=== PATIENT | male | born 1950 | race Hispanic/Latino ===

== ENCOUNTER 2024-12-04 06:41 | Inpatient (IN) | payer MEDICARE ==
[2024-12-04] VITALS (21 sets, daily range): BP systolic 90–146; BP diastolic 42–70; PULSE 75–103; RESP 10–21; TEMP 98.2–99.1; O2SAT 97
[~2024-12-04] VITALS: Ht 172.7 cm; Wt 82.6 kg
[2024-12-04 07:22] LABS: IMMATURE GRANULOCYTE ABSOLUTE 0.03 K/uL (0-1); NUCLEATED RED BLOOD CELLS 0.0 % (0.0-0.19); PLATELET COUNT (AUTO) 145 K/uL (130-400); RED BLOOD CELL COUNT(AUTO) 4.32 MIL/uL (4.50-6.20); RED CELL DISTRIBUTION WIDTH 12.6 % (11.0-15.5); WHITE BLOOD COUNT (AUTO) 7.9 K/uL (4.8-10.8)
--- NOTE | 2024-12-04 07:23 | ERN ---
General Chief Complaint: Hypotension Stated Complaint: C/O WEAKNESS,DIZZINESS,LEFT FLANK PAIN, N X V Time Seen by MD: 06:57 Source: patient, family History of Present Illness Initial Comments 74-year-old male with no past medical history comes in with a history of vomiting for four days and is now hypotensive. Per patient these symptoms began three days ago. Patient felt very weak and has been having nauseousness as well Allergies: Coded Allergies: No Known Allergies (Unverified Allergy, Unknown, 12/04/24) Past Medical History Past Medical History: No Pertinent History Past Surgical History: Other Surgical History Other: POLYP REMOVED Constitutional: (-) chills, (-) diaphoresis, (-) fever, (-) malaise, (-) weakness, (-) other documentation EENTM: (-) eye pain, (-) blurred vision, (-) tearing, (-) double vision, (-) ear pain, (-) ear discharge, (-) nose pain, (-) nose congestion, (-) throat pain, (-) Throat swelling, (-) mouth pain, (-) tooth pain, (-) mouth swelling, (-) other documentation Respiratory: (-) cough, (-) orthopnea, (-) short of breath, (-) stridor, (-) wheezing, (-) other documentation Cardiovascular: (-) chest pain, (-) edema, (-) palpitations, (-) syncope, (-) dyspnea on exertion, (-) other documentation Gastrointestinal/Abdominal: (+) nausea, (+) diarrhea Genitourinary: (-) penile discharge, (-) dysuria, (-) frequency, (-) hematuria, (-) pain, (-) other documentation Musculoskeletal: (-) Neck pain, (-) back pain, (-) Flank Pain, (-) joint pain, (-) joint swelling, (-) muscle pain, (-) muscle stiffness, (-) gout, (-) other documentation Skin: (-) laceration, (-) contusion, (-) abrasion, (-) abscess, (-) rash, (-) change in color, (-) change in hair, (-) change in nails, (-) diaphoresis, (-) dryness, (-) other documentation Neuro: (+) syncope Physical Exam General Appearance: (+) mild distress Orientation: (+) alert, (+) oriented x 3 Head/Face Trauma: No Eye: bilateral eye normal inspection, bilateral eye PERRL, bilateral eye EOMI Ear, Nose, Throat: (+) hearing grossly normal, (+) normal ENT inspection, (+) moist mucous membraine Neck: (+) normal inspection, (+) supple Respiratory: (+) chest non-tender, (+) lungs clear, (+) well ventilated Heart: (+) regular, (+) no gallop Vascular: (+) no edema, (+) normal peripheral pulse, (+) no JVD Gastrointestinal: (+) soft, (+) non-tender, (+) no organomegaly, (+) bowel sound present Results Laboratory and Microbiology Lab and Micro Result Laboratory Tests Test 12/04/24 07:14 12/04/24 08:22 White Blood Count 7.9 K/uL (4.8-10.8) Red Blood Count 4.32 MIL/uL (4.50-6.20) L Hemoglobin 14.2 g/dL (14.0-18.0) Hematocrit 38.7 % (42-54) L Mean Corpuscular Volume 89.6 fL (79-99) Mean Corpuscular Hemoglobin 32.9 pg (27.0-33.0) Mean Corpuscular Hemoglobin Concent 36.7 g/dL (32.0-36.0) H Red Cell Distribution Width 12.6 % (11.0-15.5) Platelet Count 145 K/uL (130-400) Mean Platelet Volume 10.1 fL (7.5-10.5) Immature Granulocyte % (Auto) 0.4 % (0-1) Neutrophils (%) (Auto) 96.6 % (40.0-77.0) H Lymphocytes (%) (Auto) 2.5 % (21.0-51.0) L Monocytes (%) (Auto) 0.3 % (3.0-13.0) L Eosinophils (%) (Auto) 0.1 % (0.0-8.0) Basophils (%) (Auto) 0.1 % (0.0-5.0) Neutrophils # (Auto) 7.6 K/uL (1.8-7.7) Lymphocytes # (Auto) 0.2 K/uL (1.0-4.8) L Monocytes # (Auto) 0.0 K/uL (0.1-1.0) L Eosinophils # (Auto) 0.01 K/uL (0.00-0.70) Basophils # (Auto) 0.01 K/uL (0.00-0.20) Absolute Immature Granulocyte (auto 0.03 K/uL (0-1) Nucleated Red Blood Cells 0.0 % (0.0-0.19) White Cell Morphology Comment See comments Red Blood Cell Morphology See comments Sodium Level 139 mmol/L (136-145) Potassium Level 3.2 mmol/L (3.5-5.1) L Chloride Level 106 mmol/L (101-111) Carbon Dioxide Level 18 mmol/L (21-32) L Blood Urea Nitrogen 23 mg/dL (7-18) H Creatinine 1.7 mg/dL (0.5-1.3) H Glomerular Filtration Rate Calc 42 mL/min (>90) Random Glucose 137 mg/dL (70-105) H Lactic Acid Level 5.3 mmol/L (0.8-2.5) H Total Calcium 8.6 mg/dL (8.5-10.1) Total Bilirubin 3.7 mg/dL (0.2-1.0) H Aspartate Amino Transf (AST/SGOT) 129 U/L (10-37) H Alanine Aminotransferase (ALT/SGPT) 82 U/L (12-78) H Alkaline Phosphatase 157 U/L (50-136) H Troponin I High Sensitivity 99 ng/L (4-75) *H 148 ng/L (4-75) *H B-Type Natriuretic Peptide 78 pg/mL (0-100) Total Protein 6.6 g/dL (6.0-8.3) Albumin 2.8 g/dL (3.5-5.0) L Lipase 94 U/L (16-77) H Procalcitonin 11.63 ng/mL (0.05-0.5) H Labs Reviewed?: Yes EKG/XRAY/US/CT/MRI EKG Comment 12/04/2024 time 7:05 a.m. Ventricular rate 106 Sinus tachycardia ID [id number] wave elevation or depression Ultrasound Comment IMAGING REPORT Signed PATIENT: OSITO MONTEZ MR#: [id number] : 1950 SEX: M AGE: 74 LOCATION: [facility] ORDER 4 STATUS: REG ER REPORT#: [id number] SERVICE [id number] REASON: ruq pain ORDERING PHYSICIAN: SUSIE ARNDT MD PROCEDURE: ABDRUQLTD - US ABDOMINAL RUQ\LTD EXAM: US Abdomen, Right Upper Quadrant. CLINICAL HISTORY: ruq pain TECHNIQUE: Right upper quadrant sonography performed with image documentation. COMPARISON: None provided. FINDINGS: Moderate LIVER: Within normal limits in size( 15 cm) and echogenicity. No mass. GALLBLADDER: Calculi noted within gall bladder lumen. No gallbladder wall thickening (2mm) seen. COMMON BILE DUCT: Within normal limits in size (4 mm). Prominent left intrahepatic biliary duct, measuring 3mm. PANCREAS: The distal pancreas is obscured by bowel gas. The visualized portion of the pancreas appears within normal limits. RIGHT KIDNEY: Unremarkable, measuring 10.3 x 5.2 x 4.2 cm.. Normal renal contours. No renal mass or calculus. No hydronephrosis. IMPRESSION: Cholelithiasis. Prominent left intrahepatic biliary duct, measuring 3mm. MRI/MRCP recommended for further evaluation. /[place] DICTATED BY: FARIDEH FINN MD DATE: 12/04/24922 ELECTRONICALLY SIGNED BY: FARIDEH FINN MD DATE: 12/04/249[address] [place] [id number] IMAGING REPORT Signed PATIENT: OSITO MONTEZ MR#: [id number] : 1950 SEX: M AGE: 74 LOCATION: ED ORDER 3 STATUS: REG ER REPORT#: [id number] SERVICE 2 REASON: left flank pain ORDERING PHYSICIAN: SUSIE ARNDT MD PROCEDURE: ABD PEL WO - CT ABDOMEN/PELVIS W/O CONTRAST EXAM: CT Abdomen and Pelvis Without IV contrast CLINICAL HISTORY: left flank pain TECHNIQUE: Axial computed tomography images of the abdomen and pelvis without intravenous contrast. CONTRAST: No IV contrast. COMPARISON: None provided. FINDINGS: LUNG BASES: The lung bases appear clear. No pleural effusions are seen. LIVER: Fatty liver. GALLBLADDER AND BILE DUCTS: Cholelithiasis. Cholelithiasis. PANCREAS: Unremarkable. SPLEEN: Unremarkable. ADRENAL GLANDS: Unremarkable. KIDNEYS, URETERS, AND BLADDER: The kidneys appear within normal limits. There is no hydronephrosis or hydroureter. No urinary calculi are seen. STOMACH AND BOWEL: Status post extended right colectomy with ileocolic anastomosis. APPENDIX: No evidence of acute appendicitis on CT examination. PERITONEUM: No free fluid. No free air. LYMPH NODES: No lymphadenopathy is evident. REPRODUCTIVE: Unremarkable as visualized. VASCULATURE: No evidence of abdominal aortic aneurysm. BONES: Moderate degenerative disc of the spine. MISCELLANEOUS: Fat-containing umbilical hernia. IMPRESSION: 1. No acute intraabdominal or pelvic pathology. 2. Fatty liver. 3. Cholelithiasis. 4. Status post extended right colectomy with ileocolic anastomosis. 5. Fat-containing umbilical hernia. 6. Moderate degenerative disc disease of the spine. /[place] DICTATED BY: FARIDEH FINN MD DATE: 12/04/24 100 ELECTRONICALLY SIGNED BY: FARIDEH FINN MD DATE: 12/04/24 1003 [facility] MDM: Differential diagnosis: Gastroenteritis, dehydration, DKA, acute CA, UTI, cholecystitis, sepsis Rationale: Tests considered and ordered secondary to shared decision making include: Previous outside records reviewed: Old ER visits. Risk of complication and/or morbidity or mortality of patient management: None Medications-Per medication reconciliation Need for hospitalization: Patient does meet criteria for hospitalization. Need for emergency major/minor surgery: No There are no social concerns with this patient. Prescription drug management Prescriptions will include symptomatic care Patient's prior external medical records from other ER visits were reviewed by me as indicated. Prior testing and results from previous visits were reviewed. Prior tests were taken into account with medical decision making and resource utilization, independent historian/historians were used to obtain complete medical history. I independently interpreted the test that were performed, results were reviewed by me and considered findings on radiology if ordered. PATIENT WILL BE ADMITTED UNDER THE CARE OF HOSPITALIST GROUP ED Course Orders Procedure Category Date Status Time Comprehensive LAB 12/04/24 Complete Metabolic Panel 07:07 Cbc With Differential LAB 12/04/24 Complete 07:07 Urinalysis Profile LAB 12/04/24 Logged 07:07 Troponin I High LAB 12/04/24 Complete Sensitivity 07:07 Lactic Acid LAB 12/04/24 Complete 07:07 Procalcitonin LAB 12/04/24 Complete 07:07 12 Lead Ekg Tracing- EKG 12/04/24 Logged Technical 07:07 Ondansetron 4mg Inj PHA 12/04/24 Complete (Zofran 4mg Inj) 07:30 Lactated Ringers PHA 12/04/24 Complete 1000ml (Lactated 07:07 Lipase LAB 12/04/24 Complete 07:43 Us Abdominal Ruq\Ltd US 12/04/24 Resulted 07:44 Troponin I High LAB 12/04/24 Complete Sensitivity 07:46 B-Type Natriuretic LAB 12/04/24 Complete Peptide 07:52 Ct Abdomen/Pelvis W/O CT 12/04/24 Resulted Contrast 07:53 Acetaminophen 500mg PHA 12/04/24 Complete Tab (Tylenol 500mg T 08:30 Zosyn 3.375gm+Ns 50ml PHA 12/04/24 In Process (Zosyn 3.375gm+Ns 09:30 Ns 1000ml @___Ml/Hr X1 PHA 12/04/24 Verified 09:30 Current Medications Medications (Trade) Dose Ordered Sig/Panchito Route PRN Reason Start Time Stop Time Status Last Admin Dose Admin Acetaminophen (TYLenol 500MG TAB) 1,000 mg ONCE ONCE PO 12/04/24 08:30 12/04/24 08:31 DC 12/04/24 08:29 Lactated Ringer's (Lactated Ringers 1000ml) 1,000 ml BOLUS STAT IV 12/04/24 07:07 12/04/24 07:14 DC 12/04/24 07:40 Ondansetron HCl (zoFRAN 4MG INJ) 4 mg ONCE ONCE IVP 12/04/24 07:30 12/04/24 07:31 DC 12/04/24 07:40 Piperacillin Sod/ Tazobactam Sod (Zosyn 3.375gm+NS 50ml) 3.375 gm ONCE ONCE IV 12/04/24 09:30 12/04/24 09:31 Vital Signs Date Time Temp Pulse Resp B/P (MAP) Pulse Ox O2 Delivery O2 Flow Rate FiO2 12/04/24 08:49 98.4 89 19 95/48 99 Room Air* 0 21 12/04/24 08:29 100.0 12/04/24 07:48 100.0 95 18 93/40 99 Room Air* 0 21 12/04/24 07:34 100.0 102 18 87/47 99 Room Air* 0 21 12/04/24 07:17 102 18 82/48 97 Room Air* 0 21 12/04/24 06:47 100.8 74 20 89/47 96 Room Air Critical Care Note Comments CRITICAL CARE PROCEDURE NOTE AUTHORIZED AND PERFORMED BY: ME TOTAL CRITICAL CARE TIME: APPROXIMATELY 36 MINUTES DUE TO A HIGH PROBABILITY OF CLINICALLY SIGNIFICANT, LIFE THREATENING DETERIORATION, THE PATIENT REQUIRED MY HIGHEST LEVEL OF PREPAREDNESS TO INTERVEN E EMERGENTLY AND I PERSONALLY SPENT THIS CRITICAL CARE TIME DIRECTLY AND PERSONALLY MANAGING THE PATIENT. THIS CRITICAL CARE TIME INCLUDED OBTAINING A HISTORY; EXAMINING THE PATIENT; PULSE OXIMETRY; ORDERING AND REVIEW OF STUDIES; ARRANGING URGENT TREATMENT WITH DEVELOPMENT OF A MANAGEMENT PLAN; EVALUATION OF PATIENT'S RESPONSE TO TREATMENT; FREQUENT REASSESSMENT; AND, DISCUSSIONS WITH OTHER PROVIDERS. THIS CRITICAL CARE TIME WAS PERFORMED TO ASSESS AND MANAGE THE HIGH PROBABILITY OF IMMINENT, LIFE-THREATENING DETERIORATION THAT COULD RESULT IN MULTI-ORGAN FAILURE. IT WAS EXCLUSIVE OF SEPARATELY BILLABLE PROCEDURES AND TREATING OTHER PATIENTS AND TEACHING TIME. PLEASE SEE MDM SECTION AND THE REST OF THE NOTE FOR FURTHER INFORMATION ON PATIENT ASSESSMENT AND TREATMENT. DX & DISP Disposition: Inpatient Decision to Admit Time: 09:19 Departure Impression: Primary Impression: Cholecystitis Additional Impressions: Lactic acidosis, ACS (acute coronary syndrome), SHAHRIAR (acute kidney injury), Hypotension, Sepsis Condition: Stable Referrals: NONE (PCP) JC DIALLO MD Dec 04, 2024 07:23 SUSIE ARNDT MD Dec 04, 2024 09:09
[2024-12-04 07:35] LABS: ASPARTATE AMINOTRANSFERASE 129.0 U/L (10-37); CREATININE 1.7 mg/dL (0.5-1.3); GLOMERULAR FILTR. RATE CALC 42.0 mL/min (>90); GLUCOSE,RANDOM 137.0 mg/dL (70-105); SODIUM SERUM 139.0 mmol/L (136-145); TOTAL PROTEIN, SERUM 6.6 g/dL (6.0-8.3); UREA NITROGEN, BLOOD 23.0 mg/dL (7-18)
[2024-12-04] MEDS: LACTATED RINGERS 1000ML IV STA (07:40)
--- NOTE | 2024-12-04 08:25 | HMCIMG ---
EXAM: US Abdomen, Right Upper Quadrant. CLINICAL HISTORY: ruq pain TECHNIQUE: Right upper quadrant sonography performed with image documentation. COMPARISON: None provided. FINDINGS: Moderate LIVER: Within normal limits in size( 15 cm) and echogenicity. No mass. GALLBLADDER: Calculi noted within gall bladder lumen. No gallbladder wall thickening (2mm) seen. COMMON BILE DUCT: Within normal limits in size (4 mm). Prominent left intrahepatic biliary duct, measuring 3mm. PANCREAS: The distal pancreas is obscured by bowel gas. The visualized portion of the pancreas appears within normal limits. RIGHT KIDNEY: Unremarkable, measuring 10.3 x 5.2 x 4.2 cm.. Normal renal contours. No renal mass or calculus. No hydronephrosis. IMPRESSION: Cholelithiasis. Prominent left intrahepatic biliary duct, measuring 3mm. MRI/MRCP recommended for further evaluation. /[place]
--- NOTE | 2024-12-04 09:05 | HMCIMG ---
EXAM: CT Abdomen and Pelvis Without IV contrast CLINICAL HISTORY: left flank pain TECHNIQUE: Axial computed tomography images of the abdomen and pelvis without intravenous contrast. CONTRAST: No IV contrast. COMPARISON: None provided. FINDINGS: LUNG BASES: The lung bases appear clear. No pleural effusions are seen. LIVER: Fatty liver. GALLBLADDER AND BILE DUCTS: Cholelithiasis. Cholelithiasis. PANCREAS: Unremarkable. SPLEEN: Unremarkable. ADRENAL GLANDS: Unremarkable. KIDNEYS, URETERS, AND BLADDER: The kidneys appear within normal limits. There is no hydronephrosis or hydroureter. No urinary calculi are seen. STOMACH AND BOWEL: Status post extended right colectomy with ileocolic anastomosis. APPENDIX: No evidence of acute appendicitis on CT examination. PERITONEUM: No free fluid. No free air. LYMPH NODES: No lymphadenopathy is evident. REPRODUCTIVE: Unremarkable as visualized. VASCULATURE: No evidence of abdominal aortic aneurysm. BONES: Moderate degenerative disc of the spine. MISCELLANEOUS: Fat-containing umbilical hernia. IMPRESSION: 1. No acute intraabdominal or pelvic pathology. 2. Fatty liver. 3. Cholelithiasis. 4. Status post extended right colectomy with ileocolic anastomosis. 5. Fat-containing umbilical hernia. 6. Moderate degenerative disc disease of the spine. /[place]
[2024-12-04 09:30] LABS: APPEARANCE,URINE CLOUDY (CLEAR); GLUCOSE, URINE (UA) 30 mg/dL (NEGATIVE); LEUKOCYTE ESTERASE ,URINE 500 Leu/uL (NEGATIVE); NITRATE,URINE NEGATIVE (NEGATIVE); OCCULT BLOOD,URINE +- (TRACE) (NEGATIVE)
[2024-12-04] MEDS: 0.9%NACL 1000ML 1,000 ML IV ONE (09:35)
[2024-12-04] MEDS: ZOSYN 3.375GM +NS 50ML IV ONE (09:35)
[2024-12-04 09:39] LABS: ADD UA MICROSCOPIC YES
[2024-12-04 09:46] LABS: NON-SQUAMOUS EPITHELIAL CELL 3 /HPF (0-2); SQUAMOUS EPITHELIAL CELL,UR MANY /HPF (0-2); WBC CLUMP RARE /HPF (0-1)
[2024-12-04] MEDS ORDERED: NITROGLYCERIN 0.4 MG SL TAB SL PRN (11:00)
[2024-12-04] MEDS ORDERED: DEXTROSE 50%-WATER 50 ML DISP.SYRIN IV PRN (11:00)
[2024-12-04] MEDS ORDERED: PoTASSium chloRIDE 20MEQ ER 20 MEQ ERTAB PO PRN (11:00)
[2024-12-04] MEDS ORDERED: guaiFENesin-DM 200/20MG 10ML PO PRN (11:00)
[2024-12-04] MEDS ORDERED: FAMOTIDINE 20MG VIAL IV PRN (11:00)
[2024-12-04] MEDS ORDERED: GLUCAGON 1MG KIT 1 MG ML IM PRN (11:00)
[2024-12-04] MEDS: VANCOMYCIN 1G/250ML KIT 250 ML IV SCH (11:00)
[2024-12-04] MEDS ORDERED: LACTULOSE 20 GM/30 ML UDCUP PO PRN (11:00)
[2024-12-04] MEDS ORDERED: MAG/ALUM/SIMETH 30 ML UDCUP PO PRN (11:00)
--- NOTE | 2024-12-04 11:03 | HP ---
[facility] HISTORY [facility] PHYSICAL Date of Service: Dec 04, 2024 Time of Service: 10:52 PCP:Dr Edgar Villela Admitting: Dr Ruiz, Allergies: No Allergy Information Available, No Known Drug Allergies HISTORY OF PRESENT ILLNESS: [ Patient is 74 years old male with a past medical history of diabetes, hyperlipidemia, obesity, polyp removed, resection of the colon, who came to em ergency department with a complaint of generalized body weakness with the nausea and vomiting that started about five days ago. Family members/sister at the bedside stated that about five days ago patient become very weak up to the point when today he could barely get up from the bed. Patient complains of having a fever but he never checked a temperature so was not able to tell how high it was. Patient stated that his head and body felt very hot. Last bowel movement was yesterday. Ultrasound abdomen showed cholelithiasis. Prominent left intrahepatic biliary duct measuring 3 mm. MRCP recommended for further evaluation. CT abdo men/pelvis was performed as well and showed no acute intra-abdominal or pelvic pathology. Fatty liver. Cholelithiasis, s/p extended right colectomy with ileocolic anastomosis. Fat containing umbilical hernia. Moderate degenerative disc disease of the spine. Most recent vital signs temperature 98.4 pulse 95 respiration 24 blood pressure 88/45 patient is on room air satting 99%. WBC 7.9 hemoglobin 14.2 hematocrit 38.7 platelets 145. Sodium 139 potassium 3.2 CO2 18 BUN 23 creatinine 1.7 GFR 42 lactic 5.3 total bilirubin 3.7 AST 129 ALT 82 troponin 99 and then 148. BNP 78 lipase 94 procalcitonin 11.63. Patient will be admitted under hospitalist care for further evaluation/recommendation. A.m. labs.] REVIEW OF SYSTEMS CONSTITUTIONAL: Denies fevers, chills, or night sweats. No unintentional weight loss reported. Complains of generalized body weakness NEUROLOGICAL: Denies headache, amaurosis fugax, motor weakness, sensory d eficit, vertigo/spinning sensation, gait abnormalities, or tremors. ENT: No hearing loss, otalgia, otorrhea, rhinitis, rhinorrhea, hoarseness, or sore throat. CARDIOVASCULAR: Denies any exertional angina, dyspnea on exertion, orthopnea, paroxysmal nocturnal dyspnea, palpitations, life-threatening arrhythmias, claudication. PULMONARY: Denies any shortness of breath, cough, phlegm/sputum, hemoptysis, pleuritic chest pain. SLEEP: Denies morning headaches, daytime somnolence or napping. Denies difficulty falling asleep, staying asleep, waking from sleep. Denies knowledge of snoring. GASTROINTESTINAL: Denies any type of dysphagia to either liquids or solids. Denies , pyrosis, early satiety, abdominal pain, diarrhea, constipation, or changes in stool consistency or caliber. Denies coffee-ground emesis, hematemesis, hematochezia, or melanotic stools. Complains of nausea and vomiting GENITOURINARY: Denies frequency, urgency, nocturia, hematuria or incontinence (Storage/Irritative symptoms.) Low urinary stream, straining to void, urinary intermittency or hesitancy, splitting of the voiding stream, terminal dribbling. ENDOCRINOLOGIC: Denies polyuria, polydipsia, polyphagia or heat/cold intol erances. HEMATOLOGIC: Denies thrombophilia/previous clots, or coagulopathy/bleeding disorders. ONCOLOGIC: Denies personal history of malignancy. DERMATOLOGIC: Denies rashes or pruritus. PSYCHIATRIC: Denies any suicidal or homicidal ideation. Denies hallucinations. PAST MEDICAL HISTORY: [ Diabetes, hyperlipidemia, obesity] PAST SURGICAL HISTORY: [ Polyps removed, suction] PAST SOCIAL HISTORY: [ Patient denies smoking. Patient drinks occasionally alcohol. Patient denies any drug illicit ] FAMILY HISTORY: [ Patient just moved from another state to [facility] and he lives there with his girlfriend. Patient is independent.] Coded Allergies: No Known Allergies (Unverified Allergy, Unknown, 12/04/24) PHYSICAL EXAM GENERAL APPEARANCE: The patient is awake, alert, and oriented, in no acute cardiopulmonary distress. NEUROLOGICAL: Cranial nerves II-XII grossly intact. Motor is 5/5 in bilateral upper and lower extremities proximal to distal. No sensory deficits. HEENT: Face is symmetric. Pupils are equal and reactive. Extraocular movements are intact. NECK: Supple. No JVD. No thyromegaly. No submental, submandibular, pre- /postauricular, occipital or supraclavicular lymphadenopathy. CHEST: Normal chest expansion. No Telemetry. LUNGS: Absence of any rales, rhonchi or any wheezing. CARDIOVASCULAR: Regular. S1 and S2 normal. No appreciable rubs, murmurs or gallops. ABDOMEN: Soft, nontender, and nondistended. There is no rebound, voluntary guarding, or rigidity. : Deferred. No Mariano. EXTREMITIES: Non-edematous and not cyanotic. No clubbing. Good capillary refill. SKIN: No skin breakdown. Vital Sign (Last 24 Hours) 12/04/24 10:19 Temp 98.4 Pulse 95 Resp 24 B/P (MAP) 88/45 Pulse Ox 99 O2 Delivery Room Air* O2 Flow Rate 0 FiO2 21 LABS: Laboratory: Test 12/04/24 08:30 12/04/24 08:22 12/04/24 07:14 Range/Units Urine Color BROWN YELLOW Urine Appearance CLOUDY H CLEAR Urine pH 5.5 5.0-8.0 Urine Specific [place] 1.025 1.001-1.031 Urine Protein 50 H NEGATIVE mg/dL Urine Glucose (UA) 30 H NEGATIVE mg/dL Urine Ketones NEGATIVE NEGATIVE mg/dL Urine Occult Blood +- (TRACE) H NEGATIVE Urine Nitrate NEGATIVE NEGATIVE Urine Bilirubin 1 H NEGATIVE mg/dL Urine Urobilinogen 12 H 0.2-1.0 mg/dL Urine Leukocyte Esterase 500 H NEGATIVE Karon/uL Urine RBC 2-5 H 0-1 /HPF Urine WBC 26-50 H 0-1 /HPF Urine WBC Clumps (Auto) RARE 0-1 /HPF Urine Squamous Epithelial Cells MANY 0-2 /HPF Urine Non-Squamous Epithelial Cells 3 0-2 /HPF Urine Bacteria RARE None Seen /HPF Urine Cellular Casts (Auto) 6-10 H None Seen /LPF Troponin I High Sensitivity 148 *H 4-75 ng/L White Blood Count 7.9 4.8-10.8 K/uL Red Blood Count 4.32 L 4.50-6.20 MIL/uL Hemoglobin 14.2 14.0-18.0 g/dL Hematocrit 38.7 L 42-54 % Mean Corpuscular Volume 89.6 79-99 fL Mean Corpuscular Hemoglobin 32.9 27.0-33.0 pg Mean Corpuscular Hemoglobin Concent 36.7 H 32.0-36.0 g/dL Red Cell Distribution Width 12.6 11.0-15.5 % Platelet Count 145 130-400 K/uL Mean Platelet Volume 10.1 7.5-10.5 fL Immature Granulocyte % (Auto) 0.4 0-1 % Neutrophils (%) (Auto) 96.6 H 40.0-77.0 % Lymphocytes (%) (Auto) 2.5 L 21.0-51.0 % Monocytes (%) (Auto) 0.3 L 3.0-13.0 % Eosinophils (%) (Auto) 0.1 0.0-8.0 % Basophils (%) (Auto) 0.1 0.0-5.0 % Neutrophils # (Auto) 7.6 1.8-7.7 K/uL Lymphocytes # (Auto) 0.2 L 1.0-4.8 K/uL Monocytes # (Auto) 0.0 L 0.1-1.0 K/uL Eosinophils # (Auto) 0.01 0.00-0.70 K/uL Basophils # (Auto) 0.01 0.00-0.20 K/uL Absolute Immature Granulocyte (auto 0.03 0-1 K/uL Nucleated Red Blood Cells 0.0 0.0-0.19 % White Cell Morphology Comment See comments Red Blood Cell Morphology See comments Sodium Level 139 136-145 mmol/L Potassium Level 3.2 L 3.5-5.1 mmol/L Chloride Level 106 101-111 mmol/L Carbon Dioxide Level 18 L 21-32 mmol/L Blood Urea Nitrogen 23 H 7-18 mg/dL Creatinine 1.7 H 0.5-1.3 mg/dL Glomerular Filtration Rate Calc 42 >90 mL/min Random Glucose 137 H 70-105 mg/dL Lactic Acid Level 5.3 H 0.8-2.5 mmol/L Total Calcium 8.6 8.5-10.1 mg/dL Total Bilirubin 3.7 H 0.2-1.0 mg/dL Aspartate Amino Transf (AST/SGOT) 129 H 10-37 U/L Alanine Aminotransferase (ALT/SGPT) 82 H 12-78 U/L Alkaline Phosphatase 157 H 50-136 U/L B-Type Natriuretic Peptide 78 0-100 pg/mL Total Protein 6.6 6.0-8.3 g/dL Albumin 2.8 L 3.5-5.0 g/dL Lipase 94 H 16-77 U/L Procalcitonin 11.63 H 0.05-0.5 ng/mL Current Medications Medications (Trade) Dose Ordered Sig/Panchito Route PRN Reason Start Time Stop Time Status Last Admin Dose Admin Dextrose (D50w) 50 ml AD PRN IV HYPOGLYCEMIA PROTOCOL 12/04/24 11:00 01/03/25 10:59 Glucagon (Glucagon 1mg Kit) 1 mg AD PRN IM HYPOGLYCEMIA PROTOCOL 12/04/24 11:00 01/03/25 10:59 Insulin Human Regular (humuLIN R 100 UNIT/ML 3ML) INSULIN SLIDING SCAL... ACHS SQ 12/04/24 11:30 01/03/25 11:29 Lactated Ringer's (Lactated Ringers 1000ml) 1,000 ml BOLUS STAT IV 12/04/24 07:07 12/04/24 07:14 DC 12/04/24 07:40 1,000 ML Magnesium Sulfate 50 ml @ 0 mls/hr PROTOCOL PRN IV OTHER [SEE ORDER COMMENTS] 12/04/24 11:00 01/03/25 10:59 Potassium Chloride 100 ml @ 100 mls/hr AD PRN IV POTASSIUM PROTOCOL 12/04/24 11:00 01/03/25 10:59 Potassium Chloride (K-Dur/Klor-Con 20meq) 10 meq AD PRN PO POTASSIUM PROTOCOL 12/04/24 11:00 01/03/25 10:59 Potassium Chloride (KCl 10% Elixir 20meq/15ml) 10 meq AD PRN PO POTASSIUM PROTOCOL 12/04/24 11:00 01/03/25 10:59 DIAGNOSTICS / RADIOLOGY: [ ] ASSESSMENT: [ Sepsis POA Generalized body weakness POA Intractable nausea and vomiting POA Acute kidney injury POA Acute dehydration POA Right flank pain POA Left intrahepatic biliary duct measuring [address] ultrasound abdomen POA Cholelithiasis per ultrasound abdomen POA Fatty liver per CT abdomen/pelvis POA Umbilical hernia per CT abdomen/pelvis POA Moderate degenerative disc disease of the spine per CT abdomen/pelvis POA Uncontrolled diabetes mellitus type 2 with hypoglycemia POA Hypotension POA Acute complicated cystitis POA Acute multifactorial anemia POA Hyperlipidemia POA Obesity POA History of polyp removal History of extended right colectomy with ileocolic anastomosis ] PLAN: [ Patient admitted to PCCU GI consulted Vancomycin and Zosyn antibiotic for sepsis Normal saline at 100 mL/hour Blood culture pending Urine culture pending 2D echo pending Chest x-ray pending MRCP pending HIDA scan pending PT ordered Case management for disposition ordered Urinalysis positive for leukocytosis Patient denies taking any medications at home. Ultrasound abdomen showed cholelithiasis. Prominent left intrahepatic biliary duct measuring 3 mm. MRCP recommended for further evaluation. CT abdomen/pelvis was performed as well and showed no acute intra-abdominal or pelvic pathology. Fatty liver. Cholelithiasis, s/p extended right colectomy with ileocolic anastomosis. Fat containing umbilical hernia. Moderate degenerative disc disease of the spine. ] ADVANCED CARE PLANNING 1. Which of the following were discussed? Hospice Care - Yes / No Therapeutic options - Yes / No Advance Directives - Yes / No Other discussions - 2. Discussed with who? Patient and family members/sister at the bedside 3. Voluntary nature of this service was explained to the patient? Yes / No 4. Amount of time spent - __ more than 35 minutes 5. Reviewed by Physician? (if this service was performed by NPP) Yes / No ATTESTATION BY PHYSICIAN I have seen and examined the patient. I reviewed the documentation, medical decision making, and treatment plan as noted by the mid-level provider above. I agree with the findings and plan of care. LINDA RUIZ MD, [employer] Dec 04, 2024 11:03
[2024-12-04] MEDS: 0.9%NACL 1000ML 1,000 ML IV SCH (11:42)
--- NOTE | 2024-12-04 11:57 | HMCIMG ---
CHEST 1VW REASON: congestion COMPARISON: None. FINDINGS: Single view of the chest was obtained. Lungs are clear. Heart size is normal. There is no pulmonary vascular congestion. Mediastinum and bony thorax appear unremarkable. IMPRESSION: 1. Normal single view chest x-ray.
[2024-12-04 11:58] LABS: INFLUENZA TYPE A Negative For Type A (NEGATIVE); INFLUENZA TYPE B Negative For Type B (NEGATIVE)
--- NOTE | 2024-12-04 12:18 | EKG ---
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
--- NOTE | 2024-12-04 12:23 | NUR ---
PT UPGRADED TO ICU PER DR RUIZ
--- NOTE | 2024-12-04 12:52 | NUR ---
PT CURRENTLY STILL HAVING OR HAS HIS ONGOING ERCP DONE.
[2024-12-04] MEDS ORDERED: GADOTERATE MEGLUMINE 10 MMOL/20 ML VIAL IV ONE (12:59)
--- NOTE | 2024-12-04 13:03 | NUR ---
PT JUST RETURNED FROM HIS ERCP AND IS BACK IN ED 17. TOD ABOUT TO START THE LEVOPHED AT 0.1MCG/KG/MIN
[2024-12-04 13:06] LABS: ABG BASE EXCESS -4.5 mmol/L (-2.0-3.0); ABG HCO3 17.6 mmol/L (21.0-28.0); ABG OXYGEN SATURATION 96.8 % (94.0-98.0); ABG PCO2 26 mmHg (35-48); ABG PH 7.453 (7.350-7.450); DEVICE COMMENT RR VERO; PO2, ARTERIAL BG 82.3 mmHg (83.0-108.0); TEMPERATURE, CELSIUS BG 37.0 CELSIUS (35.5-37.0); VENT MODE, BG ROOM AIR (ROOM AIR)
[2024-12-04] MEDS: NOREPINEPHRIN 4MG/NS 250ML 250 ML IV STA (13:12)
[2024-12-04 13:22] LABS: INR 1.13 (0.85-1.15)
[2024-12-04 13:27] LABS: LDL DIRECT 72 mg/dL (0-99)
[2024-12-04 13:54] LABS: NUCLEATED RED BLOOD CELLS 0.0 % (0.0-0.19); PLATELET COUNT (AUTO) 110.0 K/uL (130-400); RED BLOOD CELL COUNT(AUTO) 3.75 MIL/uL (4.50-6.20); RED CELL DISTRIBUTION WIDTH 13.1 % (11.0-15.5); WHITE BLOOD COUNT (AUTO) 14.0 K/uL (4.8-10.8)
[2024-12-04 13:58] LABS: CREATININE 1.6 mg/dL (0.5-1.3); GLOMERULAR FILTR. RATE CALC 45.0 mL/min (>90); GLUCOSE,RANDOM 159.0 mg/dL (70-105); SODIUM SERUM 140.0 mmol/L (136-145); UREA NITROGEN, BLOOD 21.0 mg/dL (7-18)
[2024-12-04 14:02] LABS: ASPARTATE AMINOTRANSFERASE 101.0 U/L (10-37); TOTAL PROTEIN, SERUM 5.5 g/dL (6.0-8.3)
[2024-12-04 14:25] LABS: AMPHET/METH SCREEN,URINE NEGATIVE (NEGATIVE); BARBITURATE SCREEN, URINE NEGATIVE (NEGATIVE); CANNABINOID SCREEN,URINE NEGATIVE (NEGATIVE); COCAINE SCREEN,URINE NEGATIVE (NEGATIVE)
--- NOTE | 2024-12-04 14:25 | NUR ---
PT TAKEN TO [place] FOR MRCP BY Audience AT 1425, LEVO AND DARRELL CAMARILLONTLY RUNNING.
--- NOTE | 2024-12-04 15:50 | NUR ---
PT ARRIVED FROM [place] DEPT AT 1540 WILL CONTINUE TO MONITOR BP.
--- NOTE | 2024-12-04 15:58 | CONS ---
CONSULT NOTE: Consulting physician: Dr. Solano Consulting service: General surgery Reason for consultation: Cholelithiasis History of present illness: This is a 74-year-old male with a medical history listed below that has been co nsulted to surgery after presenting to the hospital with generalized body weakness with nausea and vomiting that began roughly five days prior. Patient is seen in the ER resting. At no point has patient reporting any abdominal discomfort. Upon initial workup concerns for cholelithiasis noted. WBCs 7.9 with a hemoglobin 14. Patient with a bilirubin of 3.7. Lipase slightly elev ated but under 100. Patient also elevated troponins. Patient's ER however blood pressure was noted to be low when patient is now requiring Levophed. Patient is currently NPO. Patient has gone for HIDA scan currently pending MRCP Medical history: Diabetes, hyperlipidemia, obesity PAST SURGICAL HISTORY: Polyps removed, suction PAST SOCIAL HISTORY: Patient denies smoking. Patient drinks occasionally alcohol. Patient denies any drug illicit FAMILY HISTORY: Patient just moved from another state to [facility] and he lives there with his girlfriend. Patient is independent. Coded Allergies: No Known Allergies (Unverified Allergy, Unknown, 12/04/24) Review of systems: General: No Fever, No Chills, No Night Sweats, No Fatigue, No Malaise, No Appetite, No Other HEENT: No Head Aches, No Visual Changes, No Eye Pain, No Ear Pain, No Dysphasia, No Sinus Congestion, No Post Nasal Drip, No Sore Throat, No Other Pulmonary: No Dyspnea, No Cough, No Pleuritic Chest Pain, No Other Cardiovascular: No: Chest Pain, Palpitations, Orthopnea, Paroxysmal No Dyspnea, Edema, Lt Headedness, Other Gastrointestinal: No: Nausea, Vomiting, Diarrhea, Constipation, Melena, Hematochezia, Other Genitourinary: No Dysuria, No Frequency, No Incontinence, No Hematuria, No Retention, No Other Musculoskeletal: No: other, neck pain, shoulder pain, arm pain, back pain, hand pain, leg pain, foot pain Skin: No Urticaria, No Rash, No Other Neurological: No: Weakness, Numbness, Incoordination, Change in speech, Confusion, Seizures, Other Physical exam: General: Awake alert and oriented Heart: Regular rate and rhythm} Lungs: Clear to auscultation no distress Abdomen: [Soft, nontender, nondistended Assessment: This is a 74-year-old male with concerns of cholelithiasis Plan: At this point in time we will await HIDA scan and MRCP findings If concerns of choledocholithiasis noted GI team to be consulted If patient will need surgery this hospitalization he will likely need cardiac clearance due to elevated troponins For now continue with conservative management Patient to be allowed clear liquids after all imaging complete Doctor Henry to be updated in patient's status and surgical team to follow patient closely Surgical case has been discussed with my supervising physician in the above plan was formulated and agreed upon Supervising physicians evaluation the patient be done within next 24 hours We appreciate the hospitalist team for us to participate in patient's care. Greater than 55 minutes of time spent patient, reviewing chart, working on documentation ALAINA VOGEL Jr. Dec 04, 2024 15:58
--- NOTE | 2024-12-04 16:14 | NUR ---
DCP:HOME Pt states that he moved down to the [place] from [place] less than a year ago. Pt states that he currently lives with his girlfriend Joyce Garcia [phone]. pt does not have any DME, home health, or provider services. Pt states that he can complete ADLs independently. PCP is going to be Edgar Villela. At [place] pt will want to go home and family can assist with transportation. Addendum: 12/04/24 at 1617 by SNEHAL SHOOK SS Amended: Links added.
--- NOTE | 2024-12-04 16:19 | HMCSR ---
APPROVED REPORT EXAM: Two-dimensional and M-mode echocardiogram with Doppler and color Doppler. INDICATION ICD: Congestive heart failure 2D Dimensions RVDd3.5 cmLVEF(%)50.6 (>50%)LVED Vol(simp.)73.0 mL IVSd1.0 (0.7-1.1cm)FS(%)26 %LVES Vol(simp.)31.0 mL LVDd4.4 (3.8-5.6cm)LA (2D)3.4 (1.6-4.0cm)LVEF(%, simp.)57 % PWd1.0 (0.7-1.1cm)Ao Root(2D)2.5 (2.0-3.7cm)LA ESV INDEX (BP)25.56 mL/m2 LVDs3.3 (2.5-4.0cm)LVOT diam2.2 (1.8-2.4cm) IVC diam1.7 cm Deformation Strain Apical 4-8.9 % Apical 2-16.1 % Apical 3-14.8 % Global Strain-13.3 % M-Mode Dimensions EPSS0.8 cm LA (MM)3.3 (1.6-4.0cm) Ao Root(MM)2.3 (2.0-3.7cm) Aortic Valve AoV Vmax2.0 m/Wilfredo Peak GR15.5 mmHgLVOT Vmax1.0 m/s AoV VTI0.4 mAo Mean GR8.2 mmHgLVOT VTI0.19 m VIJI (VMAX)1.91 cm2AVA (VTI) 2.1 cm2 Mitral Valve MV E Vmax76.1 cm/sDECEL Hoqi698 ms MV A Vmax94.7 cm/sP 1/2 T36 ms E/A ratio0.8MVA (PHT)6.1 cm2 TDI E/E' Izpkhy73.2E/E' Lateral7.7 Medial E' Peak V3.97 cm/sLateral E' Peak V9.88 cm/s Pulmonary Valve PV Vmax1.3 m/sPV VTI0.23 mPV Mean GR3.4 mmHg PV Peak GR6.3 mmHg Tricuspid Valve RAP (EST) 3 mmHgRVSP3.0 mmHg Left Ventricle The left ventricle is normal size. GLS -13.0% There is normal LV segmental wall motion. There is norm al left ventricular wall thickness. The LVEF is > 55%. The left ventricular diastolic function is nor mal. Right Ventricle The right ventricle is normal size. The right ventricular systolic function is normal. Atria The left atrium size is normal. The right atrium size is normal. Aortic Valve Aortic valve is trileaflet, mildly sclerotic and opens well. No aortic regurgitation is present. Ther e is no aortic valvular stenosis. Mitral Valve The mitral valve is normal in structure. There is no mitral valve regurgitation noted. There is no mi tral valve stenosis. Tricuspid Valve The tricuspid valve is normal in structure. There is no tricuspid valve regurgitation noted. Pulmonic Valve Pulmonic valve is not well visualized. There is no pulmonic valvular regurgitation. Great Vessels The aortic root is normal in size. The IVC is normal in size and collapses >50% with inspiration. Pericardium There is no pericardial effusion. Other Information Quality : Technically difficult study due to body habitus Conclusion The left ventricle is normal size. The LVEF is > 55% with normal LV segmental wall motion. The left ventricular diastolic function is normal. The right ventricular systolic function is normal. Both atria are normal in size. No hemodynamically significant valvular abnormalities. There is no pericardial effusion.
[2024-12-04] MEDS: MAGNESIUM 2GM PREMIX 50ML 50 ML IV PRN (17:09)
[2024-12-04] MEDS: ZOSYN 3.375GM+NS 50ML 50 ML IV SCH (17:09)
--- NOTE | 2024-12-04 17:19 | NUR ---
PER PT STATES HE DOES NOT TAKE ANY HOME MEDICATIONS.
[2024-12-04] MEDS: NOREPINEPHRIN 4MG/NS 250ML 250 ML IV SCH (17:23)
--- NOTE | 2024-12-04 17:46 | NUR ---
CALLED TO GIVE REPORT AT 1720, CALLED STATION SPOKE TO HERMAN, CALL DROPPED. CALLED BACK AGAIN 1734 CALLED SPOKE TO STATED NURSE WILL CALL ME BACK. PENDING CALL BACK.
--- NOTE | 2024-12-04 18:38 | NUR ---
REPORT GIVEN TO EVA ALVARENGA AT 1835 PT STABLE NO DISTRESS VITALS WNL NO C/O PAIN. PT TRANSFERRED VIA STRETCHER WITH PERSONAL BELONGINGS GIRLFRIEND AT BEDSIDE.
--- NOTE | 2024-12-04 18:48 | NUR ---
pt arrived to unit at this time, vitals as charted, pt aaox3. no distress noted, pt running levophed drip at 0.1mcg/kg/min. family at bedside.
--- NOTE | 2024-12-04 21:19 | HMCIMG ---
EXAM: HIDA scan INDICATION: Severe RUQ Pain to rule out cholecystitis. REFERENCE EXAMINATION: MRI dated December 04, 2024 TECHNIQUE: Sequential images of the abdomen were obtained in the anterior projection after IV administration of Tc99m Mebrofenin. FINDINGS: Tracer activity throughout the liver is homogeneous without focal defects. There is prompt excretion of the pharmaceutical into the bile ducts and into the small bowel, without evidence of obstruction. There is visualization of the gallbladder at the conclusion of the examination. IMPRESSION: No acute cholecystitis. /[place]
--- NOTE | 2024-12-04 21:23 | HMCIMG ---
EXAM: MRCP MRI Abdomen without Intravenous Contrast. CLINICAL HISTORY: Cholecystitis. TECHNIQUE: Multisequence, multiplanar magnetic resonance images of the abdomen. CONTRAST: None. COMPARISON: CT abdomen and pelvis dated 12/04/2024. FINDINGS: Volume redistribution of the liver with a lobulated hepatic contour, concerning chronic liver parenchymal disease. Mild hepatic steatosis. Cholelithiasis without abnormal wall thickening or pericholecystic fluid. The largest gallstone measures up to 0.5 cm. The CBD, common hepatic duct, right and left hepatic ducts, and cystic duct are normal in caliber. The CBD measures up to 0.4 cm in diameter. There is separate termination of the main pancreatic duct and the common bile duct, suggesting pancreatic divisum, which is a normal variant. The main pancreatic duct is normal in caliber. Mild splenomegaly measures 4.4 cm in the long axis. No focal abnormality within the pancreas or adrenals. 0.6 cm cortical cyst around the left renal upper pole. No abdominal aortic aneurysm. No pathological lymphadenopathy in the abdomen. No ascites. No acute bony abnormality. IMPRESSIONS: Cholelithiasis without acute cholecystitis. No biliary obstruction. Incidental pancreatic divisum. Liver cirrhosis. Mild hepatic steatosis. Mild splenomegaly. Left renal cortical cyst. No gross changes within the limits of cross-modality comparison. /[place]
--- NOTE | 2024-12-04 21:34 | CONS ---
[facility] CONSULTATION NOTE Date Patient Seen: Dec 04, 2024 Time of Visit: 21:34 Supervising Physician: Dr. Bradford Phillips Reason for Consultation: Sepsis, hypotension Primary Care Physician: Attending: Gregorio Hospitalist Team Outpatient Specialists: Inpatient Consults: [facility], critical care team PROBLEM LIST: Sepsis with septic shock, POA, in need of pressors Hypotension POA, not responsive to IV fluids Acute complicated cystitis POA Generalized body weakness POA Intractable nausea and vomiting POA Acute kidney injury POA Acute dehydration POA Right flank pain POA Left intrahepatic biliary duct measuring [address] ultrasound abdomen POA Cholelithiasis per ultrasound abdomen POA Fatty liver per CT abdomen/pelvis POA Umbilical hernia per CT abdomen/pelvis POA Moderate degenerative disc disease of the spine per CT abdomen/pelvis POA Uncontrolled diabetes mellitus type 2 with hypoglycemia POA Acute multifactorial anemia POA Hyperlipidemia POA Obesity POA History of polyp removal History of extended right colectomy with ileocolic anastomosis HPI: Mr. Oreilly is 74 years old male with a past medical history of diabetes, hyperlipidemia, obesity, polyp removed, and resection of the colon who presented to [facility] ED for evaluation of generalized body weakness with the nausea and vomiting onset five days ago. Family members/sister at the bedside stated that about five days ago patient become very weak up to the point when today he could barely get up from the bed. Patient complains of having a fever but he never checked a temperature so was not able to tell how high it was. Patient stated that his head and body felt very hot. Last bowel movement was yesterday. Ultrasound abdomen showed cholelithiasis. Prominent left intrahepatic biliary duct measuring 3 mm. MRCP recommended for further evaluation. CT abdomen/pelvis was performed as well and showed no acute intra-abdominal or pelvic pathology. Fatty liver. Cholelithiasis, s/p extended right colectomy with ileocolic anastomosis. Fat containing umbilical hernia. Moderate de generative disc disease of the spine. Most recent vital signs temperature 98.4 pulse 95 respiration 24 blood pressure 88/45 patient is on room air satting 99%. WBC 7.9 hemoglobin 14.2 hematocrit 38.7 platelets 145. Sodium 139 potassium 3.2 CO2 18 BUN 23 creatinine 1.7 GFR 42 lactic 5.3 total bilirubin 3.7 AST 129 ALT 82 troponin 99 and then 148. BNP 78 lipase 94 procalcitonin 11.63. Patient will be admitted under hospitalist care for further evaluation/recommendation. [facility] critical care team was consulted for sepsis and hypotension. I assessed the patient at bedside in 215. The patient appeared weak, breathing was even and unlabored, in no distress. I informed him of labs, diagnostics and plan of care. The patient denied chest pain, SOB, any other pain, problem or concern. Plan and assessment are listed below. PAST MEDICAL HX: see above PAST SURGICAL HX: Polyps removed, suction SOCIAL HISTORY: No tobacco, ETOH, or illicit drug use Coded Allergies: No Known Allergies (Unverified Allergy, Unknown, 12/04/24) REVIEW OF SYSTEMS: 12 point ROS reviewed with patient. Pertinent positives mentioned above. Otherwise negative. PHYSICAL EXAM: GENERAL: Alert, weak, awake oriented x 3 HEENT: EOMI, Sclera non icteric, moist mucosa NECK: Supple, no JVD, trachea midline LUNGS: Clear breath sounds bilaterally. No wheezes HEART: Regular rate and rhythm. Normal S1 and S2, without murmurs ABD: Abdomen soft, nontender. Bowel sounds present EXT: No clubbing cyanosis or edema NEURO: Alert and oriented X3, follows commands Vital Signs (last 8hr) Date Time Temp Pulse Resp B/P (MAP) Pulse Ox O2 Delivery O2 Flow Rate FiO2 12/04/24 18:48 98.2 78 18 124/60 99 Room Air 12/04/24 18:13 98.4 66 19 160/73 99 Room Air* 0 12/04/24 18:08 98.4 74 21 154/74 96 Room Air* 0 12/04/24 17:45 98.4 74 21 154/74 96 Room Air* 0 12/04/24 17:44 98.4 74 21 154/74 96 Room Air* 0 12/04/24 17:23 136/48 12/04/24 17:04 98.4 74 21 158/64 99 Room Air* 0 12/04/24 16:13 98.4 83 17 103/52 99 Room Air* 0 12/04/24 15:50 98.4 81 21 159/67 99 Room Air* 0 12/04/24 14:25 98.4 84 20 132/64 98 Room Air* 0 12/04/24 14:15 98.4 81 20 156/60 96 Room Air* 0 12/04/24 13:38 98.4 78 10 145/64 22 Room Air* 0 21 LABS: Hematology Labs: Test 12/04/24 13:38 12/04/24 07:14 Range/Units White Blood Count 14.0 #H 4.8-10.8 K/uL Red Blood Count 3.75 L 4.50-6.20 MIL/uL Hemoglobin 12.3 L 14.0-18.0 g/dL Hematocrit 34.9 L 42-54 % Mean Corpuscular Volume 93.1 79-99 fL Mean Corpuscular Hemoglobin 32.8 27.0-33.0 pg Mean Corpuscular Hemoglobin Concent 35.2 32.0-36.0 g/dL Red Cell Distribution Width 13.1 11.0-15.5 % Platelet Count 110 L 130-400 K/uL Mean Platelet Volume 10.2 7.5-10.5 fL Nucleated Red Blood Cells 0.0 0.0-0.19 % Immature Granulocyte % (Auto) 0.4 0-1 % Neutrophils (%) (Auto) 96.6 H 40.0-77.0 % Lymphocytes (%) (Auto) 2.5 L 21.0-51.0 % Monocytes (%) (Auto) 0.3 L 3.0-13.0 % Eosinophils (%) (Auto) 0.1 0.0-8.0 % Basophils (%) (Auto) 0.1 0.0-5.0 % Neutrophils # (Auto) 7.6 1.8-7.7 K/uL Lymphocytes # (Auto) 0.2 L 1.0-4.8 K/uL Monocytes # (Auto) 0.0 L 0.1-1.0 K/uL Eosinophils # (Auto) 0.01 0.00-0.70 K/uL Basophils # (Auto) 0.01 0.00-0.20 K/uL Absolute Immature Granulocyte (auto 0.03 0-1 K/uL White Cell Morphology Comment See comments Red Blood Cell Morphology See comments Chemistry Labs: Test 12/04/24 17:01 12/04/24 16:34 12/04/24 13:38 12/04/24 08:22 Range/Units Lactic Acid Level 3.6 H 0.8-2.5 mmol/L Whole Blood Glucose 169 H 70-110 MG/DL Sodium Level 140 136-145 mmol/L Potassium Level 4.5 3.5-5.1 mmol/L Chloride Level 108 101-111 mmol/L Carbon Dioxide Level 21 21-32 mmol/L Blood Urea Nitrogen 21 H 7-18 mg/dL Creatinine 1.6 H 0.5-1.3 mg/dL Glomerular Filtration Rate Calc 45 >90 mL/min Random Glucose 159 H 70-105 mg/dL Total Calcium 7.7 L 8.5-10.1 mg/dL Magnesium Level 1.50 L 1.80-2.40 mg/dL Total Bilirubin 5.2 #H 0.2-1.0 mg/dL Aspartate Amino Transf (AST/SGOT) 101 H 10-37 U/L Alanine Aminotransferase (ALT/SGPT) 84 H 12-78 U/L Alkaline Phosphatase 112 # 50-136 U/L Total Protein 5.5 L 6.0-8.3 g/dL Albumin 2.2 #L 3.5-5.0 g/dL Troponin I High Sensitivity 148 *H 4-75 ng/L Test 12/04/24 07:14 Range/Units Hemoglobin A1c 7.9 H 4.0-6.0 % Estimated Average Glucose (eAG) 180 H 70-126 mg/dL B-Type Natriuretic Peptide 78 0-100 pg/mL Triglycerides Level 83 30-200 mg/dL Cholesterol Level 100 <200 mg/dL LDL Cholesterol 72 0-99 mg/dL HDL Cholesterol 23 L 29-71 mg/dL Amylase Level 32 25-115 U/L Lipase 82 H 16-77 U/L Procalcitonin 11.63 H 0.05-0.5 ng/mL Coagulation Labs: Test 12/04/24 07:14 Range/Units Prothrombin Time 11.8 H 9.6-11.6 SEC Prothromb Time International Ratio 1.13 0.85-1.15 DIAGNOSTICS / RADIOLOGY RESULTS: [ ] PLAN Patient admitted ICU with continuous cardiac and pulse oxymetry monitoring under the [facility] Hospitalist team and [facility] as critical care consults. Start Levophed IV drip. V/S per ICU. Vancomycin and Zosyn antibiotic for sepsis Normal saline at 100 mL/hour Blood culture pending Urine culture pending 2D echo pending Chest x-ray pending GI consulted MRCP pending HIDA scan pending PT to evaluate and treat Case management for disposition Urinalysis positive for leukocytosis Patient denies taking any medications at home. NEURO: Minimize central acting medications as possible. Fall Precautions. Well lighted room through the day and minimize interruptions through the night to prevent acute delirium. PULMONARY: Supplemental 02 as needed Titrate Fio2 to keep Spo2 > or = 90% DuoNebs and CPT as needed IS hourly while awake for pulmonary hygiene Out of bed to chair as tolerated VAP Bundle CARDIOVASCULAR: Follow hemodynamics. Titrate vasopressor to keep MAP >65 or systolic blood pressure >95mmHg GI & NUTRITION: Continue nutritional support Aspirations precautions Prokinetic agents and laxatives as needed KIDNEYS & ELECTROLYTES: Strict monitoring of intake and output Daily weights Avoid nephrotoxic agents Monitor electrolytes and replace as needed Goal urine output of 30mL/hr or 0.5mL/kg/hr ENDOCRINE: Maintain blood glucose between 100-180 at all times. Insulin sliding scale for blood glucose management INFECTIOUS DISEASE: Trend temperature. Galvan-culture if febrile. HEMATOLOGY & COAGULATION: Monitor H&H. Keep Hgb > 7 Transfuse 1 unit of PRBC for Hgb < 7 Transfuse 1 pack of platelets of platelets < 20, 000 Watch for any signs and symptoms of bleeding SKIN: Pressure ulcer prevention per facility protocol Rehab: PT/OT Code Status: Full Resuscitation Other: Total patient critical care time exceeds 45 minutes excluding all procedures. ATTESTATION BY PHYSICIAN I reviewed the documentation, medical decision making, and treatment plan as noted by the mid-level provider above. I agree with the findings and plan of care. Bradford Phillips MD, [facility] Dec 04, 2024 21:34
[2024-12-04] MEDS: FAMOTIDINE 20MG VIAL IV SCH (22:16)
[2024-12-05] VITALS (106 sets, daily range): BP systolic 90–142; BP diastolic 35–118; PULSE 68–135; RESP 5–44; TEMP 98.1–99.5; O2SAT 94–97
[2024-12-05 05:44] LABS: IMMATURE GRANULOCYTE ABSOLUTE 0.21 K/uL (0-1); NUCLEATED RED BLOOD CELLS 0.0 % (0.0-0.19); PLATELET COUNT (AUTO) 76 K/uL (130-400); RED BLOOD CELL COUNT(AUTO) 3.80 MIL/uL (4.50-6.20); RED CELL DISTRIBUTION WIDTH 13.2 % (11.0-15.5); WHITE BLOOD COUNT (AUTO) 12.3 K/uL (4.8-10.8)
[2024-12-05 06:08] LABS: ASPARTATE AMINOTRANSFERASE 65 U/L (10-37); CREATINE KINASE, TOTAL 49 U/L (21-232); CREATININE 1.5 mg/dL (0.5-1.3); GLOMERULAR FILTR. RATE CALC 49 mL/min (>90); GLUCOSE,RANDOM 102 mg/dL (70-105); LACTATE DEHYDROGENASE 207 U/L (81-234); SODIUM SERUM 144 mmol/L (136-145); TOTAL PROTEIN, SERUM 5.9 g/dL (6.0-8.3); UREA NITROGEN, BLOOD 24 mg/dL (7-18)
--- NOTE | 2024-12-05 11:23 | CONS ---
GASTROENTEROLOGY CONSULTATION REASON FOR CONSULTATION: Nausea with vomiting, weight loss, jaundice, acute anemia, elevated liver chemistries, hemoccult positive stool, hepatic cirrhosis, and cholelithiasis, fatty liver. HISTORY OF PRESENT ILLNESS: The patient is a 74-year-old male with history of hyperlipidemia, diabetes mellitus, obesity, and colon resection for large colon polyp, who was admitted with generalized weakness, nausea, vomiting, who has acute anemia in labs, weight loss, jaundice with elevated liver chemistries, hemoccult positive stool, and abdominal imaging which showed cholelithiasis, hepatic cirrhosis, and fatty liver . According to the patient, he has been having nausea and vomiting, which started 5 days ago. He has lost 12 pounds unintentionally over this time. He denies any melena, hematochezia, constipation, diarrhea, history of PUD, or NSAID use. He denies any abdominal trauma. He was noted to have elevated liver chemistries on recent labs and he is anemic also. Ultrasound and MRCP showed hepatic cirrhosis and cholelithiasis with no evidence of biliary ductal dilation, stricture or mass lesion. The patient was noted to have fatty liver also on MRCP. He has no family history of colon cancer, stomach cancer, gallbladder disease or IBD. The patient himself had colon polyps removed years ago. ALLERGIES: No known drug allergies. PAST MEDICAL AND PAST SURGICAL HISTORY: See above. Also hyperlipidemia, DM, obesity, colon polyp but no CAD, MA, CVA, seizure disorder, PUD, or asthma. MEDICATIONS: Vancomycin, subcutaneous heparin, IV Zosyn, norepinephrine, cefepime, insulin, hydralazine, morphine, ketorolac, famotidine, calcium chloride supplement. SOCIAL HISTORY: The patient denies alcohol use, tobacco use, or illicit drug use. FAMILY HISTORY: No family history of colon cancer, stomach cancer or IBD. He denies family history of DM, hypertension, CAD, MA, and CVA also. Sister had colon polyps though. REVIEW OF SYSTEMS: CONSTITUTIONAL: The patient reports generalized weakness has improved since hospitalization. Nausea and vomiting has subsided. He has no gross GI bleed or abdominal pain. OPHTHALMOLOGY: No recent vision, change, eye pain, periorbital swelling, redness or drainage. ENT: No ear pain, tinnitus, hearing loss, nasal congestion, rhinorrhea, sore throat, or voice changes. RESPIRATORY: No wheeze, rhinorrhea, epistaxis, chest congestion, or cough. CARDIOVASCULAR: No chest pain, palpitations, or leg swelling. GENITOURINARY: No dysuria, hematuria, or urinary frequency. MUSCULOSKELETAL: No joint pain, joint swelling, or backache. NEUROLOGY: No tingling, numbness, vision changes, hearing loss. PSYCHIATRY: No history of depression, anxiety, suicidal plan or ideation. HEMATOLOGY/LYMPHATICS: The patient denies any inherited bleeding disorders, easy bruising, swollen, tender or palpable lymph node. ENDOCRINOLOGY: Positive for diabetes, hyperlipidemia, but no known thyroid disease. PHYSICAL EXAMINATION: GENERAL: The patient is a 74-year-old male with high body mass index resting in bed in no acute respiratory distress. VITAL SIGNS: Blood pressure 124/60, heart rate 78, respirations 18, temperature 98.2 degrees Fahrenheit. SKIN: Warm and dry with no active dermatosis. HEENT: Head was normocephalic, atraumatic. Pupils reactive. Sclerae are nonicteric. Oral mucosa was moist. No obvious lesions. No blood noted. Nasal mucosa showed no epistaxis, septal deviation or perforation. NECK: No obvious mass. No jugular venous distention. No lymphadenopathy. No thyromegaly. LUNGS: Clear to auscultation bilaterally. HEART: S1, S2. No obvious murmurs, rubs, or gallops auscultated. ABDOMEN: Symmetric, soft with active bowel sounds. No obvious hepatomegaly. No masses. Tenderness noted in the epigastrium and right upper abdominal quadrant, also right mid abdomen. No rebound tenderness. No guarding. EXTREMITIES: No cyanosis, clubbing, or edema. RECTAL: Deferred. NEUROLOGICAL: The patient was awake, alert. Light touch, pain and temperature grossly intact bilaterally. LABORATORY DATA: WBC 14, hemoglobin 12.3, hematocrit 34.9, MCV of 93.1, platelet count of 110. PT 11.8, INR 1.13. Serum chemistry revealed sodium 140, potassium 4.5, chloride 108, CO2 of 21, BUN of 21, creatinine of 1.6, GFR of 45, blood glucose 146, random glucose 159, lactic acid 4.7, total calcium 7.7, magnesium 1.5, bilirubin 5.2 total, AST 101, ALT 84, alkaline phosphatase 112, total protein 5.5, albumin 2.2. UA showed brown, cloudy, urine pH 5.5, specific gravity 1.025, protein 50, glucose 30, ketone negative, trace of occult blood, negative nitrates, bilirubin 1, urobilinogen 12, leukocyte esterase 500, RBC 2-5, WBC 26-50, clumps are rare, WBC clumps rare, many squamous epithelial cells seen, non-squamous epithelial cells 3. Urine bacteria rare. Cellular casts 6-10. Stool occult blood was positive. Group A strep rapid was positive. DIAGNOSTIC DATA: MRCP done showed cholelithiasis without acute cholecystitis, no biliary obstruction, incidental pancreas divisum, liver cirrhosis, myelopathic steatosis, and mild splenomegaly noted. Also left renal cortical cyst. Ultrasound of the abdomen done earlier today showed cholelithiasis, prominent left intrahepatic biliary duct measuring 3 mm within normal limits in size and echogenicity. No masses. HIDA scan showed no acute cholecystitis. CT scan of the abdomen and pelvis done earlier today showed fatty liver cholelithiasis. No acute intraabdominal or pelvic pathology. Evidence of prior right colectomy with ileocolic anastomosis, fat-containing umbilical hernia, moderate degenerative disk disease of the spine. IMPRESSION: 1. Nausea, vomiting, hemoccult positive stool, suggests possible peptic ulcer disease. 2. Acute anemia, likely from peptic ulcer disease as above, but colon polyp colon ulcers, colon cancer to be excluded. 3. Jaundice with elevated liver chemistries, possible from infectious process and less likely biliary obstruction with imaging studies as above. 4. Fatty liver and evidence of hepatic cirrhosis. 5. Cholelithiasis. 6. Obesity. 7. Diabetes mellitus. 8. Hyperlipidemia. 9. History of colon polyp with heme-positive stool and anemia suggests possible colon ulcers, colon polyps or colon cancer. PLAN: 1. Recommend EGD for further evaluation and management. 2. Follow up with a.m. labs including liver chemistries, CBC. 3. Check urine culture. 4. Recommend colonoscopy also. 5. Continue to monitor CBC and transfuse PRBC as needed for hemoglobin of 7. Thank you for allowing me to participate in the care of this patient. TID: [id number] RECEIPT: [id number] cc: Dr. Solano
[2024-12-05] MEDS: VANCOMYCIN 1G/250ML KIT 250 ML IV SCH (11:57)
--- NOTE | 2024-12-05 12:02 | PN ---
[facility] PROGRESS NOTE Date of Service: Dec 05, 2024 Time of Service: 11:57 SUBJECTIVE: 12/05 the patient has been seen and examined at bedside, case discussed with the RN, patient admitted to the ICU, remains on Levophed for blood pressure support, BP 105/44, afebrile, saturating normal on room air. During my visit the patient is alert and oriented x3, he denies chest pain, no shortness a breath, no nausea, no vomiting, no abdominal pain, no diarrhea. WBC slowly trending down, today 12.3, hemoglobin 12.4, hematocrit 34.8, with a platelet count of 76. Stool occult blood positive. Group A strep a rapid test is positive. Total bilirubin of 7.2. MRCP showing cholelithiasis without acute cholecystitis, no biliary obstruction, incidental pancreatic divisum, he per cirrhosis, hepatic steatosis, mild splenomegaly, left renal cortical cyst. HIDA scan no acute cholecystitis. Echocardiogram showing LVEF 55%, left ventricle diastolic function is normal, the right ventricular systolic function is normal, the atria are normal in size, no hemodynamically significant valvular abnormalities, how pericardial effusion. Blood culture positive for Gram-negative rods 2/2 blood sets. Urine culture [id number] CFU, identification and susceptibilities in process. Patient evaluated by GI, recommended EGD for further evaluation. Recommended also colonoscopy. REVIEW OF SYSTEMS CONSTITUTIONAL: Denies fevers, chills, or night sweats. No unintentional weight loss reported. Complains of generalized body weakness NEUROLOGICAL: Denies headache, amaurosis fugax, motor weakness, sensory deficit, vertigo/spinning sensation, gait abnormalities, or tremors. ENT: No hearing loss, otalgia, otorrhea, rhinitis, rhinorrhea, hoarseness, or sore throat. CARDIOVASCULAR: Denies any exertional angina, dyspnea on exertion, orthopnea, paroxysmal nocturnal dyspnea, palpitations, life-threatening arrhythmias, claudication. PULMONARY: Denies any shortness of breath, cough, phlegm/sputum, hemoptysis, pleuritic chest pain. SLEEP: Denies morning headaches, daytime somnolence or napping. Denies difficulty falling asleep, staying asleep, waking from sleep. Denies knowledge of snoring. GASTROINTESTINAL: Denies any type of dysphagia to either liquids or solids. Denies , pyrosis, early satiety, abdominal pain, diarrhea, constipation, or changes in stool consistency or caliber. Denies coffee-ground emesis, hematemesis, hematochezia, or melanotic stools. Complains of nausea and vomiting GENITOURINARY: Denies frequency, urgency, nocturia, hematuria or incontinence (Storage/Irritative symptoms.) Low urinary stream, straining to void, urinary intermittency or hesitancy, splitting of the voiding stream, terminal dribbling. ENDOCRINOLOGIC: Denies polyuria, polydipsia, polyphagia or heat/cold intolerances. HEMATOLOGIC: Denies thrombophilia/previous clots, or coagulopathy/bleeding disorders. ONCOLOGIC: Denies personal history of malignancy. DERMATOLOGIC: Denies rashes or pruritus. PSYCHIATRIC: Denies any suicidal or homicidal ideation. Denies hallucinations. PHYSICAL EXAM GENERAL APPEARANCE: The patient is awake, alert, and oriented, in no acute cardiopulmonary distress. NEUROLOGICAL: Cranial nerves II-XII grossly intact. Motor is 5/5 in bilateral upper and lower extremities proximal to distal. No sensory deficits. HEENT: Face is symmetric. Pupils are equal and reactive. Extraocular movements are intact. NECK: Supple. No JVD. No thyromegaly. No submental, submandibular, pre- /postauricular, occipital or supraclavicular lymphadenopathy. CHEST: Normal chest expansion. No Telemetry. LUNGS: Absence of any rales, rhonchi or any wheezing. CARDIOVASCULAR: Regular. S1 and S2 normal. No appreciable rubs, murmurs or gallops. ABDOMEN: Soft, nontender, and nondistended. There is no rebound, voluntary guarding, or rigidity. : Deferred. No Mariano. EXTREMITIES: Non-edematous and not cyanotic. No clubbing. Good capillary refill. SKIN: No skin breakdown. Vital Signs (last 8hr) Date Time Temp Pulse Resp B/P (MAP) Pulse Ox O2 Delivery O2 Flow Rate FiO2 12/05/24 10:00 84 18 105/44 (64) 97 21 12/05/24 09:45 90 6 99/57 (71) 98 21 12/05/24 09:30 83 16 90/46 (61) 98 21 12/05/24 09:15 87 13 100/50 (67) 99 21 12/05/24 09:00 86 22 104/55 (71) 97 21 12/05/24 08:45 90 17 106/52 (70) 98 21 12/05/24 08:30 93 20 98/55 (69) 98 21 12/05/24 08:15 91 9 99/43 (61) 97 21 12/05/24 08:02 97 Room Air* 0 21 12/05/24 08:00 96 8 101/55 (70) 98 21 12/05/24 08:00 98.1 Room Air 21 12/05/24 07:45 95 6 92/55 (67) 97 12/05/24 07:30 98 18 105/58 (74) 97 12/05/24 07:15 95 20 105/47 (66) 97 12/05/24 07:00 99 21 100/51 (67) 97 21 12/05/24 06:45 98 15 96/48 (64) 97 12/05/24 06:30 99 18 96/49 (65) 97 12/05/24 06:15 101 17 116/53 (74) 97 12/05/24 06:00 103 24 104/54 (71) 96 21 12/05/24 05:45 95 25 105/57 (73) 95 12/05/24 05:30 94 20 111/49 (69) 95 12/05/24 05:15 96 15 110/57 (74) 96 12/05/24 05:00 82 16 111/49 (69) 95 21 12/05/24 04:45 92 15 117/58 (77) 96 12/05/24 04:30 96 18 133/65 (87) 98 12/05/24 04:15 94 20 127/98 (108) 96 12/05/24 04:00 98.2 Room Air 21 12/05/24 04:00 98.2 82 24 115/59 (77) 98 21 12/05/24 04:00 97 Room Air* 0 21 LABS: Laboratory: Test 12/05/24 09:46 12/05/24 05:27 12/04/24 22:27 12/04/24 14:22 Range/Units Lactic Acid Level 2.3 0.8-2.5 mmol/L White Blood Count 12.3 H 4.8-10.8 K/uL Red Blood Count 3.80 L 4.50-6.20 MIL/uL Hemoglobin 12.4 L 14.0-18.0 g/dL Hematocrit 34.8 L 42-54 % Mean Corpuscular Volume 91.6 79-99 fL Mean Corpuscular Hemoglobin 32.6 27.0-33.0 pg Mean Corpuscular Hemoglobin Concent 35.6 32.0-36.0 g/dL Red Cell Distribution Width 13.2 11.0-15.5 % Platelet Count 76 #L 130-400 K/uL Mean Platelet Volume 10.4 7.5-10.5 fL Immature Granulocyte % (Auto) 1.7 H 0-1 % Neutrophils (%) (Auto) 90.4 H 40.0-77.0 % Lymphocytes (%) (Auto) 4.5 L 21.0-51.0 % Monocytes (%) (Auto) 2.8 L 3.0-13.0 % Eosinophils (%) (Auto) 0.4 0.0-8.0 % Basophils (%) (Auto) 0.2 0.0-5.0 % Neutrophils # (Auto) 11.1 H 1.8-7.7 K/uL Lymphocytes # (Auto) 0.6 L 1.0-4.8 K/uL Monocytes # (Auto) 0.3 0.1-1.0 K/uL Eosinophils # (Auto) 0.05 0.00-0.70 K/uL Basophils # (Auto) 0.03 0.00-0.20 K/uL Absolute Immature Granulocyte (auto 0.21 0-1 K/uL Nucleated Red Blood Cells 0.0 0.0-0.19 % Sodium Level 144 136-145 mmol/L Potassium Level 4.6 3.5-5.1 mmol/L Chloride Level 111 101-111 mmol/L Carbon Dioxide Level 22 21-32 mmol/L Blood Urea Nitrogen 24 H 7-18 mg/dL Creatinine 1.5 H 0.5-1.3 mg/dL Glomerular Filtration Rate Calc 49 >90 mL/min Random Glucose 102 70-105 mg/dL Hemoglobin A1c 7.3 H 4.0-6.0 % Estimated Average Glucose (eAG) 163 H 70-126 mg/dL Total Calcium 7.9 L 8.5-10.1 mg/dL Magnesium Level 2.10 1.80-2.40 mg/dL Total Bilirubin 7.2 #H 0.2-1.0 mg/dL Direct Bilirubin 6.0 H 0.0-0.3 mg/dL Aspartate Amino Transf (AST/SGOT) 65 H 10-37 U/L Alanine Aminotransferase (ALT/SGPT) 64 # 12-78 U/L Alkaline Phosphatase 108 50-136 U/L Ammonia < 10 L 11-32 umol/L Lactate Dehydrogenase 207 81-234 U/L Total Creatine Kinase 49 21-232 U/L Troponin I High Sensitivity 534 *H 4-75 ng/L B-Type Natriuretic Peptide 412 H 0-100 pg/mL Total Protein 5.9 L 6.0-8.3 g/dL Albumin 2.2 L 3.5-5.0 g/dL Amylase Level 15 #L 25-115 U/L Lipase 25 16-77 U/L Procalcitonin 38.56 H 0.05-0.5 ng/mL Thyroid Stimulating Hormone (TSH) 0.74 0.36-3.74 uIU/mL Free Thyroxine (T4) Direct 1.18 0.76-1.46 ng/dL Free Triiodothyronine (T3) pg/mL 0.95 L 2.18-3.98 pg/mL Whole Blood Glucose 131 H 70-110 MG/DL Stool Occult Blood POSITIVE H NEGATIVE Test 12/04/24 14:10 12/04/24 13:30 12/04/24 13:04 12/04/24 11:25 Range/Units Group A Streptococcus Rapid positive *A NEGATIVE SARS-CoV-2 Antigen (Rapid) PRESUMPTIVE NEGATIVE NEGATIVE Blood Gas Specimen Type Arterial Arterial Blood pH 7.453 H 7.350-7.450 Arterial Blood Partial Pressure CO2 26 L 35-48 mmHg Arterial Blood Partial Pressure O2 82.3 L 83.0-108.0 mmHg Arterial Blood HCO3 17.6 L 21.0-28.0 mmol/L Arterial Blood Oxygen Saturation 96.8 94.0-98.0 % Arterial Blood Base Excess -4.5 L -2.0-3.0 mmol/L Blood Gas Temperature 37.0 35.5-37.0 CELSIUS Blood Gas Vent Mode ROOM AIR ROOM AIR FiO2 21.0 % Blood Gas Specimen Comment RR VASILE Influenza Type A Antigen Negative For Type A NEGATIVE Influenza Type B Antigen Negative For Type B NEGATIVE Test 12/04/24 08:30 12/04/24 07:14 Range/Units Urine Color BROWN YELLOW Urine Appearance CLOUDY H CLEAR Urine pH 5.5 5.0-8.0 Urine Specific [place] 1.025 1.001-1.031 Urine Protein 50 H NEGATIVE mg/dL Urine Glucose (UA) 30 H NEGATIVE mg/dL Urine Ketones NEGATIVE NEGATIVE mg/dL Urine Occult Blood +- (TRACE) H NEGATIVE Urine Nitrate NEGATIVE NEGATIVE Urine Bilirubin 1 H NEGATIVE mg/dL Urine Urobilinogen 12 H 0.2-1.0 mg/dL Urine Leukocyte Esterase 500 H NEGATIVE Karon/uL Urine RBC 2-5 H 0-1 /HPF Urine WBC 26-50 H 0-1 /HPF Urine WBC Clumps (Auto) RARE 0-1 /HPF Urine Squamous Epithelial Cells MANY 0-2 /HPF Urine Non-Squamous Epithelial Cells 3 0-2 /HPF Urine Bacteria RARE None Seen /HPF Urine Cellular Casts (Auto) 6-10 H None Seen /LPF Urine Opiates Screen NEGATIVE NEGATIVE Urine Barbiturates Screen NEGATIVE NEGATIVE Urine Phencyclidine Screen NEGATIVE NEGATIVE Urine Amphetamines Screen NEGATIVE NEGATIVE Urine Benzodiazepines Screen NEGATIVE NEGATIVE Urine Cocaine Screen NEGATIVE NEGATIVE Urine Marijuana (THC) Screen NEGATIVE NEGATIVE White Cell Morphology Comment See comments Red Blood Cell Morphology See comments Prothrombin Time 11.8 H 9.6-11.6 SEC Prothromb Time International Ratio 1.13 0.85-1.15 Triglycerides Level 83 30-200 mg/dL Cholesterol Level 100 <200 mg/dL LDL Cholesterol 72 0-99 mg/dL HDL Cholesterol 23 L 29-71 mg/dL Current Medications Medications (Trade) Dose Ordered Sig/Panchito Route PRN Reason Start Time Stop Time Status Last Admin Dose Admin Acetaminophen (TYLenol 325MG TAB) 650 mg Q4H PRN PO MILD PAIN (1-3) 12/04/24 11:00 12/04/24 10:57 DC Acetaminophen (TYLenol 325MG TAB) 650 mg Q6H PRN PO MILD PAIN (1-3) 12/04/24 11:00 01/03/25 10:59 Acetaminophen (TYLenol 325MG TAB) 650 mg Q6H PRN PO TEMPERATURE GREATER THAN 101.5 12/04/24 11:00 01/03/25 10:59 Al Hydroxide/Mg Hydroxide (MAALox PLUS 30ML) 30 ml Q6H PRN PO INDIGESTION 12/04/24 11:00 01/03/25 10:59 Cefepime HCl (MAXipime 1 GM vial) 1 gm Q12H IVPB 12/05/24 12:00 12/14/24 15:59 Cefepime HCl (MAXipime 1 GM vial) 1 gm Q8H IVPB 12/04/24 16:00 12/05/24 06:31 DC 12/05/24 00:15 1 GM Dextrose (D50w) 50 ml AD PRN IV HYPOGLYCEMIA PROTOCOL 12/04/24 11:00 01/03/25 10:59 Diphenhydramine HCl (BENAdryl CAP) 25 mg Q4H PRN PO MILD ITCHING/RASH 12/04/24 11:00 01/03/25 10:59 Famotidine (Pepcid 20mg Vial) 20 mg BID PRN IV NAUSEA/VOMITING 12/04/24 11:00 12/04/24 10:57 DC Famotidine (Pepcid 20mg Vial) 20 mg Q24H IV 12/04/24 21:00 01/03/25 20:59 12/04/24 22:16 20 MG Glucagon (Glucagon 1mg Kit) 1 mg AD PRN IM HYPOGLYCEMIA PROTOCOL 12/04/24 11:00 01/03/25 10:59 Guaifenesin/ Dextromethorphan (RobiTUSSin DM 200/20MG 10ML) 10 ml Q4H PRN PO COUGH 12/04/24 11:00 01/03/25 10:59 Heparin Sodium (Porcine) (HEParin 5,000 UNIT VIAL) 5,000 unit BID SQ 12/04/24 21:00 01/03/25 20:59 12/04/24 22:19 5,000 UNIT Hydralazine HCl (APRESOLine 20MG INJ) 10 mg Q6H PRN IV For:SBP above 160;DBP above 90 12/04/24 11:00 12/04/24 13:13 DC Insulin Human Regular (humuLIN R 100 UNIT/ML 3ML) INSULIN SLIDING SCAL... ACHS SQ 12/04/24 11:30 01/03/25 11:29 Ketorolac Tromethamine (toRADol) 15 mg Q8H PRN IV MODERATE PAIN (4-6) 12/04/24 11:00 12/09/24 10:59 12/04/24 22:17 15 MG Lactated Ringer's (Lactated Ringers 1000ml) 1,000 ml BOLUS STAT IV 12/04/24 07:07 12/04/24 07:14 DC 12/04/24 07:40 1,000 ML Lactulose (Constulose 20gm/ 30ml Udcup) 20 gm BID PRN PO CONSTIPATION 12/04/24 11:00 01/03/25 10:59 Magnesium Sulfate 50 ml @ 0 mls/hr PROTOCOL PRN IV OTHER [SEE ORDER COMMENTS] 12/04/24 11:00 01/03/25 10:59 12/04/24 17:09 50 MLS/HR Morphine Sulfate (morPHINE 4MG SYG) 1 mg Q4H PRN IVP SEVERE PAIN (7-10) 12/04/24 11:00 12/11/24 10:59 Nitroglycerin (Nitrostat) 0.4 mg PROTOCOL PRN SL CHEST PAIN 12/04/24 11:00 01/03/25 10:59 Norepinephrine 250 ml @ 0 mls/hr PROTOCOL IV 12/04/24 17:17 01/03/25 17:16 12/04/24 17:23 1 MLS/HR Norepinephrine 250 ml @ 0 mls/hr PROTOCOL STAT IV 12/04/24 12:14 12/04/24 12:18 DC 12/04/24 13:12 0.1 MLS/HR Ondansetron HCl (zoFRAN 4MG INJ) 4 mg Q6H PRN IV NAUSEA/VOMITING 12/04/24 11:00 01/03/25 10:59 Piperacillin Sod/ Tazobactam Sod 50 ml @ 12.5 mls/hr Q8H IV 12/04/24 17:30 12/04/24 21:34 DC 12/04/24 17:09 12.5 MLS/HR Potassium Chloride 100 ml @ 100 mls/hr AD PRN IV POTASSIUM PROTOCOL 12/04/24 11:00 01/03/25 10:59 Potassium Chloride (K-Dur 10meq Sr Tab) 10 meq AD PRN PO POTASSIUM PROTOCOL 12/05/24 07:00 01/03/25 10:59 Potassium Chloride (K-Dur/Klor-Con 20meq) 10 meq AD PRN PO POTASSIUM PROTOCOL 12/04/24 11:00 12/05/24 06:30 DC Potassium Chloride (KCl 10% Elixir 20meq/15ml) 10 meq AD PRN PO POTASSIUM PROTOCOL 12/04/24 11:00 01/03/25 10:59 Sodium Chloride 1,000 ml @ 100 mls/hr Q10H IV 12/04/24 11:00 01/03/25 10:59 12/04/24 22:17 100 MLS/HR Vancomycin HCl 250 ml @ 125 mls/hr ONCE IV 12/04/24 11:00 12/04/24 12:59 DC 12/04/24 11:00 125 MLS/HR Vancomycin HCl 250 ml @ 125 mls/hr Q24H IV 12/05/24 11:00 12/15/24 10:59 Zolpidem Tartrate (AmbIEN) 5 mg HS PRN PO INSOMNIA 12/04/24 11:00 01/03/25 10:59 DIAGNOSTICS / RADIOLOGY: [ ] ASSESSMENT: Septic shock, POA Gram-negative bacteremia, POA UTI, POA Generalized body weakness POA Intractable nausea and vomiting POA Acute kidney injury POA Acute dehydration POA Right flank pain POA Left intrahepatic biliary duct measuring [address] ultrasound abdomen POA Cholelithiasis per ultrasound abdomen POA Fatty liver per CT abdomen/pelvis POA Umbilical hernia per CT abdomen/pelvis POA 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 During my visit the patient is alert and oriented x3, he denies chest pain, no shortness a breath, no nausea, no vomiting, no abdominal pain, no diarrhea. WBC slowly trending down, today 12.3, hemoglobin 12.4, hematocrit 34.8, with a platelet count of 76. Stool occult blood positive. Group A strep a rapid test is positive. Total bilirubin of 7.2. MRCP showing cholelithiasis without acute cholecystitis, no biliary obstruction, incidental pancreatic divisum, he per cirrhosis, hepatic steatosis, mild splenomegaly, left renal cortical cyst. HIDA scan no acute cholecystitis. Echocardiogram showing LVEF 55%, left ventricle diastolic function is normal, the right ventricular systolic function is normal, the atria are normal in size, no hemodynamically significant valvular abnormalities, how pericardial effusion. Blood culture positive for Gram-negative rods 2/2 blood sets. Urine culture [id number] CFU, identification and susceptibilities in process. Patient evaluated by GI, recommended EGD for further evaluation. Recommended also colonoscopy. NEURO: Minimize central acting medications as possible. Fall Precautions. Well lighted room through the day and minimize interruptions through the night to prevent acute delirium. PULMONARY: Supplemental 02 as needed BiPAP as necessary, for respiratory distress Titrate Fio2 to keep Spo2 > or = 90% DuoNebs and CPT as needed IS hourly while awake for pulmonary hygiene prn Out of bed to chair as tolerated Maintain aspiration precautions at all times CARDIOVASCULAR: Follow hemodynamics. Vital signs per facility protocol GI & NUTRITION: Continue nutritional support Aspirations precautions Prokinetic agents and laxatives as needed KIDNEYS & ELECTROLYTES: Strict monitoring of intake and output Daily weights Avoid nephrotoxic agents Monitor electrolytes and replace as needed Goal urine output of 30mL/hr or 0.5mL/kg/hr Medications to be dosed according to renal function. Avoid contrast if possible ENDOCRINE: Maintain blood glucose between 100-180 at all times. Insulin sliding scale for blood glucose management Hypoglycemia and hyperglycemia protocol in place INFECTIOUS DISEASE: Trend temperature, WBC and procalcitonin level Follow cultures, deescalate antibiotics as soon as possible. Panculture if new onset fever HEMATOLOGY & COAGULATION: Monitor H&H. Keep Hgb > 7 Transfuse 1 unit of PRBC for Hgb < 7 Transfuse 1 pack of platelets of platelets < 20, 000 Watch for any signs and symptoms of bleeding SKIN: Pressure ulcer prevention per facility protocol Specialty mattress as needed ORTHO/REHAB Continue PT/OT PRN: MEDICATIONS Tylenol 650 mg po every 4 hrs for fever zofran 4 mg IV every 6 hrs for n/v Hydralazine 5 mg IV every 4 hrs systolic pressure > 160 bowel regiment: lactulose 20 gm PO BID PRN constipation Supportive measures: Continue GI and DVT prophylaxis All questions answered time spent: > 35 min LINDA RUIZ MD Dec 05, 2024 12:02
--- NOTE | 2024-12-05 12:21 | CONS ---
INFECTIOUS DISEASE CONSULTATION NOTE DATE OF SERVICE: 12/04/2024 REQUESTING PHYSICIAN: Rossy Marley NP REASON FOR CONSULTATION: Cholecystitis. HISTORY OF PRESENT ILLNESS: A 74-year-old male with diabetes mellitus, hypertension, obesity, presented to the hospital with nausea and vomiting and mild body weakness. The patient also complained of fever. T-max in the emergency room was 100.8. Imaging has been done. The patient's gallbladder is dilated_. The patient is scheduled to undergo MRCP which has been done but pending official report. The patient also found positive for Streptococcal pharyngitis. He has been started on vancomycin. Calcitonin is elevated at 11.63. No dysuria, no frequency. PAST MEDICAL HISTORY: * Diabetes mellitus. * Hypertension. * Morbid obesity. * Colonic polyps. PAST SURGICAL HISTORY: * Right colectomy. * Colonoscopy. ALLERGIES: No known drug allergies. MEDICATIONS: Reviewed. SOCIAL HISTORY: No alcohol, tobacco, or illicit drugs. FAMILY HISTORY: Positive for diabetes mellitus. REVIEW OF SYSTEMS: Greater than 10 systems were reviewed and negative other than documented above. PHYSICAL EXAMINATION: VITAL SIGNS: There is no fever. Temperature 98.4, pulse 85, respiratory rate 18, blood pressure . EYES: No icterus. No conjunctival hemorrhage. HENT: No oral thrush seen. Moist oral mucosa. NECK: Supple. No JVD or thyromegaly. LUNGS: Good air entry. No rales, no rhonchi. CARDIOVASCULAR: S1 and S2. Regular. No murmur heard. ABDOMEN: Soft. Bowel sound is present. CENTRAL NERVOUS SYSTEM: Awake, alert, oriented x3. No focal deficits. SKIN: No rashes. LYMPHATIC: No peripheral lymphadenopathy. MUSCULOSKELETAL: No joint swelling. There is mild tenderness. LABORATORY DATA: Procalcitonin 11.63. Troponin 148. Sodium 139, potassium 3.2, BUN 23, creatinine 1.7. WBC 7.9, hemoglobin 14.2, platelets 145. Urinalysis, WBC 50, leukocyte esterase 500. ASSESSMENT: A 74-year-old male presenting with fever, abdominal pain, nausea, vomiting. CURRENT PROBLEMS: Include: . * Gram negative sepsis. * Urinary tract infection. * Possible cholecystitis. * Acute renal failure. * Dehydration. * Hypokalemia. * Hypertension. * Diabetes mellitus. PLAN: * Continue antibiotics. * Continue vancomycin. * Start the patient on cefepime.. * Followup cultures. * Followup MRI and CT results. * Continue pain management. * Continue DVT prophylaxis. * Monitor electrolytes and correct as needed. Thank you for allowing me to participate in the care of this patient. TID: [id number] RECEIPT: [id number] [facility]
--- NOTE | 2024-12-05 12:31 | PN ---
[facility] PROGRESS NOTE Date Patient Seen: Dec 05, 2024 Time of Visit: 12:26 Supervising Physician: Dr Bradford Phillips Primary Care Physician: Attending: Gregorio Hospitalist Team Outpatient Specialists: Inpatient Consults: BIS, critical care team PROBLEM LIST: Sepsis with septic shock, Acute complicated cystitis Acute kidney injury POA Left intrahepatic biliary duct stone Fatty liver per CT abdomen/pelvis Umbilical hernia per CT abdomen/pelvis Uncontrolled diabetes mellitus type 2 with hypoglycemia Generalized body weakness POA Intractable nausea and vomiting POA History of extended right colectomy with ileocolic anastomosis INTERVAL HISTORY: Patient seen and examined, all labs and imaging has been reviewed, patient's CT and ultrasound concerning for cholecystitis, started on vancomycin and Zosyn, MRCP is pending Patient is awake alert and oriented, we have him on low-dose levo, we have started midodrine 10 mg t.i.d. Patient receiving fluids, his bilirubin is 7.2, pro count is 38, initial troponin is 534. We are trending Patient reporting near resolution in nausea. Afebrile Plan: Follow GI recs, MRCP, Weaning pressors GI recommending EGD, drop in hemoglobin from 14-12 Daily labs Trending troponin Telemetry Total critical care time 48 minutes, this time excludes any procedures or educational time. Patient remains on pressor, we are trending his hemoglobin, monitoring for signs of bleeding High-risk for decompensation REVIEW OF SYSTEMS: 12 point ROS reviewed with patient. Pertinent positives mentioned above. Otherwise negative. PHYSICAL EXAM: GENERAL: Alert, weak, awake oriented x 3 HEENT: EOMI, Sclera non icteric, moist mucosa NECK: Supple, no JVD, trachea midline LUNGS: Clear breath sounds bilaterally. No wheezes HEART: Regular rate and rhythm. Normal S1 and S2, without murmurs ABD: Abdomen soft, nontender. Bowel sounds present EXT: No clubbing cyanosis or edema NEURO: Alert and oriented X3, follows commands Vital Signs (last 8hr) Date Time Temp Pulse Resp B/P (MAP) Pulse Ox O2 Delivery O2 Flow Rate FiO2 12/05/24 10:00 84 18 105/44 (64) 97 21 12/05/24 09:45 90 6 99/57 (71) 98 21 12/05/24 09:30 83 16 90/46 (61) 98 21 12/05/24 09:15 87 13 100/50 (67) 99 21 12/05/24 09:00 86 22 104/55 (71) 97 21 12/05/24 08:45 90 17 106/52 (70) 98 21 12/05/24 08:30 93 20 98/55 (69) 98 21 12/05/24 08:15 91 9 99/43 (61) 97 21 12/05/24 08:02 97 Room Air* 0 21 12/05/24 08:00 96 8 101/55 (70) 98 21 12/05/24 08:00 98.1 Room Air 21 12/05/24 07:45 95 6 92/55 (67) 97 12/05/24 07:30 98 18 105/58 (74) 97 12/05/24 07:15 95 20 105/47 (66) 97 12/05/24 07:00 99 21 100/51 (67) 97 21 12/05/24 06:45 98 15 96/48 (64) 97 12/05/24 06:30 99 18 96/49 (65) 97 12/05/24 06:15 101 17 116/53 (74) 97 12/05/24 06:00 103 24 104/54 (71) 96 21 12/05/24 05:45 95 25 105/57 (73) 95 12/05/24 05:30 94 20 111/49 (69) 95 12/05/24 05:15 96 15 110/57 (74) 96 12/05/24 05:00 82 16 111/49 (69) 95 21 12/05/24 04:45 92 15 117/58 (77) 96 12/05/24 04:30 96 18 133/65 (87) 98 LABS: Hematology Labs: Test 12/05/24 05:27 12/04/24 07:14 Range/Units White Blood Count 12.3 H 4.8-10.8 K/uL Red Blood Count 3.80 L 4.50-6.20 MIL/uL Hemoglobin 12.4 L 14.0-18.0 g/dL Hematocrit 34.8 L 42-54 % Mean Corpuscular Volume 91.6 79-99 fL Mean Corpuscular Hemoglobin 32.6 27.0-33.0 pg Mean Corpuscular Hemoglobin Concent 35.6 32.0-36.0 g/dL Red Cell Distribution Width 13.2 11.0-15.5 % Platelet Count 76 #L 130-400 K/uL Mean Platelet Volume 10.4 7.5-10.5 fL Immature Granulocyte % (Auto) 1.7 H 0-1 % Neutrophils (%) (Auto) 90.4 H 40.0-77.0 % Lymphocytes (%) (Auto) 4.5 L 21.0-51.0 % Monocytes (%) (Auto) 2.8 L 3.0-13.0 % Eosinophils (%) (Auto) 0.4 0.0-8.0 % Basophils (%) (Auto) 0.2 0.0-5.0 % Neutrophils # (Auto) 11.1 H 1.8-7.7 K/uL Lymphocytes # (Auto) 0.6 L 1.0-4.8 K/uL Monocytes # (Auto) 0.3 0.1-1.0 K/uL Eosinophils # (Auto) 0.05 0.00-0.70 K/uL Basophils # (Auto) 0.03 0.00-0.20 K/uL Absolute Immature Granulocyte (auto 0.21 0-1 K/uL Nucleated Red Blood Cells 0.0 0.0-0.19 % White Cell Morphology Comment See comments Red Blood Cell Morphology See comments Chemistry Labs: Test 12/05/24 12:11 12/05/24 09:46 12/05/24 05:27 12/04/24 07:14 Range/Units Whole Blood Glucose 98 70-110 MG/DL Lactic Acid Level 2.3 0.8-2.5 mmol/L Sodium Level 144 136-145 mmol/L Potassium Level 4.6 3.5-5.1 mmol/L Chloride Level 111 101-111 mmol/L Carbon Dioxide Level 22 21-32 mmol/L Blood Urea Nitrogen 24 H 7-18 mg/dL Creatinine 1.5 H 0.5-1.3 mg/dL Glomerular Filtration Rate Calc 49 >90 mL/min Random Glucose 102 70-105 mg/dL Hemoglobin A1c 7.3 H 4.0-6.0 % Estimated Average Glucose (eAG) 163 H 70-126 mg/dL Total Calcium 7.9 L 8.5-10.1 mg/dL Magnesium Level 2.10 1.80-2.40 mg/dL Total Bilirubin 7.2 #H 0.2-1.0 mg/dL Direct Bilirubin 6.0 H 0.0-0.3 mg/dL Aspartate Amino Transf (AST/SGOT) 65 H 10-37 U/L Alanine Aminotransferase (ALT/SGPT) 64 # 12-78 U/L Alkaline Phosphatase 108 50-136 U/L Ammonia < 10 L 11-32 umol/L Lactate Dehydrogenase 207 81-234 U/L Total Creatine Kinase 49 21-232 U/L Troponin I High Sensitivity 534 *H 4-75 ng/L B-Type Natriuretic Peptide 412 H 0-100 pg/mL Total Protein 5.9 L 6.0-8.3 g/dL Albumin 2.2 L 3.5-5.0 g/dL Amylase Level 15 #L 25-115 U/L Lipase 25 16-77 U/L Procalcitonin 38.56 H 0.05-0.5 ng/mL Thyroid Stimulating Hormone (TSH) 0.74 0.36-3.74 uIU/mL Free Thyroxine (T4) Direct 1.18 0.76-1.46 ng/dL Free Triiodothyronine (T3) pg/mL 0.95 L 2.18-3.98 pg/mL Triglycerides Level 83 30-200 mg/dL Cholesterol Level 100 <200 mg/dL LDL Cholesterol 72 0-99 mg/dL HDL Cholesterol 23 L 29-71 mg/dL Coagulation Labs: Test 12/04/24 07:14 Range/Units Prothrombin Time 11.8 H 9.6-11.6 SEC Prothromb Time International Ratio 1.13 0.85-1.15 DIAGNOSTICS / RADIOLOGY RESULTS: [ ] PLAN NEURO: Minimize central acting medications as possible. Fall Precautions. Well lighted room through the day and minimize interruptions through the night to prevent acute delirium. PULMONARY: Supplemental 02 as needed Titrate Fio2 to keep Spo2 > or = 90% DuoNebs and CPT as needed IS hourly while awake for pulmonary hygiene Out of bed to chair as tolerated VAP Bundle CARDIOVASCULAR: Follow hemodynamics. Titrate vasopressor to keep MAP >65 or systolic blood pressure >95mmHg GI & NUTRITION: Continue nutritional support Aspirations precautions Prokinetic agents and laxatives as needed KIDNEYS & ELECTROLYTES: Strict monitoring of intake and output Daily weights Avoid nephrotoxic agents Monitor electrolytes and replace as needed Goal urine output of 30mL/hr or 0.5mL/kg/hr ENDOCRINE: Maintain blood glucose between 100-180 at all times. Insulin sliding scale for blood glucose management INFECTIOUS DISEASE: Trend temperature. Galvan-culture if febrile. HEMATOLOGY & COAGULATION: Monitor H&H. Keep Hgb > 7 Transfuse 1 unit of PRBC for Hgb < 7 Transfuse 1 pack of platelets of platelets < 20, 000 Watch for any signs and symptoms of bleeding SKIN: Pressure ulcer prevention per facility protocol Rehab: PT/OT Code Status: Full Resuscitation SOFIA CRUZ Dec 05, 2024 12:31
[2024-12-05] MEDS ORDERED: PHARMACY COMMUNICATION MISC SCH (14:00)
[2024-12-05] MEDS: MEROPENEM 1GM 1 GM VIAL IVPB SCH (14:04)
--- NOTE | 2024-12-05 16:59 | PN ---
This is a 74-year-old male consulted to surgery with concerns of possible cholecystitis Interval history: This 74-year-old male seen in his room resting Patient testing positive for strep HIDA scan and MRCP both negative No abdominal pain reported Patient is scheduled for endoscopy by canceled due to patient's positive strep test Patient is being followed by Cardiology at this time with the elevation in troponins noted Physical exam General: Awake alert and oriented Heart: Regular rate and rhythm} Lungs: Clear to auscultation no distress Abdomen: [Soft, nontender, nondistended Assessment : This is a 74-year-old male with concerns for cholecystitis ruled out with imaging Plan: From surgical standpoint no further intervention planned Patient to continue with current medical management in ICU management Patient is allowed diet when cleared by medical team Doctor Figueroa to be updated in patient's status and surgical team to sign off at this time. Thank you Surgical case has been discussed with my supervising physician in the above plan was formulated and agreed upon We appreciate the hospitalist team for us to participate in patient's care. Greater than 45 minutes of time spent patient, reviewing chart, working on documentation Vitals/Labs Vital Signs Date Time Temp Pulse Resp B/P (MAP) Pulse Ox O2 Delivery O2 Flow Rate FiO2 12/05/24 16:00 98.6 Room Air 21 12/05/24 15:45 115 22 96 12/05/24 12:00 0 Laboratory Tests 12/05/24 05:27 Medications Current Medications Ondansetron HCl 4 mg ONCE ONCE IVP Last administered on 12/04/24at 07:40; Start 12/04/24 at 07:30; Stop 12/04/24 at 07:31; Status DC Lactated Ringer's 1,000 ml BOLUS STAT IV Last administered on 12/04/24at 07:40; Start 12/04/24 at 07:07; Stop 12/04/24 at 07:14; Status DC Acetaminophen 1,000 mg ONCE ONCE PO Last administered on 12/04/24at 08:29; Start 12/04/24 at 08:30; Stop 12/04/24 at 08:31; Status DC Piperacillin Sod/ Tazobactam Sod 3.375 gm ONCE ONCE IV Last administered on 12/04/24at 09:35; Start 12/04/24 at 09:30; Stop 12/04/24 at 09:31; Status DC Sodium Chloride 1,000 ml @ 125 mls/hr ONCE ONCE IV Last administered on 12/04/24at 09:35; Start 12/04/24 at 09:30; Stop 12/04/24 at 17:29; Status DC Insulin Human Regular INSULIN SLIDING SCAL... ACHS SQ; Start 12/04/24 at 11:30; Stop 01/03/25 at 11:29 Dextrose 50 ml AD PRN IV; Start 12/04/24 at 11:00; Stop 01/03/25 at 10:59 Glucagon 1 mg AD PRN IM; Start 12/04/24 at 11:00; Stop 01/03/25 at 10:59 Potassium Chloride 100 ml @ 100 mls/hr AD PRN IV; Start 12/04/24 at 11:00; Stop 01/03/25 at 10:59 Potassium Chloride 10 meq AD PRN PO; Start 12/04/24 at 11:00; Stop 01/03/25 at 10:59 Potassium Chloride 10 meq AD PRN PO; Start 12/04/24 at 11:00; Stop 12/05/24 at 06:30; Status DC Magnesium Sulfate 50 ml @ 0 mls/hr PROTOCOL PRN IV Last administered on 12/04/24at 17:09; Start 12/04/24 at 11:00; Stop 01/03/25 at 10:59 Diphenhydramine HCl 25 mg Q4H PRN PO; Start 12/04/24 at 11:00; Stop 01/03/25 at 10:59 Acetaminophen 650 mg Q6H PRN PO; Start 12/04/24 at 11:00; Stop 01/03/25 at 10:59 Acetaminophen 650 mg Q4H PRN PO; Start 12/04/24 at 11:00; Stop 12/04/24 at 10:57; Status DC Ondansetron HCl 4 mg Q6H PRN IV; Start 12/04/24 at 11:00; Stop 01/03/25 at 10:59 Zolpidem Tartrate 5 mg HS PRN PO; Start 12/04/24 at 11:00; Stop 01/03/25 at 10:59 Al Hydroxide/Mg Hydroxide 30 ml Q6H PRN PO; Start 12/04/24 at 11:00; Stop 01/03/25 at 10:59 Lactulose 20 gm BID PRN PO; Start 12/04/24 at 11:00; Stop 01/03/25 at 10:59 Nitroglycerin 0.4 mg PROTOCOL PRN SL; Start 12/04/24 at 11:00; Stop 01/03/25 at 10:59 Guaifenesin/ Dextromethorphan 10 ml Q4H PRN PO; Start 12/04/24 at 11:00; Stop 01/03/25 at 10:59 Famotidine 20 mg BID PRN IV; Start 12/04/24 at 11:00; Stop 12/04/24 at 10:57; Status DC Heparin Sodium (Porcine) 5,000 unit BID SQ Last administered on 12/04/24at 22:19; Start 12/04/24 at 21:00; Stop 01/03/25 at 20:59 Acetaminophen 650 mg Q6H PRN PO; Start 12/04/24 at 11:00; Stop 01/03/25 at 10:59 Ketorolac Tromethamine 15 mg Q8H PRN IV Last administered on 12/04/24at 22:17; Start 12/04/24 at 11:00; Stop 12/09/24 at 10:59 Morphine Sulfate 1 mg Q4H PRN IVP; Start 12/04/24 at 11:00; Stop 12/11/24 at 10:59 Vancomycin HCl 250 ml @ 125 mls/hr ONCE IV Last administered on 12/04/24at 11:00; Start 12/04/24 at 11:00; Stop 12/04/24 at 12:59; Status DC Piperacillin Sod/ Tazobactam Sod 50 ml @ 12.5 mls/hr Q8H IV Last administered on 12/04/24at 17:09; Start 12/04/24 at 17:30; Stop 12/04/24 at 21:34; Status DC Sodium Chloride 1,000 ml @ 100 mls/hr Q10H IV Last administered on 12/05/24at 12:01; Start 12/04/24 at 11:00; Stop 01/03/25 at 10:59 Hydralazine HCl 10 mg Q6H PRN IV; Start 12/04/24 at 11:00; Stop 12/04/24 at 13:13; Status DC Famotidine 20 mg Q24H IV Last administered on 12/04/24at 22:16; Start 12/04/24 at 21:00; Stop 01/03/25 at 20:59 Vancomycin HCl 250 ml @ 125 mls/hr Q24H IV Last administered on 12/05/24at 11:57; Start 12/05/24 at 11:00; Stop 12/05/24 at 13:42; Status DC Norepinephrine 250 ml @ 0 mls/hr PROTOCOL STAT IV Last administered on 12/04/24at 13:12; Start 12/04/24 at 12:14; Stop 12/04/24 at 12:18; Status DC Gadoterate Meglumine 10 mmol STK-MED ONCE IV; Start 12/04/24 at 12:59; Stop 12/04/24 at 12:59; Status DC Cefepime HCl 1 gm Q8H IVPB Last administered on 12/05/24at 00:15; Start 12/04/24 at 16:00; Stop 12/05/24 at 06:31; Status DC Norepinephrine 250 ml @ 0 mls/hr PROTOCOL IV Last administered on 12/05/24at 14:03; Start 12/04/24 at 17:17; Stop 01/03/25 at 17:16 Potassium Chloride 10 meq AD PRN PO; Start 12/05/24 at 07:00; Stop 01/03/25 at 10:59 Cefepime HCl 1 gm Q12H IVPB; Start 12/05/24 at 12:00; Stop 12/05/24 at 13:42; Status DC Pharmacy Profile Note 1 each ONCE MISC; Start 12/05/24 at 14:00; Stop 12/05/24 at 13:51; Status DC Meropenem 1 gm Q12H IVPB Last administered on 12/05/24at 14:04; Start 12/05/24 at 14:00; Stop 12/15/24 at 13:59 ALAINA VOGEL Jr. Dec 05, 2024 16:59
--- NOTE | 2024-12-05 21:23 | PN ---
INFECTIOUS DISEASE PROGRESS NOTE Date of Service: Dec 05, 2024 SUBJECTIVE: This is a 74-year-old male patient who was admitted for nausea or vomiting and generalized body weakness. Patient is in the ICU and scheduled for EGD for today. No vomiting during our visit today . The preliminary blood cultures is growing Gram-negative rods, a urinalysis was positive and a rapid strep is positive. Patient on renal failure with a BUN of 24 and creatinine of 1.5. No fever reported within the last 48 hours and the WBC trended down to 12.3. We will discontinue cefepime and vancomycin and start patient on Meropenem 1 g IV every 8 hours. We will continue to monitor patient. PHYSICAL EXAM EYES: Anicteric. Pupils equal and reactive. HENT: No oral thrush seen, moist Oral mucosa NECK: Supple, no JVD or thyromegaly. LUNGS: Good air entry. No rales, no rhonchi. CARDIOVASCULAR: S1, S2 regular. No murmur heard. ABDOMEN: Soft and normal bowel sounds. CENTRAL NERVOUS SYSTEM: Awake, alert, oriented x 3. SKIN: No rashes, no swelling. LYMPHATICS: No peripheral lymphadenopathy. MUSCULOSKELETAL: No joint swelling, erythema or tenderness. EXTREMITIES: No cyanosis or clubbing. Generalized weakness. BACK: No deformity, no pressure ulcer. GENITOURINARY: No dysuria or hematuria. Vital Sign (Last 12 Hours) 12/05/24 12/05/24 12/05/24 12/05/24 09:30 09:45 10:00 10:15 Pulse 83 90 84 84 Resp 16 6 18 5 B/P (MAP) 90/46 (61) 99/57 (71) 105/44 (64) 100/54 (69) Pulse Ox 98 98 97 98 FiO2 21 21 21 12/05/24 12/05/24 12/05/24 12/05/24 10:30 10:45 11:00 11:15 Pulse 81 97 82 85 Resp 22 18 18 8 B/P (MAP) 102/45 (64) 109/39 (62) 102/54 (70) 122/64 (83) Pulse Ox 97 99 97 99 FiO2 21 21 21 21 12/05/24 12/05/24 12/05/24 12/05/24 11:30 11:40 11:45 12:00 Pulse 81 80 86 133 Resp 16 12 18 44 B/P (MAP) 111/60 (77) 97/35 (55) 117/59 (78) 102/65 (77) Pulse Ox 100 98 97 89 FiO2 21 12/05/24 12/05/24 12/05/24 12/05/24 12:00 12:02 12:15 12:30 Temp 99.5 Pulse 135 116 Resp 35 34 B/P (MAP) 135/118 (124) 114/46 (68) Pulse Ox 97 93 95 O2 Delivery Room Air* Room Air O2 Flow Rate 0 FiO2 21 12/05/24 12/05/24 12/05/24 12/05/24 12:45 13:00 13:15 13:30 Pulse 109 114 112 110 Resp 28 27 27 B/P (MAP) 111/40 (63) 106/41 (62) 108/42 (64) 95/42 (59) Pulse Ox 93 94 94 94 FiO2 12/05/24 12/05/24 12/05/24 12/05/24 13:45 14:00 14:03 14:15 Pulse 110 108 108 Resp 17 16 27 B/P (MAP) 109/47 (67) 108/41 (63) 95/42 110/53 (72) Pulse Ox 93 95 96 FiO2 12/05/24 12/05/24 12/05/24 12/05/24 14:30 14:45 15:00 15:15 Pulse 109 106 110 107 Resp 22 22 16 28 B/P (MAP) 103/46 (65) 110/46 (67) 111/49 (69) 111/46 (67) Pulse Ox 95 95 96 96 FiO2 21 21 12/05/24 12/05/24 12/05/24 12/05/24 15:30 15:45 16:00 16:00 Temp 98.6 Pulse 111 115 106 Resp 22 14 B/P (MAP) 102/51 (68) 106/55 (72) Pulse Ox 96 96 93 O2 Delivery Room Air FiO2 21 21 21 21 12/05/24 12/05/24 12/05/24 12/05/24 16:00 16:15 16:30 16:45 Pulse 112 94 92 Resp 25 14 B/P (MAP) 134/40 (71) 117/55 (75) 116/41 (66) Pulse Ox 97 96 95 97 O2 Delivery Room Air* O2 Flow Rate 0 FiO2 21 21 21 21 12/05/24 12/05/24 12/05/24 12/05/24 17:00 17:15 17:30 17:40 Pulse 89 101 101 106 Resp 5 32 32 25 B/P (MAP) 119/52 (74) 131/77 (95) 131/77 (95) 142/79 (100) Pulse Ox 96 97 97 96 FiO2 21 21 21 21 12/05/24 12/05/24 12/05/24 12/05/24 17:55 18:00 18:15 18:30 Pulse 100 106 106 106 Resp 26 6 6 29 B/P (MAP) 130/65 (86) 124/43 (70) 124/43 (70) 119/45 (69) Pulse Ox 97 95 95 94 FiO2 21 21 21 21 12/05/24 12/05/24 12/05/24 12/05/24 18:45 19:00 19:22 19:24 Temp 98.8 Pulse 101 104 Resp 26 22 B/P (MAP) 103/43 (63) 119/49 (72) Pulse Ox 93 93 94 O2 Delivery Room Air Room Air* O2 Flow Rate 0 FiO2 21 21 21 21 Intake & Output (last 24hrs) 12/04/24 12/04/24 12/05/24 15:00 23:00 07:00 Intake Total 589.9 ml 821.3 ml Output Total 850 ml Balance 589.9 ml -28.7 ml LABS: Laboratory: Test 12/05/24 20:26 12/05/24 09:46 12/05/24 05:27 12/04/24 14:22 Range/Units Whole Blood Glucose 145 H 70-110 MG/DL Lactic Acid Level 2.3 0.8-2.5 mmol/L White Blood Count 12.3 H 4.8-10.8 K/uL Red Blood Count 3.80 L 4.50-6.20 MIL/uL Hemoglobin 12.4 L 14.0-18.0 g/dL Hematocrit 34.8 L 42-54 % Mean Corpuscular Volume 91.6 79-99 fL Mean Corpuscular Hemoglobin 32.6 27.0-33.0 pg Mean Corpuscular Hemoglobin Concent 35.6 32.0-36.0 g/dL Red Cell Distribution Width 13.2 11.0-15.5 % Platelet Count 76 #L 130-400 K/uL Mean Platelet Volume 10.4 7.5-10.5 fL Immature Granulocyte % (Auto) 1.7 H 0-1 % Neutrophils (%) (Auto) 90.4 H 40.0-77.0 % Lymphocytes (%) (Auto) 4.5 L 21.0-51.0 % Monocytes (%) (Auto) 2.8 L 3.0-13.0 % Eosinophils (%) (Auto) 0.4 0.0-8.0 % Basophils (%) (Auto) 0.2 0.0-5.0 % Neutrophils # (Auto) 11.1 H 1.8-7.7 K/uL Lymphocytes # (Auto) 0.6 L 1.0-4.8 K/uL Monocytes # (Auto) 0.3 0.1-1.0 K/uL Eosinophils # (Auto) 0.05 0.00-0.70 K/uL Basophils # (Auto) 0.03 0.00-0.20 K/uL Absolute Immature Granulocyte (auto 0.21 0-1 K/uL Nucleated Red Blood Cells 0.0 0.0-0.19 % Sodium Level 144 136-145 mmol/L Potassium Level 4.6 3.5-5.1 mmol/L Chloride Level 111 101-111 mmol/L Carbon Dioxide Level 22 21-32 mmol/L Blood Urea Nitrogen 24 H 7-18 mg/dL Creatinine 1.5 H 0.5-1.3 mg/dL Glomerular Filtration Rate Calc 49 >90 mL/min Random Glucose 102 70-105 mg/dL Hemoglobin A1c 7.3 H 4.0-6.0 % Estimated Average Glucose (eAG) 163 H 70-126 mg/dL Total Calcium 7.9 L 8.5-10.1 mg/dL Magnesium Level 2.10 1.80-2.40 mg/dL Total Bilirubin 7.2 #H 0.2-1.0 mg/dL Direct Bilirubin 6.0 H 0.0-0.3 mg/dL Aspartate Amino Transf (AST/SGOT) 65 H 10-37 U/L Alanine Aminotransferase (ALT/SGPT) 64 # 12-78 U/L Alkaline Phosphatase 108 50-136 U/L Ammonia < 10 L 11-32 umol/L Lactate Dehydrogenase 207 81-234 U/L Total Creatine Kinase 49 21-232 U/L Troponin I High Sensitivity 534 *H 4-75 ng/L B-Type Natriuretic Peptide 412 H 0-100 pg/mL Total Protein 5.9 L 6.0-8.3 g/dL Albumin 2.2 L 3.5-5.0 g/dL Amylase Level 15 #L 25-115 U/L Lipase 25 16-77 U/L Procalcitonin 38.56 H 0.05-0.5 ng/mL Thyroid Stimulating Hormone (TSH) 0.74 0.36-3.74 uIU/mL Free Thyroxine (T4) Direct 1.18 0.76-1.46 ng/dL Free Triiodothyronine (T3) pg/mL 0.95 L 2.18-3.98 pg/mL Stool Occult Blood POSITIVE H NEGATIVE Test 12/04/24 14:10 12/04/24 13:30 12/04/24 13:04 12/04/24 11:25 Range/Units Group A Streptococcus Rapid positive *A NEGATIVE SARS-CoV-2 Antigen (Rapid) PRESUMPTIVE NEGATIVE NEGATIVE Blood Gas Specimen Type Arterial Arterial Blood pH 7.453 H 7.350-7.450 Arterial Blood Partial Pressure CO2 26 L 35-48 mmHg Arterial Blood Partial Pressure O2 82.3 L 83.0-108.0 mmHg Arterial Blood HCO3 17.6 L 21.0-28.0 mmol/L Arterial Blood Oxygen Saturation 96.8 94.0-98.0 % Arterial Blood Base Excess -4.5 L -2.0-3.0 mmol/L Blood Gas Temperature 37.0 35.5-37.0 CELSIUS Blood Gas Vent Mode ROOM AIR ROOM AIR FiO2 21.0 % Blood Gas Specimen Comment RR VASILE Influenza Type A Antigen Negative For Type A NEGATIVE Influenza Type B Antigen Negative For Type B NEGATIVE Test 12/04/24 08:30 12/04/24 07:14 Range/Units Urine Color BROWN YELLOW Urine Appearance CLOUDY H CLEAR Urine pH 5.5 5.0-8.0 Urine Specific [place] 1.025 1.001-1.031 Urine Protein 50 H NEGATIVE mg/dL Urine Glucose (UA) 30 H NEGATIVE mg/dL Urine Ketones NEGATIVE NEGATIVE mg/dL Urine Occult Blood +- (TRACE) H NEGATIVE Urine Nitrate NEGATIVE NEGATIVE Urine Bilirubin 1 H NEGATIVE mg/dL Urine Urobilinogen 12 H 0.2-1.0 mg/dL Urine Leukocyte Esterase 500 H NEGATIVE [place]/uL Urine RBC 2-5 H 0-1 /HPF Urine WBC 26-50 H 0-1 /HPF Urine WBC Clumps (Auto) RARE 0-1 /HPF Urine Squamous Epithelial Cells MANY 0-2 /HPF Urine Non-Squamous Epithelial Cells 3 0-2 /HPF Urine Bacteria RARE None Seen /HPF Urine Cellular Casts (Auto) 6-10 H None Seen /LPF Urine Opiates Screen NEGATIVE NEGATIVE Urine Barbiturates Screen NEGATIVE NEGATIVE Urine Phencyclidine Screen NEGATIVE NEGATIVE Urine Amphetamines Screen NEGATIVE NEGATIVE Urine Benzodiazepines Screen NEGATIVE NEGATIVE Urine Cocaine Screen NEGATIVE NEGATIVE Urine Marijuana (THC) Screen NEGATIVE NEGATIVE White Cell Morphology Comment See comments Red Blood Cell Morphology See comments Prothrombin Time 11.8 H 9.6-11.6 SEC Prothromb Time International Ratio 1.13 0.85-1.15 Triglycerides Level 83 30-200 mg/dL Cholesterol Level 100 <200 mg/dL LDL Cholesterol 72 0-99 mg/dL HDL Cholesterol 23 L 29-71 mg/dL DIAGNOSTICS / RADIOLOGY: PATIENT: OSITO MONTEZ ACCT: [id number] LOC: [facility] U: [id number] AGE/SX: 74/M ROOM: [facility] RE12/04/[address]: LINDA RUIZ MD : 1950 BED: 1 DIS: STATUS: ADM IN TLOC: SPEC: [id number] LADARIUS: 12/04/24 STATUS: RES REQ: [id number] RECD: 12/04/[address]: LEIGH ANN KYLE APRN SOURCE: BLOOD ENTR: 12/04/24-[address]: WEI MCCLELLAND MD SPDESC: SUSIE ARNDT MD SELF,REFERRAL ORDERED: BLOOD CULTURE COMMENTS: What is the Source? BLOOD Procedure Result María Date-Time BLOOD CULT Preliminary 12/05/24-1150 GRAM STAIN: GRAM NEGATIVE RODS 2 OF 2 BLOOD CULTURES AEROBIC BOTTLES ONLY NOTIFIED NURSE FRANCISCO WANG AT 1018 ON 12/05/24 BY SANTIAGO CULTURE REPORT: IDENTIFICATION In Progress. SEE [id number] FOR CULTURE RESULTS PATIENT: OSITO MONTEZ ACCT: [id number] LOC: [facility] U: [id number] AGE/SX: 74/M ROOM: 215 RE12/04/[address]: LINDA RUIZ MD : 1950 BED: 1 DIS: STATUS: ADM IN TLOC: SPEC: [id number] LADARIUS: 12/04/24 STATUS: RES REQ: [id number] RECD: 12/05/[address]: JC DIALLO MD SOURCE: [facility] ENTR: 12/05/[address]: SUSIE ARNDT MD SPDESC: CLEAN CAT SELF,REFERRAL ORDERED: AERO ID & SENS Procedure Result María Date-Time AEROBIC ID & SENSITIVITIES Preliminary 12/05/24-1243 MRL COLONY DESCRIPTION: DAY 1: COLONY COUNT: 10,000 - 20,000 CFU/ML GRAM NEGATIVE RODS IDENTIFICATION AND SENSITIVITY TO FOLLOW ASSESSMENT: Gram-negative bacteremia. Urinary tract infection. Sepsis. Streptococcus pharyngitis. Possible cholecystitis. Leukocytosis. Thrombocytopenia. Acute renal failure. Dehydration. Diabetes mellitus. PLAN: Discontinue cefepime. Discontinue vancomycin. Start Meropenem IV every 8 hours. Continue GI prophylaxis. Continue vasopressor support. Continue antidiabetics. Avoid nephrotoxic medications. We will follow up on the final culture results. This case was reviewed and discussed with my supervising physician Dr. Espinosa and the above assessment and plan was formulated and agreed upon. ATTESTATION BY PHYSICIAN I have seen and examined the patient. I reviewed the documentation, medical decision making, and treatment plan as noted by the mid-level provider above. I agree with the findings and plan of care. MAURICIO ESPINOSA MD, [facility]TA [facility] Dec 05, 2024 21:23
--- NOTE | 2024-12-05 23:48 | NUR ---
2124 - pt converted to a. flutter, ekg obtained at this time. 2146 - paged [facility] for change in pt condition 2214- second paged to [facility] for change in pt condition 2231 - notified danny maldonado np of pt new onset of a flutter in the 100-110s. orders to consult firer kiln.
--- NOTE | 2024-12-05 23:48 | NUR ---
report obtained by camryn zelaya
[2024-12-06] VITALS (45 sets, daily range): BP systolic 92–127; BP diastolic 39–66; PULSE 75–94; RESP 5–29; TEMP 97.6–98.7; O2SAT 94–97
[2024-12-06 04:19] LABS: NUCLEATED RED BLOOD CELLS 0.0 % (0.0-0.19); PLATELET COUNT (AUTO) 52 K/uL (130-400); RED BLOOD CELL COUNT(AUTO) 3.40 MIL/uL (4.50-6.20); RED CELL DISTRIBUTION WIDTH 13.3 % (11.0-15.5); WHITE BLOOD COUNT (AUTO) 9.2 K/uL (4.8-10.8)
[2024-12-06 04:52] LABS: ASPARTATE AMINOTRANSFERASE 65.0 U/L (10-37); CREATININE 1.0 mg/dL (0.5-1.3); GLOMERULAR FILTR. RATE CALC 79.0 mL/min (>90); GLUCOSE,RANDOM 157.0 mg/dL (70-105); SODIUM SERUM 140.0 mmol/L (136-145); TOTAL PROTEIN, SERUM 5.3 g/dL (6.0-8.3); UREA NITROGEN, BLOOD 26.0 mg/dL (7-18)
--- NOTE | 2024-12-06 05:19 | EKG ---
[facility] Test Date: 2024-12-05 Test Time: 21:45:19 Pat Name: OSITO MONTEZ Department: [facility] Room: 215 1 Gender: M Low Vision Therapist: FRANKIE ALVARENGA : 1950 Requested By: KACY INGRAM Order Number: [id number] Reading MD: Magno Gottlieb Measurements Intervals [place] Rate: 113 P: 0 DC: 0 QRS: 45 QRSD: 84 T: 34 QT: 370 QTc: 507 Interpretive Statements Atrial flutter with variable AV block Compared to ECG 12/04/2024 07:05:16 Sinus tachycardia no longer present Ventricular premature complex(es) no longer present Electronically Signed On 12-06-2024 12:00:49 CDT by Magno Gottlieb Please click the below link to view image of tracing.
--- NOTE | 2024-12-06 11:10 | PN ---
[facility] PROGRESS NOTE Date of Service: Dec 06, 2024 Time of Service: 11:09 SUBJECTIVE: 12/05 the patient has been seen and examined at bedside, case discussed with the RN, patient admitted to the ICU, remains on Levophed for blood pressure support, BP 105/44, afebrile, saturating normal on room air. During my visit the patient is alert and oriented x3, he denies chest pain, no shortness a breath, no nausea, no vomiting, no abdominal pain, no diarrhea. WBC slowly trending down, today 12.3, hemoglobin 12.4, hematocrit 34.8, with a platelet count of 76. Stool occult blood positive. Group A strep a rapid test is positive. Total bilirubin of 7.2. MRCP showing cholelithiasis without acute cholecystitis, no biliary obstruction, incidental pancreatic divisum, he per cirrhosis, hepatic steatosis, mild splenomegaly, left renal cortical cyst. HIDA scan no acute cholecystitis. Echocardiogram showing LVEF 55%, left ventricle diastolic function is normal, the right ventricular systolic function is normal, the atria are normal in size, no hemodynamically significant valvular abnormalities, how pericardial effusion. Blood culture positive for Gram-negative rods 2/2 blood sets. Urine culture [id number] CFU, identification and susceptibilities in process. Patient evaluated by GI, recommended EGD for further evaluation. Recommended also colonoscopy. 12/06 patient is seen and examined at bedside, case discussed with the RN, no acute events overnight, the patient off Levophed, hemodynamically stable, afebrile, saturating normal on room air. Results of urine culture positive for E coli. Blood culture positive for Gram-negative rods, pending final identification. Patient to continue broad-spectrum IV antibiotics. HIDA scan no acute cholecystitis. Echocardiogram showing LVEF 55%, left ventricle diastolic function is normal, the right ventricular systolic function is normal, the atria are normal in size, no hemodynamically significant valvular abnormalities, how pericardial effusion. Blood culture positive for Gram-negative rods 2/2 blood sets. Urine culture [id number] CFU, identification and susceptibilities in process. Patient evaluated by GI, recommended EGD for further evaluation. Recommended also colonoscopy. Patient to be downgraded to PCU. REVIEW OF SYSTEMS CONSTITUTIONAL: Denies fevers, chills, or night sweats. No unintentional weight loss reported. Complains of generalized body weakness NEUROLOGICAL: Denies headache, amaurosis fugax, motor weakness, sensory deficit, vertigo/spinning sensation, gait abnormalities, or tremors. ENT: No hearing loss, otalgia, otorrhea, rhinitis, rhinorrhea, hoarseness, or sore throat. CARDIOVASCULAR: Denies any exertional angina, dyspnea on exertion, orthopnea, paroxysmal nocturnal dyspnea, palpitations, life-threatening arrhythmias, claudication. PULMONARY: Denies any shortness of breath, cough, phlegm/sputum, hemoptysis, pleuritic chest pain. SLEEP: Denies morning headaches, daytime somnolence or napping. Denies difficul ty falling asleep, staying asleep, waking from sleep. Denies knowledge of snoring. GASTROINTESTINAL: Denies any type of dysphagia to either liquids or solids. Denies , pyrosis, early satiety, abdominal pain, diarrhea, constipation, or changes in stool consistency or caliber. Denies coffee-ground emesis, hematemesis, hematochezia, or melanotic stools. Complains of nausea and vomiting GENITOURINARY: Denies frequency, urgency, nocturia, hematuria or incontinence (Storage/Irritative symptoms.) Low urinary stream, straining to void, urinary intermittency or hesitancy, splitting of the voiding stream, terminal dribbling. ENDOCRINOLOGIC: Denies polyuria, polydipsia, polyphagia or heat/cold intolerances. HEMATOLOGIC: Denies thrombophilia/previous clots, or coagulopathy/bleeding disorders. ONCOLOGIC: Denies personal history of malignancy. DERMATOLOGIC: Denies rashes or pruritus. PSYCHIATRIC: Denies any suicidal or homicidal ideation. Denies hallucinations. PHYSICAL EXAM GENERAL APPEARANCE: The patient is awake, alert, and oriented, in no acute cardiopulmonary distress. NEUROLOGICAL: Cranial nerves II-XII grossly intact. Motor is 5/5 in bilateral upper and lower extremities proximal to distal. No sensory deficits. HEENT: Face is symmetric. Pupils are equal and reactive. Extraocular movements are intact. NECK: Supple. No JVD. No thyromegaly. No submental, submandibular, pre- /postauricular, occipital or supraclavicular lymphadenopathy. CHEST: Normal chest expansion. No Telemetry. LUNGS: Absence of any rales, rhonchi or any wheezing. CARDIOVASCULAR: Regular. S1 and S2 normal. No appreciable rubs, murmurs or gallops. ABDOMEN: Soft, nontender, and nondistended. There is no rebound, voluntary guarding, or rigidity. : Deferred. No Mariano. EXTREMITIES: Non-edematous and not cyanotic. No clubbing. Good capillary refill. SKIN: No skin breakdown. Vital Signs (last 8hr) Date Time Temp Pulse Resp B/P (MAP) Pulse Ox O2 Delivery O2 Flow Rate FiO2 12/06/24 06:10 85 29 110/52 95 Room Air 12/06/24 06:00 89 18 93 12/06/24 05:55 86 18 104/51 94 Room Air 12/06/24 05:40 87 21 115/60 92 Room Air 12/06/24 05:30 84 9 92 Room Air 12/06/24 05:25 90 16 103/56 94 Room Air 12/06/24 05:10 87 8 114/56 93 Room Air 12/06/24 05:00 86 12 93 12/06/24 04:55 89 8 99/45 94 Room Air 12/06/24 04:40 88 11 110/57 97 Room Air 12/06/24 04:30 84 5 95 12/06/24 04:00 80 94 Room Air 12/06/24 04:00 95 Room Air* 0 21 12/06/24 03:55 81 6 105/47 94 Room Air 12/06/24 03:30 89 19 95 12/06/24 03:25 91 17 100/53 94 Room Air 12/06/24 03:10 92 17 110/51 94 LABS: Laboratory: Test 12/06/24 05:45 12/06/24 03:52 12/05/24 09:46 12/05/24 05:27 Range/Units Whole Blood Glucose 145 H 70-110 MG/DL White Blood Count 9.2 # 4.8-10.8 K/uL Red Blood Count 3.40 L 4.50-6.20 MIL/uL Hemoglobin 11.1 L 14.0-18.0 g/dL Hematocrit 31.2 L 42-54 % Mean Corpuscular Volume 91.8 79-99 fL Mean Corpuscular Hemoglobin 32.6 27.0-33.0 pg Mean Corpuscular Hemoglobin Concent 35.6 32.0-36.0 g/dL Red Cell Distribution Width 13.3 11.0-15.5 % Platelet Count 52 #L 130-400 K/uL Mean Platelet Volume 10.8 H 7.5-10.5 fL Nucleated Red Blood Cells 0.0 0.0-0.19 % Platelet Morphology Comment See comments Sodium Level 140 136-145 mmol/L Potassium Level 3.3 L 3.5-5.1 mmol/L Chloride Level 111 101-111 mmol/L Carbon Dioxide Level 20 L 21-32 mmol/L Blood Urea Nitrogen 26 H 7-18 mg/dL Creatinine 1.0 0.5-1.3 mg/dL Glomerular Filtration Rate Calc 79 >90 mL/min Random Glucose 157 #H 70-105 mg/dL Total Calcium 7.6 L 8.5-10.1 mg/dL Magnesium Level 2.20 1.80-2.40 mg/dL Total Bilirubin 4.7 #H 0.2-1.0 mg/dL Aspartate Amino Transf (AST/SGOT) 65 H 10-37 U/L Alanine Aminotransferase (ALT/SGPT) 47 # 12-78 U/L Alkaline Phosphatase 92 50-136 U/L Total Protein 5.3 L 6.0-8.3 g/dL Albumin 1.8 L 3.5-5.0 g/dL Lactic Acid Level 2.3 0.8-2.5 mmol/L Immature Granulocyte % (Auto) 1.7 H 0-1 % Neutrophils (%) (Auto) 90.4 H 40.0-77.0 % Lymphocytes (%) (Auto) 4.5 L 21.0-51.0 % Monocytes (%) (Auto) 2.8 L 3.0-13.0 % Eosinophils (%) (Auto) 0.4 0.0-8.0 % Basophils (%) (Auto) 0.2 0.0-5.0 % Neutrophils # (Auto) 11.1 H 1.8-7.7 K/uL Lymphocytes # (Auto) 0.6 L 1.0-4.8 K/uL Monocytes # (Auto) 0.3 0.1-1.0 K/uL Eosinophils # (Auto) 0.05 0.00-0.70 K/uL Basophils # (Auto) 0.03 0.00-0.20 K/uL Absolute Immature Granulocyte (auto 0.21 0-1 K/uL Hemoglobin A1c 7.3 H 4.0-6.0 % Estimated Average Glucose (eAG) 163 H 70-126 mg/dL Direct Bilirubin 6.0 H 0.0-0.3 mg/dL Ammonia < 10 L 11-32 umol/L Lactate Dehydrogenase 207 81-234 U/L Total Creatine Kinase 49 21-232 U/L Troponin I High Sensitivity 534 *H 4-75 ng/L B-Type Natriuretic Peptide 412 H 0-100 pg/mL Amylase Level 15 #L 25-115 U/L Lipase 25 16-77 U/L Procalcitonin 38.56 H 0.05-0.5 ng/mL Thyroid Stimulating Hormone (TSH) 0.74 0.36-3.74 uIU/mL Free Thyroxine (T4) Direct 1.18 0.76-1.46 ng/dL Free Triiodothyronine (T3) pg/mL 0.95 L 2.18-3.98 pg/mL Test 12/04/24 14:22 12/04/24 14:10 12/04/24 13:30 12/04/24 13:04 Range/Units Stool Occult Blood POSITIVE H NEGATIVE Group A Streptococcus Rapid positive *A NEGATIVE SARS-CoV-2 Antigen (Rapid) PRESUMPTIVE NEGATIVE NEGATIVE Blood Gas Specimen Type Arterial Arterial Blood pH 7.453 H 7.350-7.450 Arterial Blood Partial Pressure CO2 26 L 35-48 mmHg Arterial Blood Partial Pressure O2 82.3 L 83.0-108.0 mmHg Arterial Blood HCO3 17.6 L 21.0-28.0 mmol/L Arterial Blood Oxygen Saturation 96.8 94.0-98.0 % Arterial Blood Base Excess -4.5 L -2.0-3.0 mmol/L Blood Gas Temperature 37.0 35.5-37.0 CELSIUS Blood Gas Vent Mode ROOM AIR ROOM AIR FiO2 21.0 % Blood Gas Specimen Comment RR VASILE Test 12/04/24 11:25 Range/Units Influenza Type A Antigen Negative For Type A NEGATIVE Influenza Type B Antigen Negative For Type B NEGATIVE Current Medications Medications (Trade) Dose Ordered Sig/Panchito Route PRN Reason Start Time Stop Time Status Last Admin Dose Admin Acetaminophen (TYLenol 325MG TAB) 650 mg Q4H PRN PO MILD PAIN (1-3) 12/04/24 11:00 12/04/24 10:57 DC Acetaminophen (TYLenol 325MG TAB) 650 mg Q6H PRN PO MILD PAIN (1-3) 12/04/24 11:00 01/03/25 10:59 Acetaminophen (TYLenol 325MG TAB) 650 mg Q6H PRN PO TEMPERATURE GREATER THAN 101.5 12/04/24 11:00 01/03/25 10:59 Al Hydroxide/Mg Hydroxide (MAALox PLUS 30ML) 30 ml Q6H PRN PO INDIGESTION 12/04/24 11:00 01/03/25 10:59 Cefepime HCl (MAXipime 1 GM vial) 1 gm Q12H IVPB 12/05/24 12:00 12/05/24 13:42 DC Cefepime HCl (MAXipime 1 GM vial) 1 gm Q8H IVPB 12/04/24 16:00 12/05/24 06:31 DC 12/05/24 00:15 1 GM Dextrose (D50w) 50 ml AD PRN IV HYPOGLYCEMIA PROTOCOL 12/04/24 11:00 01/03/25 10:59 Diphenhydramine HCl (BENAdryl CAP) 25 mg Q4H PRN PO MILD ITCHING/RASH 12/04/24 11:00 01/03/25 10:59 Famotidine (Pepcid 20mg Vial) 20 mg BID PRN IV NAUSEA/VOMITING 12/04/24 11:00 12/04/24 10:57 DC Famotidine (Pepcid 20mg Vial) 20 mg Q24H IV 12/04/24 21:00 01/03/25 20:59 12/05/24 20:28 20 MG Glucagon (Glucagon 1mg Kit) 1 mg AD PRN IM HYPOGLYCEMIA PROTOCOL 12/04/24 11:00 01/03/25 10:59 Guaifenesin/ Dextromethorphan (RobiTUSSin DM 200/20MG 10ML) 10 ml Q4H PRN PO COUGH 12/04/24 11:00 01/03/25 10:59 Heparin Sodium (Porcine) (HEParin 5,000 UNIT VIAL) 5,000 unit BID SQ 12/04/24 21:00 12/06/24 08:45 DC 12/04/24 22:19 5,000 UNIT Hydralazine HCl (APRESOLine 20MG INJ) 10 mg Q6H PRN IV For:SBP above 160;DBP above 90 12/04/24 11:00 12/04/24 13:13 DC Insulin Human Regular (humuLIN R 100 UNIT/ML 3ML) INSULIN SLIDING SCAL... ACHS SQ 12/04/24 11:30 01/03/25 11:29 Ketorolac Tromethamine (toRADol) 15 mg Q8H PRN IV MODERATE PAIN (4-6) 12/04/24 11:00 12/09/24 10:59 12/04/24 22:17 15 MG Lactated Ringer's (Lactated Ringers 1000ml) 1,000 ml BOLUS STAT IV 12/04/24 07:07 12/04/24 07:14 DC 12/04/24 07:40 1,000 ML Lactulose (Constulose 20gm/ 30ml Udcup) 20 gm BID PRN PO CONSTIPATION 12/04/24 11:00 01/03/25 10:59 Magnesium Sulfate 50 ml @ 0 mls/hr PROTOCOL PRN IV OTHER [SEE ORDER COMMENTS] 12/04/24 11:00 01/03/25 10:59 12/04/24 17:09 50 MLS/HR Meropenem (Merrem 1gm) 1 gm Q12H IVPB 12/05/24 14:00 12/15/24 13:59 12/06/24 02:39 1 GM Morphine Sulfate (morPHINE 4MG SYG) 1 mg Q4H PRN IVP SEVERE PAIN (7-10) 12/04/24 11:00 12/11/24 10:59 Nitroglycerin (Nitrostat) 0.4 mg PROTOCOL PRN SL CHEST PAIN 12/04/24 11:00 01/03/25 10:59 Norepinephrine 250 ml @ 0 mls/hr PROTOCOL IV 12/04/24 17:17 01/03/25 17:16 12/05/24 14:03 3.09 MLS/HR Norepinephrine 250 ml @ 0 mls/hr PROTOCOL STAT IV 12/04/24 12:14 12/04/24 12:18 DC 12/04/24 13:12 0.1 MLS/HR Ondansetron HCl (zoFRAN 4MG INJ) 4 mg Q6H PRN IV NAUSEA/VOMITING 12/04/24 11:00 01/03/25 10:59 Pharmacy Profile Note (Pharmacy Communication) 1 each ONCE MISC 12/05/24 14:00 12/05/24 13:51 DC Piperacillin Sod/ Tazobactam Sod 50 ml @ 12.5 mls/hr Q8H IV 12/04/24 17:30 12/04/24 21:34 DC 12/04/24 17:09 12.5 MLS/HR Potassium Chloride 100 ml @ 100 mls/hr AD PRN IV POTASSIUM PROTOCOL 12/04/24 11:00 01/03/25 10:59 Potassium Chloride (K-Dur 10meq Sr Tab) 10 meq AD PRN PO POTASSIUM PROTOCOL 12/05/24 07:00 01/03/25 10:59 Potassium Chloride (K-Dur/Klor-Con 20meq) 10 meq AD PRN PO POTASSIUM PROTOCOL 12/04/24 11:00 12/05/24 06:30 DC Potassium Chloride (KCl 10% Elixir 20meq/15ml) 10 meq AD PRN PO POTASSIUM PROTOCOL 12/04/24 11:00 01/03/25 10:59 Sodium Chloride 1,000 ml @ 100 mls/hr Q10H IV 12/04/24 11:00 01/03/25 10:59 12/06/24 02:46 100 MLS/HR Vancomycin HCl 250 ml @ 125 mls/hr ONCE IV 12/04/24 11:00 12/04/24 12:59 DC 12/04/24 11:00 125 MLS/HR Vancomycin HCl 250 ml @ 125 mls/hr Q24H IV 12/05/24 11:00 12/05/24 13:42 DC 12/05/24 11:57 125 MLS/HR Zolpidem Tartrate (AmbIEN) 5 mg HS PRN PO INSOMNIA 12/04/24 11:00 01/03/25 10:59 DIAGNOSTICS / RADIOLOGY: [ ] ASSESSMENT: Septic shock, POA Gram-negative bacteremia, POA UTI, POA Generalized body weakness POA Intractable nausea and vomiting POA Acute kidney injury POA Acute dehydration POA Right flank pain POA Left intrahepatic biliary duct measuring [address] ultrasound abdomen POA Cholelithiasis per ultrasound abdomen POA Fatty liver per CT abdomen/pelvis POA Umbilical hernia per CT abdomen/pelvis POA Moderate degenerative disc disease of the spine per CT abdomen/pelvis POA Uncontrolled diabetes mellitus type 2 with hypoglycemia POA Hypotension POA Acute complicated cystitis POA Acute multifactorial anemia POA Hyperlipidemia POA Obesity POA History of polyp removal History of extended right colectomy with ileocolic anastomosis PLAN: patient is seen and examined at bedside, case discussed with the RN, no acute events overnight, the patient off Levophed, hemodynamically stable, afebrile, saturating normal on room air. Results of urine culture positive for E coli. Blood culture positive for Gram-negative rods, pending final identification. Patient to continue broad-spectrum IV antibiotics. HIDA scan no acute cholecystitis. Echocardiogram showing LVEF 55%, left ventricle diastolic function is normal, the right ventricular systolic function is normal, the atria are normal in size, no hemodynamically significant valvular abnormalities, how pericardial effusion. Blood culture positive for Gram-negative rods 2/2 blood sets. Urine culture [id number] CFU, identification and susceptibilities in process. Patient evaluated by GI, recommended EGD for further evaluation. Recommended also colonoscopy. Patient to be downgraded to PCU. NEURO: Minimize central acting medications as possible. Fall Precautions. Well lighted room through the day and minimize interruptions through the night to prevent acute delirium. PULMONARY: Supplemental 02 as needed BiPAP as necessary, for respiratory distress Titrate Fio2 to keep Spo2 > or = 90% DuoNebs and CPT as needed IS hourly while awake for pulmonary hygiene prn Out of bed to chair as tolerated Maintain aspiration precautions at all times CARDIOVASCULAR: Follow hemodynamics. Vital signs per facility protocol GI & NUTRITION: Continue nutritional support Aspirations precautions Prokinetic agents and laxatives as needed KIDNEYS & ELECTROLYTES: Strict monitoring of intake and output Daily weights Avoid nephrotoxic agents Monitor electrolytes and replace as needed Goal urine output of 30mL/hr or 0.5mL/kg/hr Medications to be dosed according to renal function. Avoid contrast if possible ENDOCRINE: Maintain blood glucose between 100-180 at all times. Insulin sliding scale for blood glucose management Hypoglycemia and hyperglycemia protocol in place INFECTIOUS DISEASE: Trend temperature, WBC and procalcitonin level Follow cultures, deescalate antibiotics as soon as possible. Panculture if new onset fever HEMATOLOGY & COAGULATION: Monitor H&H. Keep Hgb > 7 Transfuse 1 unit of PRBC for Hgb < 7 Transfuse 1 pack of platelets of platelets < 20, 000 Watch for any signs and symptoms of bleeding SKIN: Pressure ulcer prevention per facility protocol Specialty mattress as needed ORTHO/REHAB Continue PT/OT PRN: MEDICATIONS Tylenol 650 mg po every 4 hrs for fever zofran 4 mg IV every 6 hrs for n/v Hydralazine 5 mg IV every 4 hrs systolic pressure > 160 bowel regiment: lactulose 20 gm PO BID PRN constipation Supportive measures: Continue GI and DVT prophylaxis All questions answered time spent: > 35 min LINDA RUIZ MD Dec 06, 2024 11:10
[2024-12-06] MEDS: PoTASSium chl 10% ELIXIR 20MEQ 20 MEQ/15 ML UDCUP PO PRN (11:26)
--- NOTE | 2024-12-06 11:40 | NUR ---
Hand off report given via telephone to COLETTE Higgins in med surg. Patient being transferred to [facility] as downgrade for Med Tele. All questions answered for Gisela. Made aware of pending 3rd dose of potassium protocol. patient stable at time of transfer, accompanied by RN and his family.
--- NOTE | 2024-12-06 12:00 | PN ---
[facility] PROGRESS NOTE Date Patient Seen: Dec 06, 2024 Time of Visit: 11:57 Supervising Physician: Dr Bradfodr Phillips Primary Care Physician: Attending: Gregorio Hospitalist Team Outpatient Specialists: Inpatient Consults: BIS, critical care team PROBLEM LIST: Sepsis with septic shock, Acute complicated cystitis Thrombocytopenia Strep throat Acute kidney injury POA Left intrahepatic biliary duct stone Fatty liver per CT abdomen/pelvis Umbilical hernia per CT abdomen/pelvis Uncontrolled diabetes mellitus type 2 with hypoglycemia Generalized body weakness POA Intractable nausea and vomiting POA History of extended right colectomy with ileocolic anastomosis INTERVAL HISTORY: Patient seen and examined, all labs and imaging has been reviewed, patient's EGD was held, he was on low-dose levo and screening revealed positive strep throat. Currently on antibiotics, this morning he is off any pressors His hemoglobin is 11.1, his platelets are down to 52. Nursing reports no acute events overnight, he is afebrile. No obvious signs of bleeding Good saturations on nasal cannula 2 L Vitals are stable Awake alert and oriented Plan: Follow GI recs, possible EGD on Sunday Continuing monitor for signs of bleeding, trend hemoglobin, transfuse if needed Daily labs Telemetry Follow Hematology recommendations, follow platelets and monitoring for bleeding Total care time 46 minutes minutes, this time excludes any procedures or educational time. Patient remains on pressor, we are trending his hemoglobin, monitoring for signs of bleeding REVIEW OF SYSTEMS: 12 point ROS reviewed with patient. Pertinent positives mentioned above. Otherwise negative. PHYSICAL EXAM: GENERAL: Alert, weak, awake oriented x 3 HEENT: EOMI, Sclera non icteric, moist mucosa NECK: Supple, no JVD, trachea midline LUNGS: Clear breath sounds bilaterally. No wheezes HEART: Regular rate and rhythm. Normal S1 and S2, without murmurs ABD: Abdomen soft, nontender. Bowel sounds present EXT: No clubbing cyanosis or edema NEURO: Alert and oriented X3, follows commands Vital Signs (last 8hr) Date Time Temp Pulse Resp B/P (MAP) Pulse Ox O2 Delivery O2 Flow Rate FiO2 12/06/24 11:00 93 16 122/57 97 Room Air 12/06/24 10:00 78 17 118/66 96 Room Air 12/06/24 09:00 77 20 127/62 98 Room Air 12/06/24 08:00 97 Room Air* 0 21 12/06/24 08:00 98.1 79 23 111/64 97 Room Air 12/06/24 07:00 94 17 116/59 94 Room Air 12/06/24 06:10 85 29 110/52 95 Room Air 12/06/24 06:00 89 18 93 12/06/24 05:55 86 18 104/51 94 Room Air 12/06/24 05:40 87 21 115/60 92 Room Air 12/06/24 05:30 84 9 92 Room Air 12/06/24 05:25 90 16 103/56 94 Room Air 12/06/24 05:10 87 8 114/56 93 Room Air 12/06/24 05:00 86 12 93 12/06/24 04:55 89 8 99/45 94 Room Air 12/06/24 04:40 88 11 110/57 97 Room Air 12/06/24 04:30 84 5 95 12/06/24 04:00 80 94 Room Air 12/06/24 04:00 95 Room Air* 0 21 LABS: Hematology Labs: Test 12/06/24 03:52 12/05/24 05:27 Range/Units White Blood Count 9.2 # 4.8-10.8 K/uL Red Blood Count 3.40 L 4.50-6.20 MIL/uL Hemoglobin 11.1 L 14.0-18.0 g/dL Hematocrit 31.2 L 42-54 % Mean Corpuscular Volume 91.8 79-99 fL Mean Corpuscular Hemoglobin 32.6 27.0-33.0 pg Mean Corpuscular Hemoglobin Concent 35.6 32.0-36.0 g/dL Red Cell Distribution Width 13.3 11.0-15.5 % Platelet Count 52 #L 130-400 K/uL Mean Platelet Volume 10.8 H 7.5-10.5 fL Nucleated Red Blood Cells 0.0 0.0-0.19 % Platelet Morphology Comment See comments Immature Granulocyte % (Auto) 1.7 H 0-1 % Neutrophils (%) (Auto) 90.4 H 40.0-77.0 % Lymphocytes (%) (Auto) 4.5 L 21.0-51.0 % Monocytes (%) (Auto) 2.8 L 3.0-13.0 % Eosinophils (%) (Auto) 0.4 0.0-8.0 % Basophils (%) (Auto) 0.2 0.0-5.0 % Neutrophils # (Auto) 11.1 H 1.8-7.7 K/uL Lymphocytes # (Auto) 0.6 L 1.0-4.8 K/uL Monocytes # (Auto) 0.3 0.1-1.0 K/uL Eosinophils # (Auto) 0.05 0.00-0.70 K/uL Basophils # (Auto) 0.03 0.00-0.20 K/uL Absolute Immature Granulocyte (auto 0.21 0-1 K/uL Chemistry Labs: Test 12/06/24 05:45 12/06/24 03:52 12/05/24 09:46 12/05/24 05:27 Range/Units Whole Blood Glucose 145 H 70-110 MG/DL Sodium Level 140 136-145 mmol/L Potassium Level 3.3 L 3.5-5.1 mmol/L Chloride Level 111 101-111 mmol/L Carbon Dioxide Level 20 L 21-32 mmol/L Blood Urea Nitrogen 26 H 7-18 mg/dL Creatinine 1.0 0.5-1.3 mg/dL Glomerular Filtration Rate Calc 79 >90 mL/min Random Glucose 157 #H 70-105 mg/dL Total Calcium 7.6 L 8.5-10.1 mg/dL Magnesium Level 2.20 1.80-2.40 mg/dL Total Bilirubin 4.7 #H 0.2-1.0 mg/dL Aspartate Amino Transf (AST/SGOT) 65 H 10-37 U/L Alanine Aminotransferase (ALT/SGPT) 47 # 12-78 U/L Alkaline Phosphatase 92 50-136 U/L Total Protein 5.3 L 6.0-8.3 g/dL Albumin 1.8 L 3.5-5.0 g/dL Lactic Acid Level 2.3 0.8-2.5 mmol/L Hemoglobin A1c 7.3 H 4.0-6.0 % Estimated Average Glucose (eAG) 163 H 70-126 mg/dL Direct Bilirubin 6.0 H 0.0-0.3 mg/dL Ammonia < 10 L 11-32 umol/L Lactate Dehydrogenase 207 81-234 U/L Total Creatine Kinase 49 21-232 U/L Troponin I High Sensitivity 534 *H 4-75 ng/L B-Type Natriuretic Peptide 412 H 0-100 pg/mL Amylase Level 15 #L 25-115 U/L Lipase 25 16-77 U/L Procalcitonin 38.56 H 0.05-0.5 ng/mL Thyroid Stimulating Hormone (TSH) 0.74 0.36-3.74 uIU/mL Free Thyroxine (T4) Direct 1.18 0.76-1.46 ng/dL Free Triiodothyronine (T3) pg/mL 0.95 L 2.18-3.98 pg/mL DIAGNOSTICS / RADIOLOGY RESULTS: [ ] PLAN NEURO: Minimize central acting medications as possible. Maintain fall precautions, adequate lighting during the day PULMONARY: Supplemental 02 as needed. Maintain aspiration precautions at all times CARDIOVASCULAR: Follow hemodynamics. Vital signs per facility protocol GI & NUTRITION: Continue with nutritional support. Continue stool softeners and laxatives as needed. KIDNEYS & ELECTROLYTES: Strict monitoring of intake, output and overall fluid balance. Avoid nephrotoxic medications to the extent possible. Medications to be dosed according to renal function. Monitor electrolytes and replace as needed ENDOCRINE: Maintain blood glucose between 100-180 at all times. Hypoglycemia protocol in place INFECTIOUS DISEASE: Trend temperature, WBC and procalcitonin level Follow cultures, deescalate antibiotics as soon as possible. Panculture if new onset fever ONCOLOGY/HEMATOLOGY/COAGULATION: Monitor for s/s of bleeding Monitor hemoglobin, coagulation studies as needed SKIN: Pressure ulcer prevention per facility protocol Specialty mattress ORTHO/REHAB: Continue PT/OT Prophylaxis: Continue GI and DVT prophylaxis Code Status: Full Resuscitation Disposition: SOFIA TORRES Dec 06, 2024 12:00
[2024-12-06] MEDS: LACTATED RINGERS 1000ML 1,000 ML IV SCH (13:03)
--- NOTE | 2024-12-06 15:35 | CONS ---
CONSULT NOTE: CARDIOLOGY Reason for consult: Atrial flutter HPI/story at presentation: This is a pleasant 74 male with past medical history as below presents with complaints of gram-negative bacteremia sepsis and is currently, s/p pressors and resolution of sepsis, moved to the floor. Had another atrial flutter and therefore, cardiology was consulted for evaluation and management Past medical history: See below Allergies, Meds See chart Review of systems Review of Systems Constitutional: Negative for chills and fever. HENT: Negative for ear discharge and ear pain. Eyes: Negative for photophobia and discharge. Respiratory: Negative for cough, sputum production and stridor. Cardiovascular: Negative for chest pain and palpitations. Gastrointestinal: Negative for diarrhea and vomiting. Genitourinary: Negative for frequency. Musculoskeletal: Negative for myalgias. Skin: Negative for rash. Neurological: Negative for focal weakness and seizures. Endo/Heme/Allergies: Negative for polydipsia. Psychiatric/Behavioral: Negative for hallucinations. Vitals see chart PHYSICAL EXAMINATION GENERAL: The patient is alert and oriented*3 HEENT: Nonicteric sclerae, non traumatic HEART: Regular rate and rhythm with no murmurs LUNGS: Clear to auscultation bilaterally ABDOMEN: No acute issues, non tender GENITAL, RECTAL: deferred SKIN: No rash NEUROLOGIC: NFND EXTREMITIES: No edema ASSESSMENT ATRIAL FLUTTER newly diagnosed, 12/27 Rate controlled, 12/2024 SEPSIS, CYSTITIS At presentation, Resolved Associated gram-negative bacteremia THROMBOCYTOPENIA Anticoagulation on hold in the setting ACUTE KIDNEY INJURY At presentation Resolved DIABETES CORE MEASURES OTHER MEDICAL PROBLEMS Biliary stones, fatty liver, umbilical hernia, history of right colectomy, ileocolonic anastomosis, cholelithiasis Moderate degenerative disc disease PLAN 12/06/2024 no active cardiac complaints at this time, has returned to normal sinus rhythm. May continue anticoagulation if platelets improve. On rate control. Seen and examined 12/06/2024 at around 3:30 PM. ATTESTATION I was involved substantially in the care of this patient Number and complexity of problems addressed: 1 acute illness with systemic features Amount and or complexity of data Review of prior external note(s) from each unique source: 2+ Ordering of each unique test : 0 Review of the result(s) of each unique test: 2+ Assessment requiring an independent historian(s): No Independent interpretation of test performed by another MD/QHCP/appropriate so urce (not separately reported) : No Discussion of management or test interpretation with external MD/QHCP/appropriate source (not separately reported) : No Risk status (cardiac, billing related): Moderate KENIA JOHNSON MD Dec 06, 2024 15:35
[2024-12-07] VITALS (8 sets, daily range): BP systolic 99–166; BP diastolic 53–92; PULSE 74–91; RESP 16–20; TEMP 94.5–98.5; O2SAT 97–99
[2024-12-07 04:58] LABS: NUCLEATED RED BLOOD CELLS 0.0 % (0.0-0.19); PLATELET COUNT (AUTO) 41.0 K/uL (130-400); RED BLOOD CELL COUNT(AUTO) 3.16 MIL/uL (4.50-6.20); RED CELL DISTRIBUTION WIDTH 13.2 % (11.0-15.5); WHITE BLOOD COUNT (AUTO) 7.0 K/uL (4.8-10.8)
[2024-12-07 05:31] LABS: ASPARTATE AMINOTRANSFERASE 48.0 U/L (10-37); CREATININE 0.8 mg/dL (0.5-1.3); GLOMERULAR FILTR. RATE CALC 93.0 mL/min (>90); GLUCOSE,RANDOM 114.0 mg/dL (70-105); SODIUM SERUM 142.0 mmol/L (136-145); TOTAL PROTEIN, SERUM 4.9 g/dL (6.0-8.3); UREA NITROGEN, BLOOD 25.0 mg/dL (7-18)
[2024-12-07] MEDS: PoTASSium chloRIDE 10MEQ SR 10 MEQ/TAB TAB.SR.24H PO PRN (06:26)
--- NOTE | 2024-12-07 06:50 | PN ---
A 74-year-old male with diabetes mellitus, hypertension, obesity, presented to the hospital with nausea and vomiting and mild body weakness. The patient also complained of fever. T-max in the emergency room was 100.8. Imaging has been done. The patient's gallbladder is dilated. The patient is scheduled to undergo MRCP which has been done but pending official report. The patient also found positive for Streptococcal pharyngitis. PAST MEDICAL HISTORY: * Diabetes mellitus. * Hypertension. * Morbid obesity. * Colonic polyps. PAST SURGICAL HISTORY: * Right colectomy. * Colonoscopy. ALLERGIES: No known drug allergies. MEDICATIONS: Reviewed. SOCIAL HISTORY: No alcohol, tobacco, or illicit drugs. FAMILY HISTORY: Positive for diabetes mellitus. REVIEW OF SYSTEMS: Greater than 10 systems were reviewed and negative other than documented above. PHYSICAL EXAMINATION: VITAL SIGNS: There is no fever. Temperature 98.4, pulse 85, respiratory rate 18, blood pressure 130/86. EYES: No icterus. No conjunctival hemorrhage. HENT: No oral thrush seen. Moist oral mucosa. NECK: Supple. No JVD or thyromegaly. LUNGS: Good air entry. No rales, no rhonchi. CARDIOVASCULAR: S1 and S2. Regular. No murmur heard. ABDOMEN: Soft. Bowel sound is present. CENTRAL NERVOUS SYSTEM: Awake, alert, oriented x3. No focal deficits. SKIN: No rashes. LYMPHATIC: No peripheral lymphadenopathy. MUSCULOSKELETAL: No joint swelling. There is mild tenderness. ASSESSMENT: 1. Anemia 2. Gram negative sepsis. 3. Urinary tract infection. 4. Possible cholecystitis. 5. Acute renal failure. 6. Hypertension. 7. betes mellitus. 8. Thrombocytopenia Plan 1. Peripheral blood smear showed red blood cells to be normocytic normochromic. There was no fragment cell or schistocyte. There is no teardrop cell. There is no rouleaux phenomena. There is no pelger-Huet cell. White blood cell with no blasts. There is decreased platelet number. There is large platelet consistent with peripheral consumption of the platelet. 2. There was hypersegmented neutrophils. This patient to be started on folic acid 1 mg p.o. daily and vitamin B12 1000 mcg p.o. daily. 3. This patient platelet most likely due to cirrhosis of the liver and splenomegaly. Platelet count is 52K. There is no need for platelet transfusion. 4. Will ask for iron study to be done. If the iron study is low this patient will need EGD and colonoscopy 5. Will follow-up with the result. Vitals/Labs Vital Signs Date Time Temp Pulse Resp B/P (MAP) Pulse Ox O2 Delivery O2 Flow Rate FiO2 12/07/24 04:00 97.9 78 20 106/58 94 Room Air 12/06/24 20:13 0 21 Laboratory Tests 12/07/24 04:37 Medications Current Medications Ondansetron HCl 4 mg ONCE ONCE IVP Last administered on 12/04/24at 07:40; Start 12/04/24 at 07:30; Stop 12/04/24 at 07:31; Status DC Lactated Ringer's 1,000 ml BOLUS STAT IV Last administered on 12/04/24at 07:40; Start 12/04/24 at 07:07; Stop 12/04/24 at 07:14; Status DC Acetaminophen 1,000 mg ONCE ONCE PO Last administered on 12/04/24at 08:29; Start 12/04/24 at 08:30; Stop 12/04/24 at 08:31; Status DC Piperacillin Sod/ Tazobactam Sod 3.375 gm ONCE ONCE IV Last administered on 12/04/24at 09:35; Start 12/04/24 at 09:30; Stop 12/04/24 at 09:31; Status DC Sodium Chloride 1,000 ml @ 125 mls/hr ONCE ONCE IV Last administered on 12/04/24at 09:35; Start 12/04/24 at 09:30; Stop 12/04/24 at 17:29; Status DC Insulin Human Regular INSULIN SLIDING SCAL... ACHS SQ; Start 12/04/24 at 11:30; Stop 01/03/25 at 11:29 Dextrose 50 ml AD PRN IV; Start 12/04/24 at 11:00; Stop 01/03/25 at 10:59 Glucagon 1 mg AD PRN IM; Start 12/04/24 at 11:00; Stop 01/03/25 at 10:59 Potassium Chloride 100 ml @ 100 mls/hr AD PRN IV; Start 12/04/24 at 11:00; Stop 01/03/25 at 10:59 Potassium Chloride 10 meq AD PRN PO Last administered on 12/06/24at 11:45; Start 12/04/24 at 11:00; Stop 01/03/25 at 10:59 Potassium Chloride 10 meq AD PRN PO; Start 12/04/24 at 11:00; Stop 12/05/24 at 06:30; Status DC Magnesium Sulfate 50 ml @ 0 mls/hr PROTOCOL PRN IV Last administered on 12/04/24at 17:09; Start 12/04/24 at 11:00; Stop 01/03/25 at 10:59 Diphenhydramine HCl 25 mg Q4H PRN PO; Start 12/04/24 at 11:00; Stop 01/03/25 at 10:59 Acetaminophen 650 mg Q6H PRN PO; Start 12/04/24 at 11:00; Stop 01/03/25 at 10:59 Acetaminophen 650 mg Q4H PRN PO; Start 12/04/24 at 11:00; Stop 12/04/24 at 10:57; Status DC Ondansetron HCl 4 mg Q6H PRN IV; Start 12/04/24 at 11:00; Stop 01/03/25 at 10:59 Zolpidem Tartrate 5 mg HS PRN PO; Start 12/04/24 at 11:00; Stop 01/03/25 at 10:59 Al Hydroxide/Mg Hydroxide 30 ml Q6H PRN PO; Start 12/04/24 at 11:00; Stop 01/03/25 at 10:59 Lactulose 20 gm BID PRN PO; Start 12/04/24 at 11:00; Stop 01/03/25 at 10:59 Nitroglycerin 0.4 mg PROTOCOL PRN SL; Start 12/04/24 at 11:00; Stop 01/03/25 at 10:59 Guaifenesin/ Dextromethorphan 10 ml Q4H PRN PO; Start 12/04/24 at 11:00; Stop 01/03/25 at 10:59 Famotidine 20 mg BID PRN IV; Start 12/04/24 at 11:00; Stop 12/04/24 at 10:57; Status DC Heparin Sodium (Porcine) 5,000 unit BID SQ Last administered on 12/04/24at 22:19; Start 12/04/24 at 21:00; Stop 12/06/24 at 08:45; Status DC Acetaminophen 650 mg Q6H PRN PO; Start 12/04/24 at 11:00; Stop 01/03/25 at 10:59 Ketorolac Tromethamine 15 mg Q8H PRN IV Last administered on 12/07/24at 03:28; Start 12/04/24 at 11:00; Stop 12/09/24 at 10:59 Morphine Sulfate 1 mg Q4H PRN IVP; Start 12/04/24 at 11:00; Stop 12/11/24 at 10:59 Vancomycin HCl 250 ml @ 125 mls/hr ONCE IV Last administered on 12/04/24at 11:00; Start 12/04/24 at 11:00; Stop 12/04/24 at 12:59; Status DC Piperacillin Sod/ Tazobactam Sod 50 ml @ 12.5 mls/hr Q8H IV Last administered on 12/04/24at 17:09; Start 12/04/24 at 17:30; Stop 12/04/24 at 21:34; Status DC Sodium Chloride 1,000 ml @ 100 mls/hr Q10H IV Last administered on 12/06/24at 02:46; Start 12/04/24 at 11:00; Stop 12/06/24 at 12:47; Status DC Hydralazine HCl 10 mg Q6H PRN IV; Start 12/04/24 at 11:00; Stop 12/04/24 at 13:13; Status DC Famotidine 20 mg Q24H IV Last administered on 12/06/24at 20:06; Start 12/04/24 at 21:00; Stop 01/03/25 at 20:59 Vancomycin HCl 250 ml @ 125 mls/hr Q24H IV Last administered on 12/05/24at 11:57; Start 12/05/24 at 11:00; Stop 12/05/24 at 13:42; Status DC Norepinephrine 250 ml @ 0 mls/hr PROTOCOL STAT IV Last administered on 12/04/24at 13:12; Start 12/04/24 at 12:14; Stop 12/04/24 at 12:18; Status DC Gadoterate Meglumine 10 mmol STK-MED ONCE IV; Start 12/04/24 at 12:59; Stop 12/04/24 at 12:59; Status DC Cefepime HCl 1 gm Q8H IVPB Last administered on 12/05/24at 00:15; Start 12/04/24 at 16:00; Stop 12/05/24 at 06:31; Status DC Norepinephrine 250 ml @ 0 mls/hr PROTOCOL IV Last administered on 12/05/24at 14:03; Start 12/04/24 at 17:17; Stop 01/03/25 at 17:16 Potassium Chloride 10 meq AD PRN PO Last administered on 12/07/24at 06:26; Start 12/05/24 at 07:00; Stop 01/03/25 at 10:59 Cefepime HCl 1 gm Q12H IVPB; Start 12/05/24 at 12:00; Stop 12/05/24 at 13:42; Status DC Pharmacy Profile Note 1 each ONCE MISC; Start 12/05/24 at 14:00; Stop 12/05/24 at 13:51; Status DC Meropenem 1 gm Q12H IVPB Last administered on 12/07/24at 03:25; Start 12/05/24 at 14:00; Stop 12/15/24 at 13:59 Lactated Ringer's 1,000 ml @ 75 mls/hr [id number] IV Last administered on 12/07/24at 03:26; Start 12/06/24 at 13:00; Stop 01/05/25 at 12:59 Acetaminophen 650 mg ONCE ONCE PO Last administered on 12/06/24at 13:02; Start 12/06/24 at 13:00; Stop 12/06/24 at 13:01; Status DC Metoprolol Tartrate 12.5 mg BID PO; Start 12/06/24 at 21:00; Stop 01/05/25 at 20:59 STEVEN SINCLAIR MD Dec 07, 2024 06:50
[2024-12-07] MEDS: PoTASSium chloRIDE 20MEQ ER 20 MEQ ERTAB PO ONE (08:45)
--- NOTE | 2024-12-07 10:01 | PN ---
[facility] PROGRESS NOTE Date of Service: Dec 07, 2024 Time of Service: 09:55 SUBJECTIVE: 12/05 the patient has been seen and examined at bedside, case discussed with the RN, patient admitted to the ICU, remains on Levophed for blood pressure support, BP 105/44, afebrile, saturating normal on room air. During my visit the patient is alert and oriented x3, he denies chest pain, no shortness a breath, no nausea, no vomiting, no abdominal pain, no diarrhea. WBC slowly trending down, today 12.3, hemoglobin 12.4, hematocrit 34.8, with a platelet count of 76. Stool occult blood positive. Group A strep a rapid test is positive. Total bilirubin of 7.2. MRCP showing cholelithiasis without acute cholecystitis, no biliary obstruction, incidental pancreatic divisum, he per cirrhosis, hepatic steatosis, mild splenomegaly, left renal cortical cyst. HIDA scan no acute cholecystitis. Echocardiogram showing LVEF 55%, left ventricle diastolic function is normal, the right ventricular systolic function is normal, the atria are normal in size, no hemodynamically significant valvular abnormalities, how pericardial effusion. Blood culture positive for Gram-negative rods 2/2 blood sets. Urine culture [id number] CFU, identification and susceptibilities in process. Patient evaluated by GI, recommended EGD for further evaluation. Recommended also colonoscopy. 12/06 patient is seen and examined at bedside, case discussed with the RN, no acute events overnight, the patient off Levophed, hemodynamically stable, afebrile, saturating normal on room air. Results of urine culture positive for E coli. Blood culture positive for Gram-negative rods, pending final identification. Patient to continue broad-spectrum IV antibiotics. HIDA scan no acute cholecystitis. Echocardiogram showing LVEF 55%, left ventricle diastolic function is normal, the right ventricular systolic function is normal, the atria are normal in size, no hemodynamically significant valvular abnormalities, how pericardial effusion. Blood culture positive for Gram-negative rods 2/2 blood sets. Urine culture [id number] CFU, identification and susceptibilities in process. Patient evaluated by GI, recommended EGD for further evaluation. Recommended also colonoscopy. Patient to be downgraded to PCU. 12/07 patient is seen and examined at bedside, downgraded to the medical floor, alert oriented x3 at the time of my visit, he is getting broad-spectrum IV antibiotics, denies chest pain, shortness shortness for breath, no nausea, no vomit. Results of blood culture positive for E coli, urine culture positive for E coli. Continue the patient on broad-spectrum IV antibiotics. Patient with thrombocytopenia, Hematology consultation requested, recommended to transfuse 1 unit of platelets prior to EGD tomorrow by GI. Patient also with a atrial flutter, cardiology consulted, continue the patient on metoprolol tartrate 12.5 mg p.o. b.i.d..May continue anticoagulation if platelets improve. REVIEW OF SYSTEMS CONSTITUTIONAL: Denies fevers, chills, or night sweats. No unintentional weight loss reported. Complains of generalized body weakness NEUROLOGICAL: Denies headache, amaurosis fugax, motor weakness, sensory deficit, vertigo/spinning sensation, gait abnormalities, or tremors. ENT: No hearing loss, otalgia, otorrhea, rhinitis, rhinorrhea, hoarseness, or sore throat. CARDIOVASCULAR: Denies any exertional angina, dyspnea on exertion, orthopnea, paroxysmal nocturnal dyspnea, palpitations, life-threatening arrhythmias, claudication. PULMONARY: Denies any shortness of breath, cough, phlegm/sputum, hemoptysis, pleuritic chest pain. SLEEP: Denies morning headaches, daytime somnolence or napping. Denies difficulty falling asleep, staying asleep, waking from sleep. Denies knowledge of snoring. GASTROINTESTINAL: Denies any type of dysphagia to either liquids or solids. Denies , pyrosis, early satiety, abdominal pain, diarrhea, constipation, or changes in stool consistency or caliber. Denies coffee-ground emesis, hematemesis, hematochezia, or melanotic stools. Complains of nausea and vomiting GENITOURINARY: Denies frequency, urgency, nocturia, hematuria or incontinence (Storage/Irritative symptoms.) Low urinary stream, straining to void, urinary intermittency or hesitancy, splitting of the voiding stream, terminal dribbling. ENDOCRINOLOGIC: Denies polyuria, polydipsia, polyphagia or heat/cold intolerances. HEMATOLOGIC: Denies thrombophilia/previous clots, or coagulopathy/bleeding disorders. ONCOLOGIC: Denies personal history of malignancy. DERMATOLOGIC: Denies rashes or pruritus. PSYCHIATRIC: Denies any suicidal or homicidal ideation. Denies hallucinations. PHYSICAL EXAM GENERAL APPEARANCE: The patient is awake, alert, and oriented, in no acute cardiopulmonary distress. NEUROLOGICAL: Cranial nerves II-XII grossly intact. Motor is 5/5 in bilateral upper and lower extremities proximal to distal. No sensory deficits. HEENT: Face is symmetric. Pupils are equal and reactive. Extraocular movements are intact. NECK: Supple. No JVD. No thyromegaly. No submental, submandibular, pre- /postauricular, occipital or supraclavicular lymphadenopathy. CHEST: Normal chest expansion. No Telemetry. LUNGS: Absence of any rales, rhonchi or any wheezing. CARDIOVASCULAR: Regular. S1 and S2 normal. No appreciable rubs, murmurs or gallops. ABDOMEN: Soft, nontender, and nondistended. There is no rebound, voluntary guarding, or rigidity. : Deferred. No Mariano. EXTREMITIES: Non-edematous and not cyanotic. No clubbing. Good capillary refill. SKIN: No skin breakdown. Vital Signs (last 8hr) Date Time Temp Pulse Resp B/P (MAP) Pulse Ox O2 Delivery O2 Flow Rate FiO2 12/07/24 08:13 94.5 76 16 100/72 99 Room Air 105/ 12/07/24 08:10 98.4 20 166/92 Room Air 12/07/24 04:00 97.9 78 20 106/58 94 Room Air LABS: Laboratory: Test 12/07/24 05:34 12/07/24 04:37 12/06/24 03:52 Range/Units Whole Blood Glucose 105 70-110 MG/DL White Blood Count 7.0 4.8-10.8 K/uL Red Blood Count 3.16 L 4.50-6.20 MIL/uL Hemoglobin 10.3 L 14.0-18.0 g/dL Hematocrit 28.8 L 42-54 % Mean Corpuscular Volume 91.1 79-99 fL Mean Corpuscular Hemoglobin 32.6 27.0-33.0 pg Mean Corpuscular Hemoglobin Concent 35.8 32.0-36.0 g/dL Red Cell Distribution Width 13.2 11.0-15.5 % Platelet Count 41 L 130-400 K/uL Mean Platelet Volume 10.9 H 7.5-10.5 fL Nucleated Red Blood Cells 0.0 0.0-0.19 % Sodium Level 142 136-145 mmol/L Potassium Level 3.2 L 3.5-5.1 mmol/L Chloride Level 110 101-111 mmol/L Carbon Dioxide Level 22 21-32 mmol/L Blood Urea Nitrogen 25 H 7-18 mg/dL Creatinine 0.8 0.5-1.3 mg/dL Glomerular Filtration Rate Calc 93 >90 mL/min Random Glucose 114 H 70-105 mg/dL Total Calcium 7.5 L 8.5-10.1 mg/dL Magnesium Level 1.90 1.80-2.40 mg/dL Total Bilirubin 3.9 H 0.2-1.0 mg/dL Aspartate Amino Transf (AST/SGOT) 48 H 10-37 U/L Alanine Aminotransferase (ALT/SGPT) 39 12-78 U/L Alkaline Phosphatase 93 50-136 U/L Total Protein 4.9 L 6.0-8.3 g/dL Albumin 1.6 L 3.5-5.0 g/dL Platelet Morphology Comment See comments Current Medications Medications (Trade) Dose Ordered Sig/Panchito Route PRN Reason Start Time Stop Time Status Last Admin Dose Admin Acetaminophen (TYLenol 325MG TAB) 650 mg Q4H PRN PO MILD PAIN (1-3) 12/04/24 11:00 12/04/24 10:57 DC Acetaminophen (TYLenol 325MG TAB) 650 mg Q6H PRN PO MILD PAIN (1-3) 12/04/24 11:00 01/03/25 10:59 Acetaminophen (TYLenol 325MG TAB) 650 mg Q6H PRN PO TEMPERATURE GREATER THAN 101.5 12/04/24 11:00 01/03/25 10:59 Al Hydroxide/Mg Hydroxide (MAALox PLUS 30ML) 30 ml Q6H PRN PO INDIGESTION 12/04/24 11:00 01/03/25 10:59 Cefepime HCl (MAXipime 1 GM vial) 1 gm Q12H IVPB 12/05/24 12:00 12/05/24 13:42 DC Cefepime HCl (MAXipime 1 GM vial) 1 gm Q8H IVPB 12/04/24 16:00 12/05/24 06:31 DC 12/05/24 00:15 1 GM Dextrose (D50w) 50 ml AD PRN IV HYPOGLYCEMIA PROTOCOL 12/04/24 11:00 111/25 10:59 Diphenhydramine HCl (BENAdryl CAP) 25 mg Q4H PRN PO MILD ITCHING/RASH 12/04/24 11:00 01/03/25 10:59 Famotidine (Pepcid 20mg Vial) 20 mg BID PRN IV NAUSEA/VOMITING 12/04/24 11:00 12/04/24 10:57 DC Famotidine (Pepcid 20mg Vial) 20 mg Q24H IV 12/04/24 21:00 01/03/25 20:59 12/06/24 20:06 20 MG Glucagon (Glucagon 1mg Kit) 1 mg AD PRN IM HYPOGLYCEMIA PROTOCOL 12/04/24 11:00 01/03/25 10:59 Guaifenesin/ Dextromethorphan (RobiTUSSin DM 200/20MG 10ML) 10 ml Q4H PRN PO COUGH 12/04/24 11:00 01/03/25 10:59 Heparin Sodium (Porcine) (HEParin 5,000 UNIT VIAL) 5,000 unit BID SQ 12/04/24 21:00 12/06/24 08:45 DC 12/04/24 22:19 5,000 UNIT Hydralazine HCl (APRESOLine 20MG INJ) 10 mg Q6H PRN IV For:SBP above 160;DBP above 90 12/04/24 11:00 12/04/24 13:13 DC Insulin Human Regular (humuLIN R 100 UNIT/ML 3ML) INSULIN SLIDING SCAL... ACHS SQ 12/04/24 11:30 01/03/25 11:29 Ketorolac Tromethamine (toRADol) 15 mg Q8H PRN IV MODERATE PAIN (4-6) 12/04/24 11:00 12/09/24 10:59 12/07/24 03:28 15 MG Lactated Ringer's 1,000 ml @ 75 mls/hr [id number] IV 12/06/24 13:00 01/05/25 12:59 12/07/24 03:26 75 MLS/HR Lactated Ringer's (Lactated Ringers 1000ml) 1,000 ml BOLUS STAT IV 12/04/24 07:07 12/04/24 07:14 DC 12/04/24 07:40 1,000 ML Lactulose (Constulose 20gm/ 30ml Udcup) 20 gm BID PRN PO CONSTIPATION 12/04/24 11:00 01/03/25 10:59 Magnesium Sulfate 50 ml @ 0 mls/hr PROTOCOL PRN IV OTHER [SEE ORDER COMMENTS] 12/04/24 11:00 01/03/25 10:59 12/04/24 17:09 50 MLS/HR Meropenem (Merrem 1gm) 1 gm Q12H IVPB 12/05/24 14:00 12/15/24 13:59 12/07/24 03:25 1 GM Metoprolol Tartrate (loprESSOR) 12.5 mg BID PO 12/06/24 21:00 01/05/25 20:59 12/07/24 08:44 12.5 MG Morphine Sulfate (morPHINE 4MG SYG) 1 mg Q4H PRN IVP SEVERE PAIN (7-10) 12/04/24 11:00 12/11/24 10:59 Nitroglycerin (Nitrostat) 0.4 mg PROTOCOL PRN SL CHEST PAIN 12/04/24 11:00 01/03/25 10:59 Norepinephrine 250 ml @ 0 mls/hr PROTOCOL IV 12/04/24 17:17 01/03/25 17:16 12/05/24 14:03 3.09 MLS/HR Norepinephrine 250 ml @ 0 mls/hr PROTOCOL STAT IV 12/04/24 12:14 12/04/24 12:18 DC 12/04/24 13:12 0.1 MLS/HR Ondansetron HCl (zoFRAN 4MG INJ) 4 mg Q6H PRN IV NAUSEA/VOMITING 12/04/24 11:00 01/03/25 10:59 Pharmacy Profile Note (Pharmacy Communication) 1 each ONCE MISC 12/05/24 14:00 12/05/24 13:51 DC Piperacillin Sod/ Tazobactam Sod 50 ml @ 12.5 mls/hr Q8H IV 12/04/24 17:30 12/04/24 21:34 DC 12/04/24 17:09 12.5 MLS/HR Potassium Chloride 100 ml @ 100 mls/hr AD PRN IV POTASSIUM PROTOCOL 12/04/24 11:00 01/03/25 10:59 Potassium Chloride (K-Dur 10meq Sr Tab) 10 meq AD PRN PO POTASSIUM PROTOCOL 12/05/24 07:00 01/03/25 10:59 12/07/24 06:26 10 MEQ Potassium Chloride (K-Dur/Klor-Con 20meq) 10 meq AD PRN PO POTASSIUM PROTOCOL 12/04/24 11:00 12/05/24 06:30 DC Potassium Chloride (KCl 10% Elixir 20meq/15ml) 10 meq AD PRN PO POTASSIUM PROTOCOL 12/04/24 11:00 01/03/25 10:59 12/06/24 11:45 10 MEQ Sodium Chloride 1,000 ml @ 100 mls/hr Q10H IV 12/04/24 11:00 12/06/24 12:47 DC 12/06/24 02:46 100 MLS/HR Vancomycin HCl 250 ml @ 125 mls/hr ONCE IV 12/04/24 11:00 12/04/24 12:59 DC 12/04/24 11:00 125 MLS/HR Vancomycin HCl 250 ml @ 125 mls/hr Q24H IV 12/05/24 11:00 12/05/24 13:42 DC 12/05/24 11:57 125 MLS/HR Zolpidem Tartrate (AmbIEN) 5 mg HS PRN PO INSOMNIA 12/04/24 11:00 01/03/25 10:59 DIAGNOSTICS / RADIOLOGY: [ ] ASSESSMENT: Septic shock, POA Gram-negative bacteremia, POA UTI, POA Generalized body weakness POA Intractable nausea and vomiting POA Acute kidney injury POA Acute dehydration POA Right flank pain POA Left intrahepatic biliary duct measuring [address] ultrasound abdomen POA Cholelithiasis per ultrasound abdomen POA Fatty liver per CT abdomen/pelvis POA Umbilical hernia per CT abdomen/pelvis POA Moderate degenerative disc disease of the spine per CT abdomen/pelvis POA Uncontrolled diabetes mellitus type 2 with hypoglycemia POA Hypotension POA Acute complicated cystitis POA Acute multifactorial anemia POA Hyperlipidemia POA Obesity POA History of polyp removal History of extended right colectomy with ileocolic anastomosis thrombocytopenia PLAN: patient is seen and examined at bedside, downgraded to the medical floor, alert oriented x3 at the time of my visit, he is getting broad-spectrum IV antibiotics, denies chest pain, shortness shortness for breath, no nausea, no vomit. Results of blood culture positive for E coli, urine culture positive for E coli. Continue the patient on broad-spectrum IV antibiotics. Patient with thrombocytopenia, Hematology consultation requested, recommended to transfuse 1 unit of platelets prior to EGD tomorrow by GI. Patient also with a atrial flutter, cardiology consulted, continue the patient on metoprolol tartrate 12.5 mg p.o. b.i.d..May continue anticoagulation if platelets improve. NEURO: Minimize central acting medications as possible. Fall Precautions. Well lighted room through the day and minimize interruptions through the night to prevent acute delirium. PULMONARY: Supplemental 02 as needed BiPAP as necessary, for respiratory distress Titrate Fio2 to keep Spo2 > or = 90% DuoNebs and CPT as needed IS hourly while awake for pulmonary hygiene prn Out of bed to chair as tolerated Maintain aspiration precautions at all times CARDIOVASCULAR: Follow hemodynamics. Vital signs per facility protocol GI & NUTRITION: Continue nutritional support Aspirations precautions Prokinetic agents and laxatives as needed KIDNEYS & ELECTROLYTES: Strict monitoring of intake and output Daily weights Avoid nephrotoxic agents Monitor electrolytes and replace as needed Goal urine output of 30mL/hr or 0.5mL/kg/hr Medications to be dosed according to renal function. Avoid contrast if possible ENDOCRINE: Maintain blood glucose between 100-180 at all times. Insulin sliding scale for blood glucose management Hypoglycemia and hyperglycemia protocol in place INFECTIOUS DISEASE: Trend temperature, WBC and procalcitonin level Follow cultures, deescalate antibiotics as soon as possible. Panculture if new onset fever HEMATOLOGY & COAGULATION: Monitor H&H. Keep Hgb > 7 Transfuse 1 unit of PRBC for Hgb < 7 Transfuse 1 pack of platelets of platelets < 20, 000 Watch for any signs and symptoms of bleeding SKIN: Pressure ulcer prevention per facility protocol Specialty mattress as needed ORTHO/REHAB Continue PT/OT PRN: MEDICATIONS Tylenol 650 mg po every 4 hrs for fever zofran 4 mg IV every 6 hrs for n/v Hydralazine 5 mg IV every 4 hrs systolic pressure > 160 bowel regiment: lactulose 20 gm PO BID PRN constipation Supportive measures: Continue GI and DVT prophylaxis All questions answered time spent: > 35 min LINDA RUIZ MD Dec 07, 2024 10:01
--- NOTE | 2024-12-07 12:35 | EKG ---
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: sue quiros : 1950 Requested By: LINDA RUIZ Order Number: [id number] Reading MD: Magno Gottlieb Measurements Intervals [place] Rate: 107 P: 46 AR: 218 QRS: 11 QRSD: 60 T: 38 QT: 330 QTc: 440 Interpretive Statements Sinus tachycardia with 1st degree AV block with occasional premature ventricular complex Early R wave transition Compared to ECG 12/05/2024 21:45:19 Ventricular premature complex(es) now present First degree AV block now present Atrial flutter no longer present Electronically Signed On 12-07-2024 14:26:43 CDT by Magno Gottlieb Please click the below link to view image of tracing.
--- NOTE | 2024-12-07 20:16 | PN ---
CARDIOLOGY Reason for consult: Atrial flutter HPI/story at presentation: This is a pleasant 74 male with past medical history as below presents with complaints of gram-negative bacteremia sepsis and is currently, s/p pressors and resolution of sepsis, moved to the floor. Had another atrial flutter and therefore, cardiology was consulted for evaluation and management Past medical history: See below Allergies, Meds See chart Review of systems Review of Systems Constitutional: Negative for chills and fever. HENT: Negative for ear discharge and ear pain. Eyes: Negative for photophobia and discharge. Respiratory: Negative for cough, sputum production and stridor. Cardiovascular: Negative for chest pain and palpitations. Gastrointestinal: Negative for diarrhea and vomiting. Genitourinary: Negative for frequency. Musculoskeletal: Negative for myalgias. Skin: Negative for rash. Neurological: Negative for focal weakness and seizures. Endo/Heme/Allergies: Negative for polydipsia. Psychiatric/Behavioral: Negative for hallucinations. Vitals see chart PHYSICAL EXAMINATION GENERAL: The patient is alert and oriented*3 HEENT: Nonicteric sclerae, non traumatic HEART: Regular rate and rhythm with no murmurs LUNGS: Clear to auscultation bilaterally ABDOMEN: No acute issues, non tender GENITAL, RECTAL: deferred SKIN: No rash NEUROLOGIC: NFND EXTREMITIES: No edema ASSESSMENT ATRIAL FLUTTER newly diagnosed, 12/27 Rate controlled, 12/2024 SEPSIS, CYSTITIS At presentation, Resolved Associated gram-negative bacteremia THROMBOCYTOPENIA Anticoagulation on hold in the setting ACUTE KIDNEY INJURY At presentation Resolved DIABETES CORE MEASURES OTHER MEDICAL PROBLEMS Biliary stones, fatty liver, umbilical hernia, history of right colectomy, ileocolonic anastomosis, cholelithiasis Moderate degenerative disc disease PLAN 12/06/2024 no active cardiac complaints at this time, has returned to normal sinus rhythm. May continue anticoagulation if platelets improve. On rate control. Seen and examined 12/06/2024 at around 3:30 PM. 12/07/2024 No active cardiac complaints at this time, blood cultures are positive for E. coli are currently on IV antibiotics, ongoing issues with thrombocytopenia, platelets being provided prior to EGD. On beta-blockers, not on anticoagulation at this time until platelets improve. Will follow perioperatively. Echocardiogram was previously with normal ejection fraction. Seen and examined 12/07/2024 around 8 PM. ATTESTATION I was involved substantially in the care of this patient Number and complexity of problems addressed: 1 acute illness with systemic features Amount and or complexity of data Review of prior external note(s) from each unique source: 2+ Ordering of each unique test : 0 Review of the result(s) of each unique test: 2+ Assessment requiring an independent historian(s): No Independent interpretation of test performed by another MD/QHCP/appropriate source (not separately reported) : No Discussion of management or test interpretation with external MD/QHCP/appropriate source (not separately reported) : No Risk status (cardiac, billing related): Moderate Vitals/Labs Vital Signs Date Time Temp Pulse Resp B/P (MAP) Pulse Ox O2 Delivery O2 Flow Rate FiO2 12/07/24 16:16 97.3 75 20 112/53 95 Room Air 12/07/24 08:00 0 21 Laboratory Tests 12/07/24 04:37 Medications Current Medications Ondansetron HCl 4 mg ONCE ONCE IVP Last administered on 12/04/24at 07:40; Start 12/04/24 at 07:30; Stop 12/04/24 at 07:31; Status DC Lactated Ringer's 1,000 ml BOLUS STAT IV Last administered on 12/04/24at 07:40; Start 12/04/24 at 07:07; Stop 12/04/24 at 07:14; Status DC Acetaminophen 1,000 mg ONCE ONCE PO Last administered on 12/04/24at 08:29; Start 12/04/24 at 08:30; Stop 12/04/24 at 08:31; Status DC Piperacillin Sod/ Tazobactam Sod 3.375 gm ONCE ONCE IV Last administered on 12/04/24at 09:35; Start 12/04/24 at 09:30; Stop 12/04/24 at 09:31; Status DC Sodium Chloride 1,000 ml @ 125 mls/hr ONCE ONCE IV Last administered on 12/04/24at 09:35; Start 12/04/24 at 09:30; Stop 12/04/24 at 17:29; Status DC Insulin Human Regular INSULIN SLIDING SCAL... ACHS SQ Last administered on 12/07/24at 12:39; Start 12/04/24 at 11:30; Stop 01/03/25 at 11:29 Dextrose 50 ml AD PRN IV; Start 12/04/24 at 11:00; Stop 01/03/25 at 10:59 Glucagon 1 mg AD PRN IM; Start 12/04/24 at 11:00; Stop 01/03/25 at 10:59 Potassium Chloride 100 ml @ 100 mls/hr AD PRN IV; Start 12/04/24 at 11:00; Stop 01/03/25 at 10:59 Potassium Chloride 10 meq AD PRN PO Last administered on 12/06/24at 11:45; Start 12/04/24 at 11:00; Stop 01/03/25 at 10:59 Potassium Chloride 10 meq AD PRN PO; Start 12/04/24 at 11:00; Stop 12/05/24 at 06:30; Status DC Magnesium Sulfate 50 ml @ 0 mls/hr PROTOCOL PRN IV Last administered on 12/07/24at 12:30; Start 12/04/24 at 11:00; Stop 01/03/25 at 10:59 Diphenhydramine HCl 25 mg Q4H PRN PO; Start 12/04/24 at 11:00; Stop 01/03/25 at 10:59 Acetaminophen 650 mg Q6H PRN PO; Start 12/04/24 at 11:00; Stop 01/03/25 at 10:59 Acetaminophen 650 mg Q4H PRN PO; Start 12/04/24 at 11:00; Stop 12/04/24 at 10:57; Status DC Ondansetron HCl 4 mg Q6H PRN IV; Start 12/04/24 at 11:00; Stop 01/03/25 at 10:59 Zolpidem Tartrate 5 mg HS PRN PO; Start 12/04/24 at 11:00; Stop 01/03/25 at 10:59 Al Hydroxide/Mg Hydroxide 30 ml Q6H PRN PO; Start 12/04/24 at 11:00; Stop 01/03/25 at 10:59 Lactulose 20 gm BID PRN PO; Start 12/04/24 at 11:00; Stop 01/03/25 at 10:59 Nitroglycerin 0.4 mg PROTOCOL PRN SL; Start 12/04/24 at 11:00; Stop 01/03/25 at 10:59 Guaifenesin/ Dextromethorphan 10 ml Q4H PRN PO; Start 12/04/24 at 11:00; Stop 01/03/25 at 10:59 Famotidine 20 mg BID PRN IV; Start 12/04/24 at 11:00; Stop 12/04/24 at 10:57; Status DC Heparin Sodium (Porcine) 5,000 unit BID SQ Last administered on 12/04/24at 22:19; Start 12/04/24 at 21:00; Stop 12/06/24 at 08:45; Status DC Acetaminophen 650 mg Q6H PRN PO; Start 12/04/24 at 11:00; Stop 01/03/25 at 10:59 Ketorolac Tromethamine 15 mg Q8H PRN IV Last administered on 12/07/24at 03:28; Start 12/04/24 at 11:00; Stop 12/09/24 at 10:59 Morphine Sulfate 1 mg Q4H PRN IVP; Start 12/04/24 at 11:00; Stop 12/11/24 at 10:59 Vancomycin HCl 250 ml @ 125 mls/hr ONCE IV Last administered on 12/04/24at 11:00; Start 12/04/24 at 11:00; Stop 12/04/24 at 12:59; Status DC Piperacillin Sod/ Tazobactam Sod 50 ml @ 12.5 mls/hr Q8H IV Last administered on 12/04/24at 17:09; Start 12/04/24 at 17:30; Stop 12/04/24 at 21:34; Status DC Sodium Chloride 1,000 ml @ 100 mls/hr Q10H IV Last administered on 12/06/24at 02:46; Start 12/04/24 at 11:00; Stop 12/06/24 at 12:47; Status DC Hydralazine HCl 10 mg Q6H PRN IV; Start 12/04/24 at 11:00; Stop 12/04/24 at 13:13; Status DC Famotidine 20 mg Q24H IV Last administered on 12/06/24at 20:06; Start 12/04/24 at 21:00; Stop 01/03/25 at 20:59 Vancomycin HCl 250 ml @ 125 mls/hr Q24H IV Last administered on 12/05/24at 11:57; Start 12/05/24 at 11:00; Stop 12/05/24 at 13:42; Status DC Norepinephrine 250 ml @ 0 mls/hr PROTOCOL STAT IV Last administered on 12/04/24at 13:12; Start 12/04/24 at 12:14; Stop 12/04/24 at 12:18; Status DC Gadoterate Meglumine 10 mmol STK-MED ONCE IV; Start 12/04/24 at 12:59; Stop 12/04/24 at 12:59; Status DC Cefepime HCl 1 gm Q8H IVPB Last administered on 12/05/24at 00:15; Start 12/04/24 at 16:00; Stop 12/05/24 at 06:31; Status DC Norepinephrine 250 ml @ 0 mls/hr PROTOCOL IV Last administered on 12/05/24at 14:03; Start 12/04/24 at 17:17; Stop 01/03/25 at 17:16 Potassium Chloride 10 meq AD PRN PO Last administered on 12/07/24at 06:26; Start 12/05/24 at 07:00; Stop 01/03/25 at 10:59 Cefepime HCl 1 gm Q12H IVPB; Start 12/05/24 at 12:00; Stop 12/05/24 at 13:42; Status DC Pharmacy Profile Note 1 each ONCE MISC; Start 12/05/24 at 14:00; Stop 12/05/24 at 13:51; Status DC Meropenem 1 gm Q12H IVPB Last administered on 12/07/24at 15:40; Start 12/05/24 at 14:00; Stop 12/15/24 at 13:59 Lactated Ringer's 1,000 ml @ 75 mls/hr [id number] IV Last administered on 12/07/24at 15:40; Start 12/06/24 at 13:00; Stop 01/05/25 at 12:59 Acetaminophen 650 mg ONCE ONCE PO Last administered on 12/06/24at 13:02; Start 12/06/24 at 13:00; Stop 12/06/24 at 13:01; Status DC Metoprolol Tartrate 12.5 mg BID PO Last administered on 12/07/24at 08:44; Start 12/06/24 at 21:00; Stop 01/05/25 at 20:59 Potassium Chloride 40 meq ONCE ONCE PO Last administered on 12/07/24at 08:45; Start 12/07/24 at 08:00; Stop 12/07/24 at 08:01; Status DC Potassium Chloride 100 ml @ 50 mls/hr ONCE ONCE IV Last administered on 12/07/24at 08:45; Start 12/07/24 at 08:00; Stop 12/07/24 at 09:59; Status DC KENIA JOHNSON MD Dec 07, 2024 20:15
[2024-12-08] VITALS (21 sets, daily range): BP systolic 101–150; BP diastolic 50–74; PULSE 66–86; RESP 16–24; TEMP 97.8–98.5; O2SAT 96
--- NOTE | 2024-12-08 00:58 | PN ---
INFECTIOUS DISEASE FOLLOWUP NOTE DATE OF SERVICE: 12/07/2024 SUBJECTIVE: The patient is seen and examined at bedside today. The patient denies fever or chills. Tolerating antibiotics. No nausea or vomiting. No sore throat or rhinorrhea. No depression. No suicidal ideation. ____. PHYSICAL EXAMINATION: VITAL SIGNS: ____. EYES: No icterus. Pupils are equal and reactive. HENT: No oral thrush seen. Moist oral mucosa. NECK: Supple. No JVD or thyromegaly. LUNGS: Good air entry. No rales. No rhonchi. CARDIOVASCULAR: S1 and S2, regular. No murmur heard. ABDOMEN: Soft, nontender. Bowel sound is present. CENTRAL NERVOUS SYSTEM: Awake, alert, oriented x3. No focal deficits. SKIN: No rashes. No itchiness. LYMPHATIC: No peripheral lymphadenopathy. BACK: No deformity. No pressure ulcers. HEMATOLOGIC: No bleeding or petechial lesions seen. MUSCULOSKELETAL: No joint swelling, erythema, or tenderness. ASSESSMENT: A 74-year-old woman. * Gram negative sepsis. * Urinary tract infection. * Possible cholecystitis. * Acute renal failure. * Dehydration. * Hypokalemia. * Hypertension. * Diabetes mellitus. PLAN: * Continue ____. * Continue nutritional support. * Continue GI prophylaxis. * Continue pain management. * Continue diabetes. * Continue DVT prophylaxis. Thank you for allowing me to participate in the care of this patient. TID: [id number] RECEIPT: [id number]
[2024-12-08 04:40] LABS: NUCLEATED RED BLOOD CELLS 0.0 % (0.0-0.19); PLATELET COUNT (AUTO) 44.0 K/uL (130-400); RED BLOOD CELL COUNT(AUTO) 3.2 MIL/uL (4.50-6.20); RED CELL DISTRIBUTION WIDTH 13.3 % (11.0-15.5); WHITE BLOOD COUNT (AUTO) 7.9 K/uL (4.8-10.8)
[2024-12-08 05:08] LABS: ASPARTATE AMINOTRANSFERASE 44.0 U/L (10-37); CREATININE 1.0 mg/dL (0.5-1.3); GLOMERULAR FILTR. RATE CALC 79.0 mL/min (>90); GLUCOSE,RANDOM 105.0 mg/dL (70-105); SODIUM SERUM 142.0 mmol/L (136-145); TOTAL PROTEIN, SERUM 4.9 g/dL (6.0-8.3); UREA NITROGEN, BLOOD 26.0 mg/dL (7-18)
--- NOTE | 2024-12-08 09:32 | PN ---
INFECTIOUS DISEASE FOLLOWUP NOTE DATE OF SERVICE: 12/06/2024 SUBJECTIVE: The patient is seen and examined at bedside today. The patient denies fever or chills. Tolerating antibiotics. No nausea or vomiting. No sore throat or rhinorrhea. No depression. No suicidal ideation. No bleeding tendency. No rashes are seen. PHYSICAL EXAMINATION: VITAL SIGNS: Temperature 98.2. EYES: No icterus. Pupils are equal and reactive. HENT: No oral thrush seen. Moist oral mucosa. NECK: Supple. No JVD or thyromegaly. LUNGS: Good air entry. No rales. No rhonchi. CARDIOVASCULAR: S1 and S2, regular. No murmur heard. ABDOMEN: Soft, nontender. Bowel sound is present. CENTRAL NERVOUS SYSTEM: Awake, alert, oriented x3. No focal deficits. SKIN: No rashes. No itchiness. LYMPHATIC: No peripheral lymphadenopathy. BACK: No deformity. No pressure ulcers. HEMATOLOGIC: No bleeding or petechial lesions seen. MUSCULOSKELETAL: No joint swelling, erythema, or tenderness. ASSESSMENT: A 74-year-old male with multiple problems including, * Gram negative sepsis. * Urinary tract infection. * Obesity. * Dehydration. * Hypertension. * Diabetes mellitus. PLAN: * Continue meropenem. * Continue nutritional support. * Continue GI prophylaxis. * Continue pain management. * Continue antiemetic. * Continue DVT prophylaxis. * Monitor renal function. TID: [id number] RECEIPT: [id number] [facility]
--- NOTE | 2024-12-08 13:31 | PN ---
[facility] PROGRESS NOTE Date of Service: Dec 08, 2024 Time of Service: 13:26 SUBJECTIVE: 12/05 the patient has been seen and examined at bedside, case discussed with the RN, patient admitted to the ICU, remains on Levophed for blood pressure support, BP 105/44, afebrile, saturating normal on room air. During my visit the patient is alert and oriented x3, he denies chest pain, no shortness a breath, no nausea, no vomiting, no abdominal pain, no diarrhea. WBC slowly trending down, today 12.3, hemoglobin 12.4, hematocrit 34.8, with a platelet count of 76. Stool occult blood positive. Group A strep a rapid test is positive. Total bilirubin of 7.2. MRCP showing cholelithiasis without acute cholecystitis, no biliary obstruction, incidental pancreatic divisum, he per cirrhosis, hepatic steatosis, mild splenomegaly, left renal cortical cyst. HIDA scan no acute cholecystitis. Echocardiogram showing LVEF 55%, left ventricle diastolic function is normal, the right ventricular systolic function is normal, the atria are normal in size, no hemodynamically significant valvular abnormalities, how pericardial effusion. Blood culture positive for Gram-negative rods 2/2 blood sets. Urine culture [id number] CFU, identification and susceptibilities in process. Patient evaluated by GI, recommended EGD for further evaluation. Recommended also colonoscopy. 12/06 patient is seen and examined at bedside, case discussed with the RN, no acute events overnight, the patient off Levophed, hemodynamically stable, afebrile, saturating normal on room air. Results of urine culture positive for E coli. Blood culture positive for Gram-negative rods, pending final identification. Patient to continue broad-spectrum IV antibiotics. HIDA scan no acute cholecystitis. Echocardiogram showing LVEF 55%, left ventricle diastolic function is normal, the right ventricular systolic function is normal, the atria are normal in size, no hemodynamically significant valvular abnormalities, how pericardial effusion. Blood culture positive for Gram-negative rods 2/2 blood sets. Urine culture [id number] CFU, identification and susceptibilities in process. Patient evaluated by GI, recommended EGD for further evaluation. Recommended also colonoscopy. Patient to be downgraded to PCU. 12/07 patient is seen and examined at bedside, downgraded to the medical floor, alert oriented x3 at the time of my visit, he is getting broad-spectrum IV antibiotics, denies chest pain, shortness shortness for breath, no nausea, no vomit. Results of blood culture positive for E coli, urine culture positive for E coli. Continue the patient on broad-spectrum IV antibiotics. Patient with thrombocytopenia, Hematology consultation requested, recommended to transfuse 1 unit of platelets prior to EGD tomorrow by GI. Patient also with a atrial flutter, cardiology consulted, continue the patient on metoprolol tartrate 12.5 mg p.o. b.i.d..May continue anticoagulation if platelets improve. 12/08 patient is undergoing EGD. No new complaints or concerns. No acute events reported overnight. Patient is receiving 1 unit PRBCs due to thrombocytopenia. REVIEW OF SYSTEMS CONSTITUTIONAL: Denies fevers, chills, or night sweats. No unintentional weight loss reported. Complains of generalized body weakness NEUROLOGICAL: Denies headache, amaurosis fugax, motor weakness, sensory deficit, vertigo/spinning sensation, gait abnormalities, or tremors. ENT: No hearing loss, otalgia, otorrhea, rhinitis, rhinorrhea, hoarseness, or sore throat. CARDIOVASCULAR: Denies any exertional angina, dyspnea on exertion, orthopnea, paroxysmal nocturnal dyspnea, palpitations, life-threatening arrhythmias, claudication. PULMONARY: Denies any shortness of breath, cough, phlegm/sputum, hemoptysis, pleuritic chest pain. SLEEP: Denies morning headaches, daytime somnolence or napping. Denies difficulty falling asleep, staying asleep, waking from sleep. Denies knowledge of snoring. GASTROINTESTINAL: Denies any type of dysphagia to either liquids or solids. Denies , pyrosis, early satiety, abdominal pain, diarrhea, constipation, or changes in stool consistency or caliber. Denies coffee-ground emesis, hematemesis, hematochezia, or melanotic stools. Complains of nausea and vomiting GENITOURINARY: Denies frequency, urgency, nocturia, hematuria or incontinence (Storage/Irritative symptoms.) Low urinary stream, straining to void, urinary intermittency or hesitancy, splitting of the voiding stream, terminal dribbling. ENDOCRINOLOGIC: Denies polyuria, polydipsia, polyphagia or heat/cold intolerances. HEMATOLOGIC: Denies thrombophilia/previous clots, or coagulopathy/bleeding disorders. ONCOLOGIC: Denies personal history of malignancy. DERMATOLOGIC: Denies rashes or pruritus. PSYCHIATRIC: Denies any suicidal or homicidal ideation. Denies hallucinations. PHYSICAL EXAM GENERAL APPEARANCE: The patient is awake, alert, and oriented, in no acute cardiopulmonary distress. NEUROLOGICAL: Cranial nerves II-XII grossly intact. Motor is 5/5 in bilateral upper and lower extremities proximal to distal. No sensory deficits. HEENT: Face is symmetric. Pupils are equal and reactive. Extraocular movements are intact. NECK: Supple. No JVD. No thyromegaly. No submental, submandibular, pre- /postauricular, occipital or supraclavicular lymphadenopathy. CHEST: Normal chest expansion. No Telemetry. LUNGS: Absence of any rales, rhonchi or any wheezing. CARDIOVASCULAR: Regular. S1 and S2 normal. No appreciable rubs, murmurs or gallops. ABDOMEN: Soft, nontender, and nondistended. There is no rebound, voluntary guarding, or rigidity. : Deferred. No Mariano. EXTREMITIES: Non-edematous and not cyanotic. No clubbing. Good capillary refill. SKIN: No skin breakdown. Vital Signs (last 8hr) Date Time Temp Pulse Resp B/P (MAP) Pulse Ox O2 Delivery O2 Flow Rate FiO2 12/08/24 11:02 Room Air* 0 21 12/08/24 10:58 98.2 71 20 119/62 100 Room Air 12/08/24 07:47 97.9 71 18 118/59 97 Room Air LABS: Laboratory: Test 12/08/24 10:40 12/08/24 04:26 Range/Units Whole Blood Glucose 102 70-110 MG/DL White Blood Count 7.9 4.8-10.8 K/uL Red Blood Count 3.20 L 4.50-6.20 MIL/uL Hemoglobin 10.3 L 14.0-18.0 g/dL Hematocrit 29.5 L 42-54 % Mean Corpuscular Volume 92.2 79-99 fL Mean Corpuscular Hemoglobin 32.2 27.0-33.0 pg Mean Corpuscular Hemoglobin Concent 34.9 32.0-36.0 g/dL Red Cell Distribution Width 13.3 11.0-15.5 % Platelet Count 44 L 130-400 K/uL Mean Platelet Volume 11.3 H 7.5-10.5 fL Nucleated Red Blood Cells 0.0 0.0-0.19 % Sodium Level 142 136-145 mmol/L Potassium Level 3.8 3.5-5.1 mmol/L Chloride Level 111 101-111 mmol/L Carbon Dioxide Level 23 21-32 mmol/L Blood Urea Nitrogen 26 H 7-18 mg/dL Creatinine 1.0 0.5-1.3 mg/dL Glomerular Filtration Rate Calc 79 >90 mL/min Random Glucose 105 70-105 mg/dL Total Calcium 7.5 L 8.5-10.1 mg/dL Magnesium Level 1.90 1.80-2.40 mg/dL Total Bilirubin 3.2 H 0.2-1.0 mg/dL Aspartate Amino Transf (AST/SGOT) 44 H 10-37 U/L Alanine Aminotransferase (ALT/SGPT) 39 12-78 U/L Alkaline Phosphatase 111 50-136 U/L Total Protein 4.9 L 6.0-8.3 g/dL Albumin 1.5 L 3.5-5.0 g/dL Current Medications Medications (Trade) Dose Ordered Sig/Panchito Route PRN Reason Start Time Stop Time Status Last Admin Dose Admin Acetaminophen (TYLenol 325MG TAB) 650 mg Q4H PRN PO MILD PAIN (1-3) 12/04/24 11:00 12/04/24 10:57 DC Acetaminophen (TYLenol 325MG TAB) 650 mg Q6H PRN PO MILD PAIN (1-3) 12/04/24 11:00 01/03/25 10:59 Acetaminophen (TYLenol 325MG TAB) 650 mg Q6H PRN PO TEMPERATURE GREATER THAN 101.5 12/04/24 11:00 01/03/25 10:59 Al Hydroxide/Mg Hydroxide (MAALox PLUS 30ML) 30 ml Q6H PRN PO INDIGESTION 12/04/24 11:00 01/03/25 10:59 Cefepime HCl (MAXipime 1 GM vial) 1 gm Q12H IVPB 12/05/24 12:00 12/05/24 13:42 DC Cefepime HCl (MAXipime 1 GM vial) 1 gm Q8H IVPB 12/04/24 16:00 12/05/24 06:31 DC 12/05/24 00:15 1 GM Dextrose (D50w) 50 ml AD PRN IV HYPOGLYCEMIA PROTOCOL 12/04/24 11:00 01/03/25 10:59 Diphenhydramine HCl (BENAdryl CAP) 25 mg Q4H PRN PO MILD ITCHING/RASH 12/04/24 11:00 01/03/25 10:59 Famotidine (Pepcid 20mg Vial) 20 mg BID PRN IV NAUSEA/VOMITING 12/04/24 11:00 12/04/24 10:57 DC Famotidine (Pepcid 20mg Vial) 20 mg Q24H IV 12/04/24 21:00 01/03/25 20:59 12/07/24 21:32 20 MG Glucagon (Glucagon 1mg Kit) 1 mg AD PRN IM HYPOGLYCEMIA PROTOCOL 12/04/24 11:00 01/03/25 10:59 Guaifenesin/ Dextromethorphan (RobiTUSSin DM 200/20MG 10ML) 10 ml Q4H PRN PO COUGH 12/04/24 11:00 01/03/25 10:59 Heparin Sodium (Porcine) (HEParin 5,000 UNIT VIAL) 5,000 unit BID SQ 12/04/24 21:00 12/06/24 08:45 DC 12/04/24 22:19 5,000 UNIT Hydralazine HCl (APRESOLine 20MG INJ) 10 mg Q6H PRN IV For:SBP above 160;DBP above 90 12/04/24 11:00 12/04/24 13:13 DC Insulin Human Regular (humuLIN R 100 UNIT/ML 3ML) INSULIN SLIDING SCAL... ACHS SQ 12/04/24 11:30 01/03/25 11:29 12/07/24 12:39 4 UNIT Ketorolac Tromethamine (toRADol) 15 mg Q8H PRN IV MODERATE PAIN (4-6) 12/04/24 11:00 12/09/24 10:59 12/07/24 22:51 15 MG Lactated Ringer's 1,000 ml @ 75 mls/hr [id number] IV 12/06/24 13:00 01/05/25 12:59 12/08/24 08:40 75 MLS/HR Lactated Ringer's (Lactated Ringers 1000ml) 1,000 ml BOLUS STAT IV 12/04/24 07:07 12/04/24 07:14 DC 10/2/25 07:40 1,000 ML Lactulose (Constulose 20gm/ 30ml Udcup) 20 gm BID PRN PO CONSTIPATION 12/04/24 11:00 01/03/25 10:59 Magnesium Sulfate 50 ml @ 0 mls/hr PROTOCOL PRN IV OTHER [SEE ORDER COMMENTS] 12/04/24 11:00 01/03/25 10:59 12/07/24 12:30 20 MLS/HR Meropenem (Merrem 1gm) 1 gm Q12H IVPB 12/05/24 14:00 12/15/24 13:59 12/08/24 02:08 1 GM Metoprolol Tartrate (loprESSOR) 12.5 mg BID PO 12/06/24 21:00 01/05/25 20:59 12/07/24 21:32 12.5 MG Morphine Sulfate (morPHINE 4MG SYG) 1 mg Q4H PRN IVP SEVERE PAIN (7-10) 12/04/24 11:00 12/11/24 10:59 Nitroglycerin (Nitrostat) 0.4 mg PROTOCOL PRN SL CHEST PAIN 12/04/24 11:00 01/03/25 10:59 Norepinephrine 250 ml @ 0 mls/hr PROTOCOL IV 12/04/24 17:17 01/03/25 17:16 12/05/24 14:03 3.09 MLS/HR Norepinephrine 250 ml @ 0 mls/hr PROTOCOL STAT IV 12/04/24 12:14 12/04/24 12:18 DC 12/04/24 13:12 0.1 MLS/HR Ondansetron HCl (zoFRAN 4MG INJ) 4 mg Q6H PRN IV NAUSEA/VOMITING 12/04/24 11:00 01/03/25 10:59 Pharmacy Profile Note (Pharmacy Communication) 1 each ONCE MISC 12/05/24 14:00 12/05/24 13:51 DC Piperacillin Sod/ Tazobactam Sod 50 ml @ 12.5 mls/hr Q8H IV 12/04/24 17:30 12/04/24 21:34 DC 12/04/24 17:09 12.5 MLS/HR Potassium Chloride 100 ml @ 100 mls/hr AD PRN IV POTASSIUM PROTOCOL 12/04/24 11:00 01/03/25 10:59 Potassium Chloride (K-Dur 10meq Sr Tab) 10 meq AD PRN PO POTASSIUM PROTOCOL 12/05/24 07:00 01/03/25 10:59 12/07/24 06:26 10 MEQ Potassium Chloride (K-Dur/Klor-Con 20meq) 10 meq AD PRN PO POTASSIUM PROTOCOL 12/04/24 11:00 12/05/24 06:30 DC Potassium Chloride (KCl 10% Elixir 20meq/15ml) 10 meq AD PRN PO POTASSIUM PROTOCOL 12/04/24 11:00 01/03/25 10:59 12/06/24 11:45 10 MEQ Sodium Chloride 1,000 ml @ 100 mls/hr Q10H IV 12/04/24 11:00 12/06/24 12:47 DC 12/06/24 02:46 100 MLS/HR Vancomycin HCl 250 ml @ 125 mls/hr ONCE IV 12/04/24 11:00 12/04/24 12:59 DC 12/04/24 11:00 125 MLS/HR Vancomycin HCl 250 ml @ 125 mls/hr Q24H IV 12/05/24 11:00 12/05/24 13:42 DC 12/05/24 11:57 125 MLS/HR Zolpidem Tartrate (AmbIEN) 5 mg HS PRN PO INSOMNIA 12/04/24 11:00 01/03/25 10:59 DIAGNOSTICS / RADIOLOGY: [ ] ASSESSMENT: Septic shock, POA bacteremia due to E coli, POA UTI due to E coli, POA Generalized body weakness POA Intractable nausea and vomiting POA Acute kidney injury POA Acute dehydration POA Right flank pain POA Left intrahepatic biliary duct measuring [address] ultrasound abdomen POA Cholelithiasis per ultrasound abdomen POA Fatty liver per CT abdomen/pelvis POA Umbilical hernia per CT abdomen/pelvis POA Moderate degenerative disc disease of the spine per CT abdomen/pelvis POA Uncontrolled diabetes mellitus type 2 with hypoglycemia POA Hypotension POA Acute complicated cystitis POA Acute multifactorial anemia POA Hyperlipidemia POA Obesity POA History of polyp removal History of extended right colectomy with ileocolic anastomosis thrombocytopenia PLAN: Results of blood culture positive for E coli, urine culture positive for E coli. Continue the patient on broad-spectrum IV antibiotics. Patient with thrombocytopenia, Hematology consultation requested, recommended to transfuse 1 unit of platelets prior to EGD tomorrow by GI. Patient also with a atrial flutter, cardiology consulted, continue the patient on metoprolol tartrate 12.5 mg p.o. b.i.d..May continue anticoagulation if platelets improve. NEURO: Minimize central acting medications as possible. Fall Precautions. Well lighted room through the day and minimize interruptions through the night to prevent acute delirium. PULMONARY: Supplemental 02 as needed BiPAP as necessary, for respiratory distress Titrate Fio2 to keep Spo2 > or = 90% DuoNebs and CPT as needed IS hourly while awake for pulmonary hygiene prn Out of bed to chair as tolerated Maintain aspiration precautions at all times CARDIOVASCULAR: Follow hemodynamics. Vital signs per facility protocol Follow up with Cardiology, appreciate recommendations -continue beta-raheel -anticoagulation once platelets improved GI & NUTRITION: Continue nutritional support Aspirations precautions Prokinetic agents and laxatives as needed Follow up with GI post EGD KIDNEYS & ELECTROLYTES: Strict monitoring of intake and output Daily weights Avoid nephrotoxic agents Monitor electrolytes and replace as needed Goal urine output of 30mL/hr or 0.5mL/kg/hr Medications to be dosed according to renal function. Avoid contrast if possible ENDOCRINE: Maintain blood glucose between 100-180 at all times. Insulin sliding scale for blood glucose management Hypoglycemia and hyperglycemia protocol in place INFECTIOUS DISEASE: Trend temperature, WBC Follow cultures, deescalate antibiotics as soon as possible. Follow up With the Infectious Disease regarding antibiotic disposition HEMATOLOGY & COAGULATION: Monitor H&H. Keep Hgb > 7 Transfuse 1 unit of PRBC for Hgb < 7 Transfuse 1 pack of platelets of platelets < 20, 000 Watch for any signs and symptoms of bleeding SKIN: Pressure ulcer prevention per facility protocol Specialty mattress as needed ORTHO/REHAB Continue PT/OT PRN: MEDICATIONS Tylenol 650 mg po every 4 hrs for fever zofran 4 mg IV every 6 hrs for n/v Hydralazine 5 mg IV every 4 hrs systolic pressure > 160 bowel regiment: lactulose 20 gm PO BID PRN constipation Supportive measures: Continue GI and DVT prophylaxis All questions answered time spent: > 35 min ADALBERTO WHARTON IV, MD Dec 08, 2024 13:31
[2024-12-08] MEDS ORDERED: LIDOCAINE PF 100MG/5ML (2%) SYRINGE 5ML ONE (14:19)
--- NOTE | 2024-12-08 14:59 | PN ---
INFECTIOUS DISEASE PROGRESS NOTE Date of Service: Dec 08, 2024 SUBJECTIVE: This is a 74-year-old male patient who was seen and examined at bedside in room 314. No fever this morning, temperature is 98.2. Patient is scheduled for EGD for today. We will continue on Meropenem for bacteremia urinary tract infection. No reports of nausea or vomiting. We will continue to follow patient's care. PHYSICAL EXAM EYES: Anicteric. Pupils equal and reactive. HENT: No oral thrush seen, moist Oral mucosa NECK: Supple, no JVD or thyromegaly. LUNGS: Good air entry. No rales, no rhonchi. CARDIOVASCULAR: S1, S2 regular. No murmur heard. ABDOMEN: Soft and normal bowel sounds. CENTRAL NERVOUS SYSTEM: Awake, alert, oriented x 3. SKIN: No rashes, no swelling. LYMPHATICS: No peripheral lymphadenopathy. MUSCULOSKELETAL: No joint swelling, erythema or tenderness. EXTREMITIES: No cyanosis or clubbing. Generalized weakness. BACK: No deformity, no pressure ulcer. GENITOURINARY: No dysuria or hematuria. Vital Sign (Last 12 Hours) 12/08/24 12/08/24 12/08/24 12/08/24 04:00 07:47 10:58 11:02 Temp 97.9 97.9 98.2 Pulse 73 71 71 Resp 20 18 20 B/P (MAP) 119/64 118/59 119/62 Pulse Ox 95 97 100 O2 Delivery Room Air Room Air Room Air Room Air* O2 Flow Rate 0 FiO2 21 12/08/24 12/08/24 12/08/24 14:40 14:45 14:50 Temp 97.9 Pulse 85 82 85 Resp 20 18 20 B/P (MAP) 101/50 105/54 109/56 Pulse Ox 99 99 99 O2 Delivery Nasal Cannula Nasal Cannula Nasal Cannula O2 Flow Rate 3.0 3.0 3.0 Intake & Output (last 24hrs) 12/07/24 12/07/24 12/08/24 15:00 23:00 07:00 Intake Total 700.0 ml Output Total 125 ml 625 ml Balance -125 ml -625 ml 700.0 ml LABS: Laboratory: Test 12/08/24 10:40 12/08/24 04:26 Range/Units Whole Blood Glucose 102 70-110 MG/DL White Blood Count 7.9 4.8-10.8 K/uL Red Blood Count 3.20 L 4.50-6.20 MIL/uL Hemoglobin 10.3 L 14.0-18.0 g/dL Hematocrit 29.5 L 42-54 % Mean Corpuscular Volume 92.2 79-99 fL Mean Corpuscular Hemoglobin 32.2 27.0-33.0 pg Mean Corpuscular Hemoglobin Concent 34.9 32.0-36.0 g/dL Red Cell Distribution Width 13.3 11.0-15.5 % Platelet Count 44 L 130-400 K/uL Mean Platelet Volume 11.3 H 7.5-10.5 fL Nucleated Red Blood Cells 0.0 0.0-0.19 % Sodium Level 142 136-145 mmol/L Potassium Level 3.8 3.5-5.1 mmol/L Chloride Level 111 101-111 mmol/L Carbon Dioxide Level 23 21-32 mmol/L Blood Urea Nitrogen 26 H 7-18 mg/dL Creatinine 1.0 0.5-1.3 mg/dL Glomerular Filtration Rate Calc 79 >90 mL/min Random Glucose 105 70-105 mg/dL Total Calcium 7.5 L 8.5-10.1 mg/dL Magnesium Level 1.90 1.80-2.40 mg/dL Total Bilirubin 3.2 H 0.2-1.0 mg/dL Aspartate Amino Transf (AST/SGOT) 44 H 10-37 U/L Alanine Aminotransferase (ALT/SGPT) 39 12-78 U/L Alkaline Phosphatase 111 50-136 U/L Total Protein 4.9 L 6.0-8.3 g/dL Albumin 1.5 L 3.5-5.0 g/dL DIAGNOSTICS / RADIOLOGY: PATIENT: OSITO MONTEZ ACCT: [id number] LOC: [facility] U: [id number] AGE/SX: 74/M ROOM: [facility] RE12/04/[address]: LINDA RUIZ MD : 1950 BED: 1 DIS: STATUS: ADM IN TLOC: SPEC: [id number] LADARIUS: 12/04/24 STATUS: COMP REQ: [id number] RECD: 12/05/[address] [facility] [address]: JC DIALLO MD SOURCE: [facility] [place] ENTR: 12/05/[address] [facility] [address]: SUSIE ARNDT MD SPDESC: CLEAN CAT SELF,REFERRAL ORDERED: AERO ID & SENS ----- ------- Procedure Result María Date-Time AEROBIC ID & SENSITIVITIES Final 12/06/24 [facility] COLONY DESCRIPTION: DAY 1: COLONY COUNT: 10,000 - 20,000 CFU/ML GRAM NEGATIVE RODS IDENTIFICATION AND SENSITIVITY TO FOLLOW DAY 2: NO FURTHER WORK-UP DONE ESCHERICHIA COLI E COLI M.I.C. RX --------- ---- AMPICILLIN <=8 S AZTREONAM <=4 S CEFAZOLIN <=2 S CEFTAZIDIME/AVIBACTAM <=8 S GENTAMICIN <=2 S LEVOFLOXACIN <=0.5 S NITROFURANTOIN <=32 S MEROPENEM <=1 S PIPERACILLIN/TAZOBACTAM <=8 S TRIMETHOPRIM/SUFLAMETHOXAZOLE <=2/38 S PATIENT: OSITO MONTEZ ACCT: [id number] LOC: [facility] U: [id number] AGE/SX: 74/M ROOM: [facility] RE12/04/[address]: LINDA RUIZ MD : 1950 BED: 1 DIS: STATUS: ADM IN TLOC: SPEC: [id number] LADARIUS: 12/04/24 STATUS: COMP REQ: [id number] RECD: 12/05/[address]: LEIGH ANN KYLE APRN SOURCE: BLOOD ENTR: 12/05/[address]: WEI MCCLELLAND MD SPDC: BLOOD SUSIE ARNDT MD SELF,REFERRAL ORDERED: AERO ID & SENS Procedure Result María Date-Time AEROBIC ID & SENSITIVITIES Final 12/07/24-617 [facility] COLONY DESCRIPTION: DAY 1: GRAM NEGATIVE RODS AEROBIC BOTTLE IDENTIFICATION AND SENSITIVITY TO FOLLOW DAY 2: NO FURTHER WORK-UP DONE ESCHERICHIA COLI E COLI M.I.C. RX --------- ---- AMPICILLIN <=8 S AZTREONAM <=4 S CEFAZOLIN <=2 S CEFTAZIDIME/AVIBACTAM <=8 S GENTAMICIN <=2 S LEVOFLOXACIN <=0.5 S MEROPENEM <=1 S PIPERACILLIN/TAZOBACTAM <=8 S TRIMETHOPRIM/SUFLAMETHOXAZOLE <=2/38 S ASSESSMENT: E Coli bacteremia. Urinary tract infection with E coli. Sepsis. Streptococcus pharyngitis. Cholecystitis, ruled out. Leukocytosis, resolved. Thrombocytopenia. Acute renal failure, resolved. Dehydration. Diabetes mellitus. PLAN: Continue Meropenem. Continue GI prophylaxis. Continue pain management. Continue antidiabetics. Avoid nephrotoxic medications. This case was reviewed and discussed with my supervising physician Dr. Espinosa and the above assessment and plan was formulated and agreed upon. ATTESTATION BY PHYSICIAN I have seen and examined the patient. I reviewed the documentation, medical deci andrew making, and treatment plan as noted by the mid-level provider above. I agree with the findings and plan of care. MAURICIO ESPINOSA MD, [facility]TA [facility] Dec 08, 2024 14:59
--- NOTE | 2024-12-08 15:15 | NUR ---
arrived from recovery vitals stable, alert and oriented, family at bedside, room air, denies pain at this time
--- NOTE | 2024-12-08 16:14 | PN ---
A 74-year-old male with diabetes mellitus, hypertension, obesity, presented to the hospital with nausea and vomiting and mild body weakness. The patient also complained of fever. T-max in the emergency room was 100.8. Imaging has been done. The patient's gallbladder is dilated. The patient is scheduled to undergo MRCP which has been done but pending official report. The patient also found positive for Streptococcal pharyngitis. PHYSICAL EXAMINATION: VITAL SIGNS: There is no fever. Temperature 98.4, pulse 85, respiratory rate 18, blood pressure 130/86. EYES: No icterus. No conjunctival hemorrhage. HENT: No oral thrush seen. Moist oral mucosa. NECK: Supple. No JVD or thyromegaly. LUNGS: Good air entry. No rales, no rhonchi. CARDIOVASCULAR: S1 and S2. Regular. No murmur heard. ABDOMEN: Soft. Bowel sound is present. CENTRAL NERVOUS SYSTEM: Awake, alert, oriented x3. No focal deficits. SKIN: No rashes. LYMPHATIC: No peripheral lymphadenopathy. MUSCULOSKELETAL: No joint swelling. There is mild tenderness. ASSESSMENT: 1. Anemia. Hemoglobin level 10.3 g/deciliter 2. Gram negative sepsis. 3. Urinary tract infection. 4. Possible cholecystitis. 5. Acute renal failure. 6. Hypertension. 7. betes mellitus. 8. Thrombocytopenia Plan 1. Peripheral blood smear showed red blood cells to be normocytic normochromic. There was no fragment cell or schistocyte. There is no teardrop cell. There is no rouleaux phenomena. There is no pelger-Huet cell. White blood cell with no blasts. There is decreased platelet number. There is large platelet consistent with peripheral consumption of the platelet. 2. There was hypersegmented neutrophils. This patient to be started on folic acid 1 mg p.o. daily and vitamin B12 1000 mcg p.o. daily. 3. This patient platelet most likely due to cirrhosis of the liver and splenomegaly. Platelet count is 52K. There is no need for platelet transfusion. 4. Patient is going for EGD. We will give her 1 unit of single donor platelet before procedure 5. Will follow-up with the result. Vitals/Labs Vital Signs Date Time Temp Pulse Resp B/P (MAP) Pulse Ox O2 Delivery O2 Flow Rate FiO2 12/08/24 15:15 98.1 84 16 129/69 94 Room Air 12/08/24 14:50 3.0 12/08/24 11:02 21 Laboratory Tests 12/08/24 04:26 Medications Current Medications Ondansetron HCl 4 mg ONCE ONCE IVP Last administered on 12/04/24at 07:40; Start 12/04/24 at 07:30; Stop 12/04/24 at 07:31; Status DC Lactated Ringer's 1,000 ml BOLUS STAT IV Last administered on 12/04/24at 07:40; Start 12/04/24 at 07:07; Stop 12/04/24 at 07:14; Status DC Acetaminophen 1,000 mg ONCE ONCE PO Last administered on 12/04/24at 08:29; Start 12/04/24 at 08:30; Stop 12/04/24 at 08:31; Status DC Piperacillin Sod/ Tazobactam Sod 3.375 gm ONCE ONCE IV Last administered on 12/04/24at 09:35; Start 12/04/24 at 09:30; Stop 12/04/24 at 09:31; Status DC Sodium Chloride 1,000 ml @ 125 mls/hr ONCE ONCE IV Last administered on 12/04/24at 09:35; Start 12/04/24 at 09:30; Stop 12/04/24 at 17:29; Status DC Insulin Human Regular INSULIN SLIDING SCAL... ACHS SQ Last administered on 12/07/24at 12:39; Start 12/04/24 at 11:30; Stop 01/03/25 at 11:29 Dextrose 50 ml AD PRN IV; Start 12/04/24 at 11:00; Stop 01/03/25 at 10:59 Glucagon 1 mg AD PRN IM; Start 12/04/24 at 11:00; Stop 01/03/25 at 10:59 Potassium Chloride 100 ml @ 100 mls/hr AD PRN IV; Start 12/04/24 at 11:00; Stop 01/03/25 at 10:59 Potassium Chloride 10 meq AD PRN PO Last administered on 12/06/24at 11:45; Start 12/04/24 at 11:00; Stop 01/03/25 at 10:59 Potassium Chloride 10 meq AD PRN PO; Start 12/04/24 at 11:00; Stop 12/05/24 at 06:30; Status DC Magnesium Sulfate 50 ml @ 0 mls/hr PROTOCOL PRN IV Last administered on 12/07/24at 12:30; Start 12/04/24 at 11:00; Stop 01/03/25 at 10:59 Diphenhydramine HCl 25 mg Q4H PRN PO; Start 12/04/24 at 11:00; Stop 01/03/25 at 10:59 Acetaminophen 650 mg Q6H PRN PO; Start 12/04/24 at 11:00; Stop 01/03/25 at 10:59 Acetaminophen 650 mg Q4H PRN PO; Start 12/04/24 at 11:00; Stop 12/04/24 at 10:57; Status DC Ondansetron HCl 4 mg Q6H PRN IV; Start 12/04/24 at 11:00; Stop 01/03/25 at 10:59 Zolpidem Tartrate 5 mg HS PRN PO; Start 12/04/24 at 11:00; Stop 01/03/25 at 10:59 Al Hydroxide/Mg Hydroxide 30 ml Q6H PRN PO; Start 12/04/24 at 11:00; Stop 01/03/25 at 10:59 Lactulose 20 gm BID PRN PO; Start 12/04/24 at 11:00; Stop 01/03/25 at 10:59 Nitroglycerin 0.4 mg PROTOCOL PRN SL; Start 12/04/24 at 11:00; Stop 01/03/25 at 10:59 Guaifenesin/ Dextromethorphan 10 ml Q4H PRN PO; Start 12/04/24 at 11:00; Stop 01/03/25 at 10:59 Famotidine 20 mg BID PRN IV; Start 12/04/24 at 11:00; Stop 12/04/24 at 10:57; Status DC Heparin Sodium (Porcine) 5,000 unit BID SQ Last administered on 12/04/24at 22:19; Start 12/04/24 at 21:00; Stop 12/06/24 at 08:45; Status DC Acetaminophen 650 mg Q6H PRN PO; Start 12/04/24 at 11:00; Stop 01/03/25 at 10:59 Ketorolac Tromethamine 15 mg Q8H PRN IV Last administered on 12/07/24at 22:51; Start 12/04/24 at 11:00; Stop 12/09/24 at 10:59 Morphine Sulfate 1 mg Q4H PRN IVP; Start 12/04/24 at 11:00; Stop 12/11/24 at 10:59 Vancomycin HCl 250 ml @ 125 mls/hr ONCE IV Last administered on 12/04/24at 11:00; Start 12/04/24 at 11:00; Stop 12/04/24 at 12:59; Status DC Piperacillin Sod/ Tazobactam Sod 50 ml @ 12.5 mls/hr Q8H IV Last administered on 12/04/24at 17:09; Start 12/04/24 at 17:30; Stop 12/04/24 at 21:34; Status DC Sodium Chloride 1,000 ml @ 100 mls/hr Q10H IV Last administered on 12/06/24at 02:46; Start 12/04/24 at 11:00; Stop 12/06/24 at 12:47; Status DC Hydralazine HCl 10 mg Q6H PRN IV; Start 12/04/24 at 11:00; Stop 12/04/24 at 13:13; Status DC Famotidine 20 mg Q24H IV Last administered on 12/07/24at 21:32; Start 12/04/24 at 21:00; Stop 12/08/24 at 15:45; Status DC Vancomycin HCl 250 ml @ 125 mls/hr Q24H IV Last administered on 12/05/24at 11:57; Start 12/05/24 at 11:00; Stop 12/05/24 at 13:42; Status DC Norepinephrine 250 ml @ 0 mls/hr PROTOCOL STAT IV Last administered on 12/04/24at 13:12; Start 12/04/24 at 12:14; Stop 12/04/24 at 12:18; Status DC Gadoterate Meglumine 10 mmol STK-MED ONCE IV; Start 12/04/24 at 12:59; Stop 12/04/24 at 12:59; Status DC Cefepime HCl 1 gm Q8H IVPB Last administered on 12/05/24at 00:15; Start 12/04/24 at 16:00; Stop 12/05/24 at 06:31; Status DC Norepinephrine 250 ml @ 0 mls/hr PROTOCOL IV Last administered on 12/05/24at 14:03; Start 12/04/24 at 17:17; Stop 01/03/25 at 17:16 Potassium Chloride 10 meq AD PRN PO Last administered on 12/07/24at 06:26; Start 12/05/24 at 07:00; Stop 01/03/25 at 10:59 Cefepime HCl 1 gm Q12H IVPB; Start 12/05/24 at 12:00; Stop 12/05/24 at 13:42; Status DC Pharmacy Profile Note 1 each ONCE MISC; Start 12/05/24 at 14:00; Stop 12/05/24 at 13:51; Status DC Meropenem 1 gm Q12H IVPB Last administered on 12/08/24at 02:08; Start 12/05/24 at 14:00; Stop 12/15/24 at 13:59 Lactated Ringer's 1,000 ml @ 75 mls/hr [id number] IV Last administered on 12/08/24at 08:40; Start 12/06/24 at 13:00; Stop 01/05/25 at 12:59 Acetaminophen 650 mg ONCE ONCE PO Last administered on 12/06/24at 13:02; Start 12/06/24 at 13:00; Stop 12/06/24 at 13:01; Status DC Metoprolol Tartrate 12.5 mg BID PO Last administered on 12/07/24at 21:32; Start 12/06/24 at 21:00; Stop 01/05/25 at 20:59 Potassium Chloride 40 meq ONCE ONCE PO Last administered on 12/07/24at 08:45; Start 12/07/24 at 08:00; Stop 12/07/24 at 08:01; Status DC Potassium Chloride 100 ml @ 50 mls/hr ONCE ONCE IV Last administered on 12/07/24at 08:45; Start 12/07/24 at 08:00; Stop 12/07/24 at 09:59; Status DC Propofol 200 mg STK-MED ONCE IV; Start 12/08/24 at 14:19; Stop 12/08/24 at 14:19; Status DC Lidocaine HCl 100 mg STK-MED ONCE .ROUTE; Start 12/08/24 at 14:19; Stop 12/08/24 at 14:20; Status DC Pantoprazole Sodium 40 mg DAILY PO; Start 12/09/24 at 09:00; Stop 01/08/25 at 08:59 STEVEN SINCLAIR MD Dec 08, 2024 16:14
[2024-12-09] VITALS (7 sets, daily range): BP systolic 124–146; BP diastolic 62–80; PULSE 62–105; RESP 16–22; TEMP 98.1–99.6; O2SAT 97–98
[2024-12-09 05:37] LABS: NUCLEATED RED BLOOD CELLS 0.0 % (0.0-0.19); PLATELET COUNT (AUTO) 70.0 K/uL (130-400); RED BLOOD CELL COUNT(AUTO) 3.14 MIL/uL (4.50-6.20); RED CELL DISTRIBUTION WIDTH 13.2 % (11.0-15.5); WHITE BLOOD COUNT (AUTO) 7.1 K/uL (4.8-10.8)
[2024-12-09 06:03] LABS: CREATININE 0.8 mg/dL (0.5-1.3); GLOMERULAR FILTR. RATE CALC 93.0 mL/min (>90); GLUCOSE,RANDOM 84.0 mg/dL (70-105); SODIUM SERUM 141.0 mmol/L (136-145); UREA NITROGEN, BLOOD 23.0 mg/dL (7-18)
--- NOTE | 2024-12-09 11:07 | PN ---
[facility] PROGRESS NOTE Date of Service: Dec 09, 2024 Time of Service: 11:00 SUBJECTIVE: 12/05 the patient has been seen and examined at bedside, case discussed with the RN, patient admitted to the ICU, remains on Levophed for blood pressure support, BP 105/44, afebrile, saturating normal on room air. During my visit the patient is alert and oriented x3, he denies chest pain, no shortness a breath, no nausea, no vomiting, no abdominal pain, no diarrhea. WBC slowly trending down, today 12.3, hemoglobin 12.4, hematocrit 34.8, with a platelet count of 76. Stool occult blood positive. Group A strep a rapid test is positive. Total bilirubin of 7.2. MRCP showing cholelithiasis without acute cholecystitis, no biliary obstruction, incidental pancreatic divisum, he per cirrhosis, hepatic steatosis, mild splenomegaly, left renal cortical cyst. HIDA scan no acute cholecystitis. Echocardiogram showing LVEF 55%, left ventricle diastolic function is normal, the right ventricular systolic function is normal, the atria are normal in size, no hemodynamically significant valvular abnormalities, how pericardial effusion. Blood culture positive for Gram-negative rods 2/2 blood sets. Urine culture [id number] CFU, identification and susceptibilities in process. Patient evaluated by GI, recommended EGD for further evaluation. Recommended also colonoscopy. 12/06 patient is seen and examined at bedside, case discussed with the RN, no acute events overnight, the patient off Levophed, hemodynamically stable, afebrile, saturating normal on room air. Results of urine culture positive for E coli. Blood culture positive for Gram-negative rods, pending final identification. Patient to continue broad-spectrum IV antibiotics. HIDA scan no acute cholecystitis. Echocardiogram showing LVEF 55%, left ventricle diastolic function is normal, the right ventricular systolic function is normal, the atria are normal in size, no hemodynamically significant valvular abnormalities, how pericardial effusion. Blood culture positive for Gram-negative rods 2/2 blood sets. Urine culture [id number] CFU, identification and susceptibilities in process. Patient evaluated by GI, recommended EGD for further evaluation. Recommended also colonoscopy. Patient to be downgraded to PCU. 12/07 patient is seen and examined at bedside, downgraded to the medical floor, alert oriented x3 at the time of my visit, he is getting broad-spectrum IV antibiotics, denies chest pain, shortness shortness for breath, no nausea, no vomit. Results of blood culture positive for E coli, urine culture positive for E coli. Continue the patient on broad-spectrum IV antibiotics. Patient with thrombocytopenia, Hematology consultation requested, recommended to transfuse 1 unit of platelets prior to EGD tomorrow by GI. Patient also with a atrial flutter, cardiology consulted, continue the patient on metoprolol tartrate 12.5 mg p.o. b.i.d. May continue anticoagulation if platelets improve. 12/08 patient is undergoing EGD. No new complaints or concerns. No acute events reported overnight. Patient is receiving 1 unit PRBCs due to thrombocytopenia. 12/09 patient underwent EGD yesterday gastritis and small esophageal varice. Complications reported. No new complaints or concerns. This morning the alexander ramírez began to shaver in his temperature began to rise and was given Tylenol. He was also pancultured. REVIEW OF SYSTEMS CONSTITUTIONAL: Denies fevers, chills, or night sweats. No unintentional weight loss reported. Complains of generalized body weakness NEUROLOGICAL: Denies headache, amaurosis fugax, motor weakness, sensory deficit, vertigo/spinning sensation, gait abnormalities, or tremors. ENT: No hearing loss, otalgia, otorrhea, rhinitis, rhinorrhea, hoarseness, or sore throat. CARDIOVASCULAR: Denies any exertional angina, dyspnea on exertion, orthopnea, paroxysmal nocturnal dyspnea, palpitations, life-threatening arrhythmias, claudication. PULMONARY: Denies any shortness of breath, cough, phlegm/sputum, hemoptysis, pl euritic chest pain. SLEEP: Denies morning headaches, daytime somnolence or napping. Denies difficulty falling asleep, staying asleep, waking from sleep. Denies knowledge of snoring. GASTROINTESTINAL: Denies any type of dysphagia to either liquids or solids. Denies , pyrosis, early satiety, abdominal pain, diarrhea, constipation, or changes in stool consistency or caliber. Denies coffee-ground emesis, hematemesis, hematochezia, or melanotic stools. Complains of nausea and vomiting GENITOURINARY: Denies frequency, urgency, nocturia, hematuria or incontinence (Storage/Irritative symptoms.) Low urinary stream, straining to void, urinary intermittency or hesitancy, splitting of the voiding stream, terminal dribbling. ENDOCRINOLOGIC: Denies polyuria, polydipsia, polyphagia or heat/cold intolerances. HEMATOLOGIC: Denies thrombophilia/previous clots, or coagulopathy/bleeding disorders. ONCOLOGIC: Denies personal history of malignancy. DERMATOLOGIC: Denies rashes or pruritus. PSYCHIATRIC: Denies any suicidal or homicidal ideation. Denies hallucinations. PHYSICAL EXAM GENERAL APPEARANCE: The patient is awake, alert, and oriented, in no acute cardiopulmonary distress. NEUROLOGICAL: Cranial nerves II-XII grossly intact. Motor is 5/5 in bilateral upper and lower extremities proximal to distal. No sensory deficits. HEENT: Face is symmetric. Pupils are equal and reactive. Extraocular movements are intact. NECK: Supple. No JVD. No thyromegaly. No submental, submandibular, pre- /postauricular, occipital or supraclavicular lymphadenopathy. CHEST: Normal chest expansion. No Telemetry. LUNGS: Absence of any rales, rhonchi or any wheezing. CARDIOVASCULAR: Regular. S1 and S2 normal. No appreciable rubs, murmurs or gallops. ABDOMEN: Soft, nontender, and nondistended. There is no rebound, voluntary guarding, or rigidity. : Deferred. No Mariano. EXTREMITIES: Non-edematous and not cyanotic. No clubbing. Good capillary refill. SKIN: No skin breakdown. Vital Signs (last 8hr) Date Time Temp Pulse Resp B/P (MAP) Pulse Ox O2 Delivery O2 Flow Rate FiO2 12/09/24 08:14 98 Room Air* 0 21 12/09/24 07:53 98.1 69 18 135/65 98 Room Air 12/09/24 03:59 98.2 62 20 132/62 98 Room Air LABS: Laboratory: Test 12/09/24 05:24 12/09/24 05:20 12/08/24 04:26 Range/Units Whole Blood Glucose 83 70-110 MG/DL White Blood Count 7.1 4.8-10.8 K/uL Red Blood Count 3.14 L 4.50-6.20 MIL/uL Hemoglobin 10.5 L 14.0-18.0 g/dL Hematocrit 28.7 L 42-54 % Mean Corpuscular Volume 91.4 79-99 fL Mean Corpuscular Hemoglobin 33.4 H 27.0-33.0 pg Mean Corpuscular Hemoglobin Concent 36.6 H 32.0-36.0 g/dL Red Cell Distribution Width 13.2 11.0-15.5 % Platelet Count 70 #L 130-400 K/uL Mean Platelet Volume 10.6 H 7.5-10.5 fL Nucleated Red Blood Cells 0.0 0.0-0.19 % Sodium Level 141 136-145 mmol/L Potassium Level 3.6 3.5-5.1 mmol/L Chloride Level 110 101-111 mmol/L Carbon Dioxide Level 22 21-32 mmol/L Blood Urea Nitrogen 23 H 7-18 mg/dL Creatinine 0.8 0.5-1.3 mg/dL Glomerular Filtration Rate Calc 93 >90 mL/min Random Glucose 84 70-105 mg/dL Total Calcium 7.4 L 8.5-10.1 mg/dL Magnesium Level 1.90 1.80-2.40 mg/dL Total Bilirubin 3.2 H 0.2-1.0 mg/dL Aspartate Amino Transf (AST/SGOT) 44 H 10-37 U/L Alanine Aminotransferase (ALT/SGPT) 39 12-78 U/L Alkaline Phosphatase 111 50-136 U/L Total Protein 4.9 L 6.0-8.3 g/dL Albumin 1.5 L 3.5-5.0 g/dL Current Medications Medications (Trade) Dose Ordered Sig/Panchito Route PRN Reason Start Time Stop Time Status Last Admin Dose Admin Acetaminophen (TYLenol 325MG TAB) 650 mg Q4H PRN PO MILD PAIN (1-3) 12/04/24 11:00 12/04/24 10:57 DC Acetaminophen (TYLenol 325MG TAB) 650 mg Q6H PRN PO MILD PAIN (1-3) 12/04/24 11:00 01/03/25 10:59 12/09/24 10:16 650 MG Acetaminophen (TYLenol 325MG TAB) 650 mg Q6H PRN PO TEMPERATURE GREATER THAN 101.5 12/04/24 11:00 01/03/25 10:59 Al Hydroxide/Mg Hydroxide (MAALox PLUS 30ML) 30 ml Q6H PRN PO INDIGESTION 12/04/24 11:00 01/03/25 10:59 Cefepime HCl (MAXipime 1 GM vial) 1 gm Q12H IVPB 10/3/25 12:00 12/05/24 13:42 DC Cefepime HCl (MAXipime 1 GM vial) 1 gm Q8H IVPB 12/04/24 16:00 12/05/24 06:31 DC 12/05/24 00:15 1 GM Dextrose (D50w) 50 ml AD PRN IV HYPOGLYCEMIA PROTOCOL 12/04/24 11:00 01/03/25 10:59 Diphenhydramine HCl (BENAdryl CAP) 25 mg Q4H PRN PO MILD ITCHING/RASH 12/04/24 11:00 01/03/25 10:59 Famotidine (Pepcid 20mg Vial) 20 mg BID PRN IV NAUSEA/VOMITING 12/04/24 11:00 12/04/24 10:57 DC Famotidine (Pepcid 20mg Vial) 20 mg Q24H IV 12/04/24 21:00 12/08/24 15:45 DC 12/07/24 21:32 20 MG Glucagon (Glucagon 1mg Kit) 1 mg AD PRN IM HYPOGLYCEMIA PROTOCOL 12/04/24 11:00 01/03/25 10:59 Guaifenesin/ Dextromethorphan (RobiTUSSin DM 200/20MG 10ML) 10 ml Q4H PRN PO COUGH 12/04/24 11:00 01/03/25 10:59 Heparin Sodium (Porcine) (HEParin 5,000 UNIT VIAL) 5,000 unit BID SQ 12/04/24 21:00 12/06/24 08:45 DC 12/04/24 22:19 5,000 UNIT Hydralazine HCl (APRESOLine 20MG INJ) 10 mg Q6H PRN IV For:SBP above 160;DBP above 90 12/04/24 11:00 12/04/24 13:13 DC Insulin Human Regular (humuLIN R 100 UNIT/ML 3ML) INSULIN SLIDING SCAL... ACHS SQ 12/04/24 11:30 01/03/25 11:29 12/07/24 12:39 4 UNIT Ketorolac Tromethamine (toRADol) 15 mg Q8H PRN IV MODERATE PAIN (4-6) 12/04/24 11:00 12/09/24 10:59 DC 12/08/24 20:20 15 MG Lactated Ringer's 1,000 ml @ 75 mls/hr [id number] IV 12/06/24 13:00 01/05/25 12:59 12/09/24 08:10 75 MLS/HR Lactated Ringer's (Lactated Ringers 1000ml) 1,000 ml BOLUS STAT IV 12/04/24 07:07 12/04/24 07:14 DC 12/04/24 07:40 1,000 ML Lactulose (Constulose 20gm/ 30ml Udcup) 20 gm BID PRN PO CONSTIPATION 12/04/24 11:00 01/03/25 10:59 Magnesium Sulfate 50 ml @ 0 mls/hr PROTOCOL PRN IV OTHER [SEE ORDER COMMENTS] 12/04/24 11:00 01/03/25 10:59 12/07/24 12:30 20 MLS/HR Meropenem (Merrem 1gm) 1 gm Q12H IVPB 12/05/24 14:00 12/15/24 13:59 12/09/24 02:32 1 GM Metoprolol Tartrate (loprESSOR) 12.5 mg BID PO 12/06/24 21:00 01/05/25 20:59 12/09/24 08:09 12.5 MG Morphine Sulfate (morPHINE 4MG SYG) 1 mg Q4H PRN IVP SEVERE PAIN (7-10) 12/04/24 11:00 12/11/24 10:59 12/08/24 17:34 1 MG Nitroglycerin (Nitrostat) 0.4 mg PROTOCOL PRN SL CHEST PAIN 12/04/24 11:00 01/03/25 10:59 Norepinephrine 250 ml @ 0 mls/hr PROTOCOL IV 12/04/24 17:17 01/03/25 17:16 12/05/24 14:03 3.09 MLS/HR Norepinephrine 250 ml @ 0 mls/hr PROTOCOL STAT IV 12/04/24 12:14 12/04/24 12:18 DC 12/04/24 13:12 0.1 MLS/HR Ondansetron HCl (zoFRAN 4MG INJ) 4 mg Q6H PRN IV NAUSEA/VOMITING 12/04/24 11:00 01/03/25 10:59 Pantoprazole Sodium (PROTonix 40MG TAB) 40 mg DAILY PO 12/09/24 09:00 01/08/25 08:59 12/09/24 08:09 40 MG Pharmacy Profile Note (Pharmacy Communication) 1 each ONCE MISC 12/05/24 14:00 12/05/24 13:51 DC Piperacillin Sod/ Tazobactam Sod 50 ml @ 12.5 mls/hr Q8H IV 12/04/24 17:30 12/04/24 21:34 DC 12/04/24 17:09 12.5 MLS/HR Potassium Chloride 100 ml @ 100 mls/hr AD PRN IV POTASSIUM PROTOCOL 12/04/24 11:00 01/03/25 10:59 Potassium Chloride (K-Dur 10meq Sr Tab) 10 meq AD PRN PO POTASSIUM PROTOCOL 12/05/24 07:00 01/03/25 10:59 12/09/24 08:09 10 MEQ Potassium Chloride (K-Dur/Klor-Con 20meq) 10 meq AD PRN PO POTASSIUM PROTOCOL 12/04/24 11:00 12/05/24 06:30 DC Potassium Chloride (KCl 10% Elixir 20meq/15ml) 10 meq AD PRN PO POTASSIUM PROTOCOL 12/04/24 11:00 01/03/25 10:59 12/09/24 06:48 10 MEQ Sodium Chloride 1,000 ml @ 100 mls/hr Q10H IV 12/04/24 11:00 12/06/24 12:47 DC 12/06/24 02:46 100 MLS/HR Vancomycin HCl 250 ml @ 125 mls/hr ONCE IV 12/04/24 11:00 12/04/24 12:59 DC 12/04/24 11:00 125 MLS/HR Vancomycin HCl 250 ml @ 125 mls/hr Q24H IV 12/05/24 11:00 12/05/24 13:42 DC 12/05/24 11:57 125 MLS/HR Zolpidem Tartrate (AmbIEN) 5 mg HS PRN PO INSOMNIA 12/04/24 11:00 01/03/25 10:59 DIAGNOSTICS / RADIOLOGY: [ ] ASSESSMENT: Septic shock, POA bacteremia due to E coli, POA UTI due to E coli, POA Generalized body weakness POA Intractable nausea and vomiting POA Acute kidney injury POA Acute dehydration POA Right flank pain POA Left intrahepatic biliary duct measuring [address] ultrasound abdomen POA Cholelithiasis per ultrasound abdomen POA Fatty liver per CT abdomen/pelvis POA Umbilical hernia per CT abdomen/pelvis POA Moderate degenerative disc disease of the spine per CT abdomen/pelvis POA Uncontrolled diabetes mellitus type 2 with hypoglycemia POA Hypotension POA Acute complicated cystitis POA Acute multifactorial anemia POA Hyperlipidemia POA Obesity POA History of polyp removal History of extended right colectomy with ileocolic anastomosis thrombocytopenia PLAN: NEURO: Minimize central acting medications as possible. Fall Precautions. Well lighted room through the day and minimize interruptions through the night to prevent acute delirium. PULMONARY: Supplemental 02 as needed Titrate Fio2 to keep Spo2 > or = 92% Out of bed to chair as tolerated Maintain aspiration precautions at all times CARDIOVASCULAR: Follow hemodynamics. Vital signs per facility protocol Follow up with Cardiology, appreciate recommendations -continue beta-raheel -anticoagulation once platelets improved GI & NUTRITION: Continue nutritional support Aspirations precautions Prokinetic agents and laxatives as needed Follow up with GI, appreciate assistance KIDNEYS & ELECTROLYTES: Strict monitoring of intake and output Daily weights Avoid nephrotoxic agents Monitor electrolytes and replace as needed Goal urine output of 30mL/hr or 0.5mL/kg/hr Medications to be dosed according to renal function. Avoid contrast if possible ENDOCRINE: Maintain blood glucose between 100-180 at all times. Insulin sliding scale for blood glucose management Hypoglycemia and hyperglycemia protocol in place INFECTIOUS DISEASE: Trend temperature, WBC Follow cultures, deescalate antibiotics as soon as possible. Follow up With the Infectious Disease -repeat urinalysis, urine and blood cultures, also obtain flu a and B HEMATOLOGY & COAGULATION: Monitor H&H. Keep Hgb > 7 Transfuse 1 unit of PRBC for Hgb < 7 Transfuse 1 pack of platelets of platelets < 20, 000 Watch for any signs and symptoms of bleeding Hematology, appreciate assistance SKIN: Pressure ulcer prevention per facility protocol Specialty mattress as needed ORTHO/REHAB Continue PT/OT PRN: MEDICATIONS Tylenol 650 mg po every 4 hrs for fever zofran 4 mg IV every 6 hrs for n/v Hydralazine 5 mg IV every 4 hrs systolic pressure > 160 bowel regiment: lactulose 20 gm PO BID PRN constipation Supportive measures: Continue GI and DVT prophylaxis All questions answered time spent: > 35 min ADALBERTO WHARTON IV, MD Dec 09, 2024 11:07
[2024-12-09 12:22] LABS: APPEARANCE,URINE CLEAR (CLEAR); GLUCOSE, URINE (UA) NEGATIVE (NEGATIVE); LEUKOCYTE ESTERASE ,URINE 250 Leu/uL (NEGATIVE); NITRATE,URINE NEGATIVE (NEGATIVE); OCCULT BLOOD,URINE NEGATIVE (NEGATIVE)
[2024-12-09 12:28] LABS: ADD UA MICROSCOPIC YES
[2024-12-09 12:35] LABS: SQUAMOUS EPITHELIAL CELL,UR RARE /HPF (0-2)
[2024-12-09 13:30] LABS: INFLUENZA TYPE A Negative For Type A (NEGATIVE); INFLUENZA TYPE B Negative For Type B (NEGATIVE)
--- NOTE | 2024-12-09 13:35 | PN ---
A 74-year-old male with diabetes mellitus, hypertension, obesity, presented to the hospital with nausea and vomiting and mild body weakness. The patient also complained of fever. T-max in the emergency room was 100.8. Imaging has been done. The patient's gallbladder is dilated. The patient is scheduled to undergo MRCP which has been done but pending official report. EGD was done. There is plan for colonoscopy to be done PHYSICAL EXAMINATION: VITAL SIGNS: There is no fever. Temperature 98.4, pulse 85, respiratory rate 18, blood pressure 130/86. EYES: No icterus. No conjunctival hemorrhage. HENT: No oral thrush seen. Moist oral mucosa. NECK: Supple. No JVD or thyromegaly. LUNGS: Good air entry. No rales, no rhonchi. CARDIOVASCULAR: S1 and S2. Regular. No murmur heard. ABDOMEN: Soft. Bowel sound is present. CENTRAL NERVOUS SYSTEM: Awake, alert, oriented x3. No focal deficits. SKIN: No rashes. LYMPHATIC: No peripheral lymphadenopathy. MUSCULOSKELETAL: No joint swelling. There is mild tenderness. ASSESSMENT: 1. Anemia. Hemoglobin level 10.5 g/deciliter 2. Gram negative sepsis. 3. Urinary tract infection. 4. Possible cholecystitis. 5. Acute renal failure. 6. Hypertension. 7. betes mellitus. 8. Thrombocytopenia Plan 1. Peripheral blood smear showed red blood cells to be normocytic normochromic. There was no fragment cell or schistocyte. There is no teardrop cell. There is no rouleaux phenomena. There is no pelger-Huet cell. White blood cell with no blasts. There is decreased platelet number. There is large platelet consistent with peripheral consumption of the platelet. 2. continue on folic acid 1 mg p.o. daily and vitamin B12 1000 mcg p.o. daily. 3. Thrombocytopenia most likely due to cirrhosis of the liver and splenomegaly. Platelet count is 70K. There is no need for platelet transfusion. 4. Patient have EGD done. There is plan for colonoscopy to be done today. There is no need for transfusion of platelet Vitals/Labs Vital Signs Date Time Temp Pulse Resp B/P (MAP) Pulse Ox O2 Delivery O2 Flow Rate FiO2 12/09/24 11:06 99.7 105 22 137/80 97 Room Air 12/09/24 08:14 0 21 Laboratory Tests 12/09/24 05:20 Medications Current Medications Ondansetron HCl 4 mg ONCE ONCE IVP Last administered on 12/04/24at 07:40; Start 12/04/24 at 07:30; Stop 12/04/24 at 07:31; Status DC Lactated Ringer's 1,000 ml BOLUS STAT IV Last administered on 12/04/24at 07:40; Start 12/04/24 at 07:07; Stop 12/04/24 at 07:14; Status DC Acetaminophen 1,000 mg ONCE ONCE PO Last administered on 12/04/24at 08:29; Start 12/04/24 at 08:30; Stop 12/04/24 at 08:31; Status DC Piperacillin Sod/ Tazobactam Sod 3.375 gm ONCE ONCE IV Last administered on 12/04/24at 09:35; Start 12/04/24 at 09:30; Stop 12/04/24 at 09:31; Status DC Sodium Chloride 1,000 ml @ 125 mls/hr ONCE ONCE IV Last administered on 12/04/24at 09:35; Start 12/04/24 at 09:30; Stop 12/04/24 at 17:29; Status DC Insulin Human Regular INSULIN SLIDING SCAL... ACHS SQ Last administered on 12/07/24at 12:39; Start 12/04/24 at 11:30; Stop 01/03/25 at 11:29 Dextrose 50 ml AD PRN IV; Start 12/04/24 at 11:00; Stop 01/03/25 at 10:59 Glucagon 1 mg AD PRN IM; Start 12/04/24 at 11:00; Stop 01/03/25 at 10:59 Potassium Chloride 100 ml @ 100 mls/hr AD PRN IV; Start 12/04/24 at 11:00; Stop 01/03/25 at 10:59 Potassium Chloride 10 meq AD PRN PO Last administered on 12/09/24at 06:48; Start 12/04/24 at 11:00; Stop 01/03/25 at 10:59 Potassium Chloride 10 meq AD PRN PO; Start 12/04/24 at 11:00; Stop 12/05/24 at 06:30; Status DC Magnesium Sulfate 50 ml @ 0 mls/hr PROTOCOL PRN IV Last administered on 12/07/24at 12:30; Start 12/04/24 at 11:00; Stop 01/03/25 at 10:59 Diphenhydramine HCl 25 mg Q4H PRN PO; Start 12/04/24 at 11:00; Stop 01/03/25 at 10:59 Acetaminophen 650 mg Q6H PRN PO; Start 12/04/24 at 11:00; Stop 01/03/25 at 10:59 Acetaminophen 650 mg Q4H PRN PO; Start 12/04/24 at 11:00; Stop 12/04/24 at 10:57; Status DC Ondansetron HCl 4 mg Q6H PRN IV; Start 12/04/24 at 11:00; Stop 01/03/25 at 10:59 Zolpidem Tartrate 5 mg HS PRN PO; Start 12/04/24 at 11:00; Stop 01/03/25 at 10:59 Al Hydroxide/Mg Hydroxide 30 ml Q6H PRN PO; Start 12/04/24 at 11:00; Stop 01/03/25 at 10:59 Lactulose 20 gm BID PRN PO; Start 12/04/24 at 11:00; Stop 01/03/25 at 10:59 Nitroglycerin 0.4 mg PROTOCOL PRN SL; Start 12/04/24 at 11:00; Stop 01/03/25 at 10:59 Guaifenesin/ Dextromethorphan 10 ml Q4H PRN PO; Start 12/04/24 at 11:00; Stop 01/03/25 at 10:59 Famotidine 20 mg BID PRN IV; Start 12/04/24 at 11:00; Stop 12/04/24 at 10:57; Status DC Heparin Sodium (Porcine) 5,000 unit BID SQ Last administered on 12/04/24at 22:19; Start 12/04/24 at 21:00; Stop 12/06/24 at 08:45; Status DC Acetaminophen 650 mg Q6H PRN PO Last administered on 12/09/24at 10:16; Start 12/04/24 at 11:00; Stop 01/03/25 at 10:59 Ketorolac Tromethamine 15 mg Q8H PRN IV Last administered on 12/08/24at 20:20; Start 12/04/24 at 11:00; Stop 12/09/24 at 10:59; Status DC Morphine Sulfate 1 mg Q4H PRN IVP Last administered on 12/08/24at 17:34; Start 12/04/24 at 11:00; Stop 12/11/24 at 10:59 Vancomycin HCl 250 ml @ 125 mls/hr ONCE IV Last administered on 12/04/24at 11:00; Start 12/04/24 at 11:00; Stop 12/04/24 at 12:59; Status DC Piperacillin Sod/ Tazobactam Sod 50 ml @ 12.5 mls/hr Q8H IV Last administered on 12/04/24at 17:09; Start 12/04/24 at 17:30; Stop 12/04/24 at 21:34; Status DC Sodium Chloride 1,000 ml @ 100 mls/hr Q10H IV Last administered on 12/06/24at 02:46; Start 12/04/24 at 11:00; Stop 12/06/24 at 12:47; Status DC Hydralazine HCl 10 mg Q6H PRN IV; Start 12/04/24 at 11:00; Stop 12/04/24 at 13:13; Status DC Famotidine 20 mg Q24H IV Last administered on 12/07/24at 21:32; Start 12/04/24 at 21:00; Stop 12/08/24 at 15:45; Status DC Vancomycin HCl 250 ml @ 125 mls/hr Q24H IV Last administered on 12/05/24at 11:57; Start 12/05/24 at 11:00; Stop 12/05/24 at 13:42; Status DC Norepinephrine 250 ml @ 0 mls/hr PROTOCOL STAT IV Last administered on 12/04/24at 13:12; Start 12/04/24 at 12:14; Stop 12/04/24 at 12:18; Status DC Gadoterate Meglumine 10 mmol STK-MED ONCE IV; Start 12/04/24 at 12:59; Stop 12/04/24 at 12:59; Status DC Cefepime HCl 1 gm Q8H IVPB Last administered on 12/05/24at 00:15; Start 12/04/24 at 16:00; Stop 12/05/24 at 06:31; Status DC Norepinephrine 250 ml @ 0 mls/hr PROTOCOL IV Last administered on 12/05/24at 14:03; Start 12/04/24 at 17:17; Stop 01/03/25 at 17:16 Potassium Chloride 10 meq AD PRN PO Last administered on 12/09/24at 08:09; Start 12/05/24 at 07:00; Stop 01/03/25 at 10:59 Cefepime HCl 1 gm Q12H IVPB; Start 12/05/24 at 12:00; Stop 12/05/24 at 13:42; Status DC Pharmacy Profile Note 1 each ONCE MISC; Start 12/05/24 at 14:00; Stop 12/05/24 at 13:51; Status DC Meropenem 1 gm Q12H IVPB Last administered on 12/09/24at 13:16; Start 12/05/24 at 14:00; Stop 12/15/24 at 13:59 Lactated Ringer's 1,000 ml @ 75 mls/hr [id number] IV Last administered on 12/09/24at 08:10; Start 12/06/24 at 13:00; Stop 01/05/25 at 12:59 Acetaminophen 650 mg ONCE ONCE PO Last administered on 12/06/24at 13:02; Start 12/06/24 at 13:00; Stop 12/06/24 at 13:01; Status DC Metoprolol Tartrate 12.5 mg BID PO Last administered on 12/09/24at 08:09; Start 12/06/24 at 21:00; Stop 01/05/25 at 20:59 Potassium Chloride 40 meq ONCE ONCE PO Last administered on 12/07/24at 08:45; Start 12/07/24 at 08:00; Stop 12/07/24 at 08:01; Status DC Potassium Chloride 100 ml @ 50 mls/hr ONCE ONCE IV Last administered on 12/07/24at 08:45; Start 12/07/24 at 08:00; Stop 12/07/24 at 09:59; Status DC Propofol 200 mg STK-MED ONCE IV; Start 12/08/24 at 14:19; Stop 12/08/24 at 14:19; Status DC Lidocaine HCl 100 mg STK-MED ONCE .ROUTE; Start 12/08/24 at 14:19; Stop 12/08/24 at 14:20; Status DC Pantoprazole Sodium 40 mg DAILY PO Last administered on 12/09/24at 08:09; Start 12/09/24 at 09:00; Stop 01/08/25 at 08:59 STEVEN SINCLAIR MD Dec 09, 2024 13:35
[2024-12-09] MEDS: PEG 3350/NA SULF,BICARB,CL/KCL 4000 ML SOLN PO ONE (19:21)
--- NOTE | 2024-12-09 22:05 | PN ---
CARDIOLOGY Reason for consult: Atrial flutter HPI/story at presentation: This is a pleasant 74 male with past medical history as below presents with complaints of gram-negative bacteremia sepsis and is currently, s/p pressors and resolution of sepsis, moved to the floor. Had another atrial flutter and therefore, cardiology was consulted for evaluation and management Past medical history: See below Allergies, Meds See chart Review of systems Review of Systems Constitutional: Negative for chills and fever. HENT: Negative for ear discharge and ear pain. Eyes: Negative for photophobia and discharge. Respiratory: Negative for cough, sputum production and stridor. Cardiovascular: Negative for chest pain and palpitations. Gastrointestinal: Negative for diarrhea and vomiting. Genitourinary: Negative for frequency. Musculoskeletal: Negative for myalgias. Skin: Negative for rash. Neurological: Negative for focal weakness and seizures. Endo/Heme/Allergies: Negative for polydipsia. Psychiatric/Behavioral: Negative for hallucinations. Vitals see chart PHYSICAL EXAMINATION GENERAL: The patient is alert and oriented*3 HEENT: Nonicteric sclerae, non traumatic HEART: Regular rate and rhythm with no murmurs LUNGS: Clear to auscultation bilaterally ABDOMEN: No acute issues, non tender GENITAL, RECTAL: deferred SKIN: No rash NEUROLOGIC: NFND EXTREMITIES: No edema ASSESSMENT ATRIAL FLUTTER newly diagnosed, 12/27 Rate controlled, 12/2024 SEPSIS, CYSTITIS At presentation, Resolved Associated gram-negative bacteremia THROMBOCYTOPENIA Anticoagulation on hold in the setting ACUTE KIDNEY INJURY At presentation Resolved DIABETES CORE MEASURES OTHER MEDICAL PROBLEMS Biliary stones, fatty liver, umbilical hernia, history of right colectomy, ileocolonic anastomosis, cholelithiasis Moderate degenerative disc disease PLAN 12/06/2024 no active cardiac complaints at this time, has returned to normal sinus rhythm. May continue anticoagulation if platelets improve. On rate control. Seen and examined 12/06/2024 at around 3:30 PM. 12/07/2024 No active cardiac complaints at this time, blood cultures are positive for E. coli are currently on IV antibiotics, ongoing issues with thrombocytopenia, platelets being provided prior to EGD. On beta-blockers, not on anticoagulation at this time until platelets improve. Will follow perioperatively. Echocardiogram was previously with normal ejection fraction. Seen and examined 12/07/2024 around 8 PM. 12/09/2024 Doing well, patient underwent EGD with evidence of gastritis and varices, plans for colonoscopy noted. Seen and examined 12/09/2024 at around 8 PM ATTESTATION I was involved substantially in the care of this patient Number and complexity of problems addressed: 1 acute illness with systemic features Amount and or complexity of data Review of prior external note(s) from each unique source: 2+ Ordering of each unique test : 0 Review of the result(s) of each unique test: 2+ Assessment requiring an independent historian(s): No Independent interpretation of test performed by another MD/QHCP/appropriate source (not separately reported) : No Discussion of management or test interpretation with external MD/QHCP/appropriate source (not separately reported) : No Risk status (cardiac, billing related): Moderate Vitals/Labs Vital Signs Date Time Temp Pulse Resp B/P (MAP) Pulse Ox O2 Delivery O2 Flow Rate FiO2 12/09/24 20:00 98.2 71 16 144/69 97 Room Air 12/09/24 08:14 0 21 Laboratory Tests 12/09/24 05:20 Medications Current Medications Ondansetron HCl 4 mg ONCE ONCE IVP Last administered on 12/04/24at 07:40; Start 12/04/24 at 07:30; Stop 12/04/24 at 07:31; Status DC Lactated Ringer's 1,000 ml BOLUS STAT IV Last administered on 12/04/24at 07:40; Start 12/04/24 at 07:07; Stop 12/04/24 at 07:14; Status DC Acetaminophen 1,000 mg ONCE ONCE PO Last administered on 12/04/24at 08:29; Start 12/04/24 at 08:30; Stop 12/04/24 at 08:31; Status DC Piperacillin Sod/ Tazobactam Sod 3.375 gm ONCE ONCE IV Last administered on 12/04/24at 09:35; Start 12/04/24 at 09:30; Stop 12/04/24 at 09:31; Status DC Sodium Chloride 1,000 ml @ 125 mls/hr ONCE ONCE IV Last administered on 12/04/24at 09:35; Start 12/04/24 at 09:30; Stop 12/04/24 at 17:29; Status DC Insulin Human Regular INSULIN SLIDING SCAL... ACHS SQ Last administered on 12/07/24at 12:39; Start 12/04/24 at 11:30; Stop 01/03/25 at 11:29 Dextrose 50 ml AD PRN IV; Start 12/04/24 at 11:00; Stop 01/03/25 at 10:59 Glucagon 1 mg AD PRN IM; Start 12/04/24 at 11:00; Stop 01/03/25 at 10:59 Potassium Chloride 100 ml @ 100 mls/hr AD PRN IV; Start 12/04/24 at 11:00; Stop 01/03/25 at 10:59 Potassium Chloride 10 meq AD PRN PO Last administered on 12/09/24at 06:48; Start 12/04/24 at 11:00; Stop 01/03/25 at 10:59 Potassium Chloride 10 meq AD PRN PO; Start 12/04/24 at 11:00; Stop 12/05/24 at 06:30; Status DC Magnesium Sulfate 50 ml @ 0 mls/hr PROTOCOL PRN IV Last administered on 12/07/24at 12:30; Start 12/04/24 at 11:00; Stop 01/03/25 at 10:59 Diphenhydramine HCl 25 mg Q4H PRN PO; Start 12/04/24 at 11:00; Stop 01/03/25 at 10:59 Acetaminophen 650 mg Q6H PRN PO; Start 12/04/24 at 11:00; Stop 01/03/25 at 10:59 Acetaminophen 650 mg Q4H PRN PO; Start 12/04/24 at 11:00; Stop 12/04/24 at 10:57; Status DC Ondansetron HCl 4 mg Q6H PRN IV; Start 12/04/24 at 11:00; Stop 01/03/25 at 10:59 Zolpidem Tartrate 5 mg HS PRN PO; Start 12/04/24 at 11:00; Stop 01/03/25 at 10:59 Al Hydroxide/Mg Hydroxide 30 ml Q6H PRN PO; Start 12/04/24 at 11:00; Stop 01/03/25 at 10:59 Lactulose 20 gm BID PRN PO; Start 12/04/24 at 11:00; Stop 01/03/25 at 10:59 Nitroglycerin 0.4 mg PROTOCOL PRN SL; Start 12/04/24 at 11:00; Stop 01/03/25 at 10:59 Guaifenesin/ Dextromethorphan 10 ml Q4H PRN PO; Start 12/04/24 at 11:00; Stop 01/03/25 at 10:59 Famotidine 20 mg BID PRN IV; Start 12/04/24 at 11:00; Stop 12/04/24 at 10:57; Status DC Heparin Sodium (Porcine) 5,000 unit BID SQ Last administered on 12/04/24at 22:19; Start 12/04/24 at 21:00; Stop 12/06/24 at 08:45; Status DC Acetaminophen 650 mg Q6H PRN PO Last administered on 12/09/24at 10:16; Start 12/04/24 at 11:00; Stop 01/03/25 at 10:59 Ketorolac Tromethamine 15 mg Q8H PRN IV Last administered on 12/08/24at 20:20; Start 12/04/24 at 11:00; Stop 12/09/24 at 10:59; Status DC Morphine Sulfate 1 mg Q4H PRN IVP Last administered on 12/08/24at 17:34; Start 12/04/24 at 11:00; Stop 12/09/24 at 13:59; Status DC Vancomycin HCl 250 ml @ 125 mls/hr ONCE IV Last administered on 12/04/24at 11:00; Start 12/04/24 at 11:00; Stop 12/04/24 at 12:59; Status DC Piperacillin Sod/ Tazobactam Sod 50 ml @ 12.5 mls/hr Q8H IV Last administered on 12/04/24at 17:09; Start 12/04/24 at 17:30; Stop 12/04/24 at 21:34; Status DC Sodium Chloride 1,000 ml @ 100 mls/hr Q10H IV Last administered on 12/06/24at 02:46; Start 12/04/24 at 11:00; Stop 12/06/24 at 12:47; Status DC Hydralazine HCl 10 mg Q6H PRN IV; Start 12/04/24 at 11:00; Stop 12/04/24 at 13:13; Status DC Famotidine 20 mg Q24H IV Last administered on 12/07/24at 21:32; Start 12/04/24 at 21:00; Stop 12/08/24 at 15:45; Status DC Vancomycin HCl 250 ml @ 125 mls/hr Q24H IV Last administered on 12/05/24at 11:57; Start 12/05/24 at 11:00; Stop 12/05/24 at 13:42; Status DC Norepinephrine 250 ml @ 0 mls/hr PROTOCOL STAT IV Last administered on 12/04/24at 13:12; Start 12/04/24 at 12:14; Stop 12/04/24 at 12:18; Status DC Gadoterate Meglumine 10 mmol STK-MED ONCE IV; Start 12/04/24 at 12:59; Stop 12/04/24 at 12:59; Status DC Cefepime HCl 1 gm Q8H IVPB Last administered on 12/05/24at 00:15; Start 12/04/24 at 16:00; Stop 12/05/24 at 06:31; Status DC Norepinephrine 250 ml @ 0 mls/hr PROTOCOL IV Last administered on 12/05/24at 14:03; Start 12/04/24 at 17:17; Stop 01/03/25 at 17:16 Potassium Chloride 10 meq AD PRN PO Last administered on 12/09/24at 08:09; Start 12/05/24 at 07:00; Stop 01/03/25 at 10:59 Cefepime HCl 1 gm Q12H IVPB; Start 12/05/24 at 12:00; Stop 12/05/24 at 13:42; Status DC Pharmacy Profile Note 1 each ONCE MISC; Start 12/05/24 at 14:00; Stop 12/05/24 at 13:51; Status DC Meropenem 1 gm Q12H IVPB Last administered on 12/09/24at 13:16; Start 12/05/24 at 14:00; Stop 12/15/24 at 13:59 Lactated Ringer's 1,000 ml @ 75 mls/hr [id number] IV Last administered on 12/09/24at 08:10; Start 12/06/24 at 13:00; Stop 01/05/25 at 12:59 Acetaminophen 650 mg ONCE ONCE PO Last administered on 12/06/24at 13:02; Start 12/06/24 at 13:00; Stop 12/06/24 at 13:01; Status DC Metoprolol Tartrate 12.5 mg BID PO Last administered on 12/09/24at 21:37; Start 12/06/24 at 21:00; Stop 01/05/25 at 20:59 Potassium Chloride 40 meq ONCE ONCE PO Last administered on 12/07/24at 08:45; Start 12/07/24 at 08:00; Stop 12/07/24 at 08:01; Status DC Potassium Chloride 100 ml @ 50 mls/hr ONCE ONCE IV Last administered on 12/07/24at 08:45; Start 12/07/24 at 08:00; Stop 12/07/24 at 09:59; Status DC Propofol 200 mg STK-MED ONCE IV; Start 12/08/24 at 14:19; Stop 12/08/24 at 14:19; Status DC Lidocaine HCl 100 mg STK-MED ONCE .ROUTE; Start 12/08/24 at 14:19; Stop 12/08/24 at 14:20; Status DC Pantoprazole Sodium 40 mg DAILY PO Last administered on 12/09/24at 08:09; Start 12/09/24 at 09:00; Stop 01/08/25 at 08:59 Polyethylene Glycol/ Electrolytes 4,000 ml ONCE ONCE PO Last administered on 12/09/24at 19:21; Start 12/09/24 at 19:00; Stop 12/09/24 at 19:02; Status DC KENIA JOHNSON MD Dec 09, 2024 22:05
--- NOTE | 2024-12-09 22:45 | PN ---
INFECTIOUS DISEASE PROGRESS NOTE Date of Service: Dec 09, 2024 SUBJECTIVE: This is a 74-year-old male patient who was seen and examined at bedside in room 314. Patient had a low-grade fever of 99.7 this morning. No nausea or vomiting. We will continue on Meropenem. Platelets level improved to 70. Patient is s/p EGD we will findings of acute gastritis, small esophageal varices and portal hypertensive gastropathy. No other issues reported by nursing. PHYSICAL EXAM EYES: Anicteric. Pupils equal and reactive. HENT: No oral thrush seen, moist Oral mucosa NECK: Supple, no JVD or thyromegaly. LUNGS: Good air entry. No rales, no rhonchi. CARDIOVASCULAR: S1, S2 regular. No murmur heard. ABDOMEN: Soft and normal bowel sounds. CENTRAL NERVOUS SYSTEM: Awake, alert, oriented x 3. SKIN: No rashes, no swelling. LYMPHATICS: No peripheral lymphadenopathy. MUSCULOSKELETAL: No joint swelling, erythema or tenderness. EXTREMITIES: No cyanosis or clubbing. Generalized weakness. BACK: No deformity, no pressure ulcer. GENITOURINARY: No dysuria or hematuria. Vital Sign (Last 12 Hours) 12/09/24 12/09/24 12/09/24 11:06 16:02 20:00 Temp 99.7 98.4 98.2 Pulse 105 72 71 Resp 22 16 16 B/P (MAP) 137/80 124/62 144/69 Pulse Ox 97 97 97 O2 Delivery Room Air Room Air Room Air Intake & Output (last 24hrs) 12/08/24 12/08/24 12/09/24 15:00 23:00 07:00 Output Total 200 ml Balance -200 ml LABS: Laboratory: Test 12/09/24 19:20 12/09/24 12:41 12/09/24 11:50 12/09/24 05:20 Range/Units Whole Blood Glucose 85 70-110 MG/DL Influenza Type A Antigen Negative For Type A NEGATIVE Influenza Type B Antigen Negative For Type B NEGATIVE Urine Color YELLOW YELLOW Urine Appearance CLEAR CLEAR Urine pH 5.5 5.0-8.0 Urine Specific Squires 1.022 1.001-1.031 Urine Protein 10 H NEGATIVE mg/dL Urine Glucose (UA) NEGATIVE NEGATIVE mg/dL Urine Ketones NEGATIVE NEGATIVE mg/dL Urine Occult Blood NEGATIVE NEGATIVE Urine Nitrate NEGATIVE NEGATIVE Urine Bilirubin 0.5 H NEGATIVE mg/dL Urine Urobilinogen 6 H 0.2-1.0 mg/dL Urine Leukocyte Esterase 250 H NEGATIVE Karon/uL Urine RBC 2-5 H 0-1 /HPF Urine WBC 11-25 H 0-1 /HPF Urine Squamous Epithelial Cells RARE 0-2 /HPF Urine Bacteria None None Seen /HPF White Blood Count 7.1 4.8-10.8 K/uL Red Blood Count 3.14 L 4.50-6.20 MIL/uL Hemoglobin 10.5 L 14.0-18.0 g/dL Hematocrit 28.7 L 42-54 % Mean Corpuscular Volume 91.4 79-99 fL Mean Corpuscular Hemoglobin 33.4 H 27.0-33.0 pg Mean Corpuscular Hemoglobin Concent 36.6 H 32.0-36.0 g/dL Red Cell Distribution Width 13.2 11.0-15.5 % Platelet Count 70 #L 130-400 K/uL Mean Platelet Volume 10.6 H 7.5-10.5 fL Nucleated Red Blood Cells 0.0 0.0-0.19 % Sodium Level 141 136-145 mmol/L Potassium Level 3.6 3.5-5.1 mmol/L Chloride Level 110 101-111 mmol/L Carbon Dioxide Level 22 21-32 mmol/L Blood Urea Nitrogen 23 H 7-18 mg/dL Creatinine 0.8 0.5-1.3 mg/dL Glomerular Filtration Rate Calc 93 >90 mL/min Random Glucose 84 70-105 mg/dL Total Calcium 7.4 L 8.5-10.1 mg/dL Test 12/08/24 04:26 Range/Units Magnesium Level 1.90 1.80-2.40 mg/dL Total Bilirubin 3.2 H 0.2-1.0 mg/dL Aspartate Amino Transf (AST/SGOT) 44 H 10-37 U/L Alanine Aminotransferase (ALT/SGPT) 39 12-78 U/L Alkaline Phosphatase 111 50-136 U/L Total Protein 4.9 L 6.0-8.3 g/dL Albumin 1.5 L 3.5-5.0 g/dL DIAGNOSTICS / RADIOLOGY: PATIENT: OSITO MONTEZ ACCT: [id number] LOC: 2C U: [id number] AGE/SX: 74/M ROOM: [facility] RE12/04/[address]: LINDA RUIZ MD : 1950 BED: 1 DIS: STATUS: ADM IN TLOC: SPEC: [id number] LADARIUS: 12/04/24 STATUS: RES REQ: [id number] RECD: 12/04/[address]: LEIGH ANN KYLE APRN SOURCE: BLOOD ENTR: 12/04/24-[address] [facility] [address]: WEI MCCLELLAND MD [facility]: SUSIE ARNDT MD SELF,REFERRAL ORDERED: BLOOD CULTURE COMMENTS: What is the Source? BLOOD Procedure Result María Date-Time BLOOD CULT Preliminary 12/05/24-1150 GRAM STAIN: GRAM NEGATIVE RODS 2 OF 2 BLOOD CULTURES AEROBIC BOTTLES ONLY NOTIFIED NURSE FRANCISCO WANG AT 1018 ON 12/05/24 BY SANTIAGO CULTURE REPORT: IDENTIFICATION In Progress. SEE [id number] FOR CULTURE RESULTS PATIENT: OSITO MONTEZ ACCT: [id number] LOC: [facility] U: [id number] AGE/SX: 74/M ROOM: 215 RE12/04/[address]: LINDA RUIZ MD : 1950 BED: 1 DIS: STATUS: ADM IN TLOC: SPEC: [id number] LADARIUS: 12/04/24 STATUS: RES REQ: [id number] RECD: 12/05/[address]: JC DIALLO MD SOURCE: [facility] [place] ENTR: 12/05/[address]: SUSIE ARNDT MD SPDESC: CLEAN CAT SELF,REFERRAL ORDERED: AERO ID & SENS Procedure Result María Date-Time AEROBIC ID & SENSITIVITIES Preliminary 12/05/24-1243 MRL COLONY DESCRIPTION: DAY 1: COLONY COUNT: 10,000 - 20,000 CFU/ML GRAM NEGATIVE RODS IDENTIFICATION AND SENSITIVITY TO FOLLOW ASSESSMENT: E Coli bacteremia. Urinary tract infection with E coli. Sepsis. Streptococcus pharyngitis. Abdominal pain, s/p EGD we will findings of acute gastritis, small esophageal varices and portal hypertensive gastropathy.. Thrombocytopenia. Acute renal failure, resolved. Dehydration. Diabetes mellitus. PLAN: Continue Meropenem. Continue GI prophylaxis. Continue antidiabetics. Avoid nephrotoxic medications. Continue nutritional support. This case was reviewed and discussed with my supervising physician Dr. Espinosa and the above assessment and plan was formulated and agreed upon. ATTESTATION BY PHYSICIAN I have seen and examined the patient. I reviewed the documentation, medical decision making, and treatment plan as noted by the mid-level provider above. I agree with the findings and plan of care. MAURICIO ESPINOSA MD, M[facility]TA [facility] Dec 09, 2024 22:45
[2024-12-10] VITALS (21 sets, daily range): BP systolic 116–152; BP diastolic 55–97; PULSE 71–84; RESP 15–20; TEMP 97.7–98.6; O2SAT 93–96
--- NOTE | 2024-12-10 11:15 | NUR ---
FEELS WEAK, PENDING COLONOSCOPY. Addendum: 12/10/24 at 1136 by KEVAN RANGEL PT Amended: Links added.
--- NOTE | 2024-12-10 14:01 | PN ---
[facility] PROGRESS NOTE Date of Service: Dec 10, 2024 Time of Service: 13:58 SUBJECTIVE: 12/05 the patient has been seen and examined at bedside, case discussed with the RN, patient admitted to the ICU, remains on Levophed for blood pressure support, BP 105/44, afebrile, saturating normal on room air. During my visit the patient is alert and oriented x3, he denies chest pain, no shortness a breath, no nausea, no vomiting, no abdominal pain, no diarrhea. WBC slowly trending down, today 12.3, hemoglobin 12.4, hematocrit 34.8, with a platelet count of 76. Stool occult blood positive. Group A strep a rapid test is positive. Total bilirubin of 7.2. MRCP showing cholelithiasis without acute cholecystitis, no biliary obstruction, incidental pancreatic divisum, he per cirrhosis, hepatic steatosis, mild splenomegaly, left renal cortical cyst. HIDA scan no acute cholecystitis. Echocardiogram showing LVEF 55%, left ventricle diastolic function is normal, the right ventricular systolic function is normal, the atria are normal in size, no hemodynamically significant valvular abnormalities, how pericardial effusion. Blood culture positive for Gram-negative rods 2/2 blood sets. Urine culture [id number] CFU, identification and susceptibilities in process. Patient evaluated by GI, recommended EGD for further evaluation. Recommended also colonoscopy. 12/06 patient is seen and examined at bedside, case discussed with the RN, no acute events overnight, the patient off Levophed, hemodynamically stable, afebrile, saturating normal on room air. Results of urine culture positive for E coli. Blood culture positive for Gram-negative rods, pending final identification. Patient to continue broad-spectrum IV antibiotics. HIDA scan no acute cholecystitis. Echocardiogram showing LVEF 55%, left ventricle diastolic function is normal, the right ventricular systolic function is normal, the atria are normal in size, no hemodynamically significant valvular abnormalities, how pericardial effusion. Blood culture positive for Gram-negative rods 2/2 blood sets. Urine culture [id number] CFU, identification and susceptibilities in process. Patient evaluated by GI, recommended EGD for further evaluation. Recommended also colonoscopy. Patient to be downgraded to PCU. 12/07 patient is seen and examined at bedside, downgraded to the medical floor, alert oriented x3 at the time of my visit, he is getting broad-spectrum IV antibiotics, denies chest pain, shortness shortness for breath, no nausea, no vomit. Results of blood culture positive for E coli, urine culture positive for E coli. Continue the patient on broad-spectrum IV antibiotics. Patient with thrombocytopenia, Hematology consultation requested, recommended to transfuse 1 unit of platelets prior to EGD tomorrow by GI. Patient also with a atrial flutter, cardiology consulted, continue the patient on metoprolol tartrate 12.5 mg p.o. b.i.d. May continue anticoagulation if platelets improve. 12/08 patient is undergoing EGD. No new complaints or concerns. No acute events reported overnight. Patient is receiving 1 unit PRBCs due to thrombocytopenia. 12/09 patient underwent EGD yesterday gastritis and small esophageal varice. Complications reported. No new complaints or concerns. This morning the alexander ramírez began to shaver in his temperature began to rise and was given Tylenol. He was also pancultured. 12/10 units NPO pending colonoscopy. No new complaints or concerns. No acute events reported overnight. REVIEW OF SYSTEMS CONSTITUTIONAL: Denies fevers, chills, or night sweats. No unintentional weight loss reported. Complains of generalized body weakness NEUROLOGICAL: Denies headache, amaurosis fugax, motor weakness, sensory deficit, vertigo/spinning sensation, gait abnormalities, or tremors. ENT: No hearing loss, otalgia, otorrhea, rhinitis, rhinorrhea, hoarseness, or sore throat. CARDIOVASCULAR: Denies any exertional angina, dyspnea on exertion, orthopnea, paroxysmal nocturnal dyspnea, palpitations, life-threatening arrhythmias, claudication. PULMONARY: Denies any shortness of breath, cough, phlegm/sputum, hemoptysis, pleuritic chest pain. SLEEP: Denies morning headaches, daytime somnolence or napping. Denies difficulty falling asleep, staying asleep, waking from sleep. Denies knowledge of snoring. GASTROINTESTINAL: Denies any type of dysphagia to either liquids or solids. Denies , pyrosis, early satiety, abdominal pain, diarrhea, constipation, or changes in stool consistency or caliber. Denies coffee-ground emesis, hematemesis, hematochezia, or melanotic stools. Complains of nausea and vomiting GENITOURINARY: Denies frequency, urgency, nocturia, hematuria or incontinence (Storage/Irritative symptoms.) Low urinary stream, straining to void, urinary intermittency or hesitancy, splitting of the voiding stream, terminal dribbling. ENDOCRINOLOGIC: Denies polyuria, polydipsia, polyphagia or heat/cold intolerances. HEMATOLOGIC: Denies thrombophilia/previous clots, or coagulopathy/bleeding disorders. ONCOLOGIC: Denies personal history of malignancy. DERMATOLOGIC: Denies rashes or pruritus. PSYCHIATRIC: Denies any suicidal or homicidal ideation. Denies hallucinations. PHYSICAL EXAM GENERAL APPEARANCE: The patient is awake, alert, and oriented, in no acute cardiopulmonary distress. NEUROLOGICAL: Cranial nerves II-XII grossly intact. Motor is 5/5 in bilateral upper and lower extremities proximal to distal. No sensory deficits. HEENT: Face is symmetric. Pupils are equal and reactive. Extraocular movements are intact. NECK: Supple. No JVD. No thyromegaly. No submental, submandibular, pre- /postauricular, occipital or supraclavicular lymphadenopathy. CHEST: Normal chest expansion. No Telemetry. LUNGS: Absence of any rales, rhonchi or any wheezing. CARDIOVASCULAR: Regular. S1 and S2 normal. No appreciable rubs, murmurs or gallops. ABDOMEN: Soft, nontender, and nondistended. There is no rebound, voluntary guarding, or rigidity. : Deferred. No Mariano. EXTREMITIES: Non-edematous and not cyanotic. No clubbing. Good capillary refill. SKIN: No skin breakdown. Vital Signs (last 8hr) Date Time Temp Pulse Resp B/P (MAP) Pulse Ox O2 Delivery O2 Flow Rate FiO2 12/10/24 08:00 98.2 74 15 128/68 95 Room Air LABS: Laboratory: Test 12/10/24 11:47 12/09/24 12:41 12/09/24 11:50 12/09/24 05:20 Range/Units Whole Blood Glucose 88 70-110 MG/DL Influenza Type A Antigen Negative For Type A NEGATIVE Influenza Type B Antigen Negative For Type B NEGATIVE Urine Color YELLOW YELLOW Urine Appearance CLEAR CLEAR Urine pH 5.5 5.0-8.0 Urine Specific Graham 1.022 1.001-1.031 Urine Protein 10 H NEGATIVE mg/dL Urine Glucose (UA) NEGATIVE NEGATIVE mg/dL Urine Ketones NEGATIVE NEGATIVE mg/dL Urine Occult Blood NEGATIVE NEGATIVE Urine Nitrate NEGATIVE NEGATIVE Urine Bilirubin 0.5 H NEGATIVE mg/dL Urine Urobilinogen 6 H 0.2-1.0 mg/dL Urine Leukocyte Esterase 250 H NEGATIVE Karon/uL Urine RBC 2-5 H 0-1 /HPF Urine WBC 11-25 H 0-1 /HPF Urine Squamous Epithelial Cells RARE 0-2 /HPF Urine Bacteria None None Seen /HPF White Blood Count 7.1 4.8-10.8 K/uL Red Blood Count 3.14 L 4.50-6.20 MIL/uL Hemoglobin 10.5 L 14.0-18.0 g/dL Hematocrit 28.7 L 42-54 % Mean Corpuscular Volume 91.4 79-99 fL Mean Corpuscular Hemoglobin 33.4 H 27.0-33.0 pg Mean Corpuscular Hemoglobin Concent 36.6 H 32.0-36.0 g/dL Red Cell Distribution Width 13.2 11.0-15.5 % Platelet Count 70 #L 130-400 K/uL Mean Platelet Volume 10.6 H 7.5-10.5 fL Nucleated Red Blood Cells 0.0 0.0-0.19 % Sodium Level 141 136-145 mmol/L Potassium Level 3.6 3.5-5.1 mmol/L Chloride Level 110 101-111 mmol/L Carbon Dioxide Level 22 21-32 mmol/L Blood Urea Nitrogen 23 H 7-18 mg/dL Creatinine 0.8 0.5-1.3 mg/dL Glomerular Filtration Rate Calc 93 >90 mL/min Random Glucose 84 70-105 mg/dL Total Calcium 7.4 L 8.5-10.1 mg/dL Current Medications Medications (Trade) Dose Ordered Sig/Panchito Route PRN Reason Start Time Stop Time Status Last Admin Dose Admin Acetaminophen (TYLenol 325MG TAB) 650 mg Q4H PRN PO MILD PAIN (1-3) 12/04/24 11:00 12/04/24 10:57 DC Acetaminophen (TYLenol 325MG TAB) 650 mg Q6H PRN PO MILD PAIN (1-3) 12/04/24 11:00 01/03/25 10:59 12/10/24 01:52 650 MG Acetaminophen (TYLenol 325MG TAB) 650 mg Q6H PRN PO TEMPERATURE GREATER THAN 101.5 12/04/24 11:00 01/03/25 10:59 Al Hydroxide/Mg Hydroxide (MAALox PLUS 30ML) 30 ml Q6H PRN PO INDIGESTION 12/04/24 11:00 01/03/25 10:59 Cefepime HCl (MAXipime 1 GM vial) 1 gm Q12H IVPB 12/05/24 12:00 12/05/24 13:42 DC Cefepime HCl (MAXipime 1 GM vial) 1 gm Q8H IVPB 12/04/24 16:00 12/05/24 06:31 DC 12/05/24 00:15 1 GM Dextrose (D50w) 50 ml AD PRN IV HYPOGLYCEMIA PROTOCOL 12/04/24 11:00 01/03/25 10:59 Diphenhydramine HCl (BENAdryl CAP) 25 mg Q4H PRN PO MILD ITCHING/RASH 12/04/24 11:00 01/03/25 10:59 Famotidine (Pepcid 20mg Vial) 20 mg BID PRN IV NAUSEA/VOMITING 12/04/24 11:00 12/04/24 10:57 DC Famotidine (Pepcid 20mg Vial) 20 mg Q24H IV 12/04/24 21:00 12/08/24 15:45 DC 12/07/24 21:32 20 MG Glucagon (Glucagon 1mg Kit) 1 mg AD PRN IM HYPOGLYCEMIA PROTOCOL 12/04/24 11:00 01/03/25 10:59 Guaifenesin/ Dextromethorphan (RobiTUSSin DM 200/20MG 10ML) 10 ml Q4H PRN PO COUGH 12/04/24 11:00 01/03/25 10:59 Heparin Sodium (Porcine) (HEParin 5,000 UNIT VIAL) 5,000 unit BID SQ 12/04/24 21:00 12/06/24 08:45 DC 12/04/24 22:19 5,000 UNIT Hydralazine HCl (APRESOLine 20MG INJ) 10 mg Q6H PRN IV For:SBP above 160;DBP above 90 12/04/24 11:00 12/04/24 13:13 DC Insulin Human Regular (humuLIN R 100 UNIT/ML 3ML) INSULIN SLIDING SCAL... ACHS SQ 12/04/24 11:30 01/03/25 11:29 12/07/24 12:39 4 UNIT Ketorolac Tromethamine (toRADol) 15 mg Q8H PRN IV MODERATE PAIN (4-6) 12/04/24 11:00 12/09/24 10:59 DC 12/08/24 20:20 15 MG Lactated Ringer's 1,000 ml @ 75 mls/hr [id number] IV 12/06/24 13:00 01/05/25 12:59 12/09/24 21:00 75 MLS/HR Lactated Ringer's (Lactated Ringers 1000ml) 1,000 ml BOLUS STAT IV 12/04/24 07:07 12/04/24 07:14 DC 12/04/24 07:40 1,000 ML Lactulose (Constulose 20gm/ 30ml Udcup) 20 gm BID PRN PO CONSTIPATION 12/04/24 11:00 01/03/25 10:59 Magnesium Sulfate 50 ml @ 0 mls/hr PROTOCOL PRN IV OTHER [SEE ORDER COMMENTS] 12/04/24 11:00 01/03/25 10:59 12/07/24 12:30 20 MLS/HR Meropenem (Merrem 1gm) 1 gm Q12H IVPB 12/05/24 14:00 12/15/24 13:59 12/10/24 03:41 1 GM Metoprolol Tartrate (loprESSOR) 12.5 mg BID PO 12/06/24 21:00 01/05/25 20:59 12/09/24 21:37 12.5 MG Morphine Sulfate (morPHINE 4MG SYG) 1 mg Q4H PRN IVP SEVERE PAIN (7-10) 12/04/24 11:00 12/09/24 13:59 DC 12/08/24 17:34 1 MG Nitroglycerin (Nitrostat) 0.4 mg PROTOCOL PRN SL CHEST PAIN 12/04/24 11:00 01/03/25 10:59 Norepinephrine 250 ml @ 0 mls/hr PROTOCOL IV 12/04/24 17:17 01/03/25 17:16 12/05/24 14:03 3.09 MLS/HR Norepinephrine 250 ml @ 0 mls/hr PROTOCOL STAT IV 12/04/24 12:14 12/04/24 12:18 DC 12/04/24 13:12 0.1 MLS/HR Ondansetron HCl (zoFRAN 4MG INJ) 4 mg Q6H PRN IV NAUSEA/VOMITING 12/04/24 11:00 01/03/25 10:59 Pantoprazole Sodium (PROTonix 40MG TAB) 40 mg DAILY PO 12/09/24 09:00 01/08/25 08:59 12/09/24 08:09 40 MG Pharmacy Profile Note (Pharmacy Communication) 1 each ONCE MISC 12/05/24 14:00 12/05/24 13:51 DC Piperacillin Sod/ Tazobactam Sod 50 ml @ 12.5 mls/hr Q8H IV 12/04/24 17:30 12/04/24 21:34 DC 12/04/24 17:09 12.5 MLS/HR Potassium Chloride 100 ml @ 100 mls/hr AD PRN IV POTASSIUM PROTOCOL 12/04/24 11:00 01/03/25 10:59 Potassium Chloride (K-Dur 10meq Sr Tab) 10 meq AD PRN PO POTASSIUM PROTOCOL 12/05/24 07:00 01/03/25 10:59 12/09/24 08:09 10 MEQ Potassium Chloride (K-Dur/Klor-Con 20meq) 10 meq AD PRN PO POTASSIUM PROTOCOL 12/04/24 11:00 12/05/24 06:30 DC Potassium Chloride (KCl 10% Elixir 20meq/15ml) 10 meq AD PRN PO POTASSIUM PROTOCOL 12/04/24 11:00 01/03/25 10:59 12/09/24 06:48 10 MEQ Sodium Chloride 1,000 ml @ 100 mls/hr Q10H IV 12/04/24 11:00 12/06/24 12:47 DC 12/06/24 02:46 100 MLS/HR Vancomycin HCl 250 ml @ 125 mls/hr ONCE IV 12/04/24 11:00 12/04/24 12:59 DC 12/04/24 11:00 125 MLS/HR Vancomycin HCl 250 ml @ 125 mls/hr Q24H IV 12/05/24 11:00 12/05/24 13:42 DC 12/05/24 11:57 125 MLS/HR Zolpidem Tartrate (AmbIEN) 5 mg HS PRN PO INSOMNIA 12/04/24 11:00 01/03/25 10:59 DIAGNOSTICS / RADIOLOGY: [ ] ASSESSMENT: Septic shock, POA bacteremia due to E coli, POA UTI due to E coli, POA Generalized body weakness POA Intractable nausea and vomiting POA Acute kidney injury POA Acute dehydration POA Right flank pain POA Left intrahepatic biliary duct measuring [address] ultrasound abdomen POA Cholelithiasis per ultrasound abdomen POA Fatty liver per CT abdomen/pelvis POA Umbilical hernia per CT abdomen/pelvis POA Moderate degenerative disc disease of the spine per CT abdomen/pelvis POA Uncontrolled diabetes mellitus type 2 with hypoglycemia POA Hypotension POA Acute complicated cystitis POA Acute multifactorial anemia POA Hyperlipidemia POA Obesity POA History of polyp removal History of extended right colectomy with ileocolic anastomosis thrombocytopenia PLAN: NEURO: Minimize central acting medications as possible. Fall Precautions. Well lighted room through the day and minimize interruptions through the night to prevent acute delirium. PULMONARY: Supplemental 02 as needed Titrate Fio2 to keep Spo2 > or = 92% Out of bed to chair as tolerated Maintain aspiration precautions at all times CARDIOVASCULAR: Follow hemodynamics. Vital signs per facility protocol Follow up with Cardiology, appreciate recommendations -continue beta-raheel -anticoagulation once platelets improved GI & NUTRITION: NPO for now Follow up with GI -colonoscopy today KIDNEYS & ELECTROLYTES: Strict monitoring of intake and output Daily weights Avoid nephrotoxic agents Monitor electrolytes and replace as needed ENDOCRINE: Maintain blood glucose between 100-180 at all times. Insulin sliding scale for blood glucose management Hypoglycemia and hyperglycemia protocol in place INFECTIOUS DISEASE: Trend temperature, WBC Follow cultures, deescalate antibiotics as soon as possible. Follow up With the Infectious Disease -repeat urinalysis, urine and blood cultures, also obtain flu a and B HEMATOLOGY & COAGULATION: Monitor H&H. Keep Hgb > 7 Transfuse 1 unit of PRBC for Hgb < 7 Transfuse 1 pack of platelets of platelets < 20, 000 Watch for any signs and symptoms of bleeding Hematology, appreciate assistance SKIN: Pressure ulcer prevention per facility protocol Specialty mattress as needed ORTHO/REHAB Continue PT/OT PRN: MEDICATIONS Tylenol 650 mg po every 4 hrs for fever zofran 4 mg IV every 6 hrs for n/v Hydralazine 5 mg IV every 4 hrs systolic pressure > 160 bowel regiment: lactulose 20 gm PO BID PRN constipation Supportive measures: Continue GI and DVT prophylaxis All questions answered time spent: > 35 min ADALBERTO WHARTON IV, MD Dec 10, 2024 14:01
--- NOTE | 2024-12-10 14:41 | PN ---
PROGRESS NOTE Date of Service: Dec 10, 2024 Time of Service: 14:26 SUBJECTIVE: A 74-year-old male with diabetes mellitus, hypertension, and obesity, presented to the hospital with nausea and vomiting and mild body weakness. The patient also complained of fever. T-max in the emergency room was 100.8. Imaging has been done which showed the patient's gallbladder is dilated. 12/10 - Patient seen at bedside. Afebrile with no new complaints or concerns. No overnight acute events reported. EGD results from yesterday (12/09) show yanni ritis and small esophageal varices. Patient is currently NPO for pending colonoscopy. Patient pending physical therapy. REVIEW OF SYSTEMS CONSTITUTIONAL: Denies fever, chills, or fatigue. HEAD/FACE: No signs of trauma. EENT: Denies eye pain, blurred vision, double vision, or light sensitivity. RESPIRATORY: Denies shortness of breath, cough, wheezing CARDIOVASCULAR: Denies chest pain, palpitation, syncope GASTROINTESTINAL/ABDOMINAL: Denies abdominal pain, constipation, diarrhea, naus ea or vomiting GENITOURINARY: Denies dysuria or hematuria. MUSCULOSKELETAL: Denies joint pain, tenderness, or trauma. INTEGUMENTARY: Denies rash or itchiness NEUROLOGICAL/PSYCH: Denies anxiety, depression, heat or cold intolerance. PHYSICAL EXAM EYES: Anicteric. Pupils equal and reactive. HENT: No oral thrush seen, moist Oral mucosa NECK: Supple, no JVD or thyromegaly. LUNGS: No rales, no rhonchi. CARDIOVASCULAR: No murmur heard. ABDOMEN: Soft, non tender, bowel sounds present, no organomegaly CENTRAL NERVOUS SYSTEM: Awake, alert, oriented x 3. No focal deficits. SKIN: No rashes, no swelling. LYMPHATICS: No peripheral lymphadenopathy MUSCULOSKELETAL: No joint swelling, erythema, Mild tenderness. EXTREMITIES: No cyanosis or clubbing BACK: No deformity, no pressure ulcer. Vital Signs (last 8hr) Date Time Temp Pulse Resp B/P (MAP) Pulse Ox O2 Delivery O2 Flow Rate FiO2 12/10/24 08:00 98.2 74 15 128/68 95 Room Air LABS: Laboratory: Test 12/10/24 11:47 12/09/24 12:41 12/09/24 11:50 12/09/24 05:20 Range/Units Whole Blood Glucose 88 70-110 MG/DL Influenza Type A Antigen Negative For Type A NEGATIVE Influenza Type B Antigen Negative For Type B NEGATIVE Urine Color YELLOW YELLOW Urine Appearance CLEAR CLEAR Urine pH 5.5 5.0-8.0 Urine Specific [place] 1.022 1.001-1.031 Urine Protein 10 H NEGATIVE mg/dL Urine Glucose (UA) NEGATIVE NEGATIVE mg/dL Urine Ketones NEGATIVE NEGATIVE mg/dL Urine Occult Blood NEGATIVE NEGATIVE Urine Nitrate NEGATIVE NEGATIVE Urine Bilirubin 0.5 H NEGATIVE mg/dL Urine Urobilinogen 6 H 0.2-1.0 mg/dL Urine Leukocyte Esterase 250 H NEGATIVE Karon/uL Urine RBC 2-5 H 0-1 /HPF Urine WBC 11-25 H 0-1 /HPF Urine Squamous Epithelial Cells RARE 0-2 /HPF Urine Bacteria None None Seen /HPF White Blood Count 7.1 4.8-10.8 K/uL Red Blood Count 3.14 L 4.50-6.20 MIL/uL Hemoglobin 10.5 L 14.0-18.0 g/dL Hematocrit 28.7 L 42-54 % Mean Corpuscular Volume 91.4 79-99 fL Mean Corpuscular Hemoglobin 33.4 H 27.0-33.0 pg Mean Corpuscular Hemoglobin Concent 36.6 H 32.0-36.0 g/dL Red Cell Distribution Width 13.2 11.0-15.5 % Platelet Count 70 #L 130-400 K/uL Mean Platelet Volume 10.6 H 7.5-10.5 fL Nucleated Red Blood Cells 0.0 0.0-0.19 % Sodium Level 141 136-145 mmol/L Potassium Level 3.6 3.5-5.1 mmol/L Chloride Level 110 101-111 mmol/L Carbon Dioxide Level 22 21-32 mmol/L Blood Urea Nitrogen 23 H 7-18 mg/dL Creatinine 0.8 0.5-1.3 mg/dL Glomerular Filtration Rate Calc 93 >90 mL/min Random Glucose 84 70-105 mg/dL Total Calcium 7.4 L 8.5-10.1 mg/dL DIAGNOSTICS / RADIOLOGY: [ ] ASSESSMENT: 1. Anemia. Hemoglobin level 10.5 g/dL 2. Gram negative sepsis. 3. Urinary tract infection. 4. Possible cholecystitis. 5. Acute renal failure. 6. Hypertension. 7. Diabetes mellitus. 8. Thrombocytopenia 1. Peripheral blood smear showed red blood cells to be normocytic normochromic. There was no fragment cell or schistocyte. There is no teardrop cell. There is no rouleaux phenomena. There is no pelger-Huet cell. White blood cell with no blasts. There is decreased platelet number. There is large platelet consistent with peripheral consumption of the platelet. 2. continue on folic acid 1 mg p.o. daily and vitamin B12 1000 mcg p.o. daily. 3. Thrombocytopenia most likely due to cirrhosis of the liver and splenomegaly. Platelet count is 70K. There is no need for platelet transfusion. 4. Patient have EGD done. There is plan for colonoscopy to be done today. There is no need for transfusion of platelet Vitals/Labs PLAN: 1. Peripheral blood smear showed red blood cells to be normocytic normochromic. There was no fragment cell or schistocyte. There is no teardrop cell. There is no rouleaux phenomena. There is no pelger-Huet cell. White blood cell with no blasts. There is decreased platelet number. There is large platelet consistent with peripheral consumption of the platelet. 2. Continue on folic acid 1 mg p.o. daily and vitamin B12 1000 mcg p.o. daily. 3. Thrombocytopenia most likely due to cirrhosis of the liver and splenomegaly. Platelet count is 70K. There is no need for platelet transfusion. 4. Pending colonoscopy results. There is no need for transfusion of platelet 5. Recommend patient follow up in 6 weeks outpatient. Vitals/Labs ATTESTATION BY PHYSICIAN I have seen and examined the patient. I reviewed the documentation, medical decision making, and treatment plan as noted by the resident above. I agree with the findings and plan of care. Roque Pink MD, PRIYA N Dec 10, 2024 14:41
[2024-12-10] MEDS ORDERED: LIDOCAINE PF 100MG/5ML (2%) SYRINGE 5ML ONE (14:45)
[2024-12-10 16:36] LABS: NUCLEATED RED BLOOD CELLS 0.0 % (0.0-0.19); PLATELET COUNT (AUTO) 99.0 K/uL (130-400); RED BLOOD CELL COUNT(AUTO) 3.25 MIL/uL (4.50-6.20); RED CELL DISTRIBUTION WIDTH 13.2 % (11.0-15.5); WHITE BLOOD COUNT (AUTO) 6.2 K/uL (4.8-10.8)
[2024-12-10 16:48] LABS: CREATININE 0.7 mg/dL (0.5-1.3); GLOMERULAR FILTR. RATE CALC 97.0 mL/min (>90); GLUCOSE,RANDOM 81.0 mg/dL (70-105); SODIUM SERUM 143.0 mmol/L (136-145); UREA NITROGEN, BLOOD 17.0 mg/dL (7-18)
--- NOTE | 2024-12-10 20:19 | PN ---
INFECTIOUS DISEASE PROGRESS NOTE Date of Service: Dec 10, 2024 SUBJECTIVE: This is a 74-year-old male patient who is NPO for a scheduled for a colonoscopy for today. No nausea or vomiting during visit today. Family member present at bedside. No fever. We will continue on Meropenem. No other issues reported by nursing. PHYSICAL EXAM EYES: Anicteric. Pupils equal and reactive. HENT: No oral thrush seen, moist Oral mucosa NECK: Supple, no JVD or thyromegaly. LUNGS: Good air entry. No rales, no rhonchi. CARDIOVASCULAR: S1, S2 regular. No murmur heard. ABDOMEN: Soft and normal bowel sounds. CENTRAL NERVOUS SYSTEM: Awake, alert, oriented x 3. SKIN: No rashes, no swelling. LYMPHATICS: No peripheral lymphadenopathy. MUSCULOSKELETAL: No joint swelling, erythema or tenderness. EXTREMITIES: No cyanosis or clubbing. Generalized weakness. BACK: No deformity, no pressure ulcer. GENITOURINARY: No dysuria or hematuria. Vital Sign (Last 12 Hours) 12/10/24 12/10/24 12/10/24 12/10/24 09:00 14:52 14:52 15:16 Temp 97.9 Pulse 80 Resp 15 B/P (MAP) 116/58 Pulse Ox 96 100 O2 Delivery Room Air* Mask Mask Nonrebreathing Mask O2 Flow Rate 0 10.0 10.0 FiO2 21 100 12/10/24 12/10/24 12/10/24 12/10/24 15:21 15:26 15:31 15:36 Pulse 81 79 81 80 Resp 15 18 20 18 B/P (MAP) 119/63 118/64 127/60 130/56 Pulse Ox 100 100 96 94 O2 Delivery Nonrebreathing Mask Nonrebreathing Mask Room Air Room Air O2 Flow Rate 10.0 10.0 FiO2 100 100 21 21 12/10/24 12/10/24 12/10/24 12/10/24 15:41 15:46 15:50 16:05 Temp 97.9 97.7 97.7 Pulse 77 81 78 80 Resp 18 16 16 16 B/P (MAP) 132/60 128/62 140/97 125/70 Pulse Ox 94 94 95 95 O2 Delivery Room Air Room Air Room Air Room Air FiO2 21 21 12/10/24 12/10/24 12/10/24 12/10/24 16:20 16:40 17:10 17:40 Temp 97.7 Pulse 75 76 74 77 Resp 16 16 16 16 B/P (MAP) 147/68 149/71 152/67 150/74 Pulse Ox 95 95 95 95 O2 Delivery Room Air Room Air Room Air Room Air 12/10/24 12/10/24 18:40 20:18 Temp 97.7 98.6 Pulse 83 84 Resp 16 18 B/P (MAP) 128/55 121/55 Pulse Ox 95 93 O2 Delivery Room Air Room Air Intake & Output (last 24hrs) 12/09/24 12/09/24 12/10/24 15:00 23:00 07:00 Intake Total 30 ml 875 ml Balance 30 ml 875 ml LABS: Laboratory: Test 12/10/24 19:28 12/10/24 16:32 12/09/24 12:41 12/09/24 11:50 Range/Units Whole Blood Glucose 95 70-110 MG/DL White Blood Count 6.2 4.8-10.8 K/uL Red Blood Count 3.25 L 4.50-6.20 MIL/uL Hemoglobin 10.3 L 14.0-18.0 g/dL Hematocrit 30.2 L 42-54 % Mean Corpuscular Volume 92.9 79-99 fL Mean Corpuscular Hemoglobin 31.7 27.0-33.0 pg Mean Corpuscular Hemoglobin Concent 34.1 32.0-36.0 g/dL Red Cell Distribution Width 13.2 11.0-15.5 % Platelet Count 99 #L 130-400 K/uL Mean Platelet Volume 10.1 7.5-10.5 fL Nucleated Red Blood Cells 0.0 0.0-0.19 % Sodium Level 143 136-145 mmol/L Potassium Level 3.6 3.5-5.1 mmol/L Chloride Level 110 101-111 mmol/L Carbon Dioxide Level 25 21-32 mmol/L Blood Urea Nitrogen 17 7-18 mg/dL Creatinine 0.7 0.5-1.3 mg/dL Glomerular Filtration Rate Calc 97 >90 mL/min Random Glucose 81 70-105 mg/dL Total Calcium 7.8 L 8.5-10.1 mg/dL Influenza Type A Antigen Negative For Type A NEGATIVE Influenza Type B Antigen Negative For Type B NEGATIVE Urine Color YELLOW YELLOW Urine Appearance CLEAR CLEAR Urine pH 5.5 5.0-8.0 Urine Specific [place] 1.022 1.001-1.031 Urine Protein 10 H NEGATIVE mg/dL Urine Glucose (UA) NEGATIVE NEGATIVE mg/dL Urine Ketones NEGATIVE NEGATIVE mg/dL Urine Occult Blood NEGATIVE NEGATIVE Urine Nitrate NEGATIVE NEGATIVE Urine Bilirubin 0.5 H NEGATIVE mg/dL Urine Urobilinogen 6 H 0.2-1.0 mg/dL Urine Leukocyte Esterase 250 H NEGATIVE [place]/uL Urine RBC 2-5 H 0-1 /HPF Urine WBC 11-25 H 0-1 /HPF Urine Squamous Epithelial Cells RARE 0-2 /HPF Urine Bacteria None None Seen /HPF ASSESSMENT: E Coli bacteremia. Urinary tract infection with E coli. Sepsis. Streptococcus pharyngitis. Abdominal pain, s/p EGD with findings of acute gastritis, small esophageal varices and portal hypertensive gastropathy.. Thrombocytopenia. Dehydration. Diabetes mellitus. Acute renal failure, resolved. PLAN: Continue Meropenem. Continue GI prophylaxis. Continue antidiabetics. Avoid nephrotoxic medications. Patient is NPO for a scheduled for colonoscopy for today. This case was reviewed and discussed with my supervising physician Dr. Gandhi and the above assessment and plan was formulated and agreed upon. ATTESTATION BY PHYSICIAN I have seen and examined the patient. I reviewed the documentation, medical decision making, and treatment plan as noted by the mid-level provider above. I agree with the findings and plan of care. MAURICIO GANDHI MD, [facility] Dec 10, 2024 20:19
--- NOTE | 2024-12-10 22:22 | PN ---
CARDIOLOGY Reason for consult: Atrial flutter HPI/story at presentation: This is a pleasant 74 male with past medical history as below presents with complaints of gram-negative bacteremia sepsis and is currently, s/p pressors and resolution of sepsis, moved to the floor. Had another atrial flutter and therefore, cardiology was consulted for evaluation and management Past medical history: See below Allergies, Meds See chart Review of systems Review of Systems Constitutional: Negative for chills and fever. HENT: Negative for ear discharge and ear pain. Eyes: Negative for photophobia and discharge. Respiratory: Negative for cough, sputum production and stridor. Cardiovascular: Negative for chest pain and palpitations. Gastrointestinal: Negative for diarrhea and vomiting. Genitourinary: Negative for frequency. Musculoskeletal: Negative for myalgias. Skin: Negative for rash. Neurological: Negative for focal weakness and seizures. Endo/Heme/Allergies: Negative for polydipsia. Psychiatric/Behavioral: Negative for hallucinations. Vitals see chart PHYSICAL EXAMINATION GENERAL: The patient is alert and oriented*3 HEENT: Nonicteric sclerae, non traumatic HEART: Regular rate and rhythm with no murmurs LUNGS: Clear to auscultation bilaterally ABDOMEN: No acute issues, non tender GENITAL, RECTAL: deferred SKIN: No rash NEUROLOGIC: NFND EXTREMITIES: No edema ASSESSMENT ATRIAL FLUTTER newly diagnosed, 12/27 Rate controlled, 12/2024 SEPSIS, CYSTITIS At presentation, Resolved Associated gram-negative bacteremia THROMBOCYTOPENIA Anticoagulation on hold in the setting ACUTE KIDNEY INJURY At presentation Resolved DIABETES CORE MEASURES OTHER MEDICAL PROBLEMS Biliary stones, fatty liver, umbilical hernia, history of right colectomy, ileocolonic anastomosis, cholelithiasis Moderate degenerative disc disease PLAN 12/06/2024 no active cardiac complaints at this time, has returned to normal sinus rhythm. May continue anticoagulation if platelets improve. On rate control. Seen and examined 12/06/2024 at around 3:30 PM. 12/07/2024 No active cardiac complaints at this time, blood cultures are positive for E. coli are currently on IV antibiotics, ongoing issues with thrombocytopenia, platelets being provided prior to EGD. On beta-blockers, not on anticoagulation at this time until platelets improve. Will follow perioperatively. Echocardiogram was previously with normal ejection fraction. Seen and examined 12/07/2024 around 8 PM. 12/09/2024 Doing well, patient underwent EGD with evidence of gastritis and varices, plans for colonoscopy noted. Seen and examined 12/09/2024 at around 8 PM 12/10/2024 Colonoscopy with evidence of multiple polyps, appreciate primary team and being followed by GI as well. Currently, no active cardiovascular issues. Currently also on metoprolol for rate control. Not on anticoagulation at this time. MRCP being evaluated as well. Seen and examined 12/10/2024 around 8 PM. ATTESTATION I was involved substantially in the care of this patient Number and complexity of problems addressed: 1 acute illness with systemic features Amount and or complexity of data Review of prior external note(s) from each unique source: 2+ Ordering of each unique test : 0 Review of the result(s) of each unique test: 2+ Assessment requiring an independent historian(s): No Independent interpretation of test performed by another MD/QHCP/appropriate source (not separately reported) : No Discussion of management or test interpretation with external MD/QHCP/appropriate source (not separately reported) : No Risk status (cardiac, billing related): Moderate Vitals/Labs Vital Signs Date Time Temp Pulse Resp B/P (MAP) Pulse Ox O2 Delivery O2 Flow Rate FiO2 12/10/24 20:18 98.6 84 18 121/55 93 Room Air 12/10/24 15:46 21 12/10/24 15:26 10.0 Laboratory Tests 12/10/24 16:32 Medications Current Medications Ondansetron HCl 4 mg ONCE ONCE IVP Last administered on 12/04/24at 07:40; Start 12/04/24 at 07:30; Stop 12/04/24 at 07:31; Status DC Lactated Ringer's 1,000 ml BOLUS STAT IV Last administered on 12/04/24at 07:40; Start 12/04/24 at 07:07; Stop 12/04/24 at 07:14; Status DC Acetaminophen 1,000 mg ONCE ONCE PO Last administered on 12/04/24at 08:29; Start 12/04/24 at 08:30; Stop 12/04/24 at 08:31; Status DC Piperacillin Sod/ Tazobactam Sod 3.375 gm ONCE ONCE IV Last administered on 12/04/24at 09:35; Start 12/04/24 at 09:30; Stop 12/04/24 at 09:31; Status DC Sodium Chloride 1,000 ml @ 125 mls/hr ONCE ONCE IV Last administered on 12/04/24at 09:35; Start 12/04/24 at 09:30; Stop 12/04/24 at 17:29; Status DC Insulin Human Regular INSULIN SLIDING SCAL... ACHS SQ Last administered on 12/07/24at 12:39; Start 12/04/24 at 11:30; Stop 01/03/25 at 11:29 Dextrose 50 ml AD PRN IV; Start 12/04/24 at 11:00; Stop 01/03/25 at 10:59 Glucagon 1 mg AD PRN IM; Start 12/04/24 at 11:00; Stop 01/03/25 at 10:59 Potassium Chloride 100 ml @ 100 mls/hr AD PRN IV; Start 12/04/24 at 11:00; Stop 01/03/25 at 10:59 Potassium Chloride 10 meq AD PRN PO Last administered on 12/09/24at 06:48; Start 12/04/24 at 11:00; Stop 01/03/25 at 10:59 Potassium Chloride 10 meq AD PRN PO; Start 12/04/24 at 11:00; Stop 12/05/24 at 06:30; Status DC Magnesium Sulfate 50 ml @ 0 mls/hr PROTOCOL PRN IV Last administered on 12/07/24at 12:30; Start 12/04/24 at 11:00; Stop 01/03/25 at 10:59 Diphenhydramine HCl 25 mg Q4H PRN PO; Start 12/04/24 at 11:00; Stop 01/03/25 at 10:59 Acetaminophen 650 mg Q6H PRN PO; Start 12/04/24 at 11:00; Stop 01/03/25 at 10:59 Acetaminophen 650 mg Q4H PRN PO; Start 12/04/24 at 11:00; Stop 12/04/24 at 10:57; Status DC Ondansetron HCl 4 mg Q6H PRN IV; Start 12/04/24 at 11:00; Stop 01/03/25 at 10:59 Zolpidem Tartrate 5 mg HS PRN PO; Start 12/04/24 at 11:00; Stop 01/03/25 at 10:59 Al Hydroxide/Mg Hydroxide 30 ml Q6H PRN PO; Start 12/04/24 at 11:00; Stop 01/03/25 at 10:59 Lactulose 20 gm BID PRN PO; Start 12/04/24 at 11:00; Stop 01/03/25 at 10:59 Nitroglycerin 0.4 mg PROTOCOL PRN SL; Start 12/04/24 at 11:00; Stop 01/03/25 at 10:59 Guaifenesin/ Dextromethorphan 10 ml Q4H PRN PO; Start 12/04/24 at 11:00; Stop 01/03/25 at 10:59 Famotidine 20 mg BID PRN IV; Start 12/04/24 at 11:00; Stop 12/04/24 at 10:57; Status DC Heparin Sodium (Porcine) 5,000 unit BID SQ Last administered on 12/04/24at 22:19; Start 12/04/24 at 21:00; Stop 12/06/24 at 08:45; Status DC Acetaminophen 650 mg Q6H PRN PO Last administered on 12/10/24at 01:52; Start 12/04/24 at 11:00; Stop 01/03/25 at 10:59 Ketorolac Tromethamine 15 mg Q8H PRN IV Last administered on 12/08/24at 20:20; Start 12/04/24 at 11:00; Stop 12/09/24 at 10:59; Status DC Morphine Sulfate 1 mg Q4H PRN IVP Last administered on 12/08/24at 17:34; Start 12/04/24 at 11:00; Stop 12/09/24 at 13:59; Status DC Vancomycin HCl 250 ml @ 125 mls/hr ONCE IV Last administered on 12/04/24at 11:00; Start 12/04/24 at 11:00; Stop 12/04/24 at 12:59; Status DC Piperacillin Sod/ Tazobactam Sod 50 ml @ 12.5 mls/hr Q8H IV Last administered on 12/04/24at 17:09; Start 12/04/24 at 17:30; Stop 12/04/24 at 21:34; Status DC Sodium Chloride 1,000 ml @ 100 mls/hr Q10H IV Last administered on 12/06/24at 02:46; Start 12/04/24 at 11:00; Stop 12/06/24 at 12:47; Status DC Hydralazine HCl 10 mg Q6H PRN IV; Start 12/04/24 at 11:00; Stop 12/04/24 at 13:13; Status DC Famotidine 20 mg Q24H IV Last administered on 12/07/24at 21:32; Start 12/04/24 at 21:00; Stop 12/08/24 at 15:45; Status DC Vancomycin HCl 250 ml @ 125 mls/hr Q24H IV Last administered on 12/05/24at 11:57; Start 12/05/24 at 11:00; Stop 12/05/24 at 13:42; Status DC Norepinephrine 250 ml @ 0 mls/hr PROTOCOL STAT IV Last administered on 12/04/24at 13:12; Start 12/04/24 at 12:14; Stop 12/04/24 at 12:18; Status DC Gadoterate Meglumine 10 mmol STK-MED ONCE IV; Start 12/04/24 at 12:59; Stop 12/04/24 at 12:59; Status DC Cefepime HCl 1 gm Q8H IVPB Last administered on 12/05/24at 00:15; Start 12/04/24 at 16:00; Stop 12/05/24 at 06:31; Status DC Norepinephrine 250 ml @ 0 mls/hr PROTOCOL IV Last administered on 12/05/24at 14:03; Start 12/04/24 at 17:17; Stop 01/03/25 at 17:16 Potassium Chloride 10 meq AD PRN PO Last administered on 12/09/24at 08:09; Start 12/05/24 at 07:00; Stop 01/03/25 at 10:59 Cefepime HCl 1 gm Q12H IVPB; Start 12/05/24 at 12:00; Stop 12/05/24 at 13:42; Status DC Pharmacy Profile Note 1 each ONCE MISC; Start 12/05/24 at 14:00; Stop 12/05/24 at 13:51; Status DC Meropenem 1 gm Q12H IVPB Last administered on 12/10/24at 16:53; Start 12/05/24 at 14:00; Stop 12/15/24 at 13:59 Lactated Ringer's 1,000 ml @ 75 mls/hr [id number] IV Last administered on 12/09/24at 21:00; Start 12/06/24 at 13:00; Stop 01/05/25 at 12:59 Acetaminophen 650 mg ONCE ONCE PO Last administered on 12/06/24at 13:02; Start 12/06/24 at 13:00; Stop 12/06/24 at 13:01; Status DC Metoprolol Tartrate 12.5 mg BID PO Last administered on 12/10/24at 20:28; Start 12/06/24 at 21:00; Stop 01/05/25 at 20:59 Potassium Chloride 40 meq ONCE ONCE PO Last administered on 12/07/24at 08:45; Start 12/07/24 at 08:00; Stop 12/07/24 at 08:01; Status DC Potassium Chloride 100 ml @ 50 mls/hr ONCE ONCE IV Last administered on 12/07/24at 08:45; Start 12/07/24 at 08:00; Stop 12/07/24 at 09:59; Status DC Propofol 200 mg STK-MED ONCE IV; Start 12/08/24 at 14:19; Stop 12/08/24 at 14:19; Status DC Lidocaine HCl 100 mg STK-MED ONCE .ROUTE; Start 12/08/24 at 14:19; Stop 12/08/24 at 14:20; Status DC Pantoprazole Sodium 40 mg DAILY PO Last administered on 12/09/24at 08:09; Start 12/09/24 at 09:00; Stop 01/08/25 at 08:59 Polyethylene Glycol/ Electrolytes 4,000 ml ONCE ONCE PO Last administered on 12/09/24at 19:21; Start 12/09/24 at 19:00; Stop 12/09/24 at 19:02; Status DC Propofol 200 mg STK-MED ONCE IV; Start 12/10/24 at 14:43; Stop 12/10/24 at 14:42; Status DC Lidocaine HCl 100 mg STK-MED ONCE .ROUTE; Start 12/10/24 at 14:45; Stop 12/10/24 at 14:45; Status DC KENIA JOHNSON MD Dec 10, 2024 22:22
[2024-12-11] VITALS (8 sets, daily range): BP systolic 119–147; BP diastolic 56–70; PULSE 70–94; RESP 15–18; TEMP 97.9–98.3; O2SAT 96–97
--- NOTE | 2024-12-11 10:19 | PN ---
[facility] PROGRESS NOTE Date of Service: Dec 11, 2024 Time of Service: 10:19 SUBJECTIVE: Patient evaluated in the room today. He is status post EGD and colonoscopy. No new complaints or concerns reported. Denies chest pain, shortness of breath, nausea, vomiting, or abdominal pain. REVIEW OF SYSTEMS CONSTITUTIONAL: Denies fevers, chills, or night sweats. No unintentional weight loss reported. Complains of generalized body weakness NEUROLOGICAL: Denies headache, amaurosis fugax, motor weakness, sensory deficit, vertigo/spinning sensation, gait abnormalities, or tremors. ENT: No hearing loss, otalgia, otorrhea, rhinitis, rhinorrhea, hoarseness, or sore throat. CARDIOVASCULAR: Denies any exertional angina, dyspnea on exertion, orthopnea, paroxysmal nocturnal dyspnea, palpitations, life-threatening arrhythmias, claudication. PULMONARY: Denies any shortness of breath, cough, phlegm/sputum, hemoptysis, pleuritic chest pain. SLEEP: Denies morning headaches, daytime somnolence or napping. Denies difficulty falling asleep, staying asleep, waking from sleep. Denies knowledge of snoring. GASTROINTESTINAL: Denies any type of dysphagia to either liquids or solids. Denies , pyrosis, early satiety, abdominal pain, diarrhea, constipation, or changes in stool consistency or caliber. Denies coffee-ground emesis, hematemes is, hematochezia, or melanotic stools. Complains of nausea and vomiting GENITOURINARY: Denies frequency, urgency, nocturia, hematuria or incontinence (Storage/Irritative symptoms.) Low urinary stream, straining to void, urinary intermittency or hesitancy, splitting of the voiding stream, terminal dribbling. ENDOCRINOLOGIC: Denies polyuria, polydipsia, polyphagia or heat/cold intolerances. HEMATOLOGIC: Denies thrombophilia/previous clots, or coagulopathy/bleeding disorders. ONCOLOGIC: Denies personal history of malignancy. DERMATOLOGIC: Denies rashes or pruritus. PSYCHIATRIC: Denies any suicidal or homicidal ideation. Denies hallucinations. PHYSICAL EXAM GENERAL APPEARANCE: The patient is awake, alert, and oriented, in no acute cardiopulmonary distress. NEUROLOGICAL: Cranial nerves II-XII grossly intact. Motor is 5/5 in bilateral upper and lower extremities proximal to distal. No sensory deficits. HEENT: Face is symmetric. Pupils are equal and reactive. Extraocular movements are intact. NECK: Supple. No JVD. No thyromegaly. No submental, submandibular, pre- /postauricular, occipital or supraclavicular lymphadenopathy. CHEST: Normal chest expansion. No Telemetry. LUNGS: Absence of any rales, rhonchi or any wheezing. CARDIOVASCULAR: Regular. S1 and S2 normal. No appreciable rubs, murmurs or g allops. ABDOMEN: Soft, nontender, and nondistended. There is no rebound, voluntary gua rding, or rigidity. : Deferred. No Mariano. EXTREMITIES: Non-edematous and not cyanotic. No clubbing. Good capillary refill. SKIN: No skin breakdown. Vital Signs (last 8hr) Date Time Temp Pulse Resp B/P (MAP) Pulse Ox O2 Delivery O2 Flow Rate FiO2 12/11/24 08:00 98.2 71 16 139/65 97 Room Air 12/11/24 04:17 98.2 73 18 119/60 95 Room Air LABS: Laboratory: Test 12/11/24 05:25 12/10/24 16:32 12/09/24 12:41 12/09/24 11:50 Range/Units Whole Blood Glucose 79 70-110 MG/DL White Blood Count 6.2 4.8-10.8 K/uL Red Blood Count 3.25 L 4.50-6.20 MIL/uL Hemoglobin 10.3 L 14.0-18.0 g/dL Hematocrit 30.2 L 42-54 % Mean Corpuscular Volume 92.9 79-99 fL Mean Corpuscular Hemoglobin 31.7 27.0-33.0 pg Mean Corpuscular Hemoglobin Concent 34.1 32.0-36.0 g/dL Red Cell Distribution Width 13.2 11.0-15.5 % Platelet Count 99 #L 130-400 K/uL Mean Platelet Volume 10.1 7.5-10.5 fL Nucleated Red Blood Cells 0.0 0.0-0.19 % Sodium Level 143 136-145 mmol/L Potassium Level 3.6 3.5-5.1 mmol/L Chloride Level 110 101-111 mmol/L Carbon Dioxide Level 25 21-32 mmol/L Blood Urea Nitrogen 17 7-18 mg/dL Creatinine 0.7 0.5-1.3 mg/dL Glomerular Filtration Rate Calc 97 >90 mL/min Random Glucose 81 70-105 mg/dL Total Calcium 7.8 L 8.5-10.1 mg/dL Influenza Type A Antigen Negative For Type A NEGATIVE Influenza Type B Antigen Negative For Type B NEGATIVE Urine Color YELLOW YELLOW Urine Appearance CLEAR CLEAR Urine pH 5.5 5.0-8.0 Urine Specific [place] 1.022 1.001-1.031 Urine Protein 10 H NEGATIVE mg/dL Urine Glucose (UA) NEGATIVE NEGATIVE mg/dL Urine Ketones NEGATIVE NEGATIVE mg/dL Urine Occult Blood NEGATIVE NEGATIVE Urine Nitrate NEGATIVE NEGATIVE Urine Bilirubin 0.5 H NEGATIVE mg/dL Urine Urobilinogen 6 H 0.2-1.0 mg/dL Urine Leukocyte Esterase 250 H NEGATIVE Karon/uL Urine RBC 2-5 H 0-1 /HPF Urine WBC 11-25 H 0-1 /HPF Urine Squamous Epithelial Cells RARE 0-2 /HPF Urine Bacteria None None Seen /HPF Current Medications Medications (Trade) Dose Ordered Sig/Panchito Route PRN Reason Start Time Stop Time Status Last Admin Dose Admin Acetaminophen (TYLenol 325MG TAB) 650 mg Q4H PRN PO MILD PAIN (1-3) 12/04/24 11:00 12/04/24 10:57 DC Acetaminophen (TYLenol 325MG TAB) 650 mg Q6H PRN PO MILD PAIN (1-3) 12/04/24 11:00 01/03/25 10:59 12/11/24 01:26 650 MG Acetaminophen (TYLenol 325MG TAB) 650 mg Q6H PRN PO TEMPERATURE GREATER THAN 101.5 12/04/24 11:00 01/03/25 10:59 Al Hydroxide/Mg Hydroxide (MAALox PLUS 30ML) 30 ml Q6H PRN PO INDIGESTION 12/04/24 11:00 01/03/25 10:59 Cefepime HCl (MAXipime 1 GM vial) 1 gm Q12H IVPB 12/05/24 12:00 12/05/24 13:42 DC Cefepime HCl (MAXipime 1 GM vial) 1 gm Q8H IVPB 12/04/24 16:00 12/05/24 06:31 DC 12/05/24 00:15 1 GM Dextrose (D50w) 50 ml AD PRN IV HYPOGLYCEMIA PROTOCOL 12/04/24 11:00 01/03/25 10:59 Diphenhydramine HCl (BENAdryl CAP) 25 mg Q4H PRN PO MILD ITCHING/RASH 12/04/24 11:00 01/03/25 10:59 Famotidine (Pepcid 20mg Vial) 20 mg BID PRN IV NAUSEA/VOMITING 12/04/24 11:00 12/04/24 10:57 DC Famotidine (Pepcid 20mg Vial) 20 mg Q24H IV 12/04/24 21:00 12/08/24 15:45 DC 12/07/24 21:32 20 MG Glucagon (Glucagon 1mg Kit) 1 mg AD PRN IM HYPOGLYCEMIA PROTOCOL 12/04/24 11:00 01/03/25 10:59 Guaifenesin/ Dextromethorphan (RobiTUSSin DM 200/20MG 10ML) 10 ml Q4H PRN PO COUGH 12/04/24 11:00 01/03/25 10:59 Heparin Sodium (Porcine) (HEParin 5,000 UNIT VIAL) 5,000 unit BID SQ 12/04/24 21:00 12/06/24 08:45 DC 12/04/24 22:19 5,000 UNIT Hydralazine HCl (APRESOLine 20MG INJ) 10 mg Q6H PRN IV For:SBP above 160;DBP above 90 12/04/24 11:00 12/04/24 13:13 DC Insulin Human Regular (humuLIN R 100 UNIT/ML 3ML) INSULIN SLIDING SCAL... ACHS SQ 12/04/24 11:30 01/03/25 11:29 12/07/24 12:39 4 UNIT Ketorolac Tromethamine (toRADol) 15 mg Q8H PRN IV MODERATE PAIN (4-6) 12/04/24 11:00 12/09/24 10:59 DC 12/08/24 20:20 15 MG Lactated Ringer's 1,000 ml @ 75 mls/hr [id number] IV 12/06/24 13:00 01/05/25 12:59 12/09/24 21:00 75 MLS/HR Lactated Ringer's (Lactated Ringers 1000ml) 1,000 ml BOLUS STAT IV 12/04/24 07:07 12/04/24 07:14 DC 12/04/24 07:40 1,000 ML Lactulose (Constulose 20gm/ 30ml Udcup) 20 gm BID PRN PO CONSTIPATION 12/04/24 11:00 01/03/25 10:59 Magnesium Sulfate 50 ml @ 0 mls/hr PROTOCOL PRN IV OTHER [SEE ORDER COMMENTS] 12/04/24 11:00 01/03/25 10:59 12/07/24 12:30 20 MLS/HR Meropenem (Merrem 1gm) 1 gm Q12H IVPB 12/05/24 14:00 12/15/24 13:59 12/11/24 01:16 1 GM Metoprolol Tartrate (loprESSOR) 12.5 mg BID PO 12/06/24 21:00 01/05/25 20:59 12/11/24 09:30 12.5 MG Morphine Sulfate (morPHINE 4MG SYG) 1 mg Q4H PRN IVP SEVERE PAIN (7-10) 12/04/24 11:00 12/09/24 13:59 DC 12/08/24 17:34 1 MG Nitroglycerin (Nitrostat) 0.4 mg PROTOCOL PRN SL CHEST PAIN 12/04/24 11:00 01/03/25 10:59 Norepinephrine 250 ml @ 0 mls/hr PROTOCOL IV 12/04/24 17:17 01/03/25 17:16 12/05/24 14:03 3.09 MLS/HR Norepinephrine 250 ml @ 0 mls/hr PROTOCOL STAT IV 12/04/24 12:14 12/04/24 12:18 DC 12/04/24 13:12 0.1 MLS/HR Ondansetron HCl (zoFRAN 4MG INJ) 4 mg Q6H PRN IV NAUSEA/VOMITING 12/04/24 11:00 01/03/25 10:59 Pantoprazole Sodium (PROTonix 40MG TAB) 40 mg DAILY PO 12/09/24 09:00 01/08/25 08:59 12/11/24 09:30 40 MG Pharmacy Profile Note (Pharmacy Communication) 1 each ONCE MISC 12/05/24 14:00 12/05/24 13:51 DC Piperacillin Sod/ Tazobactam Sod 50 ml @ 12.5 mls/hr Q8H IV 12/04/24 17:30 12/04/24 21:34 DC 12/04/24 17:09 12.5 MLS/HR Potassium Chloride 100 ml @ 100 mls/hr AD PRN IV POTASSIUM PROTOCOL 12/04/24 11:00 01/03/25 10:59 Potassium Chloride (K-Dur 10meq Sr Tab) 10 meq AD PRN PO POTASSIUM PROTOCOL 12/05/24 07:00 01/03/25 10:59 12/11/24 09:31 10 MEQ Potassium Chloride (K-Dur/Klor-Con 20meq) 10 meq AD PRN PO POTASSIUM PROTOCOL 12/04/24 11:00 12/05/24 06:30 DC Potassium Chloride (KCl 10% Elixir 20meq/15ml) 10 meq AD PRN PO POTASSIUM PROTOCOL 12/04/24 11:00 01/03/25 10:59 12/09/24 06:48 10 MEQ Sodium Chloride 1,000 ml @ 100 mls/hr Q10H IV 12/04/24 11:00 12/06/24 12:47 DC 12/06/24 02:46 100 MLS/HR Vancomycin HCl 250 ml @ 125 mls/hr ONCE IV 12/04/24 11:00 12/04/24 12:59 DC 12/04/24 11:00 125 MLS/HR Vancomycin HCl 250 ml @ 125 mls/hr Q24H IV 12/05/24 11:00 12/05/24 13:42 DC 12/05/24 11:57 125 MLS/HR Zolpidem Tartrate (AmbIEN) 5 mg HS PRN PO INSOMNIA 12/04/24 11:00 01/03/25 10:59 DIAGNOSTICS / RADIOLOGY: [ ] ASSESSMENT: Septic shock, POA bacteremia due to E coli, POA UTI due to E coli, POA Generalized body weakness POA Intractable nausea and vomiting POA Acute kidney injury POA Acute dehydration POA Right flank pain POA Left intrahepatic biliary duct measuring [address] ultrasound abdomen POA Cholelithiasis per ultrasound abdomen POA Fatty liver per CT abdomen/pelvis POA Umbilical hernia per CT abdomen/pelvis POA Moderate degenerative disc disease of the spine per CT abdomen/pelvis POA Uncontrolled diabetes mellitus type 2 with hypoglycemia POA Hypotension POA Acute complicated cystitis POA Acute multifactorial anemia POA Hyperlipidemia POA Obesity POA History of polyp removal 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 Monitor for any new symptoms or complications. Await colonoscopy results. Continue to monitor labs, including platelets. Maintain NPO status as indicated. Not a candidate for discharge at this time due to ongoing need for IV antibiotics. Continue supportive care and monitoring. Case seen and examined with Dr. Pulido above plan was formulated ATTESTATION BY PHYSICIAN I have seen and examined the patient. I reviewed the documentation, medical decision making, and treatment plan as noted by the mid-level provider above. I agree with the findings and plan of care. Amanda Pulido MD, [facility] Dec 11, 2024 10:19
[2024-12-11 11:11] LABS: NUCLEATED RED BLOOD CELLS 0.0 % (0.0-0.19); PLATELET COUNT (AUTO) 127.0 K/uL (130-400); RED BLOOD CELL COUNT(AUTO) 3.42 MIL/uL (4.50-6.20); RED CELL DISTRIBUTION WIDTH 13.2 % (11.0-15.5); WHITE BLOOD COUNT (AUTO) 6.9 K/uL (4.8-10.8)
[2024-12-11 11:17] LABS: CREATININE 0.7 mg/dL (0.5-1.3); GLOMERULAR FILTR. RATE CALC 97.0 mL/min (>90); GLUCOSE,RANDOM 102.0 mg/dL (70-105); SODIUM SERUM 142.0 mmol/L (136-145); UREA NITROGEN, BLOOD 17.0 mg/dL (7-18)
--- NOTE | 2024-12-11 12:26 | PN ---
INFECTIOUS DISEASE PROGRESS NOTE Date of Service: Dec 11, 2024 SUBJECTIVE: This is a 74-year-old male patient who is status post a colonoscopy with findings of polyps, diverticulosis and internal hemorrhoids. We will start hemorrhoids suppository as recommended by GI. Hemoglobin is stable at 11.1. No fever, temperature is 98.2. We will continue on Meropenem. No other issues reported by nursing. PHYSICAL EXAM EYES: Anicteric. Pupils equal and reactive. HENT: No oral thrush seen, moist Oral mucosa NECK: Supple, no JVD or thyromegaly. LUNGS: Good air entry. No rales, no rhonchi. CARDIOVASCULAR: S1, S2 regular. No murmur heard. ABDOMEN: Soft and normal bowel sounds. CENTRAL NERVOUS SYSTEM: Awake, alert, oriented x 3. SKIN: No rashes, no swelling. LYMPHATICS: No peripheral lymphadenopathy. MUSCULOSKELETAL: No joint swelling, erythema or tenderness. EXTREMITIES: No cyanosis or clubbing. Generalized weakness. BACK: No deformity, no pressure ulcer. GENITOURINARY: No dysuria or hematuria. Vital Sign (Last 12 Hours) 12/11/24 12/11/24 04:17 08:00 Temp 98.2 98.2 Pulse 73 71 Resp 18 16 B/P (MAP) 119/60 139/65 Pulse Ox 95 97 O2 Delivery Room Air Room Air Intake & Output (last 24hrs) 12/10/24 12/10/24 12/11/24 15:00 23:00 07:00 Intake Total 400 ml 240 ml Output Total 800 ml Balance -400 ml 240 ml LABS: Laboratory: Test 12/11/24 11:04 12/11/24 10:51 12/09/24 12:41 Range/Units Whole Blood Glucose 111 H 70-110 MG/DL White Blood Count 6.9 4.8-10.8 K/uL Red Blood Count 3.42 L 4.50-6.20 MIL/uL Hemoglobin 11.1 L 14.0-18.0 g/dL Hematocrit 31.3 L 42-54 % Mean Corpuscular Volume 91.5 79-99 fL Mean Corpuscular Hemoglobin 32.5 27.0-33.0 pg Mean Corpuscular Hemoglobin Concent 35.5 32.0-36.0 g/dL Red Cell Distribution Width 13.2 11.0-15.5 % Platelet Count 127 #L 130-400 K/uL Mean Platelet Volume 10.1 7.5-10.5 fL Nucleated Red Blood Cells 0.0 0.0-0.19 % Sodium Level 142 136-145 mmol/L Potassium Level 3.8 3.5-5.1 mmol/L Chloride Level 109 101-111 mmol/L Carbon Dioxide Level 25 21-32 mmol/L Blood Urea Nitrogen 17 7-18 mg/dL Creatinine 0.7 0.5-1.3 mg/dL Glomerular Filtration Rate Calc 97 >90 mL/min Random Glucose 102 70-105 mg/dL Total Calcium 7.9 L 8.5-10.1 mg/dL Influenza Type A Antigen Negative For Type A NEGATIVE Influenza Type B Antigen Negative For Type B NEGATIVE ASSESSMENT: E Coli bacteremia. Urinary tract infection with E coli. Sepsis. Streptococcus pharyngitis. Abdominal pain, s/p colonoscopy with findings of polyps, diverticulosis and internal hemorrhoids. Thrombocytopenia, resolving. Dehydration. Diabetes mellitus. PLAN: Continue Meropenem. Continue GI prophylaxis. Continue antidiabetics. Continue pain management. Start Anusol suppositories as recommended by GI. This case was reviewed and discussed with my supervising physician Dr. Gandhi and the above assessment and plan was formulated and agreed upon. ATTESTATION BY PHYSICIAN I have seen and examined the patient. I reviewed the documentation, medical decision making, and treatment plan as noted by the mid-level provider above. I agree with the findings and plan of care. MAURICIO GANDHI MD, [facility] Dec 11, 2024 12:26
--- NOTE | 2024-12-11 13:25 | PN ---
A 74-year-old male with diabetes mellitus, hypertension, obesity, presented to the hospital with nausea and vomiting and mild body weakness. The patient also complained of fever. T-max in the emergency room was 100.8. Imaging has been done. The patient's gallbladder is dilated. The patient is scheduled to undergo MRCP which has been done but pending official report. EGD was done. Colonoscopy was done with the patient have significant number of polypectomy. Patient is stable and he want to be discharged home. PHYSICAL EXAMINATION: VITAL SIGNS: There is no fever. Temperature 98.4, pulse 85, respiratory rate 18, blood pressure 130/86. EYES: No icterus. No conjunctival hemorrhage. HENT: No oral thrush seen. Moist oral mucosa. NECK: Supple. No JVD or thyromegaly. LUNGS: Good air entry. No rales, no rhonchi. CARDIOVASCULAR: S1 and S2. Regular. No murmur heard. ABDOMEN: Soft. Bowel sound is present. CENTRAL NERVOUS SYSTEM: Awake, alert, oriented x3. No focal deficits. SKIN: No rashes. LYMPHATIC: No peripheral lymphadenopathy. MUSCULOSKELETAL: No joint swelling. There is mild tenderness. ASSESSMENT: 1. Anemia. Hemoglobin level 10.5 g/deciliter 2. Gram negative sepsis. 3. Urinary tract infection. 4. Possible cholecystitis. 5. Acute renal failure. 6. Hypertension. 7. betes mellitus. 8. Thrombocytopenia Plan 1. Peripheral blood smear showed red blood cells to be normocytic normochromic. There was no fragment cell or schistocyte. There is no teardrop cell. There is no rouleaux phenomena. There is no pelger-Huet cell. White blood cell with no blasts. There is decreased platelet number. There is large platelet consistent with peripheral consumption of the platelet. 2. continue on folic acid 1 mg p.o. daily and vitamin B12 1000 mcg p.o. daily. 3. Thrombocytopenia most likely due to cirrhosis of the liver and splenomegaly. Platelet count is 70K. There is no need for platelet transfusion. 4. Patient have EGD done. This patient have colonoscopy done which showed multiple polyps status post polypectomy. Will follow-up with the result of the pathology. 5. This patient stable and he could be discharged from my point of view on iron 325mg 1 tablet every other day Vitals/Labs Vital Signs Date Time Temp Pulse Resp B/P (MAP) Pulse Ox O2 Delivery O2 Flow Rate FiO2 12/11/24 12:00 98.2 70 15 130/56 96 Room Air 12/10/24 20:00 0 21 Laboratory Tests 12/10/24 16:32 12/11/24 10:51 Medications Current Medications Ondansetron HCl 4 mg ONCE ONCE IVP Last administered on 12/04/24at 07:40; Start 12/04/24 at 07:30; Stop 12/04/24 at 07:31; Status DC Lactated Ringer's 1,000 ml BOLUS STAT IV Last administered on 12/04/24at 07:40; Start 12/04/24 at 07:07; Stop 12/04/24 at 07:14; Status DC Acetaminophen 1,000 mg ONCE ONCE PO Last administered on 12/04/24at 08:29; Start 12/04/24 at 08:30; Stop 12/04/24 at 08:31; Status DC Piperacillin Sod/ Tazobactam Sod 3.375 gm ONCE ONCE IV Last administered on 12/04/24at 09:35; Start 12/04/24 at 09:30; Stop 12/04/24 at 09:31; Status DC Sodium Chloride 1,000 ml @ 125 mls/hr ONCE ONCE IV Last administered on 12/04/24at 09:35; Start 12/04/24 at 09:30; Stop 12/04/24 at 17:29; Status DC Insulin Human Regular INSULIN SLIDING SCAL... ACHS SQ Last administered on 12/07/24at 12:39; Start 12/04/24 at 11:30; Stop 01/03/25 at 11:29 Dextrose 50 ml AD PRN IV; Start 12/04/24 at 11:00; Stop 01/03/25 at 10:59 Glucagon 1 mg AD PRN IM; Start 12/04/24 at 11:00; Stop 01/03/25 at 10:59 Potassium Chloride 100 ml @ 100 mls/hr AD PRN IV; Start 12/04/24 at 11:00; Stop 01/03/25 at 10:59 Potassium Chloride 10 meq AD PRN PO Last administered on 12/09/24at 06:48; Start 12/04/24 at 11:00; Stop 01/03/25 at 10:59 Potassium Chloride 10 meq AD PRN PO; Start 12/04/24 at 11:00; Stop 12/05/24 at 06:30; Status DC Magnesium Sulfate 50 ml @ 0 mls/hr PROTOCOL PRN IV Last administered on 12/07/24at 12:30; Start 12/04/24 at 11:00; Stop 01/03/25 at 10:59 Diphenhydramine HCl 25 mg Q4H PRN PO; Start 12/04/24 at 11:00; Stop 01/03/25 at 10:59 Acetaminophen 650 mg Q6H PRN PO; Start 12/04/24 at 11:00; Stop 01/03/25 at 10:59 Acetaminophen 650 mg Q4H PRN PO; Start 12/04/24 at 11:00; Stop 12/04/24 at 10:57; Status DC Ondansetron HCl 4 mg Q6H PRN IV; Start 12/04/24 at 11:00; Stop 01/03/25 at 10:59 Zolpidem Tartrate 5 mg HS PRN PO; Start 12/04/24 at 11:00; Stop 01/03/25 at 10:59 Al Hydroxide/Mg Hydroxide 30 ml Q6H PRN PO; Start 12/04/24 at 11:00; Stop 01/03/25 at 10:59 Lactulose 20 gm BID PRN PO; Start 12/04/24 at 11:00; Stop 01/03/25 at 10:59 Nitroglycerin 0.4 mg PROTOCOL PRN SL; Start 12/04/24 at 11:00; Stop 01/03/25 at 10:59 Guaifenesin/ Dextromethorphan 10 ml Q4H PRN PO; Start 12/04/24 at 11:00; Stop 01/03/25 at 10:59 Famotidine 20 mg BID PRN IV; Start 12/04/24 at 11:00; Stop 12/04/24 at 10:57; Status DC Heparin Sodium (Porcine) 5,000 unit BID SQ Last administered on 12/04/24at 22:19; Start 12/04/24 at 21:00; Stop 12/06/24 at 08:45; Status DC Acetaminophen 650 mg Q6H PRN PO Last administered on 12/11/24at 01:26; Start 12/04/24 at 11:00; Stop 01/03/25 at 10:59 Ketorolac Tromethamine 15 mg Q8H PRN IV Last administered on 12/08/24at 20:20; Start 12/04/24 at 11:00; Stop 12/09/24 at 10:59; Status DC Morphine Sulfate 1 mg Q4H PRN IVP Last administered on 12/08/24at 17:34; Start 12/04/24 at 11:00; Stop 12/09/24 at 13:59; Status DC Vancomycin HCl 250 ml @ 125 mls/hr ONCE IV Last administered on 12/04/24at 11:00; Start 12/04/24 at 11:00; Stop 12/04/24 at 12:59; Status DC Piperacillin Sod/ Tazobactam Sod 50 ml @ 12.5 mls/hr Q8H IV Last administered on 12/04/24at 17:09; Start 12/04/24 at 17:30; Stop 12/04/24 at 21:34; Status DC Sodium Chloride 1,000 ml @ 100 mls/hr Q10H IV Last administered on 12/06/24at 02:46; Start 12/04/24 at 11:00; Stop 12/06/24 at 12:47; Status DC Hydralazine HCl 10 mg Q6H PRN IV; Start 12/04/24 at 11:00; Stop 12/04/24 at 13:13; Status DC Famotidine 20 mg Q24H IV Last administered on 12/07/24at 21:32; Start 12/04/24 at 21:00; Stop 12/08/24 at 15:45; Status DC Vancomycin HCl 250 ml @ 125 mls/hr Q24H IV Last administered on 12/05/24at 11:57; Start 12/05/24 at 11:00; Stop 12/05/24 at 13:42; Status DC Norepinephrine 250 ml @ 0 mls/hr PROTOCOL STAT IV Last administered on 12/04/24at 13:12; Start 12/04/24 at 12:14; Stop 12/04/24 at 12:18; Status DC Gadoterate Meglumine 10 mmol STK-MED ONCE IV; Start 12/04/24 at 12:59; Stop 12/04/24 at 12:59; Status DC Cefepime HCl 1 gm Q8H IVPB Last administered on 12/05/24at 00:15; Start 12/04/24 at 16:00; Stop 12/05/24 at 06:31; Status DC Norepinephrine 250 ml @ 0 mls/hr PROTOCOL IV Last administered on 12/05/24at 14:03; Start 12/04/24 at 17:17; Stop 01/03/25 at 17:16 Potassium Chloride 10 meq AD PRN PO Last administered on 12/11/24at 09:31; Start 12/05/24 at 07:00; Stop 01/03/25 at 10:59 Cefepime HCl 1 gm Q12H IVPB; Start 12/05/24 at 12:00; Stop 12/05/24 at 13:42; Status DC Pharmacy Profile Note 1 each ONCE MIS; Start 12/05/24 at 14:00; Stop 12/05/24 at 13:51; Status DC Meropenem 1 gm Q12H IVPB Last administered on 12/11/24at 01:16; Start 12/05/24 at 14:00; Stop 12/15/24 at 13:59 Lactated Ringer's 1,000 ml @ 75 mls/hr [id number] IV Last administered on 12/09/24at 21:00; Start 12/06/24 at 13:00; Stop 01/05/25 at 12:59 Acetaminophen 650 mg ONCE ONCE PO Last administered on 12/06/24at 13:02; Start 12/06/24 at 13:00; Stop 12/06/24 at 13:01; Status DC Metoprolol Tartrate 12.5 mg BID PO Last administered on 12/11/24at 09:30; Start 12/06/24 at 21:00; Stop 01/05/25 at 20:59 Potassium Chloride 40 meq ONCE ONCE PO Last administered on 12/07/24at 08:45; Start 12/07/24 at 08:00; Stop 12/07/24 at 08:01; Status DC Potassium Chloride 100 ml @ 50 mls/hr ONCE ONCE IV Last administered on 12/07/24at 08:45; Start 12/07/24 at 08:00; Stop 12/07/24 at 09:59; Status DC Propofol 200 mg STK-MED ONCE IV; Start 12/08/24 at 14:19; Stop 12/08/24 at 14:19; Status DC Lidocaine HCl 100 mg STK-MED ONCE .ROUTE; Start 12/08/24 at 14:19; Stop 12/08/24 at 14:20; Status DC Pantoprazole Sodium 40 mg DAILY PO Last administered on 12/11/24at 09:30; Start 12/09/24 at 09:00; Stop 01/08/25 at 08:59 Polyethylene Glycol/ Electrolytes 4,000 ml ONCE ONCE PO Last administered on 12/09/24at 19:21; Start 12/09/24 at 19:00; Stop 12/09/24 at 19:02; Status DC Propofol 200 mg STK-MED ONCE IV; Start 12/10/24 at 14:43; Stop 12/10/24 at 14:42; Status DC Lidocaine HCl 100 mg STK-MED ONCE .ROUTE; Start 12/10/24 at 14:45; Stop 12/10/24 at 14:45; Status DC Hydrocortisone Acetate 1 supp DAILY NC; Start 12/11/24 at 21:00; Stop 01/10/25 at 20:59 STEVEN SINCLAIR MD Dec 11, 2024 13:25
--- NOTE | 2024-12-11 21:31 | PN ---
CARDIOLOGY Reason for consult: Atrial flutter HPI/story at presentation: This is a pleasant 74 male with past medical history as below presents with complaints of gram-negative bacteremia sepsis and is currently, s/p pressors and resolution of sepsis, moved to the floor. Had another atrial flutter and therefore, cardiology was consulted for evaluation and management Past medical history: See below Allergies, Meds See chart Review of systems Review of Systems Constitutional: Negative for chills and fever. HENT: Negative for ear discharge and ear pain. Eyes: Negative for photophobia and discharge. Respiratory: Negative for cough, sputum production and stridor. Cardiovascular: Negative for chest pain and palpitations. Gastrointestinal: Negative for diarrhea and vomiting. Genitourinary: Negative for frequency. Musculoskeletal: Negative for myalgias. Skin: Negative for rash. Neurological: Negative for focal weakness and seizures. Endo/Heme/Allergies: Negative for polydipsia. Psychiatric/Behavioral: Negative for hallucinations. Vitals see chart PHYSICAL EXAMINATION GENERAL: The patient is alert and oriented*3 HEENT: Nonicteric sclerae, non traumatic HEART: Regular rate and rhythm with no murmurs LUNGS: Clear to auscultation bilaterally ABDOMEN: No acute issues, non tender GENITAL, RECTAL: deferred SKIN: No rash NEUROLOGIC: NFND EXTREMITIES: No edema ASSESSMENT ATRIAL FLUTTER newly diagnosed, 12/27 Rate controlled, 12/2024 SEPSIS, CYSTITIS At presentation, Resolved Associated gram-negative bacteremia THROMBOCYTOPENIA Anticoagulation on hold in the setting ACUTE KIDNEY INJURY At presentation Resolved DIABETES CORE MEASURES OTHER MEDICAL PROBLEMS Biliary stones, fatty liver, umbilical hernia, history of right colectomy, ileocolonic anastomosis, cholelithiasis Moderate degenerative disc disease PLAN 12/06/2024 no active cardiac complaints at this time, has returned to normal sinus rhythm. May continue anticoagulation if platelets improve. On rate control. Seen and examined 12/06/2024 at around 3:30 PM. 12/07/2024 No active cardiac complaints at this time, blood cultures are positive for E. coli are currently on IV antibiotics, ongoing issues with thrombocytopenia, platelets being provided prior to EGD. On beta-blockers, not on anticoagulation at this time until platelets improve. Will follow perioperatively. Echocardiogram was previously with normal ejection fraction. Seen and examined 12/07/2024 around 8 PM. 12/09/2024 Doing well, patient underwent EGD with evidence of gastritis and varices, plans for colonoscopy noted. Seen and examined 12/09/2024 at around 8 PM 12/10/2024 Colonoscopy with evidence of multiple polyps, appreciate primary team and being followed by GI as well. Currently, no active cardiovascular issues. Currently also on metoprolol for rate control. Not on anticoagulation at this time. MRCP being evaluated as well. Seen and examined 12/10/2024 around 8 PM. 12/11/2024 Doing well, eventually, will need to consider restarting antithrombotics when able and okay with primary team given atrial fibrillation at presentation. This can be initiated when okay with GI. Anemia at presentation being followed by GI and hematology. Seen and examined 12/11/2024 at around 8 PM. ATTESTATION I was involved substantially in the care of this patient Number and complexity of problems addressed: 1 acute illness with systemic features Amount and or complexity of data Review of prior external note(s) from each unique source: 2+ Ordering of each unique test : 0 Review of the result(s) of each unique test: 2+ Assessment requiring an independent historian(s): No Independent interpretation of test performed by another MD/QHCP/appropriate source (not separately reported) : No Discussion of management or test interpretation with external MD/QHCP/appropriate source (not separately reported) : No Risk status (cardiac, billing related): Moderate Vitals/Labs Vital Signs Date Time Temp Pulse Resp B/P (MAP) Pulse Ox O2 Delivery O2 Flow Rate FiO2 12/11/24 20:00 98.1 78 18 143/70 96 Room Air 21 12/11/24 09:30 0 Laboratory Tests 12/11/24 10:51 Medications Current Medications Ondansetron HCl 4 mg ONCE ONCE IVP Last administered on 12/04/24at 07:40; Start 12/04/24 at 07:30; Stop 12/04/24 at 07:31; Status DC Lactated Ringer's 1,000 ml BOLUS STAT IV Last administered on 12/04/24at 07:40; Start 12/04/24 at 07:07; Stop 12/04/24 at 07:14; Status DC Acetaminophen 1,000 mg ONCE ONCE PO Last administered on 12/04/24at 08:29; Start 12/04/24 at 08:30; Stop 12/04/24 at 08:31; Status DC Piperacillin Sod/ Tazobactam Sod 3.375 gm ONCE ONCE IV Last administered on 12/04/24at 09:35; Start 12/04/24 at 09:30; Stop 12/04/24 at 09:31; Status DC Sodium Chloride 1,000 ml @ 125 mls/hr ONCE ONCE IV Last administered on 12/04/24at 09:35; Start 12/04/24 at 09:30; Stop 12/04/24 at 17:29; Status DC Insulin Human Regular INSULIN SLIDING SCAL... ACHS SQ Last administered on 12/07/24at 12:39; Start 12/04/24 at 11:30; Stop 01/03/25 at 11:29 Dextrose 50 ml AD PRN IV; Start 12/04/24 at 11:00; Stop 01/03/25 at 10:59 Glucagon 1 mg AD PRN IM; Start 12/04/24 at 11:00; Stop 01/03/25 at 10:59 Potassium Chloride 100 ml @ 100 mls/hr AD PRN IV; Start 12/04/24 at 11:00; Stop 01/03/25 at 10:59 Potassium Chloride 10 meq AD PRN PO Last administered on 12/09/24at 06:48; Start 12/04/24 at 11:00; Stop 01/03/25 at 10:59 Potassium Chloride 10 meq AD PRN PO; Start 12/04/24 at 11:00; Stop 12/05/24 at 06:30; Status DC Magnesium Sulfate 50 ml @ 0 mls/hr PROTOCOL PRN IV Last administered on 12/07/24at 12:30; Start 12/04/24 at 11:00; Stop 01/03/25 at 10:59 Diphenhydramine HCl 25 mg Q4H PRN PO; Start 12/04/24 at 11:00; Stop 01/03/25 at 10:59 Acetaminophen 650 mg Q6H PRN PO; Start 12/04/24 at 11:00; Stop 01/03/25 at 10:59 Acetaminophen 650 mg Q4H PRN PO; Start 12/04/24 at 11:00; Stop 12/04/24 at 10:57; Status DC Ondansetron HCl 4 mg Q6H PRN IV; Start 12/04/24 at 11:00; Stop 01/03/25 at 10:59 Zolpidem Tartrate 5 mg HS PRN PO; Start 12/04/24 at 11:00; Stop 01/03/25 at 10:59 Al Hydroxide/Mg Hydroxide 30 ml Q6H PRN PO; Start 12/04/24 at 11:00; Stop 01/03/25 at 10:59 Lactulose 20 gm BID PRN PO; Start 12/04/24 at 11:00; Stop 01/03/25 at 10:59 Nitroglycerin 0.4 mg PROTOCOL PRN SL; Start 12/04/24 at 11:00; Stop 01/03/25 at 10:59 Guaifenesin/ Dextromethorphan 10 ml Q4H PRN PO; Start 12/04/24 at 11:00; Stop 01/03/25 at 10:59 Famotidine 20 mg BID PRN IV; Start 12/04/24 at 11:00; Stop 12/04/24 at 10:57; Status DC Heparin Sodium (Porcine) 5,000 unit BID SQ Last administered on 12/04/24at 22:19; Start 12/04/24 at 21:00; Stop 12/06/24 at 08:45; Status DC Acetaminophen 650 mg Q6H PRN PO Last administered on 12/11/24at 01:26; Start 12/04/24 at 11:00; Stop 01/03/25 at 10:59 Ketorolac Tromethamine 15 mg Q8H PRN IV Last administered on 12/08/24at 20:20; Start 12/04/24 at 11:00; Stop 12/09/24 at 10:59; Status DC Morphine Sulfate 1 mg Q4H PRN IVP Last administered on 12/08/24at 17:34; Start 12/04/24 at 11:00; Stop 12/09/24 at 13:59; Status DC Vancomycin HCl 250 ml @ 125 mls/hr ONCE IV Last administered on 12/04/24at 11:00; Start 12/04/24 at 11:00; Stop 12/04/24 at 12:59; Status DC Piperacillin Sod/ Tazobactam Sod 50 ml @ 12.5 mls/hr Q8H IV Last administered on 12/04/24at 17:09; Start 12/04/24 at 17:30; Stop 12/04/24 at 21:34; Status DC Sodium Chloride 1,000 ml @ 100 mls/hr Q10H IV Last administered on 12/06/24at 02:46; Start 12/04/24 at 11:00; Stop 12/06/24 at 12:47; Status DC Hydralazine HCl 10 mg Q6H PRN IV; Start 12/04/24 at 11:00; Stop 12/04/24 at 13:13; Status DC Famotidine 20 mg Q24H IV Last administered on 12/07/24at 21:32; Start 12/04/24 at 21:00; Stop 12/08/24 at 15:45; Status DC Vancomycin HCl 250 ml @ 125 mls/hr Q24H IV Last administered on 12/05/24at 11:57; Start 12/05/24 at 11:00; Stop 12/05/24 at 13:42; Status DC Norepinephrine 250 ml @ 0 mls/hr PROTOCOL STAT IV Last administered on 12/04/24at 13:12; Start 12/04/24 at 12:14; Stop 12/04/24 at 12:18; Status DC Gadoterate Meglumine 10 mmol STK-MED ONCE IV; Start 12/04/24 at 12:59; Stop 12/04/24 at 12:59; Status DC Cefepime HCl 1 gm Q8H IVPB Last administered on 12/05/24at 00:15; Start 12/04/24 at 16:00; Stop 12/05/24 at 06:31; Status DC Norepinephrine 250 ml @ 0 mls/hr PROTOCOL IV Last administered on 12/05/24at 14:03; Start 12/04/24 at 17:17; Stop 01/03/25 at 17:16 Potassium Chloride 10 meq AD PRN PO Last administered on 12/11/24at 09:31; Start 12/05/24 at 07:00; Stop 01/03/25 at 10:59 Cefepime HCl 1 gm Q12H IVPB; Start 12/05/24 at 12:00; Stop 12/05/24 at 13:42; Status DC Pharmacy Profile Note 1 each ONCE MISC; Start 12/05/24 at 14:00; Stop 12/05/24 at 13:51; Status DC Meropenem 1 gm Q12H IVPB Last administered on 12/11/24at 15:30; Start 12/05/24 at 14:00; Stop 12/15/24 at 13:59 Lactated Ringer's 1,000 ml @ 75 mls/hr [id number] IV Last administered on 12/11/24at 15:31; Start 12/06/24 at 13:00; Stop 01/05/25 at 12:59 Acetaminophen 650 mg ONCE ONCE PO Last administered on 12/06/24at 13:02; Start 12/06/24 at 13:00; Stop 12/06/24 at 13:01; Status DC Metoprolol Tartrate 12.5 mg BID PO Last administered on 12/11/24at 20:42; Start 12/06/24 at 21:00; Stop 01/05/25 at 20:59 Potassium Chloride 40 meq ONCE ONCE PO Last administered on 12/07/24at 08:45; Start 12/07/24 at 08:00; Stop 12/07/24 at 08:01; Status DC Potassium Chloride 100 ml @ 50 mls/hr ONCE ONCE IV Last administered on 12/07/24at 08:45; Start 12/07/24 at 08:00; Stop 12/07/24 at 09:59; Status DC Propofol 200 mg STK-MED ONCE IV; Start 12/08/24 at 14:19; Stop 12/08/24 at 14:19; Status DC Lidocaine HCl 100 mg STK-MED ONCE .ROUTE; Start 12/08/24 at 14:19; Stop 12/08/24 at 14:20; Status DC Pantoprazole Sodium 40 mg DAILY PO Last administered on 12/11/24at 09:30; Start 12/09/24 at 09:00; Stop 01/08/25 at 08:59 Polyethylene Glycol/ Electrolytes 4,000 ml ONCE ONCE PO Last administered on 12/09/24at 19:21; Start 12/09/24 at 19:00; Stop 12/09/24 at 19:02; Status DC Propofol 200 mg STK-MED ONCE IV; Start 12/10/24 at 14:43; Stop 12/10/24 at 14:42; Status DC Lidocaine HCl 100 mg STK-MED ONCE .ROUTE; Start 12/10/24 at 14:45; Stop 12/10/24 at 14:45; Status DC Hydrocortisone Acetate 1 supp DAILY [place] Last administered on 12/11/24at 20:42; Start 12/11/24 at 21:00; Stop 01/10/25 at 20:59 KENIA JOHNSON MD Dec 11, 2024 21:31
[2024-12-12] VITALS (8 sets, daily range): BP systolic 120–147; BP diastolic 61–80; PULSE 71–85; RESP 17–20; TEMP 97.8–98.6; O2SAT 97
[2024-12-12 04:54] LABS: NUCLEATED RED BLOOD CELLS 0.0 % (0.0-0.19); PLATELET COUNT (AUTO) 146.0 K/uL (130-400); RED BLOOD CELL COUNT(AUTO) 3.2 MIL/uL (4.50-6.20); RED CELL DISTRIBUTION WIDTH 13.2 % (11.0-15.5); WHITE BLOOD COUNT (AUTO) 7.3 K/uL (4.8-10.8)
[2024-12-12 05:18] LABS: CREATININE 0.6 mg/dL (0.5-1.3); GLOMERULAR FILTR. RATE CALC 102.0 mL/min (>90); GLUCOSE,RANDOM 90.0 mg/dL (70-105); SODIUM SERUM 141.0 mmol/L (136-145); UREA NITROGEN, BLOOD 13.0 mg/dL (7-18)
--- NOTE | 2024-12-12 12:14 | PN ---
[facility] PROGRESS NOTE Date of Service: Dec 12, 2024 Time of Service: 12:11 SUBJECTIVE: Patient evaluated in the room today. He is status post EGD and colonoscopy. No new complaints or concerns reported. Denies chest pain, shortness of breath, nausea, vomiting, or abdominal pain. REVIEW OF SYSTEMS CONSTITUTIONAL: Denies fevers, chills, or night sweats. No unintentional weight loss reported. Complains of generalized body weakness NEUROLOGICAL: Denies headache, amaurosis fugax, motor weakness, sensory deficit, vertigo/spinning sensation, gait abnormalities, or tremors. ENT: No hearing loss, otalgia, otorrhea, rhinitis, rhinorrhea, hoarseness, or sore throat. CARDIOVASCULAR: Denies any exertional angina, dyspnea on exertion, orthopnea, paroxysmal nocturnal dyspnea, palpitations, life-threatening arrhythmias, claudication. PULMONARY: Denies any shortness of breath, cough, phlegm/sputum, hemoptysis, pleuritic chest pain. SLEEP: Denies morning headaches, daytime somnolence or napping. Denies difficulty falling asleep, staying asleep, waking from sleep. Denies knowledge of snoring. GASTROINTESTINAL: Denies any type of dysphagia to either liquids or solids. Denies , pyrosis, early satiety, abdominal pain, diarrhea, constipation, or changes in stool consistency or caliber. Denies coffee-ground emesis, hemateme sis, hematochezia, or melanotic stools. Complains of nausea and vomiting GENITOURINARY: Denies frequency, urgency, nocturia, hematuria or incontinence (Storage/Irritative symptoms.) Low urinary stream, straining to void, urinary intermittency or hesitancy, splitting of the voiding stream, terminal dribbling. ENDOCRINOLOGIC: Denies polyuria, polydipsia, polyphagia or heat/cold intolerances. HEMATOLOGIC: Denies thrombophilia/previous clots, or coagulopathy/bleeding disorders. ONCOLOGIC: Denies personal history of malignancy. DERMATOLOGIC: Denies rashes or pruritus. PSYCHIATRIC: Denies any suicidal or homicidal ideation. Denies hallucinations. PHYSICAL EXAM GENERAL APPEARANCE: The patient is awake, alert, and oriented, in no acute cardiopulmonary distress. NEUROLOGICAL: Cranial nerves II-XII grossly intact. Motor is 5/5 in bilateral upper and lower extremities proximal to distal. No sensory deficits. HEENT: Face is symmetric. Pupils are equal and reactive. Extraocular movements are intact. NECK: Supple. No JVD. No thyromegaly. No submental, submandibular, pre- /postauricular, occipital or supraclavicular lymphadenopathy. CHEST: Normal chest expansion. No Telemetry. LUNGS: Absence of any rales, rhonchi or any wheezing. CARDIOVASCULAR: Regular. S1 and S2 normal. No appreciable rubs, murmurs or gallops. ABDOMEN: Soft, nontender, and nondistended. There is no rebound, voluntary gu arding, or rigidity. : Deferred. No Mariano. EXTREMITIES: Non-edematous and not cyanotic. No clubbing. Good capillary refill. SKIN: No skin breakdown. Vital Signs (last 8hr) Date Time Temp Pulse Resp B/P (MAP) Pulse Ox O2 Delivery O2 Flow Rate FiO2 12/12/24 08:00 98.2 85 19 147/80 97 Room Air LABS: Laboratory: Test 12/12/24 11:44 12/12/24 04:49 Range/Units Whole Blood Glucose 88 70-110 MG/DL White Blood Count 7.3 4.8-10.8 K/uL Red Blood Count 3.20 L 4.50-6.20 MIL/uL Hemoglobin 10.4 L 14.0-18.0 g/dL Hematocrit 29.2 L 42-54 % Mean Corpuscular Volume 91.3 79-99 fL Mean Corpuscular Hemoglobin 32.5 27.0-33.0 pg Mean Corpuscular Hemoglobin Concent 35.6 32.0-36.0 g/dL Red Cell Distribution Width 13.2 11.0-15.5 % Platelet Count 146 130-400 K/uL Mean Platelet Volume 9.6 7.5-10.5 fL Nucleated Red Blood Cells 0.0 0.0-0.19 % Sodium Level 141 136-145 mmol/L Potassium Level 3.5 3.5-5.1 mmol/L Chloride Level 109 101-111 mmol/L Carbon Dioxide Level 25 21-32 mmol/L Blood Urea Nitrogen 13 7-18 mg/dL Creatinine 0.6 0.5-1.3 mg/dL Glomerular Filtration Rate Calc 102 >90 mL/min Random Glucose 90 70-105 mg/dL Total Calcium 7.4 L 8.5-10.1 mg/dL Current Medications Medications (Trade) Dose Ordered Sig/Panchito Route PRN Reason Start Time Stop Time Status Last Admin Dose Admin Acetaminophen (TYLenol 325MG TAB) 650 mg Q4H PRN PO MILD PAIN (1-3) 12/04/24 11:00 12/04/24 10:57 DC Acetaminophen (TYLenol 325MG TAB) 650 mg Q6H PRN PO MILD PAIN (1-3) 12/04/24 11:00 01/03/25 10:59 12/12/24 09:08 650 MG Acetaminophen (TYLenol 325MG TAB) 650 mg Q6H PRN PO TEMPERATURE GREATER THAN 101.5 12/04/24 11:00 01/03/25 10:59 Al Hydroxide/Mg Hydroxide (MAALox PLUS 30ML) 30 ml Q6H PRN PO INDIGESTION 12/04/24 11:00 01/03/25 10:59 Cefepime HCl (MAXipime 1 GM vial) 1 gm Q12H IVPB 12/05/24 12:00 12/05/24 13:42 DC Cefepime HCl (MAXipime 1 GM vial) 1 gm Q8H IVPB 12/04/24 16:00 12/05/24 06:31 DC 12/05/24 00:15 1 GM Dextrose (D50w) 50 ml AD PRN IV HYPOGLYCEMIA PROTOCOL 12/04/24 11:00 01/03/25 10:59 Diphenhydramine HCl (BENAdryl CAP) 25 mg Q4H PRN PO MILD ITCHING/RASH 12/04/24 11:00 01/03/25 10:59 Famotidine (Pepcid 20mg Vial) 20 mg BID PRN IV NAUSEA/VOMITING 12/04/24 11:00 12/04/24 10:57 DC Famotidine (Pepcid 20mg Vial) 20 mg Q24H IV 12/04/24 21:00 12/08/24 15:45 DC 12/07/24 21:32 20 MG Glucagon (Glucagon 1mg Kit) 1 mg AD PRN IM HYPOGLYCEMIA PROTOCOL 12/04/24 11:00 01/03/25 10:59 Guaifenesin/ Dextromethorphan (RobiTUSSin DM 200/20MG 10ML) 10 ml Q4H PRN PO COUGH 12/04/24 11:00 01/03/25 10:59 Heparin Sodium (Porcine) (HEParin 5,000 UNIT VIAL) 5,000 unit BID SQ 12/04/24 21:00 12/06/24 08:45 DC 12/04/24 22:19 5,000 UNIT Hydralazine HCl (APRESOLine 20MG INJ) 10 mg Q6H PRN IV For:SBP above 160;DBP above 90 12/04/24 11:00 12/04/24 13:13 DC Hydrocortisone Acetate (anuSOL-HC 25MG SUPP) 1 supp DAILY [place] 12/11/24 21:00 01/10/25 20:59 12/12/24 09:10 1 SUPP Insulin Human Regular (humuLIN R 100 UNIT/ML 3ML) INSULIN SLIDING SCAL... ACHS SQ 12/04/24 11:30 01/03/25 11:29 12/07/24 12:39 4 UNIT Ketorolac Tromethamine (toRADol) 15 mg Q8H PRN IV MODERATE PAIN (4-6) 12/04/24 11:00 12/09/24 10:59 DC 12/08/24 20:20 15 MG Lactated Ringer's 1,000 ml @ 75 mls/hr [id number] IV 12/06/24 13:00 01/05/25 12:59 12/11/24 15:31 75 MLS/HR Lactated Ringer's (Lactated Ringers 1000ml) 1,000 ml BOLUS STAT IV 12/04/24 07:07 12/04/24 07:14 DC 12/04/24 07:40 1,000 ML Lactulose (Constulose 20gm/ 30ml Udcup) 20 gm BID PRN PO CONSTIPATION 12/04/24 11:00 01/03/25 10:59 Magnesium Sulfate 50 ml @ 0 mls/hr PROTOCOL PRN IV OTHER [SEE ORDER COMMENTS] 12/04/24 11:00 01/03/25 10:59 12/07/24 12:30 20 MLS/HR Meropenem (Merrem 1gm) 1 gm Q12H IVPB 12/05/24 14:00 12/15/24 13:59 12/12/24 01:45 1 GM Metoprolol Tartrate (loprESSOR) 12.5 mg BID PO 12/06/24 21:00 01/05/25 20:59 12/12/24 09:01 12.5 MG Morphine Sulfate (morPHINE 4MG SYG) 1 mg Q4H PRN IVP SEVERE PAIN (7-10) 12/04/24 11:00 12/09/24 13:59 DC 12/08/24 17:34 1 MG Nitroglycerin (Nitrostat) 0.4 mg PROTOCOL PRN SL CHEST PAIN 12/04/24 11:00 01/03/25 10:59 Norepinephrine 250 ml @ 0 mls/hr PROTOCOL IV 12/04/24 17:17 01/03/25 17:16 12/05/24 14:03 3.09 MLS/HR Norepinephrine 250 ml @ 0 mls/hr PROTOCOL STAT IV 12/04/24 12:14 12/04/24 12:18 DC 12/04/24 13:12 0.1 MLS/HR Ondansetron HCl (zoFRAN 4MG INJ) 4 mg Q6H PRN IV NAUSEA/VOMITING 12/04/24 11:00 01/03/25 10:59 Pantoprazole Sodium (PROTonix 40MG TAB) 40 mg DAILY PO 12/09/24 09:00 01/08/25 08:59 12/12/24 09:00 40 MG Pharmacy Profile Note (Pharmacy Communication) 1 each ONCE MISC 12/05/24 14:00 12/05/24 13:51 DC Piperacillin Sod/ Tazobactam Sod 50 ml @ 12.5 mls/hr Q8H IV 12/04/24 17:30 12/04/24 21:34 DC 12/04/24 17:09 12.5 MLS/HR Potassium Chloride 100 ml @ 100 mls/hr AD PRN IV POTASSIUM PROTOCOL 12/04/24 11:00 01/03/25 10:59 Potassium Chloride (K-Dur 10meq Sr Tab) 10 meq AD PRN PO POTASSIUM PROTOCOL 12/05/24 07:00 01/03/25 10:59 12/12/24 09:01 10 MEQ Potassium Chloride (K-Dur/Klor-Con 20meq) 10 meq AD PRN PO POTASSIUM PROTOCOL 12/04/24 11:00 12/05/24 06:30 DC Potassium Chloride (KCl 10% Elixir 20meq/15ml) 10 meq AD PRN PO POTASSIUM PROTOCOL 12/04/24 11:00 01/03/25 10:59 12/09/24 06:48 10 MEQ Sodium Chloride 1,000 ml @ 100 mls/hr Q10H IV 12/04/24 11:00 12/06/24 12:47 DC 12/06/24 02:46 100 MLS/HR Vancomycin HCl 250 ml @ 125 mls/hr ONCE IV 12/04/24 11:00 12/04/24 12:59 DC 12/04/24 11:00 125 MLS/HR Vancomycin HCl 250 ml @ 125 mls/hr Q24H IV 12/05/24 11:00 12/05/24 13:42 DC 12/05/24 11:57 125 MLS/HR Zolpidem Tartrate (AmbIEN) 5 mg HS PRN PO INSOMNIA 12/04/24 11:00 01/03/25 10:59 DIAGNOSTICS / RADIOLOGY: [ ] ASSESSMENT: Septic shock, POA bacteremia due to E coli, POA UTI due to E coli, POA Generalized body weakness POA Intractable nausea and vomiting POA Acute kidney injury POA Acute dehydration POA Right flank pain POA Left intrahepatic biliary duct measuring [address] ultrasound abdomen POA Cholelithiasis per ultrasound abdomen POA Fatty liver per CT abdomen/pelvis POA Umbilical hernia per CT abdomen/pelvis POA Moderate degenerative disc disease of the spine per CT abdomen/pelvis POA Uncontrolled diabetes mellitus type 2 with hypoglycemia POA Hypotension POA Acute complicated cystitis POA Acute multifactorial anemia POA Hyperlipidemia POA Obesity POA History of polyp removal 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 Await colonoscopy results. Continue to monitor labs, including platelets. Maintain NPO status as indicated. Not a candidate for discharge at this time due to ongoing need for IV antibiotics. Continue supportive care and monitoring. Consult PT Start Voltaren cream for back pain Continue Tylenol p.r.n. for pain Start ibuprofen 400 mg q.6 hours for moderate pain ADALBERTO WHARTON IV, MD Dec 12, 2024 12:14
--- NOTE | 2024-12-12 12:20 | NUR ---
Discharge Planning: S/P colonoscopy. Pt. started on consistent carb diet. Tolerating so far. DCP is for home on PO ABX.
--- NOTE | 2024-12-12 13:42 | NUR ---
CONTACTED CM TO SET UP TREATMENT WITH [facility] PER HIRAM. NO ANSWER X 4.
--- NOTE | 2024-12-12 13:43 | HMCIMG ---
US VENOUS DOPPLER UNILATERAL REASON: SWELLING TO RIGHT LOWER EXTREMITY COMPARISON: None Technique: Right venous doppler ultrasound was performed with spectral analysis and color flow imaging technique. FINDINGS: There is a normal appearance of the common femoral, deep femoral, the profunda femoris and popliteal veins. Proximal calf veins appear normal as well. There is normal response to compression and augmentation. There is no evidence of deep venous thrombosis. IMPRESSION: Normal right lower extremity venous Doppler ultrasound.
--- NOTE | 2024-12-12 13:50 | NUR ---
PAGED DR MCCLELLAND TO GET RECOMMENDATIONS FOR RESTARTING ANTICOAGULATION MEDS PER DR LEBLANC REQUEST. PER DR MCCLELLAND OFFICE STAFF, DR MCCLELLAND NOTIFIED AND KRYSTIN CONTACTED DR LEBLANC DIRECTLY TO GIVE RECOMMENDATIONS.
--- NOTE | 2024-12-12 14:44 | PN ---
PROGRESS NOTE Date of Service: Dec 12, 2024 Time of Service: 14:38 SUBJECTIVE: A 74-year-old male with diabetes mellitus, hypertension, and obesity, presented to the hospital with nausea and vomiting and mild body weakness. The patient also complained of fever. T-max in the emergency room was 100.8. Imaging has been done which showed the patient's gallbladder is dilated. 12/10 - Patient seen at bedside. Afebrile with no new complaints or concerns. No overnight acute events reported. EGD results from yesterday (12/09) show gas tritis and small esophageal varices. Patient is currently NPO for pending colonoscopy. Patient pending physical therapy. 12/12 - Patient seen at bedside. Afebrile with no new complaints or concerns, No overnight events reported. Patient receiving IV antibiotics. Recommend patient follow up outpatient in 3-4 weeks. Recommend patient discharged on iron 325 mg tablet once every other day. REVIEW OF SYSTEMS CONSTITUTIONAL: Denies fever, chills, or fatigue. HEAD/FACE: No signs of trauma. EENT: Denies eye pain, blurred vision, double vision, or light sensitivity. RESPIRATORY: Denies shortness of breath, cough, wheezing CARDIOVASCULAR: Denies chest pain, palpitation, syncope GASTROINTESTINAL/ABDOMINAL: Denies abdominal pain, constipation, diarrhea, nausea or vomiting GENITOURINARY: Denies dysuria or hematuria. MUSCULOSKELETAL: Denies joint pain, tenderness, or trauma. INTEGUMENTARY: Denies rash or itchiness NEUROLOGICAL/PSYCH: Denies anxiety, depression, heat or cold intolerance. PHYSICAL EXAM EYES: Anicteric. Pupils equal and reactive. HENT: No oral thrush seen, moist Oral mucosa NECK: Supple, no JVD or thyromegaly. LUNGS: No rales, no rhonchi. CARDIOVASCULAR: No murmur heard. ABDOMEN: Soft, non tender, bowel sounds present, no organomegaly CENTRAL NERVOUS SYSTEM: Awake, alert, oriented x 3. No focal deficits. SKIN: No rashes, no swelling. LYMPHATICS: No peripheral lymphadenopathy MUSCULOSKELETAL: No joint swelling, erythema, Mild tenderness. EXTREMITIES: No cyanosis or clubbing BACK: No deformity, no pressure ulcer. Vital Signs (last 8hr) Date Time Temp Pulse Resp B/P (MAP) Pulse Ox O2 Delivery O2 Flow Rate FiO2 12/12/24 12:00 98.1 73 18 120/61 91 Room Air 12/12/24 08:00 98.2 85 19 147/80 97 Room Air LABS: Laboratory: Test 12/12/24 11:44 12/12/24 04:49 Range/Units Whole Blood Glucose 88 70-110 MG/DL White Blood Count 7.3 4.8-10.8 K/uL Red Blood Count 3.20 L 4.50-6.20 MIL/uL Hemoglobin 10.4 L 14.0-18.0 g/dL Hematocrit 29.2 L 42-54 % Mean Corpuscular Volume 91.3 79-99 fL Mean Corpuscular Hemoglobin 32.5 27.0-33.0 pg Mean Corpuscular Hemoglobin Concent 35.6 32.0-36.0 g/dL Red Cell Distribution Width 13.2 11.0-15.5 % Platelet Count 146 130-400 K/uL Mean Platelet Volume 9.6 7.5-10.5 fL Nucleated Red Blood Cells 0.0 0.0-0.19 % Sodium Level 141 136-145 mmol/L Potassium Level 3.5 3.5-5.1 mmol/L Chloride Level 109 101-111 mmol/L Carbon Dioxide Level 25 21-32 mmol/L Blood Urea Nitrogen 13 7-18 mg/dL Creatinine 0.6 0.5-1.3 mg/dL Glomerular Filtration Rate Calc 102 >90 mL/min Random Glucose 90 70-105 mg/dL Total Calcium 7.4 L 8.5-10.1 mg/dL DIAGNOSTICS / RADIOLOGY: [ ] ASSESSMENT: 1. Anemia. Hemoglobin level 10.5 g/dL 2. Gram negative sepsis. 3. Urinary tract infection. 4. Possible cholecystitis. 5. Acute renal failure. 6. Hypertension. 7. Diabetes mellitus. 8. Thrombocytopenia 1. Peripheral blood smear showed red blood cells to be normocytic normochromic. There was no fragment cell or schistocyte. There is no teardrop cell. There is no rouleaux phenomena. There is no pelger-Huet cell. White blood cell with no blasts. There is decreased platelet number. There is large platelet consistent with peripheral consumption of the platelet. 2. continue on folic acid 1 mg p.o. daily and vitamin B12 1000 mcg p.o. daily. 3. Thrombocytopenia most likely due to cirrhosis of the liver and splenomegaly. Platelet count is 70K. There is no need for platelet transfusion. 4. Patient have EGD done. There is plan for colonoscopy to be done today. There is no need for transfusion of platelet Vitals/Labs PLAN: 1. Peripheral blood smear showed red blood cells to be normocytic normochromic. There was no fragment cell or schistocyte. There is no teardrop cell. There is no rouleaux phenomena. There is no pelger-Huet cell. White blood cell with no blasts. There is decreased platelet number. There is large platelet con sistent with peripheral consumption of the platelet. 2. Continue on folic acid 1 mg p.o. daily and vitamin B12 1000 mcg p.o. daily. 3. Thrombocytopenia most likely due to cirrhosis of the liver and splenomegaly. Platelet count is 70K. There is no need for platelet transfusion. 4. Recommend patient follow up in 3-4 weeks outpatient. 5. Discharge recommendation of iron tablets 325 mg every other day. We will sign off. ATTESTATION BY PHYSICIAN I have seen and examined the patient. I reviewed the documentation, medical decision making, and treatment plan as noted by the resident physician above. I agree with the findings and plan of care. ISAIAH Elizalde MD Dec 12, 2024 14:44
--- NOTE | 2024-12-12 16:09 | PN ---
INFECTIOUS DISEASE PROGRESS NOTE Date of Service: Dec 12, 2024 SUBJECTIVE: This 74 year old male patient is being seen today at bedside. NO fever or chills. NO nausea or vomiting. Patient denies chest pain or shortness of breath. Orders for midline to be placed and case management to arrange outpatient antibiotics at [facility]. Went over plan of care with patient and family at bedside. stated understanding. PHYSICAL EXAM EYES: Anicteric. Pupils equal and reactive. HENT: No oral thrush seen, moist Oral mucosa NECK: Supple, no JVD or thyromegaly. LUNGS: Good air entry. No rales, no rhonchi. CARDIOVASCULAR: S1, S2 regular. No murmur heard. ABDOMEN: Soft and normal bowel sounds. CENTRAL NERVOUS SYSTEM: Awake, alert, oriented x 3. SKIN: No rashes, no swelling. LYMPHATICS: No peripheral lymphadenopathy. MUSCULOSKELETAL: No joint swelling, erythema or tenderness. EXTREMITIES: No cyanosis or clubbing. Generalized weakness. BACK: No deformity, no pressure ulcer. GENITOURINARY: No dysuria or hematuria. Vital Sign (Last 12 Hours) 12/12/24 12/12/24 12/12/24 08:00 08:00 12:00 Temp 98.2 98.1 Pulse 85 73 Resp 19 18 B/P (MAP) 147/80 120/61 Pulse Ox 97 97 91 O2 Delivery Room Air* Room Air Room Air O2 Flow Rate 0 FiO2 21 Intake & Output (last 24hrs) 12/11/24 12/11/24 12/12/24 15:00 23:00 07:00 Intake Total 300 ml 240 ml 700.0 ml Output Total 600 ml Balance -300 ml 240 ml 700.0 ml LABS: Laboratory: Test 12/12/24 11:44 12/12/24 04:49 Range/Units Whole Blood Glucose 88 70-110 MG/DL White Blood Count 7.3 4.8-10.8 K/uL Red Blood Count 3.20 L 4.50-6.20 MIL/uL Hemoglobin 10.4 L 14.0-18.0 g/dL Hematocrit 29.2 L 42-54 % Mean Corpuscular Volume 91.3 79-99 fL Mean Corpuscular Hemoglobin 32.5 27.0-33.0 pg Mean Corpuscular Hemoglobin Concent 35.6 32.0-36.0 g/dL Red Cell Distribution Width 13.2 11.0-15.5 % Platelet Count 146 130-400 K/uL Mean Platelet Volume 9.6 7.5-10.5 fL Nucleated Red Blood Cells 0.0 0.0-0.19 % Sodium Level 141 136-145 mmol/L Potassium Level 3.5 3.5-5.1 mmol/L Chloride Level 109 101-111 mmol/L Carbon Dioxide Level 25 21-32 mmol/L Blood Urea Nitrogen 13 7-18 mg/dL Creatinine 0.6 0.5-1.3 mg/dL Glomerular Filtration Rate Calc 102 >90 mL/min Random Glucose 90 70-105 mg/dL Total Calcium 7.4 L 8.5-10.1 mg/dL ASSESSMENT: E Coli bacteremia. Urinary tract infection with E coli. Sepsis. Streptococcus pharyngitis. Abdominal pain, s/p colonoscopy with findings of polyps, diverticulosis and internal hemorrhoids. Thrombocytopenia, resolving. Dehydration. Diabetes mellitus. PLAN: d/c Meropenem. Continue GI prophylaxis. Continue antidiabetics. Continue pain management. Start Anusol suppositories as recommended by GI. start ceftriaxone place midline case management to refer to [facility] This case was reviewed and discussed with my supervising physician Dr. Espinosa and the above assessment and plan was formulated and agreed upon. SOWMYA SALDANA Dec 12, 2024 16:09
[2024-12-12 16:18] LABS: INR 1.21 (0.85-1.15)
--- NOTE | 2024-12-12 18:55 | DS ---
Discharge Summary Hospital Course Summary: Disregard this note entered in error Assessment/Plan: ASSESSMENT: Septic shock, POA bacteremia due to E coli, POA UTI due to E coli, POA Generalized body weakness POA Intractable nausea and vomiting POA Acute kidney injury POA Acute dehydration POA Right flank pain POA Left intrahepatic biliary duct measuring [address] ultrasound abdomen POA Cholelithiasis per ultrasound abdomen POA Fatty liver per CT abdomen/pelvis POA Umbilical hernia per CT abdomen/pelvis POA Moderate degenerative disc disease of the spine per CT abdomen/pelvis POA Uncontrolled diabetes mellitus type 2 with hypoglycemia POA Hypotension POA Acute complicated cystitis POA Acute multifactorial anemia POA Hyperlipidemia POA Obesity POA History of polyp removal 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 Await colonoscopy results. Continue to monitor labs, including platelets. Maintain NPO status as indicated. Not a candidate for discharge at this time due to ongoing need for IV antib iotics. Continue supportive care and monitoring. Consult PT Start Voltaren cream for back pain Continue Tylenol p.r.n. for pain Start ibuprofen 400 mg q.6 hours for moderate pain Time spent arranging discharge: 31-60 minutes ADALBERTO WHARTON IV, MD Dec 12, 2024 18:55
[2024-12-12] MEDS ORDERED: HYDR25SU11 PR (19:00)
[2024-12-12] MEDS ORDERED: METO25 PO (19:00)
[2024-12-13 04:00] VITALS: BP 135/63; PULSE 70; RESP 17; TEMP 98
[2024-12-13 07:58] VITALS: BP 139/64; PULSE 77; RESP 18; TEMP 98.8
[2024-12-13 08:00] VITALS: O2SAT 95
--- NOTE | 2024-12-13 11:30 | NUR ---
PER DR LEBLANC, SPOKE TO DR MCCLELLAND AND RECOMMENDED TO WAIT A FEW DAYS PRIOR TO RESTARTING ANTICOAGULATION MEDS. DR LEBLANC GAVE VERBAL ORDER OF ELIQUIS 5 MG BID TO START ON SUNDAY. DR WHARTON TO INPUT D/C ORDERS
--- NOTE | 2024-12-13 11:38 | DS ---
Discharge Summary Hospital Course Summary: Patient is 74 years old male with a past medical history of diabetes, hyperlipidemia, obesity, polyp removed, resection of the colon, who came to emergency department with a complaint of generalized body weakness with the nausea and vomiting that started about five days ago. Family members/sister at the bedside stated that about five days ago patient become very weak up to the point when today he could barely get up from the bed. Patient complains of having a fever but he never checked a temperature so was not able to tell how high it was. Patient stated that his head and body felt very hot. Last bowel movement was yesterday. Ultrasound abdomen showed cholelithiasis. Prominent left intrahepatic biliary duct measuring 3 mm. MRCP recommended for further evaluation. CT abdomen/pelvis was performed as well and showed no acute intra-abdominal or pelvic pathology. Fatty liver. Cholelithiasis, s/p extended right colectomy with ileocolic anastomosis. Fat containing umbilical hernia. Moderate degenerative disc disease of the spine. Most recent vital signs temperature 98.4 pulse 95 respiration 24 blood pressure 88/45 patient is on room air satting 99%. WBC 7.9 hemoglobin 14.2 hematocrit 38.7 platelets 145. Sodium 139 potassium 3.2 CO2 18 BUN 23 creatinine 1.7 GFR 42 lactic 5.3 total bilirubin 3.7 AST 129 ALT 82 troponin 99 and then 148. BNP 78 lipase 94 procalcitonin 11.63. Patient will be admitted under hospitalist care for further evaluation/recommendation. A.m. labs. 12/05 the patient has been seen and examined at bedside, case discussed with the RN, patient admitted to the ICU, remains on Levophed for blood pressure support, BP 105/44, afebrile, saturating normal on room air. During my visit the patient is alert and oriented x3, he denies chest pain, no shortness a breath, no nausea, no vomiting, no abdominal pain, no diarrhea. WBC slowly trending down, today 12.3, hemoglobin 12.4, hematocrit 34.8, with a platelet count of 76. Stool occult blood positive. Group A strep a rapid test is positive. Total bilirubin of 7.2. MRCP showing cholelithiasis without acute cholecystitis, no biliary obstruction, incidental pancreatic divisum, he per cirrhosis, hepatic steatosis, mild splenomegaly, left renal cortical cyst. HIDA scan no acute cholecystitis. Echocardiogram showing LVEF 55%, left ventricle diastolic function is normal, the right ventricular systolic function is normal, the atria are normal in size, no hemodynamically significant valvular abnormalities, how pericardial effusion. Blood culture positive for Gram-negative rods 2/2 blood sets. Urine culture [id number] CFU, identification and susceptibilities in process. Patient evaluated by GI, recommended EGD for further evaluation. Recommended also colonoscopy. 12/06 patient is seen and examined at bedside, case discussed with the RN, no acute events overnight, the patient off Levophed, hemodynamically stable, afebrile, saturating normal on room air. Results of urine culture positive for E coli. Blood culture positive for Gram-negative rods, pending final identification. Patient to continue broad-spectrum IV antibiotics. HIDA scan no acute cholecystitis. Echocardiogram showing LVEF 55%, left ventricle diastolic function is normal, the right ventricular systolic function is normal, the atria are normal in size, no hemodynamically significant valvular abnormalities, how pericardial effusion. Blood culture positive for Gram- negative rods 2/2 blood sets. Urine culture [id number] CFU, identification and susceptibilities in process. Patient evaluated by GI, recommended EGD for further evaluation. Recommended also colonoscopy. Patient to be downgraded to PCU. 12/07 patient is seen and examined at bedside, downgraded to the medical floor, alert oriented x3 at the time of my visit, he is getting broad-spectrum IV antibiotics, denies chest pain, shortness shortness for breath, no nausea, no vomit. Results of blood culture positive for E coli, urine culture positive for E coli. Continue the patient on broad-spectrum IV antibiotics. Patient with thrombocytopenia, Hematology consultation requested, recommended to transfuse 1 unit of platelets prior to EGD tomorrow by GI. Patient also with a atrial flutter, cardiology consulted, continue the patient on metoprolol tartrate 12.5 mg p.o. b.i.d. May continue anticoagulation if platelets improve. 12/08 patient is undergoing EGD. No new complaints or concerns. No acute events reported overnight. Patient is receiving 1 unit PRBCs due to thrombocytopenia. 12/09 patient underwent EGD yesterday gastritis and small esophageal varice. Complications reported. No new complaints or concerns. This morning the patient began to shaver in his temperature began to rise and was given Tylenol. He was also pancultured. 12/10 units NPO pending colonoscopy. No new complaints or concerns. No acute events reported overnight. EGD and colonoscopy have been performed. GI cleared the patient to restart anticoagulation three days after discharge. Per Cardiology patient is to start anticoagulation and follow up in clinic on Sunday. IV antibiotics as outpatient has been established. The decision was made to discharge the patient to follow up with PCP, GI, Cardiology, Infectious Disease. Medications as per med rec. Assessment/Plan: ASSESSMENT: Septic shock, POA bacteremia due to E coli, POA UTI due to E coli, POA Generalized body weakness POA Intractable nausea and vomiting POA Acute kidney injury POA Acute dehydration POA Right flank pain POA Left intrahepatic biliary duct measuring [address] ultrasound abdomen POA Cholelithiasis per ultrasound abdomen POA Fatty liver per CT abdomen/pelvis POA Umbilical hernia per CT abdomen/pelvis POA Moderate degenerative disc disease of the spine per CT abdomen/pelvis POA Uncontrolled diabetes mellitus type 2 with hypoglycemia POA Hypotension POA Acute complicated cystitis POA Acute multifactorial anemia POA Hyperlipidemia POA Obesity POA History of polyp removal 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 Await colonoscopy results. Continue to monitor labs, including platelets. Maintain NPO status as indicated. Not a candidate for discharge at this time due to ongoing need for IV antibiotics. Continue supportive care and monitoring. Consult PT Start Voltaren cream for back pain Continue Tylenol p.r.n. for pain Start ibuprofen 400 mg q.6 hours for moderate pain Home Medications: Active Scripts Apixaban (Eliquis) 5 Mg Tablet, 1 TAB PO BID for 30 Days, #60 TAB 0 Refills Prov:ADALBERTO WHARTON IV, MD 12/13/24 Metoprolol Tartrate (Lopressor) 25 Mg Tab, 12.5 MG PO BID, #30 TAB Prov:ADALBERTO WHARTON IV, MD 12/12/24 Hydrocortisone Acetate (Anucort-Hc) 25 Mg Supp.rect, 1 SUPP IN DAILY for 14 Da ys, #14 EA Prov:ADALBERTO WHARTON IV, MD 12/12/24 Time spent arranging discharge: 31-60 minutes ADALBERTO WHARTON IV, MD Dec 13, 2024 11:38
[2024-12-13] MEDS ORDERED: APIX5TAB PO (11:44)
[2024-12-13 11:51] VITALS: BP 135/66; PULSE 68; RESP 18; TEMP 98.1
--- NOTE | 2024-12-13 13:42 | PN ---
CARDIOLOGY Reason for consult: Atrial flutter HPI/story at presentation: This is a pleasant 74 male with past medical history as below presents with complaints of gram-negative bacteremia sepsis and is currently, s/p pressors and resolution of sepsis, moved to the floor. Had another atrial flutter and therefore, cardiology was consulted for evaluation and management Past medical history: See below Allergies, Meds See chart Review of systems Review of Systems Constitutional: Negative for chills and fever. HENT: Negative for ear discharge and ear pain. Eyes: Negative for photophobia and discharge. Respiratory: Negative for cough, sputum production and stridor. Cardiovascular: Negative for chest pain and palpitations. Gastrointestinal: Negative for diarrhea and vomiting. Genitourinary: Negative for frequency. Musculoskeletal: Negative for myalgias. Skin: Negative for rash. Neurological: Negative for focal weakness and seizures. Endo/Heme/Allergies: Negative for polydipsia. Psychiatric/Behavioral: Negative for hallucinations. Vitals see chart PHYSICAL EXAMINATION GENERAL: The patient is alert and oriented*3 HEENT: Nonicteric sclerae, non traumatic HEART: Regular rate and rhythm with no murmurs LUNGS: Clear to auscultation bilaterally ABDOMEN: No acute issues, non tender GENITAL, RECTAL: deferred SKIN: No rash NEUROLOGIC: NFND EXTREMITIES: No edema ASSESSMENT ATRIAL FLUTTER newly diagnosed, 12/27 Rate controlled, 12/2024 SEPSIS, CYSTITIS At presentation, Resolved Associated gram-negative bacteremia THROMBOCYTOPENIA Anticoagulation on hold in the setting ACUTE KIDNEY INJURY At presentation Resolved DIABETES CORE MEASURES OTHER MEDICAL PROBLEMS Biliary stones, fatty liver, umbilical hernia, history of right colectomy, ileocolonic anastomosis, cholelithiasis Moderate degenerative disc disease PLAN 12/06/2024 no active cardiac complaints at this time, has returned to normal sinus rhythm. May continue anticoagulation if platelets improve. On rate control. Seen and examined 12/06/2024 at around 3:30 PM. 12/07/2024 No active cardiac complaints at this time, blood cultures are positive for E. coli are currently on IV antibiotics, ongoing issues with thrombocytopenia, platelets being provided prior to EGD. On beta-blockers, not on anticoagulation at this time until platelets improve. Will follow perioperatively. Echocardiogram was previously with normal ejection fraction. Seen and examined 12/07/2024 around 8 PM. 12/09/2024 Doing well, patient underwent EGD with evidence of gastritis and nilam ices, plans for colonoscopy noted. Seen and examined 12/09/2024 at around 8 PM 12/10/2024 Colonoscopy with evidence of multiple polyps, appreciate primary team and being followed by GI as well. Currently, no active cardiovascular issues. Currently also on metoprolol for rate control. Not on anticoagulation at this time. MRCP being evaluated as well. Seen and examined 12/10/2024 around 8 PM. 12/11/2024 Doing well, eventually, will need to consider restarting antithrombotics when able and okay with primary team given atrial fibrillation at presentation. This can be initiated when okay with GI. Anemia at presentation being followed by GI and hematology. Seen and examined 12/11/2024 at around 8 PM. 12/13/2024 plan to discharge after antibiotics. No active cardiac complaints at this time. Currently, in normal sinus rhythm. Will need anticoagulation, with Eliquis. Concern for bleeding given ongoing GI issues. Spoke with GI doc, plan for number to initiate Eliquis, Sunday night. Patient was asked to watch for bleeding including dark stools bloody stools etc. Will follow-up in the office. May consider watchman as an outpatient. Seen and examined 12/13/24 at around 1:30 PM. ATTESTATION I was involved substantially in the care of this patient Number and complexity of problems addressed: 1 acute illness with systemic features Amount and or complexity of data Review of prior external note(s) from each unique source: 2+ Ordering of each unique test : 0 Review of the result(s) of each unique test: 2+ Assessment requiring an independent historian(s): No Independent interpretation of test performed by another MD/QHCP/appropriate sour ce (not separately reported) : No Discussion of management or test interpretation with external MD/QHCP/appropriate source (not separately reported) : No Risk status (cardiac, billing related): Moderate Vitals/Labs Vital Signs Date Time Temp Pulse Resp B/P (MAP) Pulse Ox O2 Delivery O2 Flow Rate FiO2 12/13/24 11:51 98.1 68 18 135/66 94 Room Air 12/13/24 08:00 0 21 Medications Current Medications Ondansetron HCl 4 mg ONCE ONCE IVP Last administered on 12/04/24at 07:40; Start 12/04/24 at 07:30; Stop 12/04/24 at 07:31; Status DC Lactated Ringer's 1,000 ml BOLUS STAT IV Last administered on 12/04/24at 07:40; Start 12/04/24 at 07:07; Stop 12/04/24 at 07:14; Status DC Acetaminophen 1,000 mg ONCE ONCE PO Last administered on 12/04/24at 08:29; Start 12/04/24 at 08:30; Stop 12/04/24 at 08:31; Status DC Piperacillin Sod/ Tazobactam Sod 3.375 gm ONCE ONCE IV Last administered on 12/04/24at 09:35; Start 12/04/24 at 09:30; Stop 12/04/24 at 09:31; Status DC Sodium Chloride 1,000 ml @ 125 mls/hr ONCE ONCE IV Last administered on 12/04/24at 09:35; Start 12/04/24 at 09:30; Stop 12/04/24 at 17:29; Status DC Insulin Human Regular INSULIN SLIDING SCAL... ACHS SQ Last administered on 12/07/24at 12:39; Start 12/04/24 at 11:30; Stop 01/03/25 at 11:29 Dextrose 50 ml AD PRN IV; Start 12/04/24 at 11:00; Stop 01/03/25 at 10:59 Glucagon 1 mg AD PRN IM; Start 12/04/24 at 11:00; Stop 01/03/25 at 10:59 Potassium Chloride 100 ml @ 100 mls/hr AD PRN IV; Start 12/04/24 at 11:00; Stop 01/03/25 at 10:59 Potassium Chloride 10 meq AD PRN PO Last administered on 12/09/24at 06:48; St art 12/04/24 at 11:00; Stop 01/03/25 at 10:59 Potassium Chloride 10 meq AD PRN PO; Start 12/04/24 at 11:00; Stop 12/05/24 at 06:30; Status DC Magnesium Sulfate 50 ml @ 0 mls/hr PROTOCOL PRN IV Last administered on 12/07/24at 12:30; Start 12/04/24 at 11:00; Stop 01/03/25 at 10:59 Diphenhydramine HCl 25 mg Q4H PRN PO; Start 12/04/24 at 11:00; Stop 01/03/25 at 10:59 Acetaminophen 650 mg Q6H PRN PO; Start 12/04/24 at 11:00; Stop 12/12/24 at 12:23; Status DC Acetaminophen 650 mg Q4H PRN PO; Start 12/04/24 at 11:00; Stop 12/04/24 at 10:57; Status DC Ondansetron HCl 4 mg Q6H PRN IV; Start 12/04/24 at 11:00; Stop 01/03/25 at 10:59 Zolpidem Tartrate 5 mg HS PRN PO; Start 12/04/24 at 11:00; Stop 01/03/25 at 10:59 Al Hydroxide/Mg Hydroxide 30 ml Q6H PRN PO; Start 12/04/24 at 11:00; Stop 01/03/25 at 10:59 Lactulose 20 gm BID PRN PO; Start 12/04/24 at 11:00; Stop 01/03/25 at 10:59 Nitroglycerin 0.4 mg PROTOCOL PRN SL; Start 12/04/24 at 11:00; Stop 01/03/25 at 10:59 Guaifenesin/ Dextromethorphan 10 ml Q4H PRN PO; Start 12/04/24 at 11:00; Stop 01/03/25 at 10:59 Famotidine 20 mg BID PRN IV; Start 12/04/24 at 11:00; Stop 12/04/24 at 10:57; Status DC Heparin Sodium (Porcine) 5,000 unit BID SQ Last administered on 12/04/24at 22:19; Start 12/04/24 at 21:00; Stop 12/06/24 at 08:45; Status DC Acetaminophen 650 mg Q6H PRN PO Last administered on 12/13/24at 05:26; Start 12/04/24 at 11:00; Stop 01/03/25 at 10:59 Ketorolac Tromethamine 15 mg Q8H PRN IV Last administered on 12/08/24at 20:20; Start 12/04/24 at 11:00; Stop 12/09/24 at 10:59; Status DC Morphine Sulfate 1 mg Q4H PRN IVP Last administered on 12/08/24at 17:34; Start 12/04/24 at 11:00; Stop 12/09/24 at 13:59; Status DC Vancomycin HCl 250 ml @ 125 mls/hr ONCE IV Last administered on 12/04/24at 11:00; Start 12/04/24 at 11:00; Stop 12/04/24 at 12:59; Status DC Piperacillin Sod/ Tazobactam Sod 50 ml @ 12.5 mls/hr Q8H IV Last administered on 12/04/24at 17:09; Start 12/04/24 at 17:30; Stop 12/04/24 at 21:34; Status DC Sodium Chloride 1,000 ml @ 100 mls/hr Q10H IV Last administered on 12/06/24at 02:46; Start 12/04/24 at 11:00; Stop 12/06/24 at 12:47; Status DC Hydralazine HCl 10 mg Q6H PRN IV; Start 12/04/24 at 11:00; Stop 12/04/24 at 13:13; Status DC Famotidine 20 mg Q24H IV Last administered on 12/07/24at 21:32; Start 12/04/24 at 21:00; Stop 12/08/24 at 15:45; Status DC Vancomycin HCl 250 ml @ 125 mls/hr Q24H IV Last administered on 12/05/24at 11:57; Start 12/05/24 at 11:00; Stop 12/05/24 at 13:42; Status DC Norepinephrine 250 ml @ 0 mls/hr PROTOCOL STAT IV Last administered on 12/04/24at 13:12; Start 12/04/24 at 12:14; Stop 12/04/24 at 12:18; Status DC Gadoterate Meglumine 10 mmol STK-MED ONCE IV; Start 12/04/24 at 12:59; Stop 12/04/24 at 12:59; Status DC Cefepime HCl 1 gm Q8H IVPB Last administered on 12/05/24at 00:15; Start 12/04/24 at 16:00; Stop 12/05/24 at 06:31; Status DC Norepinephrine 250 ml @ 0 mls/hr PROTOCOL IV Last administered on 12/05/24at 14:03; Start 12/04/24 at 17:17; Stop 01/03/25 at 17:16 Potassium Chloride 10 meq AD PRN PO Last administered on 12/12/24at 09:01; Start 12/05/24 at 07:00; Stop 01/03/25 at 10:59 Cefepime HCl 1 gm Q12H IVPB; Start 12/05/24 at 12:00; Stop 12/05/24 at 13:42; Status DC Pharmacy Profile Note 1 each ONCE MISC; Start 12/05/24 at 14:00; Stop 12/05/24 at 13:51; Status DC Meropenem 1 gm Q12H IVPB Last administered on 12/12/24at 01:45; Start 12/05/24 at 14:00; Stop 12/12/24 at 13:33; Status DC Lactated Ringer's 1,000 ml @ 75 mls/hr [id number] IV Last administered on 12/11/24at 15:31; Start 12/06/24 at 13:00; Stop 12/12/24 at 12:13; Status DC Acetaminophen 650 mg ONCE ONCE PO Last administered on 12/06/24at 13:02; Start 12/06/24 at 13:00; Stop 12/06/24 at 13:01; Status DC Metoprolol Tartrate 12.5 mg BID PO Last administered on 12/13/24at 08:42; Start 12/06/24 at 21:00; Stop 01/05/25 at 20:59 Potassium Chloride 40 meq ONCE ONCE PO Last administered on 12/07/24at 08:45; Start 12/07/24 at 08:00; Stop 12/07/24 at 08:01; Status DC Potassium Chloride 100 ml @ 50 mls/hr ONCE ONCE IV Last administered on 12/07/24at 08:45; Start 12/07/24 at 08:00; Stop 12/07/24 at 09:59; Status DC Propofol 200 mg STK-MED ONCE IV; Start 12/08/24 at 14:19; Stop 12/08/24 at 1 4:19; Status DC Lidocaine HCl 100 mg STK-MED ONCE .ROUTE; Start 12/08/24 at 14:19; Stop 12/08/24 at 14:20; Status DC Pantoprazole Sodium 40 mg DAILY PO Last administered on 12/13/24at 08:42; Start 12/09/24 at 09:00; Stop 01/08/25 at 08:59 Polyethylene Glycol/ Electrolytes 4,000 ml ONCE ONCE PO Last administered on 12/09/24at 19:21; Start 12/09/24 at 19:00; Stop 12/09/24 at 19:02; Status DC Propofol 200 mg STK-MED ONCE IV; Start 12/10/24 at 14:43; Stop 12/10/24 at 14:42; Status DC Lidocaine HCl 100 mg STK-MED ONCE .ROUTE; Start 12/10/24 at 14:45; Stop 12/10/24 at 14:45; Status DC Hydrocortisone Acetate 1 supp DAILY AZ Last administered on 12/13/24at 08:43; Start 12/11/24 at 21:00; Stop 01/10/25 at 20:59 Ibuprofen 400 mg Q6H PRN PO Last administered on 12/13/24at 08:55; Start 12/12/24 at 12:30; Stop 01/11/25 at 12:29 Ceftriaxone Sodium 2 gm Q24H IVPB Last administered on 12/12/24at 15:07; Start 12/12/24 at 13:30; Stop 12/22/24 at 13:29 KENIA JOHNSON MD Dec 13, 2024 13:42
--- NOTE | 2024-12-13 15:45 | NUR ---
PATIENT DISCHARGED. 2 IVS REMOVED INTACT. MIDLINE FLUSHED AND SALINE LOCKED. EDUCATED ON WRAPPING BEFORE SHOWERING, WHERE TO CONTINUE TREATMENT AT [facility] STARTING TOMORROW. PRESCRIPTION GIVEN TO PATIENT AND SIGNED COPY. ALL QUESTIONS AND CONCERNS ANSWERED. ALL BELONGINGS GATHERED BY SPOUSE AND PATIENT TRANSPORTED DOWN VIA WHEELCHAIR, ALERT AND ORIENTED X 4.
--- NOTE | 2024-12-13 19:12 | PN ---
INFECTIOUS DISEASE PROGRESS NOTE Date of Service: Dec 13, 2024 SUBJECTIVE: This is a 74 year old male patient who was seen today at bedside in room 314. Per report patient was pending cardiac clearance for discharge and has been cleared today and is to follow up with cylinder steamer on Sunday. Patient has been approved for outpatient IV antibiotics with [facility], a midline has been placed and will be discharged to home today. Patient understands his appointment to [facility] for his antibiotics tomorrow. PHYSICAL EXAM EYES: Anicteric. Pupils equal and reactive. HENT: No oral thrush seen, moist Oral mucosa NECK: Supple, no JVD or thyromegaly. LUNGS: Good air entry. No rales, no rhonchi. CARDIOVASCULAR: S1, S2 regular. No murmur heard. ABDOMEN: Soft and normal bowel sounds. CENTRAL NERVOUS SYSTEM: Awake, alert, oriented x 3. SKIN: No rashes, no swelling. LYMPHATICS: No peripheral lymphadenopathy. MUSCULOSKELETAL: No joint swelling, erythema or tenderness. EXTREMITIES: No cyanosis or clubbing. Generalized weakness. BACK: No deformity, no pressure ulcer. GENITOURINARY: No dysuria or hematuria. Vital Sign (Last 12 Hours) 12/13/24 12/13/24 12/13/24 07:58 08:00 11:51 Temp 98.8 98.1 Pulse 77 68 Resp 18 18 B/P (MAP) 139/64 135/66 Pulse Ox 95 95 94 O2 Delivery Room Air Room Air* Room Air O2 Flow Rate 0 FiO2 21 Intake & Output (last 24hrs) 12/12/24 12/12/24 12/13/24 15:00 23:00 07:00 Intake Total 100.0 ml Balance 100.0 ml LABS: Laboratory: Test 12/13/24 11:31 12/12/24 16:03 12/12/24 04:49 Range/Units Whole Blood Glucose 96 70-110 MG/DL Prothrombin Time 12.6 H 9.6-11.6 SEC Prothromb Time International Ratio 1.21 H 0.85-1.15 White Blood Count 7.3 4.8-10.8 K/uL Red Blood Count 3.20 L 4.50-6.20 MIL/uL Hemoglobin 10.4 L 14.0-18.0 g/dL Hematocrit 29.2 L 42-54 % Mean Corpuscular Volume 91.3 79-99 fL Mean Corpuscular Hemoglobin 32.5 27.0-33.0 pg Mean Corpuscular Hemoglobin Concent 35.6 32.0-36.0 g/dL Red Cell Distribution Width 13.2 11.0-15.5 % Platelet Count 146 130-400 K/uL Mean Platelet Volume 9.6 7.5-10.5 fL Nucleated Red Blood Cells 0.0 0.0-0.19 % Sodium Level 141 136-145 mmol/L Potassium Level 3.5 3.5-5.1 mmol/L Chloride Level 109 101-111 mmol/L Carbon Dioxide Level 25 21-32 mmol/L Blood Urea Nitrogen 13 7-18 mg/dL Creatinine 0.6 0.5-1.3 mg/dL Glomerular Filtration Rate Calc 102 >90 mL/min Random Glucose 90 70-105 mg/dL Total Calcium 7.4 L 8.5-10.1 mg/dL ASSESSMENT: E Coli bacteremia. Urinary tract infection with E coli. Sepsis. Streptococcus pharyngitis. Abdominal pain, s/p colonoscopy with findings of polyps, diverticulosis and internal hemorrhoids. Thrombocytopenia, resolving. Dehydration. Diabetes mellitus. PLAN: Continue ceftriaxone. Patient has been approved to [facility] for outpatient IV antibiotic therapy. Midline has been placed. Patient will be discharged to home today. This case was reviewed and discussed with my supervising physician Dr. Gandhi and the above assessment and plan was formulated and agreed upon. ATTESTATION BY PHYSICIAN I have seen and examined the patient. I reviewed the documentation, medical decision making, and treatment plan as noted by the mid-level provider above. I agree with the findings and plan of care. MAURICIO GANDHI MD, [facility] Dec 13, 2024 19:12
== END 2024-12-13 15:52 | disposition home or self-care (01) | DRG 871 ==
LOC: EDH 06:41 → EDHIP 10:46 → 2CH 18:41 → 3CH 12-06 12:07
PROVIDERS: ADMIT Internal Medicine; ATTEND Internal Medicine
PROC: 0DJ08ZZ Inspection of Upper Intestinal Tract, Via Natural or Artificial Opening Endoscopic (ICD-10-PCS; 2024-12-08)
PROC: 30233R1 Transfusion of Nonautologous Platelets into Peripheral Vein, Percutaneous Approach (ICD-10-PCS; 2024-12-08)
PROC: 0DBK8ZX Excision of Ascending Colon, Via Natural or Artificial Opening Endoscopic, Diagnostic (ICD-10-PCS; 2024-12-10)
PROC: 0DBP8ZX Excision of Rectum, Via Natural or Artificial Opening Endoscopic, Diagnostic (ICD-10-PCS; 2024-12-10)
PROC: 0DBM8ZZ Excision of Descending Colon, Via Natural or Artificial Opening Endoscopic (ICD-10-PCS; 2024-12-10)
PROC: 0DBC8ZX Excision of Ileocecal Valve, Via Natural or Artificial Opening Endoscopic, Diagnostic (ICD-10-PCS; 2024-12-10)
PROC: 05HY33Z Insertion of Infusion Device into Upper Vein, Percutaneous Approach (ICD-10-PCS; principal; 2024-12-12)
DX: A41.50 Gram-negative sepsis, unspecified (principal); R65.21 Severe sepsis with septic shock; K76.6 Portal hypertension; N17.9 Acute kidney failure, unspecified; N30.00 Acute cystitis without hematuria; I85.00 Esophageal varices without bleeding; I48.92 Unspecified atrial flutter; E86.0 Dehydration; K76.0 Fatty (change of) liver, not elsewhere classified; K42.9 Umbilical hernia without obstruction or gangrene; E11.649 Type 2 diabetes mellitus with hypoglycemia without coma; K80.20 Calculus of gallbladder without cholecystitis without obstruction; D64.9 Anemia, unspecified; J02.0 Streptococcal pharyngitis; D50.9 Iron deficiency anemia, unspecified; K74.60 Unspecified cirrhosis of liver; K29.00 Acute gastritis without bleeding; K31.89 Other diseases of stomach and duodenum; B96.20 Unspecified Escherichia coli [E. coli] as the cause of diseases classified elsewhere; I10 Essential (primary) hypertension; K29.70 Gastritis, unspecified, without bleeding; E87.6 Hypokalemia; E78.5 Hyperlipidemia, unspecified; E66.01 Morbid (severe) obesity due to excess calories; K64.0 First degree hemorrhoids; D12.8 Benign neoplasm of rectum; D12.4 Benign neoplasm of descending colon; D12.2 Benign neoplasm of ascending colon; D69.59 Other secondary thrombocytopenia; Z79.01 Long term (current) use of anticoagulants; Z80.0 Family history of malignant neoplasm of digestive organs; Z83.3 Family history of diabetes mellitus; Z83.719 Family history of colon polyps, unspecified; Z86.0100 Personal history of colon polyps, unspecified; Z90.49 Acquired absence of other specified parts of digestive tract; Z68.27 Body mass index [BMI] 27.0-27.9, adult; Z98.0 Intestinal bypass and anastomosis status
CPT/HCPCS: 36415; 36430; 36556; 36600; 43235; 45380; 45385; 71045; 74176; 74183; 76705; 78226; 80048; 80053; 80061; 80076; 80305; 81001; 82140; 82150; 82270; 82550; 82803; 82948; 83010; 83036; 83605; 83615; 83690; 83735; 83880; 84145; 84439; 84443; 84481; 84484; 85025; 85027; 85610; 86850; 86900; 86901; 87040; 87086; 87186; 87426; 87804; 87880; 88305; 93005; 93306; 93356; 93971; 99291; A4606; A9537; C1894; G0378; J0692; J0696; J1644; J1815; J1885; J2003; J2185; J2270; J2405; J2543; J2704; J3373; J3475; J3480; J3490; J7030; P9034; A4215; A4222; A4223; A4620; A9575; C1750; J1308

== ENCOUNTER 2025-01-27 13:51 | Inpatient (IN) | payer MEDICARE ==
[2025-01-27] VITALS (13 sets, daily range): BP systolic 95–125; BP diastolic 51–66; PULSE 59–89; RESP 7–23; TEMP 97.6; O2SAT 98
[~2025-01-27] VITALS: Ht 167.6 cm; Wt 64.4 kg
[2025-01-27 14:37] LABS: IMMATURE GRANULOCYTE ABSOLUTE 0.06 K/uL (0-1); NUCLEATED RED BLOOD CELLS 0.0 % (0.0-0.19); PLATELET COUNT (AUTO) 122 K/uL (130-400); RED BLOOD CELL COUNT(AUTO) 3.16 MIL/uL (4.50-6.20); RED CELL DISTRIBUTION WIDTH 14.6 % (11.0-15.5); WHITE BLOOD COUNT (AUTO) 13.2 K/uL (4.8-10.8)
[2025-01-27] MEDS: 0.9%NACL 1000ML 2,109 ML IV ONE (14:37)
[2025-01-27] MEDS: ZOSYN 3.375GM +NS 50ML IV ONE (14:37)
[2025-01-27 14:52] LABS: CREATININE 1.1 mg/dL (0.5-1.3); GLOMERULAR FILTR. RATE CALC 71.0 mL/min (>90); GLUCOSE,RANDOM 107.0 mg/dL (70-105); SODIUM SERUM 132.0 mmol/L (136-145); UREA NITROGEN, BLOOD 34.0 mg/dL (7-18)
--- NOTE | 2025-01-27 14:53 | NUR ---
PT ASKED FOR BEDPAN BUT WAS ONLY ABLE TO PASS FLATUS. HAS NOT HAD A STOOL IN 3 DAYS WHERE HE STATES HE GENERALLY GOES DAILY
[2025-01-27 14:58] LABS: CREATINE KINASE, TOTAL 35.0 U/L (21-232)
[2025-01-27] MEDS: VANCOMYCIN KIT 1 GM/250 ML IV.KIT IV ONE (15:25)
--- NOTE | 2025-01-27 15:25 | EKG ---
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
--- NOTE | 2025-01-27 16:12 | ERN ---
General Chief Complaint: Fever Stated Complaint: FEVER Time Seen by MD: 13:59 Source: EMS History of Present Illness Initial Comments My patient, 74-year-old male, was brought to the emergency by EMS with complaint of fever and generalized weakness. On presentation, patient was noted to be febrile, hypotensive and tachycardic and he was started on sepsis protocol. He was recently admitted at [facility] last month with diagnosis of sepsis and was receiving outpatient IV antibiotics. Due to persistent infection, he was referred to [facility] where he was diagnosed with diskitis as well. He complains of lower back ache but no point tenderness is appreciated. Pain is more prominent with movement. Timing/Duration: getting worse Severity: moderate Allergies: Coded Allergies: No Known Allergies (Unverified Allergy, Unknown, 12/04/24) Home Meds Active Scripts Apixaban (Eliquis) 5 Mg Tablet, 1 TAB PO BID for 30 Days, #60 TAB 0 Refills Prov:ADALBERTO WHARTON IV, MD 12/13/24 Metoprolol Tartrate (Lopressor) 25 Mg Tab, 12.5 MG PO BID, #30 TAB Prov:ADALBERTO WHARTON IV, MD 12/12/24 Hydrocortisone Acetate (Anucort-Hc) 25 Mg Supp.rect, 1 SUPP SC DAILY for 14 Days, #14 EA Prov:ADALBERTO WHARTON IV, MD 12/12/24 Past Medical History Past Medical History: No Pertinent History Past Surgical History: Other Surgical History Other: POLYP REMOVED, SPINAL TAP Constitutional: (+) fever, (+) malaise, (+) weakness Respiratory: (-) cough, (-) orthopnea, (-) short of breath, (-) stridor, (-) wheezing, (-) other documentation Cardiovascular: (-) chest pain, (-) edema, (-) palpitations, (-) syncope, (-) dyspnea on exertion, (-) other documentation Musculoskeletal: (+) back pain Skin: (-) laceration, (-) contusion, (-) abrasion, (-) abscess, (-) rash, (-) change in color, (-) change in hair, (-) change in nails, (-) diaphoresis, (-) dryness, (-) other documentation Neuro: (+) weakness Psych: (-) depression, (-) suicidal ideation, (-) anxiety, (-) emotional problems, (-) auditory hallucinations, (-) visual hallucinations Physical Exam General Appearance: (+) moderate distress Orientation: (+) alert, (+) oriented x 3 Head/Face Trauma: No Ear, Nose, Throat: (+) hearing grossly normal, (+) normal ENT inspection Neck: (+) normal inspection, (+) supple, (+) full range of motion Respiratory: (+) chest non-tender, (+) lungs clear Heart: (+) regular, (+) no gallop, (+) tachycardia Vascular: (+) no edema Gastrointestinal: (+) soft, (+) non-tender, (+) no organomegaly Back: (+) normal inspection, (+) no CVA tenderness, (+) no vertebral tenderness , (+) decreased range of motion, (+) other Extremities: (+) normal range of motion, (+) non-tender, (+) normal inspection, (+) no pedal edema, (+) no calf tenderness Neurologic/Psychiatric: (+) normal speech Skin: (+) normal color Results Laboratory and Microbiology Lab and Micro Result Laboratory Tests Test 01/27/25 14:20 01/27/25 17:56 White Blood Count 13.2 K/uL (4.8-10.8) H Red Blood Count 3.16 MIL/uL (4.50-6.20) L Hemoglobin 10.0 g/dL (14.0-18.0) L Hematocrit 29.4 % (42-54) L Mean Corpuscular Volume 93.0 fL (79-99) Mean Corpuscular Hemoglobin 31.6 pg (27.0-33.0) Mean Corpuscular Hemoglobin Concent 34.0 g/dL (32.0-36.0) Red Cell Distribution Width 14.6 % (11.0-15.5) Platelet Count 122 K/uL (130-400) L Mean Platelet Volume 8.9 fL (7.5-10.5) Immature Granulocyte % (Auto) 0.5 % (0-1) Neutrophils (%) (Auto) 89.3 % (40.0-77.0) H Lymphocytes (%) (Auto) 5.7 % (21.0-51.0) L Monocytes (%) (Auto) 4.2 % (3.0-13.0) Eosinophils (%) (Auto) 0.1 % (0.0-8.0) Basophils (%) (Auto) 0.2 % (0.0-5.0) Neutrophils # (Auto) 11.8 K/uL (1.8-7.7) H Lymphocytes # (Auto) 0.8 K/uL (1.0-4.8) L Monocytes # (Auto) 0.6 K/uL (0.1-1.0) Eosinophils # (Auto) 0.01 K/uL (0.00-0.70) Basophils # (Auto) 0.02 K/uL (0.00-0.20) Absolute Immature Granulocyte (auto 0.06 K/uL (0-1) Nucleated Red Blood Cells 0.0 % (0.0-0.19) White Cell Morphology Comment See comments Sodium Level 132 mmol/L (136-145) L Potassium Level 3.5 mmol/L (3.5-5.1) Chloride Level 100 mmol/L (101-111) L Carbon Dioxide Level 21 mmol/L (21-32) Blood Urea Nitrogen 34 mg/dL (7-18) H Creatinine 1.1 mg/dL (0.5-1.3) Glomerular Filtration Rate Calc 71 mL/min (>90) Random Glucose 107 mg/dL (70-105) H Lactic Acid Level 3.8 mmol/L (0.8-2.5) H 2.8 mmol/L (0.8-2.5) H Total Calcium 8.5 mg/dL (8.5-10.1) Total Creatine Kinase 35 U/L (21-232) # Troponin I High Sensitivity 41 ng/L (4-75) Labs Reviewed?: Yes EKG/XRAY/US/CT/MRI EKG Comment Negative for ST elevation Sinus rhythm Rate 94 SC 221 QT 374 P 58, QRS 33, T 27 MDM MDM: Differential diagnosis: Septic shock versus bacteremia versus diskitis This patient, 74-year-old male, presented with complain of generalized weakness and fever. He was found to be hypotensive and tachycardic and was started on septic protocol. CBC was done which showed leukocytosis. BMP was taken which showed mild hyponatremia. Patient was found to be in lactic acidosis. He was started on 30 mL/kg fluid protocol, with antibiotic vancomycin and Zosyn Due to persistent hypotension, patient was started on Levophed 0.1. For back pain, patient received Zachary. Blood and Urine culture are pending. Patient will be admitted under the care of hospitalist group ED Course Orders Procedure Category Date Status Time Cbc With Differential LAB 01/27/25 Complete 14:02 Basic Metabolic Panel LAB 01/27/25 Complete 14:02 Blood Cult RICHARD 01/27/25 In Process 14:16 Urinalysis Profile LAB 01/27/25 Logged 14:16 Culture Urine RICHARD 01/27/25 Logged 14:16 Troponin I High LAB 01/27/25 Complete Sensitivity 14:16 Lactic Acid LAB 01/27/25 Complete 14:16 Acetaminophen 500mg PHA 01/27/25 Complete Tab (Tylenol 500mg T 14:30 Vancomycin 1g/250ml PHA 01/27/25 Complete Kit (Vancomycin 1g/2 14:30 Zosyn 3.375gm+Ns 50ml PHA 01/27/25 Complete (Zosyn 3.375gm+Ns 14:30 0.9%Nacl 1000ml (Ns PHA 01/27/25 Complete 1000ml) 14:30 Creatine Kinase, Total LAB 01/27/25 Complete 14:20 12 Lead Ekg Tracing- EKG 01/27/25 Complete Technical 15:11 Morphine 2mg Syg PHA 01/27/25 Complete (Morphine 2mg Syg) 15:30 Hydrocodone/Apap PHA 01/27/25 In Process 5/325 (Zachary 5/325mg) 16:00 Norepinephrin 4mg/Ns PHA 01/27/25 In Process 250ml (Levophed 4mg 17:00 Lactic Acid (Removed) LAB 01/27/25 Complete 17:40 Current Medications Medications (Trade) Dose Ordered Sig/Panchito Route PRN Reason Start Time Stop Time Status Last Admin Dose Admin Acetaminophen (TYLenol 500MG TAB) 1,000 mg ONCE ONCE PO 01/27/25 14:30 01/27/25 14:31 DC Acetaminophen/ Hydrocodone Bitart (NORco 5/325MG) 1 tab Q6H PRN PO MODERATE PAIN (4-6) 01/27/25 16:00 02/01/25 12:00 01/27/25 16:38 Morphine Sulfate (morPHINE 2MG SYG) 1 mg Q4H PRN IVP SEVERE PAIN (7-10) 01/27/25 15:30 01/27/25 15:47 DC Norepinephrine 250 ml @ 0 mls/hr PROTOCOL IV 01/27/25 17:00 02/26/25 16:59 01/27/25 17:50 Piperacillin Sod/ Tazobactam Sod (Zosyn 3.375gm+NS 50ml) 3.375 gm ONCE ONCE IV 01/27/25 14:30 01/27/25 14:31 DC 01/27/25 14:37 Sodium Chloride 2,109 ml @ 703 mls/hr ONCE ONCE IV 01/27/25 14:30 01/27/25 17:29 DC 01/27/25 14:37 Vancomycin HCl (Vancomycin 1g/ 250ml Kit) 1 gm ONCE ONCE IV 01/27/25 14:30 01/27/25 14:31 DC 01/27/25 15:25 Vital Signs Date Time Temp Pulse Resp B/P (MAP) Pulse Ox O2 Delivery O2 Flow Rate FiO2 01/27/25 18:33 70 16 130/63 99 Room Air* 0 21 01/27/25 17:30 80 19 76/31 99 Room Air* 0 21 01/27/25 16:30 83 18 80/40 98 Room Air* 0 21 01/27/25 15:30 88 18 83/37 97 Room Air* 0 21 01/27/25 14:09 99.5 119 20 70/42 96 Room Air 0 DX & DISP Disposition: Inpatient Decision to Admit Time: 18:46 Departure Impression: Primary Impression: Septic shock Additional Impressions: Lactic acidosis, Sepsis Condition: Stable Referrals: SELF,REFERRAL (PCP) I have reviewed, & agreed with my scribe's, documentation. I have reviewed the case, and I agree with, Diagnosis and Plan I have examined patient, & reviewed all documents, & agreed W/ the Diagnosis, and Plan GARFIELD MORENO MD Jan 27, 2025 16:12 SUSIE ARNDT MD Jan 27, 2025 18:46
[2025-01-27] MEDS: HYDROcodone/APAP 5/325 1 TAB TABLET PO PRN (16:38)
[2025-01-27] MEDS: NOREPINEPHRIN 4MG/NS 250ML 250 ML IV SCH (17:50)
--- NOTE | 2025-01-27 18:20 | NUR ---
LEVOPHED DOSAGE LEVOPHED WAS DECREASED TO 0.05MCG/KG/MIN FROM 0.1MCG/KG/MIN D/T BP GOING FROM SBP 83 TO SBP 155.
[2025-01-27 18:59] LABS: APPEARANCE,URINE CLEAR (CLEAR); GLUCOSE, URINE (UA) NEGATIVE (NEGATIVE); LEUKOCYTE ESTERASE ,URINE SMALL Leu/uL (NEGATIVE); NITRATE,URINE NEGATIVE (NEGATIVE); OCCULT BLOOD,URINE NEGATIVE (NEGATIVE)
[2025-01-27 19:00] LABS: ADD UA MICROSCOPIC YES
[2025-01-27 19:10] LABS: SQUAMOUS EPITHELIAL CELL,UR Few /HPF (0-2)
--- NOTE | 2025-01-27 19:10 | NUR ---
REPORT ENDORSED TO TIFFANI ALVARENGA
[2025-01-27] MEDS ORDERED: PoTASSium chl 10% ELIXIR 20MEQ 20 MEQ/15 ML UDCUP PO PRN (20:00)
[2025-01-27] MEDS ORDERED: VANCOMYCIN 1G/250ML KIT 250 ML IV SCH (20:00)
[2025-01-27] MEDS: 0.9%NACL 1000ML 1,000 ML IV SCH (20:04)
--- NOTE | 2025-01-27 20:13 | NUR ---
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 NO NEW ORDERS AT THIS TIME.
--- NOTE | 2025-01-27 20:23 | CONS ---
[facility] CONSULTATION NOTE Date Patient Seen: Jan 27, 2025 Time of Visit: 20:30 Supervising Physician: [Dr. Adarsh Villatoro ] Reason for Consultation: [ICU management ] Primary Care Physician: [ Dr. Edgar Villela] Outpatient Specialists: [ ] Inpatient Consults: [BIS team-GINETTE, Dr. Espinosa: ID] PROBLEM LIST: Septic shock requiring pressor support 2/2 discitis/osteomyelitis of L4-L5-POA Stage II pressure injury on sacral area-POA Mild hyponatremia-POA Hyperlactatemia-POA L4-L5 discitis with left psoas myositis on Daptomycin therapy-POA (+) murmurs on 4th-5th left ICS-POA Liver cirrhosis Paroxysmal Afib- completed Eliquis treatment HX of enterococcus UTI Anemia of chronic disease Prediabetes Primary HTN HLD HX of right colectomy and polyp removal PLAN: -Continue critical care management -Wean off Levophed to keep MAP >65 -Continue IV Vanco, will add Cefepime and Flagyl -Order lumbar MRI -Consult Dr. Espinosa as the patient is taking home IV antibiotic of Daptomycin as part of discharge meds for L4-L5 osteomyelitis -Multimodal pain management -Apply allevyn foam on pressure injury on sacral area, q2H turning and repositioning -12/2024: 2decho showed no hemodynamically significant valvular abnormalities. -The rest of medical management per primary team HPI: [Per hospitalist JAVA GROOVY DEVELOPER's notes: "This is a 74-year-old male past medical history of hypertension, diabetes, hyperlipidemia ,UTI due to Ecoli and obesity with past surgical history of right colectomy and polyps removal who was brought by EMS to the ED for complaints of fever and generalized body weakness.Patient was recently admitted in this facility for septic shock and was treated with ABT for E coli and was receiving IV ABT as outpatient managed by as per patient .Patient reports he was also recently admitted in [place] and was diagnosed with Diskitis and was discharged yesterday and came back here.Today he started having fever so he decided to come to the ED for evaluation.Upon ER arrival patient V/S was T99.5,HR 119,BP 70/42 and Sat 96% RA." BIS team was consulted for critical care management 2/2 septic shock requiring pressor support. On my assessment, patient is resting comfortably on bed without s/sx of distress. He denies pain. He appears jaundiced with icteric sclera. Sacral area has stage II pressure injury. He claims he was supposed to start on receiving Daptomycin IV as part of his discitis. He was diagnosed with L4-L5 osteomyelitis in [facility] but without abscess. He claims that the spinal fluid sent for microbiology was negative for bacterial growth. Vertebral palpation was negative for tenderness, negative for erythema or signs of cellulitis. His bl ood pressure is responding favorably from Levophed with MAP >65 at this time. No signs of hemodynamic instability. We will continue to follow along patient's response to treatment. On behalf of BIS team, thank you for the opportunity to participate on Mr. Oreilly's care.] PAST MEDICAL HX: see above PAST SURGICAL HX: noncontributory SOCIAL HISTORY: No tobacco, ETOH, or illicit drug use Coded Allergies: No Known Allergies (Unverified Allergy, Unknown, 12/04/24) REVIEW OF SYSTEMS: 12 point ROS reviewed with patient. Pertinent positives mentioned above. Otherwise negative. PHYSICAL EXAM: GENERAL: alert, awake oriented x 3 HEENT: EOMI, Sclera icteric, moist mucosa NECK: Supple, no JVD, trachea midline LUNGS: Clear breath sounds bilaterally. No wheezes HEART: Regular rate and rhythm. Normal S1 and S2, (+) murmurs on 4th-5th left ICS ABD: Abdomen soft, nontender. Bowel sounds present EXT: No clubbing cyanosis or edema; no tenderness on vertebrae SKIN: Jaundiced, stage II pressure injury on sacrum NEURO: Alert and oriented to person, follows commands Vital Signs (last 8hr) Date Time Temp Pulse Resp B/P (MAP) Pulse Ox O2 Delivery O2 Flow Rate FiO2 01/27/25 19:34 76 18 96/57 96 Room Air* 0 01/27/25 18:33 70 16 130/63 99 Room Air* 0 01/27/25 17:30 80 19 76/31 99 Room Air* 0 01/27/25 16:30 83 18 80/40 98 Room Air* 0 01/27/25 15:30 88 18 83/37 97 Room Air* 0 01/27/25 14:09 99.5 119 20 70/42 96 Room Air 0 LABS: Hematology Labs: Test 01/27/25 14:20 Range/Units White Blood Count 13.2 H 4.8-10.8 K/uL Red Blood Count 3.16 L 4.50-6.20 MIL/uL Hemoglobin 10.0 L 14.0-18.0 g/dL Hematocrit 29.4 L 42-54 % Mean Corpuscular Volume 93.0 79-99 fL Mean Corpuscular Hemoglobin 31.6 27.0-33.0 pg Mean Corpuscular Hemoglobin Concent 34.0 32.0-36.0 g/dL Red Cell Distribution Width 14.6 11.0-15.5 % Platelet Count 122 L 130-400 K/uL Mean Platelet Volume 8.9 7.5-10.5 fL Immature Granulocyte % (Auto) 0.5 0-1 % Neutrophils (%) (Auto) 89.3 H 40.0-77.0 % Lymphocytes (%) (Auto) 5.7 L 21.0-51.0 % Monocytes (%) (Auto) 4.2 3.0-13.0 % Eosinophils (%) (Auto) 0.1 0.0-8.0 % Basophils (%) (Auto) 0.2 0.0-5.0 % Neutrophils # (Auto) 11.8 H 1.8-7.7 K/uL Lymphocytes # (Auto) 0.8 L 1.0-4.8 K/uL Monocytes # (Auto) 0.6 0.1-1.0 K/uL Eosinophils # (Auto) 0.01 0.00-0.70 K/uL Basophils # (Auto) 0.02 0.00-0.20 K/uL Absolute Immature Granulocyte (auto 0.06 0-1 K/uL Nucleated Red Blood Cells 0.0 0.0-0.19 % White Cell Morphology Comment See comments Chemistry Labs: Test 01/27/25 17:56 01/27/25 14:20 Range/Units Lactic Acid Level 2.8 H 0.8-2.5 mmol/L Sodium Level 132 L 136-145 mmol/L Potassium Level 3.5 3.5-5.1 mmol/L Chloride Level 100 L 101-111 mmol/L Carbon Dioxide Level 21 21-32 mmol/L Blood Urea Nitrogen 34 H 7-18 mg/dL Creatinine 1.1 0.5-1.3 mg/dL Glomerular Filtration Rate Calc 71 >90 mL/min Random Glucose 107 H 70-105 mg/dL Total Calcium 8.5 8.5-10.1 mg/dL Total Creatine Kinase 35 # 21-232 U/L Troponin I High Sensitivity 41 4-75 ng/L DIAGNOSTICS / RADIOLOGY RESULTS: [ ] PLAN NEURO: Minimize central acting medications as possible. Fall Precautions. Well lighted room through the day and minimize interruptions through the night to prevent acute delirium. PULMONARY: Supplemental 02 as needed Titrate Fio2 to keep Spo2 > or = 90% DuoNebs and CPT as needed IS hourly while awake for pulmonary hygiene Out of bed to chair as tolerated VAP Bundle Vent/BIPAP Settings: [ ] Driving pressure: [ ] P Plat: [ ] Static C: [ ] Static R: [ ] P/F Ratio: [ ] CARDIOVASCULAR: Follow hemodynamics. Titrate vasopressor to keep MAP >65 or systolic blood pressure >95mmHg DRIPS: [Levophed ] LINES: [Left arm PICC ] GI & NUTRITION: Continue nutritional support Aspirations precautions Prokinetic agents and laxatives as needed KIDNEYS & ELECTROLYTES: Strict monitoring of intake and output Daily weights Avoid nephrotoxic agents Monitor electrolytes and replace as needed Goal urine output of 30mL/hr or 0.5mL/kg/hr Urine output: [ ] Fluid Balance: [ ] ENDOCRINE: Maintain blood glucose between 100-180 at all times. Insulin sliding scale for blood glucose management INFECTIOUS DISEASE: Trend temperature. Galvan-culture if febrile. Micro: [ ] Antibiotics: [IV Vancomycin: 01/26/25- IV Cefepime: 01/26/25- IV Flagyl: 01/26/25] HEMATOLOGY & COAGULATION: Monitor H&H. Keep Hgb > 7 Transfuse 1 unit of PRBC for Hgb < 7 Transfuse 1 pack of platelets of platelets < 20, 000 Watch for any signs and symptoms of bleeding SKIN: Pressure ulcer prevention per facility protocol Rehab: PT/OT Prophylaxis: GI: [Pepcid] DVT: [Heparin ] Code Status: Full Resuscitation Disposition: [ICU ] Other: Total patient care time: 45 minutes SOFIA RAUSCH AGACNP Jan 27, 2025 20:23
[2025-01-27] MEDS ORDERED: VANCOMYCIN PROTOCOL PER PHARMACY IV SCH (20:30)
[2025-01-27] MEDS: ZOSYN 3.375GM+NS 50ML 50 ML IV SCH (21:24)
--- NOTE | 2025-01-27 21:29 | HP ---
[facility] HISTORY AND PHYSICAL Date of Service: Jan 27, 2025 Time of Service: 21:29 PCP: Self Referral HISTORY OF PRESENT ILLNESS: This is a 74-year-old male past medical history of hypertension, diabetes, hyperlipidemia ,UTI due to Ecoli and obesity with past surgical history of right colectomy and polyps removal who was brought by EMS to the ED for complaints of fever and generalized body weakness.Patient was recently admitted in this facility for septic shock and was treated with ABT for E coli and was receiving IV ABT as outpatient managed by as per patient .Patient reports he was also recently admitted in [place] and was diagnosed with Diskitis and was discharged yesterday and came back here.Today he started having fever so he decided to come to the ED for evaluation.Upon ER arrival patient V/S was T99.5,HR 119,BP 70/42 and Sat 96% RA. Seen and examined patient in the ER awake,alert and coherent,states he feels much better now than when he came in he said.On further evaluation ,patient has an open wound to sacral area,and patient reports he has been having it since he was discharge home.Patient is also on Levophed drip.Patient denies,nausea,vomiting,chest pain,palpitation,cough and shortness of breath. Latest vital signs heart rate 67, blood pressure 90/50 saturation 99% on room air. Labs: WBC 13 with negative left shift of neutrophils 89, hemoglobin 10, hematocrit 29, platelet count 122. Sodium 132, chloride 100, BUN 34, lactic acid 3.8-2.8 troponin 41. Urinalysis significant for urine bilirubin small, urine urobilinogen two, small esterase, urine WBC 6-10. While in the ER patient received vancomycin 1 g IV, Zosyn 3.375 IV, Tylenol 1000 mg p.o. and fluid resuscitation of NS 30 mL/kilogram over 3 hours and morphine 1 mg IV. We will admit patient for further medical management. REVIEW OF SYSTEMS CONSTITUTIONAL: Fever and chills Denies night sweats. No unintentional weight loss reported. NEUROLOGICAL: Complain generalized body weakness Denies headache, amaurosis fugax,sensory deficit, vertigo/spinning sensation, gait abnormalities, or tremors. ENT: No hearing loss, otalgia, otorrhea, rhinitis, rhinorrhea, hoarseness, or sore throat. CARDIOVASCULAR: Denies any exertional angina, dyspnea on exertion, orthopnea, paroxysmal nocturnal dyspnea, palpitations, life-threatening arrhythmias, claudication. PULMONARY: Denies any shortness of breath, cough, phlegm/sputum, hemoptysis, pleuritic chest pain. SLEEP: Denies morning headaches, daytime somnolence or napping. Denies difficulty falling asleep, staying asleep, waking from sleep. Denies knowledge of snoring. GASTROINTESTINAL: Denies any type of dysphagia to either liquids or solids. Denies nausea, vomiting, pyrosis, early satiety, abdominal pain, diarrhea, constipation, or changes in stool consistency or caliber. Denies coffee-ground emesis, hematemesis, hematochezia, or melanotic stools. GENITOURINARY: Denies frequency, urgency, nocturia, hematuria or incontinence (Storage/Irritative symptoms.) Low urinary stream, straining to void, urinary intermittency or hesitancy, splitting of the voiding stream, terminal dribbling. ENDOCRINOLOGIC: Denies polyuria, polydipsia, polyphagia or heat/cold intolerances. HEMATOLOGIC: Denies thrombophilia/previous clots, or coagulopathy/bleeding disorders. ONCOLOGIC: Denies personal history of malignancy. DERMATOLOGIC: Denies rashes or pruritus. PSYCHIATRIC: Denies any suicidal or homicidal ideation. Denies hallucinations. PAST MEDICAL HISTORY: [ hypertension, diabetes, hyperlipidemia ,UTI due to Ecoli and obesity ] PAST SURGICAL HISTORY: [ right colectomy and polyps removal PAST SOCIAL HISTORY: [ Patient lives with significant other. Patient denies alcohol tobacco and recreational drug use ] FAMILY HISTORY: [Mother and father - diabetes ] Coded Allergies: No Known Allergies (Unverified Allergy, Unknown, 12/04/24) PHYSICAL EXAM GENERAL APPEARANCE: The patient is awake, alert, and oriented, in no acute cardiopulmonary distress. NEUROLOGICAL: Cranial nerves II-XII grossly intact. Motor is 5/5 in bilateral upper and lower extremities proximal to distal. No sensory deficits. HEENT: Face is symmetric. Pupils are equal and reactive. Extraocular movements are intact. NECK: Supple. No JVD. No thyromegaly. No submental, submandibular, pre- /postauricular, occipital or supraclavicular lymphadenopathy. CHEST: Normal chest expansion. No Telemetry. LUNGS: Absence of any rales, rhonchi or any wheezing. CARDIOVASCULAR: Regular. S1 and S2 normal. No appreciable rubs, murmurs or gallops. ABDOMEN: Soft, nontender, and nondistended. There is no rebound, voluntary guarding, or rigidity. : Deferred. No Mariano. EXTREMITIES: Non-edematous and not cyanotic. No clubbing. Good capillary refill. SKIN: open wound to sacral area Vital Sign (Last 24 Hours) 01/27/25 01/27/25 14:09 20:36 Temp 99.5 Pulse 67 Resp 18 B/P (MAP) 90/50 Pulse Ox 99 O2 Delivery Room Air* O2 Flow Rate 0 FiO2 21 LABS: Laboratory: Test 01/27/25 18:35 01/27/25 17:56 01/27/25 14:20 Range/Units Urine Color YELLOW YELLOW Urine Appearance CLEAR CLEAR Urine pH 6.0 5.0-8.0 Urine Specific Minerva 1.010 1.001-1.031 Urine Protein NEGATIVE NEGATIVE mg/dL Urine Glucose (UA) NEGATIVE NEGATIVE mg/dL Urine Ketones NEGATIVE NEGATIVE mg/dL Urine Occult Blood NEGATIVE NEGATIVE Urine Nitrate NEGATIVE NEGATIVE Urine Bilirubin SMALL H NEGATIVE mg/dL Urine Urobilinogen 2.0 H 0.2-1.0 mg/dL Urine Leukocyte Esterase SMALL H NEGATIVE Karon/uL Urine RBC 0-1 0-1 /HPF Urine WBC 6-10 H 0-1 /HPF Urine Squamous Epithelial Cells Few 0-2 /HPF Urine Bacteria Rare None Seen /HPF Lactic Acid Level 2.8 H 0.8-2.5 mmol/L White Blood Count 13.2 H 4.8-10.8 K/uL Red Blood Count 3.16 L 4.50-6.20 MIL/uL Hemoglobin 10.0 L 14.0-18.0 g/dL Hematocrit 29.4 L 42-54 % Mean Corpuscular Volume 93.0 79-99 fL Mean Corpuscular Hemoglobin 31.6 27.0-33.0 pg Mean Corpuscular Hemoglobin Concent 34.0 32.0-36.0 g/dL Red Cell Distribution Width 14.6 11.0-15.5 % Platelet Count 122 L 130-400 K/uL Mean Platelet Volume 8.9 7.5-10.5 fL Immature Granulocyte % (Auto) 0.5 0-1 % Neutrophils (%) (Auto) 89.3 H 40.0-77.0 % Lymphocytes (%) (Auto) 5.7 L 21.0-51.0 % Monocytes (%) (Auto) 4.2 3.0-13.0 % Eosinophils (%) (Auto) 0.1 0.0-8.0 % Basophils (%) (Auto) 0.2 0.0-5.0 % Neutrophils # (Auto) 11.8 H 1.8-7.7 K/uL Lymphocytes # (Auto) 0.8 L 1.0-4.8 K/uL Monocytes # (Auto) 0.6 0.1-1.0 K/uL Eosinophils # (Auto) 0.01 0.00-0.70 K/uL Basophils # (Auto) 0.02 0.00-0.20 K/uL Absolute Immature Granulocyte (auto 0.06 0-1 K/uL Nucleated Red Blood Cells 0.0 0.0-0.19 % White Cell Morphology Comment See comments Sodium Level 132 L 136-145 mmol/L Potassium Level 3.5 3.5-5.1 mmol/L Chloride Level 100 L 101-111 mmol/L Carbon Dioxide Level 21 21-32 mmol/L Blood Urea Nitrogen 34 H 7-18 mg/dL Creatinine 1.1 0.5-1.3 mg/dL Glomerular Filtration Rate Calc 71 >90 mL/min Random Glucose 107 H 70-105 mg/dL Total Calcium 8.5 8.5-10.1 mg/dL Total Creatine Kinase 35 # 21-232 U/L Troponin I High Sensitivity 41 4-75 ng/L Current Medications Medications (Trade) Dose Ordered Sig/Panchito Route PRN Reason Start Time Stop Time Status Last Admin Dose Admin Acetaminophen (TYLenol 325MG TAB) 650 mg Q4H PRN PO MILD PAIN (1-3) 01/27/25 20:00 02/26/25 19:59 Acetaminophen (TYLenol 325MG TAB) 650 mg Q6H PRN PO TEMPERATURE GREATER THAN 101.5 01/27/25 20:00 02/26/25 19:59 Acetaminophen/ Hydrocodone Bitart (NORco 5/325MG) 1 tab Q6H PRN PO MODERATE PAIN (4-6) 01/27/25 16:00 02/01/25 12:00 01/27/25 16:38 1 TAB Cefepime HCl (MAXipime 2 gm vial) 2 gm Q8H IVPB 01/27/25 21:30 02/17/25 21:29 UNV Famotidine (Pepcid 20mg Tab) 20 mg DAILY PO 01/28/25 09:00 02/27/25 08:59 Lactated Ringer's 1,000 ml @ 75 mls/hr [id number] IV 01/27/25 21:30 02/26/25 21:29 Magnesium Sulfate 50 ml @ 0 mls/hr PROTOCOL PRN IV OTHER [SEE ORDER COMMENTS] 01/27/25 20:00 02/26/25 19:59 Metronidazole/ Sodium Chloride (flaGYL) 500 mg Q8H IV 01/27/25 21:30 02/17/25 21:29 UNV Morphine Sulfate (morPHINE 2MG SYG) 1 mg Q4H PRN IVP SEVERE PAIN (7-10) 01/27/25 15:30 01/27/25 15:47 DC Norepinephrine 250 ml @ 0 mls/hr PROTOCOL IV 01/27/25 17:00 02/26/25 16:59 01/27/25 17:50 26.25 MLS/HR Ondansetron HCl (zoFRAN 4MG INJ) 4 mg Q6H PRN IV NAUSEA/VOMITING 01/27/25 20:00 02/26/25 19:59 Piperacillin Sod/ Tazobactam Sod 50 ml @ 12.5 mls/hr Q8H IV 01/27/25 22:00 02/06/25 21:59 01/27/25 21:24 12.5 MLS/HR Potassium Chloride 100 ml @ 100 mls/hr AD PRN IV POTASSIUM PROTOCOL 01/27/25 20:00 02/26/25 19:59 Potassium Chloride (K-Dur/Klor-Con 20meq) 20 meq AD PRN PO POTASSIUM PROTOCOL 01/27/25 20:00 02/26/25 19:59 Potassium Chloride (KCl 10% Elixir 20meq/15ml) 20 meq AD PRN PO POTASSIUM PROTOCOL 01/27/25 20:00 02/26/25 19:59 Sodium Chloride 1,000 ml @ 100 mls/hr Q10H IV 01/27/25 20:00 01/28/25 15:59 01/27/25 20:04 100 MLS/HR Vancomycin HCl 250 ml @ 125 mls/hr ONCE IV 01/27/25 20:00 01/27/25 20:09 DC Vancomycin HCl 250 ml @ 125 mls/hr Q24H IV 01/28/25 20:00 02/07/25 19:59 Vancomycin HCl (Vancomycin Protocol) 1 each AD IV 01/27/25 20:30 02/10/25 20:29 DIAGNOSTICS / RADIOLOGY: [ ] ASSESSMENT: Septic shock with recent diskitis POA Sacral open wound POA Acute kidney injury POA Acute normocytic normochromic anemia POA Acute thrombocytopenia Mild hyponatremia POA Mild hypochloremia POA Lactic acidosis POA Suspected acute urinary tract infection POA PLAN: We will admit patient in medical surgical We will start on heart healthy diet We will continue Levophed drip for blood pressure support per ICU protocol We will start NS @ 100 ml / hr x2 bags and re evaluate We will continue Zosyn and vancomycin for broad-spectrum coverage We will start on famotidine 20 mg p.o. daily for GI prophylaxis We will replace electrolytes as needed per protocol We will add prn medication for fever,pain,cough , nausea and vomiting We will reconcile home meds once medlist available We will request case management service We will seek Infectious Disease consultation We will seek critical care consultation We will request labs in am Further orders to follow depending on above results Case discussed with attending physician and came up with above treatment and plan of care. ADVANCED CARE PLANNING 1. Which of the following were discussed? Hospice Care - No Therapeutic options - Yes Advance Directives - No Other discussions - 2. Discussed with who? Patient 3. Voluntary nature of this service was explained to the patient? Yes 4. Amount of time spent - __26 min 5. Reviewed by Physician? (if this service was performed by NPP) Yes Patient seen and examined by me. Agree with note by [employer] SEE ADDITIONAL ORDERS PER CHART DISCUSSED WITH NURSING STAFF ALEJANDRINA BUITRAGO SOCIAL CONTACT WORKER Jan 27, 2025 21:29
[2025-01-27 21:55] LABS: ASPARTATE AMINOTRANSFERASE 172.0 U/L (10-37); TOTAL PROTEIN, SERUM 7.1 g/dL (6.0-8.3)
[2025-01-27] MEDS: LACTATED RINGERS 1000ML 1,000 ML IV SCH (23:17)
[2025-01-28] VITALS (99 sets, daily range): BP systolic 66–152; BP diastolic 29–94; PULSE 55–93; RESP 5–25; TEMP 97.7–98.4; O2SAT 97–98
[2025-01-28 04:34] LABS: IMMATURE GRANULOCYTE ABSOLUTE 0.06 K/uL (0-1); NUCLEATED RED BLOOD CELLS 0.0 % (0.0-0.19); PLATELET COUNT (AUTO) 110 K/uL (130-400); RED BLOOD CELL COUNT(AUTO) 2.89 MIL/uL (4.50-6.20); RED CELL DISTRIBUTION WIDTH 14.8 % (11.0-15.5); WHITE BLOOD COUNT (AUTO) 14.3 K/uL (4.8-10.8)
[2025-01-28 04:55] LABS: ERYTHROCYTE SEDIMENTATION RATE 36 MM/HR (0-20)
[2025-01-28 05:37] LABS: ASPARTATE AMINOTRANSFERASE 99.0 U/L (10-37); CREATININE 0.7 mg/dL (0.5-1.3); GLOMERULAR FILTR. RATE CALC 97.0 mL/min (>90); GLUCOSE,RANDOM 107.0 mg/dL (70-105); SODIUM SERUM 138.0 mmol/L (136-145); TOTAL PROTEIN, SERUM 6.2 g/dL (6.0-8.3); UREA NITROGEN, BLOOD 20.0 mg/dL (7-18)
[2025-01-28] MEDS ORDERED: PHARMACY COMMUNICATION MISC SCH (10:30)
--- NOTE | 2025-01-28 10:31 | NUR ---
[facility] Consult: Patient assessed by wound healing team. See wound assessment. Assessment and recommendations provided to primary nurse. Education provided to patient r/t to wound, and pressure ulcer prevention/management.
--- NOTE | 2025-01-28 10:33 | NUR ---
DC: MELLISA Pt reports he was discharged from [facility] in to home on Sunday. Pt came to ER with fever. Pt was discharged to [facility] for IV ABX and recd 1 treatment. Pt wanting to go to [facility] at in to complete his ABX treatments.. Pt signed consent for referral Pt lives at home with GF Joyce Garcia [phone]. Pt states at this time he requires assistance with ADLS, has a walker. No in home care services. PCP is Edgar Villela in [place] and uses [facility] for rx. CM o follow and assist as needed. Monet ALEMAN made aware
[2025-01-28] MEDS: FAMOTIDINE 20MG TAB PO SCH (11:03)
--- NOTE | 2025-01-28 12:47 | PN ---
[facility] PROGRESS NOTE Date Patient Seen: Jan 28, 2025 Time of Visit: 12:42 Supervising Physician: JOSEPHINE AMEZCUA MD Primary Care Physician: [ Dr. Edgar Villela] Outpatient Specialists: [ ] Inpatient Consults: [[facility], Dr. Espinosa: ID] PROBLEM LIST: Acute sepsis with septic shock on admission Diskitis of the L4-L5 area on admission Gram-positive cocci bacteremia Liver cirrhosis Hepatic transaminitis Atrial fibrillation Acute complicated cystitis with Enterococcus bacteria Prediabetes Primary hypertension Normocytic anemia INTERVAL HISTORY: Patient is seen in the ICU Patient remains on Levophed requiring vasopressors support Very weak, severely deconditioned, bed ridden. Systolic blood pressure in the low 90s Patient complains of fatigue and weakness, complains of low back pain Patient complains of chills, denies fevers No nausea, no vomiting Already mild abdominal pain REVIEW OF SYSTEMS: 12 point ROS reviewed with patient. Pertinent positives mentioned above. Otherwise negative. PHYSICAL EXAM: GENERAL: alert, awake oriented x 3 HEENT: EOMI, Sclera icteric, moist mucosa NECK: Supple, no JVD, trachea midline LUNGS: Clear breath sounds bilaterally. No wheezes HEART: Regular rate, regular rhythm. Systolic ejection murmur 3/4 ABD: Abdomen soft, nontender. Bowel sounds present EXT: No clubbing cyanosis or edema; no tenderness on vertebrae SKIN: Jaundiced, stage II pressure injury on sacrum NEURO: Alert and oriented to person, follows commands Vital Signs (last 8hr) Date Time Temp Pulse Resp B/P (MAP) Pulse Ox O2 Delivery O2 Flow Rate FiO2 01/28/25 06:15 69 99 01/28/25 06:08 77 13 105/65 (78) 95 01/28/25 06:00 78 10 99 01/28/25 05:52 60 15 124/54 (77) 99 01/28/25 05:45 60 15 99 01/28/25 05:37 60 15 105/52 (69) 99 01/28/25 05:30 72 98 01/28/25 05:23 58 5 152/69 (96) 98 01/28/25 05:15 58 16 99 01/28/25 05:07 60 15 103/50 (67) 98 01/28/25 05:00 59 15 98 LABS: Hematology Labs: Test 01/28/25 04:27 01/27/25 14:20 Range/Units White Blood Count 14.3 H 4.8-10.8 K/uL Red Blood Count 2.89 L 4.50-6.20 MIL/uL Hemoglobin 9.5 L 14.0-18.0 g/dL Hematocrit 26.7 L 42-54 % Mean Corpuscular Volume 92.4 79-99 fL Mean Corpuscular Hemoglobin 32.9 27.0-33.0 pg Mean Corpuscular Hemoglobin Concent 35.6 32.0-36.0 g/dL Red Cell Distribution Width 14.8 11.0-15.5 % Platelet Count 110 L 130-400 K/uL Mean Platelet Volume 8.9 7.5-10.5 fL Immature Granulocyte % (Auto) 0.4 0-1 % Neutrophils (%) (Auto) 76.9 40.0-77.0 % Lymphocytes (%) (Auto) 17.2 L 21.0-51.0 % Monocytes (%) (Auto) 5.1 3.0-13.0 % Eosinophils (%) (Auto) 0.3 0.0-8.0 % Basophils (%) (Auto) 0.1 0.0-5.0 % Neutrophils # (Auto) 11.0 H 1.8-7.7 K/uL Lymphocytes # (Auto) 2.5 1.0-4.8 K/uL Monocytes # (Auto) 0.7 0.1-1.0 K/uL Eosinophils # (Auto) 0.04 0.00-0.70 K/uL Basophils # (Auto) 0.02 0.00-0.20 K/uL Absolute Immature Granulocyte (auto 0.06 0-1 K/uL Nucleated Red Blood Cells 0.0 0.0-0.19 % Erythrocyte Sedimentation Rate 36 H 0-20 MM/HR White Cell Morphology Comment See comments Chemistry Labs: Test 01/28/25 04:27 01/27/25 17:56 01/27/25 14:20 Range/Units Sodium Level 138 136-145 mmol/L Potassium Level 3.8 3.5-5.1 mmol/L Chloride Level 109 101-111 mmol/L Carbon Dioxide Level 24 21-32 mmol/L Blood Urea Nitrogen 20 H 7-18 mg/dL Creatinine 0.7 0.5-1.3 mg/dL Glomerular Filtration Rate Calc 97 >90 mL/min Random Glucose 107 H 70-105 mg/dL Lactic Acid Level 1.2 0.8-2.5 mmol/L Total Calcium 8.1 L 8.5-10.1 mg/dL Magnesium Level 1.90 1.80-2.40 mg/dL Total Bilirubin 1.3 H 0.2-1.0 mg/dL Aspartate Amino Transf (AST/SGOT) 99 H 10-37 U/L Alanine Aminotransferase (ALT/SGPT) 95 H 12-78 U/L Alkaline Phosphatase 290 H 50-136 U/L Total Protein 6.2 6.0-8.3 g/dL Albumin 1.6 L 3.5-5.0 g/dL Procalcitonin 16.94 H 0.05-0.5 ng/mL Direct Bilirubin 0.9 H 0.0-0.3 mg/dL Total Creatine Kinase 35 # 21-232 U/L Troponin I High Sensitivity 41 4-75 ng/L DIAGNOSTICS / RADIOLOGY RESULTS: PLAN Get 2D echocardiogram if not done already Get cortisol levels Continue medical management in the ICU, patient remains with pressor support and persistent hypotension with persistent shock NEURO: Minimize central acting medications as possible. Fall Precautions. Well lighted room through the day and minimize interruptions through the night to prevent acute delirium. PULMONARY: Supplemental 02 as needed Titrate Fio2 to keep Spo2 > or = 90% DuoNebs and CPT as needed IS hourly while awake for pulmonary hygiene Out of bed to chair as tolerated VAP Bundle Vent/BIPAP Settings: [ ] Driving pressure: [ ] P Plat: [ ] Static C: [ ] Static R: [ ] P/F Ratio: [ ] CARDIOVASCULAR: Follow hemodynamics. Titrate vasopressor to keep MAP >65 or systolic blood pressure >95mmHg DRIPS: [Levophed ] LINES: [Left arm PICC ] GI & NUTRITION: Continue nutritional support Aspirations precautions Prokinetic agents and laxatives as needed KIDNEYS & ELECTROLYTES: Strict monitoring of intake and output Daily weights Avoid nephrotoxic agents Monitor electrolytes and replace as needed Goal urine output of 30mL/hr or 0.5mL/kg/hr Urine output: [ ] Fluid Balance: [ ] ENDOCRINE: Maintain blood glucose between 100-180 at all times. Insulin sliding scale for blood glucose management INFECTIOUS DISEASE: Trend temperature. Galvan-culture if febrile. Micro: [Gram-positive cocci in the blood stream ] Antibiotics: [IV Vancomycin: 01/26/25- IV Cefepime: 01/26/25- IV Flagyl: 01/26/25] HEMATOLOGY & COAGULATION: Monitor H&H. Keep Hgb > 7 Transfuse 1 unit of PRBC for Hgb < 7 Transfuse 1 pack of platelets of platelets < 20, 000 Watch for any signs and symptoms of bleeding SKIN: Pressure ulcer prevention per facility protocol Rehab: PT/OT Prophylaxis: GI: [Pepcid] DVT: [Heparin ] Code Status: Full Resuscitation Disposition: [ICU ] Other: Total patient care time: 35 minutes I personally scribed for JOSEPHINE AMEZCUA MD ([email or web address]) on 01/28/25 at 12:47. Electronically submitted by Heriberto Flood ([email or web address]). JOSEPHINE AMEZCUA MD Jan 28, 2025 12:47
--- NOTE | 2025-01-28 13:20 | PN ---
[facility] PROGRESS NOTE Date of Service: Jan 28, 2025 Time of Service: 13:20 SUBJECTIVE: This is a 74-year-old male past medical history of hypertension, diabetes, hyperlipidemia ,UTI due to Ecoli and obesity with past surgical history of right colectomy and polyps removal who was brought by EMS to the ED for complaints of fever and generalized body weakness.Patient was recently admitted in this facility for septic shock and was treated with ABT for E coli and was receiving IV ABT as outpatient managed by as per patient .Patient reports he was also recently admitted in [place] and was diagnosed with Diskitis and was discharged yesterday and came back here.Today he started having fever so he decided to come to the ED for evaluation.Upon ER arrival patient V/S was T99.5,HR 119,BP 70/42 and Sat 96% RA. Seen and examined patient in the ER awake,alert and coherent,states he feels much better now than when he came in he said.On further evaluation ,patient has an open wound to sacral area,and patient reports he has been having it since he was discharge home.Patient is also on Levophed drip.Patient denies,nausea,vomiting,chest pain,palpitation,cough and shortness of breath. Latest vital signs heart rate 67, blood pressure 90/50 saturation 99% on room air. Labs: WBC 13 with negative left shift of neutrophils 89, hemoglobin 10, hematocrit 29, platelet count 122. Sodium 132, chloride 100, BUN 34, lactic acid 3.8-2.8 troponin 41. Urinalysis significant for urine bilirubin small, urine urobilinogen two, small esterase, urine WBC 6-10. While in the ER patient received vancomycin 1 g IV, Zosyn 3.375 IV, Tylenol 1000 mg p.o. and fluid r esuscitation of NS 30 mL/kilogram over 3 hours and morphine 1 mg IV. We will admit patient for further medical management. 01/28: Patient was seen and evaluated at bedside in room 207. He was awake, alert, and oriented 3, sitting comfortably in his chair during the encounter. He denies dizziness, generalized weakness, chest pain, shortness of breath, n ausea, vomiting, or other acute complaints today. He states he is relieved that his blood pressure has been improving. He remains on norepinephrine at 0.04 mcg/kg/hr. A 2D echocardiogram obtained today revealed suspicious vegetations on the mitral valve; cardiology has been consulted and evaluation is pending. Infectious Diseases has also evaluated the patient and recommended continuing vancomycin, ceftriaxone, and metronidazole (Flagyl). Blood cultures have grown gram-positive cocci in chains; final organism identification and sensitivities are pending. The patient is also pending MRI, but current pressor support is not MRI-compatible. He will require weaning off norepinephrine prior to being transported safely for imaging. He denies any new symptoms today and remains hemodynamically stable aside from ongoing vasopressor requirement. REVIEW OF SYSTEMS CONSTITUTIONAL: Fever and chills Denies night sweats. No unintentional weight loss reported. NEUROLOGICAL: Complain generalized body weakness Denies headache, amaurosis fugax,sensory deficit, vertigo/spinning sensation, gait abnormalities, or tremors. ENT: No hearing loss, otalgia, otorrhea, rhinitis, rhinorrhea, hoarseness, or sore throat. CARDIOVASCULAR: Denies any exertional angina, dyspnea on exertion, orthopnea, paroxysmal nocturnal dyspnea, palpitations, life-threatening arrhythmias, claudication. PULMONARY: Denies any shortness of breath, cough, phlegm/sputum, hemoptysis, pleuritic chest pain. SLEEP: Denies morning headaches, daytime somnolence or napping. Denies difficulty falling asleep, staying asleep, waking from sleep. Denies knowledge of snoring. GASTROINTESTINAL: Denies any type of dysphagia to either liquids or solids. Denies nausea, vomiting, pyrosis, early satiety, abdominal pain, diarrhea, constipation, or changes in stool consistency or caliber. Denies coffee-ground emesis, hematemesis, hematochezia, or melanotic stools. GENITOURINARY: Denies frequency, urgency, nocturia, hematuria or incontinence (Storage/Irritative symptoms.) Low urinary stream, straining to void, urinary intermittency or hesitancy, splitting of the voiding stream, terminal dribbling. ENDOCRINOLOGIC: Denies polyuria, polydipsia, polyphagia or heat/cold intolerances. HEMATOLOGIC: Denies thrombophilia/previous clots, or coagulopathy/bleeding disorders. ONCOLOGIC: Denies personal history of malignancy. DERMATOLOGIC: Denies rashes or pruritus. PSYCHIATRIC: Denies any suicidal or homicidal ideation. Denies hallucinations. PHYSICAL EXAM GENERAL APPEARANCE: The patient is awake, alert, and oriented, in no acute cardiopulmonary distress. NEUROLOGICAL: Cranial nerves II-XII grossly intact. Motor is 5/5 in bilateral upper and lower extremities proximal to distal. No sensory deficits. HEENT: Face is symmetric. Pupils are equal and reactive. Extraocular movements are intact. NECK: Supple. No JVD. No thyromegaly. No submental, submandibular, pre- /postauricular, occipital or supraclavicular lymphadenopathy. CHEST: Normal chest expansion. No Telemetry. LUNGS: Absence of any rales, rhonchi or any wheezing. CARDIOVASCULAR: Regular. S1 and S2 normal. No appreciable rubs, murmurs or gallops. ABDOMEN: Soft, nontender, and nondistended. There is no rebound, voluntary guarding, or rigidity. : Deferred. No Mariano. EXTREMITIES: Non-edematous and not cyanotic. No clubbing. Good capillary re fill. SKIN: open wound to sacral area Vital Signs (last 8hr) Date Time Temp Pulse Resp B/P (MAP) Pulse Ox O2 Delivery O2 Flow Rate FiO2 01/28/25 06:15 69 99 01/28/25 06:08 77 13 105/65 (78) 95 01/28/25 06:00 78 10 99 01/28/25 05:52 60 15 124/54 (77) 99 01/28/25 05:45 60 15 99 01/28/25 05:37 60 15 105/52 (69) 99 01/28/25 05:30 72 98 01/28/25 05:23 58 5 152/69 (96) 98 LABS: Laboratory: Test 01/28/25 04:27 01/27/25 18:35 01/27/25 17:56 01/27/25 14:20 Range/Units White Blood Count 14.3 H 4.8-10.8 K/uL Red Blood Count 2.89 L 4.50-6.20 MIL/uL Hemoglobin 9.5 L 14.0-18.0 g/dL Hematocrit 26.7 L 42-54 % Mean Corpuscular Volume 92.4 79-99 fL Mean Corpuscular Hemoglobin 32.9 27.0-33.0 pg Mean Corpuscular Hemoglobin Concent 35.6 32.0-36.0 g/dL Red Cell Distribution Width 14.8 11.0-15.5 % Platelet Count 110 L 130-400 K/uL Mean Platelet Volume 8.9 7.5-10.5 fL Immature Granulocyte % (Auto) 0.4 0-1 % Neutrophils (%) (Auto) 76.9 40.0-77.0 % Lymphocytes (%) (Auto) 17.2 L 21.0-51.0 % Monocytes (%) (Auto) 5.1 3.0-13.0 % Eosinophils (%) (Auto) 0.3 0.0-8.0 % Basophils (%) (Auto) 0.1 0.0-5.0 % Neutrophils # (Auto) 11.0 H 1.8-7.7 K/uL Lymphocytes # (Auto) 2.5 1.0-4.8 K/uL Monocytes # (Auto) 0.7 0.1-1.0 K/uL Eosinophils # (Auto) 0.04 0.00-0.70 K/uL Basophils # (Auto) 0.02 0.00-0.20 K/uL Absolute Immature Granulocyte (auto 0.06 0-1 K/uL Nucleated Red Blood Cells 0.0 0.0-0.19 % Erythrocyte Sedimentation Rate 36 H 0-20 MM/HR Sodium Level 138 136-145 mmol/L Potassium Level 3.8 3.5-5.1 mmol/L Chloride Level 109 101-111 mmol/L Carbon Dioxide Level 24 21-32 mmol/L Blood Urea Nitrogen 20 H 7-18 mg/dL Creatinine 0.7 0.5-1.3 mg/dL Glomerular Filtration Rate Calc 97 >90 mL/min Random Glucose 107 H 70-105 mg/dL Lactic Acid Level 1.2 0.8-2.5 mmol/L Total Calcium 8.1 L 8.5-10.1 mg/dL Magnesium Level 1.90 1.80-2.40 mg/dL Total Bilirubin 1.3 H 0.2-1.0 mg/dL Aspartate Amino Transf (AST/SGOT) 99 H 10-37 U/L Alanine Aminotransferase (ALT/SGPT) 95 H 12-78 U/L Alkaline Phosphatase 290 H 50-136 U/L Total Protein 6.2 6.0-8.3 g/dL Albumin 1.6 L 3.5-5.0 g/dL Procalcitonin 16.94 H 0.05-0.5 ng/mL Urine Color YELLOW YELLOW Urine Appearance CLEAR CLEAR Urine pH 6.0 5.0-8.0 Urine Specific [place] 1.010 1.001-1.031 Urine Protein NEGATIVE NEGATIVE mg/dL Urine Glucose (UA) NEGATIVE NEGATIVE mg/dL Urine Ketones NEGATIVE NEGATIVE mg/dL Urine Occult Blood NEGATIVE NEGATIVE Urine Nitrate NEGATIVE NEGATIVE Urine Bilirubin SMALL H NEGATIVE mg/dL Urine Urobilinogen 2.0 H 0.2-1.0 mg/dL Urine Leukocyte Esterase SMALL H NEGATIVE Karon/uL Urine RBC 0-1 0-1 /HPF Urine WBC 6-10 H 0-1 /HPF Urine Squamous Epithelial Cells Few 0-2 /HPF Urine Bacteria Rare None Seen /HPF Direct Bilirubin 0.9 H 0.0-0.3 mg/dL White Cell Morphology Comment See comments Total Creatine Kinase 35 # 21-232 U/L Troponin I High Sensitivity 41 4-75 ng/L Current Medications Medications (Trade) Dose Ordered Sig/Panchito Route PRN Reason Start Time Stop Time Status Last Admin Dose Admin Acetaminophen (TYLenol 325MG TAB) 650 mg Q4H PRN PO MILD PAIN (1-3) 01/27/25 20:00 02/26/25 19:59 Acetaminophen (TYLenol 325MG TAB) 650 mg Q6H PRN PO TEMPERATURE GREATER THAN 101.5 01/27/25 20:00 02/26/25 19:59 Acetaminophen/ Hydrocodone Bitart (NORco 5/325MG) 1 tab Q6H PRN PO MODERATE PAIN (4-6) 01/27/25 16:00 02/01/25 12:00 01/27/25 16:38 1 TAB Cefepime HCl (MAXipime 2 gm vial) 2 gm Q12H IVPB 01/27/25 21:30 02/17/25 21:29 01/28/25 10:54 2 GM Famotidine (Pepcid 20mg Tab) 20 mg DAILY PO 01/28/25 09:00 02/27/25 08:59 01/28/25 11:03 20 MG Heparin Sodium (Porcine) (HEParin 5,000 UNIT VIAL) 5,000 unit Q12H SQ 01/28/25 09:00 02/27/25 08:59 01/28/25 11:03 5,000 UNIT Lactated Ringer's 1,000 ml @ 75 mls/hr [id number] IV 01/27/25 21:30 02/26/25 21:29 01/28/25 10:54 75 MLS/HR Magnesium Sulfate 50 ml @ 0 mls/hr PROTOCOL PRN IV OTHER [SEE ORDER COMMENTS] 01/27/25 20:00 02/26/25 19:59 Metronidazole/ Sodium Chloride (flaGYL) 500 mg Q8H IV 01/27/25 21:30 02/17/25 21:29 01/28/25 06:19 500 MG Morphine Sulfate (morPHINE 2MG SYG) 1 mg Q4H PRN IVP SEVERE PAIN (7-10) 01/27/25 15:30 01/27/25 15:47 DC Norepinephrine 250 ml @ 0 mls/hr PROTOCOL IV 01/27/25 17:00 02/26/25 16:59 01/27/25 17:50 26.25 MLS/HR Ondansetron HCl (zoFRAN 4MG INJ) 4 mg Q6H PRN IV NAUSEA/VOMITING 01/27/25 20:00 02/26/25 19:59 Pharmacy Profile Note (Pharmacy Communication) 1 each AD MISC 01/28/25 10:30 01/28/25 10:21 DC Piperacillin Sod/ Tazobactam Sod 50 ml @ 12.5 mls/hr Q8H IV 01/27/25 22:00 01/27/25 21:32 DC Potassium Chloride 100 ml @ 100 mls/hr AD PRN IV POTASSIUM PROTOCOL 01/27/25 20:00 02/26/25 19:59 Potassium Chloride (K-Dur/Klor-Con 20meq) 20 meq AD PRN PO POTASSIUM PROTOCOL 01/27/25 20:00 02/26/25 19:59 Potassium Chloride (KCl 10% Elixir 20meq/15ml) 20 meq AD PRN PO POTASSIUM PROTOCOL 01/27/25 20:00 02/26/25 19:59 Sodium Chloride 1,000 ml @ 100 mls/hr Q10H IV 01/27/25 20:00 01/28/25 15:59 01/27/25 20:04 100 MLS/HR Vancomycin HCl 250 ml @ 125 mls/hr ONCE IV 01/27/25 20:00 01/27/25 20:09 DC Vancomycin HCl 250 ml @ 125 mls/hr Q24H IV 01/28/25 20:00 02/07/25 19:59 Vancomycin HCl (Vancomycin Protocol) 1 each AD IV 01/27/25 20:30 02/10/25 20:29 Wound Care/ Dressing Products (Venelex Ointment) apply to coccyx BID TP 01/28/25 21:00 02/27/25 20:59 DIAGNOSTICS / RADIOLOGY: [facility] [id number] [place] [address] IMAGING REPORT Signed PATIENT: OSITO MONTEZ MR#: [id number] : 1950 SEX: M AGE: 74 LOCATION: 2BH ORDER 4 STATUS: ADM IN REPORT#: [id number] SERVICE 2 REASON: bacteremia with gram positive cocci r/o endocarditis ORDERING PHYSICIAN: LILIA CHIU MD PROCEDURE: ECHO FU LD - ECHO 2-D F/U-LTD APPROVED REPORT EXAM: Limited Two-dimensional echocardiogram with color Doppler. Study Details: Previous echocardiogram: 12/04/2024 INDICATION ICD: Bacteremia with gram positive cocci r/o endocarditis 2D Dimensions LVED Vol(simp.) 87.0 mL LVES Vol(simp.) 33.0 mL LVEF(%, simp.) 62 % Deformation Strain Apical 4 -17.8 % Apical 2 -17.8 % Apical 3 -15.8 % Global Strain -17.1 % Left Ventricle Left ventricular cavity size is normal. GLS -17.0% There is normal LV segmental wall motion. There is normal left ventricular wall thickness. LVEF is 60-65%. Indeterminate diastolic dysfunction. Right Ventricle The right ventricle is normal size. The right ventricular systolic function is normal. Atria The left atrium is moderately dilated. The right atrium is mildly dilated. Aortic Valve Aortic valve is trileaflet, thickened milldy calcified and opens well. No obvious vegetations noted with leaflet thickening and calcification noted. Toni recommended if clinically indicated Mitral Valve Mitral valve leaflets open well. Small anterior mitral valve tip vegetation noted vs myxomatous leaflet. Tricuspid Valve The tricuspid valve appears normal. There is no tricuspid valve vegetation. Pulmonic Valve The pulmonary valve appears normal. There is no pulmonic valve vegetaion. Pericardium No pericardial effusion. Other Information Quality : Limited/Follow-up Conclusion LVEF is 60-65%. GLS -17.0% There is normal LV segmental wall motion. Small anterior mitral valve tip vegetation noted vs myxomatous leaflet. No obvious vegetations noted with leaflet thickening and calcification noted. 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 * SOFA score of 3, lactic acid 3.8, bilirubin 1.4, creatinine 0.7, on norepinephrine 0.04 mcg/kg/min, platelet count of 122. * Lactic acid trend: 3.8> 2.8> 1.2, procalcitonin 16.94 (01/28/2025). * Currently on Flagyl 500 mg Q 8(day 1), cefepime2 g q.12 (day 1), vancomycin (day 0). * Continue pressor support with norepinephrine 0.04 mcg/kg per minute. * Critical care medicine, infectious diseases on board follow their recommendat ions. * Trend CRP to assess resolution of the infection. * MR spine pending, follow up. * Continue to monitor. Suspected infective endocarditis of the [place] valve: * Patient's blood cultures grew Gram-positive cocci in chains. * Echocardiography revealed small anterior mitral valve tip vegetation versus myxomatous leaflet. * Cardiology consulted, pending recommendations. * Patient meets2 major clinical criteria for infective endocarditis with echocardiographic findings and positive blood cultures. * Continue with the current antibiotic regimen. * Follow Cardiology recommendations. Stage II pressure ulcer on coccyx with granulation and minimal slow with mild periwound erythema and no drainage: * Patient has an open wound to the sacral area. * Wound care consulted, they recommended Venelex b.i.d. and p.r.n.. * Place the patient on a waffle mattress, keep the wounds clean and dry. * Frequent repositioning q.2 hours. * Wound culture collected, pending report. * Continue current IV antibiotic management. * Continue to serially assess the lesion. DVT prophylaxis with heparin 5000 b.i.d.. GI prophylaxis with Pepcid 20 mg p.o. daily ATTESTATION BY PHYSICIAN I have seen and examined the patient. I reviewed the documentation, medical decision making, and treatment plan as noted by the resident physician above. I agree with the findings and plan of care. DERICK JOHNSON MD, HEMA MD Jan 28, 2025 13:20
--- NOTE | 2025-01-28 13:23 | HMCSR ---
APPROVED REPORT EXAM: Limited Two-dimensional echocardiogram with color Doppler. Study Details: Previous echocardiogram: 12/04/2024 INDICATION ICD: Bacteremia with gram positive cocci r/o endocarditis 2D Dimensions LVED Vol(simp.) 87.0 mL LVES Vol(simp.) 33.0 mL LVEF(%, simp.) 62 % Deformation Strain Apical 4 -17.8 % Apical 2 -17.8 % Apical 3 -15.8 % Global Strain -17.1 % Left Ventricle Left ventricular cavity size is normal. GLS -17.0% There is normal LV segmental wall motion. There is normal left ventricular wall thickness. LVEF is 60-65%. Indeterminate diastolic dysfunction. Right Ventricle The right ventricle is normal size. The right ventricular systolic function is normal. Atria The left atrium is moderately dilated. The right atrium is mildly dilated. Aortic Valve Aortic valve is trileaflet, thickened milldy calcified and opens well. No obvious vegetations noted with leaflet thickening and calcification noted. Toni recommended if clinically indicated Mitral Valve Mitral valve leaflets open well. Small anterior mitral valve tip vegetation noted vs myxomatous leaflet. Tricuspid Valve The tricuspid valve appears normal. There is no tricuspid valve vegetation. Pulmonic Valve The pulmonary valve appears normal. There is no pulmonic valve vegetaion. Pericardium No pericardial effusion. Other Information Quality : Limited/Follow-up Conclusion LVEF is 60-65%. GLS -17.0% There is normal LV segmental wall motion. Small anterior mitral valve tip vegetation noted vs myxomatous leaflet. No obvious vegetations noted with leaflet thickening and calcification noted. Toni recommended if clinically indicated
--- NOTE | 2025-01-28 15:44 | CONS ---
CONSULTATION NOTE Date of Service: Jan 28, 2025 Reason for Consultation: [ pressure ulcer to coccyx ] Requesting Physician: [ Iris ] HISTORY OF PRESENT ILLNESS: Patient is evaluated at bedside in room 207 for initial wound care evaluation. The patient is a 74-year-old male past medical history of hypertension, diabetes, hyperlipidemia ,UTI due to Ecoli and obesity with past surgical history of right colectomy and polyps removal who was brought by EMS to the ED for complaints of fever and generalized body weakness.Patient was recently admitted in this facility for septic shock and was treated with ABT for E coli and was receiving IV ABT as outpatient managed by as per patient .Patient reports he was also recently admitted in [place] and was diagnosed with Diskitis and was discharged yesterday and came back here.Today he started having fever so he decided to come to the ED for evaluation.Upon ER arrival patient V/S was T99.5,HR 119,BP 70/42 and Sat 96% RA. Patient has an open wound to sacral area,and patient reports he has been having it since he was discharge home.Patient is also on Levophed drip.Patient denies,nausea,vomiting,chest pain,palpitation,cough and shortness of breath. Latest vital signs heart rate 67, blood pressure 90/50 saturation 99% on room air. Labs: WBC 13 with negative left shift of neutrophils 89, hemoglobin 10, hematocrit 29, platelet count 122. Sodium 132, chloride 100, BUN 34, lactic acid 3.8-2.8 troponin 41. Urinalysis significant for urine bilirubin small, urine urobilinogen two, small esterase, urine WBC 6-10. While in the ER patient received vancomycin 1 g IV, Zosyn 3.375 IV, Tylenol 1000 mg p.o. and fluid resuscitation of NS 30 mL/kilogram over 3 hours and morphine 1 mg IV. The patient was admitted for further medical management. REVIEW OF SYSTEMS CONSTITUTIONAL: Denies fever, chills, or fatigue. HEAD/FACE: No signs of trauma. EENT: Denies eye pain, blurred vision, double vision, or light sensitivity. RESPIRATORY: Denies shortness of breath, cough, wheezing CARDIOVASCULAR: Denies chest pain, palpitation, syncope GASTROINTESTINAL/ABDOMINAL: Denies abdominal pain, constipation, diarrhea, nausea or vomiting GENITOURINARY: Denies dysuria or hematuria. MUSCULOSKELETAL: Denies joint pain, tenderness, or trauma. INTEGUMENTARY: Denies rash or itchiness NEUROLOGICAL/PSYCH: Denies anxiety, depression, heat or cold intolerance. PAST MEDICAL HISTORY: [ hypertension, diabetes, hyperlipidemia ,UTI due to Ecoli and obesity ] PAST SURGICAL HISTORY: [ right colectomy and polyps removal PAST SOCIAL HISTORY: [ Patient lives with significant other. Patient denies alcohol tobacco and recreational drug use ] FAMILY HISTORY: [Mother and father - diabetes ] Coded Allergies: No Known Allergies (Unverified Allergy, Unknown, 12/04/24) PHYSICAL EXAM EYES: Anicteric. Pupils equal and reactive. HENT: No oral thrush seen, moist Oral mucosa NECK: Supple, no JVD or thyromegaly. LUNGS: Good air entry. No rales, no rhonchi. CARDIOVASCULAR: S1, S2 regular. No murmur heard. ABDOMEN: Soft, non tender, bowel sounds present, no organomegaly CENTRAL NERVOUS SYSTEM: Awake, alert, oriented x 3. No focal deficits. SKIN: Stage 2 pressure noted to coccyx with granulation and minimal slough with mild periwound erythema with no drainage noted. LYMPHATICS: No peripheral lymphadenopathy MUSCULOSKELETAL: No joint swelling, erythema or tenderness. EXTREMITIES: No cyanosis or clubbing BACK: No deformity GENITOURINARY: No dysuria or hematuria Vital Sign (Last 24 Hours) 01/28/25 01/28/25 01/28/25 04:00 06:08 06:15 Pulse 69 Resp 13 B/P (MAP) 105/65 (78) Pulse Ox 99 O2 Delivery Room Air* O2 Flow Rate 0 FiO2 21 Intake & Output (last 24hrs) 01/27/25 01/27/25 01/28/25 15:00 23:00 07:00 Intake Total 2532.8 ml 911.8 ml Output Total 200 ml 700 ml Balance 2332.8 ml 211.8 ml LABS: Laboratory: Test 01/28/25 04:27 01/27/25 18:35 01/27/25 17:56 01/27/25 14:20 Range/Units White Blood Count 14.3 H 4.8-10.8 K/uL Red Blood Count 2.89 L 4.50-6.20 MIL/uL Hemoglobin 9.5 L 14.0-18.0 g/dL Hematocrit 26.7 L 42-54 % Mean Corpuscular Volume 92.4 79-99 fL Mean Corpuscular Hemoglobin 32.9 27.0-33.0 pg Mean Corpuscular Hemoglobin Concent 35.6 32.0-36.0 g/dL Red Cell Distribution Width 14.8 11.0-15.5 % Platelet Count 110 L 130-400 K/uL Mean Platelet Volume 8.9 7.5-10.5 fL Immature Granulocyte % (Auto) 0.4 0-1 % Neutrophils (%) (Auto) 76.9 40.0-77.0 % Lymphocytes (%) (Auto) 17.2 L 21.0-51.0 % Monocytes (%) (Auto) 5.1 3.0-13.0 % Eosinophils (%) (Auto) 0.3 0.0-8.0 % Basophils (%) (Auto) 0.1 0.0-5.0 % Neutrophils # (Auto) 11.0 H 1.8-7.7 K/uL Lymphocytes # (Auto) 2.5 1.0-4.8 K/uL Monocytes # (Auto) 0.7 0.1-1.0 K/uL Eosinophils # (Auto) 0.04 0.00-0.70 K/uL Basophils # (Auto) 0.02 0.00-0.20 K/uL Absolute Immature Granulocyte (auto 0.06 0-1 K/uL Nucleated Red Blood Cells 0.0 0.0-0.19 % Erythrocyte Sedimentation Rate 36 H 0-20 MM/HR Sodium Level 138 136-145 mmol/L Potassium Level 3.8 3.5-5.1 mmol/L Chloride Level 109 101-111 mmol/L Carbon Dioxide Level 24 21-32 mmol/L Blood Urea Nitrogen 20 H 7-18 mg/dL Creatinine 0.7 0.5-1.3 mg/dL Glomerular Filtration Rate Calc 97 >90 mL/min Random Glucose 107 H 70-105 mg/dL Lactic Acid Level 1.2 0.8-2.5 mmol/L Total Calcium 8.1 L 8.5-10.1 mg/dL Magnesium Level 1.90 1.80-2.40 mg/dL Total Bilirubin 1.3 H 0.2-1.0 mg/dL Aspartate Amino Transf (AST/SGOT) 99 H 10-37 U/L Alanine Aminotransferase (ALT/SGPT) 95 H 12-78 U/L Alkaline Phosphatase 290 H 50-136 U/L Total Protein 6.2 6.0-8.3 g/dL Albumin 1.6 L 3.5-5.0 g/dL Procalcitonin 16.94 H 0.05-0.5 ng/mL Urine Color YELLOW YELLOW Urine Appearance CLEAR CLEAR Urine pH 6.0 5.0-8.0 Urine Specific [place] 1.010 1.001-1.031 Urine Protein NEGATIVE NEGATIVE mg/dL Urine Glucose (UA) NEGATIVE NEGATIVE mg/dL Urine Ketones NEGATIVE NEGATIVE mg/dL Urine Occult Blood NEGATIVE NEGATIVE Urine Nitrate NEGATIVE NEGATIVE Urine Bilirubin SMALL H NEGATIVE mg/dL Urine Urobilinogen 2.0 H 0.2-1.0 mg/dL Urine Leukocyte Esterase SMALL H NEGATIVE Karon/uL Urine RBC 0-1 0-1 /HPF Urine WBC 6-10 H 0-1 /HPF Urine Squamous Epithelial Cells Few 0-2 /HPF Urine Bacteria Rare None Seen /HPF Direct Bilirubin 0.9 H 0.0-0.3 mg/dL White Cell Morphology Comment See comments Total Creatine Kinase 35 # 21-232 U/L Troponin I High Sensitivity 41 4-75 ng/L DIAGNOSTICS / RADIOLOGY: [ ] PROBLEM LIST : Medical Problems: (1) Lactic acidosis ICD Codes: E87.20 - Acidosis, unspecified (2) Sepsis ICD Codes: A41.9 - Sepsis, unspecified organism (3) Septic shock ICD Codes: A41.9 - Sepsis, unspecified organism; R65.21 - Severe sepsis with septic shock (4) Pressure ulcer of sacral region, stage 2 ICD codes: L89.152 PLAN: Wound culture collected to coccyx wound Wound care to coccyx wound- apply Venelex BID and PRN Waffle mattress Keep wounds clean and dry Offloading/reposition q 2 hours Continue IV antibiotics per ID Comorbidities per primary care team Further Management per hospital course. Thank You for the consult and allowing us to participate in the care of this patient. ATTESTATION BY PHYSICIAN I have seen and examined the patient. I reviewed the documentation, medical decision making, and treatment plan as noted by the mid-level provider above. I agree with the findings and plan of care. SUSAN MARTELL MD, MICHELLE A [employer] Jan 28, 2025 15:44 SUSAN MARTELL MD Feb 13, 2025 13:39
--- NOTE | 2025-01-28 17:14 | NUR ---
PT CAN NOT PROCEED WITH MRI UNTIL PT IS STABLE ENOUGH TO STOP THE DRIP FOR THE DURATION OF THE PROCEDURE
[2025-01-28] MEDS: BALSAM PERU/CASTOR OIL 60 GM TUBE TP SCH (21:03)
--- NOTE | 2025-01-28 21:20 | CONS ---
INFECTIOUS DISEASE CONSULTATION DATE OF SERVICE: 01/28/2025. REQUESTING PHYSICIAN: Rossy Marley NP REASON FOR CONSULTATION: Gram positive bacteremia, sepsis. HISTORY OF PRESENT ILLNESS: A 74-year-old male with a history of hypertension and diabetes mellitus presented to the hospital with fever, general body weakness, and low blood pressure. The patient's symptoms started 1 day prior to presentation. The patient was admitted with septic shock. Blood culture on admission came back positive for gram-positive cocci in chains. The patient returned from [place] about 2 days ago. The patient was in [place] to be evaluated for chronic back pain. MRI was done, which showed lumbar spine diskitis and osteomyelitis. The patient claimed lumbar puncture was done, which I doubt. Probably IR biopsy was done. Blood culture drawn over there grew Enterococcus species. The patient was sent home on daptomycin. Unknown if 2D echocardiogram was done prior. Was evaluated by Neurosurgery while in [place] who advised antibiotic management. 2D echocardiogram has been ordered today and it is pending to be read. PAST MEDICAL HISTORY: * Hypertension. * Diabetes mellitus. * Dyslipidemia. * UTI. * Cholecystitis. * E. coli bacteremia and sepsis. PAST SURGICAL HISTORY: * Colonoscopy. * Right hemicolectomy. ALLERGIES: No known drug allergies. CURRENT MEDICATIONS: Reviewed. SOCIAL HISTORY: No alcohol or tobacco or drug use. FAMILY HISTORY: Positive for diabetes mellitus. REVIEW OF SYSTEMS: CONSTITUTIONAL: Positive for fever and chills. No weight loss. No night sweats. EYES: No eye pain. No photophobia or diplopia. HENT: No sore throat. No rhinorrhea or earache. NECK: No neck pain or neck swelling. RESPIRATORY: No cough. No hemoptysis or pleuritic pain. CARDIOVASCULAR: No chest pain. No palpitation or orthopnea. GASTROINTESTINAL: Denies nausea, vomiting, or abdominal pain. GENITOURINARY: No dysuria. No urinary frequency. CENTRAL NERVOUS SYSTEM: No headache, dyspnea, or slurred speech. PSYCHIATRY: No depression, no suicidal ideation. MUSCULOSKELETAL: No joint pain. No joint swelling. PHYSICAL EXAMINATION: GENERAL: Elderly male, awake. Not in distress. VITAL SIGNS: Temperature 97.9, pulse 69, respirations 13, BP 105/65. EYES: No icterus. Pupils equal and reactive. HENT: No oral thrush seen. Moist oral mucosa. NECK: Supple. No JVD or thyromegaly. LUNGS: Good air entry. No rales, no rhonchi. CARDIOVASCULAR: S1 and S2. Regular. No murmur heard. ABDOMEN: Soft, nontender. Bowel sounds are present. CENTRAL NERVOUS SYSTEM: Awake, alert, oriented x 3. No focal deficits. SKIN: No rashes. LYMPHATIC: No peripheral lymphadenopathy. BACK: No deformities. ____. MUSCULOSKELETAL: No joint swelling or tenderness. LABORATORY DATA: Alkaline phosphatase 290, AST 99, ALT 95, procalcitonin is 16.94, sodium 130, potassium 3.8, BUN 22, creatinine 0.7, WBC 10.2, hemoglobin 9.5, platelets 110. RADIOLOGY: Blood cultures growing Gram positive cocci in chains. 2D echocardiogram pending. ASSESSMENT: A 74-year-old male who presented with fever. * Enterococcus bacteremia and sepsis. * Lumbar spine diskectomy and osteomyelitis. * Stage 2 sacral coccygeal ulcer. * Diabetes mellitus. * Anemia. * ____, obtained. PLAN: * Follow up 2D echocardiogram results. * Continue critical care support. * Continue vasopressor. * Continue anti-diuretics. * Follow-up culture. * Monitor electrolytes. * Continue pain management. * Continue DVT prophylaxis. * Remove PICC line. * The patient may require ROBERT if the 2D echocardiogram is unremarkable. Thank you for allowing me to participate in the care of this patient. TID: [id number] RECEIPT: [id number] [facility] CENTERApolinar
[2025-01-28] MEDS: VANCOMYCIN 1.75 GM/250 ML BAG 250 ML IV SCH (21:32)
[2025-01-29] VITALS (17 sets, daily range): BP systolic 97–126; BP diastolic 44–66; PULSE 60–80; RESP 13–20; TEMP 97.6–98.6; O2SAT 94–99
[2025-01-29 03:46] LABS: ABG BASE EXCESS 0.5 mmol/L (-2.0-3.0); ABG HCO3 23.6 mmol/L (21.0-28.0); ABG OXYGEN SATURATION 96.5 % (94.0-98.0); ABG PCO2 34 mmHg (35-48); ABG PH 7.465 (7.350-7.450); PO2, ARTERIAL BG 80.1 mmHg (83.0-108.0); TEMPERATURE, CELSIUS BG 37.0 CELSIUS (35.5-37.0); VENT MODE, BG RA (ROOM AIR)
[2025-01-29 05:31] LABS: IMMATURE GRANULOCYTE ABSOLUTE 0.01 K/uL (0-1); NUCLEATED RED BLOOD CELLS 0.0 % (0.0-0.19); PLATELET COUNT (AUTO) 91 K/uL (130-400); RED BLOOD CELL COUNT(AUTO) 2.61 MIL/uL (4.50-6.20); RED CELL DISTRIBUTION WIDTH 14.7 % (11.0-15.5); WHITE BLOOD COUNT (AUTO) 4.9 K/uL (4.8-10.8)
[2025-01-29 05:45] LABS: INR 1.16 (0.85-1.15)
[2025-01-29 06:08] LABS: ASPARTATE AMINOTRANSFERASE 54.0 U/L (10-37); CREATININE 0.6 mg/dL (0.5-1.3); GLOMERULAR FILTR. RATE CALC 102.0 mL/min (>90); GLUCOSE,RANDOM 91.0 mg/dL (70-105); PHOSPHORUS 3.1 mg/dL (2.5-4.9); SODIUM SERUM 136.0 mmol/L (136-145); TOTAL PROTEIN, SERUM 5.9 g/dL (6.0-8.3); UREA NITROGEN, BLOOD 14.0 mg/dL (7-18)
[2025-01-29] MEDS: PoTASSium chloRIDE 20MEQ ER 20 MEQ ERTAB PO PRN (09:31)
--- NOTE | 2025-01-29 12:47 | PN ---
[facility] PROGRESS NOTE Date Patient Seen: Jan 29, 2025 Time of Visit: 12:41 Supervising Physician: JOSEPHINE AMEZCUA MD Primary Care Physician: [ Dr. Edgar Villela] Outpatient Specialists: [ ] Inpatient Consults: [[facility], Dr. Espinosa: ID] PROBLEM LIST: Acute sepsis with septic shock on admission Diskitis of the L4-L5 area on admission Gram-negative rods bacteremia Mitral valve endocarditis with positive vegetation 01/28/2025 2D echocardiogram Liver cirrhosis Hepatic transaminitis Atrial fibrillation Acute complicated cystitis with Enterococcus bacteria Prediabetes Primary hypertension Normocytic anemia INTERVAL HISTORY: Patient in bed. Awake and alert. On room air and following commands. Now off Levophed. Liver enzymes are trending down, white blood cell count is trending down Hemoglobin is a little bit lower however it might be diluted Chest x-ray shows mild pulmonary congestion with small effusions bilaterally without infiltrates 2D echocardiogram is positive for a mitral valve vegetation and obviously cardiology's recommended a ROBERT REVIEW OF SYSTEMS: 12 point ROS reviewed with patient. Pertinent positives mentioned above. Otherwise negative. PHYSICAL EXAM: GENERAL: alert, awake oriented x 3 HEENT: EOMI, Sclera icteric, moist mucosa NECK: Supple, no JVD, trachea midline LUNGS: Clear breath sounds bilaterally. No wheezes HEART: Regular rate, regular rhythm. Systolic ejection murmur 3/4 ABD: Abdomen soft, nontender. Bowel sounds present EXT: No clubbing cyanosis or edema; no tenderness on vertebrae SKIN: Jaundiced, stage II pressure injury on sacrum NEURO: Alert and oriented to person, follows commands Vital Signs (last 8hr) Date Time Temp Pulse Resp B/P (MAP) Pulse Ox O2 Delivery O2 Flow Rate FiO2 01/29/25 11:00 69 18 126/57 97 Room Air 01/29/25 10:00 80 20 107/49 98 Room Air 01/29/25 09:00 71 20 117/53 99 Room Air 01/29/25 08:00 98.1 73 18 107/51 98 Room Air 01/29/25 08:00 98 Room Air* 0 21 01/29/25 07:00 69 16 111/55 (73) 97 01/29/25 06:00 66 15 119/49 (72) 97 01/29/25 05:00 62 15 109/47 (67) 97 LABS: Hematology Labs: Test 01/29/25 05:06 01/28/25 04:27 01/27/25 14:20 Range/Units White Blood Count 4.9 4.8-10.8 K/uL Red Blood Count 2.61 L 4.50-6.20 MIL/uL Hemoglobin 8.3 L 14.0-18.0 g/dL Hematocrit 24.6 L 42-54 % Mean Corpuscular Volume 94.3 79-99 fL Mean Corpuscular Hemoglobin 31.8 27.0-33.0 pg Mean Corpuscular Hemoglobin Concent 33.7 32.0-36.0 g/dL Red Cell Distribution Width 14.7 11.0-15.5 % Platelet Count 91 L 130-400 K/uL Mean Platelet Volume 9.1 7.5-10.5 fL Immature Granulocyte % (Auto) 0.2 0-1 % Neutrophils (%) (Auto) 62.6 40.0-77.0 % Lymphocytes (%) (Auto) 27.8 21.0-51.0 % Monocytes (%) (Auto) 7.6 3.0-13.0 % Eosinophils (%) (Auto) 1.4 0.0-8.0 % Basophils (%) (Auto) 0.4 0.0-5.0 % Neutrophils # (Auto) 3.0 1.8-7.7 K/uL Lymphocytes # (Auto) 1.4 1.0-4.8 K/uL Monocytes # (Auto) 0.4 0.1-1.0 K/uL Eosinophils # (Auto) 0.07 0.00-0.70 K/uL Basophils # (Auto) 0.02 0.00-0.20 K/uL Absolute Immature Granulocyte (auto 0.01 0-1 K/uL Nucleated Red Blood Cells 0.0 0.0-0.19 % Erythrocyte Sedimentation Rate 36 H 0-20 MM/HR White Cell Morphology Comment See comments Chemistry Labs: Test 01/29/25 05:06 01/28/25 04:27 01/27/25 17:56 01/27/25 14:20 Range/Units Sodium Level 136 136-145 mmol/L Potassium Level 3.5 3.5-5.1 mmol/L Chloride Level 106 101-111 mmol/L Carbon Dioxide Level 24 21-32 mmol/L Blood Urea Nitrogen 14 7-18 mg/dL Creatinine 0.6 0.5-1.3 mg/dL Glomerular Filtration Rate Calc 102 >90 mL/min Random Glucose 91 70-105 mg/dL Lactic Acid Level 1.1 0.8-2.5 mmol/L Total Calcium 8.2 L 8.5-10.1 mg/dL Phosphorus Level 3.1 2.5-4.9 mg/dL Magnesium Level 1.90 1.80-2.40 mg/dL Total Bilirubin 0.8 0.2-1.0 mg/dL Aspartate Amino Transf (AST/SGOT) 54 H 10-37 U/L Alanine Aminotransferase (ALT/SGPT) 66 12-78 U/L Alkaline Phosphatase 231 H 50-136 U/L Ammonia 40 H 11-32 umol/L C-Reactive Protein, Quantitative 60.90 H 0.5-3.0 mg/L Total Protein 5.9 L 6.0-8.3 g/dL Albumin 1.5 L 3.5-5.0 g/dL Procalcitonin 16.94 H 0.05-0.5 ng/mL Direct Bilirubin 0.9 H 0.0-0.3 mg/dL Total Creatine Kinase 35 # 21-232 U/L Troponin I High Sensitivity 41 4-75 ng/L Coagulation Labs: Test 01/29/25 05:06 Range/Units Prothrombin Time 12.1 H 9.6-11.6 SEC Prothromb Time International Ratio 1.16 H 0.85-1.15 Activated Partial Thromboplast Time 33.0 26.3-35.5 SEC DIAGNOSTICS / RADIOLOGY RESULTS: Mitral valve leaflet vegetation on 2D echocardiogram PLAN Get transesophageal echocardiogram MRI of the lumbar spine is nonurgent Preliminary blood cultures showing Gram-negative rods, continue antibiotics as indicated Consult cardiology Downgrade to PCCU Telemetry monitoring NEURO: Minimize central acting medications as possible. Fall Precautions. Well lighted room through the day and minimize interruptions through the night to prevent acute delirium. PULMONARY: Supplemental 02 as needed Titrate Fio2 to keep Spo2 > or = 90% DuoNebs and CPT as needed IS hourly while awake for pulmonary hygiene Out of bed to chair as tolerated VAP Bundle Vent/BIPAP Settings: [ ] Driving pressure: [ ] P Plat: [ ] Static C: [ ] Static R: [ ] P/F Ratio: [ ] CARDIOVASCULAR: Follow hemodynamics. Titrate vasopressor to keep MAP >65 or systolic blood pressure >95mmHg DRIPS: [Levophed ] LINES: [Left arm PICC ] GI & NUTRITION: Continue nutritional support Aspirations precautions Prokinetic agents and laxatives as needed KIDNEYS & ELECTROLYTES: Strict monitoring of intake and output Daily weights Avoid nephrotoxic agents Monitor electrolytes and replace as needed Goal urine output of 30mL/hr or 0.5mL/kg/hr Urine output: [ ] Fluid Balance: [ ] ENDOCRINE: Maintain blood glucose between 100-180 at all times. Insulin sliding scale for blood glucose management INFECTIOUS DISEASE: Trend temperature. Galvan-culture if febrile. Micro: [Gram-positive cocci in the blood stream ] Antibiotics: [IV Vancomycin: 01/26/25- IV Cefepime: 01/26/25- IV Flagyl: 01/26/25] HEMATOLOGY & COAGULATION: Monitor H&H. Keep Hgb > 7 Transfuse 1 unit of PRBC for Hgb < 7 Transfuse 1 pack of platelets of platelets < 20, 000 Watch for any signs and symptoms of bleeding SKIN: Pressure ulcer prevention per facility protocol Rehab: PT/OT Prophylaxis: GI: [Pepcid] DVT: [Heparin ] Code Status: Full Resuscitation Disposition: [PCCU ] Other: Total patient care time: 35 minutes I personally scribed for JOSEPHINE AMEZCUA MD ([email or web address]) on 01/29/25 at 12:47. Electronically submitted by Heriberto Flood ([email or web address]). JOSEPHINE AMEZCUA MD Jan 29, 2025 12:47
--- NOTE | 2025-01-29 13:59 | PN ---
INFECTIOUS DISEASE FOLLOWUP NOTE SUBJECTIVE: The patient is seen and examined at bedside. The patient has no fever or chills. When in ICU, he was on vasopressors. 2D echocardiogram showed mitral valve vegetation. No rashes or itchiness. Tolerated antibiotics. No shortness of breath, no palpitations, no orthopnea. No dysuria or hematuria. . PHYSICAL EXAMINATION: VITAL SIGNS: Temperature 97.4. EYES: No icterus. Pupils are equal and reactive. HENT: No oral thrush seen. Moist oral mucosa. NECK: Supple. No JVD or thyromegaly. LUNGS: Good air entry. No rales, no rhonchi. CARDIOVASCULAR: S1 and S2, regular. No murmur heard. ABDOMEN: Full, soft, nontender. Bowel sounds present. CENTRAL NERVOUS SYSTEM: Awake, alert, and oriented x3. No focal deficits. SKIN: No rashes. No itchiness. LYMPHATIC: No peripheral lymphadenopathy. BACK: No deformity. Sacrococcygeal ulcer. HEMATOLOGIC: No bleeding tendency. MUSCULOSKELETAL: No joint swelling, erythema, or tenderness. ASSESSMENT: A 74-year-old male with multiple problems which include, * bacteremia sepsis. * Mitral valve endocarditis. * osteomyelitis. * Sacrococcygeal ulcer. * Diabetes mellitus. * Anemia. PLAN: * Continue wound care. * Continue pain management. * Continue GI prophylaxis. * Continue antibiotics. * Continue . * Follow up culture results. * The patient will be followed up closely. TID: [id number] RECEIPT: [id number]
--- NOTE | 2025-01-29 14:59 | PN ---
[facility] PROGRESS NOTE Date of Service: Jan 29, 2025 Time of Service: 14:59 SUBJECTIVE: This is a 74-year-old male past medical history of hypertension, diabetes, hyperlipidemia ,UTI due to Ecoli and obesity with past surgical history of right colectomy and polyps removal who was brought by EMS to the ED for complaints of fever and generalized body weakness.Patient was recently admitted in this facility for septic shock and was treated with ABT for E coli and was receiving IV ABT as outpatient managed by as per patient .Patient reports he was also recently admitted in [place] and was diagnosed with Diskitis and was discharged yesterday and came back here.Today he started having fever so he decided to come to the ED for evaluation.Upon ER arrival patient V/S was T99.5,HR 119,BP 70/42 and Sat 96% RA. Seen and examined patient in the ER awake,alert and coherent,states he feels much better now than when he came in he said.On further evaluation ,patient has an open wound to sacral area,and patient reports he has been having it since he was discharge home.Patient is also on Levophed drip.Patient denies,nausea,vomiting,chest pain,palpitation,cough and shortness of breath. Latest vital signs heart rate 67, blood pressure 90/50 saturation 99% on room air. Labs: WBC 13 with negative left shift of neutrophils 89, hemoglobin 10, hematocrit 29, platelet count 122. Sodium 132, chloride 100, BUN 34, lactic acid 3.8-2.8 troponin 41. Urinalysis significant for urine bilirubin small, urine urobilinogen two, small esterase, urine WBC 6-10. While in the ER patient received vancomycin 1 g IV, Zosyn 3.375 IV, Tylenol 1000 mg p.o. and fluid r esuscitation of NS 30 mL/kilogram over 3 hours and morphine 1 mg IV. We will admit patient for further medical management. 01/28: Patient was seen and evaluated at bedside in room 207. He was awake, alert, and oriented 3, sitting comfortably in his chair during the encounter. He denies dizziness, generalized weakness, chest pain, shortness of breath, n ausea, vomiting, or other acute complaints today. He states he is relieved that his blood pressure has been improving. He remains on norepinephrine at 0.04 mcg/kg/hr. A 2D echocardiogram obtained today revealed suspicious vegetations on the mitral valve; cardiology has been consulted and evaluation is pending. Infectious Diseases has also evaluated the patient and recommended continuing vancomycin, ceftriaxone, and metronidazole (Flagyl). Blood cultures have grown gram-positive cocci in chains; final organism identification and sensitivities are pending. The patient is also pending MRI, but current pressor support is not MRI-compatible. He will require weaning off norepinephrine prior to being transported safely for imaging. He denies any new symptoms today and remains hemodynamically stable aside from ongoing vasopressor requirement. 01/29: Patient was seen and evaluated at bedside in room 207. He was awake, alert, and oriented 3. He reports feeling much better today and denies any active complaints, including chest pain, shortness of breath, dizziness, nausea, or abdominal discomfort. He is now off vasopressors and maintaining stable blood pressure around 110/70, and will be downgraded to PCCU today. Infectious Diseases has recommended a transesophageal echocardiogram ([facility]) to further evaluate for infective endocarditis; this is currently pending. Cardiology has been consulted for management of suspected endocarditis, and their evaluation is pending as well. He remains on vancomycin, and ceftriaxone was discontinued today. Identification and sensitivities of the bacteremia are still pending. Patient has no additional concerns at this time, and all questions were addressed. REVIEW OF SYSTEMS CONSTITUTIONAL: Fever and chills Denies night sweats. No unintentional weight loss reported. NEUROLOGICAL: Complain generalized body weakness Denies headache, amaurosis fugax,sensory deficit, vertigo/spinning sensation, gait abnormalities, or tremors. ENT: No hearing loss, otalgia, otorrhea, rhinitis, rhinorrhea, hoarseness, or sore throat. CARDIOVASCULAR: Denies any exertional angina, dyspnea on exertion, orthopnea, paroxysmal nocturnal dyspnea, palpitations, life-threatening arrhythmias, claudication. PULMONARY: Denies any shortness of breath, cough, phlegm/sputum, hemoptysis, pleuritic chest pain. SLEEP: Denies morning headaches, daytime somnolence or napping. Denies difficu lty falling asleep, staying asleep, waking from sleep. Denies knowledge of snoring. GASTROINTESTINAL: Denies any type of dysphagia to either liquids or solids. Denies nausea, vomiting, pyrosis, early satiety, abdominal pain, diarrhea, constipation, or changes in stool consistency or caliber. Denies coffee-ground emesis, hematemesis, hematochezia, or melanotic stools. GENITOURINARY: Denies frequency, urgency, nocturia, hematuria or incontinence (Storage/Irritative symptoms.) Low urinary stream, straining to void, urinary intermittency or hesitancy, splitting of the voiding stream, terminal dribbling. ENDOCRINOLOGIC: Denies polyuria, polydipsia, polyphagia or heat/cold intol erances. HEMATOLOGIC: Denies thrombophilia/previous clots, or coagulopathy/bleeding disorders. ONCOLOGIC: Denies personal history of malignancy. DERMATOLOGIC: Denies rashes or pruritus. PSYCHIATRIC: Denies any suicidal or homicidal ideation. Denies hallucinations. PHYSICAL EXAM GENERAL APPEARANCE: The patient is awake, alert, and oriented, in no acute cardiopulmonary distress. NEUROLOGICAL: Cranial nerves II-XII grossly intact. Motor is 5/5 in bilateral upper and lower extremities proximal to distal. No sensory deficits. HEENT: Face is symmetric. Pupils are equal and reactive. Extraocular movements are intact. NECK: Supple. No JVD. No thyromegaly. No submental, submandibular, pre- /postauricular, occipital or supraclavicular lymphadenopathy. CHEST: Normal chest expansion. No Telemetry. LUNGS: Absence of any rales, rhonchi or any wheezing. CARDIOVASCULAR: Regular. S1 and S2 normal. No appreciable rubs, murmurs or gallops. ABDOMEN: Soft, nontender, and nondistended. There is no rebound, voluntary guarding, or rigidity. : Deferred. No Mariano. EXTREMITIES: Non-edematous and not cyanotic. No clubbing. Good capillary refill. SKIN: open wound to sacral area Vital Signs (last 8hr) Date Time Temp Pulse Resp B/P (MAP) Pulse Ox O2 Delivery O2 Flow Rate FiO2 01/29/25 12:00 99 Room Air* 0 21 01/29/25 12:00 97.9 73 18 115/48 99 Room Air 01/29/25 11:00 69 18 126/57 97 Room Air 01/29/25 10:00 80 20 107/49 98 Room Air 01/29/25 09:00 71 20 117/53 99 Room Air 01/29/25 08:00 98.1 73 18 107/51 98 Room Air 01/29/25 08:00 98 Room Air* 0 21 01/29/25 07:00 69 16 111/55 (73 97 LABS: Laboratory: Test 01/29/25 05:06 01/29/25 03:44 01/28/25 04:27 01/27/25 18:35 Range/Units White Blood Count 4.9 4.8-10.8 K/uL Red Blood Count 2.61 L 4.50-6.20 MIL/uL Hemoglobin 8.3 L 14.0-18.0 g/dL Hematocrit 24.6 L 42-54 % Mean Corpuscular Volume 94.3 79-99 fL Mean Corpuscular Hemoglobin 31.8 27.0-33.0 pg Mean Corpuscular Hemoglobin Concent 33.7 32.0-36.0 g/dL Red Cell Distribution Width 14.7 11.0-15.5 % Platelet Count 91 L 130-400 K/uL Mean Platelet Volume 9.1 7.5-10.5 fL Immature Granulocyte % (Auto) 0.2 0-1 % Neutrophils (%) (Auto) 62.6 40.0-77.0 % Lymphocytes (%) (Auto) 27.8 21.0-51.0 % Monocytes (%) (Auto) 7.6 3.0-13.0 % Eosinophils (%) (Auto) 1.4 0.0-8.0 % Basophils (%) (Auto) 0.4 0.0-5.0 % Neutrophils # (Auto) 3.0 1.8-7.7 K/uL Lymphocytes # (Auto) 1.4 1.0-4.8 K/uL Monocytes # (Auto) 0.4 0.1-1.0 K/uL Eosinophils # (Auto) 0.07 0.00-0.70 K/uL Basophils # (Auto) 0.02 0.00-0.20 K/uL Absolute Immature Granulocyte (auto 0.01 0-1 K/uL Nucleated Red Blood Cells 0.0 0.0-0.19 % Prothrombin Time 12.1 H 9.6-11.6 SEC Prothromb Time International Ratio 1.16 H 0.85-1.15 Activated Partial Thromboplast Time 33.0 26.3-35.5 SEC Sodium Level 136 136-145 mmol/L Potassium Level 3.5 3.5-5.1 mmol/L Chloride Level 106 101-111 mmol/L Carbon Dioxide Level 24 21-32 mmol/L Blood Urea Nitrogen 14 7-18 mg/dL Creatinine 0.6 0.5-1.3 mg/dL Glomerular Filtration Rate Calc 102 >90 mL/min Random Glucose 91 70-105 mg/dL Lactic Acid Level 1.1 0.8-2.5 mmol/L Total Calcium 8.2 L 8.5-10.1 mg/dL Phosphorus Level 3.1 2.5-4.9 mg/dL Magnesium Level 1.90 1.80-2.40 mg/dL Total Bilirubin 0.8 0.2-1.0 mg/dL Aspartate Amino Transf (AST/SGOT) 54 H 10-37 U/L Alanine Aminotransferase (ALT/SGPT) 66 12-78 U/L Alkaline Phosphatase 231 H 50-136 U/L Ammonia 40 H 11-32 umol/L C-Reactive Protein, Quantitative 60.90 H 0.5-3.0 mg/L Total Protein 5.9 L 6.0-8.3 g/dL Albumin 1.5 L 3.5-5.0 g/dL Blood Gas Specimen Type Arterial Arterial Blood pH 7.465 H 7.350-7.450 Arterial Blood Partial Pressure CO2 34 L 35-48 mmHg Arterial Blood Partial Pressure O2 80.1 L 83.0-108.0 mmHg Arterial Blood HCO3 23.6 21.0-28.0 mmol/L Arterial Blood Oxygen Saturation 96.5 94.0-98.0 % Arterial Blood Base Excess 0.5 -2.0-3.0 mmol/L Blood Gas Temperature 37.0 35.5-37.0 CELSIUS Blood Gas Vent Mode RA ROOM AIR FiO2 21.0 % Blood Gas Specimen Comment RB,RNMARISSA Erythrocyte Sedimentation Rate 36 H 0-20 MM/HR Procalcitonin 16.94 H 0.05-0.5 ng/mL Urine Color YELLOW YELLOW Urine Appearance CLEAR CLEAR Urine pH 6.0 5.0-8.0 Urine Specific Harper 1.010 1.001-1.031 Urine Protein NEGATIVE NEGATIVE mg/dL Urine Glucose (UA) NEGATIVE NEGATIVE mg/dL Urine Ketones NEGATIVE NEGATIVE mg/dL Urine Occult Blood NEGATIVE NEGATIVE Urine Nitrate NEGATIVE NEGATIVE Urine Bilirubin SMALL H NEGATIVE mg/dL Urine Urobilinogen 2.0 H 0.2-1.0 mg/dL Urine Leukocyte Esterase SMALL H NEGATIVE Karon/uL Urine RBC 0-1 0-1 /HPF Urine WBC 6-10 H 0-1 /HPF Urine Squamous Epithelial Cells Few 0-2 /HPF Urine Bacteria Rare None Seen /HPF Test 01/27/25 17:56 Range/Units Direct Bilirubin 0.9 H 0.0-0.3 mg/dL Current Medications Medications (Trade) Dose Ordered Sig/Panchito Route PRN Reason Start Time Stop Time Status Last Admin Dose Admin Acetaminophen (TYLenol 325MG TAB) 650 mg Q4H PRN PO MILD PAIN (1-3) 01/27/25 20:00 02/26/25 19:59 Acetaminophen (TYLenol 325MG TAB) 650 mg Q6H PRN PO TEMPERATURE GREATER THAN 101.5 01/27/25 20:00 02/26/25 19:59 Acetaminophen/ Hydrocodone Bitart (NORco 5/325MG) 1 tab Q6H PRN PO MODERATE PAIN (4-6) 01/27/25 16:00 02/01/25 12:00 01/28/25 17:34 1 TAB Cefepime HCl (MAXipime 2 gm vial) 2 gm Q12H IVPB 01/27/25 21:30 02/17/25 21:29 01/29/25 09:31 2 GM Famotidine (Pepcid 20mg Tab) 20 mg DAILY PO 01/28/25 09:00 02/27/25 08:59 01/29/25 09:31 20 MG Heparin Sodium (Porcine) (HEParin 5,000 UNIT VIAL) 5,000 unit Q12H SQ 01/28/25 09:00 02/27/25 08:59 01/28/25 21:12 5,000 UNIT Lactated Ringer's 1,000 ml @ 75 mls/hr [id number] IV 01/27/25 21:30 02/26/25 21:29 01/29/25 09:31 75 MLS/HR Magnesium Sulfate 50 ml @ 0 mls/hr PROTOCOL PRN IV OTHER [SEE ORDER COMMENTS] 01/27/25 20:00 02/26/25 19:59 Metronidazole/ Sodium Chloride (flaGYL) 500 mg Q8H IV 01/27/25 21:30 02/17/25 21:29 01/29/25 13:24 500 MG Morphine Sulfate (morPHINE 2MG SYG) 1 mg Q4H PRN IVP SEVERE PAIN (7-10) 01/27/25 15:30 01/27/25 15:47 DC Norepinephrine 250 ml @ 0 mls/hr PROTOCOL IV 01/27/25 17:00 01/29/25 14:46 DC 01/27/25 17:50 26.25 MLS/HR Ondansetron HCl (zoFRAN 4MG INJ) 4 mg Q6H PRN IV NAUSEA/VOMITING 01/27/25 20:00 02/26/25 19:59 Pharmacy Profile Note (Pharmacy Communication) 1 each AD MISC 01/28/25 10:30 01/28/25 10:21 DC Piperacillin Sod/ Tazobactam Sod 50 ml @ 12.5 mls/hr Q8H IV 01/27/25 22:00 01/27/25 21:32 DC Potassium Chloride 100 ml @ 100 mls/hr AD PRN IV POTASSIUM PROTOCOL 01/27/25 20:00 02/26/25 19:59 Potassium Chloride (K-Dur/Klor-Con 20meq) 20 meq AD PRN PO POTASSIUM PROTOCOL 01/27/25 20:00 02/26/25 19:59 01/29/25 09:31 20 MEQ Potassium Chloride (KCl 10% Elixir 20meq/15ml) 20 meq AD PRN PO POTASSIUM PROTOCOL 01/27/25 20:00 02/26/25 19:59 Sodium Chloride 1,000 ml @ 100 mls/hr Q10H IV 01/27/25 20:00 01/28/25 15:59 DC 01/27/25 20:04 100 MLS/HR Vancomycin HCl 250 ml @ 125 mls/hr ONCE IV 01/27/25 20:00 01/27/25 20:09 DC Vancomycin HCl 250 ml @ 125 mls/hr Q24H IV 01/28/25 20:00 02/07/25 19:59 01/28/25 21:32 125 MLS/HR Vancomycin HCl (Vancomycin Protocol) 1 each AD IV 01/27/25 20:30 02/10/25 20:29 Wound Care/ Dressing Products (Venelex Ointment) apply to coccyx BID TP 01/28/25 21:00 02/27/25 20:59 01/29/25 09:32 1 GM DIAGNOSTICS / RADIOLOGY: [ ] ASSESSMENT: Septic shock with recent diskitis POA Stage 2 pressure ulcer on coccyx POA Acute kidney injury POA 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 * SOFA score of 3 on 01/28, lactic acid 3.8, bilirubin 1.4, creatinine 0.7, on norepinephrine 0.04 mcg/kg/min, platelet count of 122. * SOFA score today at 3. (Platelets 90K, Bilirubin 0.8, PaO2 80, Off of Pressors) * Lactic acid trend: 3.8> 2.8> 1.2>1.1, procalcitonin 16.94 (01/28/2025). * Currently on Flagyl 500 mg Q 8(day 2), cefepime2 g q.12 (day 2), vancomycin (day 1). * Off of pressors today, transfer to PCCU. * Critical care medicine, infectious diseases on board follow their recommendations. * Trend CRP to assess resolution of the infection. * MR spine pending, follow up. * Continue to monitor. 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 * Echocardiography revealed small anterior mitral valve tip vegetation versus myxomatous leaflet, Follow up with [facility]. * Cardiology consulted, pending recommendations. * Patient meets2 major clinical criteria for infective endocarditis with echocardiographic findings and positive blood cultures. * Continue with the current antibiotic regimen. * Follow Cardiology recommendations. Stage II pressure ulcer on coccyx with granulation and minimal slough with mild periwound erythema and no drainage: * Patient has an open wound to the sacral area. * Wound care consulted, they recommended Venelex b.i.d. and p.r.n.. * Place the patient on a waffle mattress, keep the wounds clean and dry. * Frequent repositioning q.2 hours. * Wound culture collected, pending report. * Continue current IV antibiotic management. * Continue to serially assess the lesion. DVT prophylaxis with heparin 5000 b.i.d.. GI prophylaxis with Pepcid 20 mg p.o. daily ATTESTATION BY PHYSICIAN I have seen and examined the patient. I reviewed the documentation, medical decision making, and treatment plan as noted by the resident physician above. I agree with the findings and plan of care. DERICK JOHNSON MD, HEMA MD Jan 29, 2025 14:59
--- NOTE | 2025-01-29 20:29 | HMCIMG ---
EXAM: CR Chest, 1 View. CLINICAL HISTORY: CHF COMPARISON: 12/04/2024 FINDINGS: LUNGS: There is no mass, infiltrate, or acute pulmonary abnormality. PLEURAL SPACES: No evidence of pleural effusion or pneumothorax. The right CP angle is partially excluded from the [id number]. MEDIASTINUM: Cardiac size and mediastinal contours within normal limits. BONES: No aggressive appearing osseous lesion seen. IMPRESSION: No acute cardiopulmonary findings. /[place]
[2025-01-29] MEDS ORDERED: COMPOUND IV REFRIGERATED 1 EACH IVSOLN MISC PRN (21:30)
--- NOTE | 2025-01-29 22:31 | HMCIMG ---
ULTRASOUND OF THE ABDOMEN Clinical Details: Elevated liver function tests. Examination performed for further evaluation and follow-up. Technique: Ultrasound of the abdomen was performed using grayscale and color Doppler evaluation. Comparison: Prior MRCP dated 04 December 2024, which demonstrated cholelithiasis without cholecystitis and no biliary obstruction, liver cirrhosis with mild hepatic steatosis, mild splenomegaly, and a 0.6 cm left renal cortical cyst.Findings: Liver: The liver measures 14.2 cm and demonstrates coarse echotexture, compatible with chronic parenchymal liver disease. No focal hepatic lesion is seen. The portal vein is patent and demonstrates hepatopetal flow with a peak systolic velocity of 22 cm/sec. Gallbladder and Biliary System: Numerous calculi are present within the gallbladder lumen. Sonographic Bee???s sign is negative. The gallbladder wall measures 2 mm. The common bile duct measures 3 mm in diameter. No intrahepatic biliary dilatation is observed. Pancreas: The head and body of the pancreas appear unremarkable. The pancreatic tail is only partially visualized due to overlying bowel gas. Kidneys: The right kidney measures 10.3 ??? 5.7 ??? 5.3 cm and the left kidney measures 10.6 ??? 5.7 ??? 5.9 cm. Renal cortical echogenicity and corticomedullary differentiation are preserved. The previously described 0.6 cm left renal cortical cyst is not well visualized on the current exam. Spleen: The spleen is enlarged, measuring 16.4 cm. Vessels: The inferior vena cava is patent. The proximal abdominal aorta is obscured by bowel gas. The mid aorta measures 1.6 cm and the distal aorta measures 1.5 cm in diameter.Impression: * Coarse hepatic echotexture, consistent with chronic liver parenchymal disease. * Cholelithiasis without sonographic evidence of acute cholecystitis. * Normal common bile duct caliber with no evidence of biliary obstruction. No choledocholithiasis. * Splenomegaly measuring 16.4 cm. * In comparison with the prior MRCP dated december 04, 2024, overall stable appearance. /[place]
[2025-01-30] VITALS (9 sets, daily range): BP systolic 99–136; BP diastolic 57–75; PULSE 65–85; RESP 16–18; TEMP 97.8–99; O2SAT 99
[2025-01-30 04:05] LABS: NUCLEATED RED BLOOD CELLS 0.0 % (0.0-0.19); PLATELET COUNT (AUTO) 96.0 K/uL (130-400); RED BLOOD CELL COUNT(AUTO) 2.86 MIL/uL (4.50-6.20); RED CELL DISTRIBUTION WIDTH 14.7 % (11.0-15.5); WHITE BLOOD COUNT (AUTO) 5.0 K/uL (4.8-10.8)
[2025-01-30 04:23] LABS: CREATININE 0.7 mg/dL (0.5-1.3); GLOMERULAR FILTR. RATE CALC 97.0 mL/min (>90); GLUCOSE,RANDOM 90.0 mg/dL (70-105); PHOSPHORUS 3.4 mg/dL (2.5-4.9); SODIUM SERUM 137.0 mmol/L (136-145); UREA NITROGEN, BLOOD 11.0 mg/dL (7-18)
--- NOTE | 2025-01-30 12:42 | NUR ---
CM note List of skilled facilities provided to patient pending patient choice. CM following.
--- NOTE | 2025-01-30 12:54 | CONS ---
[facility] CARDIOLOGY CONSULTATION NOTE Date Patient Seen: Jan 30, 2025 Time of Visit: 12:46 Reason for Consultation: [Endocarditis ] History of Present Illness: [ This is a 74-year-old male past medical history of hypertension, diabetes, hyperlipidemia, UTI due to Ecoli and obesity with past surgical history of right colectomy and polyps removal who was brought by EMS to the ED for complaints of fever and generalized body weakness. Patient was recently admitted in this facility for septic shock and was treated with antibiotics for E coli. Patient reports he was also recently admitted to hospital in [place] and was diagnos ed with Diskitis and was discharged day before arrival here. On the day of arrival, started having fever so he decided to come to the ED for evaluation. On further evaluation, patient has an open wound to sacral area,and patient reports he has been having it since he was discharge home. Labs: WBC 13 with negative left shift of neutrophils 89, hemoglobin 10, hematocrit 29, platelet count 122. Sodium 132, chloride 100, BUN 34, lactic acid 3.8-2.8 troponin 41. Urinalysis significant for urine bilirubin small, urine urobilinogen two, small esterase, urine WBC 6-10. Blood cultures positive E coli. 2d Echo with possible mitral valve vegetation. Past Medical History: [ ] Past Surgical History: [ ] Family History: [ ] Social History: [ ] Habits: [Never] smoker. [Denies] alcohol consumption. [Denies] illicit drug use Home Meds: [ ] Current Meds: [ ] Review of Systems: CONST: [No fever, fatigue, or weight changes.] EYES: [No recent vision problems.] ENT: [No congestion, ear pain, or sore throat.] C/V: [No chest pain, palpitations, or edema.] RESP: [No cough, congestion, wheezing or shortness of breath.] GI: [No abdominal pain, nausea, vomiting, constipation, or diarrhea.] : [No incontinence or dysuria.] SKIN: [No rash.] NEURO: [No headache, focal numbness or weakness, dizziness, or seizures.] PSYCH: [No depression or anxiety.] HEME: [No abnormal bruising or bleeding.] LYMPH: [No swollen glands.] Physical Examination: GENERAL: [No acute distress.] HEAD: [Normal with no signs of head trauma.] EYES: [PERRLA, EOMI, conjunctiva and sclera normal.] ENT: [Hearing grossly intact, normal oropharynx.] NECK: [Supple without JVD. There is no tenderness, lymphadenopathy, or masses. No thyromegaly. Normal carotid upstrokes without bruits.] LUNGS: [Clear breath sounds bilaterally. There are right basilar rales one third of the way up the chest. No wheezes, or rhonchi.] HEART: [Normal rate and rhythm. 2/6 holosystolic murmur.] VASC: [Peripheral pulses +2 bilaterally.] ABD: [Bowel sounds normal, soft, nontender, no masses, no organomegaly. No audible bruits.] : [Not examined] LYMPH: [No lymphadenopathy noted.] EXT: [No clubbing, cyanosis or edema.] SKIN: [No rashes or lesions noted.] NEURO: [Awake, alert, and oriented x3. No focal sensory or strength deficits noted.] Vital Signs (last 8hr) Date Time Temp Pulse Resp B/P (MAP) Pulse Ox O2 Delivery O2 Flow Rate FiO2 01/30/25 12:00 98.1 68 18 122/65 99 Room Air 21 01/30/25 08:00 98.1 83 18 136/75 99 Room Air 21 Laboratory: [ ] Hematology Labs: Test 01/30/25 03:58 01/29/25 05:06 Range/Units White Blood Count 5.0 4.8-10.8 K/uL Red Blood Count 2.86 L 4.50-6.20 MIL/uL Hemoglobin 9.1 L 14.0-18.0 g/dL Hematocrit 26.5 L 42-54 % Mean Corpuscular Volume 92.7 79-99 fL Mean Corpuscular Hemoglobin 31.8 27.0-33.0 pg Mean Corpuscular Hemoglobin Concent 34.3 32.0-36.0 g/dL Red Cell Distribution Width 14.7 11.0-15.5 % Platelet Count 96 L 130-400 K/uL Mean Platelet Volume 8.8 7.5-10.5 fL Nucleated Red Blood Cells 0.0 0.0-0.19 % Immature Granulocyte % (Auto) 0.2 0-1 % Neutrophils (%) (Auto) 62.6 40.0-77.0 % Lymphocytes (%) (Auto) 27.8 21.0-51.0 % Monocytes (%) (Auto) 7.6 3.0-13.0 % Eosinophils (%) (Auto) 1.4 0.0-8.0 % Basophils (%) (Auto) 0.4 0.0-5.0 % Neutrophils # (Auto) 3.0 1.8-7.7 K/uL Lymphocytes # (Auto) 1.4 1.0-4.8 K/uL Monocytes # (Auto) 0.4 0.1-1.0 K/uL Eosinophils # (Auto) 0.07 0.00-0.70 K/uL Basophils # (Auto) 0.02 0.00-0.20 K/uL Absolute Immature Granulocyte (auto 0.01 0-1 K/uL Chemistry Labs: Test 01/30/25 08:49 01/30/25 03:58 01/29/25 07:59 01/29/25 05:06 Range/Units C-Reactive Protein, Quantitative 37.10 H 0.5-3.0 mg/L Sodium Level 137 136-145 mmol/L Potassium Level 3.6 3.5-5.1 mmol/L Chloride Level 105 101-111 mmol/L Carbon Dioxide Level 26 21-32 mmol/L Blood Urea Nitrogen 11 7-18 mg/dL Creatinine 0.7 0.5-1.3 mg/dL Glomerular Filtration Rate Calc 97 >90 mL/min Random Glucose 90 70-105 mg/dL Lactic Acid Level 1.1 0.8-2.5 mmol/L Total Calcium 8.3 L 8.5-10.1 mg/dL Phosphorus Level 3.4 2.5-4.9 mg/dL Magnesium Level 1.90 1.80-2.40 mg/dL Cortisol AM Sample 8.9 6.2-19.4 ug/dL Total Bilirubin 0.8 0.2-1.0 mg/dL Aspartate Amino Transf (AST/SGOT) 54 H 10-37 U/L Alanine Aminotransferase (ALT/SGPT) 66 12-78 U/L Alkaline Phosphatase 231 H 50-136 U/L Ammonia 40 H 11-32 umol/L Total Protein 5.9 L 6.0-8.3 g/dL Albumin 1.5 L 3.5-5.0 g/dL Coagulation Labs: Test 01/29/25 05:06 Range/Units Prothrombin Time 12.1 H 9.6-11.6 SEC Prothromb Time International Ratio 1.16 H 0.85-1.15 Activated Partial Thromboplast Time 33.0 26.3-35.5 SEC Diagnostics / Radiology: [Copy/Paste Echos/Imaging Report here] Plan: [#Bacteremia with E.coli, possible mitral valve endocarditis -On IV abx, ID following -[facility] in AM with Dr Edmundo Mujica ] ANGELA MUJICA MD Jan 30, 2025 12:54
--- NOTE | 2025-01-30 14:39 | PN ---
[facility] PROGRESS NOTE Date of Service: Jan 30, 2025 Time of Service: 14:39 SUBJECTIVE: This is a 74-year-old male past medical history of hypertension, diabetes, hyperlipidemia ,UTI due to Ecoli and obesity with past surgical history of right colectomy and polyps removal who was brought by EMS to the ED for complaints of fever and generalized body weakness.Patient was recently admitted in this facility for septic shock and was treated with ABT for E coli and was receiving IV ABT as outpatient managed by as per patient .Patient reports he was also recently admitted in [place] and was diagnosed with Diskitis and was discharged yesterday and came back here.Today he started having fever so he decided to come to the ED for evaluation.Upon ER arrival patient V/S was T99.5,HR 119,BP 70/42 and Sat 96% RA. Seen and examined patient in the ER awake,alert and coherent,states he feels much better now than when he came in he said.On further evaluation ,patient has an open wound to sacral area,and patient reports he has been having it since he was discharge home.Patient is also on Levophed drip.Patient denies,nausea,vomiting,chest pain,palpitation,cough and shortness of breath. Latest vital signs heart rate 67, blood pressure 90/50 saturation 99% on room air. Labs: WBC 13 with negative left shift of neutrophils 89, hemoglobin 10, hematocrit 29, platelet count 122. Sodium 132, chloride 100, BUN 34, lactic acid 3.8-2.8 troponin 41. Urinalysis significant for urine bilirubin small, urine urobilinogen two, small esterase, urine WBC 6-10. While in the ER patient received vancomycin 1 g IV, Zosyn 3.375 IV, Tylenol 1000 mg p.o. and fluid r esuscitation of NS 30 mL/kilogram over 3 hours and morphine 1 mg IV. We will admit patient for further medical management. 01/28: Patient was seen and evaluated at bedside in room 207. He was awake, alert, and oriented 3, sitting comfortably in his chair during the encounter. He denies dizziness, generalized weakness, chest pain, shortness of breath, n ausea, vomiting, or other acute complaints today. He states he is relieved that his blood pressure has been improving. He remains on norepinephrine at 0.04 mcg/kg/hr. A 2D echocardiogram obtained today revealed suspicious vegetations on the mitral valve; cardiology has been consulted and evaluation is pending. Infectious Diseases has also evaluated the patient and recommended continuing vancomycin, ceftriaxone, and metronidazole (Flagyl). Blood cultures have grown gram-positive cocci in chains; final organism identification and sensitivities are pending. The patient is also pending MRI, but current pressor support is not MRI-compatible. He will require weaning off norepinephrine prior to being transported safely for imaging. He denies any new symptoms today and remains hemodynamically stable aside from ongoing vasopressor requirement. 01/29: Patient was seen and evaluated at bedside in room 207. He was awake, alert, and oriented 3. He reports feeling much better today and denies any active complaints, including chest pain, shortness of breath, dizziness, nausea, or abdominal discomfort. He is now off vasopressors and maintaining stable blood pressure around 110/70, and will be downgraded to PCCU today. Infectious Diseases has recommended a transesophageal echocardiogram (ROBERT) to further evaluate for infective endocarditis; this is currently pending. Cardiology has been consulted for management of suspected endocarditis, and their evaluation is pending as well. He remains on vancomycin, and ceftriaxone was discontinued today. Identification and sensitivities of the bacteremia are still pending. Patient has no additional concerns at this time, and all questions were addressed. 01/30: Patient was seen and evaluated at bedside in room 2. He was awake, alert, and oriented x3. patient continues to do well and denies any active complaints today. Cardiology evaluated the patient and recommended a ROBERT tomorrow to further evaluate the mitral valve vegetation seen on the ROBERT. Patient was informed that his code status will have to be changed to full code for ROBERT, and he verbalized understanding and is in agreement with proceeding to ROBERT. He continues on vancomycin (day 3). Case management has been trying to get the patient [facility] as the patient was rejected at [facility]. One of his blood cultures grew E coli which was pansensitive. We are still pending the ID and susceptibility of the Gram-positive cocci seen on the other blood culture. Repeat blood cultures were sent today, follow up with the results. Patient is still pending MRI of the spine to evaluate his osteomyelitis, follow up with Radiology. Patient has no other concerns, and all questions were addressed. REVIEW OF SYSTEMS CONSTITUTIONAL: Fever and chills Denies night sweats. No unintentional weight loss reported. NEUROLOGICAL: Complain generalized body weakness Denies headache, amaurosis fugax,sensory deficit, vertigo/spinning sensation, gait abnormalities, or trem ors. ENT: No hearing loss, otalgia, otorrhea, rhinitis, rhinorrhea, hoarseness, or sore throat. CARDIOVASCULAR: Denies any exertional angina, dyspnea on exertion, orthopnea, paroxysmal nocturnal dyspnea, palpitations, life-threatening arrhythmias, claudication. PULMONARY: Denies any shortness of breath, cough, phlegm/sputum, hemoptysis, pleuritic chest pain. SLEEP: Denies morning headaches, daytime somnolence or napping. Denies difficulty falling asleep, staying asleep, waking from sleep. Denies knowledge of snoring. GASTROINTESTINAL: Denies any type of dysphagia to either liquids or solids. Denies nausea, vomiting, pyrosis, early satiety, abdominal pain, diarrhea, constipation, or changes in stool consistency or caliber. Denies coffee-ground emesis, hematemesis, hematochezia, or melanotic stools. GENITOURINARY: Denies frequency, urgency, nocturia, hematuria or incontinence (Storage/Irritative symptoms.) Low urinary stream, straining to void, urinary intermittency or hesitancy, splitting of the voiding stream, terminal dribbling. ENDOCRINOLOGIC: Denies polyuria, polydipsia, polyphagia or heat/cold intolerances. HEMATOLOGIC: Denies thrombophilia/previous clots, or coagulopathy/bleeding disorders. ONCOLOGIC: Denies personal history of malignancy. DERMATOLOGIC: Denies rashes or pruritus. PSYCHIATRIC: Denies any suicidal or homicidal ideation. Denies hallucinations. PHYSICAL EXAM GENERAL APPEARANCE: The patient is awake, alert, and oriented, in no acute cardiopulmonary distress. NEUROLOGICAL: Cranial nerves II-XII grossly intact. Motor is 5/5 in bilateral upper and lower extremities proximal to distal. No sensory deficits. HEENT: Face is symmetric. Pupils are equal and reactive. Extraocular movements are intact. NECK: Supple. No JVD. No thyromegaly. No submental, submandibular, pre-/postauricular, occipital or supraclavicular lymphadenopathy. CHEST: Normal chest expansion. No Telemetry. LUNGS: Absence of any rales, rhonchi or any wheezing. CARDIOVASCULAR: Regular. S1 and S2 normal. No appreciable rubs, murmurs or gallops. ABDOMEN: Soft, nontender, and nondistended. There is no rebound, voluntary guarding, or rigidity. : Deferred. No Mariano. EXTREMITIES: Non-edematous and not cyanotic. No clubbing. Good capillary refill. SKIN: open wound to sacral area Vital Signs (last 8hr) Date Time Temp Pulse Resp B/P (MAP) Pulse Ox O2 Delivery O2 Flow Rate FiO2 01/30/25 12:00 98.1 68 18 122/65 99 Room Air 21 01/30/25 08:00 98.1 83 18 136/75 99 Room Air 21 LABS: Laboratory: Test 01/30/25 08:49 01/30/25 03:58 01/29/25 07:59 01/29/25 05:06 Range/Units C-Reactive Protein, Quantitative 37.10 H 0.5-3.0 mg/L White Blood Count 5.0 4.8-10.8 K/uL Red Blood Count 2.86 L 4.50-6.20 MIL/uL Hemoglobin 9.1 L 14.0-18.0 g/dL Hematocrit 26.5 L 42-54 % Mean Corpuscular Volume 92.7 79-99 fL Mean Corpuscular Hemoglobin 31.8 27.0-33.0 pg Mean Corpuscular Hemoglobin Concent 34.3 32.0-36.0 g/dL Red Cell Distribution Width 14.7 11.0-15.5 % Platelet Count 96 L 130-400 K/uL Mean Platelet Volume 8.8 7.5-10.5 fL Nucleated Red Blood Cells 0.0 0.0-0.19 % Sodium Level 137 136-145 mmol/L Potassium Level 3.6 3.5-5.1 mmol/L Chloride Level 105 101-111 mmol/L Carbon Dioxide Level 26 21-32 mmol/L Blood Urea Nitrogen 11 7-18 mg/dL Creatinine 0.7 0.5-1.3 mg/dL Glomerular Filtration Rate Calc 97 >90 mL/min Random Glucose 90 70-105 mg/dL Lactic Acid Level 1.1 0.8-2.5 mmol/L Total Calcium 8.3 L 8.5-10.1 mg/dL Phosphorus Level 3.4 2.5-4.9 mg/dL Magnesium Level 1.90 1.80-2.40 mg/dL Cortisol AM Sample 8.9 6.2-19.4 ug/dL Immature Granulocyte % (Auto) 0.2 0-1 % Neutrophils (%) (Auto) 62.6 40.0-77.0 % Lymphocytes (%) (Auto) 27.8 21.0-51.0 % Monocytes (%) (Auto) 7.6 3.0-13.0 % Eosinophils (%) (Auto) 1.4 0.0-8.0 % Basophils (%) (Auto) 0.4 0.0-5.0 % Neutrophils # (Auto) 3.0 1.8-7.7 K/uL Lymphocytes # (Auto) 1.4 1.0-4.8 K/uL Monocytes # (Auto) 0.4 0.1-1.0 K/uL Eosinophils # (Auto) 0.07 0.00-0.70 K/uL Basophils # (Auto) 0.02 0.00-0.20 K/uL Absolute Immature Granulocyte (auto 0.01 0-1 K/uL Prothrombin Time 12.1 H 9.6-11.6 SEC Prothromb Time International Ratio 1.16 H 0.85-1.15 Activated Partial Thromboplast Time 33.0 26.3-35.5 SEC Total Bilirubin 0.8 0.2-1.0 mg/dL Aspartate Amino Transf (AST/SGOT) 54 H 10-37 U/L Alanine Aminotransferase (ALT/SGPT) 66 12-78 U/L Alkaline Phosphatase 231 H 50-136 U/L Ammonia 40 H 11-32 umol/L Total Protein 5.9 L 6.0-8.3 g/dL Albumin 1.5 L 3.5-5.0 g/dL Test 01/29/25 03:44 Range/Units Blood Gas Specimen Type Arterial Arterial Blood pH 7.465 H 7.350-7.450 Arterial Blood Partial Pressure CO2 34 L 35-48 mmHg Arterial Blood Partial Pressure O2 80.1 L 83.0-108.0 mmHg Arterial Blood HCO3 23.6 21.0-28.0 mmol/L Arterial Blood Oxygen Saturation 96.5 94.0-98.0 % Arterial Blood Base Excess 0.5 -2.0-3.0 mmol/L Blood Gas Temperature 37.0 35.5-37.0 CELSIUS Blood Gas Vent Mode RA ROOM AIR FiO2 21.0 % Blood Gas Specimen Comment RB,RNMARISSA Current Medications Medications (Trade) Dose Ordered Sig/Panchito Route PRN Reason Start Time Stop Time Status Last Admin Dose Admin Acetaminophen (TYLenol 325MG TAB) 650 mg Q4H PRN PO MILD PAIN (1-3) 01/27/25 20:00 02/26/25 19:59 Acetaminophen (TYLenol 325MG TAB) 650 mg Q6H PRN PO TEMPERATURE GREATER THAN 101.5 01/27/25 20:00 02/26/25 19:59 Acetaminophen/ Hydrocodone Bitart (NORco 5/325MG) 1 tab Q6H PRN PO MODERATE PAIN (4-6) 01/27/25 16:00 02/01/25 12:00 01/29/25 19:36 1 TAB Cefepime HCl (MAXipime 2 gm vial) 2 gm Q12H IVPB 01/27/25 21:30 02/17/25 21:29 01/30/25 08:48 2 GM Famotidine (Pepcid 20mg Tab) 20 mg DAILY PO 01/28/25 09:00 02/27/25 08:59 01/30/25 08:48 20 MG Heparin Sodium (Porcine) (HEParin 5,000 UNIT VIAL) 5,000 unit Q12H SQ 01/28/25 09:00 02/27/25 08:59 01/30/25 08:46 5,000 UNIT Lactated Ringer's 1,000 ml @ 75 mls/hr [id number] IV 01/27/25 21:30 02/26/25 21:29 01/30/25 02:36 75 MLS/HR Magnesium Sulfate 50 ml @ 0 mls/hr PROTOCOL PRN IV OTHER [SEE ORDER COMMENTS] 01/27/25 20:00 02/26/25 19:59 Metronidazole/ Sodium Chloride (flaGYL) 500 mg Q8H IV 01/27/25 21:30 02/17/25 21:29 01/30/25 13:31 500 MG Morphine Sulfate (morPHINE 2MG SYG) 1 mg Q4H PRN IVP SEVERE PAIN (7-10) 01/27/25 15:30 01/27/25 15:47 DC Norepinephrine 250 ml @ 0 mls/hr PROTOCOL IV 01/27/25 17:00 01/29/25 14:46 DC 01/27/25 17:50 26.25 MLS/HR Ondansetron HCl (zoFRAN 4MG INJ) 4 mg Q6H PRN IV NAUSEA/VOMITING 01/27/25 20:00 02/26/25 19:59 Pharmacy Profile Note (Pharmacy Communication) 1 each AD MISC 01/28/25 10:30 01/28/25 10:21 DC Piperacillin Sod/ Tazobactam Sod 50 ml @ 12.5 mls/hr Q8H IV 01/27/25 22:00 01/27/25 21:32 DC Potassium Chloride 100 ml @ 100 mls/hr AD PRN IV POTASSIUM PROTOCOL 01/27/25 20:00 02/26/25 19:59 Potassium Chloride (K-Dur/Klor-Con 20meq) 20 meq AD PRN PO POTASSIUM PROTOCOL 01/27/25 20:00 02/26/25 19:59 01/30/25 08:47 20 MEQ Potassium Chloride (KCl 10% Elixir 20meq/15ml) 20 meq AD PRN PO POTASSIUM PROTOCOL 01/27/25 20:00 02/26/25 19:59 Sodium Chloride 1,000 ml @ 100 mls/hr Q10H IV 01/27/25 20:00 01/28/25 15:59 DC 01/27/25 20:04 100 MLS/HR Vancomycin HCl 250 ml @ 125 mls/hr ONCE IV 01/27/25 20:00 01/27/25 20:09 DC Vancomycin HCl 250 ml @ 125 mls/hr Q24H IV 01/28/25 20:00 02/07/25 19:59 01/29/25 21:29 125 MLS/HR Vancomycin HCl (Vancomycin Protocol) 1 each AD IV 01/27/25 20:30 02/10/25 20:29 Wound Care/ Dressing Products (Venelex Ointment) apply to coccyx BID TP 01/28/25 21:00 02/27/25 20:59 01/30/25 08:48 1 [facility] RADIOLOGY: [place] [address] IMAGING REPORT Signed PATIENT: OSITO MONTEZ MR#: [id number] : 1950 SEX: M AGE: 74 LOCATION: 2DH ORDER 230 STATUS: ADM IN REPORT#: [id number] SERVICE 0600 REASON: CHF ORDERING PHYSICIAN: JOSEPHINE AMEZCUA MD PROCEDURE: CXR1VW - CHEST 1VW EXAM: CR Chest, 1 View. CLINICAL HISTORY: CHF COMPARISON: 12/04/2024 FINDINGS: LUNGS: There is no mass, infiltrate, or acute pulmonary abnormality. PLEURAL SPACES: No evidence of pleural effusion or pneumothorax. The right CP angle is partially excluded from the [id number]. MEDIASTINUM: Cardiac size and mediastinal contours within normal limits. BONES: No aggressive appearing osseous lesion seen. IMPRESSION: No acute cardiopulmonary findings. 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 * SOFA score of 3 on 01/28, lactic acid 3.8, bilirubin 1.4, creatinine 0.7, on norepinephrine 0.04 mcg/kg/min, platelet count of 122. * Lactic acid trend: 3.8> 2.8> 1.2>1.1>1.1, procalcitonin 16.94 (01/28/2025). * Currently on Flagyl 500 mg Q 8(day 3), cefepime2 g q.12 (day 3), vancomycin (day 2). * Continue telemetry * Critical care medicine, infectious diseases on board follow their recommendations. * Trend CRP to assess resolution of the infection. * MR spine pending, follow up. * Continue to monitor. Suspected infective endocarditis of the [place] valve: * Patient's blood cultures grew Gram-positive cocci in chains and Gram-negative rods. * Gram-negative rods identified as pansensitive E coli. * Echocardiography revealed small anterior mitral valve tip vegetation versus myxomatous leaflet, Follow up with ROBERT. * Cardiology recommended a ROBERT tomorrow. * Patient meets 2 major clinical criteria for infective endocarditis with echocardiographic findings and positive blood cultures. * Continue with the current antibiotic regimen. * Follow Cardiology recommendations. Stage II pressure ulcer on coccyx with granulation and minimal slough with mild periwound erythema and no drainage: * Patient has an open wound to the sacral area. * Wound care consulted, they recommended Venelex b.i.d. and p.r.n.. * Place the patient on a waffle mattress, keep the wounds clean and dry. * Frequent repositioning q.2 hours. * Wound culture collected, pending report. * Continue current IV antibiotic management. * Continue to serially assess the lesion. DVT prophylaxis with heparin 5000 b.i.d.. GI prophylaxis with Pepcid 20 mg p.o. daily ATTESTATION BY PHYSICIAN I have seen and examined the patient. I reviewed the documentation, medical dec ision making, and treatment plan as noted by the resident physician above. I agree with the findings and plan of care. DERICK JOHNSON MD, HEMA MD Jan 30, 2025 14:39
--- NOTE | 2025-01-30 16:35 | PN ---
PROGRESS NOTE Date of Service: Jan 30, 2025 Time of Service: 16:27 SUBJECTIVE: Patient is evaluated at bedside in room 227 for wound care follow up. Patient is awake, alert and oriented x 3. Coccyx wound culture positive for joaquín albicans. REVIEW OF SYSTEMS CONSTITUTIONAL: Denies fever, chills, or fatigue. HEAD/FACE: No signs of trauma. EENT: Denies eye pain, blurred vision, double vision, or light sensitivity. RESPIRATORY: Denies shortness of breath, cough, wheezing CARDIOVASCULAR: Denies chest pain, palpitation, syncope GASTROINTESTINAL/ABDOMINAL: Denies abdominal pain, constipation, diarrhea, nausea or vomiting GENITOURINARY: Denies dysuria or hematuria. MUSCULOSKELETAL: Positive for joint pain, tenderness INTEGUMENTARY: Denies rash or itchiness NEUROLOGICAL/PSYCH: Denies anxiety, depression, heat or cold intolerance. PHYSICAL EXAM EYES: Anicteric. Pupils equal and reactive. HENT: No oral thrush seen, moist Oral mucosa NECK: Supple, no JVD or thyromegaly. LUNGS: Good air entry. No rales, no rhonchi. CARDIOVASCULAR: S1, S2 regular. No murmur heard. ABDOMEN: Soft, non tender, bowel sounds present, no organomegaly CENTRAL NERVOUS SYSTEM: Awake, alert, oriented x 3. No focal deficits. SKIN: Stage 2 pressure noted to coccyx with granulation and minimal slough with mild periwound erythema with no drainage noted. LYMPHATICS: No peripheral lymphadenopathy MUSCULOSKELETAL: No joint swelling, erythema or tenderness. EXTREMITIES: No cyanosis or clubbing BACK: No deformity GENITOURINARY: No dysuria or hematuria Vital Signs (last 8hr) Date Time Temp Pulse Resp B/P (MAP) Pulse Ox O2 Delivery O2 Flow Rate FiO2 01/30/25 15:33 97.9 79 18 130/71 97 Room Air 01/30/25 12:00 98.1 68 18 122/65 99 Room Air 21 LABS: Laboratory: Test 01/30/25 08:49 01/30/25 03:58 01/29/25 07:59 01/29/25 05:06 Range/Units C-Reactive Protein, Quantitative 37.10 H 0.5-3.0 mg/L White Blood Count 5.0 4.8-10.8 K/uL Red Blood Count 2.86 L 4.50-6.20 MIL/uL Hemoglobin 9.1 L 14.0-18.0 g/dL Hematocrit 26.5 L 42-54 % Mean Corpuscular Volume 92.7 79-99 fL Mean Corpuscular Hemoglobin 31.8 27.0-33.0 pg Mean Corpuscular Hemoglobin Concent 34.3 32.0-36.0 g/dL Red Cell Distribution Width 14.7 11.0-15.5 % Platelet Count 96 L 130-400 K/uL Mean Platelet Volume 8.8 7.5-10.5 fL Nucleated Red Blood Cells 0.0 0.0-0.19 % Sodium Level 137 136-145 mmol/L Potassium Level 3.6 3.5-5.1 mmol/L Chloride Level 105 101-111 mmol/L Carbon Dioxide Level 26 21-32 mmol/L Blood Urea Nitrogen 11 7-18 mg/dL Creatinine 0.7 0.5-1.3 mg/dL Glomerular Filtration Rate Calc 97 >90 mL/min Random Glucose 90 70-105 mg/dL Lactic Acid Level 1.1 0.8-2.5 mmol/L Total Calcium 8.3 L 8.5-10.1 mg/dL Phosphorus Level 3.4 2.5-4.9 mg/dL Magnesium Level 1.90 1.80-2.40 mg/dL Cortisol AM Sample 8.9 6.2-19.4 ug/dL Immature Granulocyte % (Auto) 0.2 0-1 % Neutrophils (%) (Auto) 62.6 40.0-77.0 % Lymphocytes (%) (Auto) 27.8 21.0-51.0 % Monocytes (%) (Auto) 7.6 3.0-13.0 % Eosinophils (%) (Auto) 1.4 0.0-8.0 % Basophils (%) (Auto) 0.4 0.0-5.0 % Neutrophils # (Auto) 3.0 1.8-7.7 K/uL Lymphocytes # (Auto) 1.4 1.0-4.8 K/uL Monocytes # (Auto) 0.4 0.1-1.0 K/uL Eosinophils # (Auto) 0.07 0.00-0.70 K/uL Basophils # (Auto) 0.02 0.00-0.20 K/uL Absolute Immature Granulocyte (auto 0.01 0-1 K/uL Prothrombin Time 12.1 H 9.6-11.6 SEC Prothromb Time International Ratio 1.16 H 0.85-1.15 Activated Partial Thromboplast Time 33.0 26.3-35.5 SEC Total Bilirubin 0.8 0.2-1.0 mg/dL Aspartate Amino Transf (AST/SGOT) 54 H 10-37 U/L Alanine Aminotransferase (ALT/SGPT) 66 12-78 U/L Alkaline Phosphatase 231 H 50-136 U/L Ammonia 40 H 11-32 umol/L Total Protein 5.9 L 6.0-8.3 g/dL Albumin 1.5 L 3.5-5.0 g/dL Test 01/29/25 03:44 Range/Units Blood Gas Specimen Type Arterial Arterial Blood pH 7.465 H 7.350-7.450 Arterial Blood Partial Pressure CO2 34 L 35-48 mmHg Arterial Blood Partial Pressure O2 80.1 L 83.0-108.0 mmHg Arterial Blood HCO3 23.6 21.0-28.0 mmol/L Arterial Blood Oxygen Saturation 96.5 94.0-98.0 % Arterial Blood Base Excess 0.5 -2.0-3.0 mmol/L Blood Gas Temperature 37.0 35.5-37.0 CELSIUS Blood Gas Vent Mode RA ROOM AIR FiO2 21.0 % Blood Gas Specimen Comment RB,RNMARISSA DIAGNOSTICS / RADIOLOGY: ORDERED: MICHELE CULTURE COMMENTS: Comment: COCCXY CULTURE IN LAB ALREADY Has specimen been collected/obtained? Y Specimen Comment: Y Comment: COCCXY CULTURE IN LAB ALREADY Has specimen been collected/obtained? Y Specimen Comment: Y Comment: COCCXY CULTURE IN LAB ALREADY Has specimen been collected/obtained? Y Specimen Comment: Y Procedure Result María Date-Time ANAEROBIC CULTURE Preliminary 01/30/25-[address] [facility] [place] DESCRIPTION: REPORT 1: NO ANAEROBES AT 16-23 HOURS; STUDIES TO CONTINUE REPORT 2: NO ANAEROBES AT 36-47 HOURS; STUDIES TO CONTINUE 1+ SKIN SANGEETHA ; STUDIES TO CONTINUE COAGULASE NEGATIVE STAPHYLOCOCCUS 1+ YEAST, JOAQUÍN ALBICANS JOAQUÍN ALBICANS Test(s) performed by: [facility] [address] [place] [address] @ [facility] Test Performed at: [facility] [address], [place], [place] Medical Pipe Line Gauger: Berry Cancino D.O. PROBLEM LIST : Medical Problems: (1) Lactic acidosis ICD Codes: E87.20 - Acidosis, unspecified (2) Sepsis ICD Codes: A41.9 - Sepsis, unspecified organism (3) Septic shock ICD Codes: A41.9 - Sepsis, unspecified organism; R65.21 - Severe sepsis with septic shock (4) Pressure ulcer of sacral region, stage 2 ICD codes: L89.152 (5) Candidiasis of skin PLAN: Wound culture collected to coccyx wound positive for joaquín albicans Wound care to coccyx wound- apply Venelex BID and PRN and nystatin powder bid Waffle mattress Keep wounds clean and dry Offloading/reposition q 2 hours Continue IV antibiotics per ID Comorbidities per primary care team Further Management per hospital course. Thank You for the consult and allowing us to participate in the care of this patient. ATTESTATION BY PHYSICIAN I have seen and examined the patient. I reviewed the documentation, medical decision making, and treatment plan as noted by the mid-level provider above. I agree with the findings and plan of care. SUSAN MARTELL MD, MICHELLE A BAND BUILDER Jan 30, 2025 16:35 SUSAN MARTELL MD Feb 13, 2025 13:41
[2025-01-30] MEDS ORDERED: GADOTERATE MEGLUMINE 10 MMOL/20 ML VIAL IV ONE (17:11)
--- NOTE | 2025-01-30 18:51 | PN ---
INFECTIOUS DISEASE PROGRESS NOTE Date of Service: Jan 30, 2025 SUBJECTIVE: This is a 74-year-old male patient who was admitted to the hospital with chief complaint of fever and generalized body weakness. Patient was recently at [facility] in [place], discharge records obtained by family showed that the blood cultures grew Enterococcus species and a lumbar MRI showed lumbar spine diskitis and osteomyelitis. A MRI of the lumbar spine was obtained today and pending Radiology interpretation. Patient has a stage II coccygeal ulcer and the wound cultures obtained on admission came back positive with with Jennifer albicans today. The blood culture final results came back positive for E coli. We will start patient on fluconazole p.o and continue on vancomycin and cefepime. Remains afebrile, temperature is 98.1 and the WBC has trended down to 5.0. We will continue to monitor patient. PHYSICAL EXAM EYES: Anicteric. Pupils equal and reactive. HENT: No oral thrush seen, moist Oral mucosa. NECK: Supple, no JVD or thyromegaly. LUNGS: Good air entry. No rales, no rhonchi. CARDIOVASCULAR: S1, S2 regular. No murmur heard. ABDOMEN: Soft, non tender, bowel sounds present. CENTRAL NERVOUS SYSTEM: Awake, alert, oriented x 3. SKIN: No rashes, no swelling. LYMPHATICS: No peripheral lymphadenopathy. MUSCULOSKELETAL: No joint swelling, erythema or tenderness. EXTREMITIES: No cyanosis or clubbing BACK: Stage II coccygeal ulcer. GENITOURINARY: No dysuria or hematuria Vital Sign (Last 12 Hours) 01/30/25 01/30/25 01/30/25 08:00 12:00 15:33 Temp 98.1 98.1 97.9 Pulse 83 68 79 Resp 18 18 18 B/P (MAP) 136/75 122/65 130/71 Pulse Ox 99 99 97 O2 Delivery Room Air Room Air Room Air FiO2 21 21 Intake & Output (last 24hrs) 01/29/25 01/29/25 01/30/25 15:00 23:00 07:00 Intake Total 690.0 ml 675.0 ml 100.0 ml Output Total 750 ml 600 ml Balance 690.0 ml -75.0 ml -500.0 ml LABS: Laboratory: Test 01/30/25 08:49 01/30/25 03:58 01/29/25 07:59 01/29/25 05:06 Range/Units C-Reactive Protein, Quantitative 37.10 H 0.5-3.0 mg/L White Blood Count 5.0 4.8-10.8 K/uL Red Blood Count 2.86 L 4.50-6.20 MIL/uL Hemoglobin 9.1 L 14.0-18.0 g/dL Hematocrit 26.5 L 42-54 % Mean Corpuscular Volume 92.7 79-99 fL Mean Corpuscular Hemoglobin 31.8 27.0-33.0 pg Mean Corpuscular Hemoglobin Concent 34.3 32.0-36.0 g/dL Red Cell Distribution Width 14.7 11.0-15.5 % Platelet Count 96 L 130-400 K/uL Mean Platelet Volume 8.8 7.5-10.5 fL Nucleated Red Blood Cells 0.0 0.0-0.19 % Sodium Level 137 136-145 mmol/L Potassium Level 3.6 3.5-5.1 mmol/L Chloride Level 105 101-111 mmol/L Carbon Dioxide Level 26 21-32 mmol/L Blood Urea Nitrogen 11 7-18 mg/dL Creatinine 0.7 0.5-1.3 mg/dL Glomerular Filtration Rate Calc 97 >90 mL/min Random Glucose 90 70-105 mg/dL Lactic Acid Level 1.1 0.8-2.5 mmol/L Total Calcium 8.3 L 8.5-10.1 mg/dL Phosphorus Level 3.4 2.5-4.9 mg/dL Magnesium Level 1.90 1.80-2.40 mg/dL Cortisol AM Sample 8.9 6.2-19.4 ug/dL Immature Granulocyte % (Auto) 0.2 0-1 % Neutrophils (%) (Auto) 62.6 40.0-77.0 % Lymphocytes (%) (Auto) 27.8 21.0-51.0 % Monocytes (%) (Auto) 7.6 3.0-13.0 % Eosinophils (%) (Auto) 1.4 0.0-8.0 % Basophils (%) (Auto) 0.4 0.0-5.0 % Neutrophils # (Auto) 3.0 1.8-7.7 K/uL Lymphocytes # (Auto) 1.4 1.0-4.8 K/uL Monocytes # (Auto) 0.4 0.1-1.0 K/uL Eosinophils # (Auto) 0.07 0.00-0.70 K/uL Basophils # (Auto) 0.02 0.00-0.20 K/uL Absolute Immature Granulocyte (auto 0.01 0-1 K/uL Prothrombin Time 12.1 H 9.6-11.6 SEC Prothromb Time International Ratio 1.16 H 0.85-1.15 Activated Partial Thromboplast Time 33.0 26.3-35.5 SEC Total Bilirubin 0.8 0.2-1.0 mg/dL Aspartate Amino Transf (AST/SGOT) 54 H 10-37 U/L Alanine Aminotransferase (ALT/SGPT) 66 12-78 U/L Alkaline Phosphatase 231 H 50-136 U/L Ammonia 40 H 11-32 umol/L Total Protein 5.9 L 6.0-8.3 g/dL Albumin 1.5 L 3.5-5.0 g/dL Test 01/29/25 03:44 Range/Units Blood Gas Specimen Type Arterial Arterial Blood pH 7.465 H 7.350-7.450 Arterial Blood Partial Pressure CO2 34 L 35-48 mmHg Arterial Blood Partial Pressure O2 80.1 L 83.0-108.0 mmHg Arterial Blood HCO3 23.6 21.0-28.0 mmol/L Arterial Blood Oxygen Saturation 96.5 94.0-98.0 % Arterial Blood Base Excess 0.5 -2.0-3.0 mmol/L Blood Gas Temperature 37.0 35.5-37.0 CELSIUS Blood Gas Vent Mode RA ROOM AIR FiO2 21.0 % Blood Gas Specimen Comment RB,RNMARISSA [facility] / RADIOLOGY: PATIENT: OSITO MONTEZ ACCT: [id number] LOC: [facility] U: [id number] AGE/SX: 74/M ROOM: 227 RE01/27/[address]: BEATRICE DORANTES MD : 1950 BED: 1 DIS: STATUS: ADM IN TLOC: SPEC: [id number] LADARIUS: 01/27/25 STATUS: AISLINN REQ: [id number] RECD: 01/28/25 [facility] DR: SUSIE ARNDT MD SOURCE: BLOOD ENTR: 01/28/[address] [facility] [address]: SELF,REFERRAL [facility]: BLOOD ORDERED: AERO ID & SENS Procedure Result María Date-Time AEROBIC ID & SENSITIVITIES Final 01/30/25-703 [facility] COLONY DESCRIPTION: DAY 1: GRAM NEGATIVE RODS AEROBIC AND ANAEROBIC BOTTLES IDENTIFICATION AND SENSITIVITY TO FOLLOW ESCHERICHIA COLI E COLI M.I.C. RX --------- ---- AMPICILLIN <=8 S AZTREONAM <=4 S CEFAZOLIN <=2 S CEFTAZIDIME/AVIBACTAM <=8 S GENTAMICIN <=2 S LEVOFLOXACIN <=0.5 S MEROPENEM <=1 S PIPERACILLIN/TAZOBACTAM <=8 S TRIMETHOPRIM/SUFLAMETHOXAZOLE <=2/38 S ------ ------ PATIENT: OSITO MONTEZ ACCT: [id number] LOC: [facility] U: [id number] AGE/SX: 74/M ROOM: 227 RE01/27/[address]: BEATRICE DORANTES MD : 1950 BED: 1 DIS: STATUS: ADM IN TLOC: SPEC: [id number] LADARIUS: 01/28/25 STATUS: RES REQ: [id number] RECD: 01/28/25 [facility] DR: JOSEPHINE AMEZCUA MD SOURCE: OTHER SOUR ENTR: 01/28/[address]: MAURICIO GANDHI MD SPDESC: OTHER BEATRICE DORANTES MD,SUSAN GARCIA MD SELF,REFERRAL SY,KAMRYN Bryan MD ORDERED: MICHELE CULTURE COMMENTS: Comment: COCCXY CULTURE IN LAB ALREADY Has specimen been collected/obtained? Y Specimen Comment: Y Comment: COCCXY CULTURE IN LAB ALREADY Has specimen been collected/obtained? Y Specimen Comment: Y Comment: COCCXY CULTURE IN LAB ALREADY Has specimen been collected/obtained? Y Specimen Comment: Y Procedure Result María Date-Time ANAEROBIC CULTURE Preliminary 01/30/25-1108 [facility] COLONY DESCRIPTION: REPORT 1: NO ANAEROBES AT 16-23 HOURS; STUDIES TO CONTINUE REPORT 2: NO ANAEROBES AT 36-47 HOURS; STUDIES TO CONTINUE 1+ SKIN SANGEETHA ; STUDIES TO CONTINUE COAGULASE NEGATIVE STAPHYLOCOCCUS 1+ YEAST, JENNIFER ALBICANS JENNIFER ALBICANS ASSESSMENT: E coli bacteremia. Mitral valve vegetation. Lumbar spine osteomyelitis on recent hospitalization at [facility] in [place]. Sepsis. Stage II coccygeal ulcer with Jennifer albicans infection. Urinary tract infection. Leukocytosis, resolved. Diabetes mellitus. PLAN: Start fluconazole 200 mg p.o. daily. Continue vancomycin per pharmacy protocol. Continue cefepime IV. Continue GI prophylaxis. Continue pain management. Continue wound care. Continue antidiabetics. This case was reviewed and discussed with my supervising physician Dr. Gandhi and the above assessment and plan was formulated and agreed upon. ATTESTATION BY PHYSICIAN I have seen and examined the patient. I reviewed the documentation, medical decision making, and treatment plan as noted by the mid-level provider above. I agree with the findings and plan of care. MAURICIO GANDHI MD, [facility] Jan 30, 2025 18:51
--- NOTE | 2025-01-30 19:56 | PN ---
[facility] PROGRESS NOTE Date Patient Seen: Jan 30, 2025 Time of Visit: 19:54 Supervising Physician: JOSEPHINE AMEZCUA MD Primary Care Physician: [ Dr. Edgar Villela] Outpatient Specialists: [ ] Inpatient Consults: [[facility], Dr. Espinosa: ID] PROBLEM LIST: Acute sepsis with septic shock on admission Diskitis of the L4-L5 area on admission Gram-negative rods bacteremia Mitral valve endocarditis with positive vegetation 01/28/2025 2D echocardiogram Liver cirrhosis Hepatic transaminitis Atrial fibrillation Acute complicated cystitis with Enterococcus bacteria Prediabetes Primary hypertension Normocytic anemia INTERVAL HISTORY: Patient is seen in room 227 Awake, alert, no acute distress On room air No fevers Hemodynamically stable Good appetite, no chest pain, voiding, no constipation. Pending transesophageal echocardiogram REVIEW OF SYSTEMS: 12 point ROS reviewed with patient. Pertinent positives mentioned above. Otherwise negative. PHYSICAL EXAM: GENERAL: alert, awake oriented x 3 HEENT: EOMI, Sclera icteric, moist mucosa NECK: Supple, no JVD, trachea midline LUNGS: Clear breath sounds bilaterally. No wheezes HEART: Regular rate, regular rhythm. Systolic ejection murmur 3/4 ABD: Abdomen soft, nontender. Bowel sounds present EXT: No clubbing cyanosis or edema; no tenderness on vertebrae SKIN: Jaundiced, stage II pressure injury on sacrum NEURO: Alert and oriented to person, follows commands Vital Signs (last 8hr) Date Time Temp Pulse Resp B/P (MAP) Pulse Ox O2 Delivery O2 Flow Rate FiO2 01/30/25 19:19 99.0 85 16 115/59 97 Room Air 01/30/25 15:33 97.9 79 18 130/71 97 Room Air 01/30/25 12:00 98.1 68 18 122/65 99 Room Air 21 LABS: Hematology Labs: Test 01/30/25 03:58 01/29/25 05:06 Range/Units White Blood Count 5.0 4.8-10.8 K/uL Red Blood Count 2.86 L 4.50-6.20 MIL/uL Hemoglobin 9.1 L 14.0-18.0 g/dL Hematocrit 26.5 L 42-54 % Mean Corpuscular Volume 92.7 79-99 fL Mean Corpuscular Hemoglobin 31.8 27.0-33.0 pg Mean Corpuscular Hemoglobin Concent 34.3 32.0-36.0 g/dL Red Cell Distribution Width 14.7 11.0-15.5 % Platelet Count 96 L 130-400 K/uL Mean Platelet Volume 8.8 7.5-10.5 fL Nucleated Red Blood Cells 0.0 0.0-0.19 % Immature Granulocyte % (Auto) 0.2 0-1 % Neutrophils (%) (Auto) 62.6 40.0-77.0 % Lymphocytes (%) (Auto) 27.8 21.0-51.0 % Monocytes (%) (Auto) 7.6 3.0-13.0 % Eosinophils (%) (Auto) 1.4 0.0-8.0 % Basophils (%) (Auto) 0.4 0.0-5.0 % Neutrophils # (Auto) 3.0 1.8-7.7 K/uL Lymphocytes # (Auto) 1.4 1.0-4.8 K/uL Monocytes # (Auto) 0.4 0.1-1.0 K/uL Eosinophils # (Auto) 0.07 0.00-0.70 K/uL Basophils # (Auto) 0.02 0.00-0.20 K/uL Absolute Immature Granulocyte (auto 0.01 0-1 K/uL Chemistry Labs: Test 01/30/25 08:49 01/30/25 03:58 01/29/25 07:59 01/29/25 05:06 Range/Units C-Reactive Protein, Quantitative 37.10 H 0.5-3.0 mg/L Sodium Level 137 136-145 mmol/L Potassium Level 3.6 3.5-5.1 mmol/L Chloride Level 105 101-111 mmol/L Carbon Dioxide Level 26 21-32 mmol/L Blood Urea Nitrogen 11 7-18 mg/dL Creatinine 0.7 0.5-1.3 mg/dL Glomerular Filtration Rate Calc 97 >90 mL/min Random Glucose 90 70-105 mg/dL Lactic Acid Level 1.1 0.8-2.5 mmol/L Total Calcium 8.3 L 8.5-10.1 mg/dL Phosphorus Level 3.4 2.5-4.9 mg/dL Magnesium Level 1.90 1.80-2.40 mg/dL Cortisol AM Sample 8.9 6.2-19.4 ug/dL Total Bilirubin 0.8 0.2-1.0 mg/dL Aspartate Amino Transf (AST/SGOT) 54 H 10-37 U/L Alanine Aminotransferase (ALT/SGPT) 66 12-78 U/L Alkaline Phosphatase 231 H 50-136 U/L Ammonia 40 H 11-32 umol/L Total Protein 5.9 L 6.0-8.3 g/dL Albumin 1.5 L 3.5-5.0 g/dL Coagulation Labs: Test 01/29/25 05:06 Range/Units Prothrombin Time 12.1 H 9.6-11.6 SEC Prothromb Time International Ratio 1.16 H 0.85-1.15 Activated Partial Thromboplast Time 33.0 26.3-35.5 SEC DIAGNOSTICS / RADIOLOGY RESULTS: [ ] PLAN Continue IV antibiotics Pending transesophageal echocardiogram NEURO: Minimize central acting medications as possible. Maintain fall precautions, adequate lighting during the day PULMONARY: Supplemental 02 as needed. Maintain aspiration precautions at all times CARDIOVASCULAR: Follow hemodynamics. Vital signs per facility protocol GI & NUTRITION: Continue with nutritional support. Continue stool softeners and laxatives as needed. KIDNEYS & ELECTROLYTES: Strict monitoring of intake, output and overall fluid balance. Avoid nephrotoxic medications to the extent possible. Medications to be dosed according to renal function. Monitor electrolytes and replace as needed ENDOCRINE: Maintain blood glucose between 100-180 at all times. Hypoglycemia protocol in place INFECTIOUS DISEASE: Trend temperature, WBC and procalcitonin level Follow cultures, deescalate antibiotics as soon as possible. Panculture if new onset fever ONCOLOGY/HEMATOLOGY/COAGULATION: Monitor for s/s of bleeding Monitor hemoglobin, coagulation studies as needed SKIN: Pressure ulcer prevention per facility protocol Specialty mattress ORTHO/REHAB: Continue PT/OT Prophylaxis: Continue GI and DVT prophylaxis Code Status: Full Resuscitation Disposition: TBD I personally scribed for JOSEPHINE AMEZCUA MD (FRANKI) on 01/30/25 at 19:56. Electronically submitted by Heriberto Flood ([email or web address]). JOSEPHINE AMEZCUA MD Jan 30, 2025 19:56
[2025-01-31] VITALS (8 sets, daily range): BP systolic 95–152; BP diastolic 59–86; PULSE 70–98; RESP 16–18; TEMP 97.5–98.7; O2SAT 99
[2025-01-31 04:55] LABS: NUCLEATED RED BLOOD CELLS 0.0 % (0.0-0.19); PLATELET COUNT (AUTO) 94.0 K/uL (130-400); RED BLOOD CELL COUNT(AUTO) 2.98 MIL/uL (4.50-6.20); RED CELL DISTRIBUTION WIDTH 14.6 % (11.0-15.5); WHITE BLOOD COUNT (AUTO) 6.2 K/uL (4.8-10.8)
[2025-01-31 05:27] LABS: CREATININE 0.8 mg/dL (0.5-1.3); GLOMERULAR FILTR. RATE CALC 93.0 mL/min (>90); GLUCOSE,RANDOM 85.0 mg/dL (70-105); PHOSPHORUS 3.1 mg/dL (2.5-4.9); SODIUM SERUM 135.0 mmol/L (136-145); UREA NITROGEN, BLOOD 12.0 mg/dL (7-18)
--- NOTE | 2025-01-31 06:38 | HMCIMG ---
EXAM: MR Lumbar Spine Without Intravenous Contrast. CLINICAL HISTORY: L4-L5 osteomyelitis. TECHNIQUE: Magnetic resonance images of the lumbar spine in multiple planes. CONTRAST: 15mL Clariscan COMPARISON: None. FINDINGS: For this examination, spinal levels were labeled assuming five non-rib bearing, lumbar-type vertebrae with the inferior labeled L5. No acute fracture. Loss of lumbar lordosis. Normal vertebral body height. Mild disc desiccation and disc bulges at L3-L4 and L5-S1 level. Fluid signal intensity at L4-L5 level with subtle erosive changes at the inferior endplate of L4 and superior endplate of the L5 vertebra with bone marrow edema. Consistent with changes of discitis. Conus medullaris terminates at the T12-L1 level. No abnormal epidural masses. The surrounding soft tissues are unremarkable. Individual spinal levels are described as follows: T12-L1: No disc bulge or herniation. No neural foraminal, lateral recess or spinal canal stenosis. L1-L2: No disc bulge or herniation. No neural foraminal, lateral recess or spinal canal stenosis. L2-L3: No disc bulge or herniation. No neural foraminal, lateral recess or spinal canal stenosis. L3-L4: Disc desiccation with severe bilateral facet arthropathy and ligamentum flavum hypertrophy. Moderate narrowing of the right neural foramina and mild narrowing of the left neural foramina. Left paracentral annular tear. Mild ligamentum flavum hypertrophy. No significant lateral recess or spinal canal stenosis. L4-L5: Degenerative reduction in disc space with fluid signal intensity at the L4-L5 intervertebral disc with subtle erosive changes involving the inferior endplate of the L4 and superior endplate of the L5 vertebra. Bone marrow edema in the L4 and L5 vertebra. Consistent with changes of discitis. Minimal inflammatory collection in the prevertebral region and inflammatory phlegmon in the bilateral psoas major muscle left more than right. Minimal epidural collection. Moderate narrowing of the left lateral recess. Moderate to severe narrowing of the left neural foramina and mild to moderate narrowing of the right neural foramina. Abutment of bilateral exiting L4 and traversing L5 nerve root. Mild spinal canal stenosis. L5-S1: Disc desiccation with 4 mm right paracentral disc protrusion with small annular tear. Moderate narrowing of the bilateral neural foramina right more than left. Abutment of bilateral exiting L5 nerve root. No significant lateral recess or spinal canal stenosis. Bilateral pars defect without evidence of anterolisthesis. Occult spina bifida of the L5 vertebra. Moderate degenerative changes in the bilateral sacroiliac joints. IMPRESSION: No evidence of acute fracture or subluxation. Normal vertebral body height. Fluid signal intensity at L4-L5 level with subtle erosive changes at the inferior endplate of L4 and superior endplate of the L5 vertebra with bone marrow edema. 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 Moderate narrowing of the left lateral recess and bilateral neural foramina left more than right. Mild spinal canal stenosis. Disc desiccation with disc bulges at L4-L5 and L5-S1 level with moderate degenerative changes as described above. /[place]
[2025-01-31] MEDS: MAGNESIUM 2GM PREMIX 50ML 50 ML IV PRN (08:41)
[2025-01-31] MEDS: VANCOMYCIN 1.25 GM/250 ML BAG 250 ML IV SCH (09:13)
--- NOTE | 2025-01-31 09:38 | HMCIMG ---
EXAM: CR Chest, 1 View. CLINICAL HISTORY: CHF COMPARISON: 01/29/2025 FINDINGS: LUNGS: The lungs show no infiltrate or other acute finding. PLEURAL SPACES: No evidence of pleural effusion or pneumothorax. MEDIASTINUM: The cardiomediastinal silhouette is within normal limits. BONES: No aggressive appearing osseous lesion seen. IMPRESSION: No acute cardiopulmonary pathology is evident. No adverse interval changes. /[place]
[2025-01-31] MEDS: MIDAZOLAM HCL 1 MG/ML 2ML VIAL IVP ONE (10:16)
[2025-01-31] MEDS: LIDOCAINE HCL 2% VISCOUS 15 ML UDCUP PO ONE (10:17)
--- NOTE | 2025-01-31 11:16 | PN ---
[facility] CARDIOLOGY PROGRESS NOTE Date Patient Seen: Jan 31, 2025 Time of Visit: 11:11 Interval History: [No acute events overnight. Patient underwent ROBERT today at the bedside, no evidence of vegetation was found, no evidence of endocarditis with negative bubble study, no postprocedure complications. ] Physical Examination: GENERAL: [No acute distress.] HEAD: [Normal with no signs of head trauma.] EYES: [PERRLA, EOMI, conjunctiva and sclera normal.] ENT: [Hearing grossly intact, normal oropharynx.] NECK: [Supple without JVD. There is no tenderness, lymphadenopathy, or masses. No thyromegaly. Normal carotid upstrokes without bruits.] LUNGS: [Clear breath sounds bilaterally. No wheezes, or rhonchi.] HEART: [Normal rate and rhythm. 2/6 holosystolic murmur.] VASC: [Peripheral pulses +2 bilaterally.] ABD: [Bowel sounds normal, soft, nontender, no masses, no organomegaly. No audible bruits.] : [Not examined] LYMPH: [No lymphadenopathy noted.] EXT: [No clubbing, cyanosis or edema.] SKIN: [No rashes or lesions noted.] NEURO: [Awake, alert, and oriented x3. No focal sensory or strength deficits noted.] Laboratory: [ ] Hematology Labs: Test 01/31/25 04:41 Range/Units White Blood Count 6.2 4.8-10.8 K/uL Red Blood Count 2.98 L 4.50-6.20 MIL/uL Hemoglobin 9.6 L 14.0-18.0 g/dL Hematocrit 28.0 L 42-54 % Mean Corpuscular Volume 94.0 79-99 fL Mean Corpuscular Hemoglobin 32.2 27.0-33.0 pg Mean Corpuscular Hemoglobin Concent 34.3 32.0-36.0 g/dL Red Cell Distribution Width 14.6 11.0-15.5 % Platelet Count 94 L 130-400 K/uL Mean Platelet Volume 9.0 7.5-10.5 fL Nucleated Red Blood Cells 0.0 0.0-0.19 % Chemistry Labs: Test 01/31/25 04:41 01/30/25 08:49 Range/Units Sodium Level 135 L 136-145 mmol/L Potassium Level 4.5 3.5-5.1 mmol/L Chloride Level 103 101-111 mmol/L Carbon Dioxide Level 26 21-32 mmol/L Blood Urea Nitrogen 12 7-18 mg/dL Creatinine 0.8 0.5-1.3 mg/dL Glomerular Filtration Rate Calc 93 >90 mL/min Random Glucose 85 70-105 mg/dL Lactic Acid Level 1.2 0.8-2.5 mmol/L Total Calcium 8.2 L 8.5-10.1 mg/dL Phosphorus Level 3.1 2.5-4.9 mg/dL Magnesium Level 1.80 1.80-2.40 mg/dL C-Reactive Protein, Quantitative 37.10 H 0.5-3.0 mg/L Diagnostics / Radiology: [Copy/Paste Echos/Imaging Report here] Impression and Plan: [Acute sepsis with septic shock on admission Diskitis of the L4-L5 area on admission Gram-negative rods bacteremia ROBERT with no evidence of endocarditis negative bubble study done on 01/31/2025 Liver cirrhosis Hepatic transaminitis Atrial fibrillation Acute complicated cystitis with Enterococcus bacteria Prediabetes Primary hypertension Normocytic anemia ] #bacteremia with E coli Possible mitral valve vegetation 01/28/2025 2D echocardiogram ROBERT 01/31/2025 at the bedside, no evidence of vegetation was found, no evidence of endocarditis with negative bubble study, no postprocedure complications Recommend continue IV antibiotics No need for further invasive procedures from the cardiology standpoint Thank you for this consult cardiology will continue to follow along Edmundo alvarenga MD ATTESTATION BY PHYSICIAN I have seen and examined the patient, reviewed the above documentation, participated in medical decision making, made necessary modifications, and agree with the treatment plan as documented by my mid-level provider above. MD LAWRENCE Hanna JAMES R MD Jan 31, 2025 11:16
--- NOTE | 2025-01-31 11:36 | PN ---
[facility] PROGRESS NOTE Date of Service: Jan 31, 2025 Time of Service: 11:36 SUBJECTIVE: This is a 74-year-old male past medical history of hypertension, diabetes, hyperlipidemia ,UTI due to Ecoli and obesity with past surgical history of right colectomy and polyps removal who was brought by EMS to the ED for complaints of fever and generalized body weakness.Patient was recently admitted in this facility for septic shock and was treated with ABT for E coli and was receiving IV ABT as outpatient managed by as per patient .Patient reports he was also recently admitted in [place] and was diagnosed with Diskitis and was discharged yesterday and came back here.Today he started having fever so he decided to come to the ED for evaluation.Upon ER arrival patient V/S was T99.5,HR 119,BP 70/42 and Sat 96% RA. Seen and examined patient in the ER awake,alert and coherent,states he feels much better now than when he came in he said.On further evaluation ,patient has an open wound to sacral area,and patient reports he has been having it since he was discharge home.Patient is also on Levophed drip.Patient denies,nausea,vomiting,chest pain,palpitation,cough and shortness of breath. Latest vital signs heart rate 67, blood pressure 90/50 saturation 99% on room air. Labs: WBC 13 with negative left shift of neutrophils 89, hemoglobin 10, hematocrit 29, platelet count 122. Sodium 132, chloride 100, BUN 34, lactic acid 3.8-2.8 troponin 41. Urinalysis significant for urine bilirubin small, urine urobilinogen two, small esterase, urine WBC 6-10. While in the ER patient received vancomycin 1 g IV, Zosyn 3.375 IV, Tylenol 1000 mg p.o. and fluid r esuscitation of NS 30 mL/kilogram over 3 hours and morphine 1 mg IV. We will admit patient for further medical management. 01/28: Patient was seen and evaluated at bedside in room 207. He was awake, alert, and oriented 3, sitting comfortably in his chair during the encounter. He denies dizziness, generalized weakness, chest pain, shortness of breath, n ausea, vomiting, or other acute complaints today. He states he is relieved that his blood pressure has been improving. He remains on norepinephrine at 0.04 mcg/kg/hr. A 2D echocardiogram obtained today revealed suspicious vegetations on the mitral valve; cardiology has been consulted and evaluation is pending. Infectious Diseases has also evaluated the patient and recommended continuing vancomycin, ceftriaxone, and metronidazole (Flagyl). Blood cultures have grown gram-positive cocci in chains; final organism identification and sensitivities are pending. The patient is also pending MRI, but current pressor support is not MRI-compatible. He will require weaning off norepinephrine prior to being transported safely for imaging. He denies any new symptoms today and remains hemodynamically stable aside from ongoing vasopressor requirement. 01/29: Patient was seen and evaluated at bedside in room 207. He was awake, alert, and oriented 3. He reports feeling much better today and denies any active complaints, including chest pain, shortness of breath, dizziness, nausea, or abdominal discomfort. He is now off vasopressors and maintaining stable blood pressure around 110/70, and will be downgraded to PCCU today. Infectious Diseases has recommended a transesophageal echocardiogram (ROBERT) to further evaluate for infective endocarditis; this is currently pending. Cardiology has been consulted for management of suspected endocarditis, and their evaluation is pending as well. He remains on vancomycin, and ceftriaxone was discontinued today. Identification and sensitivities of the bacteremia are still pending. Patient has no additional concerns at this time, and all questions were addressed. 01/30: Patient was seen and evaluated at bedside in room 2. He was awake, alert, and oriented x3. patient continues to do well and denies any active complaints today. Cardiology evaluated the patient and recommended a ROBERT tomorrow to further evaluate the mitral valve vegetation seen on the ROBERT. Patient was informed that his code status will have to be changed to full code for ROBERT, and he verbalized understanding and is in agreement with proceeding to ROBERT. He continues on vancomycin (day 3). Case management has been trying to get the patient placed on a group home facility as the patient was rejected at [facility]. One of his blood cultures grew E coli which was pansensitive. We are still pending the ID and susceptibility of the Gram-positive cocci seen on the other blood culture. Repeat blood cultures were sent today, follow up with the results. Patient is still pending MRI of the spine to evaluate his osteomyelitis, follow up with Radiology. Patient has no other concerns, and all questions were addressed. 01/31/2025 Patient is seen and examined at the bedside today. Vital signs remained stable with blood pressure in 100s/60s, heart rate in 70s, oxygen saturation greater than 95% on room air. He has been afebrile. No acute events last night. He reports feeling well and denies fever, chills, chest pain, palpitations, abdominal pain or diarrhea or any new symptoms. He underwent a ROBERT today which showed no evidence of vegetations or endocarditis and the bubble study was negative. He remains on fluconazole, vancomycin and cefepime. Labs WBC 6.2, hemoglobin 9.6, BNP unremarkable, CRP trended down from 60.90 to 37. We will continue to monitor his clinical status. REVIEW OF SYSTEMS CONSTITUTIONAL: Denies night sweats. No unintentional weight loss reported. NEUROLOGICAL: Denies headache, amaurosis fugax,sensory deficit, vertigo/spinning sensation, gait abnormalities, or tremors. ENT: No hearing loss, otalgia, otorrhea, rhinitis, rhinorrhea, hoarseness, or sore throat. CARDIOVASCULAR: Denies any exertional angina, dyspnea on exertion, orthopnea, paroxysmal nocturnal dyspnea, palpitations, life-threatening arrhythmias, claudication. PULMONARY: Denies any shortness of breath, cough, phlegm/sputum, hemoptysis, pleuritic chest pain. SLEEP: Denies morning headaches, daytime somnolence or napping. Denies difficulty falling asleep, staying asleep, waking from sleep. Denies knowledge of snoring. GASTROINTESTINAL: Denies any type of dysphagia to either liquids or solids. Denies nausea, vomiting, pyrosis, early satiety, abdominal pain, diarrhea, constipation, or changes in stool consistency or caliber. Denies coffee-ground emesis, hematemesis, hematochezia, or melanotic stools. GENITOURINARY: Denies frequency, urgency, nocturia, hematuria or incontinence ENDOCRINOLOGIC: Denies polyuria, polydipsia, polyphagia or heat/cold intoler ances. HEMATOLOGIC: Denies thrombophilia/previous clots, or coagulopathy/bleeding disorders. ONCOLOGIC: Denies personal history of malignancy. DERMATOLOGIC: Denies rashes or pruritus. PSYCHIATRIC: Denies any suicidal or homicidal ideation. Denies hallucinations. PHYSICAL EXAM GENERAL APPEARANCE: The patient is awake, alert, and oriented, in no acute cardiopulmonary distress. NEUROLOGICAL: Cranial nerves II-XII grossly intact. Motor is 5/5 in bilateral upper and lower extremities proximal to distal. No sensory deficits. HEENT: Face is symmetric. Pupils are equal and reactive. Extraocular movements are intact. NECK: Supple. No JVD. No thyromegaly. No submental, submandibular, pre- /postauricular, occipital or supraclavicular lymphadenopathy. CHEST: Normal chest expansion. No Telemetry. LUNGS: Absence of any rales, rhonchi or any wheezing. CARDIOVASCULAR: Regular. S1 and S2 normal. No appreciable rubs, murmurs or gallops. ABDOMEN: Soft, nontender, and nondistended. There is no rebound, voluntary guarding, or rigidity. : Deferred. No Mariano. EXTREMITIES: Non-edematous and not cyanotic. No clubbing. Good capillary refill. SKIN: open wound to sacral area Vital Signs (last 8hr) Date Time Temp Pulse Resp B/P (MAP) Pulse Ox O2 Delivery O2 Flow Rate FiO2 01/31/25 08:00 98.6 98 18 152/86 99 Room Air LABS: Laboratory: Test 01/31/25 04:41 01/30/25 19:28 01/30/25 08:49 Range/Units White Blood Count 6.2 4.8-10.8 K/uL Red Blood Count 2.98 L 4.50-6.20 MIL/uL Hemoglobin 9.6 L 14.0-18.0 g/dL Hematocrit 28.0 L 42-54 % Mean Corpuscular Volume 94.0 79-99 fL Mean Corpuscular Hemoglobin 32.2 27.0-33.0 pg Mean Corpuscular Hemoglobin Concent 34.3 32.0-36.0 g/dL Red Cell Distribution Width 14.6 11.0-15.5 % Platelet Count 94 L 130-400 K/uL Mean Platelet Volume 9.0 7.5-10.5 fL Nucleated Red Blood Cells 0.0 0.0-0.19 % Sodium Level 135 L 136-145 mmol/L Potassium Level 4.5 3.5-5.1 mmol/L Chloride Level 103 101-111 mmol/L Carbon Dioxide Level 26 21-32 mmol/L Blood Urea Nitrogen 12 7-18 mg/dL Creatinine 0.8 0.5-1.3 mg/dL Glomerular Filtration Rate Calc 93 >90 mL/min Random Glucose 85 70-105 mg/dL Lactic Acid Level 1.2 0.8-2.5 mmol/L Total Calcium 8.2 L 8.5-10.1 mg/dL Phosphorus Level 3.1 2.5-4.9 mg/dL Magnesium Level 1.80 1.80-2.40 mg/dL Vancomycin Level Trough 6.2 L 10.0-20.0 UG/ML C-Reactive Protein, Quantitative 37.10 H 0.5-3.0 mg/L Current Medications Medications (Trade) Dose Ordered Sig/Panchito Route PRN Reason Start Time Stop Time Status Last Admin Dose Admin Acetaminophen (TYLenol 325MG TAB) 650 mg Q4H PRN PO MILD PAIN (1-3) 01/27/25 20:00 02/26/25 19:59 Acetaminophen (TYLenol 325MG TAB) 650 mg Q6H PRN PO TEMPERATURE GREATER THAN 101.5 01/27/25 20:00 02/26/25 19:59 Acetaminophen/ Hydrocodone Bitart (NORco 5/325MG) 1 tab Q6H PRN PO MODERATE PAIN (4-6) 01/27/25 16:00 02/01/25 12:00 01/30/25 20:33 1 TAB Cefepime HCl (MAXipime 2 gm vial) 2 gm Q12H IVPB 01/27/25 21:30 02/17/25 21:29 01/31/25 08:42 2 GM Famotidine (Pepcid 20mg Tab) 20 mg DAILY PO 01/28/25 09:00 02/27/25 08:59 01/31/25 08:42 20 MG Fluconazole (DiFLUCan 100 mg TAB) 200 mg DAILY PO 01/31/25 09:00 03/02/25 08:59 01/31/25 08:42 200 MG Heparin Sodium (Porcine) (HEParin 5,000 UNIT VIAL) 5,000 unit Q12H SQ 01/28/25 09:00 02/27/25 08:59 01/30/25 20:31 5,000 UNIT Lactated Ringer's 1,000 ml @ 75 mls/hr [id number] IV 01/27/25 21:30 02/26/25 21:29 01/30/25 20:32 75 MLS/HR Magnesium Sulfate 50 ml @ 0 mls/hr PROTOCOL PRN IV OTHER [SEE ORDER COMMENTS] 01/27/25 20:00 02/26/25 19:59 01/31/25 08:41 25 MLS/HR Metronidazole/ Sodium Chloride (flaGYL) 500 mg Q8H IV 01/27/25 21:30 01/30/25 23:42 DC 01/30/25 22:31 500 MG Morphine Sulfate (morPHINE 2MG SYG) 1 mg Q4H PRN IVP SEVERE PAIN (7-10) 01/27/25 15:30 01/27/25 15:47 DC Norepinephrine 250 ml @ 0 mls/hr PROTOCOL IV 01/27/25 17:00 01/29/25 14:46 DC 01/27/25 17:50 26.25 MLS/HR Nystatin (NystOP 15 GM POWDER) coccyx BID TP 01/30/25 21:00 03/01/25 20:59 01/31/25 09:16 1 APPL Ondansetron HCl (zoFRAN 4MG INJ) 4 mg Q6H PRN IV NAUSEA/VOMITING 01/27/25 20:00 02/26/25 19:59 Pharmacy Profile Note (Pharmacy Communication) 1 each AD MISC 01/28/25 10:30 01/28/25 10:21 DC Piperacillin Sod/ Tazobactam Sod 50 ml @ 12.5 mls/hr Q8H IV 01/27/25 22:00 01/27/25 21:32 DC Potassium Chloride 100 ml @ 100 mls/hr AD PRN IV POTASSIUM PROTOCOL 01/27/25 20:00 02/26/25 19:59 Potassium Chloride (K-Dur/Klor-Con 20meq) 20 meq AD PRN PO POTASSIUM PROTOCOL 01/27/25 20:00 02/26/25 19:59 01/30/25 08:47 20 MEQ Potassium Chloride (KCl 10% Elixir 20meq/15ml) 20 meq AD PRN PO POTASSIUM PROTOCOL 01/27/25 20:00 02/26/25 19:59 Sodium Chloride 1,000 ml @ 100 mls/hr Q10H IV 01/27/25 20:00 01/28/25 15:59 DC 01/27/25 20:04 100 MLS/HR Vancomycin HCl 250 ml @ 125 mls/hr BID@0800,2000 IV 01/31/25 08:00 02/10/25 07:59 01/31/25 09:13 125 MLS/HR Vancomycin HCl 250 ml @ 125 mls/hr ONCE IV 01/27/25 20:00 01/27/25 20:09 DC Vancomycin HCl 250 ml @ 125 mls/hr Q24H IV 01/28/25 20:00 01/30/25 23:59 DC 01/30/25 20:34 125 MLS/HR Vancomycin HCl (Vancomycin Protocol) 1 each AD IV 01/27/25 20:30 02/10/25 20:29 Wound Care/ Dressing Products (Venelex Ointment) apply to coccyx BID TP 01/28/25 21:00 02/27/25 20:59 01/31/25 08:43 1 GM DIAGNOSTICS / RADIOLOGY: [ ] ASSESSMENT: Septic shock with recent diskitis POA Stage 2 pressure ulcer on coccyx POA Acute kidney injury POA, resolved Suspected [place] valve infective endocarditis, POA, ruled out Acute normocytic normochromic anemia POA Acute thrombocytopenia Mild hyponatremia POA Mild hypochloremia POA Lactic acidosis POA Suspected acute urinary tract infection POA, negative cultures PLAN: 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 * SOFA score of 3 on 01/28, lactic acid 3.8, bilirubin 1.4, creatinine 0.7, on norepinephrine 0.04 mcg/kg/min, platelet count of 122. * Lactic acid trend: 3.8> 2.8> 1.2>1.1>1.1, procalcitonin 16.94 (01/28/2025). * Currently on cefepime2 g q.12 (day 5), vancomycin (day 5) and fluconazole[day 1] * Continue telemetry * Infectious diseases on board follow their recommendations. * MR spine revealed Fluid signal intensity at L4-L5 level with subtle erosive changes at the inferior endplate of L4 and superior endplate of the L5 verteb ra with bone marrow edema. 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 * Continue to monitor vitals, CRP, CBC Suspected infective endocarditis of the [place] valve: * Patient's blood cultures grew Gram-positive cocci in chains and Gram-negative rods. * Gram-negative rods identified as pansensitive E coli. * Echocardiography revealed small anterior mitral valve tip vegetation versus myxomatous leaflet, Follow up with ROBERT. * ROBERT done today showed no evidence of vegetations or endocarditis and the bubble study was negative * Continue with the current antibiotic regimen. Stage II pressure ulcer on coccyx with granulation and minimal slough with mild periwound erythema and no drainage: * Patient has an open wound to the sacral area. * Wound care consulted, they recommended Venelex b.i.d. and p.r.n.. * Place the patient on a waffle mattress, keep the wounds clean and dry. * Frequent repositioning q.2 hours. * Wound culture collected, pending report. * Continue current IV antibiotic management. * Continue to serially assess the lesion. DVT prophylaxis with heparin 5000 b.i.d.. GI prophylaxis with Pepcid 20 mg p.o. daily ATTESTATION BY PHYSICIAN I have seen and examined the patient. I reviewed the documentation, medical decision making, and treatment plan as noted by the resident above. I agree with the findings and plan of care. Stewart Pulido MD, PRIYANKA MD Jan 31, 2025 11:36
--- NOTE | 2025-01-31 12:57 | PN ---
[facility] PROGRESS NOTE Date Patient Seen: Jan 31, 2025 Time of Visit: 12:54 Supervising Physician: TERRANCE SABILLON MD Primary Care Physician: [ Dr. Edgar Villela] Outpatient Specialists: [ ] Inpatient Consults: [[facility], Dr. Espinosa: ID] PROBLEM LIST: Acute sepsis with septic shock on admission Diskitis of the L4-L5 area on admission Gram-negative rods bacteremia Mitral valve endocarditis with positive vegetation 01/28/2025 2D echocardiogram Liver cirrhosis Hepatic transaminitis Atrial fibrillation Acute complicated cystitis with Enterococcus bacteria Prediabetes Primary hypertension Normocytic anemia INTERVAL HISTORY: Mr. Oreilly is resting in bed He is awake, alert, well hydrated, no acute distress. On room air. No fevers, no chills Denies chest pain Denies palpitations Back pain controlled, 05/12 Pending 2D echocardiogram REVIEW OF SYSTEMS: 12 point ROS reviewed with patient. Pertinent positives mentioned above. Otherwise negative. PHYSICAL EXAM: GENERAL: alert, awake oriented x 3 HEENT: EOMI, Sclera icteric, moist mucosa NECK: Supple, no JVD, trachea midline LUNGS: Clear breath sounds bilaterally. No wheezes HEART: Regular rate, regular rhythm. Systolic ejection murmur 3/4 ABD: Abdomen soft, nontender. Bowel sounds present EXT: No clubbing cyanosis or edema; no tenderness on vertebrae SKIN: Jaundiced, stage II pressure injury on sacrum NEURO: Alert and oriented to person, follows commands Vital Signs (last 8hr) Date Time Temp Pulse Resp B/P (MAP) Pulse Ox O2 Delivery O2 Flow Rate FiO2 01/31/25 08:00 98.6 98 18 152/86 99 Room Air LABS: Hematology Labs: Test 01/31/25 04:41 Range/Units White Blood Count 6.2 4.8-10.8 K/uL Red Blood Count 2.98 L 4.50-6.20 MIL/uL Hemoglobin 9.6 L 14.0-18.0 g/dL Hematocrit 28.0 L 42-54 % Mean Corpuscular Volume 94.0 79-99 fL Mean Corpuscular Hemoglobin 32.2 27.0-33.0 pg Mean Corpuscular Hemoglobin Concent 34.3 32.0-36.0 g/dL Red Cell Distribution Width 14.6 11.0-15.5 % Platelet Count 94 L 130-400 K/uL Mean Platelet Volume 9.0 7.5-10.5 fL Nucleated Red Blood Cells 0.0 0.0-0.19 % Chemistry Labs: Test 01/31/25 04:41 01/30/25 08:49 Range/Units Sodium Level 135 L 136-145 mmol/L Potassium Level 4.5 3.5-5.1 mmol/L Chloride Level 103 101-111 mmol/L Carbon Dioxide Level 26 21-32 mmol/L Blood Urea Nitrogen 12 7-18 mg/dL Creatinine 0.8 0.5-1.3 mg/dL Glomerular Filtration Rate Calc 93 >90 mL/min Random Glucose 85 70-105 mg/dL Lactic Acid Level 1.2 0.8-2.5 mmol/L Total Calcium 8.2 L 8.5-10.1 mg/dL Phosphorus Level 3.1 2.5-4.9 mg/dL Magnesium Level 1.80 1.80-2.40 mg/dL C-Reactive Protein, Quantitative 37.10 H 0.5-3.0 mg/L DIAGNOSTICS / RADIOLOGY RESULTS: Reviewed PLAN Still pending ROBERT continue IV antibiotics as per I&D recommendations Will sign off from case today NEURO: Minimize central acting medications as possible. Maintain fall precautions, adequate lighting during the day PULMONARY: Supplemental 02 as needed. Maintain aspiration precautions at all times CARDIOVASCULAR: Follow hemodynamics. Vital signs per facility protocol GI & NUTRITION: Continue with nutritional support. Continue stool softeners and laxatives as needed. KIDNEYS & ELECTROLYTES: Strict monitoring of intake, output and overall fluid balance. Avoid nephrotoxic medications to the extent possible. Medications to be dosed according to renal function. Monitor electrolytes and replace as needed ENDOCRINE: Maintain blood glucose between 100-180 at all times. Hypoglycemia protocol in place INFECTIOUS DISEASE: Trend temperature, WBC and procalcitonin level Follow cultures, deescalate antibiotics as soon as possible. Panculture if new onset fever ONCOLOGY/HEMATOLOGY/COAGULATION: Monitor for s/s of bleeding Monitor hemoglobin, coagulation studies as needed SKIN: Pressure ulcer prevention per facility protocol Specialty mattress ORTHO/REHAB: Continue PT/OT Prophylaxis: Continue GI and DVT prophylaxis Code Status: Full Resuscitation Disposition: as per PCP I personally scribed for TERRANCE REYNOLDS MD ([email or web address]) on 01/31/25 at 12:57. Electronically submitted by Heriberto Flood ([email or web address]). TERRANCE REYONLDS MD Jan 31, 2025 12:57
--- NOTE | 2025-01-31 17:11 | PN ---
INFECTIOUS DISEASE PROGRESS NOTE Date of Service: Jan 31, 2025 SUBJECTIVE: This is a 74-year-old male patient who was seen and examined at bedside in room 227. Patient is awake, alert and oriented x3. No fever this morning, temperature is 97.5. 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 A ROBERT done today was negative for endocarditis. We will continues on fluconazole p.o, vancomycin and cefepime. PHYSICAL EXAM EYES: Anicteric. Pupils equal and reactive. HENT: No oral thrush seen, moist Oral mucosa. NECK: Supple, no JVD or thyromegaly. LUNGS: Good air entry. No rales, no rhonchi. CARDIOVASCULAR: S1, S2 regular. No murmur heard. ABDOMEN: Soft, non tender, bowel sounds present. CENTRAL NERVOUS SYSTEM: Awake, alert, oriented x 3. SKIN: No rashes, no swelling. LYMPHATICS: No peripheral lymphadenopathy. MUSCULOSKELETAL: No joint swelling, erythema or tenderness. EXTREMITIES: No cyanosis or clubbing BACK: Stage II coccygeal ulcer. GENITOURINARY: No dysuria or hematuria Vital Sign (Last 12 Hours) 01/31/25 01/31/25 01/31/25 08:00 12:00 13:30 Temp 98.6 97.5 Pulse 98 70 Resp 18 16 B/P (MAP) 152/86 102/61 Pulse Ox 99 99 99 O2 Delivery Room Air Room Air Room Air* O2 Flow Rate 0 FiO2 21 Intake & Output (last 24hrs) 01/30/25 01/30/25 01/31/25 15:00 23:00 07:00 Intake Total 150 ml 590.0 ml Output Total 750 ml 400 ml Balance 150 ml -160.0 ml -400 ml LABS: Laboratory: Test 01/31/25 04:41 01/30/25 19:28 01/30/25 08:49 Range/Units White Blood Count 6.2 4.8-10.8 K/uL Red Blood Count 2.98 L 4.50-6.20 MIL/uL Hemoglobin 9.6 L 14.0-18.0 g/dL Hematocrit 28.0 L 42-54 % Mean Corpuscular Volume 94.0 79-99 fL Mean Corpuscular Hemoglobin 32.2 27.0-33.0 pg Mean Corpuscular Hemoglobin Concent 34.3 32.0-36.0 g/dL Red Cell Distribution Width 14.6 11.0-15.5 % Platelet Count 94 L 130-400 K/uL Mean Platelet Volume 9.0 7.5-10.5 fL Nucleated Red Blood Cells 0.0 0.0-0.19 % Sodium Level 135 L 136-145 mmol/L Potassium Level 4.5 3.5-5.1 mmol/L Chloride Level 103 101-111 mmol/L Carbon Dioxide Level 26 21-32 mmol/L Blood Urea Nitrogen 12 7-18 mg/dL Creatinine 0.8 0.5-1.3 mg/dL Glomerular Filtration Rate Calc 93 >90 mL/min Random Glucose 85 70-105 mg/dL Lactic Acid Level 1.2 0.8-2.5 mmol/L Total Calcium 8.2 L 8.5-10.1 mg/dL Phosphorus Level 3.1 2.5-4.9 mg/dL Magnesium Level 1.80 1.80-2.40 mg/dL Vancomycin Level Trough 6.2 L 10.0-20.0 UG/ML C-Reactive Protein, Quantitative 37.10 H 0.5-3.0 mg/L DIAGNOSTICS / RADIOLOGY: PATIENT: OSITO MONTEZ MR#: [id number] : 1950 SEX: M AGE: 74 LOCATION: [facility] ORDER 2300 STATUS: ADM IN REPORT#: [id number] SERVICE 0600 REASON: L4-L5 OSTEOMYELITIS ORDERING PHYSICIAN: SOFIA RAUSCH PROCEDURE: L SPN WWO - MR SPINAL CANAL, LUMB W/WO CON EXAM: MR Lumbar Spine Without Intravenous Contrast. CLINICAL HISTORY: L4-L5 osteomyelitis. TECHNIQUE: Magnetic resonance images of the lumbar spine in multiple planes. CONTRAST: 15mL Clariscan COMPARISON: None. FINDINGS: For this examination, spinal levels were labeled assuming five non-rib bearing, lumbar-type vertebrae with the inferior labeled L5. No acute fracture. Loss of lumbar lordosis. Normal vertebral body height. Mild disc desiccation and disc bulges at L3-L4 and L5-S1 level. Fluid signal intensity at L4-L5 level with subtle erosive changes at the inferior endplate of L4 and superior endplate of the L5 vertebra with bone marrow edema. Consistent with changes of discitis. Conus medullaris terminates at the T12-L1 level. No abnormal epidural masses. The surrounding soft tissues are unremarkable. Individual spinal levels are described as follows: T12-L1: No disc bulge or herniation. No neural foraminal, lateral recess or spinal canal stenosis. L1-L2: No disc bulge or herniation. No neural foraminal, lateral recess or spinal canal stenosis. L2-L3: No disc bulge or herniation. No neural foraminal, lateral recess or spinal canal stenosis. L3-L4: Disc desiccation with severe bilateral facet arthropathy and ligamentum flavum hypertrophy. Moderate narrowing of the right neural foramina and mild narrowing of the left neural foramina. Left paracentral annular tear. Mild ligamentum flavum hypertrophy. No significant lateral recess or spinal canal stenosis. L4-L5: Degenerative reduction in disc space with fluid signal intensity at the L4-L5 intervertebral disc with subtle erosive changes involving the inferior endplate of the L4 and superior endplate of the L5 vertebra. Bone marrow edema in the L4 and L5 vertebra. Consistent with changes of discitis. Minimal inflammatory collection in the prevertebral region and inflammatory phlegmon in the bilateral psoas major muscle left more than right. Minimal epidural collection. Moderate narrowing of the left lateral recess. Moderate to severe narrowing of the left neural foramina and mild to moderate narrowing of the right neural foramina. Abutment of bilateral exiting L4 and traversing L5 nerve root. Mild spinal canal stenosis. L5-S1: Disc desiccation with 4 mm right paracentral disc protrusion with small annular tear. Moderate narrowing of the bilateral neural foramina right more than left. Abutment of bilateral exiting L5 nerve root. No significant lateral recess or spinal canal stenosis. Bilateral pars defect without evidence of anterolisthesis. Occult spina bifida of the L5 vertebra. Moderate degenerative changes in the bilateral sacroiliac joints. IMPRESSION: No evidence of acute fracture or subluxation. Normal vertebral body height. Fluid signal intensity at L4-L5 level with subtle erosive changes at the inferior endplate of L4 and superior endplate of the L5 vertebra with bone marrow edema. 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 Moderate narrowing of the left lateral recess and bilateral neural foramina left more than right. Mild spinal canal stenosis. Disc desiccation with disc bulges at L4-L5 and L5-S1 level with moderate degenerative changes as described above. /[place] DICTATED BY: JANKI BELLE Jr., MD DATE: 01/31/25 0737 ASSESSMENT: E coli bacteremia. Lumbar spine osteomyelitis. Mitral valve vegetation, ruled out. Sepsis. Stage II coccygeal ulcer with Jennifer albicans infection. Urinary tract infection. Leukocytosis, resolved. Diabetes mellitus. PLAN: Continue fluconazole. Continue vancomycin per pharmacy protocol. Continue cefepime IV. Continue GI prophylaxis. Continue pain management. Continue wound care. Continue antidiabetics. This case was reviewed and discussed with my supervising physician Dr. Gandhi and the above assessment and plan was formulated and agreed upon. ATTESTATION BY PHYSICIAN I have seen and examined the patient. I reviewed the documentation, medical decision making, and treatment plan as noted by the mid-level provider above. I agree with the findings and plan of care. MAURICIO GANDHI MD, [facility] Jan 31, 2025 17:11
[2025-02-01] VITALS (10 sets, daily range): BP systolic 86–149; BP diastolic 42–88; PULSE 72–89; RESP 16; TEMP 98–98.7; O2SAT 96–99
[2025-02-01 03:49] LABS: NUCLEATED RED BLOOD CELLS 0.0 % (0.0-0.19); PLATELET COUNT (AUTO) 108.0 K/uL (130-400); RED BLOOD CELL COUNT(AUTO) 2.83 MIL/uL (4.50-6.20); RED CELL DISTRIBUTION WIDTH 14.6 % (11.0-15.5); WHITE BLOOD COUNT (AUTO) 5.3 K/uL (4.8-10.8)
[2025-02-01 04:09] LABS: CREATININE 0.7 mg/dL (0.5-1.3); GLOMERULAR FILTR. RATE CALC 97.0 mL/min (>90); GLUCOSE,RANDOM 86.0 mg/dL (70-105); SODIUM SERUM 143.0 mmol/L (136-145); UREA NITROGEN, BLOOD 11.0 mg/dL (7-18)
--- NOTE | 2025-02-01 09:28 | PN ---
[facility] CARDIOLOGY PROGRESS NOTE Date Patient Seen: Feb 01, 2025 Time of Visit: 09:27 Interval History: [No acute events overnight. The patient underwent ROBERT yesterday, no valvular vegetation was found the endocarditis was ruled out. Physical Examination: GENERAL: [No acute distress.] HEAD: [Normal with no signs of head trauma.] EYES: [PERRLA, EOMI, conjunctiva and sclera normal.] ENT: [Hearing grossly intact, normal oropharynx.] NECK: [Supple without JVD. There is no tenderness, lymphadenopathy, or masses. No thyromegaly. Normal carotid upstrokes without bruits.] LUNGS: [Clear breath sounds bilaterally. No wheezes, or rhonchi.] HEART: [Normal rate and rhythm. 2/6 holosystolic murmur.] VASC: [Peripheral pulses +2 bilaterally.] ABD: [Bowel sounds normal, soft, nontender, no masses, no organomegaly. No audible bruits.] : [Not examined] LYMPH: [No lymphadenopathy noted.] EXT: [No clubbing, cyanosis or edema.] SKIN: [No rashes or lesions noted.] NEURO: [Awake, alert, and oriented x3. No focal sensory or strength deficits noted.] Laboratory: [ ] Hematology Labs: Test 02/01/25 03:25 Range/Units White Blood Count 5.3 4.8-10.8 K/uL Red Blood Count 2.83 L 4.50-6.20 MIL/uL Hemoglobin 9.1 L 14.0-18.0 g/dL Hematocrit 26.5 L 42-54 % Mean Corpuscular Volume 93.6 79-99 fL Mean Corpuscular Hemoglobin 32.2 27.0-33.0 pg Mean Corpuscular Hemoglobin Concent 34.3 32.0-36.0 g/dL Red Cell Distribution Width 14.6 11.0-15.5 % Platelet Count 108 L 130-400 K/uL Mean Platelet Volume 9.2 7.5-10.5 fL Nucleated Red Blood Cells 0.0 0.0-0.19 % Chemistry Labs: Test 02/01/25 07:15 02/01/25 03:25 01/31/25 04:41 Range/Units Magnesium Level 2.00 1.80-2.40 mg/dL Sodium Level 143 136-145 mmol/L Potassium Level 3.8 3.5-5.1 mmol/L Chloride Level 110 101-111 mmol/L Carbon Dioxide Level 28 21-32 mmol/L Blood Urea Nitrogen 11 7-18 mg/dL Creatinine 0.7 0.5-1.3 mg/dL Glomerular Filtration Rate Calc 97 >90 mL/min Random Glucose 86 70-105 mg/dL Total Calcium 8.4 L 8.5-10.1 mg/dL C-Reactive Protein, Quantitative 50.90 H 0.5-3.0 mg/L Lactic Acid Level 1.2 0.8-2.5 mmol/L Phosphorus Level 3.1 2.5-4.9 mg/dL Diagnostics / Radiology: [Copy/Paste Echos/Imaging Report here] Impression and Plan: [Acute sepsis with septic shock on admission Diskitis of the L4-L5 area on admission Gram-negative rods bacteremia ROBERT with no evidence of endocarditis negative bubble study done on 01/31/2025 Liver cirrhosis Hepatic transaminitis Atrial fibrillation Acute complicated cystitis with Enterococcus bacteria Prediabetes Primary hypertension Normocytic anemia ] #bacteremia with E coli Possible mitral valve vegetation 01/28/2025 2D echocardiogram ROBERT 01/31/2025 at the bedside, no evidence of vegetation was found, no evidence of endocarditis with negative bubble study, no postprocedure complications Recommend continue IV antibiotics No need for further invasive procedures from the cardiology standpoint Thank you for this consult cardiology will sign off at this time follow up in cardiology clinic 1-2 weeks after discharge Edmundo alvarenga MD ATTESTATION BY PHYSICIAN I have seen and examined the patient, reviewed the above documentation, participated in medical decision making, made necessary modifications, and agree with the treatment plan as documented by my mid-level provider above. MD LAWRENCE Hanna JAMES R MD Feb 01, 2025 09:28
[2025-02-01] MEDS: AMPICILLIN 2GM+NS 100ML IV SCH (12:43)
--- NOTE | 2025-02-01 12:48 | PN ---
[facility] PROGRESS NOTE Date of Service: Feb 01, 2025 Time of Service: 12:48 SUBJECTIVE: This is a 74-year-old male past medical history of hypertension, diabetes, hyperlipidemia ,UTI due to Ecoli and obesity with past surgical history of right colectomy and polyps removal who was brought by EMS to the ED for complaints of fever and generalized body weakness.Patient was recently admitted in this facility for septic shock and was treated with ABT for E coli and was receiving IV ABT as outpatient managed by as per patient .Patient reports he was also recently admitted in [facility] and was diagnosed with Diskitis and was discharged yesterday and came back here.Today he started having fever so he decided to come to the ED for evaluation.Upon ER arrival patient V/S was T99.5,HR 119,BP 70/42 and Sat 96% RA. Seen and examined patient in the ER awake,alert and coherent,states he feels much better now than when he came in he said.On further evaluation ,patient has an open wound to sacral area,and patient reports he has been having it since he was discharge home.Patient is also on Levophed drip.Patient denies,nausea,vomiting,chest pain,palpitation,cough and shortness of breath. Latest vital signs heart rate 67, blood pressure 90/50 saturation 99% on room air. Labs: WBC 13 with negative left shift of neutrophils 89, hemoglobin 10, hematocrit 29, platelet count 122. Sodium 132, chloride 100, BUN 34, lactic acid 3.8-2.8 troponin 41. Urinalysis significant for urine bilirubin small, urine urobilinogen two, small esterase, urine WBC 6-10. While in the ER patient received vancomycin 1 g IV, Zosyn 3.375 IV, Tylenol 1000 mg p.o. and fluid r esuscitation of NS 30 mL/kilogram over 3 hours and morphine 1 mg IV. We will admit patient for further medical management. 01/28: Patient was seen and evaluated at bedside in room 207. He was awake, alert, and oriented 3, sitting comfortably in his chair during the encounter. He denies dizziness, generalized weakness, chest pain, shortness of breath, n ausea, vomiting, or other acute complaints today. He states he is relieved that his blood pressure has been improving. He remains on norepinephrine at 0.04 mcg/kg/hr. A 2D echocardiogram obtained today revealed suspicious vegetations on the mitral valve; cardiology has been consulted and evaluation is pending. Infectious Diseases has also evaluated the patient and recommended continuing vancomycin, ceftriaxone, and metronidazole (Flagyl). Blood cultures have grown gram-positive cocci in chains; final organism identification and sensitivities are pending. The patient is also pending MRI, but current pressor support is not MRI-compatible. He will require weaning off norepinephrine prior to being transported safely for imaging. He denies any new symptoms today and remains hemodynamically stable aside from ongoing vasopressor requirement. 01/29: Patient was seen and evaluated at bedside in room 207. He was awake, alert, and oriented 3. He reports feeling much better today and denies any active complaints, including chest pain, shortness of breath, dizziness, nausea, or abdominal discomfort. He is now off vasopressors and maintaining stable blood pressure around 110/70, and will be downgraded to PCCU today. Infectious Diseases has recommended a transesophageal echocardiogram (ROBERT) to further evaluate for infective endocarditis; this is currently pending. Cardiology has been consulted for management of suspected endocarditis, and their evaluation is pending as well. He remains on vancomycin, and ceftriaxone was discontinued today. Identification and sensitivities of the bacteremia are still pending. Patient has no additional concerns at this time, and all questions were addressed. 01/30: Patient was seen and evaluated at bedside in room 2. He was awake, alert, and oriented x3. patient continues to do well and denies any active complaints today. Cardiology evaluated the patient and recommended a ROBERT tomorrow to further evaluate the mitral valve vegetation seen on the ROBERT. Patient was informed that his code status will have to be changed to full code for ROBERT, and he verbalized understanding and is in agreement with proceeding to ROBERT. He continues on vancomycin (day 3). Case management has been trying to get the patient placed on a jail facility as the patient was rejected at [facility]. One of his blood cultures grew E coli which was pansensitive. We are still pending the ID and susceptibility of the Gram-positive cocci seen on the other blood culture. Repeat blood cultures were sent today, follow up with the results. Patient is still pending MRI of the spine to evaluate his osteomyelitis, follow up with Radiology. Patient has no other concerns, and all questions were addressed. 01/31/2025 Patient is seen and examined at the bedside today. Vital signs remained stable with blood pressure in 100s/60s, heart rate in 70s, oxygen saturation greater than 95% on room air. He has been afebrile. No acute events last night. He reports feeling well and denies fever, chills, chest pain, palpitations, abdominal pain or diarrhea or any new symptoms. He underwent a ROBERT today which showed no evidence of vegetations or endocarditis and the bubble study was negative. He remains on fluconazole, vancomycin and cefepime. Labs WBC 6.2, hemoglobin 9.6, BNP unremarkable, CRP trended down from 60.90 to 37. We will continue to monitor his clinical status. 02/01/2025: The patient was seen and evaluated at bedside in room 227. He was awake, alert, and oriented x3. he reports feeling well today with no new symptoms. He denies shortness of breath, chest pain, palpitations, lightheadedness, generalized weakness, fevers, or any symptoms concerning for ongoing sepsis. He does report constipation, stating that his last bowel movement was2 days ago and he would like some medication for relief; however, he prefers to receive treatment after physical therapy works with him today. A ROBERT was negative for endocarditis. 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 He is currently receiving IV antibiotics, and IV fluconazole was added due to Jennifer albicans growth from his sacral ulcer. His 1st blood culture returned positive for pansensitive E coli; repeat blood cultures are negative so far. He is pending placement for an LTAC, awaiting insurance authorization. The patient remains hemodynamically stable and has no additional complaints at this time. REVIEW OF SYSTEMS CONSTITUTIONAL: Denies night sweats. No unintentional weight loss reported. NEUROLOGICAL: Denies headache, amaurosis fugax,sensory deficit, vertigo/spinning sensation, gait abnormalities, or tremors. ENT: No hearing loss, otalgia, otorrhea, rhinitis, rhinorrhea, hoarseness, or sore throat. CARDIOVASCULAR: Denies any exertional angina, dyspnea on exertion, orthopnea, paroxysmal nocturnal dyspnea, palpitations, life-threatening arrhythmias, claudication. PULMONARY: Denies any shortness of breath, cough, phlegm/sputum, hemoptysis, pleuritic chest pain. SLEEP: Denies morning headaches, daytime somnolence or napping. Denies difficulty falling asleep, staying asleep, waking from sleep. Denies knowledge of snoring. GASTROINTESTINAL: Denies any type of dysphagia to either liquids or solids. Denies nausea, vomiting, pyrosis, early satiety, abdominal pain, diarrhea, constipation, or changes in stool consistency or caliber. Denies coffee-ground emesis, hematemesis, hematochezia, or melanotic stools. GENITOURINARY: Denies frequency, urgency, nocturia, hematuria or incontinence ENDOCRINOLOGIC: Denies polyuria, polydipsia, polyphagia or heat/cold intolera nces. HEMATOLOGIC: Denies thrombophilia/previous clots, or coagulopathy/bleeding disorders. ONCOLOGIC: Denies personal history of malignancy. DERMATOLOGIC: Denies rashes or pruritus. PSYCHIATRIC: Denies any suicidal or homicidal ideation. Denies hallucinations. PHYSICAL EXAM GENERAL APPEARANCE: The patient is awake, alert, and oriented, in no acute cardiopulmonary distress. NEUROLOGICAL: Cranial nerves II-XII grossly intact. Motor is 5/5 in bilateral upper and lower extremities proximal to distal. No sensory deficits. HEENT: Face is symmetric. Pupils are equal and reactive. Extraocular movements are intact. NECK: Supple. No JVD. No thyromegaly. No submental, submandibular, pre- /postauricular, occipital or supraclavicular lymphadenopathy. CHEST: Normal chest expansion. No Telemetry. LUNGS: Absence of any rales, rhonchi or any wheezing. CARDIOVASCULAR: Regular. S1 and S2 normal. No appreciable rubs, murmurs or gallops. ABDOMEN: Soft, nontender, and nondistended. There is no rebound, voluntary guarding, or rigidity. : Deferred. No Mariano. EXTREMITIES: Non-edematous and not cyanotic. No clubbing. Good capillary refill. SKIN: open wound to sacral area Vital Signs (last 8hr) Date Time Temp Pulse Resp B/P (MAP) Pulse Ox O2 Delivery O2 Flow Rate FiO2 02/01/25 12:00 98.2 81 16 126/68 99 Room Air 21 02/01/25 11:16 99 Room Air* 0 21 02/01/25 07:57 98.1 72 16 122/59 98 Room Air 21 LABS: Laboratory: Test 02/01/25 07:15 02/01/25 03:25 01/31/25 04:41 Range/Units Magnesium Level 2.00 1.80-2.40 mg/dL Vancomycin Level Trough 14.7 # 10.0-20.0 UG/ML White Blood Count 5.3 4.8-10.8 K/uL Red Blood Count 2.83 L 4.50-6.20 MIL/uL Hemoglobin 9.1 L 14.0-18.0 g/dL Hematocrit 26.5 L 42-54 % Mean Corpuscular Volume 93.6 79-99 fL Mean Corpuscular Hemoglobin 32.2 27.0-33.0 pg Mean Corpuscular Hemoglobin Concent 34.3 32.0-36.0 g/dL Red Cell Distribution Width 14.6 11.0-15.5 % Platelet Count 108 L 130-400 K/uL Mean Platelet Volume 9.2 7.5-10.5 fL Nucleated Red Blood Cells 0.0 0.0-0.19 % Sodium Level 143 136-145 mmol/L Potassium Level 3.8 3.5-5.1 mmol/L Chloride Level 110 101-111 mmol/L Carbon Dioxide Level 28 21-32 mmol/L Blood Urea Nitrogen 11 7-18 mg/dL Creatinine 0.7 0.5-1.3 mg/dL Glomerular Filtration Rate Calc 97 >90 mL/min Random Glucose 86 70-105 mg/dL Total Calcium 8.4 L 8.5-10.1 mg/dL C-Reactive Protein, Quantitative 50.90 H 0.5-3.0 mg/L Lactic Acid Level 1.2 0.8-2.5 mmol/L Phosphorus Level 3.1 2.5-4.9 mg/dL Current Medications Medications (Trade) Dose Ordered Sig/Panchito Route PRN Reason Start Time Stop Time Status Last Admin Dose Admin Acetaminophen (TYLenol 325MG TAB) 650 mg Q4H PRN PO MILD PAIN (1-3) 01/27/25 20:00 02/26/25 19:59 Acetaminophen (TYLenol 325MG TAB) 650 mg Q6H PRN PO TEMPERATURE GREATER THAN 101.5 01/27/25 20:00 02/26/25 19:59 Acetaminophen/ Hydrocodone Bitart (NORco 5/325MG) 1 tab Q6H PRN PO MODERATE PAIN (4-6) 01/27/25 16:00 02/01/25 12:00 DC 01/31/25 20:35 1 TAB Ampicillin Sodium (Ampicillin 2gm+NS 100ml) 2 gm Q6H IV 02/01/25 12:00 02/22/25 11:59 02/01/25 12:43 2 GM Cefepime HCl (MAXipime 2 gm vial) 2 gm Q12H IVPB 01/27/25 21:30 02/01/25 11:42 DC 02/01/25 09:34 2 GM Ceftriaxone Sodium (Rocephin 2gm Inj) 2 gm Q12H IVPB 02/01/25 12:00 02/11/25 11:59 02/01/25 12:43 2 GM Famotidine (Pepcid 20mg Tab) 20 mg DAILY PO 01/28/25 09:00 02/27/25 08:59 02/01/25 09:35 20 MG Fluconazole (DiFLUCan 100 mg TAB) 200 mg DAILY PO 01/31/25 09:00 03/02/25 08:59 02/01/25 09:35 200 MG Heparin Sodium (Porcine) (HEParin 5,000 UNIT VIAL) 5,000 unit Q12H SQ 01/28/25 09:00 02/27/25 08:59 02/01/25 09:37 5,000 UNIT Lactated Ringer's 1,000 ml @ 75 mls/hr [id number] IV 01/27/25 21:30 02/26/25 21:29 01/31/25 22:11 75 MLS/HR Magnesium Sulfate 50 ml @ 0 mls/hr PROTOCOL PRN IV OTHER [SEE ORDER COMMENTS] 01/27/25 20:00 02/26/25 19:59 01/31/25 08:41 25 MLS/HR Metronidazole/ Sodium Chloride (flaGYL) 500 mg Q8H IV 01/27/25 21:30 01/30/25 23:42 DC 01/30/25 22:31 500 MG Morphine Sulfate (morPHINE 2MG SYG) 1 mg Q4H PRN IVP SEVERE PAIN (7-10) 01/27/25 15:30 01/27/25 15:47 DC Norepinephrine 250 ml @ 0 mls/hr PROTOCOL IV 01/27/25 17:00 01/29/25 14:46 DC 01/27/25 17:50 26.25 MLS/HR Nystatin (NystOP 15 GM POWDER) coccyx BID TP 01/30/25 21:00 03/01/25 20:59 02/01/25 09:38 1 APPL Ondansetron HCl (zoFRAN 4MG INJ) 4 mg Q6H PRN IV NAUSEA/VOMITING 01/27/25 20:00 02/26/25 19:59 Pharmacy Profile Note (Pharmacy Communication) 1 each AD MISC 01/28/25 10:30 01/28/25 10:21 DC Piperacillin Sod/ Tazobactam Sod 50 ml @ 12.5 mls/hr Q8H IV 01/27/25 22:00 01/27/25 21:32 DC Potassium Chloride 100 ml @ 100 mls/hr AD PRN IV POTASSIUM PROTOCOL 01/27/25 20:00 02/26/25 19:59 Potassium Chloride (K-Dur/Klor-Con 20meq) 20 meq AD PRN PO POTASSIUM PROTOCOL 01/27/25 20:00 02/26/25 19:59 02/01/25 09:35 20 MEQ Potassium Chloride (KCl 10% Elixir 20meq/15ml) 20 meq AD PRN PO POTASSIUM PROTOCOL 01/27/25 20:00 02/26/25 19:59 Sodium Chloride 1,000 ml @ 100 mls/hr Q10H IV 01/27/25 20:00 01/28/25 15:59 DC 01/27/25 20:04 100 MLS/HR Vancomycin HCl 250 ml @ 125 mls/hr BID@0800,2000 IV 01/31/25 08:00 02/01/25 11:42 DC 02/01/25 09:34 125 MLS/HR Vancomycin HCl 250 ml @ 125 mls/hr ONCE IV 01/27/25 20:00 01/27/25 20:09 DC Vancomycin HCl 250 ml @ 125 mls/hr Q24H IV 01/28/25 20:00 01/30/25 23:59 DC 01/30/25 20:34 125 MLS/HR Vancomycin HCl (Vancomycin Protocol) 1 each AD IV 01/27/25 20:30 02/01/25 11:42 DC Wound Care/ Dressing Products (Venelex Ointment) apply to coccyx BID TP 01/28/25 21:00 02/27/25 20:59 02/01/25 09:38 1 GM DI[facility]NOST[facility] / RADIOLOGY: [place] [id number] [place] [address] IMAGING REPORT Signed PATIENT: OSITO MONTEZ MR#: [id number] : 1950 SEX: M AGE: 74 LOCATION: 2DH ORDER 2300 STATUS: ADM IN REPORT#: [id number] SERVICE 0600 REASON: L4-L5 OSTEOMYELITIS ORDERING PHYSICIAN: SOFIA RAUSCH PROCEDURE: L SPN WWO - MR SPINAL CANAL, LUMB W/WO CON EXAM: MR Lumbar Spine Without Intravenous Contrast. CLINICAL HISTORY: L4-L5 osteomyelitis. TECHNIQUE: Magnetic resonance images of the lumbar spine in multiple planes. CONTRAST: 15mL Clariscan COMPARISON: None. FINDINGS: For this examination, spinal levels were labeled assuming five non-rib bearing, lumbar-type vertebrae with the inferior labeled L5. No acute fracture. Loss of lumbar lordosis. Normal vertebral body height. Mild disc desiccation and disc bulges at L3-L4 and L5-S1 level. Fluid signal intensity at L4-L5 level with subtle erosive changes at the inferior endplate of L4 and superior endplate of the L5 vertebra with bone marrow edema. Consistent with changes of discitis. Conus medullaris terminates at the T12-L1 level. No abnormal epidural masses. The surrounding soft tissues are unremarkable. Individual spinal levels are described as follows: T12-L1: No disc bulge or herniation. No neural foraminal, lateral recess or spinal canal stenosis. L1-L2: No disc bulge or herniation. No neural foraminal, lateral recess or spinal canal stenosis. L2-L3: No disc bulge or herniation. No neural foraminal, lateral recess or spinal canal stenosis. L3-L4: Disc desiccation with severe bilateral facet arthropathy and ligamentum flavum hypertrophy. Moderate narrowing of the right neural foramina and mild narrowing of the left neural foramina. Left paracentral annular tear. Mild ligamentum flavum hypertrophy. No significant lateral recess or spinal canal stenosis. L4-L5: Degenerative reduction in disc space with fluid signal intensity at the L4-L5 intervertebral disc with subtle erosive changes involving the inferior endplate of the L4 and superior endplate of the L5 vertebra. Bone marrow edema in the L4 and L5 vertebra. Consistent with changes of discitis. Minimal inflammatory collection in the prevertebral region and inflammatory phlegmon in the bilateral psoas major muscle left more than right. Minimal epidural collection. Moderate narrowing of the left lateral recess. Moderate to severe narrowing of the left neural foramina and mild to moderate narrowing of the right neural foramina. Abutment of bilateral exiting L4 and traversing L5 nerve root. Mild spinal canal stenosis. L5-S1: Disc desiccation with 4 mm right paracentral disc protrusion with small annular tear. Moderate narrowing of the bilateral neural foramina right more than left. Abutment of bilateral exiting L5 nerve root. No significant lateral recess or spinal canal stenosis. Bilateral pars defect without evidence of anterolisthesis. Occult spina bifida of the L5 vertebra. Moderate degenerative changes in the bilateral sacroiliac joints. IMPRESSION: No evidence of acute fracture or subluxation. Normal vertebral body height. Fluid signal intensity at L4-L5 level with subtle erosive changes at the inferior endplate of L4 and superior endplate of the L5 vertebra with bone marrow edema. 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 Moderate narrowing of the left lateral recess and bilateral neural foramina left more than right. Mild spinal canal stenosis. Disc desiccation with disc bulges at L4-L5 and L5-S1 level with moderate degenerative changes as described above. /[place] DICTATED BY: JANKI BELLE Jr., MD DATE: 01/31/25736 ELECTRONICALLY SIGNED BY: JANKI BELLE Jr., MD DATE: 01/31/25736 [place] [address] [id number] IMAGING REPORT Signed PATIENT: OSITO MONTEZ MR#: [id number] : 1950 SEX: M AGE: 74 LOCATION: 2D ORDER 99 STATUS: ADM IN REPORT#: [id number] SERVICE 0600 REASON: chf ORDERING PHYSICIAN: JOSEPHINE AMEZCUA MD PROCEDURE: CXR1VW - CHEST 1VW EXAM: CR Chest, 1 View. CLINICAL HISTORY: CHF COMPARISON: 01/29/2025 FINDINGS: LUNGS: The lungs show no infiltrate or other acute finding. PLEURAL SPACES: No evidence of pleural effusion or pneumothorax. MEDIASTINUM: The cardiomediastinal silhouette is within normal limits. BONES: No aggressive appearing osseous lesion seen. IMPRESSION: No acute cardiopulmonary pathology is evident. No adverse interval changes. /[place] DICTATED BY: JANKI BELLE Jr., MD DATE: 01/31/25 1037 ELECTRONICALLY SIGNED BY: JANKI BELLE Jr., MD DATE: 01/31/25 1037 ASSESSMENT: Septic shock with recent diskitis POA Stage 2 pressure ulcer on coccyx POA Acute kidney injury POA, resolved Suspected [place] valve infective endocarditis, POA, ruled out Acute normocytic normochromic anemia POA Acute thrombocytopenia Mild hyponatremia POA Mild hypochloremia POA Lactic acidosis POA Suspected acute urinary tract infection POA, negative cultures PLAN: 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 * SOFA score of 3 on 01/28, lactic acid 3.8, bilirubin 1.4, creatinine 0.7, on norepinephrine 0.04 mcg/kg/min, platelet count of 122. * Lactic acid trend: 3.8> 2.8> 1.2>1.1>1.1, procalcitonin 16.94 (01/28/2025). * Discontinued cefepime2 g q.12 (day 5), vancomycin (day 5) today, and started the patient on ampicillin 2g IV(day 0), ceftriaxone 2g IV (day 0) fluconazole[day 1] * Continue telemetry * Infectious diseases on board follow their recommendations. * MR spine revealed Fluid signal intensity at L4-L5 level with subtle erosive changes at the inferior endplate of L4 and superior endplate of the L5 vertebra with bone marrow edema. 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 * Continue to monitor vitals, CRP, CBC Suspected infective endocarditis of the s[place]qual[place] valve: * Patient's blood cultures grew Gram-positive cocci in chains and Gram-negative rods. * Gram-negative rods identified as pansensitive E coli. * Echocardiography revealed small anterior mitral valve tip vegetation versus myxomatous leaflet, Follow up with ROBERT. * ROBERT done today showed no evidence of vegetations or endocarditis and the bubble study was negative * Continue with the current antibiotic regimen. Stage II pressure ulcer on coccyx with granulation and minimal slough with mild periwound erythema and no drainage: * Patient has an open wound to the sacral area. * Wound care consulted, they recommended Venelex b.i.d. and p.r.n.. * Place the patient on a waffle mattress, keep the wounds clean and dry. * Frequent repositioning q.2 hours. * Wound culture positive for Enterococcus faecalis sensitive to ampicillin, gentamicin, penicillin, vancomycin and Jennifer albicans. * Continue current IV antibiotic management (see above). * Continue to serially assess the lesion. DVT prophylaxis with heparin 5000 b.i.d.. GI prophylaxis with Pepcid 20 mg p.o. daily ATTESTATION BY PHYSICIAN I have seen and examined the patient. I reviewed the documentation, medical decision making, and treatment plan as noted by the resident provider above. I agree with the findings and plan of care. Stewart Pulido MD, HEMA MD Feb 01, 2025 12:48
--- NOTE | 2025-02-01 14:08 | NUR ---
CASSI/JEANNA Met w pt this afternoon to discuss Md recommendations for LTAC @ [facility]. Pt in agreement. ARLINE/PC obtained for [facility]. Informed pt would be pending ins approval. Referral/Clinical faxed. Jacey notified of new referral.
[2025-02-01 14:34] LABS: INR 1.19 (0.85-1.15)
[2025-02-01] MEDS: LACTULOSE 20 GM/30 ML UDCUP PO ONE (17:10)
--- NOTE | 2025-02-01 18:55 | HMCIMG ---
EXAM: CR Chest, 1 View. CLINICAL HISTORY: PICC LINE PLACEMENT COMPARISON: None provided. FINDINGS: Right PICC terminates at the distal SVC. LUNGS: The lungs show no infiltrate or other acute finding. PLEURAL SPACES: No evidence of pleural effusion or pneumothorax. MEDIASTINUM: The cardiomediastinal silhouette is within normal limits. BONES: No aggressive appearing osseous lesion seen. IMPRESSION: No acute cardiopulmonary pathology is evident. /[place]
[2025-02-01] MEDS: LACTULOSE 20 GM/30 ML UDCUP PO PRN (21:31)
[2025-02-02] VITALS (8 sets, daily range): BP systolic 129–160; BP diastolic 61–77; PULSE 76–85; RESP 16–18; TEMP 97.9–98.6; O2SAT 96
[2025-02-02 04:02] LABS: IMMATURE GRANULOCYTE ABSOLUTE 0.03 K/uL (0-1); NUCLEATED RED BLOOD CELLS 0.0 % (0.0-0.19); PLATELET COUNT (AUTO) 117 K/uL (130-400); RED BLOOD CELL COUNT(AUTO) 3.01 MIL/uL (4.50-6.20); RED CELL DISTRIBUTION WIDTH 15.1 % (11.0-15.5); WHITE BLOOD COUNT (AUTO) 5.9 K/uL (4.8-10.8)
[2025-02-02 04:16] LABS: ASPARTATE AMINOTRANSFERASE 36.0 U/L (10-37); CREATININE 0.7 mg/dL (0.5-1.3); GLOMERULAR FILTR. RATE CALC 97.0 mL/min (>90); GLUCOSE,RANDOM 102.0 mg/dL (70-105); SODIUM SERUM 143.0 mmol/L (136-145); TOTAL PROTEIN, SERUM 6.5 g/dL (6.0-8.3); UREA NITROGEN, BLOOD 10.0 mg/dL (7-18)
--- NOTE | 2025-02-02 06:00 | HMCIMG ---
EXAM: CR Abdomen, 1 view. CLINICAL HISTORY: Bilateral lower quadrant pain. COMPARISON: None provided. FINDINGS: Fecal impaction in the distal sigmoid colon and rectum. Nonobstructed nonspecific bowel gas pattern. No free air is evident. No abnormal calcification. No aggressive appearing osseous lesion. Degenerative changes in the bilateral medial hip joint and multilevel degenerative facet arthropathy in the lumbar spine. IMPRESSION: No acute process. Nonobstructive bowel gas pattern. Fecal impaction in the distal sigmoid colon and rectum. /[place]
--- NOTE | 2025-02-02 09:34 | PN ---
INFECTIOUS DISEASE FOLLOWUP NOTE DATE OF SERVICE: 02/01/2025 SUBJECTIVE: The patient is seen and examined at bedside today. No fever. No chills. No nausea. No vomiting. No abdominal pain. No bleeding tendency. No palpitations or orthopnea. ____. PHYSICAL EXAMINATION: VITAL SIGNS: Temperature ____. EYES: No icterus. Pupils are equal and reactive. HENT: No oral thrush seen. Moist oral mucosa. NECK: Supple. No JVD or thyromegaly. LUNGS: Good air entry. No rales. No rhonchi. CARDIOVASCULAR: S1 and S2, regular. No murmur heard. ABDOMEN: Full, soft, nontender. Bowel sounds present. CENTRAL NERVOUS SYSTEM: Awake, alert, and oriented x3. No focal deficits. SKIN: No rashes. LYMPHATIC: No peripheral lymphadenopathy. BACK: No deformity. Stage 2 sacrococcygeal ulcer. MUSCULOSKELETAL: No joint swelling, erythema, or tenderness. ASSESSMENT: A 74-year-old male with multiple problems which include, * E. coli bacteremia and sepsis. * Recent Enterococcus faecalis bacteremia. * Urinary tract infection. * Lumbar spine diskectomy and osteomyelitis. * Sacrococcygeal ulcer. * Debility. PLAN: * Continue wound care. * Start the patient on ampicillin. * Start the patient on ceftriaxone. * Continue pain management. * Continue DVT prophylaxis. * Monitor electrolytes. * Continue pain management. TID: [id number] RECEIPT: [id number]
[2025-02-02] MEDS: LACTULOSE 20 GM/30 ML UDCUP PO SCH (09:50)
[2025-02-02] MEDS: MINERAL OIL 30 ML UDCUP PR ONE (09:50)
--- NOTE | 2025-02-02 11:50 | NUR ---
MINERAL OIL ENEMA MINERAL OIL ENEMA GIVEN TO PATIENT. PATIENT HAD 3-4 BMS OF HARD STOOL. PATIENT PASSING LARGE AMOUNT OF GAS. PATIENT STATES FEELS BETTER.
--- NOTE | 2025-02-02 13:12 | PN ---
[facility] PROGRESS NOTE Date of Service: Feb 02, 2025 Time of Service: 13:04 SUBJECTIVE: This is a 74-year-old male past medical history of hypertension, diabetes, hyperlipidemia ,UTI due to Ecoli and obesity with past surgical history of right colectomy and polyps removal who was brought by EMS to the ED for complaints of fever and generalized body weakness.Patient was recently admitted in this facility for septic shock and was treated with ABT for E coli and was receiving IV ABT as outpatient managed by as per patient .Patient reports he was also recently admitted in [place] and was diagnosed with Diskitis and was discharged yesterday and came back here.Today he started having fever so he decided to come to the ED for evaluation.Upon ER arrival patient V/S was T99.5,HR 119,BP 70/42 and Sat 96% RA. Seen and examined patient in the ER awake,alert and coherent,states he feels much better now than when he came in he said.On further evaluation ,patient has an open wound to sacral area,and patient reports he has been having it since he was discharge home.Patient is also on Levophed drip.Patient denies,nausea,vomiting,chest pain,palpitation,cough and shortness of breath. Latest vital signs heart rate 67, blood pressure 90/50 saturation 99% on room air. Labs: WBC 13 with negative left shift of neutrophils 89, hemoglobin 10, hematocrit 29, platelet count 122. Sodium 132, chloride 100, BUN 34, lactic acid 3.8-2.8 troponin 41. Urinalysis significant for urine bilirubin small, urine urobilinogen two, small esterase, urine WBC 6-10. While in the ER patient received vancomycin 1 g IV, Zosyn 3.375 IV, Tylenol 1000 mg p.o. and fluid re suscitation of NS 30 mL/kilogram over 3 hours and morphine 1 mg IV. We will admit patient for further medical management. 01/28: Patient was seen and evaluated at bedside in room 207. He was awake, alert, and oriented 3, sitting comfortably in his chair during the encounter. He denies dizziness, generalized weakness, chest pain, shortness of breath, na usea, vomiting, or other acute complaints today. He states he is relieved that his blood pressure has been improving. He remains on norepinephrine at 0.04 mcg/kg/hr. A 2D echocardiogram obtained today revealed suspicious vegetations on the mitral valve; cardiology has been consulted and evaluation is pending. Infectious Diseases has also evaluated the patient and recommended continuing vancomycin, ceftriaxone, and metronidazole (Flagyl). Blood cultures have grown gram-positive cocci in chains; final organism identification and sensitivities are pending. The patient is also pending MRI, but current pressor support is not MRI-compatible. He will require weaning off norepinephrine prior to being transported safely for imaging. He denies any new symptoms today and remains hemodynamically stable aside from ongoing vasopressor requirement. 01/29: Patient was seen and evaluated at bedside in room 207. He was awake, a lert, and oriented 3. He reports feeling much better today and denies any active complaints, including chest pain, shortness of breath, dizziness, nausea, or abdominal discomfort. He is now off vasopressors and maintaining stable blood pressure around 110/70, and will be downgraded to PCCU today. Infectious Diseases has recommended a transesophageal echocardiogram (ROBERT) to further evaluate for infective endocarditis; this is currently pending. Cardiology has been consulted for management of suspected endocarditis, and their evaluation is pending as well. He remains on vancomycin, and ceftriaxone was discontinued today. Identification and sensitivities of the bacteremia are still pending. Patient has no additional concerns at this time, and all questions were addressed. 01/30: Patient was seen and evaluated at bedside in room 2. He was awake, alert, and oriented x3. patient continues to do well and denies any active complaints today. Cardiology evaluated the patient and recommended a ROBERT tomorrow to further evaluate the mitral valve vegetation seen on the ROBERT. Patient was informed that his code status will have to be changed to full code for ROBERT, and he verbalized understanding and is in agreement with proceeding to ROBERT. He continues on vancomycin (day 3). Case management has been trying to get the patient placed on a retirement facility as the patient was rejected at [facility]. One of his blood cultures grew E coli which was pansensitive. We are still pending the ID and susceptibility of the Gram-positive cocci seen on the other blood culture. Repeat blood cultures were sent today, follow up with the results. Patient is still pending MRI of the spine to evaluate his osteomyelitis, follow up with Radiology. Patient has no other concerns, and all questions were addressed. 01/31/2025 Patient is seen and examined at the bedside today. Vital signs remained stable with blood pressure in 100s/60s, heart rate in 70s, oxygen saturation greater t crane 95% on room air. He has been afebrile. No acute events last night. He reports feeling well and denies fever, chills, chest pain, palpitations, abdominal pain or diarrhea or any new symptoms. He underwent a ROBERT today which showed no evidence of vegetations or endocarditis and the bubble study was negative. He remains on fluconazole, vancomycin and cefepime. Labs WBC 6.2, hemoglobin 9.6, BNP unremarkable, CRP trended down from 60.90 to 37. We will continue to monitor his clinical status. 02/01/2025: The patient was seen and evaluated at bedside in room 227. He was awake, alert, and oriented x3. he reports feeling well today with no new symptoms. He denies shortness of breath, chest pain, palpitations, lightheadedness, generalized weakness, fevers, or any symptoms concerning for ongoing sepsis. He does report constipation, stating that his last bowel movement was2 days ago and he would like some medication for relief; however, he prefers to receive treatment after physical therapy works with him today. A ROBERT was negative for endocarditis. 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 He is currently receiving IV antibiotics, and IV fluconazole was added due to Jennifer albicans growth from his sacral ulcer. His 1st blood culture returned positive for pansensitive E coli; repeat blood cultures are negative so far. He is pending placement for an LTAC, awaiting insurance authorization. The patient remains hemodynamically stable and has no additional complaints at this time. 02.02.2025: The patient was seen and evaluated at bedside in room 227. He was awake, alert, and oriented x3. The patient reports abdominal pain and has not had a bowel movement for the past several days. He was started on lactulose BID yesterday but has not yet had a bowel movement. Abdominal X-ray demonstrates fecal impaction in the distal sigmoid colon and rectum. A mineral oil enema has been ordered. The patient is pending LTAC placement and Infectious Disease recommendations for a minimal anterior epidural abscess. He is currently receiving ampicillin and ceftriaxone. REVIEW OF SYSTEMS CONSTITUTIONAL: Denies night sweats. No unintentional weight loss reported. NEUROLOGICAL: Denies headache, amaurosis fugax,sensory deficit, vertigo/spinning sensation, gait abnormalities, or tremors. ENT: No hearing loss, otalgia, otorrhea, rhinitis, rhinorrhea, hoarseness, or sore throat. CARDIOVASCULAR: Denies any exertional angina, dyspnea on exertion, orthopnea, paroxysmal nocturnal dyspnea, palpitations, life-threatening arrhythmias, claudication. PULMONARY: Denies any shortness of breath, cough, phlegm/sputum, hemoptysis, p leuritic chest pain. SLEEP: Denies morning headaches, daytime somnolence or napping. Denies difficulty falling asleep, staying asleep, waking from sleep. Denies knowledge of snoring. GASTROINTESTINAL: Denies any type of dysphagia to either liquids or solids. Denies nausea, vomiting, pyrosis, early satiety, diarrhea or changes in stool consistency or caliber. Denies coffee-ground emesis, hematemesis, hematochezia, or melanotic stools. Patient has abdominal pain due to fecal impaction GENITOURINARY: Denies frequency, urgency, nocturia, hematuria or incontinence ENDOCRINOLOGIC: Denies polyuria, polydipsia, polyphagia or heat/cold intolerances. HEMATOLOGIC: Denies thrombophilia/previous clots, or coagulopathy/bleeding disorders. PSYCHIATRIC: Denies any suicidal or homicidal ideation. Denies hallucinations. PHYSICAL EXAM GENERAL APPEARANCE: The patient is awake, alert, and oriented, in no acute cardiopulmonary distress. NEUROLOGICAL: Cranial nerves II-XII grossly intact. Motor is 5/5 in bilateral upper and lower extremities proximal to distal. No sensory deficits. HEENT: Face is symmetric. Pupils are equal and reactive. Extraocular movements are intact. NECK: Supple. No JVD. No thyromegaly. No submental, submandibular, pre- /postauricular, occipital or supraclavicular lymphadenopathy. CHEST: Normal chest expansion. No Telemetry. LUNGS: Absence of any rales, rhonchi or any wheezing. CARDIOVASCULAR: Regular. S1 and S2 normal. No appreciable rubs, murmurs or gallops. ABDOMEN: Soft, nontender, and nondistended. There is no rebound, voluntary guarding, or rigidity. : Deferred. No Mariano. EXTREMITIES: Non-edematous and not cyanotic. No clubbing. Good capillary refill. SKIN: open wound to sacral area Vital Signs (last 8hr) Date Time Temp Pulse Resp B/P (MAP) Pulse Ox O2 Delivery O2 Flow Rate FiO2 02/02/25 12:00 97.9 80 16 130/70 97 Room Air 21 02/02/25 10:15 96 Room Air* 0 21 02/02/25 08:00 98.2 76 16 129/72 99 Room Air 21 LABS: Laboratory: Test 02/02/25 03:36 02/01/25 14:01 02/01/25 07:15 Range/Units White Blood Count 5.9 4.8-10.8 K/uL Red Blood Count 3.01 L 4.50-6.20 MIL/uL Hemoglobin 9.8 L 14.0-18.0 g/dL Hematocrit 28.4 L 42-54 % Mean Corpuscular Volume 94.4 79-99 fL Mean Corpuscular Hemoglobin 32.6 27.0-33.0 pg Mean Corpuscular Hemoglobin Concent 34.5 32.0-36.0 g/dL Red Cell Distribution Width 15.1 11.0-15.5 % Platelet Count 117 L 130-400 K/uL Mean Platelet Volume 9.2 7.5-10.5 fL Immature Granulocyte % (Auto) 0.5 0-1 % Neutrophils (%) (Auto) 56.3 40.0-77.0 % Lymphocytes (%) (Auto) 35.2 21.0-51.0 % Monocytes (%) (Auto) 6.6 3.0-13.0 % Eosinophils (%) (Auto) 1.2 0.0-8.0 % Basophils (%) (Auto) 0.2 0.0-5.0 % Neutrophils # (Auto) 3.3 1.8-7.7 K/uL Lymphocytes # (Auto) 2.1 1.0-4.8 K/uL Monocytes # (Auto) 0.4 0.1-1.0 K/uL Eosinophils # (Auto) 0.07 0.00-0.70 K/uL Basophils # (Auto) 0.01 0.00-0.20 K/uL Absolute Immature Granulocyte (auto 0.03 0-1 K/uL Nucleated Red Blood Cells 0.0 0.0-0.19 % Sodium Level 143 136-145 mmol/L Potassium Level 4.1 3.5-5.1 mmol/L Chloride Level 110 101-111 mmol/L Carbon Dioxide Level 27 21-32 mmol/L Blood Urea Nitrogen 10 7-18 mg/dL Creatinine 0.7 0.5-1.3 mg/dL Glomerular Filtration Rate Calc 97 >90 mL/min Random Glucose 102 70-105 mg/dL Total Calcium 8.2 L 8.5-10.1 mg/dL Total Bilirubin 0.8 0.2-1.0 mg/dL Aspartate Amino Transf (AST/SGOT) 36 10-37 U/L Alanine Aminotransferase (ALT/SGPT) 42 12-78 U/L Alkaline Phosphatase 268 H 50-136 U/L C-Reactive Protein, Quantitative 35.60 H 0.5-3.0 mg/L Total Protein 6.5 6.0-8.3 g/dL Albumin 1.8 L 3.5-5.0 g/dL Prothrombin Time 12.4 H 9.6-11.6 SEC Prothromb Time International Ratio 1.19 H 0.85-1.15 Activated Partial Thromboplast Time 24.5 L 26.3-35.5 SEC Magnesium Level 2.00 1.80-2.40 mg/dL Vancomycin Level Trough 14.7 # 10.0-20.0 UG/ML Current Medications Medications (Trade) Dose Ordered Sig/Panchito Route PRN Reason Start Time Stop Time Status Last Admin Dose Admin Acetaminophen (TYLenol 325MG TAB) 650 mg Q4H PRN PO MILD PAIN (1-3) 01/27/25 20:00 02/26/25 19:59 Acetaminophen (TYLenol 325MG TAB) 650 mg Q6H PRN PO TEMPERATURE GREATER THAN 101.5 01/27/25 20:00 02/26/25 19:59 Acetaminophen/ Hydrocodone Bitart (NORco 5/325MG) 1 tab Q6H PRN PO MODERATE PAIN (4-6) 01/27/25 16:00 02/01/25 12:00 DC 01/31/25 20:35 1 TAB Ampicillin Sodium (Ampicillin 2gm+NS 100ml) 2 gm Q6H IV 02/01/25 12:00 02/22/25 11:59 02/02/25 12:11 2 GM Cefepime HCl (MAXipime 2 gm vial) 2 gm Q12H IVPB 01/27/25 21:30 02/01/25 11:42 DC 02/01/25 09:34 2 GM Ceftriaxone Sodium (Rocephin 2gm Inj) 2 gm Q12H IVPB 02/01/25 12:00 02/11/25 11:59 02/02/25 12:00 2 GM Famotidine (Pepcid 20mg Tab) 20 mg DAILY PO 01/28/25 09:00 02/27/25 08:59 02/02/25 09:50 20 MG Fluconazole (DiFLUCan 100 mg TAB) 200 mg DAILY PO 01/31/25 09:00 03/02/25 08:59 02/02/25 09:50 200 MG Heparin Sodium (Porcine) (HEParin 5,000 UNIT VIAL) 5,000 unit Q12H SQ 01/28/25 09:00 02/27/25 08:59 02/02/25 09:59 5,000 UNIT Lactated Ringer's 1,000 ml @ 75 mls/hr [id number] IV 01/27/25 21:30 02/26/25 21:29 02/02/25 02:54 75 MLS/HR Lactulose (Constulose 20gm/ 30ml Udcup) 20 gm BID PO 02/02/25 09:00 03/04/25 08:59 02/02/25 09:50 20 GM Lactulose (Constulose 20gm/ 30ml Udcup) 20 gm BID PRN PO CONSTIPATION 02/01/25 16:30 03/03/25 16:29 02/01/25 21:31 20 GM Magnesium Sulfate 50 ml @ 0 mls/hr PROTOCOL PRN IV OTHER [SEE ORDER COMMENTS] 01/27/25 20:00 02/26/25 19:59 01/31/25 08:41 25 MLS/HR Metronidazole/ Sodium Chloride (flaGYL) 500 mg Q8H IV 01/27/25 21:30 01/30/25 23:42 DC 01/30/25 22:31 500 MG Morphine Sulfate (morPHINE 2MG SYG) 1 mg Q4H PRN IVP SEVERE PAIN (7-10) 01/27/25 15:30 01/27/25 15:47 DC Norepinephrine 250 ml @ 0 mls/hr PROTOCOL IV 01/27/25 17:00 01/29/25 14:46 DC 01/27/25 17:50 26.25 MLS/HR Nystatin (NystOP 15 GM POWDER) coccyx BID TP 01/30/25 21:00 03/01/25 20:59 02/02/25 09:51 1 APPL Ondansetron HCl (zoFRAN 4MG INJ) 4 mg Q6H PRN IV NAUSEA/VOMITING 01/27/25 20:00 02/26/25 19:59 02/01/25 13:10 4 MG Pharmacy Profile Note (Pharmacy Communication) 1 each AD MISC 01/28/25 10:30 01/28/25 10:21 DC Piperacillin Sod/ Tazobactam Sod 50 ml @ 12.5 mls/hr Q8H IV 01/27/25 22:00 01/27/25 21:32 DC Potassium Chloride 100 ml @ 100 mls/hr AD PRN IV POTASSIUM PROTOCOL 01/27/25 20:00 02/26/25 19:59 Potassium Chloride (K-Dur/Klor-Con 20meq) 20 meq AD PRN PO POTASSIUM PROTOCOL 01/27/25 20:00 02/26/25 19:59 02/01/25 09:35 20 MEQ Potassium Chloride (KCl 10% Elixir 20meq/15ml) 20 meq AD PRN PO POTASSIUM PROTOCOL 01/27/25 20:00 02/26/25 19:59 Sodium Chloride 1,000 ml @ 100 mls/hr Q10H IV 01/27/25 20:00 01/28/25 15:59 DC 01/27/25 20:04 100 MLS/HR Vancomycin HCl 250 ml @ 125 mls/hr BID@0800,2000 IV 01/31/25 08:00 02/01/25 11:42 DC 02/01/25 09:34 125 MLS/HR Vancomycin HCl 250 ml @ 125 mls/hr ONCE IV 01/27/25 20:00 01/27/25 20:09 DC Vancomycin HCl 250 ml @ 125 mls/hr Q24H IV 01/28/25 20:00 01/30/25 23:59 DC 01/30/25 20:34 125 MLS/HR Vancomycin HCl (Vancomycin Protocol) 1 each AD IV 01/27/25 20:30 02/01/25 11:42 DC Wound Care/ Dressing Products (Venelex Ointment) apply to coccyx BID TP 01/28/25 21:00 02/27/25 20:59 02/02/25 09:51 1 GM DIAGNOSTICS / RADIOLOGY: [ ] ASSESSMENT: Septic shock with recent diskitis POA Stage 2 pressure ulcer on coccyx POA Acute kidney injury POA, resolved Suspected [place] valve infective endocarditis, POA, ruled out Acute normocytic normochromic anemia POA Acute thrombocytopenia Mild hyponatremia POA Mild hypochloremia POA Lactic acidosis POA Suspected acute urinary tract infection POA, negative cultures PLAN: Pending placement in LTAC 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 * SOFA score of 3 on 01/28, lactic acid 3.8, bilirubin 1.4, creatinine 0.7, on norepinephrine 0.04 mcg/kg/min, platelet count of 122. * Lactic acid trend: 3.8> 2.8> 1.2>1.1>1.1, procalcitonin 16.94 (01/28/2025). * Discontinued cefepime2 g q.12 and vancomycin, and started the patient on ampicillin 2g IV(day 1), ceftriaxone 2g IV (day 1) fluconazole[day 2] * Continue telemetry * Infectious diseases on board follow their recommendations. * MR spine revealed Fluid signal intensity at L4-L5 level with subtle erosive changes at the inferior endplate of L4 and superior endplate of the L5 vertebra with bone marrow edema. 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 * Continue to monitor vitals, CRP, CBC Suspected infective endocarditis of the [place] valve: * Patient's blood cultures grew Gram-positive cocci in chains and Gram-negative rods. * Gram-negative rods identified as pansensitive E coli. * Echocardiography revealed small anterior mitral valve tip vegetation versus myxomatous leaflet, Follow up with ROBERT. * ROBERT done today showed no evidence of vegetations or endocarditis and the bubble study was negative * Continue with the current antibiotic regimen. Stage II pressure ulcer on coccyx with granulation and minimal slough with mild periwound erythema and no drainage: * Patient has an open wound to the sacral area. * Wound care consulted, they recommended Venelex b.i.d. and p.r.n.. * Place the patient on a waffle mattress, keep the wounds clean and dry. * Frequent repositioning q.2 hours. * Wound culture positive for Enterococcus faecalis sensitive to ampicillin, gentamicin, penicillin, vancomycin and Jennifer albicans. * Continue current IV antibiotic management (see above). * Continue to serially assess the lesion. DVT prophylaxis with heparin 5000 b.i.d.. GI prophylaxis with Pepcid 20 mg p.o. daily ATTESTATION BY PHYSICIAN I have seen and examined the patient. I reviewed the documentation, medical decision making, and treatment plan as noted by the resident provider above. I agree with the findings and plan of care. Arnaldo Nuñez MD, LAKSHMI MD Feb 02, 2025 13:12
--- NOTE | 2025-02-02 21:47 | PN ---
INFECTIOUS DISEASE PROGRESS NOTE Date of Service: Feb 02, 2025 SUBJECTIVE: This is a 74-year-old male patient who was seen and examined at bedside in room 227. Patient is awake, alert and oriented x3. patient remains afebrile, temperature 97.9 and the WBC is 5.9. Platelets has improved and is 117 today. We will continue on ampicillin, ceftriaxone and fluconazole. Patient is still pending records from [facility] in [place]. Patient is pending insurance approval to [facility]. PHYSICAL EXAM EYES: Anicteric. Pupils equal and reactive. HENT: No oral thrush seen, moist Oral mucosa. NECK: Supple, no JVD or thyromegaly. LUNGS: Good air entry. No rales, no rhonchi. CARDIOVASCULAR: S1, S2 regular. No murmur heard. ABDOMEN: Soft, non tender, bowel sounds present. CENTRAL NERVOUS SYSTEM: Awake, alert, oriented x 3. SKIN: No rashes, no swelling. LYMPHATICS: No peripheral lymphadenopathy. MUSCULOSKELETAL: No joint swelling, erythema or tenderness. EXTREMITIES: No cyanosis or clubbing BACK: Stage II coccygeal ulcer. GENITOURINARY: No dysuria or hematuria Vital Sign (Last 12 Hours) 02/02/25 02/02/25 02/02/25 02/02/25 10:15 12:00 16:00 19:30 Temp 97.9 98.1 98.4 Pulse 80 78 85 Resp 16 16 18 B/P (MAP) 130/70 160/73 130/61 Pulse Ox 96 97 96 98 O2 Delivery Room Air* Room Air Room Air Room Air O2 Flow Rate 0 FiO2 21 21 21 02/02/25 20:00 Pulse Ox 96 O2 Delivery Room Air* O2 Flow Rate 0 FiO2 21 Intake & Output (last 24hrs) 02/01/25 02/01/25 02/02/25 15:00 23:00 07:00 Intake Total 200.0 ml 1100.0 ml 1025.0 ml Output Total 200 ml 200 ml 425 ml Balance 0 ml 900.0 ml 600.0 ml LABS: Laboratory: Test 02/02/25 03:36 02/01/25 14:01 02/01/25 07:15 Range/Units White Blood Count 5.9 4.8-10.8 K/uL Red Blood Count 3.01 L 4.50-6.20 MIL/uL Hemoglobin 9.8 L 14.0-18.0 g/dL Hematocrit 28.4 L 42-54 % Mean Corpuscular Volume 94.4 79-99 fL Mean Corpuscular Hemoglobin 32.6 27.0-33.0 pg Mean Corpuscular Hemoglobin Concent 34.5 32.0-36.0 g/dL Red Cell Distribution Width 15.1 11.0-15.5 % Platelet Count 117 L 130-400 K/uL Mean Platelet Volume 9.2 7.5-10.5 fL Immature Granulocyte % (Auto) 0.5 0-1 % Neutrophils (%) (Auto) 56.3 40.0-77.0 % Lymphocytes (%) (Auto) 35.2 21.0-51.0 % Monocytes (%) (Auto) 6.6 3.0-13.0 % Eosinophils (%) (Auto) 1.2 0.0-8.0 % Basophils (%) (Auto) 0.2 0.0-5.0 % Neutrophils # (Auto) 3.3 1.8-7.7 K/uL Lymphocytes # (Auto) 2.1 1.0-4.8 K/uL Monocytes # (Auto) 0.4 0.1-1.0 K/uL Eosinophils # (Auto) 0.07 0.00-0.70 K/uL Basophils # (Auto) 0.01 0.00-0.20 K/uL Absolute Immature Granulocyte (auto 0.03 0-1 K/uL Nucleated Red Blood Cells 0.0 0.0-0.19 % Sodium Level 143 136-145 mmol/L Potassium Level 4.1 3.5-5.1 mmol/L Chloride Level 110 101-111 mmol/L Carbon Dioxide Level 27 21-32 mmol/L Blood Urea Nitrogen 10 7-18 mg/dL Creatinine 0.7 0.5-1.3 mg/dL Glomerular Filtration Rate Calc 97 >90 mL/min Random Glucose 102 70-105 mg/dL Total Calcium 8.2 L 8.5-10.1 mg/dL Total Bilirubin 0.8 0.2-1.0 mg/dL Aspartate Amino Transf (AST/SGOT) 36 10-37 U/L Alanine Aminotransferase (ALT/SGPT) 42 12-78 U/L Alkaline Phosphatase 268 H 50-136 U/L C-Reactive Protein, Quantitative 35.60 H 0.5-3.0 mg/L Total Protein 6.5 6.0-8.3 g/dL Albumin 1.8 L 3.5-5.0 g/dL Prothrombin Time 12.4 H 9.6-11.6 SEC Prothromb Time International Ratio 1.19 H 0.85-1.15 Activated Partial Thromboplast Time 24.5 L 26.3-35.5 SEC Magnesium Level 2.00 1.80-2.40 mg/dL Vancomycin Level Trough 14.7 # 10.0-20.0 UG/ML ASSESSMENT: E coli bacteremia. Lumbar spine osteomyelitis. Mitral valve vegetation, ruled out. Sepsis. Stage II coccygeal ulcer with Jennifer albicans infection. Urinary tract infection. Leukocytosis, resolved. Diabetes mellitus. PLAN: Continue ceftriaxone. Continue fluconazole. Continue ampicillin. Continue cefepime IV. Continue GI prophylaxis. Continue pain management. Continue wound care. Continue antidiabetics. Patient is pending insurance approval to [facility]. This case was reviewed and discussed with my supervising physician Dr. Gandhi and the above assessment and plan was formulated and agreed upon. ATTESTATION BY PHYSICIAN I have seen and examined the patient. I reviewed the documentation, medical decision making, and treatment plan as noted by the mid-level provider above. I agree with the findings and plan of care. MAURICIO GANDHI MD, MIRTA L [facility] Feb 02, 2025 21:47
[2025-02-03] VITALS (7 sets, daily range): BP systolic 108–169; BP diastolic 54–66; PULSE 68–87; RESP 16–18; TEMP 97.5–98.7; O2SAT 98–99
[2025-02-03 04:07] LABS: IMMATURE GRANULOCYTE ABSOLUTE 0.03 K/uL (0-1); NUCLEATED RED BLOOD CELLS 0.0 % (0.0-0.19); PLATELET COUNT (AUTO) 120 K/uL (130-400); RED BLOOD CELL COUNT(AUTO) 3.01 MIL/uL (4.50-6.20); RED CELL DISTRIBUTION WIDTH 15.3 % (11.0-15.5); WHITE BLOOD COUNT (AUTO) 5.1 K/uL (4.8-10.8)
[2025-02-03 04:21] LABS: CREATININE 0.6 mg/dL (0.5-1.3); GLOMERULAR FILTR. RATE CALC 102.0 mL/min (>90); GLUCOSE,RANDOM 99.0 mg/dL (70-105); SODIUM SERUM 139.0 mmol/L (136-145); UREA NITROGEN, BLOOD 9.0 mg/dL (7-18)
--- NOTE | 2025-02-03 09:19 | HMCSR ---
APPROVED REPORT EXAM: Transesophageal echocardiogram with color flow Doppler. INDICATION ICD: Endocarditis Reason For Test : Rule out endocarditis. PROCEDURE After obtaining informed consent, patient underwent transesophageal echo in the Patient Room 227. 15 mL 2% Viscous Lidocaine was given as a topical anesthetic prior to the administration of the conscious sedation. Type of Sedation: Conscious Sedation Sedation was administered by Celina Garsia RN. Sedation was achieved with refer to chart intravenously. Transesophageal probe was inserted and advanced into esophagus without difficulty by Dr. Edmundo Mujica. Echo enhancement indication: R/O Septal defect. Echo enhancement agent administered: Agitated Saline. ROBERT was performed and images were obtained, probe was removed without complications. Throughout the procedure, the blood pressure, pulse oximetry, cardiac rhythm, and rate were monitored. The patient tolerated the procedure without adverse effects. Recovery from conscious sedation was uneventful and vital signs were stable. Left Ventricle The left ventricle is normal size. There is normal left ventricular wall thickness. LVEF is >55%. Not assessed. Right Ventricle The right ventricle is normal size. The right ventricular systolic function is normal. Atria The left atrium size is normal. Spontaneous contrast in left atrium. No thrombus is visualized in the left atrial appendage. The atrial septum is aneurysmal. No evidence of PFO by color flow Doppler and agitated saline. The right atrium size is normal. Aortic Valve The aortic valve is thickened but opens well. Mild aortic regurgitation. There is no aortic valvular vegetation. There is no aortic valvular stenosis. Mitral Valve The mitral valve is normal in structure. Mitral regurgitation is trace. No mitral valve vegetation. There is no mitral valve stenosis. Tricuspid Valve The tricuspid valve is normal in structure. There is trace tricuspid valve regurgitation noted. There is no tricuspid valve vegetation. Pulmonic Valve Pulmonic valve is not well visualized. There is no pulmonic valvular regurgitation. Great Vessels The aortic root is normal in size. Pericardium There is no pericardial effusion. Conclusion The aortic valve is normal in structure. LVEF is >55%. The right ventricular systolic function is normal. The left atrium size is normal. No thrombus is visualized in the left atrial appendage. No evidence of PFO by color flow Doppler and agitated saline. Mild aortic regurgitation. No evidence of valvular vegetations. There is no pericardial effusion.
--- NOTE | 2025-02-03 14:25 | PN ---
[facility] PROGRESS NOTE Date of Service: Feb 03, 2025 Time of Service: 14:23 SUBJECTIVE: This is a 74-year-old male past medical history of hypertension, diabetes, hyperlipidemia ,UTI due to Ecoli and obesity with past surgical history of right colectomy and polyps removal who was brought by EMS to the ED for complaints of fever and generalized body weakness.Patient was recently admitted in this facility for septic shock and was treated with ABT for E coli and was receiving IV ABT as outpatient managed by as per patient .Patient reports he was also recently admitted in [place] and was diagnosed with Diskitis and was discharged yesterday and came back here.Today he started having fever so he decided to come to the ED for evaluation.Upon ER arrival patient V/S was T99.5,HR 119,BP 70/42 and Sat 96% RA. Seen and examined patient in the ER awake,alert and coherent,states he feels much better now than when he came in he said.On further evaluation ,patient has an open wound to sacral area,and patient reports he has been having it since he was discharge home.Patient is also on Levophed drip.Patient denies,nausea,vomiting,chest pain,palpitation,cough and shortness of breath. Latest vital signs heart rate 67, blood pressure 90/50 saturation 99% on room air. Labs: WBC 13 with negative left shift of neutrophils 89, hemoglobin 10, hematocrit 29, platelet count 122. Sodium 132, chloride 100, BUN 34, lactic acid 3.8-2.8 troponin 41. Urinalysis significant for urine bilirubin small, urine urobilinogen two, small esterase, urine WBC 6-10. While in the ER patient received vancomycin 1 g IV, Zosyn 3.375 IV, Tylenol 1000 mg p.o. and fluid re suscitation of NS 30 mL/kilogram over 3 hours and morphine 1 mg IV. We will admit patient for further medical management. 01/28: Patient was seen and evaluated at bedside in room 207. He was awake, alert, and oriented 3, sitting comfortably in his chair during the encounter. He denies dizziness, generalized weakness, chest pain, shortness of breath, na usea, vomiting, or other acute complaints today. He states he is relieved that his blood pressure has been improving. He remains on norepinephrine at 0.04 mcg/kg/hr. A 2D echocardiogram obtained today revealed suspicious vegetations on the mitral valve; cardiology has been consulted and evaluation is pending. Infectious Diseases has also evaluated the patient and recommended continuing vancomycin, ceftriaxone, and metronidazole (Flagyl). Blood cultures have grown gram-positive cocci in chains; final organism identification and sensitivities are pending. The patient is also pending MRI, but current pressor support is not MRI-compatible. He will require weaning off norepinephrine prior to being transported safely for imaging. He denies any new symptoms today and remains hemodynamically stable aside from ongoing vasopressor requirement. 01/29: Patient was seen and evaluated at bedside in room 207. He was awake, a lert, and oriented 3. He reports feeling much better today and denies any active complaints, including chest pain, shortness of breath, dizziness, nausea, or abdominal discomfort. He is now off vasopressors and maintaining stable blood pressure around 110/70, and will be downgraded to PCCU today. Infectious Diseases has recommended a transesophageal echocardiogram (ROBERT) to further evaluate for infective endocarditis; this is currently pending. Cardiology has been consulted for management of suspected endocarditis, and their evaluation is pending as well. He remains on vancomycin, and ceftriaxone was discontinued today. Identification and sensitivities of the bacteremia are still pending. Patient has no additional concerns at this time, and all questions were addressed. 01/30: Patient was seen and evaluated at bedside in room 2. He was awake, alert, and oriented x3. patient continues to do well and denies any active complaints today. Cardiology evaluated the patient and recommended a ROBERT tomorrow to further evaluate the mitral valve vegetation seen on the ROBERT. Patient was informed that his code status will have to be changed to full code for ROBERT, and he verbalized understanding and is in agreement with proceeding to ROBERT. He continues on vancomycin (day 3). Case management has been trying to get the patient placed on a senior care facility as the patient was rejected at [facility]. One of his blood cultures grew E coli which was pansensitive. We are still pending the ID and susceptibility of the Gram-positive cocci seen on the other blood culture. Repeat blood cultures were sent today, follow up with the results. Patient is still pending MRI of the spine to evaluate his osteomyelitis, follow up with Radiology. Patient has no other concerns, and all questions were addressed. 01/31/2025 Patient is seen and examined at the bedside today. Vital signs remained stable with blood pressure in 100s/60s, heart rate in 70s, oxygen saturation greater t crane 95% on room air. He has been afebrile. No acute events last night. He reports feeling well and denies fever, chills, chest pain, palpitations, abdominal pain or diarrhea or any new symptoms. He underwent a ROBERT today which showed no evidence of vegetations or endocarditis and the bubble study was negative. He remains on fluconazole, vancomycin and cefepime. Labs WBC 6.2, hemoglobin 9.6, BNP unremarkable, CRP trended down from 60.90 to 37. We will continue to monitor his clinical status. 02/01/2025: The patient was seen and evaluated at bedside in room 227. He was awake, alert, and oriented x3. he reports feeling well today with no new symptoms. He denies shortness of breath, chest pain, palpitations, lightheadedness, generalized weakness, fevers, or any symptoms concerning for ongoing sepsis. He does report constipation, stating that his last bowel movement was2 days ago and he would like some medication for relief; however, he prefers to receive treatment after physical therapy works with him today. A ROBERT was negative for endocarditis. 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 He is currently receiving IV antibiotics, and IV fluconazole was added due to Jennifer albicans growth from his sacral ulcer. His 1st blood culture returned positive for pansensitive E coli; repeat blood cultures are negative so far. He is pending placement for an LTAC, awaiting insurance authorization. The patient remains hemodynamically stable and has no additional complaints at this time. 02.02.2025: The patient was seen and evaluated at bedside in room 227. He was awake, alert, and oriented x3. The patient reports abdominal pain and has not had a bowel movement for the past several days. He was started on lactulose BID yesterday but has not yet had a bowel movement. Abdominal X-ray demonstrates fecal impaction in the distal sigmoid colon and rectum. A mineral oil enema has been ordered. The patient is pending LTAC placement and Infectious Disease recommendations for a minimal anterior epidural abscess. He is currently receiving ampicillin and ceftriaxone. 02.03.2025: Patient is seen and evaluated in room number 227. No new complaints reported initially. WBC is stable at 5.1, hemoglobin remains stable at 9.7, and elect rolytes are within normal limits. Calcium is 8.3 with albumin 1.8; corrected calcium is 10.06, which is within normal range. CRP is trending down at 35, and ALP is elevated at 268. Patient reports having a bowel movement yesterday and passed three to four hard and painful stools. Patient is also experiencing rectal pain, stating that it comes and goes. This pain is likely related to the recent passage of hard stools. We have ordered Anusol-HC 25 mg suppository for symptomatic relief. We are currently pending [facility]ARA approval. REVIEW OF SYSTEMS CONSTITUTIONAL: Denies night sweats. No unintentional weight loss reported. NEUROLOGICAL: Denies headache, amaurosis fugax,sensory deficit, vertigo/ spinning sensation, gait abnormalities, or tremors. ENT: No hearing loss, otalgia, otorrhea, rhinitis, rhinorrhea, hoarseness, or sore throat. CARDIOVASCULAR: Denies any exertional angina, dyspnea on exertion, orthopnea, paroxysmal nocturnal dyspnea, palpitations, life-threatening arrhythmias, claudication. PULMONARY: Denies any shortness of breath, cough, phlegm/sputum, hemoptysis, pleuritic chest pain. SLEEP: Denies morning headaches, daytime somnolence or napping. Denies difficulty falling asleep, staying asleep, waking from sleep. Denies knowledge of snoring. GASTROINTESTINAL: Denies any type of dysphagia to either liquids or solids. Denies nausea, vomiting, pyrosis, early satiety, diarrhea or changes in stool consistency or caliber. Denies coffee-ground emesis, hematemesis, hematochezia, or melanotic stools. Patient has abdominal pain due to fecal impaction GENITOURINARY: Denies frequency, urgency, nocturia, hematuria or incontinence ENDOCRINOLOGIC: Denies polyuria, polydipsia, polyphagia or heat/cold intolerances. HEMATOLOGIC: Denies thrombophilia/previous clots, or coagulopathy/bleeding disorders. PSYCHIATRIC: Denies any suicidal or homicidal ideation. Denies hallucinations. PHYSICAL EXAM GENERAL APPEARANCE: The patient is awake, alert, and oriented, in no acute cardiopulmonary distress. NEUROLOGICAL: Motor is 5/5 in bilateral upper and lower extremities proximal to distal. No sensory deficits. HEENT: Face is symmetric. Pupils are equal and reactive. Extraocular movements are intact. NECK: Supple. No thyromegaly. No submental, submandibular, pre-/postauricular, occipital or supraclavicular lymphadenopathy. CHEST: Normal chest expansion. No Telemetry. LUNGS: Absence of any rales, rhonchi or any wheezing. CARDIOVASCULAR: Regular. S1 and S2 normal. No appreciable rubs, murmurs or gallops. ABDOMEN: Soft, nontender, and nondistended. There is no rebound, voluntary guarding, or rigidity. : Deferred. No Mariano. EXTREMITIES: Non-edematous and not cyanotic. No clubbing. Good capillary refill. SKIN: open wound to sacral area Vital Signs (last 8hr) Date Time Temp Pulse Resp B/P (MAP) Pulse Ox O2 Delivery O2 Flow Rate FiO2 02/03/25 12:00 98.2 87 16 108/62 97 Room Air 21 02/03/25 07:52 97.5 74 16 131/59 98 Room Air 21 LABS: Laboratory: Test 02/03/25 03:56 02/02/25 03:36 Range/Units White Blood Count 5.1 4.8-10.8 K/uL Red Blood Count 3.01 L 4.50-6.20 MIL/uL Hemoglobin 9.7 L 14.0-18.0 g/dL Hematocrit 28.3 L 42-54 % Mean Corpuscular Volume 94.0 79-99 fL Mean Corpuscular Hemoglobin 32.2 27.0-33.0 pg Mean Corpuscular Hemoglobin Concent 34.3 32.0-36.0 g/dL Red Cell Distribution Width 15.3 11.0-15.5 % Platelet Count 120 L 130-400 K/uL Mean Platelet Volume 8.8 7.5-10.5 fL Immature Granulocyte % (Auto) 0.6 0-1 % Neutrophils (%) (Auto) 56.2 40.0-77.0 % Lymphocytes (%) (Auto) 35.5 21.0-51.0 % Monocytes (%) (Auto) 5.1 3.0-13.0 % Eosinophils (%) (Auto) 2.4 0.0-8.0 % Basophils (%) (Auto) 0.2 0.0-5.0 % Neutrophils # (Auto) 2.9 1.8-7.7 K/uL Lymphocytes # (Auto) 1.8 1.0-4.8 K/uL Monocytes # (Auto) 0.3 0.1-1.0 K/uL Eosinophils # (Auto) 0.12 0.00-0.70 K/uL Basophils # (Auto) 0.01 0.00-0.20 K/uL Absolute Immature Granulocyte (auto 0.03 0-1 K/uL Nucleated Red Blood Cells 0.0 0.0-0.19 % Sodium Level 139 136-145 mmol/L Potassium Level 3.7 3.5-5.1 mmol/L Chloride Level 107 101-111 mmol/L Carbon Dioxide Level 28 21-32 mmol/L Blood Urea Nitrogen 9 7-18 mg/dL Creatinine 0.6 0.5-1.3 mg/dL Glomerular Filtration Rate Calc 102 >90 mL/min Random Glucose 99 70-105 mg/dL Total Calcium 8.3 L 8.5-10.1 mg/dL Total Bilirubin 0.8 0.2-1.0 mg/dL Aspartate Amino Transf (AST/SGOT) 36 10-37 U/L Alanine Aminotransferase (ALT/SGPT) 42 12-78 U/L Alkaline Phosphatase 268 H 50-136 U/L C-Reactive Protein, Quantitative 35.60 H 0.5-3.0 mg/L Total Protein 6.5 6.0-8.3 g/dL Albumin 1.8 L 3.5-5.0 g/dL Current Medications Medications (Trade) Dose Ordered Sig/Panchito Route PRN Reason Start Time Stop Time Status Last Admin Dose Admin Acetaminophen (TYLenol 325MG TAB) 650 mg Q4H PRN PO MILD PAIN (1-3) 01/27/25 20:00 02/26/25 19:59 Acetaminophen (TYLenol 325MG TAB) 650 mg Q6H PRN PO TEMPERATURE GREATER THAN 101.5 01/27/25 20:00 02/26/25 19:59 Acetaminophen/ Hydrocodone Bitart (NORco 5/325MG) 1 tab Q6H PRN PO MODERATE PAIN (4-6) 01/27/25 16:00 02/01/25 12:00 DC 01/31/25 20:35 1 TAB Ampicillin Sodium (Ampicillin 2gm+NS 100ml) 2 gm Q6H IV 02/01/25 12:00 02/22/25 11:59 02/03/25 13:32 2 GM Cefepime HCl (MAXipime 2 gm vial) 2 gm Q12H IVPB 01/27/25 21:30 02/01/25 11:42 DC 02/01/25 09:34 2 GM Ceftriaxone Sodium (Rocephin 2gm Inj) 2 gm Q12H IVPB 02/01/25 12:00 02/11/25 11:59 02/03/25 13:32 2 GM Famotidine (Pepcid 20mg Tab) 20 mg DAILY PO 01/28/25 09:00 02/27/25 08:59 02/03/25 09:49 20 MG Fluconazole (DiFLUCan 100 mg TAB) 200 mg DAILY PO 01/31/25 09:00 03/02/25 08:59 02/03/25 09:49 200 MG Heparin Sodium (Porcine) (HEParin 5,000 UNIT VIAL) 5,000 unit Q12H SQ 01/28/25 09:00 02/27/25 08:59 02/03/25 09:52 5,000 UNIT Hydrocortisone Acetate (anuSOL-HC 25MG SUPP) 1 supp BID GA 02/03/25 21:00 03/05/25 20:59 Lactated Ringer's 1,000 ml @ 75 mls/hr [id number] IV 01/27/25 21:30 02/26/25 21:29 02/03/25 13:32 75 MLS/HR Lactulose (Constulose 20gm/ 30ml Udcup) 20 gm BID PO 02/02/25 09:00 03/04/25 08:59 02/03/25 09:49 20 GM Lactulose (Constulose 20gm/ 30ml Udcup) 20 gm BID PRN PO CONSTIPATION 02/01/25 16:30 03/03/25 16:29 02/01/25 21:31 20 GM Magnesium Sulfate 50 ml @ 0 mls/hr PROTOCOL PRN IV OTHER [SEE ORDER COMMENTS] 01/27/25 20:00 02/26/25 19:59 01/31/25 08:41 25 MLS/HR Metronidazole/ Sodium Chloride (flaGYL) 500 mg Q8H IV 01/27/25 21:30 01/30/25 23:42 DC 01/30/25 22:31 500 MG Morphine Sulfate (morPHINE 2MG SYG) 1 mg Q4H PRN IVP SEVERE PAIN (7-10) 01/27/25 15:30 01/27/25 15:47 DC Norepinephrine 250 ml @ 0 mls/hr PROTOCOL IV 01/27/25 17:00 01/29/25 14:46 DC 01/27/25 17:50 26.25 MLS/HR Nystatin (NystOP 15 GM POWDER) coccyx BID TP 01/30/25 21:00 03/01/25 20:59 02/03/25 09:50 1 APPL Ondansetron HCl (zoFRAN 4MG INJ) 4 mg Q6H PRN IV NAUSEA/VOMITING 01/27/25 20:00 02/26/25 19:59 02/01/25 13:10 4 MG Pharmacy Profile Note (Pharmacy Communication) 1 each AD MISC 01/28/25 10:30 01/28/25 10:21 DC Piperacillin Sod/ Tazobactam Sod 50 ml @ 12.5 mls/hr Q8H IV 01/27/25 22:00 01/27/25 21:32 DC Potassium Chloride 100 ml @ 100 mls/hr AD PRN IV POTASSIUM PROTOCOL 01/27/25 20:00 02/26/25 19:59 Potassium Chloride (K-Dur/Klor-Con 20meq) 20 meq AD PRN PO POTASSIUM PROTOCOL 01/27/25 20:00 02/26/25 19:59 02/01/25 09:35 20 MEQ Potassium Chloride (KCl 10% Elixir 20meq/15ml) 20 meq AD PRN PO POTASSIUM PROTOCOL 01/27/25 20:00 02/26/25 19:59 Sodium Chloride 1,000 ml @ 100 mls/hr Q10H IV 01/27/25 20:00 01/28/25 15:59 DC 01/27/25 20:04 100 MLS/HR Vancomycin HCl 250 ml @ 125 mls/hr BID@0800,2000 IV 01/31/25 08:00 02/01/25 11:42 DC 02/01/25 09:34 125 MLS/HR Vancomycin HCl 250 ml @ 125 mls/hr ONCE IV 01/27/25 20:00 01/27/25 20:09 DC Vancomycin HCl 250 ml @ 125 mls/hr Q24H IV 01/28/25 20:00 01/30/25 23:59 DC 01/30/25 20:34 125 MLS/HR Vancomycin HCl (Vancomycin Protocol) 1 each AD IV 01/27/25 20:30 02/01/25 11:42 DC Wound Care/ Dressing Products (Venelex Ointment) apply to coccyx BID TP 01/28/25 21:00 02/27/25 20:59 02/03/25 09:50 1 GM DIAGNOSTICS / RADIOLOGY: ASSESSMENT: Septic shock with recent diskitis POA Stage 2 pressure ulcer on coccyx POA Acute kidney injury POA, resolved Suspected ewiiaapaayp valve infective endocarditis, POA, ruled out Acute normocytic normochromic anemia POA Acute thrombocytopenia Mild hyponatremia POA Mild hypochloremia POA Lactic acidosis POA Suspected acute urinary tract infection POA, negative cultures PLAN: Pending placement in LTAC 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 * SOFA score of 3 on 01/28, lactic acid 3.8, bilirubin 1.4, creatinine 0.7, on norepinephrine 0.04 mcg/kg/min, platelet count of 122. * Lactic acid trend: 3.8> 2.8> 1.2>1.1>1.1, procalcitonin 16.94 (01/28/2025). * Discontinued cefepime2 g q.12 and vancomycin, and started the patient on amp icillin 2g IV(day 2), ceftriaxone 2g IV (day 2) fluconazole[day 3] * Continue telemetry * Infectious diseases on board follow their recommendations. * MR spine revealed Fluid signal intensity at L4-L5 level with subtle erosive changes at the inferior endplate of L4 and superior endplate of the L5 vertebra with bone marrow edema. 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 * Continue to monitor vitals, CRP, CBC Suspected infective endocarditis of the ewiiaapaayp valve: * Patient's blood cultures grew Gram-positive cocci in chains and Gram-negative rods. * Gram-negative rods identified as pansensitive E coli. * Echocardiography revealed small anterior mitral valve tip vegetation versus myxomatous leaflet, Follow up with ROBERT. * ROBERT done today showed no evidence of vegetations or endocarditis and the bubble study was negative * Continue with the current antibiotic regimen. Stage II pressure ulcer on coccyx with granulation and minimal slough with mild periwound erythema and no drainage: * Patient has an open wound to the sacral area. * Wound care consulted, they recommended Venelex b.i.d. and p.r.n.. * Place the patient on a waffle mattress, keep the wounds clean and dry. * Frequent repositioning q.2 hours. * Wound culture positive for Enterococcus faecalis sensitive to ampicillin, gentamicin, penicillin, vancomycin and Jennifer albicans. * Continue current IV antibiotic management (see above). * Continue to serially assess the lesion. DVT prophylaxis with heparin 5000 b.i.d.. GI prophylaxis with Pepcid 20 mg p.o. daily ATTESTATION BY PHYSICIAN I have seen and examined the patient. I reviewed the documentation, medical decision making, and treatment plan as noted by the resident provider above. I agree with the findings and plan of care. Arnaldo Nuñez MD, LAKSHMI MD Feb 03, 2025 14:25
--- NOTE | 2025-02-03 15:17 | NUR ---
[facility] Follow-up: Patient re-assessed by wound healing team. See wound assessment. Assessment and recommendations provided to primary nurse. Wound resolved. Education provided.
--- NOTE | 2025-02-03 16:14 | PN ---
PROGRESS NOTE Date of Service: Feb 03, 2025 Time of Service: 16:11 SUBJECTIVE: Patient is evaluated at bedside in room 227 for wound care follow up. Patient is awake, alert and oriented x 3. Patient denies any complaints. No signs of distress noted. REVIEW OF SYSTEMS CONSTITUTIONAL: Denies fever, chills, or fatigue. HEAD/FACE: No signs of trauma. EENT: Denies eye pain, blurred vision, double vision, or light sensitivity. RESPIRATORY: Denies shortness of breath, cough, wheezing CARDIOVASCULAR: Denies chest pain, palpitation, syncope GASTROINTESTINAL/ABDOMINAL: Denies abdominal pain, constipation, diarrhea, nausea or vomiting GENITOURINARY: Denies dysuria or hematuria. MUSCULOSKELETAL: Positive for joint pain, tenderness INTEGUMENTARY: Denies rash or itchiness NEUROLOGICAL/PSYCH: Denies anxiety, depression, heat or cold intolerance. PHYSICAL EXAM EYES: Anicteric. Pupils equal and reactive. HENT: No oral thrush seen, moist Oral mucosa NECK: Supple, no JVD or thyromegaly. LUNGS: Good air entry. No rales, no rhonchi. CARDIOVASCULAR: S1, S2 regular. No murmur heard. ABDOMEN: Soft, non tender, bowel sounds present, no organomegaly CENTRAL NERVOUS SYSTEM: Awake, alert, oriented x 3. No focal deficits. SKIN: Stage 2 pressure ulcer to coccyx noted with 100% epithelization. Wound is resolved. Mild erythema noted to site. LYMPHATICS: No peripheral lymphadenopathy MUSCULOSKELETAL: No joint swelling, erythema or tenderness. EXTREMITIES: No cyanosis or clubbing BACK: No deformity GENITOURINARY: No dysuria or hematuria Vital Signs (last 8hr) Date Time Temp Pulse Resp B/P (MAP) Pulse Ox O2 Delivery O2 Flow Rate FiO2 02/03/25 16:00 98.4 68 16 123/54 98 Room Air 21 02/03/25 12:00 98.2 87 16 108/62 97 Room Air 21 LABS: Laboratory: Test 02/03/25 03:56 02/02/25 03:36 Range/Units White Blood Count 5.1 4.8-10.8 K/uL Red Blood Count 3.01 L 4.50-6.20 MIL/uL Hemoglobin 9.7 L 14.0-18.0 g/dL Hematocrit 28.3 L 42-54 % Mean Corpuscular Volume 94.0 79-99 fL Mean Corpuscular Hemoglobin 32.2 27.0-33.0 pg Mean Corpuscular Hemoglobin Concent 34.3 32.0-36.0 g/dL Red Cell Distribution Width 15.3 11.0-15.5 % Platelet Count 120 L 130-400 K/uL Mean Platelet Volume 8.8 7.5-10.5 fL Immature Granulocyte % (Auto) 0.6 0-1 % Neutrophils (%) (Auto) 56.2 40.0-77.0 % Lymphocytes (%) (Auto) 35.5 21.0-51.0 % Monocytes (%) (Auto) 5.1 3.0-13.0 % Eosinophils (%) (Auto) 2.4 0.0-8.0 % Basophils (%) (Auto) 0.2 0.0-5.0 % Neutrophils # (Auto) 2.9 1.8-7.7 K/uL Lymphocytes # (Auto) 1.8 1.0-4.8 K/uL Monocytes # (Auto) 0.3 0.1-1.0 K/uL Eosinophils # (Auto) 0.12 0.00-0.70 K/uL Basophils # (Auto) 0.01 0.00-0.20 K/uL Absolute Immature Granulocyte (auto 0.03 0-1 K/uL Nucleated Red Blood Cells 0.0 0.0-0.19 % Sodium Level 139 136-145 mmol/L Potassium Level 3.7 3.5-5.1 mmol/L Chloride Level 107 101-111 mmol/L Carbon Dioxide Level 28 21-32 mmol/L Blood Urea Nitrogen 9 7-18 mg/dL Creatinine 0.6 0.5-1.3 mg/dL Glomerular Filtration Rate Calc 102 >90 mL/min Random Glucose 99 70-105 mg/dL Total Calcium 8.3 L 8.5-10.1 mg/dL Total Bilirubin 0.8 0.2-1.0 mg/dL Aspartate Amino Transf (AST/SGOT) 36 10-37 U/L Alanine Aminotransferase (ALT/SGPT) 42 12-78 U/L Alkaline Phosphatase 268 H 50-136 U/L C-Reactive Protein, Quantitative 35.60 H 0.5-3.0 mg/L Total Protein 6.5 6.0-8.3 g/dL Albumin 1.8 L 3.5-5.0 g/dL DIAGNOSTICS / RADIOLOGY: ORDERED: MICHELE CULTURE COMMENTS: Comment: COCCXY CULTURE IN LAB ALREADY Has specimen been collected/obtained? Y Specimen Comment: Y Comment: COCCXY CULTURE IN LAB ALREADY Has specimen been collected/obtained? Y Specimen Comment: Y Comment: COCCXY CULTURE IN LAB ALREADY Has specimen been collected/obtained? Y Specimen Comment: Y Procedure Result María Date-Time ANAEROBIC CULTURE Preliminary 01/30/25-1107 MRL COLONY DESCRIPTION: REPORT 1: NO ANAEROBES AT 16-23 HOURS; STUDIES TO CONTINUE REPORT 2: NO ANAEROBES AT 36-47 HOURS; STUDIES TO CONTINUE 1+ SKIN SANGEETHA ; STUDIES TO CONTINUE COAGULASE NEGATIVE STAPHYLOCOCCUS 1+ YEAST, BETO ALBICANS BETO ALBICANS Test(s) performed by: [facility] [address] [place] [address] @ [facility] Test Performed at: [facility] [address] [place], [place] [employer] Wirer: Berry Cancino D.O. PROBLEM LIST : Medical Problems: (1) Lactic acidosis ICD Codes: E87.20 - Acidosis, unspecified (2) Sepsis ICD Codes: A41.9 - Sepsis, unspecified organism (3) Septic shock ICD Codes: A41.9 - Sepsis, unspecified organism; R65.21 - Severe sepsis with septic shock (4) Pressure ulcer of sacral region, stage 2- Resolved ICD codes: L89.152 (5) Candidiasis of skin PLAN: Continue Wound care to coccyx - apply Venelex BID and PRN and nystatin powder bid Waffle mattress Keep wounds clean and dry Offloading/reposition q 2 hours Continue IV antibiotics per ID Comorbidities per primary care team Further Management per hospital course. Thank You for the consult and allowing us to participate in the care of this patient. ATTESTATION BY PHYSICIAN I have seen and examined the patient. I reviewed the documentation, medical decision making, and treatment plan as noted by the mid-level provider above. I agree with the findings and plan of care. SUSAN MARTELL MD, MICHELLE A [employer] L[employer] OPERATOR Feb 03, 2025 16:14 SUSAN MARTELL MD Feb 13, 2025 13:37
--- NOTE | 2025-02-03 16:54 | NUR ---
REPORT GIVEN TO NURSE CHANO @ [id number], PATIENT BEING TRANSFERRED TO ROOM 115.
--- NOTE | 2025-02-03 17:16 | NUR ---
TRANSFER REPORT GIVEN BY XANDER, PATIENT ARRIVED CLEAN AND IN NO DISTRESS. RESTING COMFORTABLY IN ROOM ENJOYING DINNER.
--- NOTE | 2025-02-03 19:51 | PN ---
INFECTIOUS DISEASE PROGRESS NOTE Date of Service: Feb 03, 2025 SUBJECTIVE: This is a 74-year-old male patient who was seen and examined at bedside in room 227. Patient participated well with physical therapy this morning. No dyspnea observe. We will continue on ampicillin, ceftriaxone and fluconazole. Patient will need 6 weeks of current antibiotics. During rounding today patient is pending insurance approval to [facility]. PHYSICAL EXAM EYES: Anicteric. Pupils equal and reactive. HENT: No oral thrush seen, moist Oral mucosa. NECK: Supple, no JVD or thyromegaly. LUNGS: Good air entry. No rales, no rhonchi. CARDIOVASCULAR: S1, S2 regular. No murmur heard. ABDOMEN: Soft, non tender, bowel sounds present. CENTRAL NERVOUS SYSTEM: Awake, alert, oriented x 3. SKIN: No rashes, no swelling. LYMPHATICS: No peripheral lymphadenopathy. MUSCULOSKELETAL: No joint swelling, erythema or tenderness. EXTREMITIES: No cyanosis or clubbing BACK: Stage II coccygeal ulcer. GENITOURINARY: No dysuria or hematuria Vital Sign (Last 12 Hours) 02/03/25 02/03/25 02/03/25 02/03/25 07:52 08:00 12:00 16:00 Temp 97.5 98.2 98.4 Pulse 74 87 68 Resp 16 16 16 B/P (MAP) 131/59 108/62 123/54 Pulse Ox 98 98 97 98 O2 Delivery Room Air Room Air* Room Air Room Air O2 Flow Rate 0 FiO2 21 21 21 21 02/03/25 17:52 Temp 98.8 Pulse 78 Resp 18 B/P (MAP) 139/66 Pulse Ox 99 O2 Delivery Room Air FiO2 21 Intake & Output (last 24hrs) 02/02/25 02/02/25 02/03/25 15:00 23:00 07:00 Intake Total 725.0 ml 625.0 ml Output Total 300 ml Balance 725.0 ml 625.0 ml -300 ml LABS: Laboratory: Test 02/03/25 03:56 02/02/25 03:36 Range/Units White Blood Count 5.1 4.8-10.8 K/uL Red Blood Count 3.01 L 4.50-6.20 MIL/uL Hemoglobin 9.7 L 14.0-18.0 g/dL Hematocrit 28.3 L 42-54 % Mean Corpuscular Volume 94.0 79-99 fL Mean Corpuscular Hemoglobin 32.2 27.0-33.0 pg Mean Corpuscular Hemoglobin Concent 34.3 32.0-36.0 g/dL Red Cell Distribution Width 15.3 11.0-15.5 % Platelet Count 120 L 130-400 K/uL Mean Platelet Volume 8.8 7.5-10.5 fL Immature Granulocyte % (Auto) 0.6 0-1 % Neutrophils (%) (Auto) 56.2 40.0-77.0 % Lymphocytes (%) (Auto) 35.5 21.0-51.0 % Monocytes (%) (Auto) 5.1 3.0-13.0 % Eosinophils (%) (Auto) 2.4 0.0-8.0 % Basophils (%) (Auto) 0.2 0.0-5.0 % Neutrophils # (Auto) 2.9 1.8-7.7 K/uL Lymphocytes # (Auto) 1.8 1.0-4.8 K/uL Monocytes # (Auto) 0.3 0.1-1.0 K/uL Eosinophils # (Auto) 0.12 0.00-0.70 K/uL Basophils # (Auto) 0.01 0.00-0.20 K/uL Absolute Immature Granulocyte (auto 0.03 0-1 K/uL Nucleated Red Blood Cells 0.0 0.0-0.19 % Sodium Level 139 136-145 mmol/L Potassium Level 3.7 3.5-5.1 mmol/L Chloride Level 107 101-111 mmol/L Carbon Dioxide Level 28 21-32 mmol/L Blood Urea Nitrogen 9 7-18 mg/dL Creatinine 0.6 0.5-1.3 mg/dL Glomerular Filtration Rate Calc 102 >90 mL/min Random Glucose 99 70-105 mg/dL Total Calcium 8.3 L 8.5-10.1 mg/dL Total Bilirubin 0.8 0.2-1.0 mg/dL Aspartate Amino Transf (AST/SGOT) 36 10-37 U/L Alanine Aminotransferase (ALT/SGPT) 42 12-78 U/L Alkaline Phosphatase 268 H 50-136 U/L C-Reactive Protein, Quantitative 35.60 H 0.5-3.0 mg/L Total Protein 6.5 6.0-8.3 g/dL Albumin 1.8 L 3.5-5.0 g/dL ASSESSMENT: E coli bacteremia. Lumbar spine osteomyelitis. Mitral valve vegetation, ruled out. Sepsis. Stage II coccygeal ulcer with Jennifer albicans infection. Urinary tract infection. Leukocytosis, resolved. Diabetes mellitus. PLAN: Continue ceftriaxone. Continue fluconazole. Continue ampicillin. Continue cefepime IV. Continue GI prophylaxis. Continue pain management. Continue wound care. Continue antidiabetics. Patient will need 6 weeks of antibiotics. Patient is pending insurance approval to [facility]. This case was reviewed and discussed with my supervising physician Dr. Gandhi and the above assessment and plan was formulated and agreed upon. ATTESTATION BY PHYSICIAN I have seen and examined the patient. I reviewed the documentation, medical decision making, and treatment plan as noted by the mid-level provider above. I agree with the findings and plan of care. MAURICIO GANDHI MD, MIRTA L [facility] Feb 03, 2025 19:51
[2025-02-04] VITALS (7 sets, daily range): BP systolic 114–132; BP diastolic 53–70; PULSE 67–87; RESP 16–20; TEMP 98–98.7; O2SAT 96
[2025-02-04 04:41] LABS: IMMATURE GRANULOCYTE ABSOLUTE 0.03 K/uL (0-1); NUCLEATED RED BLOOD CELLS 0.0 % (0.0-0.19); PLATELET COUNT (AUTO) 114 K/uL (130-400); RED BLOOD CELL COUNT(AUTO) 3.07 MIL/uL (4.50-6.20); RED CELL DISTRIBUTION WIDTH 15.4 % (11.0-15.5); WHITE BLOOD COUNT (AUTO) 4.6 K/uL (4.8-10.8)
[2025-02-04 04:52] LABS: CREATININE 0.7 mg/dL (0.5-1.3); GLOMERULAR FILTR. RATE CALC 97.0 mL/min (>90); GLUCOSE,RANDOM 101.0 mg/dL (70-105); SODIUM SERUM 139.0 mmol/L (136-145); UREA NITROGEN, BLOOD 9.0 mg/dL (7-18)
--- NOTE | 2025-02-04 15:46 | PN ---
[facility] PROGRESS NOTE Date of Service: Feb 04, 2025 Time of Service: 15:34 SUBJECTIVE: This is a 74-year-old male past medical history of hypertension, diabetes, hyperlipidemia ,UTI due to Ecoli and obesity with past surgical history of right colectomy and polyps removal who was brought by EMS to the ED for complaints of fever and generalized body weakness.Patient was recently admitted in this facility for septic shock and was treated with ABT for E coli and was receiving IV ABT as outpatient managed by as per patient .Patient reports he was also recently admitted in [facility] and was diagnosed with Diskitis and was discharged yesterday and came back here.Today he started having fever so he decided to come to the ED for evaluation.Upon ER arrival patient V/S was T99.5,HR 119,BP 70/42 and Sat 96% RA. Seen and examined patient in the ER awake,alert and coherent,states he feels much better now than when he came in he said.On further evaluation ,patient has an open wound to sacral area,and patient reports he has been having it since he was discharge home.Patient is also on Levophed drip.Patient denies,nausea,vomiting,chest pain,palpitation,cough and shortness of breath. Latest vital signs heart rate 67, blood pressure 90/50 saturation 99% on room air. Labs: WBC 13 with negative left shift of neutrophils 89, hemoglobin 10, hematocrit 29, platelet count 122. Sodium 132, chloride 100, BUN 34, lactic acid 3.8-2.8 troponin 41. Urinalysis significant for urine bilirubin small, urine urobilinogen two, small esterase, urine WBC 6-10. While in the ER patient received vancomycin 1 g IV, Zosyn 3.375 IV, Tylenol 1000 mg p.o. and fluid re suscitation of NS 30 mL/kilogram over 3 hours and morphine 1 mg IV. We will admit patient for further medical management. 01/28: Patient was seen and evaluated at bedside in room 207. He was awake, alert, and oriented 3, sitting comfortably in his chair during the encounter. He denies dizziness, generalized weakness, chest pain, shortness of breath, na usea, vomiting, or other acute complaints today. He states he is relieved that his blood pressure has been improving. He remains on norepinephrine at 0.04 mcg/kg/hr. A 2D echocardiogram obtained today revealed suspicious vegetations on the mitral valve; cardiology has been consulted and evaluation is pending. Infectious Diseases has also evaluated the patient and recommended continuing vancomycin, ceftriaxone, and metronidazole (Flagyl). Blood cultures have grown gram-positive cocci in chains; final organism identification and sensitivities are pending. The patient is also pending MRI, but current pressor support is not MRI-compatible. He will require weaning off norepinephrine prior to being transported safely for imaging. He denies any new symptoms today and remains hemodynamically stable aside from ongoing vasopressor requirement. 01/29: Patient was seen and evaluated at bedside in room 207. He was awake, a lert, and oriented 3. He reports feeling much better today and denies any active complaints, including chest pain, shortness of breath, dizziness, nausea, or abdominal discomfort. He is now off vasopressors and maintaining stable blood pressure around 110/70, and will be downgraded to PCCU today. Infectious Diseases has recommended a transesophageal echocardiogram (ROBERT) to further evaluate for infective endocarditis; this is currently pending. Cardiology has been consulted for management of suspected endocarditis, and their evaluation is pending as well. He remains on vancomycin, and ceftriaxone was discontinued today. Identification and sensitivities of the bacteremia are still pending. Patient has no additional concerns at this time, and all questions were addressed. 01/30: Patient was seen and evaluated at bedside in room 2. He was awake, alert, and oriented x3. patient continues to do well and denies any active complaints today. Cardiology evaluated the patient and recommended a ROBERT tomorrow to further evaluate the mitral valve vegetation seen on the ROBERT. Patient was informed that his code status will have to be changed to full code for ROBERT, and he verbalized understanding and is in agreement with proceeding to ROBERT. He continues on vancomycin (day 3). Case management has been trying to get the patient placed on a snf facility as the patient was rejected at [facility]. One of his blood cultures grew E coli which was pansensitive. We are still pending the ID and susceptibility of the Gram-positive cocci seen on the other blood culture. Repeat blood cultures were sent today, follow up with the results. Patient is still pending MRI of the spine to evaluate his osteomyelitis, follow up with Radiology. Patient has no other concerns, and all questions were addressed. 01/31/2025 Patient is seen and examined at the bedside today. Vital signs remained stable with blood pressure in 100s/60s, heart rate in 70s, oxygen saturation greater t crane 95% on room air. He has been afebrile. No acute events last night. He reports feeling well and denies fever, chills, chest pain, palpitations, abdominal pain or diarrhea or any new symptoms. He underwent a ROBERT today which showed no evidence of vegetations or endocarditis and the bubble study was negative. He remains on fluconazole, vancomycin and cefepime. Labs WBC 6.2, hemoglobin 9.6, BNP unremarkable, CRP trended down from 60.90 to 37. We will continue to monitor his clinical status. 02/01/2025: The patient was seen and evaluated at bedside in room 227. He was awake, alert, and oriented x3. he reports feeling well today with no new symptoms. He denies shortness of breath, chest pain, palpitations, lightheadedness, generalized weakness, fevers, or any symptoms concerning for ongoing sepsis. He does report constipation, stating that his last bowel movement was2 days ago and he would like some medication for relief; however, he prefers to receive treatment after physical therapy works with him today. A ROBERT was negative for endocarditis. 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 He is currently receiving IV antibiotics, and IV fluconazole was added due to Jennifer albicans growth from his sacral ulcer. His 1st blood culture returned positive for pansensitive E coli; repeat blood cultures are negative so far. He is pending placement for an LTAC, awaiting insurance authorization. The patient remains hemodynamically stable and has no additional complaints at this time. 02.02.2025: The patient was seen and evaluated at bedside in room 227. He was awake, alert, and oriented x3. The patient reports abdominal pain and has not had a bowel movement for the past several days. He was started on lactulose BID yesterday but has not yet had a bowel movement. Abdominal X-ray demonstrates fecal impaction in the distal sigmoid colon and rectum. A mineral oil enema has been ordered. The patient is pending LTAC placement and Infectious Disease recommendations for a minimal anterior epidural abscess. He is currently receiving ampicillin and ceftriaxone. 02.03.2025: Patient is seen and evaluated in room number 227. No new complaints reported initially. WBC is stable at 5.1, hemoglobin remains stable at 9.7, and elect rolytes are within normal limits. Calcium is 8.3 with albumin 1.8; corrected calcium is 10.06, which is within normal range. CRP is trending down at 35, and ALP is elevated at 268. Patient reports having a bowel movement yesterday and passed three to four hard and painful stools. Patient is also experiencing rectal pain, stating that it comes and goes. This pain is likely related to the recent passage of hard stools. We have ordered Anusol-HC 25 mg suppository for symptomatic relief. We are currently pending [facility] approval. 02.04.2025: The patient was seen and evaluated in room 115. Laboratory results show a WBC of 4.6, a platelet count of 114, and a procalcitonin level of 0.52 ng/mL. The patient was denied for [facility], and case management is actively working on placement. REVIEW OF SYSTEMS CONSTITUTIONAL: Denies night sweats. No unintentional weight loss reported. NEUROLOGICAL: Denies headache, amaurosis fugax,sensory deficit, vertigo/spinning sensation, gait abnormalities, or tremors. ENT: No hearing loss, otalgia, otorrhea, rhinitis, rhinorrhea, hoarseness, or sore throat. CARDIOVASCULAR: Denies any exertional angina, dyspnea on exertion, orthopnea, paroxysmal nocturnal dyspnea, palpitations, life-threatening arrhythmias, claudication. PULMONARY: Denies any shortness of breath, cough, phlegm/sputum, hemoptysis, pleuritic chest pain. SLEEP: Denies morning headaches, daytime somnolence or napping. Denies difficulty falling asleep, staying asleep, waking from sleep. Denies knowledge of snoring. GASTROINTESTINAL: Denies any type of dysphagia to either liquids or solids. Denies nausea, vomiting, pyrosis, early satiety, diarrhea or changes in stool consistency or caliber. Denies coffee-ground emesis, hematemesis, hematochezia, or melanotic stools. Patient has abdominal pain due to fecal impaction GENITOURINARY: Denies frequency, urgency, nocturia, hematuria or incontinence ENDOCRINOLOGIC: Denies polyuria, polydipsia, polyphagia or heat/cold intolerances. HEMATOLOGIC: Denies thrombophilia/previous clots, or coagulopathy/bleeding disorders. PSYCHIATRIC: Denies any suicidal or homicidal ideation. Denies hallucinations. PHYSICAL EXAM GENERAL APPEARANCE: The patient is awake, alert, and oriented, in no acute cardiopulmonary distress. NEUROLOGICAL: Motor is 5/5 in bilateral upper and lower extremities proximal to distal. No sensory deficits. HEENT: Face is symmetric. Pupils are equal and reactive. Extraocular movements are intact. NECK: Supple. No thyromegaly. No submental, submandibular, pre-/postauricular, occipital or supraclavicular lymphadenopathy. CHEST: Normal chest expansion. No Telemetry. LUNGS: Absence of any rales, rhonchi or any wheezing. CARDIOVASCULAR: Regular. S1 and S2 normal. No appreciable rubs, murmurs or gallops. ABDOMEN: Soft, nontender, and nondistended. There is no rebound, voluntary guarding, or rigidity. : Deferred. No Mariano. EXTREMITIES: Non-edematous and not cyanotic. No clubbing. Good capillary refill. SKIN: open wound to sacral area Vital Signs (last 8hr) Date Time Temp Pulse Resp B/P (MAP) Pulse Ox O2 Delivery O2 Flow Rate FiO2 02/04/25 12:40 98.1 81 16 114/57 99 Room Air 02/04/25 08:03 98.1 75 16 116/61 100 Room Air 02/04/25 08:00 96 Room Air* 0 21 LABS: Laboratory: Test 02/04/25 04:10 Range/Units White Blood Count 4.6 L 4.8-10.8 K/uL Red Blood Count 3.07 L 4.50-6.20 MIL/uL Hemoglobin 10.0 L 14.0-18.0 g/dL Hematocrit 29.0 L 42-54 % Mean Corpuscular Volume 94.5 79-99 fL Mean Corpuscular Hemoglobin 32.6 27.0-33.0 pg Mean Corpuscular Hemoglobin Concent 34.5 32.0-36.0 g/dL Red Cell Distribution Width 15.4 11.0-15.5 % Platelet Count 114 L 130-400 K/uL Mean Platelet Volume 8.9 7.5-10.5 fL Immature Granulocyte % (Auto) 0.7 0-1 % Neutrophils (%) (Auto) 67.3 40.0-77.0 % Lymphocytes (%) (Auto) 24.2 21.0-51.0 % Monocytes (%) (Auto) 6.3 3.0-13.0 % Eosinophils (%) (Auto) 1.3 0.0-8.0 % Basophils (%) (Auto) 0.2 0.0-5.0 % Neutrophils # (Auto) 3.1 1.8-7.7 K/uL Lymphocytes # (Auto) 1.1 1.0-4.8 K/uL Monocytes # (Auto) 0.3 0.1-1.0 K/uL Eosinophils # (Auto) 0.06 0.00-0.70 K/uL Basophils # (Auto) 0.01 0.00-0.20 K/uL Absolute Immature Granulocyte (auto 0.03 0-1 K/uL Nucleated Red Blood Cells 0.0 0.0-0.19 % Sodium Level 139 136-145 mmol/L Potassium Level 4.0 3.5-5.1 mmol/L Chloride Level 105 101-111 mmol/L Carbon Dioxide Level 29 21-32 mmol/L Blood Urea Nitrogen 9 7-18 mg/dL Creatinine 0.7 0.5-1.3 mg/dL Glomerular Filtration Rate Calc 97 >90 mL/min Random Glucose 101 70-105 mg/dL Total Calcium 8.4 L 8.5-10.1 mg/dL Procalcitonin 0.52 H 0.05-0.5 ng/mL Current Medications Medications (Trade) Dose Ordered Sig/Panchito Route PRN Reason Start Time Stop Time Status Last Admin Dose Admin Acetaminophen (TYLenol 325MG TAB) 650 mg Q4H PRN PO MILD PAIN (1-3) 01/27/25 20:00 02/26/25 19:59 Acetaminophen (TYLenol 325MG TAB) 650 mg Q6H PRN PO TEMPERATURE GREATER THAN 101.5 01/27/25 20:00 02/26/25 19:59 Acetaminophen/ Hydrocodone Bitart (NORco 5/325MG) 1 tab Q6H PRN PO MODERATE PAIN (4-6) 01/27/25 16:00 02/01/25 12:00 DC 01/31/25 20:35 1 TAB Ampicillin Sodium (Ampicillin 2gm+NS 100ml) 2 gm Q6H IV 02/01/25 12:00 02/22/25 11:59 02/04/25 11:13 2 GM Cefepime HCl (MAXipime 2 gm vial) 2 gm Q12H IVPB 01/27/25 21:30 02/01/25 11:42 DC 02/01/25 09:34 2 GM Ceftriaxone Sodium (Rocephin 2gm Inj) 2 gm Q12H IVPB 02/01/25 12:00 02/11/25 11:59 02/04/25 11:43 2 GM Famotidine (Pepcid 20mg Tab) 20 mg DAILY PO 01/28/25 09:00 02/27/25 08:59 02/04/25 08:29 20 MG Fluconazole (DiFLUCan 100 mg TAB) 200 mg DAILY PO 01/31/25 09:00 03/02/25 08:59 02/04/25 08:29 200 MG Heparin Sodium (Porcine) (HEParin 5,000 UNIT VIAL) 5,000 unit Q12H SQ 01/28/25 09:00 02/27/25 08:59 02/04/25 08:39 5,000 UNIT Hydrocortisone Acetate (anuSOL-HC 25MG SUPP) 1 supp BID IN 02/03/25 21:00 03/05/25 20:59 02/04/25 08:29 1 SUPP Lactated Ringer's 1,000 ml @ 75 mls/hr [id number] IV 01/27/25 21:30 02/04/25 06:36 DC 02/04/25 02:06 75 MLS/HR Lactulose (Constulose 20gm/ 30ml Udcup) 20 gm BID PO 02/02/25 09:00 03/04/25 08:59 02/04/25 08:28 20 GM Lactulose (Constulose 20gm/ 30ml Udcup) 20 gm BID PRN PO CONSTIPATION 02/01/25 16:30 02/04/25 06:36 DC 02/01/25 21:31 20 GM Magnesium Sulfate 50 ml @ 0 mls/hr PROTOCOL PRN IV OTHER [SEE ORDER COMMENTS] 01/27/25 20:00 02/26/25 19:59 01/31/25 08:41 25 MLS/HR Metronidazole/ Sodium Chloride (flaGYL) 500 mg Q8H IV 01/27/25 21:30 01/30/25 23:42 DC 01/30/25 22:31 500 MG Morphine Sulfate (morPHINE 2MG SYG) 1 mg Q4H PRN IVP SEVERE PAIN (7-10) 01/27/25 15:30 01/27/25 15:47 DC Norepinephrine 250 ml @ 0 mls/hr PROTOCOL IV 01/27/25 17:00 01/29/25 14:46 DC 01/27/25 17:50 26.25 MLS/HR Nystatin (NystOP 15 GM POWDER) coccyx BID TP 01/30/25 21:00 03/01/25 20:59 02/04/25 08:33 1 APPL Ondansetron HCl (zoFRAN 4MG INJ) 4 mg Q6H PRN IV NAUSEA/VOMITING 01/27/25 20:00 02/26/25 19:59 02/01/25 13:10 4 MG Pharmacy Profile Note (Pharmacy Communication) 1 each AD MISC 01/28/25 10:30 01/28/25 10:21 DC Piperacillin Sod/ Tazobactam Sod 50 ml @ 12.5 mls/hr Q8H IV 01/27/25 22:00 01/27/25 21:32 DC Potassium Chloride 100 ml @ 100 mls/hr AD PRN IV POTASSIUM PROTOCOL 01/27/25 20:00 02/26/25 19:59 Potassium Chloride (K-Dur/Klor-Con 20meq) 20 meq AD PRN PO POTASSIUM PROTOCOL 01/27/25 20:00 02/26/25 19:59 02/03/25 16:52 20 MEQ Potassium Chloride (KCl 10% Elixir 20meq/15ml) 20 meq AD PRN PO POTASSIUM PROTOCOL 01/27/25 20:00 02/26/25 19:59 Sodium Chloride 1,000 ml @ 100 mls/hr Q10H IV 01/27/25 20:00 01/28/25 15:59 DC 01/27/25 20:04 100 MLS/HR Vancomycin HCl 250 ml @ 125 mls/hr BID@0800,2000 IV 01/31/25 08:00 02/01/25 11:42 DC 02/01/25 09:34 125 MLS/HR Vancomycin HCl 250 ml @ 125 mls/hr ONCE IV 01/27/25 20:00 01/27/25 20:09 DC Vancomycin HCl 250 ml @ 125 mls/hr Q24H IV 01/28/25 20:00 01/30/25 23:59 DC 01/30/25 20:34 125 MLS/HR Vancomycin HCl (Vancomycin Protocol) 1 each AD IV 01/27/25 20:30 02/01/25 11:42 DC Wound Care/ Dressing Products (Venelex Ointment) apply to coccyx BID TP 01/28/25 21:00 02/27/25 20:59 02/04/25 08:33 60 GM DIAGNOSTICS / RADIOLOGY: [ ] ASSESSMENT: Septic shock with recent diskitis POA Stage 2 pressure ulcer on coccyx POA Acute kidney injury POA, resolved Suspected [place] valve infective endocarditis, POA, ruled out Acute normocytic normochromic anemia POA Acute thrombocytopenia Mild hyponatremia POA Mild hypochloremia POA Lactic acidosis POA Suspected acute urinary tract infection POA, negative cultures PLAN: Pending placement in LTAC 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 * SOFA score of 3 on 01/28, lactic acid 3.8, bilirubin 1.4, creatinine 0.7, on norepinephrine 0.04 mcg/kg/min, platelet count of 122. * Lactic acid trend: 3.8> 2.8> 1.2>1.1>1.1, procalcitonin 16.94 (01/28/2025). * Discontinued cefepime2 g q.12 and vancomycin, and started the patient on ampicillin 2g IV(day 3), ceftriaxone 2g IV (day 3) fluconazole[day 4] * Infectious diseases on board follow their recommendations. * MR spine revealed Fluid signal intensity at L4-L5 level with subtle erosive changes at the inferior endplate of L4 and superior endplate of the L5 vertebra with bone marrow edema. 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 * Continue to monitor vitals, CRP, CBC Suspected infective endocarditis of the [place] valve: * Patient's blood cultures grew Gram-positive cocci in chains and Gram-negative rods. * Gram-negative rods identified as pansensitive E coli. * Echocardiography revealed small anterior mitral valve tip vegetation versus myxomatous leaflet, Follow up with ROBERT. * ROBERT done today showed no evidence of vegetations or endocarditis and the bubble study was negative * Continue with the current antibiotic regimen. Stage II pressure ulcer on coccyx with granulation and minimal slough with mild periwound erythema and no drainage: * Patient has an open wound to the sacral area. * Wound care consulted, they recommended Venelex b.i.d. and p.r.n.. * Place the patient on a waffle mattress, keep the wounds clean and dry. * Frequent repositioning q.2 hours. * Wound culture positive for Enterococcus faecalis sensitive to ampicillin, gentamicin, penicillin, vancomycin and Jennifer albicans. * Continue current IV antibiotic management. * Continue to serially assess the lesion. DVT prophylaxis with heparin 5000 b.i.d.. GI prophylaxis with Pepcid 20 mg p.o. daily ATTESTATION BY PHYSICIAN I have seen and examined the patient. I reviewed the documentation, medical decision making, and treatment plan as noted by the resident provider above. I agree with the findings and plan of care. Arnaldo Nuñez MD, LAKSHMI MD Feb 04, 2025 15:46
--- NOTE | 2025-02-04 15:53 | PN ---
INFECTIOUS DISEASE PROGRESS NOTE Date of Service: Feb 04, 2025 SUBJECTIVE: This is a 74-year-old male patient who was seen and examined at bedside in room 227. Patient is awake, alert and oriented x3. Patient reported unable to participate with physical therapy this morning due to had a diarrhea episode. No nausea or vomiting. No fever, temperature is 98.1. We will continue on ampicillin, ceftriaxone and fluconazole. PHYSICAL EXAM EYES: Anicteric. Pupils equal and reactive. HENT: No oral thrush seen, moist Oral mucosa. NECK: Supple, no JVD or thyromegaly. LUNGS: Good air entry. No rales, no rhonchi. CARDIOVASCULAR: S1, S2 regular. No murmur heard. ABDOMEN: Soft, non tender, bowel sounds present. CENTRAL NERVOUS SYSTEM: Awake, alert, oriented x 3. SKIN: No rashes, no swelling. LYMPHATICS: No peripheral lymphadenopathy. MUSCULOSKELETAL: No joint swelling, erythema or tenderness. EXTREMITIES: No cyanosis or clubbing BACK: Stage II coccygeal ulcer. GENITOURINARY: No dysuria or hematuria Vital Sign (Last 12 Hours) 02/04/25 02/04/25 02/04/25 02/04/25 04:00 08:00 08:03 12:40 Temp 98.1 98.1 98.1 Pulse 76 75 81 Resp 16 16 16 B/P (MAP) 118/58 116/61 114/57 Pulse Ox 97 96 100 99 O2 Delivery Room Air Room Air* Room Air Room Air O2 Flow Rate 0 FiO2 21 Intake & Output (last 24hrs) 02/03/25 02/03/25 02/04/25 15:00 23:00 07:00 Intake Total 350.0 ml 675.0 ml Output Total 500 ml 400 ml Balance -150.0 ml 275.0 ml LABS: Laboratory: Test 02/04/25 04:10 Range/Units White Blood Count 4.6 L 4.8-10.8 K/uL Red Blood Count 3.07 L 4.50-6.20 MIL/uL Hemoglobin 10.0 L 14.0-18.0 g/dL Hematocrit 29.0 L 42-54 % Mean Corpuscular Volume 94.5 79-99 fL Mean Corpuscular Hemoglobin 32.6 27.0-33.0 pg Mean Corpuscular Hemoglobin Concent 34.5 32.0-36.0 g/dL Red Cell Distribution Width 15.4 11.0-15.5 % Platelet Count 114 L 130-400 K/uL Mean Platelet Volume 8.9 7.5-10.5 fL Immature Granulocyte % (Auto) 0.7 0-1 % Neutrophils (%) (Auto) 67.3 40.0-77.0 % Lymphocytes (%) (Auto) 24.2 21.0-51.0 % Monocytes (%) (Auto) 6.3 3.0-13.0 % Eosinophils (%) (Auto) 1.3 0.0-8.0 % Basophils (%) (Auto) 0.2 0.0-5.0 % Neutrophils # (Auto) 3.1 1.8-7.7 K/uL Lymphocytes # (Auto) 1.1 1.0-4.8 K/uL Monocytes # (Auto) 0.3 0.1-1.0 K/uL Eosinophils # (Auto) 0.06 0.00-0.70 K/uL Basophils # (Auto) 0.01 0.00-0.20 K/uL Absolute Immature Granulocyte (auto 0.03 0-1 K/uL Nucleated Red Blood Cells 0.0 0.0-0.19 % Sodium Level 139 136-145 mmol/L Potassium Level 4.0 3.5-5.1 mmol/L Chloride Level 105 101-111 mmol/L Carbon Dioxide Level 29 21-32 mmol/L Blood Urea Nitrogen 9 7-18 mg/dL Creatinine 0.7 0.5-1.3 mg/dL Glomerular Filtration Rate Calc 97 >90 mL/min Random Glucose 101 70-105 mg/dL Total Calcium 8.4 L 8.5-10.1 mg/dL Procalcitonin 0.52 H 0.05-0.5 ng/mL ASSESSMENT: E coli bacteremia. Lumbar spine osteomyelitis. Mitral valve vegetation, ruled out. Sepsis. Stage II coccygeal ulcer with Jennifer albicans infection. Urinary tract infection. Leukocytosis, resolved. Diabetes mellitus. PLAN: Continue ceftriaxone. Continue fluconazole. Continue ampicillin. Continue cefepime IV. Continue GI prophylaxis. Continue pain management. Continue wound care. Continue antidiabetics. Patient will need 6 weeks of antibiotics. Patient is pending insurance approval to [facility]. This case was reviewed and discussed with my supervising physician Dr. Francisca and the above assessment and plan was formulated and agreed upon. ATTESTATION BY PHYSICIAN I have seen and examined the patient. I reviewed the documentation, medical decision making, and treatment plan as noted by the mid-level provider above. I agree with the findings and plan of care. MAURICIO GANDHI MD, MIRTA L [facility] Feb 04, 2025 15:53
[2025-02-05] VITALS: BP 122/61; PULSE 71; RESP 18; TEMP 98.1
[2025-02-05 04:00] VITALS: BP 116/57; PULSE 68; RESP 18; TEMP 98
[2025-02-05 05:21] LABS: IMMATURE GRANULOCYTE ABSOLUTE 0.02 K/uL (0-1); NUCLEATED RED BLOOD CELLS 0.0 % (0.0-0.19); PLATELET COUNT (AUTO) 106 K/uL (130-400); RED BLOOD CELL COUNT(AUTO) 3.07 MIL/uL (4.50-6.20); RED CELL DISTRIBUTION WIDTH 15.4 % (11.0-15.5); WHITE BLOOD COUNT (AUTO) 5.2 K/uL (4.8-10.8)
[2025-02-05 05:40] LABS: CREATININE 0.7 mg/dL (0.5-1.3); GLOMERULAR FILTR. RATE CALC 97.0 mL/min (>90); GLUCOSE,RANDOM 97.0 mg/dL (70-105); SODIUM SERUM 140.0 mmol/L (136-145); UREA NITROGEN, BLOOD 11.0 mg/dL (7-18)
[2025-02-05 08:00] VITALS: BP 116/81; PULSE 73; RESP 18; TEMP 98; O2SAT 99
[2025-02-05 12:00] VITALS: BP 127/62; PULSE 80; RESP 18; TEMP 98.7
--- NOTE | 2025-02-05 12:32 | PN ---
INFECTIOUS DISEASE PROGRESS NOTE Date of Service: Feb 05, 2025 SUBJECTIVE: Patient was seen in room 327. Remains afebrile, temperature is 98.1.. Reported that he was sitting up to the bedside chair earlier this morning. We will continue on ampicillin, ceftriaxone and fluconazole. Patient is pending an insurance appeal approval to [facility]. PHYSICAL EXAM EYES: Anicteric. Pupils equal and reactive. HENT: No oral thrush seen, moist Oral mucosa. NECK: Supple, no JVD or thyromegaly. LUNGS: Good air entry. No rales, no rhonchi. CARDIOVASCULAR: S1, S2 regular. No murmur heard. ABDOMEN: Soft, non tender, bowel sounds present. CENTRAL NERVOUS SYSTEM: Awake, alert, oriented x 3. SKIN: No rashes, no swelling. LYMPHATICS: No peripheral lymphadenopathy. MUSCULOSKELETAL: No joint swelling, erythema or tenderness. EXTREMITIES: No cyanosis or clubbing. BACK: Stage II coccygeal ulcer. GENITOURINARY: No dysuria or hematuria. Vital Sign (Last 12 Hours) 02/05/25 02/05/25 04:00 08:00 Temp 98.1 98.1 Pulse 68 73 Resp 18 18 B/P (MAP) 116/57 116/81 Pulse Ox 98 99 O2 Delivery Room Air Room Air Intake & Output (last 24hrs) 02/04/25 02/04/25 02/05/25 15:00 23:00 07:00 Intake Total 200.0 ml Output Total 300 ml 200 ml Balance -300 ml 0 ml LABS: Laboratory: Test 02/05/25 05:08 02/04/25 04:10 Range/Units White Blood Count 5.2 4.8-10.8 K/uL Red Blood Count 3.07 L 4.50-6.20 MIL/uL Hemoglobin 9.9 L 14.0-18.0 g/dL Hematocrit 29.9 L 42-54 % Mean Corpuscular Volume 97.4 79-99 fL Mean Corpuscular Hemoglobin 32.2 27.0-33.0 pg Mean Corpuscular Hemoglobin Concent 33.1 32.0-36.0 g/dL Red Cell Distribution Width 15.4 11.0-15.5 % Platelet Count 106 L 130-400 K/uL Mean Platelet Volume 8.7 7.5-10.5 fL Immature Granulocyte % (Auto) 0.4 0-1 % Neutrophils (%) (Auto) 55.2 40.0-77.0 % Lymphocytes (%) (Auto) 36.2 21.0-51.0 % Monocytes (%) (Auto) 6.8 3.0-13.0 % Eosinophils (%) (Auto) 1.0 0.0-8.0 % Basophils (%) (Auto) 0.4 0.0-5.0 % Neutrophils # (Auto) 2.9 1.8-7.7 K/uL Lymphocytes # (Auto) 1.9 1.0-4.8 K/uL Monocytes # (Auto) 0.4 0.1-1.0 K/uL Eosinophils # (Auto) 0.05 0.00-0.70 K/uL Basophils # (Auto) 0.02 0.00-0.20 K/uL Absolute Immature Granulocyte (auto 0.02 0-1 K/uL Nucleated Red Blood Cells 0.0 0.0-0.19 % Sodium Level 140 136-145 mmol/L Potassium Level 4.0 3.5-5.1 mmol/L Chloride Level 107 101-111 mmol/L Carbon Dioxide Level 28 21-32 mmol/L Blood Urea Nitrogen 11 7-18 mg/dL Creatinine 0.7 0.5-1.3 mg/dL Glomerular Filtration Rate Calc 97 >90 mL/min Random Glucose 97 70-105 mg/dL Total Calcium 8.3 L 8.5-10.1 mg/dL Procalcitonin 0.52 H 0.05-0.5 ng/mL ASSESSMENT: E coli bacteremia. Lumbar spine osteomyelitis. Mitral valve vegetation, ruled out. Sepsis. Stage II coccygeal ulcer with Jennifer albicans infection. Urinary tract infection. Leukocytosis, resolved. Diabetes mellitus. PLAN: Continue ceftriaxone. Continue fluconazole. Continue ampicillin. Continue cefepime IV. Continue GI prophylaxis. Continue pain management. Continue wound care. Continue antidiabetics. Patient will need 6 weeks of antibiotics. Pending insurance appeal approval to [facility]. This case was reviewed and discussed with my supervising physician Dr. Gandhi and the above assessment and plan was formulated and agreed upon. ATTESTATION BY PHYSICIAN I have seen and examined the patient. I reviewed the documentation, medical decision making, and treatment plan as noted by the mid-level provider above. I agree with the findings and plan of care. MAURICIO GANDHI MD, MIRTA L [facility] Feb 05, 2025 12:32
--- NOTE | 2025-02-05 15:54 | PN ---
[facility] PROGRESS NOTE Date of Service: Feb 05, 2025 Time of Service: 15:54 SUBJECTIVE: This is a 74-year-old male past medical history of hypertension, diabetes, hyperlipidemia ,UTI due to Ecoli and obesity with past surgical history of right colectomy and polyps removal who was brought by EMS to the ED for complaints of fever and generalized body weakness.Patient was recently admitted in this facility for septic shock and was treated with ABT for E coli and was receiving IV ABT as outpatient managed by as per patient .Patient reports he was also recently admitted in [place] and was diagnosed with Diskitis and was discharged yesterday and came back here.Today he started having fever so he decided to come to the ED for evaluation.Upon ER arrival patient V/S was T99.5,HR 119,BP 70/42 and Sat 96% RA. Seen and examined patient in the ER awake,alert and coherent,states he feels much better now than when he came in he said.On further evaluation ,patient has an open wound to sacral area,and patient reports he has been having it since he was discharge home.Patient is also on Levophed drip.Patient denies,nausea,vomiting,chest pain,palpitation,cough and shortness of breath. Latest vital signs heart rate 67, blood pressure 90/50 saturation 99% on room air. Labs: WBC 13 with negative left shift of neutrophils 89, hemoglobin 10, hematocrit 29, platelet count 122. Sodium 132, chloride 100, BUN 34, lactic acid 3.8-2.8 troponin 41. Urinalysis significant for urine bilirubin small, urine urobilinogen two, small esterase, urine WBC 6-10. While in the ER patient received vancomycin 1 g IV, Zosyn 3.375 IV, Tylenol 1000 mg p.o. and fluid re suscitation of NS 30 mL/kilogram over 3 hours and morphine 1 mg IV. We will admit patient for further medical management. 01/28: Patient was seen and evaluated at bedside in room 207. He was awake, alert, and oriented 3, sitting comfortably in his chair during the encounter. He denies dizziness, generalized weakness, chest pain, shortness of breath, na usea, vomiting, or other acute complaints today. He states he is relieved that his blood pressure has been improving. He remains on norepinephrine at 0.04 mcg/kg/hr. A 2D echocardiogram obtained today revealed suspicious vegetations on the mitral valve; cardiology has been consulted and evaluation is pending. Infectious Diseases has also evaluated the patient and recommended continuing vancomycin, ceftriaxone, and metronidazole (Flagyl). Blood cultures have grown gram-positive cocci in chains; final organism identification and sensitivities are pending. The patient is also pending MRI, but current pressor support is not MRI-compatible. He will require weaning off norepinephrine prior to being transported safely for imaging. He denies any new symptoms today and remains hemodynamically stable aside from ongoing vasopressor requirement. 01/29: Patient was seen and evaluated at bedside in room 207. He was awake, a lert, and oriented 3. He reports feeling much better today and denies any active complaints, including chest pain, shortness of breath, dizziness, nausea, or abdominal discomfort. He is now off vasopressors and maintaining stable blood pressure around 110/70, and will be downgraded to PCCU today. Infectious Diseases has recommended a transesophageal echocardiogram (ROBERT) to further evaluate for infective endocarditis; this is currently pending. Cardiology has been consulted for management of suspected endocarditis, and their evaluation is pending as well. He remains on vancomycin, and ceftriaxone was discontinued today. Identification and sensitivities of the bacteremia are still pending. Patient has no additional concerns at this time, and all questions were addressed. 01/30: Patient was seen and evaluated at bedside in room 2. He was awake, alert, and oriented x3. patient continues to do well and denies any active complaints today. Cardiology evaluated the patient and recommended a ROBERT tomorrow to further evaluate the mitral valve vegetation seen on the ROBERT. Patient was informed that his code status will have to be changed to full code for ROBERT, and he verbalized understanding and is in agreement with proceeding to ROBERT. He continues on vancomycin (day 3). Case management has been trying to get the patient placed on a intermediate facility as the patient was rejected at [facility]. One of his blood cultures grew E coli which was pansensitive. We are still pending the ID and susceptibility of the Gram-positive cocci seen on the other blood culture. Repeat blood cultures were sent today, follow up with the results. Patient is still pending MRI of the spine to evaluate his osteomyelitis, follow up with Radiology. Patient has no other concerns, and all questions were addressed. 01/31/2025 Patient is seen and examined at the bedside today. Vital signs remained stable with blood pressure in 100s/60s, heart rate in 70s, oxygen saturation greater t crane 95% on room air. He has been afebrile. No acute events last night. He reports feeling well and denies fever, chills, chest pain, palpitations, abdominal pain or diarrhea or any new symptoms. He underwent a ROBERT today which showed no evidence of vegetations or endocarditis and the bubble study was negative. He remains on fluconazole, vancomycin and cefepime. Labs WBC 6.2, hemoglobin 9.6, BNP unremarkable, CRP trended down from 60.90 to 37. We will continue to monitor his clinical status. 02/01/2025: The patient was seen and evaluated at bedside in room 227. He was awake, alert, and oriented x3. he reports feeling well today with no new symptoms. He denies shortness of breath, chest pain, palpitations, lightheadedness, generalized weakness, fevers, or any symptoms concerning for ongoing sepsis. He does report constipation, stating that his last bowel movement was2 days ago and he would like some medication for relief; however, he prefers to receive treatment after physical therapy works with him today. A ROBERT was negative for endocarditis. 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 He is currently receiving IV antibiotics, and IV fluconazole was added due to Jennifer albicans growth from his sacral ulcer. His 1st blood culture returned positive for pansensitive E coli; repeat blood cultures are negative so far. He is pending placement for an LTAC, awaiting insurance authorization. The patient remains hemodynamically stable and has no additional complaints at this time. 02.02.2025: The patient was seen and evaluated at bedside in room 227. He was awake, alert, and oriented x3. The patient reports abdominal pain and has not had a bowel movement for the past several days. He was started on lactulose BID yesterday but has not yet had a bowel movement. Abdominal X-ray demonstrates fecal impaction in the distal sigmoid colon and rectum. A mineral oil enema has been ordered. The patient is pending LTAC placement and Infectious Disease recommendations for a minimal anterior epidural abscess. He is currently receiving ampicillin and ceftriaxone. 02.03.2025: Patient is seen and evaluated in room number 227. No new complaints reported initially. WBC is stable at 5.1, hemoglobin remains stable at 9.7, and elect rolytes are within normal limits. Calcium is 8.3 with albumin 1.8; corrected calcium is 10.06, which is within normal range. CRP is trending down at 35, and ALP is elevated at 268. Patient reports having a bowel movement yesterday and passed three to four hard and painful stools. Patient is also experiencing rectal pain, stating that it comes and goes. This pain is likely related to the recent passage of hard stools. We have ordered Anusol-HC 25 mg suppository for symptomatic relief. We are currently pending [facility] approval. 02.04.2025: The patient was seen and evaluated in room 115. Laboratory results show a WBC of 4.6, a platelet count of 114, and a procalcitonin level of 0.52 ng/mL. The patient was denied for [facility], and case management is actively working on placement. 02.05.2025: The patient was seen and evaluated in room 327. Laboratory results show a WBC of 5.2,and a platelet count of 106. The patient was denied for [facility], and case management is actively working on placement. Patient reported of having three episodes of diarrhea yesterday morning but he denied having any episode of loose stool today. REVIEW OF SYSTEMS CONSTITUTIONAL: Denies night sweats. No unintentional weight loss reported. NEUROLOGICAL: Denies headache, amaurosis fugax,sensory deficit, vertigo/spinning sensation, gait abnormalities, or tremors. ENT: No hearing loss, otalgia, otorrhea, rhinitis, rhinorrhea, hoarseness, or sore throat. CARDIOVASCULAR: Denies any exertional angina, dyspnea on exertion, orthopnea, paroxysmal nocturnal dyspnea, palpitations, life-threatening arrhythmias, claudication. PULMONARY: Denies any shortness of breath, cough, phlegm/sputum, hemoptysis, pleuritic chest pain. SLEEP: Denies morning headaches, daytime somnolence or napping. Denies difficulty falling asleep, staying asleep, waking from sleep. Denies knowledge of snoring. GASTROINTESTINAL: Denies any type of dysphagia to either liquids or solids. Denies nausea, vomiting, pyrosis, early satiety, diarrhea or changes in stool consistency or caliber. Denies coffee-ground emesis, hematemesis, hematochezia, or melanotic stools. GENITOURINARY: Denies frequency, urgency, nocturia, hematuria or incontinence ENDOCRINOLOGIC: Denies polyuria, polydipsia, polyphagia or heat/cold intoler ances. HEMATOLOGIC: Denies thrombophilia/previous clots, or coagulopathy/bleeding disorders. PSYCHIATRIC: Denies any suicidal or homicidal ideation. Denies hallucinations. PHYSICAL EXAM GENERAL APPEARANCE: The patient is awake, alert, and oriented, in no acute cardiopulmonary distress. NEUROLOGICAL: Motor is 5/5 in bilateral upper and lower extremities proximal to distal. No sensory deficits. HEENT: Face is symmetric. Pupils are equal and reactive. Extraocular movements are intact. NECK: Supple. No thyromegaly. No submental, submandibular, pre-/postauricular, occipital or supraclavicular lymphadenopathy. CHEST: Normal chest expansion. No Telemetry. LUNGS: Absence of any rales, rhonchi or any wheezing. CARDIOVASCULAR: Regular. S1 and S2 normal. No appreciable rubs, murmurs or gallops. ABDOMEN: Soft, nontender, and nondistended. There is no rebound, voluntary guarding, or rigidity. : Deferred. No Mariano. EXTREMITIES: Non-edematous and not cyanotic. No clubbing. Good capillary refill. SKIN: open wound to sacral area Vital Signs (last 8hr) Date Time Temp Pulse Resp B/P (MAP) Pulse Ox O2 Delivery O2 Flow Rate FiO2 02/05/25 12:00 98.8 80 18 127/62 98 Room Air 02/05/25 08:00 98.1 73 18 116/81 99 Room Air 02/05/25 08:00 99 Room Air* 0 21 LABS: Laboratory: Test 02/05/25 05:08 02/04/25 04:10 Range/Units White Blood Count 5.2 4.8-10.8 K/uL Red Blood Count 3.07 L 4.50-6.20 MIL/uL Hemoglobin 9.9 L 14.0-18.0 g/dL Hematocrit 29.9 L 42-54 % Mean Corpuscular Volume 97.4 79-99 fL Mean Corpuscular Hemoglobin 32.2 27.0-33.0 pg Mean Corpuscular Hemoglobin Concent 33.1 32.0-36.0 g/dL Red Cell Distribution Width 15.4 11.0-15.5 % Platelet Count 106 L 130-400 K/uL Mean Platelet Volume 8.7 7.5-10.5 fL Immature Granulocyte % (Auto) 0.4 0-1 % Neutrophils (%) (Auto) 55.2 40.0-77.0 % Lymphocytes (%) (Auto) 36.2 21.0-51.0 % Monocytes (%) (Auto) 6.8 3.0-13.0 % Eosinophils (%) (Auto) 1.0 0.0-8.0 % Basophils (%) (Auto) 0.4 0.0-5.0 % Neutrophils # (Auto) 2.9 1.8-7.7 K/uL Lymphocytes # (Auto) 1.9 1.0-4.8 K/uL Monocytes # (Auto) 0.4 0.1-1.0 K/uL Eosinophils # (Auto) 0.05 0.00-0.70 K/uL Basophils # (Auto) 0.02 0.00-0.20 K/uL Absolute Immature Granulocyte (auto 0.02 0-1 K/uL Nucleated Red Blood Cells 0.0 0.0-0.19 % Sodium Level 140 136-145 mmol/L Potassium Level 4.0 3.5-5.1 mmol/L Chloride Level 107 101-111 mmol/L Carbon Dioxide Level 28 21-32 mmol/L Blood Urea Nitrogen 11 7-18 mg/dL Creatinine 0.7 0.5-1.3 mg/dL Glomerular Filtration Rate Calc 97 >90 mL/min Random Glucose 97 70-105 mg/dL Total Calcium 8.3 L 8.5-10.1 mg/dL Procalcitonin 0.52 H 0.05-0.5 ng/mL Current Medications Medications (Trade) Dose Ordered Sig/Panchito Route PRN Reason Start Time Stop Time Status Last Admin Dose Admin Acetaminophen (TYLenol 325MG TAB) 650 mg Q4H PRN PO MILD PAIN (1-3) 01/27/25 20:00 02/26/25 19:59 Acetaminophen (TYLenol 325MG TAB) 650 mg Q6H PRN PO TEMPERATURE GREATER THAN 101.5 01/27/25 20:00 02/26/25 19:59 Acetaminophen/ Hydrocodone Bitart (NORco 5/325MG) 1 tab Q6H PRN PO MODERATE PAIN (4-6) 01/27/25 16:00 02/01/25 12:00 DC 01/31/25 20:35 1 TAB Ampicillin Sodium (Ampicillin 2gm+NS 100ml) 2 gm Q6H IV 02/01/25 12:00 02/22/25 11:59 02/05/25 12:53 2 GM Cefepime HCl (MAXipime 2 gm vial) 2 gm Q12H IVPB 01/27/25 21:30 02/01/25 11:42 DC 02/01/25 09:34 2 GM Ceftriaxone Sodium (Rocephin 2gm Inj) 2 gm Q12H IVPB 02/01/25 12:00 02/11/25 11:59 02/05/25 12:53 2 GM Famotidine (Pepcid 20mg Tab) 20 mg DAILY PO 01/28/25 09:00 02/27/25 08:59 02/05/25 07:47 20 MG Fluconazole (DiFLUCan 100 mg TAB) 200 mg DAILY PO 01/31/25 09:00 03/02/25 08:59 02/05/25 07:47 200 MG Heparin Sodium (Porcine) (HEParin 5,000 UNIT VIAL) 5,000 unit Q12H SQ 01/28/25 09:00 02/27/25 08:59 02/05/25 07:54 5,000 UNIT Hydrocortisone Acetate (anuSOL-HC 25MG SUPP) 1 supp BID IN 02/03/25 21:00 03/05/25 20:59 02/05/25 07:47 1 SUPP Lactated Ringer's 1,000 ml @ 75 mls/hr [id number] IV 01/27/25 21:30 02/04/25 06:36 DC 02/04/25 02:06 75 MLS/HR Lactulose (Constulose 20gm/ 30ml Udcup) 20 gm BID PO 02/02/25 09:00 02/05/25 06:22 DC 02/04/25 08:28 20 GM Lactulose (Constulose 20gm/ 30ml Udcup) 20 gm BID PRN PO CONSTIPATION 02/01/25 16:30 02/04/25 06:36 DC 02/01/25 21:31 20 GM Magnesium Sulfate 50 ml @ 0 mls/hr PROTOCOL PRN IV OTHER [SEE ORDER COMMENTS] 01/27/25 20:00 02/26/25 19:59 01/31/25 08:41 25 MLS/HR Metronidazole/ Sodium Chloride (flaGYL) 500 mg Q8H IV 01/27/25 21:30 01/30/25 23:42 DC 01/30/25 22:31 500 MG Morphine Sulfate (morPHINE 2MG SYG) 1 mg Q4H PRN IVP SEVERE PAIN (7-10) 01/27/25 15:30 01/27/25 15:47 DC Norepinephrine 250 ml @ 0 mls/hr PROTOCOL IV 01/27/25 17:00 01/29/25 14:46 DC 01/27/25 17:50 26.25 MLS/HR Nystatin (NystOP 15 GM POWDER) coccyx BID TP 01/30/25 21:00 03/01/25 20:59 02/05/25 07:47 1 APPL Ondansetron HCl (zoFRAN 4MG INJ) 4 mg Q6H PRN IV NAUSEA/VOMITING 01/27/25 20:00 02/26/25 19:59 02/01/25 13:10 4 MG Pharmacy Profile Note (Pharmacy Communication) 1 each AD MISC 01/28/25 10:30 01/28/25 10:21 DC Piperacillin Sod/ Tazobactam Sod 50 ml @ 12.5 mls/hr Q8H IV 01/27/25 22:00 01/27/25 21:32 DC Potassium Chloride 100 ml @ 100 mls/hr AD PRN IV POTASSIUM PROTOCOL 01/27/25 20:00 02/26/25 19:59 Potassium Chloride (K-Dur/Klor-Con 20meq) 20 meq AD PRN PO POTASSIUM PROTOCOL 01/27/25 20:00 02/26/25 19:59 02/03/25 16:52 20 MEQ Potassium Chloride (KCl 10% Elixir 20meq/15ml) 20 meq AD PRN PO POTASSIUM PROTOCOL 01/27/25 20:00 02/26/25 19:59 Sodium Chloride 1,000 ml @ 100 mls/hr Q10H IV 01/27/25 20:00 01/28/25 15:59 DC 01/27/25 20:04 100 MLS/HR Vancomycin HCl 250 ml @ 125 mls/hr BID@0800,1999 IV 01/31/25 08:00 02/01/25 11:42 DC 02/01/25 09:34 125 MLS/HR Vancomycin HCl 250 ml @ 125 mls/hr ONCE IV 01/27/25 20:00 01/27/25 20:09 DC Vancomycin HCl 250 ml @ 125 mls/hr Q24H IV 01/28/25 20:00 01/30/25 23:59 DC 01/30/25 20:34 125 MLS/HR Vancomycin HCl (Vancomycin Protocol) 1 each AD IV 01/27/25 20:30 02/01/25 11:42 DC Wound Care/ Dressing Products (Venelex Ointment) apply to coccyx BID TP 01/28/25 21:00 02/27/25 20:59 02/05/25 07:47 1 GM DIAGNOSTICS / RADIOLOGY: ASSESSMENT: Septic shock with recent diskitis POA Stage 2 pressure ulcer on coccyx POA Acute kidney injury POA, resolved Suspected [place] valve infective endocarditis, POA, ruled out Acute normocytic normochromic anemia POA Acute thrombocytopenia Mild hyponatremia POA Mild hypochloremia POA Lactic acidosis POA Suspected acute urinary tract infection POA, negative cultures PLAN: Pending placement in LTAC 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 * SOFA score of 3 on 01/28, lactic acid 3.8, bilirubin 1.4, creatinine 0.7, on norepinephrine 0.04 mcg/kg/min, platelet count of 122. * Lactic acid trend: 3.8> 2.8> 1.2>1.1>1.1, procalcitonin 16.94 (01/28/2025). * Discontinued cefepime2 g q.12 and vancomycin, and started the patient on ampicillin 2g IV(day 4), ceftriaxone 2g IV (day 4) fluconazole[day 5] * Infectious diseases on board follow their recommendations. * MR spine revealed Fluid signal intensity at L4-L5 level with subtle erosive changes at the inferior endplate of L4 and superior endplate of the L5 verteb ra with bone marrow edema. 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 * Continue to monitor vitals, CRP, CBC Suspected infective endocarditis of the [place] valve: * Patient's blood cultures grew Gram-positive cocci in chains and Gram-negative rods. * Gram-negative rods identified as pansensitive E coli. * Echocardiography revealed small anterior mitral valve tip vegetation versus myxomatous leaflet * ROBERT done showed no evidence of vegetations or endocarditis and the bubble study was negative * Continue with the current antibiotic regimen. Stage II pressure ulcer on coccyx with granulation and minimal slough with mild periwound erythema and no drainage: * Patient has an open wound to the sacral area. * Wound care consulted, they recommended Venelex b.i.d. and p.r.n.. * Place the patient on a waffle mattress, keep the wounds clean and dry. * Frequent repositioning q.2 hours. * Wound culture positive for Enterococcus faecalis sensitive to ampicillin, gentamicin, penicillin, vancomycin and Jennifer albicans. * Continue current IV antibiotic management. * Continue to serially assess the lesion. DVT prophylaxis with heparin 5000 b.i.d.. GI prophylaxis with Pepcid 20 mg p.o. daily ATTESTATION BY PHYSICIAN I have seen and examined the patient. I reviewed the documentation, medical decision making, and treatment plan as noted by the resident provider above. I agree with the findings and plan of care. Arnaldo Nuñez MD, LAKSHMI MD Feb 05, 2025 15:54
[2025-02-05 16:00] VITALS: BP 122/55; PULSE 79; RESP 16; TEMP 98.2
[2025-02-05 20:00] VITALS: BP 123/55; PULSE 91; RESP 18; TEMP 98.1; O2SAT 98
[2025-02-06] VITALS (7 sets, daily range): BP systolic 110–126; BP diastolic 53–60; PULSE 68–87; RESP 16–18; TEMP 97.8–98.4; O2SAT 98
[2025-02-06 05:40] LABS: IMMATURE GRANULOCYTE ABSOLUTE 0.03 K/uL (0-1); NUCLEATED RED BLOOD CELLS 0.0 % (0.0-0.19); PLATELET COUNT (AUTO) 112 K/uL (130-400); RED BLOOD CELL COUNT(AUTO) 3.06 MIL/uL (4.50-6.20); RED CELL DISTRIBUTION WIDTH 15.4 % (11.0-15.5); WHITE BLOOD COUNT (AUTO) 5.6 K/uL (4.8-10.8)
[2025-02-06 06:02] LABS: CREATININE 0.7 mg/dL (0.5-1.3); GLOMERULAR FILTR. RATE CALC 97.0 mL/min (>90); GLUCOSE,RANDOM 105.0 mg/dL (70-105); SODIUM SERUM 140.0 mmol/L (136-145); UREA NITROGEN, BLOOD 11.0 mg/dL (7-18)
--- NOTE | 2025-02-06 12:22 | PN ---
[facility] PROGRESS NOTE Date of Service: Feb 06, 2025 Time of Service: 12:19 SUBJECTIVE: This is a 74-year-old male past medical history of hypertension, diabetes, hyperlipidemia ,UTI due to Ecoli and obesity with past surgical history of right colectomy and polyps removal who was brought by EMS to the ED for complaints of fever and generalized body weakness.Patient was recently admitted in this facility for septic shock and was treated with ABT for E coli and was receiving IV ABT as outpatient managed by as per patient .Patient reports he was also recently admitted in [facility] and was diagnosed with Diskitis and was discharged yesterday and came back here.Today he started having fever so he decided to come to the ED for evaluation.Upon ER arrival patient V/S was T99.5,HR 119,BP 70/42 and Sat 96% RA. Seen and examined patient in the ER awake,alert and coherent,states he feels much better now than when he came in he said.On further evaluation ,patient has an open wound to sacral area,and patient reports he has been having it since he was discharge home.Patient is also on Levophed drip.Patient denies,nausea,vomiting,chest pain,palpitation,cough and shortness of breath. Latest vital signs heart rate 67, blood pressure 90/50 saturation 99% on room air. Labs: WBC 13 with negative left shift of neutrophils 89, hemoglobin 10, hematocrit 29, platelet count 122. Sodium 132, chloride 100, BUN 34, lactic acid 3.8-2.8 troponin 41. Urinalysis significant for urine bilirubin small, urine urobilinogen two, small esterase, urine WBC 6-10. While in the ER patient received vancomycin 1 g IV, Zosyn 3.375 IV, Tylenol 1000 mg p.o. and fluid re suscitation of NS 30 mL/kilogram over 3 hours and morphine 1 mg IV. We will admit patient for further medical management. 01/28: Patient was seen and evaluated at bedside in room 207. He was awake, alert, and oriented 3, sitting comfortably in his chair during the encounter. He denies dizziness, generalized weakness, chest pain, shortness of breath, na usea, vomiting, or other acute complaints today. He states he is relieved that his blood pressure has been improving. He remains on norepinephrine at 0.04 mcg/kg/hr. A 2D echocardiogram obtained today revealed suspicious vegetations on the mitral valve; cardiology has been consulted and evaluation is pending. Infectious Diseases has also evaluated the patient and recommended continuing vancomycin, ceftriaxone, and metronidazole (Flagyl). Blood cultures have grown gram-positive cocci in chains; final organism identification and sensitivities are pending. The patient is also pending MRI, but current pressor support is not MRI-compatible. He will require weaning off norepinephrine prior to being transported safely for imaging. He denies any new symptoms today and remains hemodynamically stable aside from ongoing vasopressor requirement. 01/29: Patient was seen and evaluated at bedside in room 207. He was awake, a lert, and oriented 3. He reports feeling much better today and denies any active complaints, including chest pain, shortness of breath, dizziness, nausea, or abdominal discomfort. He is now off vasopressors and maintaining stable blood pressure around 110/70, and will be downgraded to PCCU today. Infectious Diseases has recommended a transesophageal echocardiogram (ROBERT) to further evaluate for infective endocarditis; this is currently pending. Cardiology has been consulted for management of suspected endocarditis, and their evaluation is pending as well. He remains on vancomycin, and ceftriaxone was discontinued today. Identification and sensitivities of the bacteremia are still pending. Patient has no additional concerns at this time, and all questions were addressed. 01/30: Patient was seen and evaluated at bedside in room 2. He was awake, alert, and oriented x3. patient continues to do well and denies any active complaints today. Cardiology evaluated the patient and recommended a ROBERT tomorrow to further evaluate the mitral valve vegetation seen on the ROBERT. Patient was informed that his code status will have to be changed to full code for ROBERT, and he verbalized understanding and is in agreement with proceeding to ROBERT. He continues on vancomycin (day 3). Case management has been trying to get the patient placed on a long-term facility as the patient was rejected at [facility]. One of his blood cultures grew E coli which was pansensitive. We are still pending the ID and susceptibility of the Gram-positive cocci seen on the other blood culture. Repeat blood cultures were sent today, follow up with the results. Patient is still pending MRI of the spine to evaluate his osteomyelitis, follow up with Radiology. Patient has no other concerns, and all questions were addressed. 01/31/2025 Patient is seen and examined at the bedside today. Vital signs remained stable with blood pressure in 100s/60s, heart rate in 70s, oxygen saturation greater t crane 95% on room air. He has been afebrile. No acute events last night. He reports feeling well and denies fever, chills, chest pain, palpitations, abdominal pain or diarrhea or any new symptoms. He underwent a ROBERT today which showed no evidence of vegetations or endocarditis and the bubble study was negative. He remains on fluconazole, vancomycin and cefepime. Labs WBC 6.2, hemoglobin 9.6, BNP unremarkable, CRP trended down from 60.90 to 37. We will continue to monitor his clinical status. 02/01/2025: The patient was seen and evaluated at bedside in room 227. He was awake, alert, and oriented x3. he reports feeling well today with no new symptoms. He denies shortness of breath, chest pain, palpitations, lightheadedness, generalized weakness, fevers, or any symptoms concerning for ongoing sepsis. He does report constipation, stating that his last bowel movement was2 days ago and he would like some medication for relief; however, he prefers to receive treatment after physical therapy works with him today. A ROBERT was negative for endocarditis. 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 He is currently receiving IV antibiotics, and IV fluconazole was added due to Jennifer albicans growth from his sacral ulcer. His 1st blood culture returned positive for pansensitive E coli; repeat blood cultures are negative so far. He is pending placement for an LTAC, awaiting insurance authorization. The patient remains hemodynamically stable and has no additional complaints at this time. 02.02.2025: The patient was seen and evaluated at bedside in room 227. He was awake, alert, and oriented x3. The patient reports abdominal pain and has not had a bowel movement for the past several days. He was started on lactulose BID yesterday but has not yet had a bowel movement. Abdominal X-ray demonstrates fecal impaction in the distal sigmoid colon and rectum. A mineral oil enema has been ordered. The patient is pending LTAC placement and Infectious Disease recommendations for a minimal anterior epidural abscess. He is currently receiving ampicillin and ceftriaxone. 02.03.2025: Patient is seen and evaluated in room number 227. No new complaints reported initially. WBC is stable at 5.1, hemoglobin remains stable at 9.7, and elect rolytes are within normal limits. Calcium is 8.3 with albumin 1.8; corrected calcium is 10.06, which is within normal range. CRP is trending down at 35, and ALP is elevated at 268. Patient reports having a bowel movement yesterday and passed three to four hard and painful stools. Patient is also experiencing rectal pain, stating that it comes and goes. This pain is likely related to the recent passage of hard stools. We have ordered Anusol-HC 25 mg suppository for symptomatic relief. We are currently pending [facility] approval. 02.04.2025: The patient was seen and evaluated in room 115. Laboratory results show a WBC of 4.6, a platelet count of 114, and a procalcitonin level of 0.52 ng/mL. The patient was denied for [facility], and case management is actively working on placement. 02.05.2025: The patient was seen and evaluated in room 327. Laboratory results show a WBC of 5.2,and a platelet count of 106. The patient was denied for [facility], and case management is actively working on placement. Patient reported of having three episodes of diarrhea yesterday morning but he denied having any episode of loose stool today. 02.06.2025: Patient seen and evaluated in room 327. Vital signs stable with BP 114/56. Laboratory studies show WBC 5.6, hemoglobin stable at 9.9, and platelet count 112. Inflammatory markers improving with CRP down to 32 and procalcitonin trending down to 0.38. Patient is currently on a heart-healthy diet but has requested transition to a regular diet. He also expressed his desire to change code status from DNR/DNI to Full Code. Case management is working on placement at [facility]; however, the process is still pending and will not be completed before Sunday. REVIEW OF SYSTEMS CONSTITUTIONAL: Denies night sweats. No unintentional weight loss reported. NEUROLOGICAL: Denies headache, amaurosis fugax,sensory deficit, vertigo/spinning sensation, gait abnormalities, or tremors. ENT: No hearing loss, otalgia, otorrhea, rhinitis, rhinorrhea, hoarseness, or sore throat. CARDIOVASCULAR: Denies any exertional angina, dyspnea on exertion, orthopnea, paroxysmal nocturnal dyspnea, palpitations, life-threatening arrhythmias, claudication. PULMONARY: Denies any shortness of breath, cough, phlegm/sputum, hemoptysis, pleuritic chest pain. SLEEP: Denies morning headaches, daytime somnolence or napping. Denies difficulty falling asleep, staying asleep, waking from sleep. Denies knowledge of snoring. GASTROINTESTINAL: Denies any type of dysphagia to either liquids or solids. Denies nausea, vomiting, pyrosis, early satiety, diarrhea or changes in stool consistency or caliber. Denies coffee-ground emesis, hematemesis, hematochezia, or melanotic stools. GENITOURINARY: Denies frequency, urgency, nocturia, hematuria or incontinence ENDOCRINOLOGIC: Denies polyuria, polydipsia, polyphagia or heat/cold intolerances. HEMATOLOGIC: Denies thrombophilia/previous clots, or coagulopathy/bleeding disorders. PSYCHIATRIC: Denies any suicidal or homicidal ideation. Denies hallucinations. PHYSICAL EXAM GENERAL APPEARANCE: The patient is awake, alert, and oriented, in no acute cardiopulmonary distress. NEUROLOGICAL: Motor is 5/5 in bilateral upper and lower extremities proximal to distal. No sensory deficits. HEENT: Face is symmetric. Pupils are equal and reactive. Extraocular movements are intact. NECK: Supple. No thyromegaly. No submental, submandibular, pre-/postauricular, occipital or supraclavicular lymphadenopathy. CHEST: Normal chest expansion. No Telemetry. LUNGS: Absence of any rales, rhonchi or any wheezing. CARDIOVASCULAR: Regular. S1 and S2 normal. No appreciable rubs, murmurs or gallops. ABDOMEN: Soft, nontender, and nondistended. There is no rebound, voluntary guarding, or rigidity. : Deferred. No Mariano. EXTREMITIES: Non-edematous and not cyanotic. No clubbing. Good capillary refill. SKIN: open wound to sacral area Vital Signs (last 8hr) Date Time Temp Pulse Resp B/P (MAP) Pulse Ox O2 Delivery O2 Flow Rate FiO2 02/06/25 12:01 98.4 84 18 110/53 99 Room Air 02/06/25 08:00 97.9 68 18 110/60 98 Room Air LABS: Laboratory: Test 02/06/25 05:25 Range/Units White Blood Count 5.6 4.8-10.8 K/uL Red Blood Count 3.06 L 4.50-6.20 MIL/uL Hemoglobin 9.9 L 14.0-18.0 g/dL Hematocrit 29.7 L 42-54 % Mean Corpuscular Volume 97.1 79-99 fL Mean Corpuscular Hemoglobin 32.4 27.0-33.0 pg Mean Corpuscular Hemoglobin Concent 33.3 32.0-36.0 g/dL Red Cell Distribution Width 15.4 11.0-15.5 % Platelet Count 112 L 130-400 K/uL Mean Platelet Volume 8.8 7.5-10.5 fL Immature Granulocyte % (Auto) 0.5 0-1 % Neutrophils (%) (Auto) 58.9 40.0-77.0 % Lymphocytes (%) (Auto) 32.4 21.0-51.0 % Monocytes (%) (Auto) 7.1 3.0-13.0 % Eosinophils (%) (Auto) 0.7 0.0-8.0 % Basophils (%) (Auto) 0.4 0.0-5.0 % Neutrophils # (Auto) 3.3 1.8-7.7 K/uL Lymphocytes # (Auto) 1.8 1.0-4.8 K/uL Monocytes # (Auto) 0.4 0.1-1.0 K/uL Eosinophils # (Auto) 0.04 0.00-0.70 K/uL Basophils # (Auto) 0.02 0.00-0.20 K/uL Absolute Immature Granulocyte (auto 0.03 0-1 K/uL Nucleated Red Blood Cells 0.0 0.0-0.19 % Sodium Level 140 136-145 mmol/L Potassium Level 3.9 3.5-5.1 mmol/L Chloride Level 107 101-111 mmol/L Carbon Dioxide Level 27 21-32 mmol/L Blood Urea Nitrogen 11 7-18 mg/dL Creatinine 0.7 0.5-1.3 mg/dL Glomerular Filtration Rate Calc 97 >90 mL/min Random Glucose 105 70-105 mg/dL Total Calcium 8.1 L 8.5-10.1 mg/dL C-Reactive Protein, Quantitative 32.10 H 0.5-3.0 mg/L Procalcitonin 0.38 0.05-0.5 ng/mL Current Medications Medications (Trade) Dose Ordered Sig/Panchito Route PRN Reason Start Time Stop Time Status Last Admin Dose Admin Acetaminophen (TYLenol 325MG TAB) 650 mg Q4H PRN PO MILD PAIN (1-3) 01/27/25 20:00 02/26/25 19:59 Acetaminophen (TYLenol 325MG TAB) 650 mg Q6H PRN PO TEMPERATURE GREATER THAN 101.5 01/27/25 20:00 02/26/25 19:59 Acetaminophen/ Hydrocodone Bitart (NORco 5/325MG) 1 tab Q6H PRN PO MODERATE PAIN (4-6) 01/27/25 16:00 02/01/25 12:00 DC 01/31/25 20:35 1 TAB Ampicillin Sodium (Ampicillin 2gm+NS 100ml) 2 gm Q6H IV 02/01/25 12:00 02/22/25 11:59 02/06/25 06:23 2 GM Cefepime HCl (MAXipime 2 gm vial) 2 gm Q12H IVPB 01/27/25 21:30 02/01/25 11:42 DC 02/01/25 09:34 2 GM Ceftriaxone Sodium (Rocephin 2gm Inj) 2 gm Q12H IVPB 02/01/25 12:00 02/11/25 11:59 02/06/25 01:10 2 GM Famotidine (Pepcid 20mg Tab) 20 mg DAILY PO 01/28/25 09:00 02/27/25 08:59 02/06/25 09:36 20 MG Fluconazole (DiFLUCan 100 mg TAB) 200 mg DAILY PO 01/31/25 09:00 03/02/25 08:59 02/06/25 09:36 200 MG Heparin Sodium (Porcine) (HEParin 5,000 UNIT VIAL) 5,000 unit Q12H SQ 01/28/25 09:00 02/27/25 08:59 02/06/25 09:45 5,000 UNIT Hydrocortisone Acetate (anuSOL-HC 25MG SUPP) 1 supp BID MT 02/03/25 21:00 03/05/25 20:59 02/06/25 09:36 1 SUPP Lactated Ringer's 1,000 ml @ 75 mls/hr [id number] IV 01/27/25 21:30 02/04/25 06:36 DC 02/04/25 02:06 75 MLS/HR Lactulose (Constulose 20gm/ 30ml Udcup) 20 gm BID PO 02/02/25 09:00 02/05/25 06:22 DC 02/04/25 08:28 20 GM Lactulose (Constulose 20gm/ 30ml Udcup) 20 gm BID PRN PO CONSTIPATION 02/01/25 16:30 02/04/25 06:36 DC 02/01/25 21:31 20 GM Magnesium Sulfate 50 ml @ 0 mls/hr PROTOCOL PRN IV OTHER [SEE ORDER COMMENTS] 01/27/25 20:00 02/26/25 19:59 01/31/25 08:41 25 MLS/HR Metronidazole/ Sodium Chloride (flaGYL) 500 mg Q8H IV 01/27/25 21:30 01/30/25 23:42 DC 01/30/25 22:31 500 MG Morphine Sulfate (morPHINE 2MG SYG) 1 mg Q4H PRN IVP SEVERE PAIN (7-10) 01/27/25 15:30 01/27/25 15:47 DC Norepinephrine 250 ml @ 0 mls/hr PROTOCOL IV 01/27/25 17:00 01/29/25 14:46 DC 01/27/25 17:50 26.25 MLS/HR Nystatin (NystOP 15 GM POWDER) coccyx BID TP 01/30/25 21:00 03/01/25 20:59 02/06/25 09:36 1 APPL Ondansetron HCl (zoFRAN 4MG INJ) 4 mg Q6H PRN IV NAUSEA/VOMITING 01/27/25 20:00 02/26/25 19:59 02/01/25 13:10 4 MG Pharmacy Profile Note (Pharmacy Communication) 1 each AD MISC 01/28/25 10:30 01/28/25 10:21 DC Piperacillin Sod/ Tazobactam Sod 50 ml @ 12.5 mls/hr Q8H IV 01/27/25 22:00 01/27/25 21:32 DC Potassium Chloride 100 ml @ 100 mls/hr AD PRN IV POTASSIUM PROTOCOL 01/27/25 20:00 02/26/25 19:59 Potassium Chloride (K-Dur/Klor-Con 20meq) 20 meq AD PRN PO POTASSIUM PROTOCOL 01/27/25 20:00 02/26/25 19:59 02/03/25 16:52 20 MEQ Potassium Chloride (KCl 10% Elixir 20meq/15ml) 20 meq AD PRN PO POTASSIUM PROTOCOL 01/27/25 20:00 02/26/25 19:59 Sodium Chloride 1,000 ml @ 100 mls/hr Q10H IV 01/27/25 20:00 01/28/25 15:59 DC 01/27/25 20:04 100 MLS/HR Vancomycin HCl 250 ml @ 125 mls/hr BID@0800,2000 IV 01/31/25 08:00 02/01/25 11:42 DC 02/01/25 09:34 125 MLS/HR Vancomycin HCl 250 ml @ 125 mls/hr ONCE IV 01/27/25 20:00 01/27/25 20:09 DC Vancomycin HCl 250 ml @ 125 mls/hr Q24H IV 01/28/25 20:00 01/30/25 23:59 DC 01/30/25 20:34 125 MLS/HR Vancomycin HCl (Vancomycin Protocol) 1 each AD IV 01/27/25 20:30 02/01/25 11:42 DC Wound Care/ Dressing Products (Venelex Ointment) apply to coccyx BID TP 01/28/25 21:00 02/27/25 20:59 02/06/25 09:36 1 GM DIAGNOSTICS / RADIOLOGY: [ ] ASSESSMENT: Septic shock with recent diskitis POA Stage 2 pressure ulcer on coccyx POA Acute kidney injury POA, resolved Suspected wainwright valve infective endocarditis, POA, ruled out Acute normocytic normochromic anemia POA Acute thrombocytopenia Mild hyponatremia POA Mild hypochloremia POA Lactic acidosis POA Suspected acute urinary tract infection POA, negative cultures PLAN: Pending placement in LTAC 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 * SOFA score of 3 on 01/28, lactic acid 3.8, bilirubin 1.4, creatinine 0.7, on norepinephrine 0.04 mcg/kg/min, platelet count of 122. * Lactic acid trend: 3.8> 2.8> 1.2>1.1>1.1 * Discontinued cefepime2 g q.12 and vancomycin, and started the patient on ampicillin 2g IV(day 5), ceftriaxone 2g IV (day 5) fluconazole[day 6] * Infectious diseases on board follow their recommendations. * MR spine revealed Fluid signal intensity at L4-L5 level with subtle erosive changes at the inferior endplate of L4 and superior endplate of the L5 vertebra with bone marrow edema. 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 * Continue to monitor vitals, CRP, CBC Suspected infective endocarditis of the wainwright valve: * Patient's blood cultures grew Gram-positive cocci in chains and Gram-negative rods. * Gram-negative rods identified as pansensitive E coli. * Echocardiography revealed small anterior mitral valve tip vegetation versus myxomatous leaflet * ROBERT done showed no evidence of vegetations or endocarditis and the bubble study was negative * Continue with the current antibiotic regimen. Stage II pressure ulcer on coccyx with granulation and minimal slough with mild periwound erythema and no drainage: * Patient has an open wound to the sacral area. * Wound care consulted, they recommended Venelex b.i.d. and p.r.n.. * Place the patient on a waffle mattress, keep the wounds clean and dry. * Frequent repositioning q.2 hours. * Wound culture positive for Enterococcus faecalis sensitive to ampicillin, gentamicin, penicillin, vancomycin and Jennifer albicans. * Continue current IV antibiotic management. * Continue to serially assess the lesion. DVT prophylaxis with heparin 5000 b.i.d.. GI prophylaxis with Pepcid 20 mg p.o. daily Diet - regular ATTESTATION BY PHYSICIAN I have seen and examined the patient. I reviewed the documentation, medical decision making, and treatment plan as noted by the resident provider above. I agree with the findings and plan of care. Arnaldo Nuñez MD, LAKSHMI MD Feb 06, 2025 12:22
--- NOTE | 2025-02-06 16:11 | PN ---
INFECTIOUS DISEASE PROGRESS NOTE Date of Service: Feb 06, 2025 SUBJECTIVE: This 74-year-old male patient has been examined today at bedside. He is awake, alert and oriented x3. patient denies chest pain or shortness of breath. He remains afebrile. No nausea or vomiting no abdominal discomfort. We will continue on ampicillin, ceftriaxone and fluconazole. Patient is pending an insurance appeal approval to [facility]. PHYSICAL EXAM EYES: Anicteric. Pupils equal and reactive. HENT: No oral thrush seen, moist Oral mucosa. NECK: Supple, no JVD or thyromegaly. LUNGS: Good air entry. No rales, no rhonchi. CARDIOVASCULAR: S1, S2 regular. No murmur heard. ABDOMEN: Soft, non tender, bowel sounds present. CENTRAL NERVOUS SYSTEM: Awake, alert, oriented x 3. SKIN: No rashes, no swelling. LYMPHATICS: No peripheral lymphadenopathy. MUSCULOSKELETAL: No joint swelling, erythema or tenderness. EXTREMITIES: No cyanosis or clubbing. BACK: Stage II coccygeal ulcer. GENITOURINARY: No dysuria or hematuria. Vital Sign (Last 12 Hours) 02/06/25 02/06/25 08:00 12:01 Temp 97.9 98.4 Pulse 68 84 Resp 18 18 B/P (MAP) 110/60 110/53 Pulse Ox 98 99 O2 Delivery Room Air Room Air Intake & Output (last 24hrs) 02/05/25 02/05/25 02/06/25 15:00 23:00 07:00 Intake Total 400 ml 800.0 ml Output Total 600 ml 1050 ml 850 ml Balance -600 ml -650 ml -50.0 ml LABS: Laboratory: Test 02/06/25 05:25 Range/Units White Blood Count 5.6 4.8-10.8 K/uL Red Blood Count 3.06 L 4.50-6.20 MIL/uL Hemoglobin 9.9 L 14.0-18.0 g/dL Hematocrit 29.7 L 42-54 % Mean Corpuscular Volume 97.1 79-99 fL Mean Corpuscular Hemoglobin 32.4 27.0-33.0 pg Mean Corpuscular Hemoglobin Concent 33.3 32.0-36.0 g/dL Red Cell Distribution Width 15.4 11.0-15.5 % Platelet Count 112 L 130-400 K/uL Mean Platelet Volume 8.8 7.5-10.5 fL Immature Granulocyte % (Auto) 0.5 0-1 % Neutrophils (%) (Auto) 58.9 40.0-77.0 % Lymphocytes (%) (Auto) 32.4 21.0-51.0 % Monocytes (%) (Auto) 7.1 3.0-13.0 % Eosinophils (%) (Auto) 0.7 0.0-8.0 % Basophils (%) (Auto) 0.4 0.0-5.0 % Neutrophils # (Auto) 3.3 1.8-7.7 K/uL Lymphocytes # (Auto) 1.8 1.0-4.8 K/uL Monocytes # (Auto) 0.4 0.1-1.0 K/uL Eosinophils # (Auto) 0.04 0.00-0.70 K/uL Basophils # (Auto) 0.02 0.00-0.20 K/uL Absolute Immature Granulocyte (auto 0.03 0-1 K/uL Nucleated Red Blood Cells 0.0 0.0-0.19 % Sodium Level 140 136-145 mmol/L Potassium Level 3.9 3.5-5.1 mmol/L Chloride Level 107 101-111 mmol/L Carbon Dioxide Level 27 21-32 mmol/L Blood Urea Nitrogen 11 7-18 mg/dL Creatinine 0.7 0.5-1.3 mg/dL Glomerular Filtration Rate Calc 97 >90 mL/min Random Glucose 105 70-105 mg/dL Total Calcium 8.1 L 8.5-10.1 mg/dL C-Reactive Protein, Quantitative 32.10 H 0.5-3.0 mg/L Procalcitonin 0.38 0.05-0.5 ng/mL ASSESSMENT: E coli bacteremia. Lumbar spine osteomyelitis. Mitral valve vegetation, ruled out. Sepsis. Stage II coccygeal ulcer with Jennifer albicans infection. Urinary tract infection. Leukocytosis, resolved. Diabetes mellitus. PLAN: Continue ceftriaxone. Continue fluconazole. Continue ampicillin. Continue cefepime IV. Continue GI prophylaxis. Continue pain management. Continue wound care. Continue antidiabetics. Patient will need 6 weeks of antibiotics. Pending insurance appeal approval to [facility]. This case was reviewed and discussed with my supervising physician Dr. Espinosa and the above assessment and plan was formulated and agreed upon. SOWMYA SALDANA [facility] Feb 06, 2025 16:11
[2025-02-07] VITALS (8 sets, daily range): BP systolic 104–148; BP diastolic 52–81; PULSE 68–92; RESP 17–20; TEMP 98.3–98.8; O2SAT 98
[2025-02-07 04:59] LABS: IMMATURE GRANULOCYTE ABSOLUTE 0.02 K/uL (0-1); NUCLEATED RED BLOOD CELLS 0.0 % (0.0-0.19); PLATELET COUNT (AUTO) 120 K/uL (130-400); RED BLOOD CELL COUNT(AUTO) 3.07 MIL/uL (4.50-6.20); RED CELL DISTRIBUTION WIDTH 15.8 % (11.0-15.5); WHITE BLOOD COUNT (AUTO) 4.1 K/uL (4.8-10.8)
[2025-02-07 05:14] LABS: CREATININE 0.6 mg/dL (0.5-1.3); GLOMERULAR FILTR. RATE CALC 102.0 mL/min (>90); GLUCOSE,RANDOM 128.0 mg/dL (70-105); SODIUM SERUM 139.0 mmol/L (136-145); UREA NITROGEN, BLOOD 12.0 mg/dL (7-18)
--- NOTE | 2025-02-07 10:41 | PN ---
[facility] PROGRESS NOTE Date of Service: Feb 07, 2025 Time of Service: 10:37 SUBJECTIVE: This is a 74-year-old male past medical history of hypertension, diabetes, hyperlipidemia ,UTI due to Ecoli and obesity with past surgical history of right colectomy and polyps removal who was brought by EMS to the ED for complaints of fever and generalized body weakness.Patient was recently admitted in this facility for septic shock and was treated with ABT for E coli and was receiving IV ABT as outpatient managed by as per patient .Patient reports he was also recently admitted in [place] and was diagnosed with Diskitis and was discharged yesterday and came back here.Today he started having fever so he decided to come to the ED for evaluation.Upon ER arrival patient V/S was T99.5,HR 119,BP 70/42 and Sat 96% RA. Seen and examined patient in the ER awake,alert and coherent,states he feels much better now than when he came in he said.On further evaluation ,patient has an open wound to sacral area,and patient reports he has been having it since he was discharge home.Patient is also on Levophed drip.Patient denies,nausea,vomiting,chest pain,palpitation,cough and shortness of breath. Latest vital signs heart rate 67, blood pressure 90/50 saturation 99% on room air. Labs: WBC 13 with negative left shift of neutrophils 89, hemoglobin 10, hematocrit 29, platelet count 122. Sodium 132, chloride 100, BUN 34, lactic acid 3.8-2.8 troponin 41. Urinalysis significant for urine bilirubin small, urine urobilinogen two, small esterase, urine WBC 6-10. While in the ER patient received vancomycin 1 g IV, Zosyn 3.375 IV, Tylenol 1000 mg p.o. and fluid re suscitation of NS 30 mL/kilogram over 3 hours and morphine 1 mg IV. We will admit patient for further medical management. 01/28: Patient was seen and evaluated at bedside in room 207. He was awake, alert, and oriented 3, sitting comfortably in his chair during the encounter. He denies dizziness, generalized weakness, chest pain, shortness of breath, na usea, vomiting, or other acute complaints today. He states he is relieved that his blood pressure has been improving. He remains on norepinephrine at 0.04 mcg/kg/hr. A 2D echocardiogram obtained today revealed suspicious vegetations on the mitral valve; cardiology has been consulted and evaluation is pending. Infectious Diseases has also evaluated the patient and recommended continuing vancomycin, ceftriaxone, and metronidazole (Flagyl). Blood cultures have grown gram-positive cocci in chains; final organism identification and sensitivities are pending. The patient is also pending MRI, but current pressor support is not MRI-compatible. He will require weaning off norepinephrine prior to being transported safely for imaging. He denies any new symptoms today and remains hemodynamically stable aside from ongoing vasopressor requirement. 01/29: Patient was seen and evaluated at bedside in room 207. He was awake, a lert, and oriented 3. He reports feeling much better today and denies any active complaints, including chest pain, shortness of breath, dizziness, nausea, or abdominal discomfort. He is now off vasopressors and maintaining stable blood pressure around 110/70, and will be downgraded to PCCU today. Infectious Diseases has recommended a transesophageal echocardiogram (ROBERT) to further evaluate for infective endocarditis; this is currently pending. Cardiology has been consulted for management of suspected endocarditis, and their evaluation is pending as well. He remains on vancomycin, and ceftriaxone was discontinued today. Identification and sensitivities of the bacteremia are still pending. Patient has no additional concerns at this time, and all questions were addressed. 01/30: Patient was seen and evaluated at bedside in room 2. He was awake, alert, and oriented x3. patient continues to do well and denies any active complaints today. Cardiology evaluated the patient and recommended a ROBERT tomorrow to further evaluate the mitral valve vegetation seen on the ROBERT. Patient was informed that his code status will have to be changed to full code for ROBERT, and he verbalized understanding and is in agreement with proceeding to ROBERT. He continues on vancomycin (day 3). Case management has been trying to get the patient placed on a detention facility as the patient was rejected at [facility]. One of his blood cultures grew E coli which was pansensitive. We are still pending the ID and susceptibility of the Gram-positive cocci seen on the other blood culture. Repeat blood cultures were sent today, follow up with the results. Patient is still pending MRI of the spine to evaluate his osteomyelitis, follow up with Radiology. Patient has no other concerns, and all questions were addressed. 01/31/2025 Patient is seen and examined at the bedside today. Vital signs remained stable with blood pressure in 100s/60s, heart rate in 70s, oxygen saturation greater t crane 95% on room air. He has been afebrile. No acute events last night. He reports feeling well and denies fever, chills, chest pain, palpitations, abdominal pain or diarrhea or any new symptoms. He underwent a ROBERT today which showed no evidence of vegetations or endocarditis and the bubble study was negative. He remains on fluconazole, vancomycin and cefepime. Labs WBC 6.2, hemoglobin 9.6, BNP unremarkable, CRP trended down from 60.90 to 37. We will continue to monitor his clinical status. 02/01/2025: The patient was seen and evaluated at bedside in room 227. He was awake, alert, and oriented x3. he reports feeling well today with no new symptoms. He denies shortness of breath, chest pain, palpitations, lightheadedness, generalized weakness, fevers, or any symptoms concerning for ongoing sepsis. He does report constipation, stating that his last bowel movement was2 days ago and he would like some medication for relief; however, he prefers to receive treatment after physical therapy works with him today. A ROBERT was negative for endocarditis. 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 He is currently receiving IV antibiotics, and IV fluconazole was added due to Jennifer albicans growth from his sacral ulcer. His 1st blood culture returned positive for pansensitive E coli; repeat blood cultures are negative so far. He is pending placement for an LTAC, awaiting insurance authorization. The patient remains hemodynamically stable and has no additional complaints at this time. 02.02.2025: The patient was seen and evaluated at bedside in room 227. He was awake, alert, and oriented x3. The patient reports abdominal pain and has not had a bowel movement for the past several days. He was started on lactulose BID yesterday but has not yet had a bowel movement. Abdominal X-ray demonstrates fecal impaction in the distal sigmoid colon and rectum. A mineral oil enema has been ordered. The patient is pending LTAC placement and Infectious Disease recommendations for a minimal anterior epidural abscess. He is currently receiving ampicillin and ceftriaxone. 02.03.2025: Patient is seen and evaluated in room number 227. No new complaints reported initially. WBC is stable at 5.1, hemoglobin remains stable at 9.7, and elect rolytes are within normal limits. Calcium is 8.3 with albumin 1.8; corrected calcium is 10.06, which is within normal range. CRP is trending down at 35, and ALP is elevated at 268. Patient reports having a bowel movement yesterday and passed three to four hard and painful stools. Patient is also experiencing rectal pain, stating that it comes and goes. This pain is likely related to the recent passage of hard stools. We have ordered Anusol-HC 25 mg suppository for symptomatic relief. We are currently pending [facility] approval. 02.04.2025: The patient was seen and evaluated in room 115. Laboratory results show a WBC of 4.6, a platelet count of 114, and a procalcitonin level of 0.52 ng/mL. The patient was denied for [facility], and case management is actively working on placement. 02.05.2025: The patient was seen and evaluated in room 327. Laboratory results show a WBC of 5.2,and a platelet count of 106. The patient was denied for [facility], and case management is actively working on placement. Patient reported of having three episodes of diarrhea yesterday morning but he denied having any episode of loose stool today. 02.06.2025: Patient seen and evaluated in room 327. Vital signs stable with BP 114/56. Laboratory studies show WBC 5.6, hemoglobin stable at 9.9, and platelet count 112. Inflammatory markers improving with CRP down to 32 and procalcitonin trending down to 0.38. Patient is currently on a heart-healthy diet but has requested transition to a regular diet. He also expressed his desire to change code status from DNR/DNI to Full Code. Case management is working on placement at [facility]; however, the process is still pending and will not be completed before Sunday. 02.07.2025: Patient was seen and evaluated in room 327. His vital signs are stable, and he reported no active complaints. Nursing staff also reported no events during the night. He denied any new or ongoing symptoms. Current medications include ampicillin, ceftriaxone, and fluconazole. The patient is pending insurance appeal approval for [facility]. Laboratory results today show a WB C of 4.4, hemoglobin of 9.9, and platelet count of 120. REVIEW OF SYSTEMS CONSTITUTIONAL: Denies night sweats. No unintentional weight loss reported. NEUROLOGICAL: Denies headache, amaurosis fugax,sensory deficit, vertigo/spinning sensation, gait abnormalities, or tremors. ENT: No hearing loss, otalgia, otorrhea, rhinitis, rhinorrhea, hoarseness, or sore throat. CARDIOVASCULAR: Denies any exertional angina, dyspnea on exertion, orthopnea, paroxysmal nocturnal dyspnea, palpitations, life-threatening arrhythmias, claudication. PULMONARY: Denies any shortness of breath, cough, phlegm/sputum, hemoptysis, pleuritic chest pain. SLEEP: Denies morning headaches, daytime somnolence or napping. Denies difficulty falling asleep, staying asleep, waking from sleep. Denies knowledge of snoring. GASTROINTESTINAL: Denies any type of dysphagia to either liquids or solids. Denies nausea, vomiting, pyrosis, early satiety, diarrhea or changes in stool consistency or caliber. Denies coffee-ground emesis, hematemesis, hematochezia, or melanotic stools. GENITOURINARY: Denies frequency, urgency, nocturia, hematuria or incontinence ENDOCRINOLOGIC: Denies polyuria, polydipsia, polyphagia or heat/cold intolerances. HEMATOLOGIC: Denies thrombophilia/previous clots, or coagulopathy/bleeding disorders. PSYCHIATRIC: Denies any suicidal or homicidal ideation. Denies hallucinations. PHYSICAL EXAM GENERAL APPEARANCE: The patient is awake, alert, and oriented, in no acute cardiopulmonary distress. NEUROLOGICAL: Motor is 5/5 in bilateral upper and lower extremities proximal to distal. No sensory deficits. HEENT: Face is symmetric. Pupils are equal and reactive. Extraocular movements are intact. NECK: Supple. No thyromegaly. No submental, submandibular, pre-/postauricular, occipital or supraclavicular lymphadenopathy. CHEST: Normal chest expansion. No Telemetry. LUNGS: Absence of any rales, rhonchi or any wheezing. CARDIOVASCULAR: Regular. S1 and S2 normal. No appreciable rubs, murmurs or gallops. ABDOMEN: Soft, nontender, and nondistended. There is no rebound, voluntary guarding, or rigidity. : Deferred. No Mariano. EXTREMITIES: Non-edematous and not cyanotic. No clubbing. Good capillary refill. SKIN: open wound to sacral area Vital Signs (last 8hr) Date Time Temp Pulse Resp B/P (MAP) Pulse Ox O2 Delivery O2 Flow Rate FiO2 02/07/25 07:59 98.2 76 18 110/56 98 Room Air 02/07/25 03:40 98.4 70 17 104/53 98 Room Air 21 LABS: Laboratory: Test 02/07/25 04:25 02/06/25 05:25 Range/Units White Blood Count 4.1 #L 4.8-10.8 K/uL Red Blood Count 3.07 L 4.50-6.20 MIL/uL Hemoglobin 9.9 L 14.0-18.0 g/dL Hematocrit 30.3 L 42-54 % Mean Corpuscular Volume 98.7 79-99 fL Mean Corpuscular Hemoglobin 32.2 27.0-33.0 pg Mean Corpuscular Hemoglobin Concent 32.7 32.0-36.0 g/dL Red Cell Distribution Width 15.8 H 11.0-15.5 % Platelet Count 120 L 130-400 K/uL Mean Platelet Volume 9.2 7.5-10.5 fL Immature Granulocyte % (Auto) 0.5 0-1 % Neutrophils (%) (Auto) 51.1 40.0-77.0 % Lymphocytes (%) (Auto) 42.0 21.0-51.0 % Monocytes (%) (Auto) 4.9 3.0-13.0 % Eosinophils (%) (Auto) 1.0 0.0-8.0 % Basophils (%) (Auto) 0.5 0.0-5.0 % Neutrophils # (Auto) 2.1 1.8-7.7 K/uL Lymphocytes # (Auto) 1.7 1.0-4.8 K/uL Monocytes # (Auto) 0.2 0.1-1.0 K/uL Eosinophils # (Auto) 0.04 0.00-0.70 K/uL Basophils # (Auto) 0.02 0.00-0.20 K/uL Absolute Immature Granulocyte (auto 0.02 0-1 K/uL Nucleated Red Blood Cells 0.0 0.0-0.19 % Sodium Level 139 136-145 mmol/L Potassium Level 3.6 3.5-5.1 mmol/L Chloride Level 107 101-111 mmol/L Carbon Dioxide Level 27 21-32 mmol/L Blood Urea Nitrogen 12 7-18 mg/dL Creatinine 0.6 0.5-1.3 mg/dL Glomerular Filtration Rate Calc 102 >90 mL/min Random Glucose 128 H 70-105 mg/dL Total Calcium 8.2 L 8.5-10.1 mg/dL C-Reactive Protein, Quantitative 32.10 H 0.5-3.0 mg/L Procalcitonin 0.38 0.05-0.5 ng/mL Current Medications Medications (Trade) Dose Ordered Sig/Panchito Route PRN Reason Start Time Stop Time Status Last Admin Dose Admin Acetaminophen (TYLenol 325MG TAB) 650 mg Q4H PRN PO MILD PAIN (1-3) 01/27/25 20:00 02/26/25 19:59 Acetaminophen (TYLenol 325MG TAB) 650 mg Q6H PRN PO TEMPERATURE GREATER THAN 101.5 01/27/25 20:00 02/26/25 19:59 Acetaminophen/ Hydrocodone Bitart (NORco 5/325MG) 1 tab Q6H PRN PO MODERATE PAIN (4-6) 01/27/25 16:00 02/01/25 12:00 DC 01/31/25 20:35 1 TAB Ampicillin Sodium (Ampicillin 2gm+NS 100ml) 2 gm Q6H IV 02/01/25 12:00 02/22/25 11:59 02/07/25 06:03 2 GM Cefepime HCl (MAXipime 2 gm vial) 2 gm Q12H IVPB 01/27/25 21:30 02/01/25 11:42 DC 02/01/25 09:34 2 GM Ceftriaxone Sodium (Rocephin 2gm Inj) 2 gm Q12H IVPB 02/01/25 12:00 02/11/25 11:59 02/06/25 22:55 2 GM Famotidine (Pepcid 20mg Tab) 20 mg DAILY PO 01/28/25 09:00 02/27/25 08:59 02/07/25 08:43 20 MG Fluconazole (DiFLUCan 100 mg TAB) 200 mg DAILY PO 01/31/25 09:00 03/02/25 08:59 02/07/25 08:43 200 MG Heparin Sodium (Porcine) (HEParin 5,000 UNIT VIAL) 5,000 unit Q12H SQ 01/28/25 09:00 02/27/25 08:59 02/07/25 08:53 5,000 UNIT Hydrocortisone Acetate (anuSOL-HC 25MG SUPP) 1 supp BID VT 02/03/25 21:00 03/05/25 20:59 02/07/25 08:43 1 SUPP Lactated Ringer's 1,000 ml @ 75 mls/hr [id number] IV 01/27/25 21:30 02/04/25 06:36 DC 02/04/25 02:06 75 MLS/HR Lactulose (Constulose 20gm/ 30ml Udcup) 20 gm BID PO 02/02/25 09:00 02/05/25 06:22 DC 02/04/25 08:28 20 GM Lactulose (Constulose 20gm/ 30ml Udcup) 20 gm BID PRN PO CONSTIPATION 02/01/25 16:30 02/04/25 06:36 DC 02/01/25 21:31 20 GM Magnesium Sulfate 50 ml @ 0 mls/hr PROTOCOL PRN IV OTHER [SEE ORDER COMMENTS] 01/27/25 20:00 02/26/25 19:59 01/31/25 08:41 25 MLS/HR Metronidazole/ Sodium Chloride (flaGYL) 500 mg Q8H IV 01/27/25 21:30 01/30/25 23:42 DC 01/30/25 22:31 500 MG Morphine Sulfate (morPHINE 2MG SYG) 1 mg Q4H PRN IVP SEVERE PAIN (7-10) 01/27/25 15:30 01/27/25 15:47 DC Norepinephrine 250 ml @ 0 mls/hr PROTOCOL IV 01/27/25 17:00 01/29/25 14:46 DC 01/27/25 17:50 26.25 MLS/HR Nystatin (NystOP 15 GM POWDER) coccyx BID TP 01/30/25 21:00 03/01/25 20:59 02/07/25 08:50 1 APPL Ondansetron HCl (zoFRAN 4MG INJ) 4 mg Q6H PRN IV NAUSEA/VOMITING 01/27/25 20:00 02/26/25 19:59 02/01/25 13:10 4 MG Pharmacy Profile Note (Pharmacy Communication) 1 each AD MISC 01/28/25 10:30 01/28/25 10:21 DC Piperacillin Sod/ Tazobactam Sod 50 ml @ 12.5 mls/hr Q8H IV 01/27/25 22:00 01/27/25 21:32 DC Potassium Chloride 100 ml @ 100 mls/hr AD PRN IV POTASSIUM PROTOCOL 01/27/25 20:00 02/26/25 19:59 Potassium Chloride (K-Dur/Klor-Con 20meq) 20 meq AD PRN PO POTASSIUM PROTOCOL 01/27/25 20:00 02/26/25 19:59 02/03/25 16:52 20 MEQ Potassium Chloride (KCl 10% Elixir 20meq/15ml) 20 meq AD PRN PO POTASSIUM PROTOCOL 01/27/25 20:00 02/26/25 19:59 Sodium Chloride 1,000 ml @ 100 mls/hr Q10H IV 01/27/25 20:00 01/28/25 15:59 DC 01/27/25 20:04 100 MLS/HR Vancomycin HCl 250 ml @ 125 mls/hr BID@0800,2000 IV 01/31/25 08:00 02/01/25 11:42 DC 02/01/25 09:34 125 MLS/HR Vancomycin HCl 250 ml @ 125 mls/hr ONCE IV 01/27/25 20:00 01/27/25 20:09 DC Vancomycin HCl 250 ml @ 125 mls/hr Q24H IV 01/28/25 20:00 01/30/25 23:59 DC 01/30/25 20:34 125 MLS/HR Vancomycin HCl (Vancomycin Protocol) 1 each AD IV 01/27/25 20:30 02/01/25 11:42 DC Wound Care/ Dressing Products (Venelex Ointment) apply to coccyx BID TP 01/28/25 21:00 02/27/25 20:59 02/07/25 08:51 1 GM DIAGNOSTICS / RADIOLOGY: [ ] ASSESSMENT: Septic shock with recent diskitis POA Stage 2 pressure ulcer on coccyx POA Acute kidney injury POA, resolved Suspected [place] valve infective endocarditis, POA, ruled out Acute normocytic normochromic anemia POA Acute thrombocytopenia Mild hyponatremia POA Mild hypochloremia POA Lactic acidosis POA Suspected acute urinary tract infection POA, negative cultures PLAN: Pending placement in LTAC 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 * SOFA score of 3 on 01/28, lactic acid 3.8, bilirubin 1.4, creatinine 0.7, on norepinephrine 0.04 mcg/kg/min, platelet count of 122. * Lactic acid trend: 3.8> 2.8> 1.2>1.1>1.1 * Discontinued cefepime2 g q.12 and vancomycin, and started the patient on ampicillin 2g IV(day 6), ceftriaxone 2g IV (day 6) fluconazole[day 7] * Infectious diseases on board follow their recommendations. * MR spine revealed Fluid signal intensity at L4-L5 level with subtle erosive changes at the inferior endplate of L4 and superior endplate of the L5 vertebra with bone marrow edema. 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 * Continue to monitor vitals, CRP, CBC Suspected infective endocarditis of the turtle mountain valve: * Patient's blood cultures grew Gram-positive cocci in chains and Gram-negative rods. * Gram-negative rods identified as pansensitive E coli. * Echocardiography revealed small anterior mitral valve tip vegetation versus myxomatous leaflet * ROBERT done showed no evidence of vegetations or endocarditis and the bubble study was negative * Continue with the current antibiotic regimen. Stage II pressure ulcer on coccyx with granulation and minimal slough with mild periwound erythema and no drainage: * Patient has an open wound to the sacral area. * Wound care consulted, they recommended Venelex b.i.d. and p.r.n.. * Place the patient on a waffle mattress, keep the wounds clean and dry. * Frequent repositioning q.2 hours. * Wound culture positive for Enterococcus faecalis sensitive to ampicillin, gentamicin, penicillin, vancomycin and Jennifer albicans. * Continue current IV antibiotic management. * Continue to serially assess the lesion. DVT prophylaxis with heparin 5000 b.i.d.. GI prophylaxis with Pepcid 20 mg p.o. daily Diet - regular ATTESTATION BY PHYSICIAN I have seen and examined the patient. I reviewed the documentation, medical decision making, and treatment plan as noted by the resident provider above. I agree with the findings and plan of care. Arnaldo Nuñez MD, LAKSHMI MD Feb 07, 2025 10:41
--- NOTE | 2025-02-07 12:05 | NUR ---
cm note call made to Anna Marie wood at [facility]. states pt is still pending expedited determination.
--- NOTE | 2025-02-07 14:10 | PN ---
INFECTIOUS DISEASE PROGRESS NOTE Date of Service: Feb 07, 2025 SUBJECTIVE: This is a 74-year-old male patient who remains afebrile this morning, temperature is 98.2. Tolerating diet well and no reports of nausea or vomiting. Continues to participate well with physical therapy. Still pending insurance appeal approval to [facility]. Continues on ampicillin, ceftriaxone and fluconazole. No other issues reported by nursing. PHYSICAL EXAM EYES: Anicteric. Pupils equal and reactive. HENT: No oral thrush seen, moist Oral mucosa. NECK: Supple, no JVD or thyromegaly. LUNGS: Good air entry. No rales, no rhonchi. CARDIOVASCULAR: S1, S2 regular. No murmur heard. ABDOMEN: Soft, non tender, bowel sounds present. CENTRAL NERVOUS SYSTEM: Awake, alert, oriented x 3. SKIN: No rashes, no swelling. LYMPHATICS: No peripheral lymphadenopathy. MUSCULOSKELETAL: No joint swelling, erythema or tenderness. EXTREMITIES: No cyanosis or clubbing. BACK: Stage II coccygeal ulcer. GENITOURINARY: No dysuria or hematuria. Vital Sign (Last 12 Hours) 02/07/25 02/07/25 02/07/25 02/07/25 03:40 07:59 08:30 11:45 Temp 98.4 98.2 98.2 Pulse 70 76 68 Resp 17 18 18 B/P (MAP) 104/53 110/56 116/59 Pulse Ox 98 98 98 98 O2 Delivery Room Air Room Air Room Air* Room Air O2 Flow Rate 0 FiO2 21 21 Intake & Output (last 24hrs) 02/06/25 02/06/25 02/07/25 15:00 23:00 07:00 Intake Total 60.0 ml 320.0 ml Output Total 200 ml 150 ml 500 ml Balance -140.0 ml 170.0 ml -500 ml LABS: Laboratory: Test 02/07/25 04:25 02/06/25 05:25 Range/Units White Blood Count 4.1 #L 4.8-10.8 K/uL Red Blood Count 3.07 L 4.50-6.20 MIL/uL Hemoglobin 9.9 L 14.0-18.0 g/dL Hematocrit 30.3 L 42-54 % Mean Corpuscular Volume 98.7 79-99 fL Mean Corpuscular Hemoglobin 32.2 27.0-33.0 pg Mean Corpuscular Hemoglobin Concent 32.7 32.0-36.0 g/dL Red Cell Distribution Width 15.8 H 11.0-15.5 % Platelet Count 120 L 130-400 K/uL Mean Platelet Volume 9.2 7.5-10.5 fL Immature Granulocyte % (Auto) 0.5 0-1 % Neutrophils (%) (Auto) 51.1 40.0-77.0 % Lymphocytes (%) (Auto) 42.0 21.0-51.0 % Monocytes (%) (Auto) 4.9 3.0-13.0 % Eosinophils (%) (Auto) 1.0 0.0-8.0 % Basophils (%) (Auto) 0.5 0.0-5.0 % Neutrophils # (Auto) 2.1 1.8-7.7 K/uL Lymphocytes # (Auto) 1.7 1.0-4.8 K/uL Monocytes # (Auto) 0.2 0.1-1.0 K/uL Eosinophils # (Auto) 0.04 0.00-0.70 K/uL Basophils # (Auto) 0.02 0.00-0.20 K/uL Absolute Immature Granulocyte (auto 0.02 0-1 K/uL Nucleated Red Blood Cells 0.0 0.0-0.19 % Sodium Level 139 136-145 mmol/L Potassium Level 3.6 3.5-5.1 mmol/L Chloride Level 107 101-111 mmol/L Carbon Dioxide Level 27 21-32 mmol/L Blood Urea Nitrogen 12 7-18 mg/dL Creatinine 0.6 0.5-1.3 mg/dL Glomerular Filtration Rate Calc 102 >90 mL/min Random Glucose 128 H 70-105 mg/dL Total Calcium 8.2 L 8.5-10.1 mg/dL C-Reactive Protein, Quantitative 32.10 H 0.5-3.0 mg/L Procalcitonin 0.38 0.05-0.5 ng/mL ASSESSMENT: E coli bacteremia. Lumbar spine osteomyelitis. Mitral valve vegetation, ruled out. Sepsis. Stage II coccygeal ulcer with Jennifer albicans infection. Urinary tract infection. Leukocytosis, resolved. Diabetes mellitus. PLAN: Continue ceftriaxone. Continue fluconazole. Continue ampicillin. Continue cefepime IV. Continue GI prophylaxis. Continue pain management. Continue wound care. Continue antidiabetics. Patient will need 5 weeks of antibiotics. Pending insurance appeal approval to [facility]. This case was reviewed and discussed with my supervising physician Dr. Gandhi and the above assessment and plan was formulated and agreed upon. ATTESTATION BY PHYSICIAN I have seen and examined the patient. I reviewed the documentation, medical decision making, and treatment plan as noted by the mid-level provider above. I agree with the findings and plan of care. MAURICIO GANDHI MD, MIRTA L [facility] Feb 07, 2025 14:10
[2025-02-08] VITALS (7 sets, daily range): BP systolic 108–130; BP diastolic 53–67; PULSE 67–85; RESP 16–20; TEMP 97.4–98.4; O2SAT 74
[2025-02-08 04:29] LABS: IMMATURE GRANULOCYTE ABSOLUTE 0.02 K/uL (0-1); NUCLEATED RED BLOOD CELLS 0.0 % (0.0-0.19); PLATELET COUNT (AUTO) 121 K/uL (130-400); RED BLOOD CELL COUNT(AUTO) 3.12 MIL/uL (4.50-6.20); RED CELL DISTRIBUTION WIDTH 15.3 % (11.0-15.5); WHITE BLOOD COUNT (AUTO) 4.6 K/uL (4.8-10.8)
[2025-02-08 04:41] LABS: CREATININE 0.5 mg/dL (0.5-1.3); GLOMERULAR FILTR. RATE CALC 108.0 mL/min (>90); GLUCOSE,RANDOM 104.0 mg/dL (70-105); SODIUM SERUM 142.0 mmol/L (136-145); UREA NITROGEN, BLOOD 11.0 mg/dL (7-18)
--- NOTE | 2025-02-08 15:11 | PN ---
[facility] PROGRESS NOTE Date of Service: Feb 08, 2025 Time of Service: 15:06 SUBJECTIVE: This is a 74-year-old male past medical history of hypertension, diabetes, hyperlipidemia ,UTI due to Ecoli and obesity with past surgical history of right colectomy and polyps removal who was brought by EMS to the ED for complaints of fever and generalized body weakness.Patient was recently admitted in this facility for septic shock and was treated with ABT for E coli and was receiving IV ABT as outpatient managed by as per patient .Patient reports he was also recently admitted in [place] and was diagnosed with Diskitis and was discharged yesterday and came back here.Today he started having fever so he decided to come to the ED for evaluation.Upon ER arrival patient V/S was T99.5,HR 119,BP 70/42 and Sat 96% RA. Seen and examined patient in the ER awake,alert and coherent,states he feels much better now than when he came in he said.On further evaluation ,patient has an open wound to sacral area,and patient reports he has been having it since he was discharge home.Patient is also on Levophed drip.Patient denies,nausea,vomiting,chest pain,palpitation,cough and shortness of breath. Latest vital signs heart rate 67, blood pressure 90/50 saturation 99% on room air. Labs: WBC 13 with negative left shift of neutrophils 89, hemoglobin 10, hematocrit 29, platelet count 122. Sodium 132, chloride 100, BUN 34, lactic acid 3.8-2.8 troponin 41. Urinalysis significant for urine bilirubin small, urine urobilinogen two, small esterase, urine WBC 6-10. While in the ER patient received vancomycin 1 g IV, Zosyn 3.375 IV, Tylenol 1000 mg p.o. and fluid re suscitation of NS 30 mL/kilogram over 3 hours and morphine 1 mg IV. We will admit patient for further medical management. 01/28: Patient was seen and evaluated at bedside in room 207. He was awake, alert, and oriented 3, sitting comfortably in his chair during the encounter. He denies dizziness, generalized weakness, chest pain, shortness of breath, na usea, vomiting, or other acute complaints today. He states he is relieved that his blood pressure has been improving. He remains on norepinephrine at 0.04 mcg/kg/hr. A 2D echocardiogram obtained today revealed suspicious vegetations on the mitral valve; cardiology has been consulted and evaluation is pending. Infectious Diseases has also evaluated the patient and recommended continuing vancomycin, ceftriaxone, and metronidazole (Flagyl). Blood cultures have grown gram-positive cocci in chains; final organism identification and sensitivities are pending. The patient is also pending MRI, but current pressor support is not MRI-compatible. He will require weaning off norepinephrine prior to being transported safely for imaging. He denies any new symptoms today and remains hemodynamically stable aside from ongoing vasopressor requirement. 01/29: Patient was seen and evaluated at bedside in room 207. He was awake, a lert, and oriented 3. He reports feeling much better today and denies any active complaints, including chest pain, shortness of breath, dizziness, nausea, or abdominal discomfort. He is now off vasopressors and maintaining stable blood pressure around 110/70, and will be downgraded to PCCU today. Infectious Diseases has recommended a transesophageal echocardiogram (ROBERT) to further evaluate for infective endocarditis; this is currently pending. Cardiology has been consulted for management of suspected endocarditis, and their evaluation is pending as well. He remains on vancomycin, and ceftriaxone was discontinued today. Identification and sensitivities of the bacteremia are still pending. Patient has no additional concerns at this time, and all questions were addressed. 01/30: Patient was seen and evaluated at bedside in room 2. He was awake, alert, and oriented x3. patient continues to do well and denies any active complaints today. Cardiology evaluated the patient and recommended a ROBERT tomorrow to further evaluate the mitral valve vegetation seen on the ROBERT. Patient was informed that his code status will have to be changed to full code for ROBERT, and he verbalized understanding and is in agreement with proceeding to ROBERT. He continues on vancomycin (day 3). Case management has been trying to get the patient placed on a correction facility as the patient was rejected at [facility]. One of his blood cultures grew E coli which was pansensitive. We are still pending the ID and susceptibility of the Gram-positive cocci seen on the other blood culture. Repeat blood cultures were sent today, follow up with the results. Patient is still pending MRI of the spine to evaluate his osteomyelitis, follow up with Radiology. Patient has no other concerns, and all questions were addressed. 01/31/2025 Patient is seen and examined at the bedside today. Vital signs remained stable with blood pressure in 100s/60s, heart rate in 70s, oxygen saturation greater t crane 95% on room air. He has been afebrile. No acute events last night. He reports feeling well and denies fever, chills, chest pain, palpitations, abdominal pain or diarrhea or any new symptoms. He underwent a ROBERT today which showed no evidence of vegetations or endocarditis and the bubble study was negative. He remains on fluconazole, vancomycin and cefepime. Labs WBC 6.2, hemoglobin 9.6, BNP unremarkable, CRP trended down from 60.90 to 37. We will continue to monitor his clinical status. 02/01/2025: The patient was seen and evaluated at bedside in room 227. He was awake, alert, and oriented x3. he reports feeling well today with no new symptoms. He denies shortness of breath, chest pain, palpitations, lightheadedness, generalized weakness, fevers, or any symptoms concerning for ongoing sepsis. He does report constipation, stating that his last bowel movement was2 days ago and he would like some medication for relief; however, he prefers to receive treatment after physical therapy works with him today. A ROBERT was negative for endocarditis. 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 He is currently receiving IV antibiotics, and IV fluconazole was added due to Jennifer albicans growth from his sacral ulcer. His 1st blood culture returned positive for pansensitive E coli; repeat blood cultures are negative so far. He is pending placement for an LTAC, awaiting insurance authorization. The patient remains hemodynamically stable and has no additional complaints at this time. 02.02.2025: The patient was seen and evaluated at bedside in room 227. He was awake, alert, and oriented x3. The patient reports abdominal pain and has not had a bowel movement for the past several days. He was started on lactulose BID yesterday but has not yet had a bowel movement. Abdominal X-ray demonstrates fecal impaction in the distal sigmoid colon and rectum. A mineral oil enema has been ordered. The patient is pending LTAC placement and Infectious Disease recommendations for a minimal anterior epidural abscess. He is currently receiving ampicillin and ceftriaxone. 02.03.2025: Patient is seen and evaluated in room number 227. No new complaints reported initially. WBC is stable at 5.1, hemoglobin remains stable at 9.7, and elect rolytes are within normal limits. Calcium is 8.3 with albumin 1.8; corrected calcium is 10.06, which is within normal range. CRP is trending down at 35, and ALP is elevated at 268. Patient reports having a bowel movement yesterday and passed three to four hard and painful stools. Patient is also experiencing rectal pain, stating that it comes and goes. This pain is likely related to the recent passage of hard stools. We have ordered Anusol-HC 25 mg suppository for symptomatic relief. We are currently pending [facility] approval. 02.04.2025: The patient was seen and evaluated in room 115. Laboratory results show a WBC of 4.6, a platelet count of 114, and a procalcitonin level of 0.52 ng/mL. The patient was denied for [facility], and case management is actively working on placement. 02.05.2025: The patient was seen and evaluated in room 327. Laboratory results show a WBC of 5.2,and a platelet count of 106. The patient was denied for [facility], and case management is actively working on placement. Patient reported of having three episodes of diarrhea yesterday morning but he denied having any episode of loose stool today. 02.06.2025: Patient seen and evaluated in room 327. Vital signs stable with BP 114/56. Laboratory studies show WBC 5.6, hemoglobin stable at 9.9, and platelet count 112. Inflammatory markers improving with CRP down to 32 and procalcitonin trending down to 0.38. Patient is currently on a heart-healthy diet but has requested transition to a regular diet. He also expressed his desire to change code status from DNR/DNI to Full Code. Case management is working on placement at [facility]; however, the process is still pending and will not be completed before Sunday. 02.07.2025: Patient was seen and evaluated in room 327. His vital signs are stable, and he reported no active complaints. Nursing staff also reported no events during the night. He denied any new or ongoing symptoms. Current medications include ampicillin, ceftriaxone, and fluconazole. The patient is pending insurance appeal approval for [facility]. Laboratory results today show a WB C of 4.4, hemoglobin of 9.9, and platelet count of 120. 02/08/2025 Patient seen and evaluated in room 327. No overnight events and no new complaints. Vitals stable. Labs today WBC 4.6, Hgb 9.1, Plt 121. BMP stable with Na 142, K 3.7, BUN 11, Cr 0.5. CRP trending down 18.2. Patient on ampicillin, ceftriaxone, and fluconazole. Clinical status stable. [facility] approval still pending with case management following. REVIEW OF SYSTEMS CONSTITUTIONAL: Denies night sweats. No unintentional weight loss reported. NEUROLOGICAL: Denies headache, amaurosis fugax,sensory deficit, vertigo/spinning sensation, gait abnormalities, or tremors. ENT: No hearing loss, otalgia, otorrhea, rhinitis, rhinorrhea, hoarseness, or sore throat. CARDIOVASCULAR: Denies any exertional angina, dyspnea on exertion, orthopnea, paroxysmal nocturnal dyspnea, palpitations, life-threatening arrhythmias, claudication. PULMONARY: Denies any shortness of breath, cough, phlegm/sputum, hemoptysis, pleuritic chest pain. SLEEP: Denies morning headaches, daytime somnolence or napping. Denies difficulty falling asleep, staying asleep, waking from sleep. Denies knowledge of snoring. GASTROINTESTINAL: Denies any type of dysphagia to either liquids or solids. Denies nausea, vomiting, pyrosis, early satiety, diarrhea or changes in stool consistency or caliber. Denies coffee-ground emesis, hematemesis, hematochezia, or melanotic stools. GENITOURINARY: Denies frequency, urgency, nocturia, hematuria or incontinence ENDOCRINOLOGIC: Denies polyuria, polydipsia, polyphagia or heat/cold intolerances. HEMATOLOGIC: Denies thrombophilia/previous clots, or coagulopathy/bleeding disorders. PSYCHIATRIC: Denies any suicidal or homicidal ideation. Denies hallucinations. PHYSICAL EXAM GENERAL APPEARANCE: The patient is awake, alert, and oriented, in no acute cardiopulmonary distress. NEUROLOGICAL: Motor is 5/5 in bilateral upper and lower extremities proximal to distal. No sensory deficits. HEENT: Face is symmetric. Pupils are equal and reactive. Extraocular movements are intact. NECK: Supple. No thyromegaly. No submental, submandibular, pre-/postauricular, occipital or supraclavicular lymphadenopathy. CHEST: Normal chest expansion. No Telemetry. LUNGS: Absence of any rales, rhonchi or any wheezing. CARDIOVASCULAR: Regular. S1 and S2 normal. No appreciable rubs, murmurs or gallops. ABDOMEN: Soft, nontender, and nondistended. There is no rebound, voluntary guarding, or rigidity. : Deferred. No Mariano. EXTREMITIES: Non-edematous and not cyanotic. No clubbing. Good capillary refill. SKIN: open wound to sacral area Vital Signs (last 8hr) Date Time Temp Pulse Resp B/P (MAP) Pulse Ox O2 Delivery O2 Flow Rate FiO2 02/08/25 11:36 98.1 78 19 125/61 100 Room Air 21 02/08/25 09:43 74 Room Air* 0 21 02/08/25 08:00 97.3 74 19 119/58 100 Room Air 21 LABS: Laboratory: Test 02/08/25 04:07 Range/Units White Blood Count 4.6 L 4.8-10.8 K/uL Red Blood Count 3.12 L 4.50-6.20 MIL/uL Hemoglobin 10.2 L 14.0-18.0 g/dL Hematocrit 29.8 L 42-54 % Mean Corpuscular Volume 95.5 79-99 fL Mean Corpuscular Hemoglobin 32.7 27.0-33.0 pg Mean Corpuscular Hemoglobin Concent 34.2 32.0-36.0 g/dL Red Cell Distribution Width 15.3 11.0-15.5 % Platelet Count 121 L 130-400 K/uL Mean Platelet Volume 8.9 7.5-10.5 fL Immature Granulocyte % (Auto) 0.4 0-1 % Neutrophils (%) (Auto) 56.8 40.0-77.0 % Lymphocytes (%) (Auto) 36.3 21.0-51.0 % Monocytes (%) (Auto) 4.8 3.0-13.0 % Eosinophils (%) (Auto) 1.3 0.0-8.0 % Basophils (%) (Auto) 0.4 0.0-5.0 % Neutrophils # (Auto) 2.6 1.8-7.7 K/uL Lymphocytes # (Auto) 1.7 1.0-4.8 K/uL Monocytes # (Auto) 0.2 0.1-1.0 K/uL Eosinophils # (Auto) 0.06 0.00-0.70 K/uL Basophils # (Auto) 0.02 0.00-0.20 K/uL Absolute Immature Granulocyte (auto 0.02 0-1 K/uL Nucleated Red Blood Cells 0.0 0.0-0.19 % Sodium Level 142 136-145 mmol/L Potassium Level 3.7 3.5-5.1 mmol/L Chloride Level 108 101-111 mmol/L Carbon Dioxide Level 26 21-32 mmol/L Blood Urea Nitrogen 11 7-18 mg/dL Creatinine 0.5 0.5-1.3 mg/dL Glomerular Filtration Rate Calc 108 >90 mL/min Random Glucose 104 70-105 mg/dL Total Calcium 8.1 L 8.5-10.1 mg/dL C-Reactive Protein, Quantitative 18.20 H 0.5-3.0 mg/L Procalcitonin 0.19 0.05-0.5 ng/mL Current Medications Medications (Trade) Dose Ordered Sig/Panchito Route PRN Reason Start Time Stop Time Status Last Admin Dose Admin Acetaminophen (TYLenol 325MG TAB) 650 mg Q4H PRN PO MILD PAIN (1-3) 01/27/25 20:00 02/26/25 19:59 02/08/25 11:32 650 MG Acetaminophen (TYLenol 325MG TAB) 650 mg Q6H PRN PO TEMPERATURE GREATER THAN 101.5 01/27/25 20:00 02/26/25 19:59 Acetaminophen/ Hydrocodone Bitart (NORco 5/325MG) 1 tab Q6H PRN PO MODERATE PAIN (4-6) 01/27/25 16:00 02/01/25 12:00 DC 01/31/25 20:35 1 TAB Ampicillin Sodium (Ampicillin 2gm+NS 100ml) 2 gm Q6H IV 02/01/25 12:00 02/22/25 11:59 02/08/25 11:28 2 GM Cefepime HCl (MAXipime 2 gm vial) 2 gm Q12H IVPB 01/27/25 21:30 02/01/25 11:42 DC 02/01/25 09:34 2 GM Ceftriaxone Sodium (Rocephin 2gm Inj) 2 gm Q12H IVPB 02/01/25 12:00 02/11/25 11:59 02/08/25 11:28 2 GM Famotidine (Pepcid 20mg Tab) 20 mg DAILY PO 01/28/25 09:00 02/27/25 08:59 02/08/25 09:29 20 MG Fluconazole (DiFLUCan 100 mg TAB) 200 mg DAILY PO 01/31/25 09:00 03/02/25 08:59 02/08/25 09:29 200 MG Heparin Sodium (Porcine) (HEParin 5,000 UNIT VIAL) 5,000 unit Q12H SQ 01/28/25 09:00 02/27/25 08:59 02/08/25 09:28 5,000 UNIT Hydrocortisone Acetate (anuSOL-HC 25MG SUPP) 1 supp BID IA 02/03/25 21:00 03/05/25 20:59 02/08/25 09:29 1 SUPP Lactated Ringer's 1,000 ml @ 75 mls/hr [id number] IV 01/27/25 21:30 02/04/25 06:36 DC 02/04/25 02:06 75 MLS/HR Lactulose (Constulose 20gm/ 30ml Udcup) 20 gm BID PO 02/02/25 09:00 02/05/25 06:22 DC 02/04/25 08:28 20 GM Lactulose (Constulose 20gm/ 30ml Udcup) 20 gm BID PRN PO CONSTIPATION 02/01/25 16:30 02/04/25 06:36 DC 02/01/25 21:31 20 GM Magnesium Sulfate 50 ml @ 0 mls/hr PROTOCOL PRN IV OTHER [SEE ORDER COMMENTS] 01/27/25 20:00 02/26/25 19:59 01/31/25 08:41 25 MLS/HR Metronidazole/ Sodium Chloride (flaGYL) 500 mg Q8H IV 01/27/25 21:30 01/30/25 23:42 DC 01/30/25 22:31 500 MG Morphine Sulfate (morPHINE 2MG SYG) 1 mg Q4H PRN IVP SEVERE PAIN (7-10) 01/27/25 15:30 01/27/25 15:47 DC Norepinephrine 250 ml @ 0 mls/hr PROTOCOL IV 01/27/25 17:00 01/29/25 14:46 DC 01/27/25 17:50 26.25 MLS/HR Nystatin (NystOP 15 GM POWDER) coccyx BID TP 01/30/25 21:00 03/01/25 20:59 02/08/25 09:30 1 APPL Ondansetron HCl (zoFRAN 4MG INJ) 4 mg Q6H PRN IV NAUSEA/VOMITING 01/27/25 20:00 02/26/25 19:59 02/01/25 13:10 4 MG Pharmacy Profile Note (Pharmacy Communication) 1 each AD MISC 01/28/25 10:30 01/28/25 10:21 DC Piperacillin Sod/ Tazobactam Sod 50 ml @ 12.5 mls/hr Q8H IV 01/27/25 22:00 01/27/25 21:32 DC Potassium Chloride 100 ml @ 100 mls/hr AD PRN IV POTASSIUM PROTOCOL 01/27/25 20:00 02/26/25 19:59 Potassium Chloride (K-Dur/Klor-Con 20meq) 20 meq AD PRN PO POTASSIUM PROTOCOL 01/27/25 20:00 02/26/25 19:59 02/07/25 15:41 20 MEQ Potassium Chloride (KCl 10% Elixir 20meq/15ml) 20 meq AD PRN PO POTASSIUM PROTOCOL 01/27/25 20:00 02/26/25 19:59 Sodium Chloride 1,000 ml @ 100 mls/hr Q10H IV 01/27/25 20:00 01/28/25 15:59 DC 01/27/25 20:04 100 MLS/HR Vancomycin HCl 250 ml @ 125 mls/hr BID@0800,2000 IV 01/31/25 08:00 02/01/25 11:42 DC 02/01/25 09:34 125 MLS/HR Vancomycin HCl 250 ml @ 125 mls/hr ONCE IV 01/27/25 20:00 01/27/25 20:09 DC Vancomycin HCl 250 ml @ 125 mls/hr Q24H IV 01/28/25 20:00 01/30/25 23:59 DC 01/30/25 20:34 125 MLS/HR Vancomycin HCl (Vancomycin Protocol) 1 each AD IV 01/27/25 20:30 02/01/25 11:42 DC Wound Care/ Dressing Products (Venelex Ointment) apply to coccyx BID TP 01/28/25 21:00 02/27/25 20:59 02/08/25 09:30 1 GM DIAGNOSTICS / RADIOLOGY: [ ] ASSESSMENT: Septic shock with recent diskitis POA Stage 2 pressure ulcer on coccyx POA Acute kidney injury POA, resolved Suspected [place] valve infective endocarditis, POA, ruled out Acute normocytic normochromic anemia POA Acute thrombocytopenia Mild hyponatremia POA Mild hypochloremia POA Lactic acidosis POA Suspected acute urinary tract infection POA, negative cultures PLAN: Pending placement in LTAC 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 * SOFA score of 3 on 01/28, lactic acid 3.8, bilirubin 1.4, creatinine 0.7, on norepinephrine 0.04 mcg/kg/min, platelet count of 122. * Lactic acid trend: 3.8> 2.8> 1.2>1.1>1.1 * Discontinued cefepime2 g q.12 and vancomycin, and started the patient on ampicillin 2g IV(day 6), ceftriaxone 2g IV (day 6) fluconazole[day 7] * Infectious diseases on board follow their recommendations. * MR spine revealed Fluid signal intensity at L4-L5 level with subtle erosive changes at the inferior endplate of L4 and superior endplate of the L5 vertebra with bone marrow edema. 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 * Continue to monitor vitals, CRP, CBC Suspected infective endocarditis of the [place] valve: * Patient's blood cultures grew Gram-positive cocci in chains and Gram-negative rods. * Gram-negative rods identified as pansensitive E coli. * Echocardiography revealed small anterior mitral valve tip vegetation versus myxomatous leaflet * ROBERT done showed no evidence of vegetations or endocarditis and the bubble study was negative * Continue with the current antibiotic regimen. Stage II pressure ulcer on coccyx with granulation and minimal slough with mild periwound erythema and no drainage: * Patient has an open wound to the sacral area. * Wound care consulted, they recommended Venelex b.i.d. and p.r.n.. * Place the patient on a waffle mattress, keep the wounds clean and dry. * Frequent repositioning q.2 hours. * Wound culture positive for Enterococcus faecalis sensitive to ampicillin, gentamicin, penicillin, vancomycin and Jennifer albicans. * Continue current IV antibiotic management. * Continue to serially assess the lesion. DVT prophylaxis with heparin 5000 b.i.d.. GI prophylaxis with Pepcid 20 mg p.o. daily Diet - regular ATTESTATION BY PHYSICIAN I have seen and examined the patient. I reviewed the documentation, medical decision making, and treatment plan as noted by the resident physician above. I agree with the findings and plan of care. EDRICK JOHNSON MD, GERARDO MD Feb 08, 2025 15:11
--- NOTE | 2025-02-08 21:56 | PN ---
INFECTIOUS DISEASE PROGRESS NOTE Date of Service: Feb 08, 2025 SUBJECTIVE: This is a 74-year-old male patient who was seen and examined at bedside in room 327. Patient is awake in no distress. Denying nausea or vomiting. No fever. Continues on ampicillin, ceftriaxone and fluconazole. Participated very well with physical therapy. Still pending insurance appeal approval to [facility]. PHYSICAL EXAM EYES: Anicteric. Pupils equal and reactive. HENT: No oral thrush seen, moist Oral mucosa. NECK: Supple, no JVD or thyromegaly. LUNGS: Good air entry. No rales, no rhonchi. CARDIOVASCULAR: S1, S2 regular. No murmur heard. ABDOMEN: Soft, non tender, bowel sounds present. CENTRAL NERVOUS SYSTEM: Awake, alert, oriented x 3. SKIN: No rashes, no swelling. LYMPHATICS: No peripheral lymphadenopathy. MUSCULOSKELETAL: No joint swelling, erythema or tenderness. EXTREMITIES: No cyanosis or clubbing. BACK: Stage II coccygeal ulcer. GENITOURINARY: No dysuria or hematuria. Vital Sign (Last 12 Hours) 02/08/25 02/08/25 02/08/25 11:36 16:00 21:44 Temp 98.1 98.4 98.4 Pulse 78 85 77 Resp 19 19 16 B/P (MAP) 125/61 108/53 109/58 Pulse Ox 100 100 98 O2 Delivery Room Air Room Air Room Air FiO2 21 21 Intake & Output (last 24hrs) 02/07/25 02/07/25 02/08/25 15:00 23:00 07:00 Intake Total 10.0 ml 1010.0 ml Output Total 550 ml 700 ml Balance 10.0 ml 460.0 ml -700 ml LABS: Laboratory: Test 02/08/25 04:07 Range/Units White Blood Count 4.6 L 4.8-10.8 K/uL Red Blood Count 3.12 L 4.50-6.20 MIL/uL Hemoglobin 10.2 L 14.0-18.0 g/dL Hematocrit 29.8 L 42-54 % Mean Corpuscular Volume 95.5 79-99 fL Mean Corpuscular Hemoglobin 32.7 27.0-33.0 pg Mean Corpuscular Hemoglobin Concent 34.2 32.0-36.0 g/dL Red Cell Distribution Width 15.3 11.0-15.5 % Platelet Count 121 L 130-400 K/uL Mean Platelet Volume 8.9 7.5-10.5 fL Immature Granulocyte % (Auto) 0.4 0-1 % Neutrophils (%) (Auto) 56.8 40.0-77.0 % Lymphocytes (%) (Auto) 36.3 21.0-51.0 % Monocytes (%) (Auto) 4.8 3.0-13.0 % Eosinophils (%) (Auto) 1.3 0.0-8.0 % Basophils (%) (Auto) 0.4 0.0-5.0 % Neutrophils # (Auto) 2.6 1.8-7.7 K/uL Lymphocytes # (Auto) 1.7 1.0-4.8 K/uL Monocytes # (Auto) 0.2 0.1-1.0 K/uL Eosinophils # (Auto) 0.06 0.00-0.70 K/uL Basophils # (Auto) 0.02 0.00-0.20 K/uL Absolute Immature Granulocyte (auto 0.02 0-1 K/uL Nucleated Red Blood Cells 0.0 0.0-0.19 % Sodium Level 142 136-145 mmol/L Potassium Level 3.7 3.5-5.1 mmol/L Chloride Level 108 101-111 mmol/L Carbon Dioxide Level 26 21-32 mmol/L Blood Urea Nitrogen 11 7-18 mg/dL Creatinine 0.5 0.5-1.3 mg/dL Glomerular Filtration Rate Calc 108 >90 mL/min Random Glucose 104 70-105 mg/dL Total Calcium 8.1 L 8.5-10.1 mg/dL C-Reactive Protein, Quantitative 18.20 H 0.5-3.0 mg/L Procalcitonin 0.19 0.05-0.5 ng/mL ASSESSMENT: E coli bacteremia. Lumbar spine osteomyelitis. Mitral valve vegetation, ruled out. Sepsis. Stage II coccygeal ulcer with Jennifer albicans infection. Urinary tract infection. Leukocytosis, resolved. Diabetes mellitus. PLAN: Continue ceftriaxone. Continue fluconazole. Continue ampicillin. Continue cefepime IV. Continue GI prophylaxis. Continue pain management. Continue wound care. Continue antidiabetics. Patient will need 5 weeks of antibiotics. Pending insurance appeal approval to [facility]. This case was reviewed and discussed with my supervising physician Dr. Gandhi and the above assessment and plan was formulated and agreed upon. ATTESTATION BY PHYSICIAN I have seen and examined the patient. I reviewed the documentation, medical decision making, and treatment plan as noted by the mid-level provider above. I agree with the findings and plan of care. MAURICIO GANDHI MD, MIRTA L [facility] Feb 08, 2025 21:56
[2025-02-09] VITALS (7 sets, daily range): BP systolic 112–135; BP diastolic 49–60; PULSE 66–83; RESP 17–18; TEMP 97.7–98.6
[2025-02-09 06:05] LABS: IMMATURE GRANULOCYTE ABSOLUTE 0.02 K/uL (0-1); NUCLEATED RED BLOOD CELLS 0.0 % (0.0-0.19); PLATELET COUNT (AUTO) 104 K/uL (130-400); RED BLOOD CELL COUNT(AUTO) 3.21 MIL/uL (4.50-6.20); RED CELL DISTRIBUTION WIDTH 15.6 % (11.0-15.5); WHITE BLOOD COUNT (AUTO) 5.5 K/uL (4.8-10.8)
[2025-02-09 06:17] LABS: CREATININE 0.7 mg/dL (0.5-1.3); GLOMERULAR FILTR. RATE CALC 97.0 mL/min (>90); GLUCOSE,RANDOM 94.0 mg/dL (70-105); SODIUM SERUM 140.0 mmol/L (136-145); UREA NITROGEN, BLOOD 12.0 mg/dL (7-18)
--- NOTE | 2025-02-09 17:58 | PN ---
[facility] PROGRESS NOTE Date of Service: Feb 09, 2025 Time of Service: 17:47 SUBJECTIVE: This is a 74-year-old male past medical history of hypertension, diabetes, hyperlipidemia ,UTI due to Ecoli and obesity with past surgical history of right colectomy and polyps removal who was brought by EMS to the ED for complaints of fever and generalized body weakness.Patient was recently admitted in this facility for septic shock and was treated with ABT for E coli and was receiving IV ABT as outpatient managed by as per patient .Patient reports he was also recently admitted in [place] and was diagnosed with Diskitis and was discharged yesterday and came back here.Today he started having fever so he decided to come to the ED for evaluation.Upon ER arrival patient V/S was T99.5,HR 119,BP 70/42 and Sat 96% RA. Seen and examined patient in the ER awake,alert and coherent,states he feels much better now than when he came in he said.On further evaluation ,patient has an open wound to sacral area,and patient reports he has been having it since he was discharge home.Patient is also on Levophed drip.Patient denies,nausea,vomiting,chest pain,palpitation,cough and shortness of breath. Latest vital signs heart rate 67, blood pressure 90/50 saturation 99% on room air. Labs: WBC 13 with negative left shift of neutrophils 89, hemoglobin 10, hematocrit 29, platelet count 122. Sodium 132, chloride 100, BUN 34, lactic acid 3.8-2.8 troponin 41. Urinalysis significant for urine bilirubin small, urine urobilinogen two, small esterase, urine WBC 6-10. While in the ER patient received vancomycin 1 g IV, Zosyn 3.375 IV, Tylenol 1000 mg p.o. and fluid re suscitation of NS 30 mL/kilogram over 3 hours and morphine 1 mg IV. We will admit patient for further medical management. 01/28: Patient was seen and evaluated at bedside in room 207. He was awake, alert, and oriented 3, sitting comfortably in his chair during the encounter. He denies dizziness, generalized weakness, chest pain, shortness of breath, na usea, vomiting, or other acute complaints today. He states he is relieved that his blood pressure has been improving. He remains on norepinephrine at 0.04 mcg/kg/hr. A 2D echocardiogram obtained today revealed suspicious vegetations on the mitral valve; cardiology has been consulted and evaluation is pending. Infectious Diseases has also evaluated the patient and recommended continuing vancomycin, ceftriaxone, and metronidazole (Flagyl). Blood cultures have grown gram-positive cocci in chains; final organism identification and sensitivities are pending. The patient is also pending MRI, but current pressor support is not MRI-compatible. He will require weaning off norepinephrine prior to being transported safely for imaging. He denies any new symptoms today and remains hemodynamically stable aside from ongoing vasopressor requirement. 01/29: Patient was seen and evaluated at bedside in room 207. He was awake, a lert, and oriented 3. He reports feeling much better today and denies any active complaints, including chest pain, shortness of breath, dizziness, nausea, or abdominal discomfort. He is now off vasopressors and maintaining stable blood pressure around 110/70, and will be downgraded to PCCU today. Infectious Diseases has recommended a transesophageal echocardiogram (ROBERT) to further evaluate for infective endocarditis; this is currently pending. Cardiology has been consulted for management of suspected endocarditis, and their evaluation is pending as well. He remains on vancomycin, and ceftriaxone was discontinued today. Identification and sensitivities of the bacteremia are still pending. Patient has no additional concerns at this time, and all questions were addressed. 01/30: Patient was seen and evaluated at bedside in room 2. He was awake, alert, and oriented x3. patient continues to do well and denies any active complaints today. Cardiology evaluated the patient and recommended a ROBERT tomorrow to further evaluate the mitral valve vegetation seen on the ROBERT. Patient was informed that his code status will have to be changed to full code for ROBERT, and he verbalized understanding and is in agreement with proceeding to ROBERT. He continues on vancomycin (day 3). Case management has been trying to get the patient placed on a senior care facility as the patient was rejected at [facility]. One of his blood cultures grew E coli which was pansensitive. We are still pending the ID and susceptibility of the Gram-positive cocci seen on the other blood culture. Repeat blood cultures were sent today, follow up with the results. Patient is still pending MRI of the spine to evaluate his osteomyelitis, follow up with Radiology. Patient has no other concerns, and all questions were addressed. 01/31/2025 Patient is seen and examined at the bedside today. Vital signs remained stable with blood pressure in 100s/60s, heart rate in 70s, oxygen saturation greater t crane 95% on room air. He has been afebrile. No acute events last night. He reports feeling well and denies fever, chills, chest pain, palpitations, abdominal pain or diarrhea or any new symptoms. He underwent a ROBERT today which showed no evidence of vegetations or endocarditis and the bubble study was negative. He remains on fluconazole, vancomycin and cefepime. Labs WBC 6.2, hemoglobin 9.6, BNP unremarkable, CRP trended down from 60.90 to 37. We will continue to monitor his clinical status. 02/01/2025: The patient was seen and evaluated at bedside in room 227. He was awake, alert, and oriented x3. he reports feeling well today with no new symptoms. He denies shortness of breath, chest pain, palpitations, lightheadedness, generalized weakness, fevers, or any symptoms concerning for ongoing sepsis. He does report constipation, stating that his last bowel movement was2 days ago and he would like some medication for relief; however, he prefers to receive treatment after physical therapy works with him today. A ROBERT was negative for endocarditis. 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 He is currently receiving IV antibiotics, and IV fluconazole was added due to Jennifer albicans growth from his sacral ulcer. His 1st blood culture returned positive for pansensitive E coli; repeat blood cultures are negative so far. He is pending placement for an LTAC, awaiting insurance authorization. The patient remains hemodynamically stable and has no additional complaints at this time. 02.02.2025: The patient was seen and evaluated at bedside in room 227. He was awake, alert, and oriented x3. The patient reports abdominal pain and has not had a bowel movement for the past several days. He was started on lactulose BID yesterday but has not yet had a bowel movement. Abdominal X-ray demonstrates fecal impaction in the distal sigmoid colon and rectum. A mineral oil enema has been ordered. The patient is pending LTAC placement and Infectious Disease recommendations for a minimal anterior epidural abscess. He is currently receiving ampicillin and ceftriaxone. 02.03.2025: Patient is seen and evaluated in room number 227. No new complaints reported initially. WBC is stable at 5.1, hemoglobin remains stable at 9.7, and elect rolytes are within normal limits. Calcium is 8.3 with albumin 1.8; corrected calcium is 10.06, which is within normal range. CRP is trending down at 35, and ALP is elevated at 268. Patient reports having a bowel movement yesterday and passed three to four hard and painful stools. Patient is also experiencing rectal pain, stating that it comes and goes. This pain is likely related to the recent passage of hard stools. We have ordered Anusol-HC 25 mg suppository for symptomatic relief. We are currently pending SOLARA approval. 02.04.2025: The patient was seen and evaluated in room 115. Laboratory results show a WBC of 4.6, a platelet count of 114, and a procalcitonin level of 0.52 ng/mL. The patient was denied for Solara, and case management is actively working on placement. 02.05.2025: The patient was seen and evaluated in room 327. Laboratory results show a WBC of 5.2,and a platelet count of 106. The patient was denied for Solara, and case management is actively working on placement. Patient reported of having three episodes of diarrhea yesterday morning but he denied having any episode of loose stool today. 02.06.2025: Patient seen and evaluated in room 327. Vital signs stable with BP 114/56. Laboratory studies show WBC 5.6, hemoglobin stable at 9.9, and platelet count 112. Inflammatory markers improving with CRP down to 32 and procalcitonin trending down to 0.38. Patient is currently on a heart-healthy diet but has requested transition to a regular diet. He also expressed his desire to change code status from DNR/DNI to Full Code. Case management is working on placement at [facility]; however, the process is still pending and will not be completed before Sunday. 02.07.2025: Patient was seen and evaluated in room 327. His vital signs are stable, and he reported no active complaints. Nursing staff also reported no events during the night. He denied any new or ongoing symptoms. Current medications include ampicillin, ceftriaxone, and fluconazole. The patient is pending insurance appeal approval for SOLARA. Laboratory results today show a WB C of 4.4, hemoglobin of 9.9, and platelet count of 120. 02/08/2025 Patient seen and evaluated in room 327. No overnight events and no new complaints. Vitals stable. Labs today WBC 4.6, Hgb 9.1, Plt 121. BMP stable with Na 142, K 3.7, BUN 11, Cr 0.5. CRP trending down 18.2. Patient on ampicillin, ceftriaxone, and fluconazole. Clinical status stable. Solara approval still pending with case management following. 02/09/2025: Patient is seen and evaluated in the room 327. Patient seems completely fine, and waiting for the solar approval. ESR ordered. ID placed case management evaluation because the of the patient requires vigilant physician oversight that can not be provided at the lower level of care requesting the solara to approve the patient. Apart, the patient is reporting only mild pain. Nothing significant lab results REVIEW OF SYSTEMS CONSTITUTIONAL: Denies night sweats. No unintentional weight loss reported. NEUROLOGICAL: Denies headache, amaurosis fugax,sensory deficit, vertigo/spinning sensation, gait abnormalities, or tremors. ENT: No hearing loss, otalgia, otorrhea, rhinitis, rhinorrhea, hoarseness, or sore throat. CARDIOVASCULAR: Denies any exertional angina, dyspnea on exertion, orthopnea, paroxysmal nocturnal dyspnea, palpitations, life-threatening arrhythmias, claudication. PULMONARY: Denies any shortness of breath, cough, phlegm/sputum, hemoptysis, pleuritic chest pain. SLEEP: Denies morning headaches, daytime somnolence or napping. Denies difficulty falling asleep, staying asleep, waking from sleep. Denies knowledge of snoring. GASTROINTESTINAL: Denies any type of dysphagia to either liquids or solids. Denies nausea, vomiting, pyrosis, early satiety, diarrhea or changes in stool consistency or caliber. Denies coffee-ground emesis, hematemesis, hematochezia, or melanotic stools. GENITOURINARY: Denies frequency, urgency, nocturia, hematuria or incontinence ENDOCRINOLOGIC: Denies polyuria, polydipsia, polyphagia or heat/cold intolerances. HEMATOLOGIC: Denies thrombophilia/previous clots, or coagulopathy/bleeding disorders. PSYCHIATRIC: Denies any suicidal or homicidal ideation. Denies hallucinations. PHYSICAL EXAM GENERAL APPEARANCE: The patient is awake, alert, and oriented, in no acute cardiopulmonary distress. NEUROLOGICAL: Motor is 5/5 in bilateral upper and lower extremities proximal to distal. No sensory deficits. HEENT: Face is symmetric. Pupils are equal and reactive. Extraocular movements are intact. NECK: Supple. No thyromegaly. No submental, submandibular, pre-/postauricular, occipital or supraclavicular lymphadenopathy. CHEST: Normal chest expansion. No Telemetry. LUNGS: Absence of any rales, rhonchi or any wheezing. CARDIOVASCULAR: Regular. S1 and S2 normal. No appreciable rubs, murmurs or gallops. ABDOMEN: Soft, nontender, and nondistended. There is no rebound, voluntary guarding, or rigidity. : Deferred. No Mariano. EXTREMITIES: Non-edematous and not cyanotic. No clubbing. Good capillary refill. SKIN: open wound to sacral area Vital Signs (last 8hr) Date Time Temp Pulse Resp B/P (MAP) Pulse Ox O2 Delivery O2 Flow Rate FiO2 02/09/25 15:37 98.4 76 18 122/52 99 Room Air 02/09/25 11:28 97.9 83 18 114/55 100 Room Air LABS: Laboratory: Test 02/09/25 05:59 02/08/25 04:07 Range/Units White Blood Count 5.5 4.8-10.8 K/uL Red Blood Count 3.21 L 4.50-6.20 MIL/uL Hemoglobin 10.4 L 14.0-18.0 g/dL Hematocrit 31.5 L 42-54 % Mean Corpuscular Volume 98.1 79-99 fL Mean Corpuscular Hemoglobin 32.4 27.0-33.0 pg Mean Corpuscular Hemoglobin Concent 33.0 32.0-36.0 g/dL Red Cell Distribution Width 15.6 H 11.0-15.5 % Platelet Count 104 L 130-400 K/uL Mean Platelet Volume 8.3 7.5-10.5 fL Immature Granulocyte % (Auto) 0.4 0-1 % Neutrophils (%) (Auto) 54.2 40.0-77.0 % Lymphocytes (%) (Auto) 38.8 21.0-51.0 % Monocytes (%) (Auto) 5.3 3.0-13.0 % Eosinophils (%) (Auto) 1.1 0.0-8.0 % Basophils (%) (Auto) 0.2 0.0-5.0 % Neutrophils # (Auto) 3.0 1.8-7.7 K/uL Lymphocytes # (Auto) 2.1 1.0-4.8 K/uL Monocytes # (Auto) 0.3 0.1-1.0 K/uL Eosinophils # (Auto) 0.06 0.00-0.70 K/uL Basophils # (Auto) 0.01 0.00-0.20 K/uL Absolute Immature Granulocyte (auto 0.02 0-1 K/uL Nucleated Red Blood Cells 0.0 0.0-0.19 % Erythrocyte Sedimentation Rate 62 H 0-20 MM/HR Sodium Level 140 136-145 mmol/L Potassium Level 4.2 3.5-5.1 mmol/L Chloride Level 107 101-111 mmol/L Carbon Dioxide Level 27 21-32 mmol/L Blood Urea Nitrogen 12 7-18 mg/dL Creatinine 0.7 0.5-1.3 mg/dL Glomerular Filtration Rate Calc 97 >90 mL/min Random Glucose 94 70-105 mg/dL Total Calcium 8.4 L 8.5-10.1 mg/dL C-Reactive Protein, Quantitative 30.50 H 0.5-3.0 mg/L Procalcitonin 0.19 0.05-0.5 ng/mL Current Medications Medications (Trade) Dose Ordered Sig/Panchito Route PRN Reason Start Time Stop Time Status Last Admin Dose Admin Acetaminophen (TYLenol 325MG TAB) 650 mg Q4H PRN PO MILD PAIN (1-3) 01/27/25 20:00 02/26/25 19:59 02/08/25 11:32 650 MG Acetaminophen (TYLenol 325MG TAB) 650 mg Q6H PRN PO TEMPERATURE GREATER THAN 101.5 01/27/25 20:00 02/26/25 19:59 Acetaminophen/ Hydrocodone Bitart (NORco 5/325MG) 1 tab Q6H PRN PO MODERATE PAIN (4-6) 01/27/25 16:00 02/01/25 12:00 DC 01/31/25 20:35 1 TAB Ampicillin Sodium (Ampicillin 2gm+NS 100ml) 2 gm Q6H IV 02/01/25 12:00 02/22/25 11:59 02/09/25 17:09 2 GM Cefepime HCl (MAXipime 2 gm vial) 2 gm Q12H IVPB 01/27/25 21:30 02/01/25 11:42 DC 02/01/25 09:34 2 GM Ceftriaxone Sodium (Rocephin 2gm Inj) 2 gm Q12H IVPB 02/01/25 12:00 02/11/25 11:59 02/09/25 11:31 2 GM Famotidine (Pepcid 20mg Tab) 20 mg DAILY PO 01/28/25 09:00 02/27/25 08:59 02/09/25 08:58 20 MG Fluconazole (DiFLUCan 100 mg TAB) 200 mg DAILY PO 01/31/25 09:00 03/02/25 08:59 02/09/25 08:58 200 MG Heparin Sodium (Porcine) (HEParin 5,000 UNIT VIAL) 5,000 unit Q12H SQ 01/28/25 09:00 02/27/25 08:59 02/09/25 09:05 5,000 UNIT Hydrocortisone Acetate (anuSOL-HC 25MG SUPP) 1 supp BID NH 02/03/25 21:00 03/05/25 20:59 02/08/25 20:17 1 SUPP Lactated Ringer's 1,000 ml @ 75 mls/hr [id number] IV 01/27/25 21:30 02/04/25 06:36 DC 02/04/25 02:06 75 MLS/HR Lactulose (Constulose 20gm/ 30ml Udcup) 20 gm BID PO 02/02/25 09:00 02/05/25 06:22 DC 02/04/25 08:28 20 GM Lactulose (Constulose 20gm/ 30ml Udcup) 20 gm BID PRN PO CONSTIPATION 02/01/25 16:30 02/04/25 06:36 DC 02/01/25 21:31 20 GM Magnesium Sulfate 50 ml @ 0 mls/hr PROTOCOL PRN IV OTHER [SEE ORDER COMMENTS] 01/27/25 20:00 02/26/25 19:59 01/31/25 08:41 25 MLS/HR Metronidazole/ Sodium Chloride (flaGYL) 500 mg Q8H IV 01/27/25 21:30 01/30/25 23:42 DC 01/30/25 22:31 500 MG Morphine Sulfate (morPHINE 2MG SYG) 1 mg Q4H PRN IVP SEVERE PAIN (7-10) 01/27/25 15:30 01/27/25 15:47 DC Norepinephrine 250 ml @ 0 mls/hr PROTOCOL IV 01/27/25 17:00 01/29/25 14:46 DC 01/27/25 17:50 26.25 MLS/HR Nystatin (NystOP 15 GM POWDER) coccyx BID TP 01/30/25 21:00 03/01/25 20:59 02/09/25 08:58 1 APPL Ondansetron HCl (zoFRAN 4MG INJ) 4 mg Q6H PRN IV NAUSEA/VOMITING 01/27/25 20:00 02/26/25 19:59 02/01/25 13:10 4 MG Pharmacy Profile Note (Pharmacy Communication) 1 each AD MISC 01/28/25 10:30 01/28/25 10:21 DC Piperacillin Sod/ Tazobactam Sod 50 ml @ 12.5 mls/hr Q8H IV 01/27/25 22:00 01/27/25 21:32 DC Potassium Chloride 100 ml @ 100 mls/hr AD PRN IV POTASSIUM PROTOCOL 01/27/25 20:00 02/26/25 19:59 Potassium Chloride (K-Dur/Klor-Con 20meq) 20 meq AD PRN PO POTASSIUM PROTOCOL 01/27/25 20:00 02/26/25 19:59 02/07/25 15:41 20 MEQ Potassium Chloride (KCl 10% Elixir 20meq/15ml) 20 meq AD PRN PO POTASSIUM PROTOCOL 01/27/25 20:00 02/26/25 19:59 Sodium Chloride 1,000 ml @ 100 mls/hr Q10H IV 01/27/25 20:00 01/28/25 15:59 DC 01/27/25 20:04 100 MLS/HR Vancomycin HCl 250 ml @ 125 mls/hr BID@0800,2000 IV 01/31/25 08:00 02/01/25 11:42 DC 02/01/25 09:34 125 MLS/HR Vancomycin HCl 250 ml @ 125 mls/hr ONCE IV 01/27/25 20:00 01/27/25 20:09 DC Vancomycin HCl 250 ml @ 125 mls/hr Q24H IV 01/28/25 20:00 01/30/25 23:59 DC 01/30/25 20:34 125 MLS/HR Vancomycin HCl (Vancomycin Protocol) 1 each AD IV 01/27/25 20:30 02/01/25 11:42 DC Wound Care/ Dressing Products (Venelex Ointment) apply to coccyx BID TP 01/28/25 21:00 02/27/25 20:59 02/09/25 08:58 1 GM DIAGNOSTICS / RADIOLOGY: [ ] ASSESSMENT: Septic shock with recent diskitis POA Stage 2 pressure ulcer on coccyx POA Acute kidney injury POA, resolved 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 * SOFA score of 3 on 01/28, lactic acid 3.8, bilirubin 1.4, creatinine 0.7, on norepinephrine 0.04 mcg/kg/min, platelet count of 122. * Lactic acid trend: 3.8> 2.8> 1.2>1.1>1.1 * Discontinued cefepime2 g q.12 and vancomycin, and started the patient on ampicillin 2g IV(day 6), ceftriaxone 2g IV (day 6) fluconazole[day 7] * Infectious diseases on board follow their recommendations. * MR spine revealed Fluid signal intensity at L4-L5 level with subtle erosive changes at the inferior endplate of L4 and superior endplate of the L5 vertebra with bone marrow edema. 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 * Continue to monitor vitals, CRP, CBC * * Patient seems completely fine, and waiting for the solar approval. * ESR ordered. * ID placed case management evaluation because the of the patient requires vigilant physician oversight that can not be provided at the lower level of care requesting the solara to approve the patient. * Patient on IV antibiotics as recommended by ID. 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 * Gram-negative rods identified as pansensitive E coli. * Echocardiography revealed small anterior mitral valve tip vegetation versus myxomatous leaflet * ROBERT done showed no evidence of vegetations or endocarditis and the bubble study was negative * Continue with the current antibiotic regimen. Stage II pressure ulcer on coccyx with granulation and minimal slough with mild periwound erythema and no drainage: * Patient has an open wound to the sacral area. * Wound care consulted, they recommended Venelex b.i.d. and p.r.n.. * Place the patient on a waffle mattress, keep the wounds clean and dry. * Frequent repositioning q.2 hours. * Wound culture positive for Enterococcus faecalis sensitive to ampicillin, gentamicin, penicillin, vancomycin and Jennifer albicans. * Continue current IV antibiotic management. * Continue to serially assess the lesion. DVT prophylaxis with heparin 5000 b.i.d.. GI prophylaxis with Pepcid 20 mg p.o. daily Diet - regular ATTESTATION BY PHYSICIAN I have seen and examined the patient. I reviewed the documentation, medical decision making, and treatment plan as noted by the resident physician above. I agree with the findings and plan of care. DERICK JOHNSON MD, HARSHA MD Feb 09, 2025 17:58
--- NOTE | 2025-02-09 20:54 | PN ---
INFECTIOUS DISEASE PROGRESS NOTE Date of Service: Feb 09, 2025 SUBJECTIVE: Patient remains afebrile, temperature is 97.9. Tolerating diet well and no reports of nausea or vomiting. Continues on ampicillin, ceftriaxone and fluconazole. Continues pending insurance appeal approval to [facility]. PHYSICAL EXAM EYES: Anicteric. Pupils equal and reactive. HENT: No oral thrush seen, moist Oral mucosa. NECK: Supple, no JVD or thyromegaly. LUNGS: Good air entry. No rales, no rhonchi. CARDIOVASCULAR: S1, S2 regular. No murmur heard. ABDOMEN: Soft, non tender, bowel sounds present. CENTRAL NERVOUS SYSTEM: Awake, alert, oriented x 3. SKIN: No rashes, no swelling. LYMPHATICS: No peripheral lymphadenopathy. MUSCULOSKELETAL: No joint swelling, erythema or tenderness. EXTREMITIES: No cyanosis or clubbing. BACK: Stage II coccygeal ulcer. GENITOURINARY: No dysuria or hematuria. Vital Sign (Last 12 Hours) 02/09/25 02/09/25 02/09/25 02/09/25 08:58 11:28 15:37 19:58 Temp 97.9 98.4 98.4 Pulse 83 76 83 Resp 18 18 17 B/P (MAP) 114/55 122/52 126/54 Pulse Ox 100 99 99 O2 Delivery Room Air* Room Air Room Air Room Air O2 Flow Rate 0 FiO2 21 21 Intake & Output (last 24hrs) 02/08/25 02/08/25 02/09/25 15:00 23:00 07:00 Intake Total 60.0 ml 340.0 ml Output Total 700 ml 525 ml Balance -640.0 ml 340.0 ml -525 ml LABS: Laboratory: Test 02/09/25 05:59 02/08/25 04:07 Range/Units White Blood Count 5.5 4.8-10.8 K/uL Red Blood Count 3.21 L 4.50-6.20 MIL/uL Hemoglobin 10.4 L 14.0-18.0 g/dL Hematocrit 31.5 L 42-54 % Mean Corpuscular Volume 98.1 79-99 fL Mean Corpuscular Hemoglobin 32.4 27.0-33.0 pg Mean Corpuscular Hemoglobin Concent 33.0 32.0-36.0 g/dL Red Cell Distribution Width 15.6 H 11.0-15.5 % Platelet Count 104 L 130-400 K/uL Mean Platelet Volume 8.3 7.5-10.5 fL Immature Granulocyte % (Auto) 0.4 0-1 % Neutrophils (%) (Auto) 54.2 40.0-77.0 % Lymphocytes (%) (Auto) 38.8 21.0-51.0 % Monocytes (%) (Auto) 5.3 3.0-13.0 % Eosinophils (%) (Auto) 1.1 0.0-8.0 % Basophils (%) (Auto) 0.2 0.0-5.0 % Neutrophils # (Auto) 3.0 1.8-7.7 K/uL Lymphocytes # (Auto) 2.1 1.0-4.8 K/uL Monocytes # (Auto) 0.3 0.1-1.0 K/uL Eosinophils # (Auto) 0.06 0.00-0.70 K/uL Basophils # (Auto) 0.01 0.00-0.20 K/uL Absolute Immature Granulocyte (auto 0.02 0-1 K/uL Nucleated Red Blood Cells 0.0 0.0-0.19 % Erythrocyte Sedimentation Rate 62 H 0-20 MM/HR Sodium Level 140 136-145 mmol/L Potassium Level 4.2 3.5-5.1 mmol/L Chloride Level 107 101-111 mmol/L Carbon Dioxide Level 27 21-32 mmol/L Blood Urea Nitrogen 12 7-18 mg/dL Creatinine 0.7 0.5-1.3 mg/dL Glomerular Filtration Rate Calc 97 >90 mL/min Random Glucose 94 70-105 mg/dL Total Calcium 8.4 L 8.5-10.1 mg/dL C-Reactive Protein, Quantitative 30.50 H 0.5-3.0 mg/L Procalcitonin 0.19 0.05-0.5 ng/mL ASSESSMENT: E coli bacteremia. Lumbar spine osteomyelitis. Mitral valve vegetation, ruled out. Sepsis. Stage II coccygeal ulcer with Jennifer albicans infection. Urinary tract infection. Leukocytosis, resolved. Diabetes mellitus. PLAN: Continue ceftriaxone. Continue fluconazole. Continue ampicillin. Continue cefepime IV. Continue GI prophylaxis. Continue pain management. Continue wound care. Continue antidiabetics. Patient will need 5 weeks of antibiotics. Pending insurance appeal approval to [facility]. This case was reviewed and discussed with my supervising physician Dr. Gandhi and the above assessment and plan was formulated and agreed upon. ATTESTATION BY PHYSICIAN I have seen and examined the patient. I reviewed the documentation, medical decision making, and treatment plan as noted by the mid-level provider above. I agree with the findings and plan of care. MAURICIO GANDHI MD, [facility] Feb 09, 2025 20:54
[2025-02-10 04:00] VITALS: BP 113/60; PULSE 72; RESP 17; TEMP 97.6
[2025-02-10 05:59] LABS: IMMATURE GRANULOCYTE ABSOLUTE 0.01 K/uL (0-1); NUCLEATED RED BLOOD CELLS 0.0 % (0.0-0.19); PLATELET COUNT (AUTO) 107 K/uL (130-400); RED BLOOD CELL COUNT(AUTO) 3.05 MIL/uL (4.50-6.20); RED CELL DISTRIBUTION WIDTH 15.4 % (11.0-15.5); WHITE BLOOD COUNT (AUTO) 4.2 K/uL (4.8-10.8)
[2025-02-10 06:12] LABS: CREATININE 0.5 mg/dL (0.5-1.3); GLOMERULAR FILTR. RATE CALC 108.0 mL/min (>90); GLUCOSE,RANDOM 107.0 mg/dL (70-105); SODIUM SERUM 142.0 mmol/L (136-145); UREA NITROGEN, BLOOD 13.0 mg/dL (7-18)
[2025-02-10 08:00] VITALS: BP 129/62; PULSE 72; RESP 18; TEMP 98.3
[2025-02-10 12:00] VITALS: BP 99/52; PULSE 107; RESP 18; TEMP 99.8
[2025-02-10 16:00] VITALS: BP 103/53; PULSE 86; RESP 18; TEMP 98.6
--- NOTE | 2025-02-10 16:35 | NUR ---
REPORT ATTEMPT TO GIVE [facility]. NURSE LADARIUS WILL CALL BACK. REPORT PENDING.
--- NOTE | 2025-02-10 17:46 | NUR ---
REPORT REPORT GIVEN TO GAMAL DURAND AT [facility]. [phone]. ANSWERED ALL QUESTIONS.
--- NOTE | 2025-02-10 17:49 | NUR ---
[facility] NOTIFIED OF TRANSPORT TO [facility] AT THIS TIME. SPOKE TO KIRK.
--- NOTE | 2025-02-10 17:55 | NUR ---
DISCHARGE GIRLFRIEND AT BEDSIDE. PT A&OX3. PICC LINE DRESSING DRY AND INTACT. PT AWARE HE IS GOING TO [facility]. PT AWARE TO FOLLOW UP WITH PCP AND PAPER DELIVERER AFTER DISCHARGE FROM [facility]. ANSWERED ALL QUESTIONS. WAITING ON EMS.
--- NOTE | 2025-02-10 19:35 | DS ---
Discharge Summary Hospital Course Summary: 74-year-old male with a history of htn, diabetes, hyperlipidemia, obesity and prior right better hemicolectomy was admitted on 01/28/2025 with septic shock, fever and weakness of the recent E coli bacteremia and diskitis. 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 He also developed SHAHRIAR which has been improved and fecal impaction which has been managed conservatively. Blood cultures grew E coli and Gram-positive cocci. Wound cultures positive for Jennifer. He is currently stable, alert, off vasopressors, and remains on IV antibiotics and antifungal therapy. Discharge plan is to transfer to LTAC for continued IV antibiotics and wound care. Patient has been approved for that. Patient is discharging in a stable condition. Net Washer(s): Dialysis care Attend all schedules as outpatient Use only the AV fistula for dialysis once cleared by Nephrology Infection monitoring Complete the full course of antibiotics use the daptomycin Watch for signs of infection [facility] CONSULTATION NOTE Date Patient Seen: Jan 27, 2025 Time of Visit: 20:30 Supervising Physician: [Dr. Kamryn Ponce ] Reason for Consultation: [ICU management ] Primary Care Physician: [ Dr. Edgar Villela] Outpatient Specialists: [ ] Inpatient Consults: [BIS team-Dr. Francisca PENG: ID] PROBLEM LIST: Septic shock requiring pressor support 2/2 discitis/osteomyelitis of L4-L5-POA Stage II pressure injury on sacral area-POA Mild hyponatremia-POA Hyperlactatemia-POA L4-L5 discitis with left psoas myositis on Daptomycin therapy-POA (+) murmurs on 4th-5th left ICS-POA Liver cirrhosis Paroxysmal Afib- completed Eliquis treatment HX of enterococcus UTI Anemia of chronic disease Prediabetes Primary HTN HLD HX of right colectomy and polyp removal PLAN: -Continue critical care management -Wean off Levophed to keep MAP >65 -Continue IV Vanco, will add Cefepime and Flagyl -Order lumbar MRI -Consult Dr. Espinosa as the patient is taking home IV antibiotic of Daptomycin as part of discharge meds for L4-L5 osteomyelitis -Multimodal pain management -Apply allevyn foam on pressure injury on sacral area, q2H turning and repositioning -12/2024: 2decho showed no hemodynamically significant valvular abnormalities. -The rest of medical management per primary team HPI: [Per hospitalist SENIOR DATA ARCHITECT's notes: "This is a 74-year-old male past medical history of hypertension, diabetes, hyperlipidemia ,UTI due to Ecoli and obesity with past surgical history of right colectomy and polyps removal who was brought by EMS to the ED for complaints of fever and generalized body weakness.Patient was recently admitted in this facility for septic shock and was treated with ABT for E coli and was receiving IV ABT as outpatient managed by as per patient .Patient reports he was also recently admitted in [place] and was diagnosed with Diskitis and was discharged yesterday and came back here.Today he started having fever so he decided to come to the ED for evaluation.Upon ER arrival patient V/S was T99.5,HR 119,BP 70/42 and Sat 96% RA." BIS team was consulted for critical care management 2/2 septic shock requiring pressor support. On my assessment, patient is resting comfortably on bed without s/sx of distress. He denies pain. He appears jaundiced with icteric sclera. Sacral area has stage II pressure injury. He claims he was supposed to start on receiving Daptomycin IV as part of his discitis. He was diagnosed with L4-L5 osteomyelitis in [facility] but without abscess. He claims that the spinal fluid sent for microbiology was negative for bacterial growth. Vertebral palpation was negative for tenderness, negative for erythema or signs of cellulitis. His blood pressure is responding favorably from Levophed with MAP >65 at this time. No signs of hemodynamic instability. We will continue to follow along patient's response to treatment. On behalf of BIS team, thank you for the opportunity to participate on Mr. Oreilly's care.] PAST MEDICAL HX: see above PAST SURGICAL HX: noncontributory SOCIAL HISTORY: No tobacco, ETOH, or illicit drug use Coded Allergies: No Known Allergies (Unverified Allergy, Unknown, 12/04/24) REVIEW OF SYSTEMS: 12 point ROS reviewed with patient. Pertinent positives mentioned above. Otherwise negative. PHYSICAL EXAM: GENERAL: alert, awake oriented x 3 HEENT: EOMI, Sclera icteric, moist mucosa NECK: Supple, no JVD, trachea midline LUNGS: Clear breath sounds bilaterally. No wheezes HEART: Regular rate and rhythm. Normal S1 and S2, (+) murmurs on 4th-5th left ICS ABD: Abdomen soft, nontender. Bowel sounds present EXT: No clubbing cyanosis or edema; no tenderness on vertebrae SKIN: Jaundiced, stage II pressure injury on sacrum NEURO: Alert and oriented to person, follows commands Vital Signs (last 8hr) Date Time Temp Pulse Resp B/P (MAP) Pulse Ox O2 Delivery O2 Flow Rate FiO2 01/27/25 19:34 76 18 96/57 96 Room Air* 0 21 01/27/25 18:33 70 16 130/63 99 Room Air* 0 21 01/27/25 17:30 80 19 76/31 99 Room Air* 0 21 01/27/25 16:30 83 18 80/40 98 Room Air* 0 21 01/27/25 15:30 88 18 83/37 97 Room Air* 0 21 01/27/25 14:09 99.5 119 20 70/42 96 Room Air 0 LABS: Hematology Labs: Test 01/27/25 14:20 Range/Units White Blood Count 13.2 H 4.8-10.8 K/uL Red Blood Count 3.16 L 4.50-6.20 MIL/uL Hemoglobin 10.0 L 14.0-18.0 g/dL Hematocrit 29.4 L 42-54 % Mean Corpuscular Volume 93.0 79-99 fL Mean Corpuscular Hemoglobin 31.6 27.0-33.0 pg Mean Corpuscular Hemoglobin Concent 34.0 32.0-36.0 g/dL Red Cell Distribution Width 14.6 11.0-15.5 % Platelet Count 122 L 130-400 K/uL Mean Platelet Volume 8.9 7.5-10.5 fL Immature Granulocyte % (Auto) 0.5 0-1 % Neutrophils (%) (Auto) 89.3 H 40.0-77.0 % Lymphocytes (%) (Auto) 5.7 L 21.0-51.0 % Monocytes (%) (Auto) 4.2 3.0-13.0 % Eosinophils (%) (Auto) 0.1 0.0-8.0 % Basophils (%) (Auto) 0.2 0.0-5.0 % Neutrophils # (Auto) 11.8 H 1.8-7.7 K/uL Lymphocytes # (Auto) 0.8 L 1.0-4.8 K/uL Monocytes # (Auto) 0.6 0.1-1.0 K/uL Eosinophils # (Auto) 0.01 0.00-0.70 K/uL Basophils # (Auto) 0.02 0.00-0.20 K/uL Absolute Immature Granulocyte (auto 0.06 0-1 K/uL Nucleated Red Blood Cells 0.0 0.0-0.19 % White Cell Morphology Comment See comments Chemistry Labs: Test 01/27/25 17:56 01/27/25 14:20 Range/Units Lactic Acid Level 2.8 H 0.8-2.5 mmol/L Sodium Level 132 L 136-145 mmol/L Potassium Level 3.5 3.5-5.1 mmol/L Chloride Level 100 L 101-111 mmol/L Carbon Dioxide Level 21 21-32 mmol/L Blood Urea Nitrogen 34 H 7-18 mg/dL Creatinine 1.1 0.5-1.3 mg/dL Glomerular Filtration Rate Calc 71 >90 mL/min Random Glucose 107 H 70-105 mg/dL Total Calcium 8.5 8.5-10.1 mg/dL Total Creatine Kinase 35 # 21-232 U/L Troponin I High Sensitivity 41 4-75 ng/L DIAGNOSTICS / RADIOLOGY RESULTS: [ ] PLAN NEURO: Minimize central acting medications as possible. Fall Precautions. Well lighted room through the day and minimize interruptions through the night to prevent acute delirium. PULMONARY: Supplemental 02 as needed Titrate Fio2 to keep Spo2 > or = 90% DuoNebs and CPT as needed IS hourly while awake for pulmonary hygiene Out of bed to chair as tolerated VAP Bundle Vent/BIPAP Settings: [ ] Driving pressure: [ ] P Plat: [ ] Static C: [ ] Static R: [ ] P/F Ratio: [ ] CARDIOVASCULAR: Follow hemodynamics. Titrate vasopressor to keep MAP >65 or systolic blood pressure >95mmHg DRIPS: [Levophed ] LINES: [Left arm PICC ] GI & NUTRITION: Continue nutritional support Aspirations precautions Prokinetic agents and laxatives as needed KIDNEYS & ELECTROLYTES: Strict monitoring of intake and output Daily weights Avoid nephrotoxic agents Monitor electrolytes and replace as needed Goal urine output of 30mL/hr or 0.5mL/kg/hr Urine output: [ ] Fluid Balance: [ ] ENDOCRINE: Maintain blood glucose between 100-180 at all times. Insulin sliding scale for blood glucose management INFECTIOUS DISEASE: Trend temperature. Galvan-culture if febrile. Micro: [ ] Antibiotics: [IV Vancomycin: 01/26/25- IV Cefepime: 01/26/25- IV Flagyl: 01/26/25] HEMATOLOGY & COAGULATION: Monitor H&H. Keep Hgb > 7 Transfuse 1 unit of PRBC for Hgb < 7 Transfuse 1 pack of platelets of platelets < 20, 000 Watch for any signs and symptoms of bleeding SKIN: Pressure ulcer prevention per facility protocol Rehab: PT/OT Prophylaxis: GI: [Pepcid] DVT: [Heparin ] Code Status: Full Resuscitation Disposition: [ICU ] Other: Total patient care time: 45 minutes SOFIA RAUSCH Jan 27, 2025 20:23 Electronically Signed by: SOFIA FOFANA03/30/24 0544 Electronically Co-Signed by: KAMRYN PONCE MD01/28/25 1320 ONSULTATION NOTE Date of Service: Jan 28, 2025 Reason for Consultation: [ pressure ulcer to coccyx ] Requesting Physician: [ Iris ] HISTORY OF PRESENT ILLNESS: Patient is evaluated at bedside in room 207 for initial wound care evaluation. The patient is a 74-year-old male past medical history of hypertension, diabetes, hyperlipidemia ,UTI due to Ecoli and obesity with past surgical history of right colectomy and polyps removal who was brought by EMS to the ED for complaints of fever and generalized body weakness.Patient was recently admitted in this facility for septic shock and was treated with ABT for E coli and was receiving IV ABT as outpatient managed by as per patient .Patient reports he was also recently admitted in [place] and was diagnosed with Diskitis and was discharged yesterday and came back here.Today he started having fever so he decided to come to the ED for evaluation.Upon ER arrival patient V/S was T99.5,HR 119,BP 70/42 and Sat 96% RA. Patient has an open wound to sacral area,and patient reports he has been having it since he was discharge home.Patient is also on Levophed drip.Patient denies,nausea,vomiting,chest pain,palpitation,cough and shortness of breath. Latest vital signs heart rate 67, blood pressure 90/50 saturation 99% on room air. Labs: WBC 13 with negativ e left shift of neutrophils 89, hemoglobin 10, hematocrit 29, platelet count 122. Sodium 132, chloride 100, BUN 34, lactic acid 3.8-2.8 troponin 41. Urinalysis significant for urine bilirubin small, urine urobilinogen two, small esterase, urine WBC 6-10. While in the ER patient received vancomycin 1 g IV, Zosyn 3.375 IV, Tylenol 1000 mg p.o. and fluid resuscitation of NS 30 mL/k ilogram over 3 hours and morphine 1 mg IV. The patient was admitted for further medical management. REVIEW OF SYSTEMS CONSTITUTIONAL: Denies fever, chills, or fatigue. HEAD/FACE: No signs of trauma. EENT: Denies eye pain, blurred vision, double vision, or light sensitivity. RESPIRATORY: Denies shortness of breath, cough, wheezing CARDIOVASCULAR: Denies chest pain, palpitation, syncope GASTROINTESTINAL/ABDOMINAL: Denies abdominal pain, constipation, diarrhea, nausea or vomiting GENITOURINARY: Denies dysuria or hematuria. MUSCULOSKELETAL: Denies joint pain, tenderness, or trauma. INTEGUMENTARY: Denies rash or itchiness NEUROLOGICAL/PSYCH: Denies anxiety, depression, heat or cold intolerance. PAST MEDICAL HISTORY: [ hypertension, diabetes, hyperlipidemia ,UTI due to Ecoli and obesity ] PAST SURGICAL HISTORY: [ right colectomy and polyps removal PAST SOCIAL HISTORY: [ Patient lives with significant other. Patient denies alcohol tobacco and recreational drug use ] FAMILY HISTORY: [Mother and father - diabetes ] Coded Allergies: No Known Allergies (Unverified Allergy, Unknown, 12/04/24) PHYSICAL EXAM EYES: Anicteric. Pupils equal and reactive. HENT: No oral thrush seen, moist Oral mucosa NECK: Supple, no JVD or thyromegaly. LUNGS: Good air entry. No rales, no rhonchi. CARDIOVASCULAR: S1, S2 regular. No murmur heard. ABDOMEN: Soft, non tender, bowel sounds present, no organomegaly CENTRAL NERVOUS SYSTEM: Awake, alert, oriented x 3. No focal deficits. SKIN: Stage 2 pressure noted to coccyx with granulation and minimal slough with mild periwound erythema with no drainage noted. LYMPHATICS: No peripheral lymphadenopathy MUSCULOSKELETAL: No joint swelling, erythema or tenderness. EXTREMITIES: No cyanosis or clubbing BACK: No deformity GENITOURINARY: No dysuria or hematuria Vital Sign (Last 24 Hours) 01/28/25 01/28/25 01/28/25 04:00 06:08 06:15 Pulse 69 Resp 13 B/P (MAP) 105/65 (78) Pulse Ox 99 O2 Delivery Room Air* O2 Flow Rate 0 FiO2 21 Intake & Output (last 24hrs) 01/27/25 01/27/25 01/28/25 15:00 23:00 07:00 Intake Total 2532.8 ml 911.8 ml Output Total 200 ml 700 ml Balance 2332.8 ml 211.8 ml LABS: Laboratory: Test 01/28/25 04:27 01/27/25 18:35 01/27/25 17:56 01/27/25 14:20 Range/Units White Blood Count 14.3 H 4.8-10.8 K/uL Red Blood Count 2.89 L 4.50-6.20 MIL/uL Hemoglobin 9.5 L 14.0-18.0 g/dL Hematocrit 26.7 L 42-54 % Mean Corpuscular Volume 92.4 79-99 fL Mean Corpuscular Hemoglobin 32.9 27.0-33.0 pg Mean Corpuscular Hemoglobin Concent 35.6 32.0-36.0 g/dL Red Cell Distribution Width 14.8 11.0-15.5 % Platelet Count 110 L 130-400 K/uL Mean Platelet Volume 8.9 7.5-10.5 fL Immature Granulocyte % (Auto) 0.4 0-1 % Neutrophils (%) (Auto) 76.9 40.0-77.0 % Lymphocytes (%) (Auto) 17.2 L 21.0-51.0 % Monocytes (%) (Auto) 5.1 3.0-13.0 % Eosinophils (%) (Auto) 0.3 0.0-8.0 % Basophils (%) (Auto) 0.1 0.0-5.0 % Neutrophils # (Auto) 11.0 H 1.8-7.7 K/uL Lymphocytes # (Auto) 2.5 1.0-4.8 K/uL Monocytes # (Auto) 0.7 0.1-1.0 K/uL Eosinophils # (Auto) 0.04 0.00-0.70 K/uL Basophils # (Auto) 0.02 0.00-0.20 K/uL Absolute Immature Granulocyte (auto 0.06 0-1 K/uL Nucleated Red Blood Cells 0.0 0.0-0.19 % Erythrocyte Sedimentation Rate 36 H 0-20 MM/HR Sodium Level 138 136-145 mmol/L Potassium Level 3.8 3.5-5.1 mmol/L Chloride Level 109 101-111 mmol/L Carbon Dioxide Level 24 21-32 mmol/L Blood Urea Nitrogen 20 H 7-18 mg/dL Creatinine 0.7 0.5-1.3 mg/dL Glomerular Filtration Rate Calc 97 >90 mL/min Random Glucose 107 H 70-105 mg/dL Lactic Acid Level 1.2 0.8-2.5 mmol/L Total Calcium 8.1 L 8.5-10.1 mg/dL Magnesium Level 1.90 1.80-2.40 mg/dL Total Bilirubin 1.3 H 0.2-1.0 mg/dL Aspartate Amino Transf (AST/SGOT) 99 H 10-37 U/L Alanine Aminotransferase (ALT/SGPT) 95 H 12-78 U/L Alkaline Phosphatase 290 H 50-136 U/L Total Protein 6.2 6.0-8.3 g/dL Albumin 1.6 L 3.5-5.0 g/dL Procalcitonin 16.94 H 0.05-0.5 ng/mL Urine Color YELLOW YELLOW Urine Appearance CLEAR CLEAR Urine pH 6.0 5.0-8.0 Urine Specific Luther 1.010 1.001-1.031 Urine Protein NEGATIVE NEGATIVE mg/dL Urine Glucose (UA) NEGATIVE NEGATIVE mg/dL Urine Ketones NEGATIVE NEGATIVE mg/dL Urine Occult Blood NEGATIVE NEGATIVE Urine Nitrate NEGATIVE NEGATIVE Urine Bilirubin SMALL H NEGATIVE mg/dL Urine Urobilinogen 2.0 H 0.2-1.0 mg/dL Urine Leukocyte Esterase SMALL H NEGATIVE Karon/uL Urine RBC 0-1 0-1 /HPF Urine WBC 6-10 H 0-1 /HPF Urine Squamous Epithelial Cells Few 0-2 /HPF Urine Bacteria Rare None Seen /HPF Direct Bilirubin 0.9 H 0.0-0.3 mg/dL White Cell Morphology Comment See comments Total Creatine Kinase 35 # 21-232 U/L Troponin I High Sensitivity 41 4-75 ng/L DIAGNOSTICS / RADIOLOGY: [ ] PROBLEM LIST : Medical Problems: (1) Lactic acidosis ICD Codes: E87.20 - Acidosis, unspecified (2) Sepsis ICD Codes: A41.9 - Sepsis, unspecified organism (3) Septic shock ICD Codes: A41.9 - Sepsis, unspecified organism; R65.21 - Severe sepsis with septic shock (4) Pressure ulcer of sacral region, stage 2 ICD codes: L89.152 PLAN: Wound culture collected to coccyx wound Wound care to coccyx wound- apply Venelex BID and PRN Waffle mattress Keep wounds clean and dry Offloading/reposition q 2 hours Continue IV antibiotics per ID Comorbidities per primary care team Further Management per hospital course. Thank You for the consult and allowing us to participate in the care of this patient. ATTESTATION BY PHYSICIAN I have seen and examined the patient. I reviewed the documentation, medical decision making, and treatment plan as noted by the mid-level provider above. I agree with the findings and plan of care. SUSAN MARTELL MD, [facility] Jan 28, 2025 15:44 Electronically Signed by: ROLLY MCCURDY [facility]03/30/24 1546 Electronically Co-Signed by: [place] [id number] [address] INFECTIOUS DISEASE CONSULTATION DATE OF SERVICE: 01/28/2025. REQUESTING PHYSICIAN: Rossy Marley NP REASON FOR CONSULTATION: Gram positive bacteremia, sepsis. HISTORY OF PRESENT ILLNESS: A 74-year-old male with a history of hypertension and diabetes mellitus presented to the hospital with fever, general body weakness, and low blood pressure. The patient's symptoms started 1 day prior to presentation. The patient was admitted with septic shock. Blood culture on admission came back positive for gram-positive cocci in chains. The patient returned from [place] about 2 days ago. The patient was in [place] to be evaluated for chronic back pain. MRI was done, which showed lumbar spine diskitis and osteomyelitis. The patient claimed lumbar puncture was done, which I doubt. Probably IR biopsy was done. Blood culture drawn over there grew Enterococcus species. The patient was sent home on daptomycin. Unknown if 2D echocardiogram was done prior. Was evaluated by Neurosurgery while in [place] who advised antibiotic management. 2D echocardiogram has been ordered today and it is pending to be read. PAST MEDICAL HISTORY: * Hypertension. * Diabetes mellitus. * Dyslipidemia. * UTI. * Cholecystitis. * E. coli bacteremia and sepsis. PAST SURGICAL HISTORY: * Colonoscopy. * Right hemicolectomy. ALLERGIES: No known drug allergies. CURRENT MEDICATIONS: Reviewed. SOCIAL HISTORY: No alcohol or tobacco or drug use. FAMILY HISTORY: Positive for diabetes mellitus. REVIEW OF SYSTEMS: CONSTITUTIONAL: Positive for fever and chills. No weight loss. No night sweats. EYES: No eye pain. No photophobia or diplopia. HENT: No sore throat. No rhinorrhea or earache. NECK: No neck pain or neck swelling. RESPIRATORY: No cough. No hemoptysis or pleuritic pain. CARDIOVASCULAR: No chest pain. No palpitation or orthopnea. GASTROINTESTINAL: Denies nausea, vomiting, or abdominal pain. GENITOURINARY: No dysuria. No urinary frequency. CENTRAL NERVOUS SYSTEM: No headache, dyspnea, or slurred speech. PSYCHIATRY: No depression, no suicidal ideation. MUSCULOSKELETAL: No joint pain. No joint swelling. PHYSICAL EXAMINATION: GENERAL: Elderly male, awake. Not in distress. VITAL SIGNS: Temperature 97.9, pulse 69, respirations 13, BP 105/65. EYES: No icterus. Pupils equal and reactive. HENT: No oral thrush seen. Moist oral mucosa. NECK: Supple. No JVD or thyromegaly. LUNGS: Good air entry. No rales, no rhonchi. CARDIOVASCULAR: S1 and S2. Regular. No murmur heard. ABDOMEN: Soft, nontender. Bowel sounds are present. CENTRAL NERVOUS SYSTEM: Awake, alert, oriented x 3. No focal deficits. SKIN: No rashes. LYMPHATIC: No peripheral lymphadenopathy. BACK: No deformities. ____. MUSCULOSKELETAL: No joint swelling or tenderness. LABORATORY DATA: Alkaline phosphatase 290, AST 99, ALT 95, procalcitonin is 16.94, sodium 130, potassium 3.8, BUN 22, creatinine 0.7, WBC 10.2, hemoglobin 9.5, platelets 110. RADIOLOGY: Blood cultures growing Gram positive cocci in chains. 2D echocardiogram pending. ASSESSMENT: A 74-year-old male who presented with fever. * Enterococcus bacteremia and sepsis. * Lumbar spine diskectomy and osteomyelitis. * Stage 2 sacral coccygeal ulcer. * Diabetes mellitus. * Anemia. * ____, obtained. PLAN: * Follow up 2D echocardiogram results. * Continue critical care support. * Continue vasopressor. * Continue anti-diuretics. * Follow-up culture. * Monitor electrolytes. * Continue pain management. * Continue DVT prophylaxis. * Remove PICC line. * The patient may require TONI if the 2D echocardiogram is unremarkable. Thank you for allowing me to participate in the care of this patient. TID: [id number] RECEIPT: [id number] Electronically Signed by: MAURICIO ESPINOSA MD02/01/25 1706 Electronically Co-Signed by: Procedure(s): [place] [id number] [address] IMAGING REPORT Signed PATIENT: OSITO OREILLY MR#: [id number] : 1950 SEX: M AGE: 74 LOCATION: [facility] ORDER 4 STATUS: ADM IN REPORT#: [id number] SERVICE [id number] REASON: bacteremia with gram positive cocci r/o endocarditis ORDERING PHYSICIAN: LILIA CHIU MD PROCEDURE: ECHO FU LD - ECHO 2-D F/U-LTD APPROVED REPORT EXAM: Limited Two-dimensional echocardiogram with color Doppler. Study Details: Previous echocardiogram: 12/04/2024 INDICATION ICD: Bacteremia with gram positive cocci r/o endocarditis 2D Dimensions LVED Vol(simp.) 87.0 mL LVES Vol(simp.) 33.0 mL LVEF(%, simp.) 62 % Deformation Strain Apical 4 -17.8 % Apical 2 -17.8 % Apical 3 -15.8 % Global Strain -17.1 % Left Ventricle Left ventricular cavity size is normal. GLS -17.0% There is normal LV segmental wall motion. There is normal left ventricular wall thickness. LVEF is 60-65%. Indeterminate diastolic dysfunction. Right Ventricle The right ventricle is normal size. The right ventricular systolic function is normal. Atria The left atrium is moderately dilated. The right atrium is mildly dilated. Aortic Valve Aortic valve is trileaflet, thickened milldy calcified and opens well. No obvious vegetations noted with leaflet thickening and calcification noted. Toni recommended if clinically indicated Mitral Valve Mitral valve leaflets open well. Small anterior mitral valve tip vegetation noted vs myxomatous leaflet. Tricuspid Valve The tricuspid valve appears normal. There is no tricuspid valve vegetation. Pulmonic Valve The pulmonary valve appears normal. There is no pulmonic valve vegetaion. Pericardium No pericardial effusion. Other Information Quality : Limited/Follow-up Conclusion LVEF is 60-65%. GLS -17.0% There is normal LV segmental wall motion. Small anterior mitral valve tip vegetation noted vs myxomatous leaflet. No obvious vegetations noted with leaflet thickening and calcification noted. Toni recommended if clinically indicated DICTATED BY: FATOU BUENO MD DATE: 01/28/25 1018 ELECTRONICALLY SIGNED BY: FATOU BUENO MD DATE: 01/28/[address] [address] IMAGING REPORT Signed PATIENT: OSITO OREILLY MR#: [id number] : 1950 SEX: M AGE: 74 LOCATION: 2D ORDER 56 STATUS: ADM IN REPORT#: [id number] SERVICE 55 REASON: HIGH LFTs ORDERING PHYSICIAN: JOSEPHINE AMEZCUA MD PROCEDURE: ABDOMEN - US ABDOMINAL COMPLETE ULTRASOUND OF THE ABDOMEN Clinical Details: Elevated liver function tests. Examination performed for further evaluation and follow-up. Technique: Ultrasound of the abdomen was performed using grayscale and color Doppler evaluation. Comparison: Prior MRCP dated 04 December 2024, which demonstrated cholelithiasis without cholecystitis and no biliary obstruction, liver cirrhosis with mild hepatic steatosis, mild splenomegaly, and a 0.6 cm left renal cortical cyst.Findings: Liver: The liver measures 14.2 cm and demonstrates coarse echotexture, compatible with chronic parenchymal liver disease. No focal hepatic lesion is seen. The portal vein is patent and demonstrates hepatopetal flow with a peak systolic velocity of 22 cm/sec. Gallbladder and Biliary System: Numerous calculi are present within the gallbladder lumen. Sonographic Bee???s sign is negative. The gallbladder wall measures 2 mm. The common bile duct measures 3 mm in diameter. No intrahepatic biliary dilatation is observed. Pancreas: The head and body of the pancreas appear unremarkable. The pancreatic tail is only partially visualized due to overlying bowel gas. Kidneys: The right kidney measures 10.3 ??? 5.7 ??? 5.3 cm and the left kidney measures 10.6 ??? 5.7 ??? 5.9 cm. Renal cortical echogenicity and corticomedullary differ entiation are preserved. The previously described 0.6 cm left renal cortical cyst is not well visualized on the current exam. Spleen: The spleen is enlarged, measuring 16.4 cm. Vessels: The inferior vena cava is patent. The proximal abdominal aorta is obscured by bowel gas. The mid aorta measures 1.6 cm and the distal aorta measures 1.5 cm in diameter.Impression: * Coarse hepatic echotexture, consistent with chronic liver parenchymal disease. * Cholelithiasis without sonographic evidence of acute cholecystitis. * Normal common bile duct caliber with no evidence of biliary obstruction. No choledocholithiasis. * Splenomegaly measuring 16.4 cm. * In comparison with the prior MRCP dated december 04, 2024, overall stable appearance. /[place] DICTATED BY: KEDAR DAMON MD DATE: 01/29/252330 ELECTRONICALLY SIGNED BY: KEDAR DAMON MD DATE: 01/29/252330 [place] [address] IMAGING REPORT Signed PATIENT: OSITO OREILLY MR#: [id number] : 1950 SEX: M AGE: 74 LOCATION: 2DH ORDER 99 STATUS: ADM IN REPORT#: [id number] SERVICE 0600 REASON: CHF ORDERING PHYSICIAN: JOSEPHINE AMEZCUA MD PROCEDURE: CXR1VW - CHEST 1VW EXAM: CR Chest, 1 View. CLINICAL HISTORY: CHF COMPARISON: 12/04/2024 FINDINGS: LUNGS: There is no mass, infiltrate, or acute pulmonary abnormality. PLEURAL SPACES: No evidence of pleural effusion or pneumothorax. The right CP angle is partially excluded from the [id number]. MEDIASTINUM: Cardiac size and mediastinal contours within normal limits. BONES: No aggressive appearing osseous lesion seen. IMPRESSION: No acute cardiopulmonary findings. /[place] DICTATED BY: JANKI BELLE Jr., MD DATE: 01/29/252128 ELECTRONICALLY SIGNED BY: JANKI BELLE Jr., MD DATE: 01/29/252128 [place] [address] [id number] IMAGING REPORT Signed PATIENT: OSITO OREILLY MR#: [id number] : 1950 SEX: M AGE: 74 LOCATION: [facility] ORDER 230 STATUS: ADM IN REPORT#: [id number] SERVICE 0600 REASON: L4-L5 OSTEOMYELITIS ORDERING PHYSICIAN: SOFIA RAUSCH PROCEDURE: L SPN WWO - MR SPINAL CANAL, LUMB W/WO CON EXAM: MR Lumbar Spine Without Intravenous Contrast. CLINICAL HISTORY: L4-L5 osteomyelitis. TECHNIQUE: Magnetic resonance images of the lumbar spine in multiple planes. CONTRAST: 15mL Clariscan COMPARISON: None. FINDINGS: For this examination, spinal levels were labeled assuming five non-rib bearing, lumbar-type vertebrae with the inferior labeled L5. No acute fracture. Loss of lumbar lordosis. Normal vertebral body height. Mild disc desiccation and disc bulges at L3-L4 and L5-S1 level. Fluid signal intensity at L4-L5 level with subtle erosive changes at the inferior endplate of L4 and superior endplate of the L5 vertebra with bone marrow edema. Consistent with changes of discitis. Conus medullaris terminates at the T12-L1 level. No abnormal epidural masses. The surrounding soft tissues are unremarkable. Individual spinal levels are described as follows: T12-L1: No disc bulge or herniation. No neural foraminal, lateral recess or spinal canal stenosis. L1-L2: No disc bulge or herniation. No neural foraminal, lateral recess or spinal canal stenosis. L2-L3: No disc bulge or herniation. No neural foraminal, lateral recess or spinal canal stenosis. L3-L4: Disc desiccation with severe bilateral facet arthropathy and ligamentum flavum hypertrophy. Moderate narrowing of the right neural foramina and mild narrowing of the left neural foramina. Left paracentral annular tear. Mild ligamentum flavum hypertrophy. No significant lateral recess or spinal canal stenosis. L4-L5: Degenerative reduction in disc space with fluid signal intensity at the L4-L5 intervertebral disc with subtle erosive changes involving the inferior endplate of the L4 and superior endplate of the L5 vertebra. Bone marrow edema in the L4 and L5 vertebra. Consistent with changes of discitis. Minimal inflammatory collection in the prevertebral region and inflammatory phlegmon in the bilateral psoas major muscle left more than right. Minimal epidural collection. Moderate narrowing of the left lateral recess. Moderate to severe narrowing of the left neural foramina and mild to moderate narrowing of the right neural foramina. Abutment of bilateral exiting L4 and traversing L5 nerve root. Mild spinal canal stenosis. L5-S1: Disc desiccation with 4 mm right paracentral disc protrusion with small annular tear. Moderate narrowing of the bilateral neural foramina right more than left. Abutment of bilateral exiting L5 nerve root. No significant lateral recess or spinal canal stenosis. Bilateral pars defect without evidence of anterolisthesis. Occult spina bifida of the L5 vertebra. Moderate degenerative changes in the bilateral sacroiliac joints. IMPRESSION: No evidence of acute fracture or subluxation. Normal vertebral body height. Fluid signal intensity at L4-L5 level with subtle erosive changes at the inferior endplate of L4 and superior endplate of the L5 vertebra with bone marrow edema. 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 Moderate narrowing of the left lateral recess and bilateral neural foramina left more than right. Mild spinal canal stenosis. Disc desiccation with disc bulges at L4-L5 and L5-S1 level with moderate degenerative changes as described above. /[place] DICTATED BY: JANKI BELLE Jr., MD DATE: 01/31/25736 ELECTRONICALLY SIGNED BY: JANKI BELLE Jr., MD DATE: 01/31/25 0737 [place] [address] [place] [id number] IMAGING REPORT Signed PATIENT: OSITO OREILLY MR#: [id number] : 1950 SEX: M AGE: 74 LOCATION: 2DH ORDER 2300 STATUS: ADM IN REPORT#: [id number] SERVICE 0600 REASON: chf ORDERING PHYSICIAN: JOSEPHINE AMEZCUA MD PROCEDURE: CXR1VW - CHEST 1VW EXAM: CR Chest, 1 View. CLINICAL HISTORY: CHF COMPARISON: 01/29/2025 FINDINGS: LUNGS: The lungs show no infiltrate or other acute finding. PLEURAL SPACES: No evidence of pleural effusion or pneumothorax. MEDIASTINUM: The cardiomediastinal silhouette is within normal limits. BONES: No aggressive appearing osseous lesion seen. IMPRESSION: No acute cardiopulmonary pathology is evident. No adverse interval changes. /[place] DICTATED BY: JANKI BELLE Jr., MD DATE: 01/31/25 1037 ELECTRONICALLY SIGNED BY: JANKI BELLE Jr., MD DATE: 01/31/25 1037 [place] [address] [id number] IMAGING REPORT Signed PATIENT: OSITO OREILLY MR#: [id number] : 1950 SEX: M AGE: 74 LOCATION: 2DH ORDER 1250 STATUS: ADM IN REPORT#: [id number] SERVICE 1248 REASON: endocarditis with Dr Patito Mujica 01/31 9-10 am ORDERING PHYSICIAN: ANGELA MUJICA MD PROCEDURE: ECHO TONI - ECHO TONI--TRANSESOPHAGEAL APPROVED REPORT EXAM: Transesophageal echocardiogram with color flow Doppler. INDICATION ICD: Endocarditis Reason For Test : Rule out endocarditis. PROCEDURE After obtaining informed consent, patient underwent transesophageal echo in the Patient Room 227. 15 mL 2% Viscous Lidocaine was given as a topical anesthetic prior to the administration of the conscious sedation. Type of Sedation: Conscious Sedation Sedation was administered by Celina Garsia RN. Sedation was achieved with refer to chart intravenously. Transesophageal probe was inserted and advanced into esophagus without difficulty by Dr. Patito Mujica. Echo enhancement indication: R/O Septal defect. Echo enhancement agent administered: Agitated Saline. TONI was performed and images were obtained, probe was removed without complications. Throughout the procedure, the blood pressure, pulse oximetry, cardiac rhythm, and rate were monitored. The patient tolerated the procedure without adverse effects. Recovery from conscious sedation was uneventful and vital signs were stable. Left Ventricle The left ventricle is normal size. There is normal left ventricular wall thickness. LVEF is >55%. Not assessed. Right Ventricle The right ventricle is normal size. The right ventricular systolic function is normal. Atria The left atrium size is normal. Spontaneous contrast in left atrium. No thrombus is visualized in the left atrial appendage. The atrial septum is aneurysmal. No evidence of PFO by color flow Doppler and agitated saline. The right atrium size is normal. Aortic Valve The aortic valve is thickened but opens well. Mild aortic regurgitation. There is no aortic valvular vegetation. There is no aortic valvular stenosis. Mitral Valve The mitral valve is normal in structure. Mitral regurgitation is trace. No mitral valve vegetation. There is no mitral valve stenosis. Tricuspid Valve The tricuspid valve is normal in structure. There is trace tricuspid valve regurgitation noted. There is no tricuspid valve vegetation. Pulmonic Valve Pulmonic valve is not well visualized. There is no pulmonic valvular regurgitation. Great Vessels The aortic root is normal in size. Pericardium There is no pericardial effusion. Conclusion The aortic valve is normal in structure. LVEF is >55%. The right ventricular systolic function is normal. The left atrium size is normal. No thrombus is visualized in the left atrial appendage. No evidence of PFO by color flow Doppler and agitated saline. Mild aortic regurgitation. No evidence of valvular vegetations. There is no pericardial effusion. DICTATED BY: PATITO MUJICA MD DATE: 01/31/25 0918 ELECTRONICALLY SIGNED BY: PATITO MUJICA MD DATE: 02/03/2519 [facility] [address] [place] [id number] IMAGING REPORT Signed PATIENT: OSITO OREILLY MR#: [id number] : 1950 SEX: M AGE: 74 LOCATION: 2DH ORDER 30 STATUS: ADM IN REPORT#: [id number] SERVICE 29 REASON: PICC LINE PLACEMENT ORDERING PHYSICIAN: MAURICIO ESPINOSA MD PROCEDURE: CXR1VW - CHEST 1VW EXAM: CR Chest, 1 View. CLINICAL HISTORY: PICC LINE PLACEMENT COMPARISON: None provided. FINDINGS: Right PICC terminates at the distal SVC. LUNGS: The lungs show no infiltrate or other acute finding. PLEURAL SPACES: No evidence of pleural effusion or pneumothorax. MEDIASTINUM: The cardiomediastinal silhouette is within normal limits. BONES: No aggressive appearing osseous lesion seen. IMPRESSION: No acute cardiopulmonary pathology is evident. /[place] DICTATED BY: JANKI BELLE Jr., MD DATE: 02/01/251953 ELECTRONICALLY SIGNED BY: JANKI BELLE Jr., MD DATE: 02/01/251953 [facility] [address] [place] [id number] IMAGING REPORT Signed PATIENT: OSITO OREILLY MR#: [id number] : 1950 SEX: M AGE: 74 LOCATION: 2DH ORDER 4 STATUS: ADM IN REPORT#: [id number] SERVICE 4 REASON: BLQ PAIN ORDERING PHYSICIAN: ALEJANDRINA BUITRAGO ORTHODONTIST ASSISTANT PROCEDURE: ABD 1VW - ABD 1VW EXAM: CR Abdomen, 1 view. CLINICAL HISTORY: Bilateral lower quadrant pain. COMPARISON: None provided. FINDINGS: Fecal impaction in the distal sigmoid colon and rectum. Nonobstructed nonspecific bowel gas pattern. No free air is evident. No abnormal calcification. No aggressive appearing osseous lesion. Degenerative changes in the bilateral medial hip joint and multilevel degenerative facet arthropathy in the lumbar spine. IMPRESSION: No acute process. Nonobstructive bowel gas pattern. Fecal impaction in the distal sigmoid colon and rectum. /[place] DICTATED BY: JANKI BELLE Jr., MD DATE: 02/02/25658 ELECTRONICALLY SIGNED BY: JANKI BELLE Jr., MD DATE: 02/02/25658 Assessment/Plan: ASSESSMENT: Septic shock with recent diskitis POA Stage 2 pressure ulcer on coccyx POA Acute kidney injury POA, resolved Suspected [place] valve infective endocarditis, POA, ruled out Acute normocytic normochromic anemia POA Acute thrombocytopenia Mild hyponatremia POA Mild hypochloremia POA Lactic acidosis POA Suspected acute urinary tract infection POA, negative cultures PLAN: Medications: * Continue all prescribed IV antibiotics and fluconazole * Take all home medications for blood pressure, diabetes, cholesterol Wound care * Keep the sacral wound clean and dry Activity * Activity as tolerated * Diet * Follow a diabetic and heart healthy diet as recommended * Maintain adequate hydration unless otherwise instructed Monitoring * Monitor for fever, chills, chest pain, SOB * watch for any signs of infection at any site * Follow-up * Follow up with ID, Wound Care, primary care as scheduled within 1-2 weeks Discharge Instructions: Medications: * Continue all prescribed IV antibiotics and fluconazole * Take all home medications for blood pressure, diabetes, cholesterol Wound care * Keep the sacral wound clean and dry Activity * Activity as tolerated * Diet * Follow a diabetic and heart healthy diet as recommended * Maintain adequate hydration unless otherwise instructed Monitoring * Monitor for fever, chills, chest pain, SOB * watch for any signs of infection at any site * Follow-up * Follow up with ID, Wound Care, primary care as scheduled within 1-2 weeks Home Medications: Unable to Obtain Active Prescriptions or Reported Meds Time spent arranging discharge: 1-30 minutes ATTESTATION BY PHYSICIAN I have seen and examined the patient. I reviewed the documentation, medical decision making, and treatment plan as noted by the resident physician above. I agree with the findings and plan of care. DERICK JOHNSON MD, HARSHA MD Feb 10, 2025 19:35
--- NOTE | 2025-02-10 20:06 | PN ---
INFECTIOUS DISEASE PROGRESS NOTE Date of Service: Feb 10, 2025 SUBJECTIVE: During rounding today patient is still pending insurance approval to [facility]. No fever and the WBC remains within normal level. Continues on ampicillin, ceftriaxone and fluconazole. PHYSICAL EXAM EYES: Anicteric. Pupils equal and reactive. HENT: No oral thrush seen, moist Oral mucosa. NECK: Supple, no JVD or thyromegaly. LUNGS: Good air entry. No rales, no rhonchi. CARDIOVASCULAR: S1, S2 regular. No murmur heard. ABDOMEN: Soft, non tender, bowel sounds present. CENTRAL NERVOUS SYSTEM: Awake, alert, oriented x 3. SKIN: No rashes, no swelling. LYMPHATICS: No peripheral lymphadenopathy. MUSCULOSKELETAL: No joint swelling, erythema or tenderness. EXTREMITIES: No cyanosis or clubbing. BACK: Stage II coccygeal ulcer. GENITOURINARY: No dysuria or hematuria. Vital Sign (Last 12 Hours) 02/10/25 02/10/25 02/10/25 09:06 12:00 16:00 Temp 99.9 98.6 Pulse 107 86 Resp 18 18 B/P (MAP) 99/52 103/53 Pulse Ox 100 99 O2 Delivery Room Air* Room Air Room Air O2 Flow Rate 0 FiO2 21 Intake & Output (last 24hrs) 02/09/25 02/09/25 02/10/25 15:00 23:00 07:00 Intake Total 1030.0 ml 600.0 ml Output Total 400 ml 800 ml Balance 1030.0 ml 200.0 ml -800 ml LABS: Laboratory: Test 02/10/25 05:43 02/09/25 05:59 Range/Units White Blood Count 4.2 L 4.8-10.8 K/uL Red Blood Count 3.05 L 4.50-6.20 MIL/uL Hemoglobin 9.9 L 14.0-18.0 g/dL Hematocrit 29.8 L 42-54 % Mean Corpuscular Volume 97.7 79-99 fL Mean Corpuscular Hemoglobin 32.5 27.0-33.0 pg Mean Corpuscular Hemoglobin Concent 33.2 32.0-36.0 g/dL Red Cell Distribution Width 15.4 11.0-15.5 % Platelet Count 107 L 130-400 K/uL Mean Platelet Volume 8.8 7.5-10.5 fL Immature Granulocyte % (Auto) 0.2 0-1 % Neutrophils (%) (Auto) 46.4 40.0-77.0 % Lymphocytes (%) (Auto) 45.8 21.0-51.0 % Monocytes (%) (Auto) 5.9 3.0-13.0 % Eosinophils (%) (Auto) 1.2 0.0-8.0 % Basophils (%) (Auto) 0.5 0.0-5.0 % Neutrophils # (Auto) 2.0 1.8-7.7 K/uL Lymphocytes # (Auto) 1.9 1.0-4.8 K/uL Monocytes # (Auto) 0.3 0.1-1.0 K/uL Eosinophils # (Auto) 0.05 0.00-0.70 K/uL Basophils # (Auto) 0.02 0.00-0.20 K/uL Absolute Immature Granulocyte (auto 0.01 0-1 K/uL Nucleated Red Blood Cells 0.0 0.0-0.19 % Sodium Level 142 136-145 mmol/L Potassium Level 3.6 3.5-5.1 mmol/L Chloride Level 108 101-111 mmol/L Carbon Dioxide Level 27 21-32 mmol/L Blood Urea Nitrogen 13 7-18 mg/dL Creatinine 0.5 0.5-1.3 mg/dL Glomerular Filtration Rate Calc 108 >90 mL/min Random Glucose 107 H 70-105 mg/dL Total Calcium 8.6 8.5-10.1 mg/dL Erythrocyte Sedimentation Rate 62 H 0-20 MM/HR C-Reactive Protein, Quantitative 30.50 H 0.5-3.0 mg/L ASSESSMENT: E coli bacteremia. Lumbar spine osteomyelitis. Mitral valve vegetation, ruled out. Sepsis. Stage II coccygeal ulcer with Jennifer albicans infection. Urinary tract infection. Leukocytosis, resolved. Diabetes mellitus. PLAN: Continue ceftriaxone. Continue fluconazole. Continue ampicillin. Continue cefepime IV. Continue GI prophylaxis. Continue pain management. Continue wound care. Continue antidiabetics. Patient will need 5 weeks of antibiotics. Pending insurance appeal approval to [facility]. This case was reviewed and discussed with my supervising physician Dr. Gandhi and the above assessment and plan was formulated and agreed upon. ATTESTATION BY PHYSICIAN I have seen and examined the patient. I reviewed the documentation, medical decision making, and treatment plan as noted by the mid-level provider above. I agree with the findings and plan of care. MAURICIO GANDHI MD, MIRTA L [facility] Feb 10, 2025 20:06
--- NOTE | 2025-02-10 20:55 | NUR ---
DISCHARGE SPOKE WITH EMS [facility] IS EMS IN ROUTE.
--- NOTE | 2025-02-10 21:18 | NUR ---
DISCHARGE EMS IN ROOM WITH PATIENT LEAVING AT THIS TIME TO [facility], PATIENT ALERT AND ORIENTED X 3, DENIES PAIN. ROOM CHECKED, ALL BELONGINGS WITH PATIENT ON STRETCHER. PACKET WITH MOT TAKEN WITH PATIENT TO [facility].
== END 2025-02-10 21:18 | DRG 871 ==
LOC: EDH 13:51 → EDHIP 19:36 → 2BH 22:30 → 2DH 01-29 15:15 → 1MS 02-03 17:20 → 3DH 02-04 16:20
PROVIDERS: ADMIT Hospitalist; ATTEND Hospitalist
PROC: B246ZZ4 Ultrasonography of Right and Left Heart, Transesophageal (ICD-10-PCS; principal; 2025-01-31)
PROC: 02HV33Z Insertion of Infusion Device into Superior Vena Cava, Percutaneous Approach (ICD-10-PCS; 2025-02-01)
DX: A41.9 Sepsis, unspecified organism (principal); G06.2 Extradural and subdural abscess, unspecified; R65.21 Severe sepsis with septic shock; E87.20 Acidosis, unspecified; L89.152 Pressure ulcer of sacral region, stage 2; M46.26 Osteomyelitis of vertebra, lumbar region; D69.6 Thrombocytopenia, unspecified; D63.8 Anemia in other chronic diseases classified elsewhere; I11.0 Hypertensive heart disease with heart failure; M60.9 Myositis, unspecified; N17.9 Acute kidney failure, unspecified; N30.00 Acute cystitis without hematuria; B95.2 Enterococcus as the cause of diseases classified elsewhere; B96.20 Unspecified Escherichia coli [E. coli] as the cause of diseases classified elsewhere; B96.89 Other specified bacterial agents as the cause of diseases classified elsewhere; K74.60 Unspecified cirrhosis of liver; E11.69 Type 2 diabetes mellitus with other specified complication; E66.9 Obesity, unspecified; E87.1 Hypo-osmolality and hyponatremia; E78.5 Hyperlipidemia, unspecified; M46.46 Discitis, unspecified, lumbar region; K56.41 Fecal impaction; N28.1 Cyst of kidney, acquired; I48.0 Paroxysmal atrial fibrillation; B37.2 Candidiasis of skin and nail; E87.8 Other disorders of electrolyte and fluid balance, not elsewhere classified; Z74.01 Bed confinement status; Z83.3 Family history of diabetes mellitus; Z90.49 Acquired absence of other specified parts of digestive tract; Z68.22 Body mass index [BMI] 22.0-22.9, adult
CPT/HCPCS: 36415; 36569; 36600; 71045; 72158; 74018; 76700; 80048; 80053; 80076; 80202; 81001; 82140; 82533; 82550; 82803; 83605; 83735; 84100; 84145; 84484; 85025; 85027; 85610; 85651; 85730; 86140; 87040; 87076; 87086; 87186; 93005; 93308; 93312; 93325; 93356; 96374; 96375; 99285; C1894; G0378; J0290; J0692; J0696; J1644; J2250; J2405; J2543; J3010; J3373; J3475; J3490; J7030; J7120; A9575; C1751